=== PATIENT | female | born 1970 | race Caucasian/White ===

== ENCOUNTER → 2017-10-28 16:14 | Outpatient (CLI) | payer OTHER, SELFPAY ==
--- NOTE | 2017-10-28 16:20 | MRI_ITS ---
STUDY: MRI LUMBAR SPINE WITHOUT CONTRAST REASON FOR EXAM: Female, 47 years old. Back and bilateral leg pain. TECHNIQUE: Standardized fat and water weighted pulse sequences were obtained in the sagittal and axial planes. COMPARISON: Radiographs of the lumbar spine dated August 20, 2007. FINDINGS: There is a focus of abnormal signal within the inferior aspect of the T11 vertebral body. This is bright on the T1-weighted images and dark on the T2-weighted images. T12-L1: Normal endplates. Normal disc height, signal and morphology. Normal bilateral facet joints. Normal central canal and bilateral lateral recesses. Normal bilateral intervertebral neural foramina. Normal lumbar lordosis. There is no substantial scoliosis. Normal conus medullaris that terminates at the T12-L1. There appears to be a lipoma of the filum extending from L1-L2 to L3. L1-2: Normal endplates. Normal disc height, signal and morphology. Normal bilateral facet joints. Normal central canal and bilateral lateral recesses. Normal bilateral intervertebral neural foramina. L2-3: Normal endplates. Normal disc height, signal and morphology. Normal bilateral facet joints. Normal central canal and bilateral lateral recesses. Normal bilateral intervertebral neural foramina. L3-4: Normal endplates. Normal disc height, signal and morphology. Normal bilateral facet joints. Normal central canal and bilateral lateral recesses. Normal bilateral intervertebral neural foramina. L4-5: There is mild annular disk bulge and osteophyte complex. There is mild degenerative arthropathy of the facet joints. Bilateral neuroforamina are narrowed without MR evidence for nerve impingement. There is no significant central canal stenosis. L5-S1: There is a broad left central foraminal disc protrusion with possible small annular tear. There is questionable impingement of the left S1 nerve root at the lateral recess. Neural foramina are mildly narrowed without evidence for nerve impingement at the neural foramina. No significant central acquired canal stenosis. Normal visualized sacral ala. Normal visualized paraspinous soft tissue structures. MRI/Spine Lumbar (Routine) IMPRESSION: 1. 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 2. Lipoma of the filum. Electronically Signed: Dayana Nicole MD at 0:00 EST , Service support ,
== END ==
PROVIDERS: Family Provider Internal Medicine; PCP Internal Medicine; Visit Provider Internal Medicine Rheumatology
DX: M54.16 Radiculopathy, lumbar region (principal)
CPT/HCPCS: 72148

== ENCOUNTER 2018-08-15 00:35 | Emergency (ER) | payer OTHER, SELFPAY ==
[2018-08-15] VITALS (7 sets, daily range): BP systolic 121–159; BP diastolic 64–99; PULSE 65–79; RESP 10–20; TEMP 36.4–36.7; O2SAT 98–100; BMI 21.2
--- NOTE | 2018-08-15 01:07 | EKG12_ITS ---
Test Reason : SOB Blood Pressure : / mmHG Vent. Rate : 066 BPM Atrial Rate : 066 BPM P-R Int : 118 ms QRS Dur : 080 ms QT Int : 396 ms P-R-T Axes : 060 033 041 degrees QTc Int : 415 ms Normal sinus rhythm Normal ECG Confirmed by SHANTEL CALLAHAN, SAM ([id number]), assignment desk editor ATTILA RAMIREZ ([id number] on 08/17/2018 3:13:16 PM Referred By: ALONSO Confirmed By:SAM FUNES MD
--- NOTE | 2018-08-15 01:08 | CT_ITS ---
STUDY: CTA CHEST REASON FOR EXAM: Female, 48 years old. Shortness of breath. Pain right shoulder blade with inspiration. Elevated blood pressure. RADIATION DOSAGE (If Supplied By Facility): CTDIvol = ( 5.66 ) mGy, DLP = ( 260.44 ) mGycm TECHNIQUE: The examination was performed with the intravenous administration of 75ML ml of Isovue 370 contrast material. Post-processing of the angiographic images was performed, with multiplanar reformation and 3D reconstruction. Individualized dose optimization techniques were used for this CT. COMPARISON: March 26, 2014. FINDINGS: Normal enhancement of the main pulmonary artery and right and left pulmonary arteries. Normal enhancement of the bilateral peripheral pulmonary arteries. There is no demonstrated pulmonary embolism. Normal thoracic aorta and visualized great vessels. There is no demonstrated aortic dissection. Normal heart and pericardium. Normal mediastinum. Normal hilar regions. Normal visualized trachea and bronchi. The lungs are well expanded. Normal pulmonary parenchyma. Normal pleura. Normal chest wall structures. Normal osseous structures. Normal visualized upper abdomen. CT/CTA Chest W/WO Contrast IMPRESSION: Normal CTA chest examination, without a demonstrated pulmonary embolism or arterial dissection. Electronically Signed: Onel Mahajan MD at 2:45 EST , Service support ,
[2018-08-15 01:25] LABS: Absolute Lymphocyte Count 1.97 X10^3/ul (0.83-4.51); Absolute Neutrophil Count 3.1 X10^3/uL (2.0-7.7); Basophil# 0.03 X10^3/uL; Basophil% 0.5 % (0-1); Eosinophils% 1.8 % (0-5); Hematocrit 33.7 % (37-47); Hemoglobin 11.4 g/dl (12.0-15.0); Lymphocyte # 1.97 X10^3/ul (4.0); Lymphocyte % 34.9 % (19-41); Mean Corp Hgb Conc 33.8 g/gl (32-36); Mean Corpuscular Hgb 31.6 pg (27.0-32.0); Mean Corpuscular Volume 93.4 fL (81-99); Monocyte# 0.48 X10^3/uL; Monocyte% 8.5 % (0-10); Neutrophil # 3.06 X10^3/uL (2.7-7.7); Neutrophil % 54.1 % (47-70); Platelet Count 264 K/mm3 (150-450); RBC Distribution Width CV 12.2 % (11.6-14.6); RBC Distribution Width SD 39.9 fl (35.1-43.9); Red Blood Count 3.61 M/mm3 (4.2-5.4); White Blood Count 5.7 K/mm3 (4.4-11.0)
[2018-08-15 01:26] LABS: POSITIVE COUNT NO; POSITIVE DIFFERENTIAL NO; POSITIVE MORPHOLOGY NO
[2018-08-15 01:31] LABS: Prothrombin Time (Protime)PT. 12.9 SECONDS (11.7-14.9)
[2018-08-15 01:46] LABS: ALB/GLOB Ratio 1.1 RATIO (0.9-2.4); AST(SGOT) 110 U/L (15-37); Alanine Aminotransfer ALT/SGPT 79 U/L (13-56); Albumin, Serum 3.6 g/dL (3.2-5.0); Alkaline Phosphatase 81 U/L (45-117); Anion Gap 8 (5-15); BUN 17 mg/dL (7-18); BUN/Creat Ratio 25.4 RATIO (10-20); Chloride 107 mmol/L (98-107); Creatinine, Serum 0.67 mg/dL (0.55-1.02); EST Glomerular Filtration Rate 100 mL/min (>60); Est Glom Filt Rate - Afr Amer 121 mL/min (>60); Estimated Creatinine Clearance 102.94 ml/min; Globulin 3.4 g/dL (2.2-4.2); Glucose 110 mg/dL (74-106); Lipase 215 U/L (73-393); Potassium 3.7 mmol/L (3.5-5.1); Sodium Level 141 mmol/L (136-145)
--- NOTE | 2018-08-15 03:13 | US_ITS ---
STUDY: ABDOMINAL ULTRASOUND - RIGHT UPPER QUADRANT REASON FOR VISIT: Female, 48 years old. Right upper quadrant pain radiating to back for 2 days. TECHNIQUE: Ultrasound evaluation of the right upper quadrant was performed with real-time and static damon-scale imaging. TECHNICAL QUALITY: Adequate. COMPARISON: CTA chest August 15, 2018. FINDINGS: Liver: The liver measures 13.6 cm. There is normal echogenicity of the liver. The bile ducts are within normal limits. There is hepatic color flow. The direction of portal flow is hepatopetal. There is no demonstrated mass lesion. Gallbladder: Normal distended gallbladder. The gallbladder wall measures 2 mm. There is a negative sonographic Arreola's sign. There is no pericholecystic fluid. There are no gallstones. Common Bile Duct (C.B.D.): The common bile duct measures 3 mm. Pancreas: Normal size of the head, body and tail of the pancreas. There is normal echogenicity of the pancreas. There is no demonstrated pancreatic mass or cyst. Right Kidney: Normal size of the right kidney. The right kidney measures 10.8 cm. Normal renal cortex. The right cortex measures 1.3 cm. There is no demonstrated renal mass or cyst. There is no right hydronephrosis. US/Gallbladder IMPRESSION: Normal right upper quadrant ultrasound examination. Electronically Signed: Onel Mahajan MD at 5:42 EST , Service support ,
--- NOTE | 2018-08-15 05:53 | ED.VISSUMM ---
- ER Visit Summary Date of Service: 08/15/18 Chief Complaint: Epigastric abdominal pain and bloating, chest pain, shortness of breath History of Present Illness: The patient is a 48 F who presents with chest pain shortness of breath and abdominal bloating. She has been taking a lot of Advil for recent dry socket after a dental extraction last week. She was also recently started on penicillin. She complains of epigastric abdominal bloating and tightness and states that this radiates into her chest and through into her back. Her pain is worse with deep breathing. She feels short of breath and feels as if she cannot take a full breath. She also had palpitations. She reports chills but no fever. No nausea vomiting or diarrhea. No congestion rhinorrhea or cough. No history of prior similar symptoms. She has a history of mitral valve prolapse but really no other medical history. No diabetes hypertension hyperlipidemia. No recent travel or immobilization. No history of prior DVT pulmonary embolism or cancer. Physical Examination: Afebrile vitals are normal Moist mucous membranes Heart regular rate and rhythm Lungs are clear Abdomen soft nontender nondistended 1+ symmetric lower extremity edema nontender Test Results: EKG shows sinus rhythm at a rate of 66. Laboratory studies notable for ALT of 79 AST of 170 lipase of 45. INR 1.0. Troponin is negative. CTA of the chest is normal. Right upper quadrant ultrasound is normal. Emergency Department Course and Treatment: Initially given patient's complaints of chest pain shortness of breath pleuritic pain radiation to the back and surgery last week I was concerned about pulmonary embolism. CTA of the chest was obtained which is unremarkable. She does have mild elevation of her transaminases. Given her reports of abdominal bloating and epigastric discomfort I also obtained a right upper quadrant ultrasound which is normal. I am uncertain of the etiology of the patient's symptoms although the bloating could be related to her recent NSAID use and a component of gastritis. I do not believe the patient has any serious life-threatening pathology I do not believe hospitalization is warranted at this time however she was given clear return precautions of specific signs and symptoms to monitor for and conditions which should prompt return here to the emergency department for reevaluation. She was advised to follow-up with her primary care physician. All questions answered bedside. Patient agreeable to the plan was discharged home. Treatment Plan: [] Disposition: Discharge Impression: Chest pain Abdominal pain This note was generated with Maintenance Assistant dictation software. It may contain incorrect words, spelling, and punctuation that were not noted in review of the chart prior to signing ED Disposition - Plan for ED Patient: Chief Complaint: Shortness of Breath Referrals: Mary Díaz MD [Primary Care Provider] -
--- NOTE | 2018-08-15 05:56 | ED.DEP ---
ED Disposition - Plan for ED Patient: Chief Complaint: Shortness of Breath Instructions: ED Chest Pain NonCardiac, ED Abdominal Pain Unkn Cause Referrals: Mary Díaz MD [Primary Care Provider] -
--- OUTSIDE RECORDS SUMMARY | 2018-11-16 14:16 | XMS RPT_ITS ---
:1970 Author Organization [facility] Care Team Providers Name Role Phone DOMONIQUE DÍAZ Attending Unavailable MARYAM EMMANUEL (COVERED BUCKLE ASSEMBLER) Attending Unavailable DOMONIQUE DÍAZ Referring Unavailable TALAMPDOMONIQUE ALFONSO Attending Unavailable DOMONIQUE DÍAZ Referring Unavailable GANSHIRA RUBI Attending Unavailable CHAPO POON Referring Unavailable GANTA, SHIRA Referring Unavailable Talampas, Domonique Primary Care Unavailable Chapo Poon Attending Unavailable SEN MCQUEEN Attending Unavailable SEN MCQUEEN Referring Unavailable Talampas, Domonique Primary Care Unavailable PROBLEMS PROBLEMS DATE TYPE CONDITION / CODE ATTENDING STATUS SOURCE 08/24/2018 Active Abnormal levels NA Active [facility] of other serum [facility] [place] enzymes / Repository R74.8(ICD-10) 09/09/2018 Unknown R10.13 - Chapo Poon Active [facility] Epigastric pain / Community R10.13(ICD-10) Hospital Repository 06/02/2018 Active Other terminal 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 NA Active [facility] (current) drug [facility] [place] therapy / Repository Z79.899(ICD-10) 06/02/2018 Active Vitamin D NA Active [facility] deficiency, [facility] [place] unspecified / Repository E55.9(ICD-10) PROCEDURES PROCEDURES No Procedure Records FoundRESULTS RESULTS HEPATIC FUNCTN PANEL Collected: 08/24/2018 Status: F Source: [place] 12:06 PM [facility] REPOSITORY TYPE CODE TESTS RESULT OUT OF REFERENCE UNITS RANGE LAB ALB 3.9-4.9 g/dL Albumin 4.3 LAB TBIL 0.2-1.3 mg/dL Bilirubin, Total 0.5 LAB CBIL <0.2 mg/dL Bilirubin,Conjuga <0.2 marti LAB ALKP 34-123 U/L Alkaline Phosphatase 39 LAB AST 13-35 U/L AST 14 LAB ALT 7-38 U/L ALT 10 LAB TP 6.3-8.0 g/dL Protein, Total 6.6 GGT Collected: 08/24/2018 Status: F Source: [place] 12:06 PM [facility] TYPE CODE TESTS RESULT OUT OF RANGE REFERENCE UNITS LAB GGT 6-46 U/L GGT 36 Performed By: #### GGT #### [place] [address] [place] [address] HEPATITIS REMOTE PANEL Collected: 08/24/2018 Status: F Source: [place] 12:06 PM [facility] REPOS[facility]ORY TYPE CODE TESTS RESULT OUT OF REFERENCE UNITS RANGE LAB AHBCOT Negative Hep B Core Ab,Total Negative LAB AHCV Negative Hepatitis C Ab Negative IA LAB HBSAGR Negative HBsAg Negative LAB AHBSAG Negative HepB Surface Ab,Qual Negative Result Comment: NEGATIVE Performed By: #### HREMOP #### [place] [address] 12 LEAD ELECTROCARDIOGRAM Observed: 08/17/2018 Status: F Source: [place] 3:13 PM [facility] REPOSITORY [facility] Cardiovascular Services [address] [place] [address] 12 Lead EKG 08/15/18 0117 MR#: [id number] Acct: [id number] Name: PARIS BERGERON Rep #: [id number] : 1970 48 From: Jose Francois MD Attending Dr: Status: DEP ER Ordering Dr: Chapo Poon MD Date: 08/15/18 Location: ED Sex: F C Admitted: Test Reason : SOB Blood Pressure : / mmHG Vent. Rate : 066 BPM Atrial Rate : 066 BPM P-R Int : 118 ms QRS Dur : 080 ms QT Int : 396 ms P-R-T Axes : 060 033 041 degrees QTc Int : 415 ms Normal sinus rhythm Normal ECG Confirmed by SHANTEL CALLAHAN, JOSE ([id number]), offline editor ATTILA RAMIREZ ([id number]) on 08/17/2018 3:13:16 PM Referred By: ALONSO Confirmed By:JOSE FRANCOIS MD 08/17/18 1513 Date Jose Francois MD CC: Chapo Poon MD; Domonique Díaz MD Signed PROGRESS Observed: 08/16/2018 Status: COMPLETED Source: [place] 2:42 PM [facility] REPOSITORY O ID: [id number] Author: Shira Valdez Service: (none) Author Type: Physician Type: Progress Notes Filed: 08/16/2018 5:20 PM Note Text: Reason for Visit Patient presents with: new limited: hospital follow up-swelling in legs and feet and short of breath- Paris Bergeron is a 48 year old female who presents here today for Above Complaints.. Health Maintenance DTAP,TDAP,TD(1 - Tdap) MAMMOGRAM INFLUENZA(1) HPI The went to ER with chest pain, SOB and abdominal Pain, she had CTA to rule out PE, which was negative ..She then had US liver due to elevated LFTs AST was 110 and ALT was 79. Her abdominal pain was thought to be from NSAID use. She has heart palpitations and metoprolol usually takes care of it. She drinks a lot of caffeine recently. The last time she took the NSAID'S was in April. She was asked if she was on any type of steroids on the vitamin D. Her creat was normal, BUN was high. She is drinking around 1 to 2 cups a day, notes if she drinks more she feels very anxious. She has chronic headache, her nausea was better than in the past. From chronic gerd she is on H arnulfo to continue the same. Due to her comlaint of back pain, she had her lipase and pancrease checked with ct and it has been normal in imaging with a negative lipase level. No problem-specific Assessment AND Plan notes found for this encounter. 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 - Mammographic microcalcification - Mitral valve disorders(424.0) MVP - Other and unspecified hyperlipidemia PAST SURGICAL HISTORY Procedure Laterality Date - DELIVERY ONLY , low cervical - EGD W/O OR W/BRUSH/WASH 06/15/2013 EGD - PAST SURGICAL HISTORY OF urethra stretching age 2 - PAST SURGICAL HISTORY OF DANDC - PAST SURGICAL HISTORY OF wisdom teeth - REPAIR UMBILICAL JAMMIE,<5Y/O,REDUC 2001 Hernia repair, umbilical <5yr FAMILY HISTORY Problem Relation Age of Onset - Hypertension Mother - Diabetes Mother - Stroke Mother carotid disease - Heart Father GA - Hypertension Maternal Grandmother - Heart Maternal Grandfather - Diabetes Maternal Grandfather - Breast Cancer Paternal Grandmother - Heart Brother GA - Hypertension Brother Social History Substance Use Topics - Smoking status: Never Smoker - Smokeless tobacco: Never Used - Alcohol use Yes Comment: 1-2 wine or beer a week Past medical history, appointments, medications, allergies reviewed. Pertinent Lab/Diagnostic Studies are reviewed and discussed today Current Outpatient Prescriptions: - Cholecalciferol, Vitamin D3, 2,000 unit cap - metoprolol succinate ER (TOPROL XL) 50 mg 24 hr tablet - rosuvastatin (CRESTOR) 10 mg tablet - sucralfate (CARAFATE) 1 gram tablet Review of Systems CONSTITUTIONAL: No fevers, chills night sweats, unintended weight loss CARDIOVASCULAR: No chest pain, dyspnea, palpitations, orthopnea, PND, ankle edema. PULM: No dyspnea, unexplained cough. GI: No dysphagia/odynophagia, problematic reflux, constipation, diarrhea, changes in stool habits, hematochezia, melena. : No new urinary complaints, including dysuria, gross hematuria or pyuria. NEURO: No new balance problems, peripheral weakness/paresthesias or numbness of concern. Physical Exam Pulse 83 Resp 12 Ht 151.1 cm (4' 11.5) Wt 67.1 kg (148 lb) SpO2 100% BMI 29.39 kg/m? General appearance: Well appearing, alert, in no acute distress, well nourished. Skin: Skin color, texture, turgor normal, no suspicious rashes or lesions Head: Normocephalic, no masses, lesions, tenderness or abnormalities Eyes: Anicteric sclera. Pupils are equally round and reactive to light. Extraocular movements are intact. Lungs: Lungs clear to auscultation. No wheezing, rhonchi, rales Heart: RRR without murmur, gallop, or rubs. Extremities: No deformities, edema- trace , No skin discoloration, clubbing or cyanosis. Good capillary refill. ASSESSMENT/PLAN: 1. Elevated liver enzymes - ICD9: 790.5, ICD10: R74.8 (primary diagnosis) I think her issues are from taking round the clock, tylenol and brufen. Can explain her swelling in the legs, and her liver enzymes, Discussed this with her, asked her to report back to me in 1 week if her swelling has not subsided - HEPATIC FUNCTION PNL - GGT BLD - HEP REMOTE PANEL BL 2. MVP (mitral valve prolapse) - ICD9: 424.0, ICD10: I34.1 To limit coffee to one cup a day. 3. Gastroesophageal reflux disease without esophagitis - ICD9: 530.81, ICD10: K21.9 - Discussed lifestyle modifications including losing weight, limiting caffeine, no meals three hours before sleep and head of bed elevation. SHIRA VALDEZ MD CNOV Observed: 08/16/2018 Status: COMPLETED Source: [place] 2:40 PM [facility] RE[facility]ITORY Office Visit (INTMWS) PARIS BERGERON ([id number]) 1970 F Date Time Provider Department 08/16/18 2:40 PM SHIRA VALDEZ INTMWS During your visit today, we recorded the following information about you: Temperature Pulse Respiration Blood pressure 98.7 degrees 83/minute 12/minute 122/66 Weight Height 67.1 kg 1.511 m SHIRA VALDEZ MD 08/16/2018 5:20 PM Addendum Reason for Visit Patient presents with: new limited: hospital follow up-swelling in legs and feet and short of breath- Dr.Talamapas Paris Nassar Rubio is a 48 year old female who presents here today for Above Complaints.. Health Maintenance DTAP,TDAP,TD(1 - Tdap) MAMMOGRAM INFLUENZA(1) HPI The went to ER with chest pain, SOB and abdominal Pain, she had CTA to rule out PE, which was negative ..She then had US liver due to elevated LFTs AST was 110 and ALT was 79. Her abdominal pain was thought to be from NSAID use. She has heart palpitations and metoprolol usually takes care of it. She drinks a lot of caffeine recently. The last time she took the NSAID'S was in April. She was asked if she was on any type of steroids on the vitamin D. Her creat was normal, BUN was high. She is drinking around 1 to 2 cups a day, notes if she drinks more she feels very anxious. She has chronic headache, her nausea was better than in the past. From chronic gerd she is on H arnulfo to continue the same. Due to her comlaint of back pain, she had her lipase and pancrease checked with ct and it has been normal in imaging with a negative lipase level. No problem-specific Assessment AND Plan notes found for this encounter. 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 - Mammographic microcalcification - Mitral valve disorders(424.0) MVP - Other and unspecified hyperlipidemia PAST SURGICAL HISTORY Procedure Laterality Date - DELIVERY ONLY , low cervical - EGD W/O OR W/BRUSH/WASH 06/15/2013 EGD - PAST SURGICAL HISTORY OF urethra stretching age 2 - PAST SURGICAL HISTORY OF DANDC - PAST SURGICAL HISTORY OF wisdom teeth - REPAIR UMBILICAL JAMMIE,<5Y/O,REDUC 2001 Hernia repair, umbilical <5yr FAMILY HISTORY Problem Relation Age of Onset - Hypertension Mother - Diabetes Mother - Stroke Mother carotid disease - Heart Father [place] - Hypertension Maternal Grandmother - Heart Maternal Grandfather - Diabetes Maternal Grandfather - Breast Cancer Paternal Grandmother - Heart Brother [place] - Hypertension Brother Social History Substance Use Topics - Smoking status: Never Smoker - Smokeless tobacco: Never Used - Alcohol use Yes Comment: 1-2 wine or beer a week Past medical history, appointments, medications, allergies reviewed. Pertinent Lab/Diagnostic Studies are reviewed and discussed today Current Outpatient Prescriptions: - Cholecalciferol, Vitamin D3, 2,000 unit cap - metoprolol succinate ER (TOPROL XL) 50 mg 24 hr tablet - rosuvastatin (CRESTOR) 10 mg tablet - sucralfate (CARAFATE) 1 gram tablet Review of Systems CONSTITUTIONAL: No fevers, chills night sweats, unintended weight loss CARDIOVASCULAR: No chest pain, dyspnea, palpitations, orthopnea, PND, ankle edema. PULM: No dyspnea, unexplained cough. GI: No dysphagia/odynophagia, problematic reflux, constipation, diarrhea, changes in stool habits, hematochezia, melena. : No new urinary complaints, including dysuria, gross hematuria or pyuria. NEURO: No new balance problems, peripheral weakness/paresthesias or numbness of concern. Physical Exam Pulse 83 Resp 12 Ht 151.1 cm (4' 11.5) Wt 67.1 kg (148 lb) SpO2 100% BMI 29.39 kg/m? General appearance: Well appearing, alert, in no acute distress, well nourished. Skin: Skin color, texture, turgor normal, no suspicious rashes or lesions Head: Normocephalic, no masses, lesions, tenderness or abnormalities Eyes: Anicteric sclera. Pupils are equally round and reactive to light. Extraocular movements are intact. Lungs: Lungs clear to auscultation. No wheezing, rhonchi, rales Heart: RRR without murmur, gallop, or rubs. Extremities: No deformities, edema- trace , No skin discoloration, clubbing or cyanosis. Good capillary refill. ASSESSMENT/PLAN: 1. Elevated liver enzymes - ICD9: 790.5, ICD10: R74.8 (primary diagnosis) I think her issues are from taking round the clock, tylenol and brufen. Can explain her swelling in the legs, and her liver enzymes, Discussed this with her, asked her to report back to me in 1 week if her swelling has not subsided - HEPATIC FUNCTION PNL - GGT BLD - HEP REMOTE PANEL BL 2. MVP (mitral valve prolapse) - ICD9: 424.0, ICD10: I34.1 To limit coffee to one cup a day. 3. Gastroesophageal reflux disease without esophagitis - ICD9: 530.81, ICD10: K21.9 - Discussed lifestyle modifications including losing weight, limiting caffeine, no meals three hours before sleep and head of bed elevation. SHIRA VALDEZ MD Referring Provider: CHAPO POON [[id number]] Allergies As of Date: 08/16/2018 Noted Allergy Reaction LEVAQUIN (LEVOFLOXACIN) 06/24/2011 14 - Other: See Comments Comments: Numbness, palpitations ALEVE (NAPROXEN SODIUM) 05/18/2013 14 - Other: See Comments Comments: BP elevation CODEINE 10/20/2007 8 - GI Upset Comments: Heart pounding Date Reviewed: 08/16/2018 Reviewed by: Mellisa Ralph LPN - Fully Assessed Reason for Visit: new limited [Other] Cmt: hospital follow up-swelling in legs and feet and short of breath- Primary Visit Diagnosis:Elevated liver enzymes [R74.8] Other Visit Diagnoses:MVP (mitral valve prolapse) [I34.1] Gastroesophageal reflux disease without esophagitis [K21.9] Order(s):HEPATIC FUNCTION PNL [SQHFP] Order #: [id number] FUTURE GGT BLD [SQGGT] Order #: [id number] FUTURE HEP REMOTE PANEL BL [SQHREMOP] Order #: [id number] FUTURE ranitidine (ZANTAC) 150 mg tabletTake 1 tablet by mouth twice daily.Disp: 60 tabletRfl: 1 Prescriptions as of 08/16/2018 Sig: CHOLECALCIFEROL (VITAMIN D3) * Take 2 capsules by mouth once* METOPROLOL SUCCINATE ER 50 MG* Take 1 tablet by mouth once d* RANITIDINE 150 MG TABLET Take 1 tablet by mouth twice * ROSUVASTATIN 10 MG TABLET Take 1 tablet by mouth daily * SUCRALFATE 1 GRAM TABLET Take 1 tablet by mouth before* More... Problem List As Of Date 08/16/2018 Noted Resolved Palpitations [R00.2] INVALID FOR*10/14/2015 More... Lumbago [M54.5] INVALID FOR*03/16/2014 More... Dermatophytosis of nail [B35.1] INVALID FOR*06/16/2013 More... Overweight(278.02) [E66.3] INVALID FOR*10/14/2015 Other and unspecified hyperlipidemia [E78.5] INVALID FOR*10/14/2015 More... MVP (mitral valve prolapse) [I34.1] INVALID FOR* Cervicalgia [M54.2] INVALID FOR* Epigastric pain [R10.13] INVALID FOR*10/14/2015 Family history of ischemic heart disease [Z82.4*INVALID FOR* Dysuria [R30.0] INVALID FOR*10/14/2015 Bilateral flank pain [R10.9] INVALID FOR*10/14/2015 Vaginal discharge [N89.8] INVALID FOR*10/14/2015 History of myositis [Z87.39] INVALID FOR* Lumbago [M54.5] INVALID FOR* Hyperlipidemia [E78.5] INVALID FOR* Atypical chest pain [R07.89] INVALID FOR* Raynaud's phenomenon without gangrene [I73.00] INVALID FOR* Prescriptions ordered this encounter Disp Refills Start End RANITIDINE 150 MG TABLET 60 t* 1 08/16/2018 Route: ORAL Sig: Take 1 tablet by mouth twice daily. Encounter Status:Closed by SHIRA VALDEZ MD on 08/16/18 DISCHARGE INSTRUCTION Observed: 08/15/2018 Status: F Source: [place] 5:57 AM [facility] Medical Records Department [address] [place] [address] Discharge Instruction 08/15/18 0556 MR#: [id number] Acct: [id number] Name: PARIS BERGERON Rep #: [id number] : 1970 48 From: Chapo Poon MD PCP: Domonique Díaz MD Status: REG ER ED Disposition - Plan for ED Patient: Chief Complaint: Shortness of Breath Instructions: ED Chest Pain NonCardiac, ED Abdominal Pain Unkn Cause Referrals: Domonique Díaz MD [Primary Care Provider] - What to do if you have Problems For any increased pain, shortness of breath, bleeding, nausea or vomiting, chest pain, or any unexpected problems, contact your Primary Care Provider. Call [facility] ([phone]) or report to the closest Emergency Room. Call 911 if necessary. 08/15/18 0557 <Electronically signed by Chapo Poon MD> Date Chapo Poon MD Cosigner Signature (If Indicated): Date CC: Domonique íDaz MD EMERGENCY DEPARTMENT Observed: 08/15/2018 Status: F Source: [place] SUMMARY 5:56 AM [facility] REPOSITORY [facility] Medical Records Department [address] [place] [address] Emergency Department Summary 08/15/18 0553 MR#: [id number] Acct: [id number] Name: PARIS BERGERON Rep #: [id number] : 1970 48 From: Chapo Poon MD PCP: Domonique Díaz MD Status: REG ER - ER Visit Summary Date of Service: 08/15/18 Chief Complaint: Epigastric abdominal pain and bloating, chest pain, shortness of breath History of Present Illness: The patient is a 48 F who presents with chest pain shortness of breath and abdominal bloating. She has been taking a lot of Advil for recent dry socket after a dental extraction last week. She was also recently started on penicillin. She complains of epigastric abdominal bloating and tightness and states that this radiates into her chest and through into her back. Her pain is worse with deep breathing. She feels short of breath and feels as if she cannot take a full breath. She also had palpitations. She reports chills but no fever. No nausea vomiting or diarrhea. No congestion rhinorrhea or cough. No history of prior similar symptoms. She has a history of mitral valve prolapse but really no other medical history. No diabetes hypertension hyperlipidemia. No recent travel or immobilization. No history of prior DVT pulmonary embolism or cancer. Physical Examination: Afebrile vitals are normal Moist mucous membranes Heart regular rate and rhythm Lungs are clear Abdomen soft nontender nondistended 1+ symmetric lower extremity edema nontender Test Results: EKG shows sinus rhythm at a rate of 66. Laboratory studies notable for ALT of 79 AST of 170 lipase of 45. INR 1.0. Troponin is negative. CTA of the chest is normal. Right upper quadrant ultrasound is normal. Emergency Department Course and Treatment: Initially given patient's complaints of chest pain shortness of breath pleuritic pain radiation to the back and surgery last week I was concerned about pulmonary embolism. CTA of the chest was obtained which is unremarkable. She does have mild elevation of her transaminases. Given her reports of abdominal bloating and epigastric discomfort I also obtained a right upper quadrant ultrasound which is normal. I am uncertain of the etiology of the patient's symptoms although the bloating could be related to her recent NSAID use and a component of gastritis. I do not believe the patient has any serious life-threatening pathology I do not believe hospitalization is warranted at this time however she was given clear return precautions of specific signs and symptoms to monitor for and conditions which should prompt return here to the emergency department for reevaluation. She was advised to follow-up with her primary care physician. All questions answered bedside. Patient agreeable to the plan was discharged home. Treatment Plan: [] Disposition: Discharge Impression: Chest pain Abdominal pain This note was generated with Guidefitter dictation software. It may contain incorrect words, spelling, and punctuation that were not noted in review of the chart prior to signing ED Disposition - Plan for ED Patient: Chief Complaint: Shortness of Breath Referrals: Domonique Díaz MD [Primary Care Provider] - What to do if you have Problems For any increased pain, shortness of breath, bleeding, nausea or vomiting, chest pain, or any unexpected problems, contact your Primary Care Provider. Call [facility] ([phone]) or report to the closest Emergency Room. Call 911 if necessary. 08/15/18 0556 <Electronically signed by Chapo Poon MD> Date Chapo Poon MD Cosigner Signature (If Indicated): Date CC: Domonique Díaz MD GALLBLADDER Observed: 08/15/2018 Status: F Source: [place] 3:13 AM [facility] REPOSITORY [facility] Imaging Services [address] [place] [address] [place] [address] Gallbladder MR#: [id number] Acct: [id number] Name: PARIS BERGERON Rep #: [id number] : 1970 F 48 From: Onel Mahajan PCP: Domonique Díaz MD Status: REG ER Study: Gallbladder Date of Exam: 08/15/18 Exam# [id number] Ordering Dr: Chapo Poon MD STUDY: ABDOMINAL ULTRASOUND - RIGHT UPPER QUADRANT REASON FOR VISIT: Female, 48 years old. Right upper quadrant pain radiating to back for 2 days. TECHNIQUE: Ultrasound evaluation of the right upper quadrant was performed with real-time and static damon-scale imaging. TECHNICAL QUALITY: Adequate. COMPARISON: CTA chest August 15, 2018. FINDINGS: Liver: The liver measures 13.6 cm. There is normal echogenicity of the liver. The bile ducts are within normal limits. There is hepatic color flow. The direction of portal flow is hepatopetal. There is no demonstrated mass lesion. Gallbladder: Normal distended gallbladder. The gallbladder wall measures 2 mm. There is a negative sonographic Arreola's sign. There is no pericholecystic fluid. There are no gallstones. Common Bile Duct (C.B.D.): The common bile duct measures 3 mm. Pancreas: Normal size of the head, body and tail of the pancreas. There is normal echogenicity of the pancreas. There is no demonstrated pancreatic mass or cyst. Right Kidney: Normal size of the right kidney. The right kidney measures 10.8 cm. Normal renal cortex. The right cortex measures 1.3 cm. There is no demonstrated renal mass or cyst. There is no right hydronephrosis. US/Gallbladder IMPRESSION: Normal right upper quadrant ultrasound examination. Electronically Signed: Onel Mahajan MD at 5:42 EST , Service support , CC: Chapo Poon MD; Domonique Díaz MD Machine Fastener: Signed CBC W/DIFF, AUTOMATED Collected: 08/15/2018 Status: F Source: [place] 1:15 AM [facility] REPOSITORY TYPE CODE TESTS RESULT OUT OF RANGE REFERENCE UNITS LAB L100.1000 4.4-11.0 K/mm3 Normal WBC 5.7 LAB L100.1200 4.2-5.4 M/mm3 Low RBC 3.61 LAB L100.1300 12.0-15.0 g/dl Low HGB 11.4 LAB L100.1400 37-47 % Low HCT 33.7 LAB L100.1500 81-99 fL Normal MCV 93.4 LAB L100.1600 27.0-32.0 pg Normal MCH 31.6 LAB L100.1700 32-36 g/gl Normal MCHC 33.8 LAB L100.1810 11.6-14.6 % Normal RDW CV 12.2 LAB L100.1820 35.1-43.9 fl Normal RDW SD 39.9 LAB L100.1900 150-450 K/mm3 Normal PLT 264 LAB L100.2000 6.2-12.0 fl Normal MPV 10.0 LAB L100.2100 47-70 % Normal NEUT% 54.1 LAB L100.2200 19-41 % Normal LY% 34.9 LAB L100.2300 0-10 % Normal MONO% 8.5 LAB L100.2400 0-5 % Normal EO% 1.8 LAB L100.2500 0-1 % Normal BASO% 0.5 LAB L100.2550 0.0-0.9 % Normal IM GRAN % 0.200 Result Comment: IG% - Immature Granulocytes (promyelocytes, myelocytes and metamyelocytes) > 1% indicates that a LEFT SHIFT is Present. LAB L100.2620 2.0-7.7 X10 3/uL Normal Absolute Neut 3.1 LAB L100.2720 0.83-4.51 X10 3/ul Normal Absolute Lymph 1.97 Performed By: #### L100.0100 #### [facility] [place], [address] PROTHROMBIN TIME W/INR Collected: 08/15/2018 Status: F Source: [place] 1:15 AM [facility] REPOSITORY TYPE CODE TESTS RESULT OUT OF RANGE REFERENCE UNITS LAB L300.4150 11.7-14.9 SECONDS Normal PROTIME 12.9 LAB L300.4200 Normal INR 1.0 Performed By: #### L300.3900 #### [facility] [address] [place], [address] COMPREHENSIVE METABOLIC Collected: 08/15/2018 Status: F Source: [place] [facility] 1:15 AM [facility] REPOSITORY TYPE CODE TESTS RESULT OUT OF RANGE REFERENCE UNITS LAB L501.0100 74-106 mg/dL High GLU 110 Result Comment: Fasting Glucose result from 100 to 125 mg/dL suggests IMPAIRED HOMEOSTASIS per A.D.A. criteria. Please note revised GLUCOSE reference range effective 2017. LAB L501.1000 7-18 mg/dL Normal BUN 17 LAB L501.1100 0.55-1.02 mg/dL Normal CREAT,SERUM 0.67 Result Comment: The validity of the calculated GFR AND GFRAA in patients over 70 years has not been determined. Clinical correlation is essential. LAB L501.1110 >60 mL/min Normal EST GFR 100 Result Comment: Non- GFR Calc LAB L501.1115 >60 mL/min Normal EST GFR - AA 121 Result Comment: GFR Calc LAB L501.1255 ml/min Normal Estimated CRCL 102.94 LAB L501.1300 10-20 RATIO High BUN/CRE 25.4 LAB L501.1500 6.4-8. g/dL 2 T PROT Normal 7.0 LAB L501.1800 3.2-5. g/dL 0 ALB Normal 3.6 LAB L501.1950 2.2-4. g/dL 2 GLOB Normal 3.4 LAB L501.2000 0.9-2. RATIO 4 A/G Normal 1.1 LAB L501.2200 8.5-10 mg/dL .1 CA Normal 9.0 LAB L501.4100 15-37 U/L High AST 110 LAB L501.4305 45-117 U/L ALK P Normal 81 LAB L501.4405 13-56 U/L High ALT 79 LAB L501.4600 0.20-1 mg/dL .00 T BILI Normal 0.40 LAB L501.5300 136-14 mmol/L 5 NA Normal 141 LAB L501.5600 3.5-5. mmol/L 1 K Normal 3.7 LAB L501.5900 98-107 mmol/L CL Normal 107 LAB L501.6100 21.0-3 mmol/L 2.0 CO2 Normal 26.0 LAB L501.6200 5-15 GAP Normal 8 Performed By: #### L500.4050, L501.2450, L501.4010 #### [facility] [address] [place], [address] LIPASE Collected: 08/15/2018 Status: F Source: [place] 1:15 AM [facility] REPOSITORY TYPE CODE TESTS RESULT OUT OF RANGE REFERENCE UNITS LAB L501.2450 73-393 U/L Normal LIPASE 215 Performed By: #### L500.4050, L501.2450, L501.4010 #### [facility] [address] [place], [place], [id number] TROPONIN-I Collected: 08/15/2018 Status: F Source: [place] 1:15 AM [facility] REPOSITORY TYPE CODE TESTS RESULT OUT OF RANGE REFERENCE UNITS LAB L501.4010 <0.045 ng/mL Normal < 0.015 TROPONIN-I Result Comment: TROPONIN-I EXPECTED VALUES <0.045 Negative 0.045 - 0.590 Consistent with Cardiac Damage > OR = 0.600 Critical Value Not every elevated troponin is indicative of GA. These values should be used with clinical judgement in examining the patient's clinical picture for diagnosis. To establish a diagnosis of GA versus myocardial injury, there must be a demonstrated rise and/or fall in the troponin values, in addition to ischemic symptoms, EKG changes, new regional wall motion abnormality, and/or angiographical evidence. PLEASE NOTE: REFERENCE RANGES EDITED 18 Performed By: #### L500.4050, L501.2450, L501.4010 #### [facility] [address] [place], [place], [address] CTA CHEST W/WO Observed: 08/15/2018 Status: F Source: [place] CONTRAST 1:09 AM [facility] REPOSITORY [facility] Imaging Services [address] [place] [address] CTA Chest W/WO Contrast MR#: [id number] Acct: [id number] Name: PARIS BERGERON Rep #: [id number] : 1970 F 48 From: Onel Mahajan PCP: Domonique Díaz MD Status: REG ER Study: CTA Chest W/WO Contrast Date of Exam: 08/15/18 Exam# [id number] Ordering Dr: Chapo Poon MD STUDY: CTA CHEST REASON FOR EXAM: Female, 48 years old. Shortness of breath. Pain right shoulder blade with inspiration. Elevated blood pressure. RADIATION DOSAGE (If Supplied By Facility): CTDIvol = ( 5.66 ) mGy, DLP = ( 260.44 ) mGycm TECHNIQUE: The examination was performed with the intravenous administration of 75ML ml of Isovue 370 contrast material. Post-processing of the angiographic images was performed, with multiplanar reformation and 3D reconstruction. Individualized dose optimization techniques were used for this CT. COMPARISON: March 26, 2014. FINDINGS: Normal enhancement of the main pulmonary artery and right and left pulmonary arteries. Normal enhancement of the bilateral peripheral pulmonary arteries. There is no demonstrated pulmonary embolism. Normal thoracic aorta and visualized great vessels. There is no demonstrated aortic dissection. Normal heart and pericardium. Normal mediastinum. Normal hilar regions. Normal visualized trachea and bronchi. The lungs are well expanded. Normal pulmonary parenchyma. Normal pleura. Normal chest wall structures. Normal osseous structures. Normal visualized upper abdomen. CT/CTA Chest W/WO Contrast IMPRESSION: Normal CTA chest examination, without a demonstrated pulmonary embolism or arterial dissection. Electronically Signed: Onel Mahajan MD at 2:45 EST , Service support , CC: Chapo Poon MD; Domonique Díaz MD Machine Fastener: Signed PROGRESS Observed: 06/07/2018 Status: COMPLETED Source: [place] 11:05 AM [facility] REPOSITORY HNO ID: [id number] Author: Domonique Díaz Service: (none) Author Type: Physician Type: Progress Notes Filed: 06/24/2018 1:11 AM Note Text: Patient presents with: Recheck: Follow up SUBJECTIVE: Paris Bergeron is a 47 year old year old lady here today for 6 month follow up appointment for review of medical conditions. Continuous sore throat. Feels like pugh in throat Pain in left ear Occasional drainage. Benadryl as needed. Ranitidine working better than prilosec for GERD symptoms--burning pain in chest and to back with burning in throat plus bloating. Cannot drink Coke or eat chocolate. Still working on losing more weight. Doing well overall. 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 - Mammographic microcalcification - Mitral valve disorders(424.0) MVP - Other and unspecified hyperlipidemia Current Outpatient Prescriptions: metoprolol succinate ER (TOPROL XL) 50 mg 24 hr tablet Take 1 tablet by mouth once daily. Cholecalciferol, Vitamin D3, 2,000 unit cap Take 2 capsules by mouth once daily. No current facility-administered medications for this visit. OBJECTIVE: BP 104/68 Pulse 76 Resp 20 Wt 66.8 kg (147 lb 3.2 oz) BMI 29.23 kg/m? Patient is alert, oriented times 3, no apparent distress, affect is bright, reactive. Last 5 Encounter BP Readings: Date: BP: 06/07/2018 104/68 03/08/2018 120/72 12/06/2017 124/72 05/31/2017 110/62 05/13/2017 142/86 Last 5 Encounter Wt Readings: Date: Wt: 06/07/2018 66.8 kg (147 lb 3.2 oz) 03/08/2018 66.2 kg (146 lb) 12/06/2017 66.7 kg (147 lb) 05/31/2017 65.3 kg (144 lb) 05/13/2017 66.2 kg (146 lb) HEENT: noted posterior pharynx with what looks like grown back of throat; also has tonsils too. Heart: Regular rate, rhythm, no murmurs, gallops, rubs. Lungs: Clear to auscultation, bilaterally, breathing non labored. Ext: No cyanosis, clubbing, or edema. Component Latest Ref Rng AND Units 10/18/2015 11/25/2016 06/02/2018 Protein, Total 6.3 - 8.0 g/dL 7.0 Albumin 3.9 - 4.9 g/dL 4.1 Calcium 8.5 - 10.2 mg/dL 9.4 Bilirubin, Total 0.2 - 1.3 mg/dL 0.7 Alkaline Phosphatase 32 - 117 U/L 30 (L) AST 13 - 35 U/L 15 Glucose 74 - 99 mg/dL 84 BUN 7 - 21 mg/dL 17 Creatinine 0.58 - 0.96 mg/dL 0.72 Sodium 136 - 144 mmol/L 139 Potassium 3.7 - 5.1 mmol/L 4.0 Chloride 97 - 105 mmol/L 102 CO2 22 - 30 mmol/L 25 Anion Gap 9 - 18 mmol/L 12 ALT 7 - 38 U/L 8 eGFR- >60 eGFR-All Other Races . >60 Triglyceride <150 mg/dL 37 62 55 Cholesterol, Total <200 mg/dL 207 (H) 235 (H) 218 (H) HDL Cholesterol >39 mg/dL 60 59 61 VLDL Cholesterol <30 mg/dL 7 12 11 LDL Cholesterol <100 mg/dL 140 (H) 164 (H) 146 (H) Fasting Time hrs FASTING 14 10 TC:HDL Ratio <5.10 3.45 3.98 3.57 LDL:HDL Ratio <2.54 2.33 2.78 2.39 Non HDL Cholesterol <130 mg/dL 147 176 (H) 157 (H) TSH 0.400 - 5.500 uU/mL 1.460 Magnesium 1.7 - 2.3 mg/dL 2.0 Vitamin D 25 Hydroxy 31.0 - 80.0 ng/mL 36.6 ASSESSMENT AND PLAN: Encounter Diagnosis ICD-10-CM 1. Gastroesophageal reflux disease without esophagitis K21.9 2. Pure hypercholesterolemia E78.00 LIPID PANEL BASIC 3. Left ear pain H92.02 worse with swallowing; suspect eustachian tube dysfunction 4. Sore throat J02.9 5. Vitamin D deficiency E55.9 VITAMIN D 25 HYDROXY 6. Family history of ischemic heart disease Z82.49 Above issues addressed with patient. Patient involved in shared decision making for management of medical issues. History and medications reviewed. Epic updated as needed Refills taken care of and meds adjusted as indicated after reviewed history, exam and labs. Health Maintenance reviewed. Updated record and/or ordered tests as recorded. Encouraged on efforts at healthy diet and regular exercise and adequate sleep. Needs to keep working on diet and exercise with lifestyle changes for effective weight loss as well as prevention of DM, and control of BP and lipids. Discussed statin guidelines. With her high HDL and improved LDL to 140's, plus no problems with smoking, HTN, or DM, her risk for CAD is still considered low with ASCVD risk calculating at <7.5% (threshhold for recommending statins). Continue efforts at healthy diet and regular exercise. Vitamin D level adequately replaced. Continue present management. Discussed sore throat is probably from GERD. No signs of infection noted. May increase H2 arnulfo. Consider other PPIs if that is not adequate. Further evaluation and treatment as indicated. Refer to GI as needed, The majority of the visit was spent counseling and/or coordinating care for the patient. Eoji-rg-xyim time was at least 20 minutes. Domonique Díaz MD CNOV Observed: 06/07/2018 Status: COMPLETED Source: [place] 10:40 AM [facility] Office Visit (INTMWS) PARIS BERGERON ([id number]) 1970 F Date Time Provider Department 06/07/18 10:40 AM DOMONIQUE DÍAZ INTMWS During your visit today, we recorded the following information about you: Pulse Respiration Blood pressure Weight 76/minute 20/minute 104/68 66.8 kg Domonique Díaz MD 06/24/2018 1:11 AM Signed Patient presents with: Recheck: Follow up SUBJECTIVE: Paris Bergeron is a 47 year old year old lady here today for 6 month follow up appointment for review of medical conditions. Continuous sore throat. Feels like pugh in throat Pain in left ear Occasional drainage. Benadryl as needed. Ranitidine working better than prilosec for GERD symptoms--burning pain in chest and to back with burning in throat plus bloating. Cannot drink Coke or eat chocolate. Still working on losing more weight. Doing well overall. 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 - Mammographic microcalcification - Mitral valve disorders(424.0) MVP - Other and unspecified hyperlipidemia Current Outpatient Prescriptions: metoprolol succinate ER (TOPROL XL) 50 mg 24 hr tablet Take 1 tablet by mouth once daily. Cholecalciferol, Vitamin D3, 2,000 unit cap Take 2 capsules by mouth once daily. No current facility-administered medications for this visit. OBJECTIVE: BP 104/68 Pulse 76 Resp 20 Wt 66.8 kg (147 lb 3.2 oz) BMI 29.23 kg/m? Patient is alert, oriented times 3, no apparent distress, affect is bright, reactive. Last 5 Encounter BP Readings: Date: BP: 06/07/2018 104/68 03/08/2018 120/72 12/06/2017 124/72 05/31/2017 110/62 05/13/2017 142/86 Last 5 Encounter Wt Readings: Date: Wt: 06/07/2018 66.8 kg (147 lb 3.2 oz) 03/08/2018 66.2 kg (146 lb) 12/06/2017 66.7 kg (147 lb) 05/31/2017 65.3 kg (144 lb) 05/13/2017 66.2 kg (146 lb) HEENT: noted posterior pharynx with what looks like grown back of throat; also has tonsils too. Heart: Regular rate, rhythm, no murmurs, gallops, rubs. Lungs: Clear to auscultation, bilaterally, breathing non labored. Ext: No cyanosis, clubbing, or edema. Component Latest Ref Rng AND Units 10/18/2015 11/25/2016 06/02/2018 Protein, Total 6.3 - 8.0 g/dL 7.0 Albumin 3.9 - 4.9 g/dL 4.1 Calcium 8.5 - 10.2 mg/dL 9.4 Bilirubin, Total 0.2 - 1.3 mg/dL 0.7 Alkaline Phosphatase 32 - 117 U/L 30 (L) AST 13 - 35 U/L 15 Glucose 74 - 99 mg/dL 84 BUN 7 - 21 mg/dL 17 Creatinine 0.58 - 0.96 mg/dL 0.72 Sodium 136 - 144 mmol/L 139 Potassium 3.7 - 5.1 mmol/L 4.0 Chloride 97 - 105 mmol/L 102 CO2 22 - 30 mmol/L 25 Anion Gap 9 - 18 mmol/L 12 ALT 7 - 38 U/L 8 eGFR- >60 eGFR-All Other Races . >60 Triglyceride <150 mg/dL 37 62 55 Cholesterol, Total <200 mg/dL 207 (H) 235 (H) 218 (H) HDL Cholesterol >39 mg/dL 60 59 61 VLDL Cholesterol <30 mg/dL 7 12 11 LDL Cholesterol <100 mg/dL 140 (H) 164 (H) 146 (H) Fasting Time hrs FASTING 14 10 TC:HDL Ratio <5.10 3.45 3.98 3.57 LDL:HDL Ratio <2.54 2.33 2.78 2.39 Non HDL Cholesterol <130 mg/dL 147 176 (H) 157 (H) TSH 0.400 - 5.500 uU/mL 1.460 Magnesium 1.7 - 2.3 mg/dL 2.0 Vitamin D 25 Hydroxy 31.0 - 80.0 ng/mL 36.6 ASSESSMENT AND PLAN: Encounter Diagnosis ICD-10-CM 1. Gastroesophageal reflux disease without esophagitis K21.9 2. Pure hypercholesterolemia E78.00 LIPID PANEL BASIC 3. Left ear pain H92.02 worse with swallowing; suspect eustachian tube dysfunction 4. Sore throat J02.9 5. Vitamin D deficiency E55.9 VITAMIN D 25 HYDROXY 6. Family history of ischemic heart disease Z82.49 Above issues addressed with patient. Patient involved in shared decision making for management of medical issues. History and medications reviewed. Epic updated as needed Refills taken care of and meds adjusted as indicated after reviewed history, exam and labs. Health Maintenance reviewed. Updated record and/or ordered tests as recorded. Encouraged on efforts at healthy diet and regular exercise and adequate sleep. Needs to keep working on diet and exercise with lifestyle changes for effective weight loss as well as prevention of DM, and control of BP and lipids. Discussed statin guidelines. With her high HDL and improved LDL to 140's, plus no problems with smoking, HTN, or DM, her risk for CAD is still considered low with ASCVD risk calculating at <7.5% (threshhold for recommending statins). Continue efforts at healthy diet and regular exercise. Vitamin D level adequately replaced. Continue present management. Discussed sore throat is probably from GERD. No signs of infection noted. May increase H2 arnulfo. Consider other PPIs if that is not adequate. Further evaluation and treatment as indicated. Refer to GI as needed, The majority of the visit was spent counseling and/or coordinating care for the patient. Sbux-ue-jisn time was at least 20 minutes. MD Domonique Ashford MD 06/07/2018 11:24 AM Signed May try Rain (plain) to see if helps with drainage. Okay to add nasal steroid (Flonase, Nasonex,Rhinocort,etc) if needed. Increase ranitidine 150 mg to twice daily to see if that resolves the reflux symptoms. Consider other PPI (like Prevacid, Aciphex,Protonix) if above not adequate for reflux symptoms. Referring Provider: DOMONIQUE DÍAZ [[id number]] Allergies As of Date: 06/07/2018 Noted Allergy Reaction LEVAQUIN (LEVOFLOXACIN) 06/24/2011 14 - Other: See Comments Comments: Numbness, palpitations ALEVE (NAPROXEN SODIUM) 05/18/2013 14 - Other: See Comments Comments: BP elevation CODEINE 10/20/2007 8 - GI Upset Comments: Heart pounding Date Reviewed: 06/07/2018 Reviewed by: Petrona Garcia LPN - Fully Assessed Reason for Visit: Recheck [92] Cmt: Follow up Primary Visit Diagnosis:Gastroesophageal reflux disease without esophagitis [K21.9] Other Visit Diagnoses:Pure hypercholesterolemia [E78.00] Left ear pain [H92.02] Comment:worse with swallowing; suspect eustachian tube dysfunction Sore throat [J02.9] Vitamin D deficiency [E55.9] Family history of ischemic heart disease [Z82.49] Order(s):sucralfate (CARAFATE) 1 gram tabletTake 1 tablet by mouth before meals and at bedtime.Disp: 56 tabletRfl: 1 rosuvastatin (CRESTOR) 10 mg tabletTake 1 tablet by mouth daily at bedtime. As directedDisp: 90 tabletRfl: 3 LIPID PANEL BASIC [SQLIPB] Order #: [id number] FUTURE VITAMIN D 25 HYDROXY [SQVITD] Order #: [id number] FUTURE Prescriptions as of 06/07/2018 Sig: METOPROLOL SUCCINATE ER 50 MG* Take 1 tablet by mouth once d* CHOLECALCIFEROL (VITAMIN D3) * Take 2 capsules by mouth once* SUCRALFATE 1 GRAM TABLET Take 1 tablet by mouth before* ROSUVASTATIN 10 MG TABLET Take 1 tablet by mouth daily * More... Problem List As Of Date 06/07/2018 Noted Resolved Palpitations [R00.2] INVALID FOR*10/14/2015 More... Lumbago [M54.5] INVALID FOR*03/16/2014 More... Dermatophytosis of nail [B35.1] INVALID FOR*06/16/2013 More... Overweight(278.02) [E66.3] INVALID FOR*10/14/2015 Other and unspecified hyperlipidemia [E78.5] INVALID FOR*10/14/2015 More... MVP (mitral valve prolapse) [I34.1] INVALID FOR* Cervicalgia [M54.2] INVALID FOR* Epigastric pain [R10.13] INVALID FOR*10/14/2015 Family history of ischemic heart disease [Z82.4*INVALID FOR* Dysuria [R30.0] INVALID FOR*10/14/2015 Bilateral flank pain [R10.9] INVALID FOR*10/14/2015 Vaginal discharge [N89.8] INVALID FOR*10/14/2015 History of myositis [Z87.39] INVALID FOR* Lumbago [M54.5] INVALID FOR* Hyperlipidemia [E78.5] INVALID FOR* Atypical chest pain [R07.89] INVALID FOR* Raynaud's phenomenon without gangrene [I73.00] INVALID FOR* Other instructions from your clinician: May try Rain (plain) to see if helps with drainage. Okay to add nasal steroid (Flonase, Nasonex,Rhinocort,etc) if needed. Increase ranitidine 150 mg to twice daily to see if that resolves the reflux symptoms. Consider other PPI (like Prevacid, Aciphex,Protonix) if above not adequate for reflux symptoms. Prescriptions ordered this encounter Disp Refills Start End SUCRALFATE 1 GRAM TABLET 56 t* 1 06/07/2018 Route: ORAL Sig: Take 1 tablet by mouth before meals and at bedtime. ROSUVASTATIN 10 MG TABLET 90 t* 3 06/07/2018 Route: ORAL Sig: Take 1 tablet by mouth daily at bedtime. As directed Disposition: Return in about 6 months (around 12/06/2018) for 6 months follow up, With labs prior. Follow-up and Disposition History Recorded Encounter Status:Closed by DOMONIQUE DÍAZ MD on 06/24/18 VITAMIN D 25 HYDROXY Collected: 06/02/2018 Status: F Source: [place] 8:51 AM [facility] REPOSITORY TYPE CODE TESTS RESULT OUT OF REFERENCE UNITS RANGE LAB VITD 31.0-80.0 ng/mL Vitamin D 25 36.6 Hydroxy Result Comment: Classification of 25 [place] Vitamin D status: Insufficiency/Moderate Deficiency: < or = 30 ng/mL Sufficiency/Optimal Levels: 31 to 80 ng/mL Toxicity: > 100 ng/mL Test performed by chemiluminescent immunoassay. Performed By: #### VITD #### [facility] [address] [place] [id number] LIPID PANEL, BASIC Collected: 06/02/2018 Status: F Source: [place] 8:51 AM [facility] REPOSITORY TYPE CODE TESTS RESULT OUT OF REFERENCE UNITS RANGE LAB CHOL <200 mg/dL Cholesterol High 218 Result Comment: <200 mg/dL, Desirable 200-239 mg/dL, Borderline high >239 mg/dL, High LAB TRIGLY <150 mg/dL Triglyceride 55 Result Comment: <150 mg/dL, Normal 150-199 mg/dL, Borderline high 200-499 mg/dL, High >499 mg/dL, Very high LAB HDL >39 mg/dL HDL-Cholesterol 61 Result Comment: 40-59 mg/dL, Acceptable >59 mg/dL, High: Negative risk factor for coronary heart disease <40 mg/dL, Low: Positive risk factor for coronary heart disease LAB LDL <100 mg/dL LDL-Cholesterol High 146 Result Comment: <100 mg/dL, Optimal 100-129 mg/dL, Near optimal/above optimal 130-159 mg/dL, Borderline high 160-189 mg/dL, High >189 mg/dL, Very high Secondary prevention optimal LDL Cholesterol levels are recommended to be < 70 mg/dL LAB NONHDL <130 mg/dL Non HDL High Cholesterol 157 Result Comment: <130 mg/dL, Optimal 130-159 mg/dL, Near optimal/above optimal 160-189 mg/dL, Borderline high 190-219 mg/dL, High >219 mg/dL, Very high Secondary prevention optimal non HDL Cholesterol levels are recommended to be < 100 mg/dL LAB FT hrs Fasting Time 10 LAB VLDL <30 mg/dL VLDL Cholesterol 11 LAB TCHDL <5.10 TC:HDL Ratio 3.57 LAB LDLHDL <2.54 LDL:HDL Ratio 2.39 Result Comment: Reference: 1. National Cholesterol Education Program ATP III Guideline At-A-Glance Quick Desk Reference: National Heart, Lung, and Blood [place]. National Institutes of Health. 2001: NIH Publication No. 01-3305. 2. An International Atherosclerosis Society position paper: global recommendations for the management of dyslipidemia: executive summary, Atherosclerosis. 2014: 232(2):410-413. Performed By: #### LIPB #### [facility] [address] [place] [id number] CNOV Observed: 03/08/2018 Status: COMPLETED Source: [place] 1:40 PM [facility] Office Visit (INTMWS) PARIS BERGERON ([id number]) 1970 F Date Time Provider Department 03/08/18 1:40 PM MARYAM EMMANUEL (JABARI) INTMWS During your visit today, we recorded the following information about you: Temperature Pulse Respiration Blood pressure 98.5 degrees 80/minute 16/minute 120/72 Weight 66.2 kg Maryam Emmanuel APRN.CNS 03/08/2018 2:07 PM Signed OUTPATIENT VISIT DATE March 08, 2018 OUTPATIENT VISIT TYPE ESTABLISHED PRIMARY CARE PHYSICIAN: Domonique Díaz MD CHIEF COMPLAINT: Patient presents with: Sore Throat: growth on back of throat History of Present Illness: Paris Bergeron is a 47 year old female who was last seen 11/2017by Domonique Díaz MD. She has been seen in the past for ACTIVE PROBLEM LIST Mvp (Mitral Valve Prolapse) Cervicalgia Family History of Ischemic Heart Disease History of Myositis Lumbago Hyperlipidemia Atypical Chest Pain Raynaud's Phenomenon Without Gangrene HPI Paris Bergeron is a 47 year old female who presents with complaint of re-current sore throat since December. She reports 3 episodes of upper respiratory infection since December. Back in December she noted a small bump at the back of her throat that has persisted to now. No difficulty swallowing. No change in appearance since this appeared. She reports drinking from a [employer] feature at a [employer] in December. Currently without fever, no current sore throat, no current sick contacts. She has noted nasal drainage and some pain in her ears at times. She reports no productive cough currently. No current heartburn or reflux type symptoms. No globus sensation. She does take Benadryl at night to help with sleep. She notes an itchy type sensation in the palate at times this summer. No report of sneezing or watery eyes. The ROS is otherwise negative. The patient's pmh, medications, allergies, and past visits are reviewed. PHYSICAL EXAM: BP 120/72 (BP Site: Right Arm, BP Position: Sitting, BP Cuff Size: Regular Adult) Pulse 80 Temp 36.9 ?C (98.5 ?F) Resp 16 Wt 66.2 kg (146 lb) BMI 28.99 kg/m? General appearance: alert, cooperative, pleasant Head: Normocephalic Eyes: conjunctiva/corneas normal Ears: R TM - clear with good landmarks, L TM - clear with good landmarks Nose: mucosa erythematous and swollen Oropharynx: moist without lesions Neck: supple and small, benign anterior cervical nodes bilaterally Heart: regular rate and rhythm, without murmur Lungs: clear to auscultation, without rales or wheeze, good air exchange No recent hospital or ED visits. No new medical problems or medications. Able to obtain medications. No problems with taking medications or note side effects. 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 - Mammographic microcalcification - Mitral valve disorders(424.0) MVP - Other and unspecified hyperlipidemia PAST SURGICAL HISTORY Procedure Laterality Date - DELIVERY ONLY , low cervical - EGD W/O OR W/BRUSH/WASH 06/15/2013 EGD - PAST SURGICAL HISTORY OF urethra stretching age 2 - PAST SURGICAL HISTORY OF DANDC - PAST SURGICAL HISTORY OF wisdom teeth - REPAIR UMBILICAL JAMMIE,<5Y/O,REDUC 2001 Hernia repair, umbilical <5yr FAMILY HISTORY Problem Relation Age of Onset - Hypertension Mother - Diabetes Mother - Stroke Mother carotid disease - Heart Father [place] - Hypertension Maternal Grandmother - Heart Maternal Grandfather - Diabetes Maternal Grandfather - Breast Cancer Paternal Grandmother - Heart Brother [place] - Hypertension Brother Social History Substance Use Topics - Smoking status: Never Smoker - Smokeless tobacco: Never Used - Alcohol use Yes Comment: 1-2 wine or beer a week ALLERGIES: ALLERGIES Allergen Reactions - Levaquin [Levofloxa* Other: See Comments Numbness, palpitations - Aleve [Naproxen Sod* Other: See Comments BP elevation - Codeine GI Upset Heart pounding MEDICATIONS Cholecalciferol, Vitamin D3, 2,000 unit cap Take 2 capsules by mouth once daily. metoprolol succinate ER (TOPROL XL) 50 mg 24 hr tablet Take 1 tablet by mouth once daily. REVIEW OF SYSTEMS: GENERAL: Negative for: Weight loss or gain, Fever or Chills, Weakness and Sleep difficulties. Reviewed chart, outside records, tests I personally interviewed, confirmed and edited the above information if obtained by others. TESTING: Glucose (mg/dL) Date Value 11/25/2016 84 Potassium (mmol/L) Date Value 11/25/2016 4.0 Sodium (mmol/L) Date Value 11/25/2016 139 Chloride (mmol/L) Date Value 11/25/2016 102 CO2 (mmol/L) Date Value 11/25/2016 25 Creatinine (mg/dL) Date Value 11/25/2016 0.72 BUN (mg/dL) Date Value 11/25/2016 17 Anion Gap (mmol/L) Date Value 11/25/2016 12 Calcium (mg/dL) Date Value 11/25/2016 9.4 Glucose (mg/dL) Date Value 11/25/2016 84 Potassium (mmol/L) Date Value 11/25/2016 4.0 Sodium (mmol/L) Date Value 11/25/2016 139 Chloride (mmol/L) Date Value 11/25/2016 102 CO2 (mmol/L) Date Value 11/25/2016 25 Creatinine (mg/dL) Date Value 11/25/2016 0.72 BUN (mg/dL) Date Value 11/25/2016 17 Anion Gap (mmol/L) Date Value 11/25/2016 12 Calcium (mg/dL) Date Value 11/25/2016 9.4 Protein, Total (g/dL) Date Value 11/25/2016 7.0 Albumin (g/dL) Date Value 11/25/2016 4.1 Bilirubin, Total (mg/dL) Date Value 11/25/2016 0.7 Alkaline Phosphatase (U/L) Date Value 11/25/2016 30 AST (U/L) Date Value 11/25/2016 15 ALT (U/L) Date Value 11/25/2016 8 Hemoglobin (g/dL) Date Value 11/25/2016 12.9 Hematocrit (%) Date Value 11/25/2016 39.6 WBC (k/uL) Date Value 11/25/2016 5.17 Cholesterol, Total (mg/dL) Date Value 11/25/2016 235 HDL Cholesterol (mg/dL) Date Value 11/25/2016 59 LDL Cholesterol (mg/dL) Date Value 11/25/2016 164 Triglyceride (mg/dL) Date Value 11/25/2016 62 No results found for: HBA1C Ejection Fraction: No results found IMPRESSION: Ms. Bergeron is a 47 year old woman presents for raised spot in back of throat, recurrent URI since December. After my examination and review of data, I make the following recommendations. PLAN AND RECOMMENDATIONS: 1. Allergic rhinitis, unspecified seasonality, unspecified trigger - ICD9: 477.9, ICD10: J30.9 (primary diagnosis) 2. Lesion of throat - ICD9: 478.20, ICD10: J39.2 Reported symptoms most consistent with allergic rhinitis. Recommend taking an antihistamine such as cetirizine or loratadine daily for a while to see if this helps Asked her to continue to keep an eye on lesion in her throat and let us know if increasing in size, change in color, difficulty swallowing or other concerns, can recheck and send to gastro or ENT as needed Advised to go to ER if develops chest pain, shortness of breath, or severe worsening of symptoms. Discussed risks, benefits, alternatives, and potential side effects of medications. Ms. Bergeron expressed understanding and agreed with the plan. Maryam Emmanuel APRN.JABARI Emmanuel APRN.CNS 03/08/2018 1:57 PM Signed Try loratadine or cetrizine once daily Referring Provider: SELF [200] Allergies As of Date: 03/08/2018 Noted Allergy Reaction LEVAQUIN (LEVOFLOXACIN) 06/24/2011 14 - Other: See Comments Comments: Numbness, palpitations ALEVE (NAPROXEN SODIUM) 05/18/2013 14 - Other: See Comments Comments: BP elevation CODEINE 10/20/2007 8 - GI Upset Comments: Heart pounding Date Reviewed: 03/08/2018 Reviewed by: Darby Luis LPN - Fully Assessed Reason for Visit: Sore Throat [200] Cmt: growth on back of throat Primary Visit Diagnosis:Allergic rhinitis, unspecified seasonality, unspecified trigger [J30.9] Other Visit Diagnosis:Lesion of throat [J39.2] Prescriptions as of 03/08/2018 Sig: CHOLECALCIFEROL (VITAMIN D3) * Take 2 capsules by mouth once* METOPROLOL SUCCINATE ER 50 MG* Take 1 tablet by mouth once d* More... Problem List As Of Date 03/08/2018 Noted Resolved Palpitations [R00.2] INVALID FOR*10/14/2015 More... Lumbago [M54.5] INVALID FOR*03/16/2014 More... Dermatophytosis of nail [B35.1] INVALID FOR*06/16/2013 More... Overweight(278.02) [E66.3] INVALID FOR*10/14/2015 Other and unspecified hyperlipidemia [E78.5] INVALID FOR*10/14/2015 More... MVP (mitral valve prolapse) [I34.1] INVALID FOR* Cervicalgia [M54.2] INVALID FOR* Epigastric pain [R10.13] INVALID FOR*10/14/2015 Family history of ischemic heart disease [Z82.4*INVALID FOR* Dysuria [R30.0] INVALID FOR*10/14/2015 Bilateral flank pain [R10.9] INVALID FOR*10/14/2015 Vaginal discharge [N89.8] INVALID FOR*10/14/2015 History of myositis [Z87.39] INVALID FOR* Lumbago [M54.5] INVALID FOR* Hyperlipidemia [E78.5] INVALID FOR* Atypical chest pain [R07.89] INVALID FOR* Raynaud's phenomenon without gangrene [I73.00] INVALID FOR* Other instructions from your clinician: Try loratadine or cetrizine once daily Encounter Status:Closed by MARYAM VILLA on 03/08/18 PROGRESS Observed: 03/08/2018 Status: COMPLETED Source: [place] 1:37 PM [facility] REPOSITORY [facility] ID: [id number] Author: Maryam Emmanuel (Cns) Service: (none) Author Type: Nurse Specialist Type: Progress Notes Filed: 03/08/2018 2:07 PM Note Text: OUTPATIENT VISIT DATE March 08, 2018 OUTPATIENT VISIT TYPE ESTABLISHED PRIMARY CARE PHYSICIAN: Domonique Díaz MD CHIEF COMPLAINT: Patient presents with: Sore Throat: growth on back of throat History of Present Illness: Paris Bergeron is a 47 year old female who was last seen 11/2017by Domonique Díaz MD. She has been seen in the past for ACTIVE PROBLEM LIST Mvp (Mitral Valve Prolapse) Cervicalgia Family History of Ischemic Heart Disease History of Myositis Lumbago Hyperlipidemia Atypical Chest Pain Raynaud's Phenomenon Without Gangrene HPI Paris Bergeron is a 47 year old female who presents with complaint of re-current sore throat since December. She reports 3 episodes of upper respiratory infection since December. Back in December she noted a small bump at the back of her throat that has persisted to now. No difficulty swallowing. No change in appearance since this appeared. She reports drinking from a [employer] at a [employer] in December. Currently without fever, no current sore throat, no current sick contacts. She has noted nasal drainage and some pain in her ears at times. She reports no productive cough currently. No current heartburn or reflux type symptoms. No globus sensation. She does take Benadryl at night to help with sleep. She notes an itchy type sensation in the palate at times this summer. No report of sneezing or watery eyes. The ROS is otherwise negative. The patient's pmh, medications, allergies, and past visits are reviewed. PHYSICAL EXAM: BP 120/72 (BP Site: Right Arm, BP Position: Sitting, BP Cuff Size: Regular Adult) Pulse 80 Temp 36.9 ?C (98.5 ?F) Resp 16 Wt 66.2 kg (146 lb) BMI 28.99 kg/m? General appearance: alert, cooperative, pleasant Head: Normocephalic Eyes: conjunctiva/corneas normal Ears: R TM - clear with good landmarks, L TM - clear with good landmarks Nose: mucosa erythematous and swollen Oropharynx: moist without lesions Neck: supple and small, benign anterior cervical nodes bilaterally Heart: regular rate and rhythm, without murmur Lungs: clear to auscultation, without rales or wheeze, good air exchange No recent hospital or ED visits. No new medical problems or medications. Able to obtain medications. No problems with taking medications or note side effects. 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 - Mammographic microcalcification - Mitral valve disorders(424.0) MVP - Other and unspecified hyperlipidemia PAST SURGICAL HISTORY Procedure Laterality Date - DELIVERY ONLY , low cervical - EGD W/O OR W/BRUSH/WASH 06/15/2013 EGD - PAST SURGICAL HISTORY OF urethra stretching age 2 - PAST SURGICAL HISTORY OF DANDC - PAST SURGICAL HISTORY OF wisdom teeth - REPAIR UMBILICAL JAMMIE,<5Y/O,REDUC 2001 Hernia repair, umbilical <5yr FAMILY HISTORY Problem Relation Age of Onset - Hypertension Mother - Diabetes Mother - Stroke Mother carotid disease - Heart Father [place] - Hypertension Maternal Grandmother - Heart Maternal Grandfather - Diabetes Maternal Grandfather - Breast Cancer Paternal Grandmother - Heart Brother [place] - Hypertension Brother Social History Substance Use Topics - Smoking status: Never Smoker - Smokeless tobacco: Never Used - Alcohol use Yes Comment: 1-2 wine or beer a week ALLERGIES: ALLERGIES Allergen Reactions - Levaquin [Levofloxa* Other: See Comments Numbness, palpitations - Aleve [Naproxen Sod* Other: See Comments BP elevation - Codeine GI Upset Heart pounding MEDICATIONS Cholecalciferol, Vitamin D3, 2,000 unit cap Take 2 capsules by mouth once daily. metoprolol succinate ER (TOPROL XL) 50 mg 24 hr tablet Take 1 tablet by mouth once daily. REVIEW OF SYSTEMS: GENERAL: Negative for: Weight loss or gain, Fever or Chills, Weakness and Sleep difficulties. Reviewed chart, outside records, tests I personally interviewed, confirmed and edited the above information if obtained by others. TESTING: Glucose (mg/dL) Date Value 11/25/2016 84 Potassium (mmol/L) Date Value 11/25/2016 4.0 Sodium (mmol/L) Date Value 11/25/2016 139 Chloride (mmol/L) Date Value 11/25/2016 102 CO2 (mmol/L) Date Value 11/25/2016 25 Creatinine (mg/dL) Date Value 11/25/2016 0.72 BUN (mg/dL) Date Value 11/25/2016 17 Anion Gap (mmol/L) Date Value 11/25/2016 12 Calcium (mg/dL) Date Value 11/25/2016 9.4 Glucose (mg/dL) Date Value 11/25/2016 84 Potassium (mmol/L) Date Value 11/25/2016 4.0 Sodium (mmol/L) Date Value 11/25/2016 139 Chloride (mmol/L) Date Value 11/25/2016 102 CO2 (mmol/L) Date Value 11/25/2016 25 Creatinine (mg/dL) Date Value 11/25/2016 0.72 BUN (mg/dL) Date Value 11/25/2016 17 Anion Gap (mmol/L) Date Value 11/25/2016 12 Calcium (mg/dL) Date Value 11/25/2016 9.4 Protein, Total (g/dL) Date Value 11/25/2016 7.0 Albumin (g/dL) Date Value 11/25/2016 4.1 Bilirubin, Total (mg/dL) Date Value 11/25/2016 0.7 Alkaline Phosphatase (U/L) Date Value 11/25/2016 30 AST (U/L) Date Value 11/25/2016 15 ALT (U/L) Date Value 11/25/2016 8 Hemoglobin (g/dL) Date Value 11/25/2016 12.9 Hematocrit (%) Date Value 11/25/2016 39.6 WBC (k/uL) Date Value 11/25/2016 5.17 Cholesterol, Total (mg/dL) Date Value 11/25/2016 235 HDL Cholesterol (mg/dL) Date Value 11/25/2016 59 LDL Cholesterol (mg/dL) Date Value 11/25/2016 164 Triglyceride (mg/dL) Date Value 11/25/2016 62 No results found for: HBA1C Ejection Fraction: No results found IMPRESSION: Ms. Bergeron is a 47 year old woman presents for raised spot in back of throat, recurrent URI since December. After my examination and review of data, I make the following recommendations. PLAN AND RECOMMENDATIONS: 1. Allergic rhinitis, unspecified seasonality, unspecified trigger - ICD9: 477.9, ICD10: J30.9 (primary diagnosis) 2. Lesion of throat - ICD9: 478.20, ICD10: J39.2 Reported symptoms most consistent with allergic rhinitis. Recommend taking an antihistamine such as cetirizine or loratadine daily for a while to see if this helps Asked her to continue to keep an eye on lesion in her throat and let us know if increasing in size, change in color, difficulty swallowing or other concerns, can recheck and send to gastro or ENT as needed Advised to go to ER if develops chest pain, shortness of breath, or severe worsening of symptoms. Discussed risks, benefits, alternatives, and potential side effects of medications. Ms. Bergeron expressed understanding and agreed with the plan. Maryam Emmanuel APRN.[employer]ER PROGRESS Observed: 12/06/2017 Status: COMPLETED Source: [place] 8:42 AM [facility] [place] REPOSITORY O ID: [id number] Author: Domonique Díaz Service: (none) Author Type: Physician Type: Progress Notes Filed: 12/13/2017 12:29 AM Note Text: Patient presents with: 6 Month Exam SUBJECTIVE: Paris Bergeron is a 47 year old year old lady here today for 6 month follow up appointment for review of medical conditions. Dr. Mcqueen in [place] this month to follow up on Operations Tech ([facility]) evaluation--not a surgical issue. Noted Vitamin D was improving. Pain going down legs and joint pain. 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 - Mammographic microcalcification - Mitral valve disorders(424.0) MVP - Other and unspecified hyperlipidemia Current Outpatient Prescriptions: Cholecalciferol, Vitamin D3, 2,000 unit cap Take 2 capsules by mouth once daily. metoprolol succinate ER (TOPROL XL) 50 mg 24 hr tablet Take 1 tablet by mouth once daily. No current facility-administered medications for this visit. OBJECTIVE: BP 124/72 (BP Site: Left Arm, BP Position: Sitting, BP Cuff Size: Regular Adult) Pulse 76 Resp 12 Wt 66.7 kg (147 lb) BMI 29.19 kg/m2 Patient is alert, oriented times 3, no apparent distress, affect is bright, reactive. Last 5 Encounter BP Readings: Date: BP: 12/06/2017 124/72 05/31/2017 110/62 05/13/2017 142/86 03/26/2017 110/84 01/14/2017 102/62 Last 5 Encounter Wt Readings: Date: Wt: 12/06/2017 66.7 kg (147 lb) 05/31/2017 65.3 kg (144 lb) 05/13/2017 66.2 kg (146 lb) 03/26/2017 66.2 kg (146 lb) 01/14/2017 64 kg (141 lb) Heart: Regular rate, rhythm, no murmurs, gallops, rubs. Lungs: Clear to auscultation, bilaterally, breathing non labored. Ext: No cyanosis, clubbing, or edema. ASSESSMENT AND PLAN: Encounter Diagnosis ICD-10-CM 1. Elevated LDL cholesterol level E78.00 LIPID PANEL BASIC 2. Pain in both lower extremities M79.604 M79.605 3. Vitamin D deficiency E55.9 Cholecalciferol, Vitamin D3, 2,000 unit cap 4. Cervicalgia M54.2 5. Chronic low back pain, unspecified back pain laterality, with sciatica presence unspecified M54.5 G89.29 Above issues addressed with patient. Patient involved in shared decision making for management of her medical issues. History and medications reviewed. Epic updated as needed Refills taken care of and meds adjusted as indicated after reviewed history, exam and labs. Health Maintenance reviewed. Updated record and/or ordered tests as recorded. Encouraged on efforts at healthy diet and regular exercise and adequate sleep. At this point, not surgical candidate for back or neck issues. Conservative management for now. Further evaluation and treatment as indicated. Further evaluation and treatment as indicated. The majority of the visit was spent counseling and/or coordinating care for the patient. [id number] time was at least 25 minutes. Domonique Díaz MD CNOV Observed: 12/06/2017 Status: COMPLETED Source: [place] 8:40 AM [facility] Office Visit (INTM[facility]) PARIS BERGERON ([id number]) 1970 F [facility] Date Time Provider Department 12/06/17 8:40 AM DOMONIQUE DÍAZ INTMWS During your visit today, we recorded the following information about you: Pulse Respiration Blood pressure Weight 76/minute 12/minute 124/72 66.7 kg Domonique Díaz MD 12/13/2017 12:29 AM Signed Patient presents with: 6 Month Exam SUBJECTIVE: Paris Bergeron is a 47 year old year old lady here today for 6 month follow up appointment for review of medical conditions. Dr. Mcqueen in [place] this month to follow up on Operations Tech ([facility]) evaluation--not a surgical issue. Noted Vitamin D was improving. Pain going down legs and joint pain. 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 - Mammographic microcalcification - Mitral valve disorders(424.0) MVP - Other and unspecified hyperlipidemia Current Outpatient Prescriptions: Cholecalciferol, Vitamin D3, 2,000 unit cap Take 2 capsules by mouth once daily. metoprolol succinate ER (TOPROL XL) 50 mg 24 hr tablet Take 1 tablet by mouth once daily. No current facility-administered medications for this visit. OBJECTIVE: BP 124/72 (BP Site: Left Arm, BP Position: Sitting, BP Cuff Size: Regular Adult) Pulse 76 Resp 12 Wt 66.7 kg (147 lb) BMI 29.19 kg/m2 Patient is alert, oriented times 3, no apparent distress, affect is bright, reactive. Last 5 Encounter BP Readings: Date: BP: 12/06/2017 124/72 05/31/2017 110/62 05/13/2017 142/86 03/26/2017 110/84 01/14/2017 102/62 Last 5 Encounter Wt Readings: Date: Wt: 12/06/2017 66.7 kg (147 lb) 05/31/2017 65.3 kg (144 lb) 05/13/2017 66.2 kg (146 lb) 03/26/2017 66.2 kg (146 lb) 01/14/2017 64 kg (141 lb) Heart: Regular rate, rhythm, no murmurs, gallops, rubs. Lungs: Clear to auscultation, bilaterally, breathing non labored. Ext: No cyanosis, clubbing, or edema. ASSESSMENT AND PLAN: Encounter Diagnosis ICD-10-CM 1. Elevated LDL cholesterol level E78.00 LIPID PANEL BASIC 2. Pain in both lower extremities M79.604 M79.605 3. Vitamin D deficiency E55.9 Cholecalciferol, Vitamin D3, 2,000 unit cap 4. Cervicalgia M54.2 5. Chronic low back pain, unspecified back pain laterality, with sciatica presence unspecified M54.5 G89.29 Above issues addressed with patient. Patient involved in shared decision making for management of her medical issues. History and medications reviewed. Epic updated as needed Refills taken care of and meds adjusted as indicated after reviewed history, exam and labs. Health Maintenance reviewed. Updated record and/or ordered tests as recorded. Encouraged on efforts at healthy diet and regular exercise and adequate sleep. At this point, not surgical candidate for back or neck issues. Conservative management for now. Further evaluation and treatment as indicated. Further evaluation and treatment as indicated. The majority of the visit was spent counseling and/or coordinating care for the patient. [id number] time was at least 25 minutes. Domonique Díaz MD Referring Provider: SELF [200] Allergies As of Date: 12/06/2017 Noted Allergy Reaction LEVAQUIN (LEVOFLOXACIN) 06/24/2011 14 - Other: See Comments Comments: Numbness, palpitations ALEVE (NAPROXEN SODIUM) 05/18/2013 14 - Other: See Comments Comments: BP elevation CODEINE 10/20/2007 8 - GI Upset Comments: Heart pounding Date Reviewed: 12/06/2017 Reviewed by: Howard Dawkins LPN - Fully Assessed Reason for Visit: 6 Month Exam [189] Primary Visit Diagnosis:Elevated LDL cholesterol level [E78.00] Other Visit Diagnoses:Pain in both lower extremities [M79.604, M79.605] Vitamin D deficiency [E55.9] Cervicalgia [M54.2] Chronic low back pain, unspecified back pain laterality, with sciatica presence unspecified [M54.5, G89.29] Visit for screening mammogram [Z12.31] Order(s):LIPID PANEL BASIC [SQLIPB] Order #: [id number] FUTURE Cholecalciferol, Vitamin D3, 2,000 unit capTake 2 capsules by mouth once daily.Disp: Rfl: DESTINEE SCREENING [[id number]] Order #: [id number] FUTURE Prescriptions as of 12/06/2017 Sig: CHOLECALCIFEROL (VITAMIN D3) * Take 2 capsules by mouth once* METOPROLOL SUCCINATE ER 50 MG* Take 1 tablet by mouth once d* More... Problem List As Of Date 12/06/2017 Noted Resolved Palpitations [R00.2] INVALID FOR*10/14/2015 More... Lumbago [M54.5] INVALID FOR*03/16/2014 More... Dermatophytosis of nail [B35.1] INVALID FOR*06/16/2013 More... Overweight(278.02) [E66.3] INVALID FOR*10/14/2015 Other and unspecified hyperlipidemia [E78.5] INVALID FOR*10/14/2015 More... MVP (mitral valve prolapse) [I34.1] INVALID FOR* Cervicalgia [M54.2] INVALID FOR* Epigastric pain [R10.13] INVALID FOR*10/14/2015 Family history of ischemic heart disease [Z82.4*INVALID FOR* Dysuria [R30.0] INVALID FOR*10/14/2015 Bilateral flank pain [R10.9] INVALID FOR*10/14/2015 Vaginal discharge [N89.8] INVALID FOR*10/14/2015 History of myositis [Z87.39] INVALID FOR* Lumbago [M54.5] INVALID FOR* Hyperlipidemia [E78.5] INVALID FOR* Atypical chest pain [R07.89] INVALID FOR* Raynaud's phenomenon without gangrene [I73.00] INVALID FOR* Prescriptions ordered this encounter Disp Refills Start End CHOLECALCIFEROL (VITAMIN D3) 2,000 U* 12/06/2017 Class: OTC Route: ORAL Sig: Take 2 capsules by mouth once daily. Medications Discontinued During This Encounter Cholecalciferol, Vitamin D3, 2,000 u* 05/31/2017 12/06/2017 Class: OTC Route: ORAL Sig: Take 1 tablet by mouth once daily. Disc: Reason for discontinue is not on file. Disposition: Return in about 6 months (around 06/07/2018) for 6 months follow up. Follow-up and Disposition History Recorded Encounter Status:Closed by DOMONIQUE DÍAZ MD on 12/13/17 ANALITOUTREA Observed: 11/23/2017 Status: COMPLETED Source: [place] 12:00 AM [facility] Patient Outreach (INTMWH) PARIS BERGERON ([id number]) 1970 F Date Time Provider Department 11/23/17 DOMONIQUE DÍAZ ON LICENSE OF [facility] During your visit today, we recorded the following information about you: Allergies As of Date: 11/23/2017 Noted Allergy Reaction LEVAQUIN (LEVOFLOXACIN) 06/24/2011 14 - Other: See Comments Comments: Numbness, palpitations ALEVE (NAPROXEN SODIUM) 05/18/2013 14 - Other: See Comments Comments: BP elevation CODEINE 10/20/2007 8 - GI Upset Comments: Heart pounding Date Reviewed: 05/31/2017 Reviewed by: Scot Mares - Fully Assessed Visit Diagnosis:Medication management [Z79.899] Order(s):LIPID PANEL BASIC [SQLIPB] Order #: [id number] FUTURE Prescriptions as of 11/23/2017 Sig: X CHOLECALCIFEROL (VITAMIN D3) * Take 1 tablet by mouth once d* X METOPROLOL SUCCINATE ER 50 MG* Take 1 tablet by mouth once d* More... Problem List As Of Date 11/23/2017 Noted Resolved Palpitations [R00.2] INVALID FOR*10/14/2015 More... Lumbago [M54.5] INVALID FOR*03/16/2014 More... Dermatophytosis of nail [B35.1] INVALID FOR*06/16/2013 More... Overweight(278.02) [E66.3] INVALID FOR*10/14/2015 Other and unspecified hyperlipidemia [E78.5] INVALID FOR*10/14/2015 More... MVP (mitral valve prolapse) [I34.1] INVALID FOR* Cervicalgia [M54.2] INVALID FOR* Epigastric pain [R10.13] INVALID FOR*10/14/2015 Family history of ischemic heart disease [Z82.4*INVALID FOR* Dysuria [R30.0] INVALID FOR*10/14/2015 Bilateral flank pain [R10.9] INVALID FOR*10/14/2015 Vaginal discharge [N89.8] INVALID FOR*10/14/2015 History of myositis [Z87.39] INVALID FOR* Lumbago [M54.5] INVALID FOR* Hyperlipidemia [E78.5] INVALID FOR* Atypical chest pain [R07.89] INVALID FOR* Raynaud's phenomenon without gangrene [I73.00] INVALID FOR* Encounter Status:Closed by EPIC, PRODUSER on 06/10/18 SPINE LUMBAR Observed: 10/28/2017 Status: F Source: [place]ETHANY (ROUTINE) 4:20 PM [facility] REPOSITORY [facility] Imaging Services [address] [place] [address] Spine Lumbar (Routine) MR#: [id number] Acct: [id number] Name: PARIS BERGERON Rep #: [id number] : 1970 F 47 From: Dayana Ramirez MD PCP: Domonique Díaz MD Status: REG CLI Study: Spine Lumbar (Routine) Date of Exam: 10/28/17 Exam# [id number] Ordering Dr: Sen Mcqueen STUDY: MRI LUMBAR SPINE WITHOUT CONTRAST REASON FOR EXAM: Female, 47 years old. Back and bilateral leg pain. TECHNIQUE: Standardized fat and water weighted pulse sequences were obtained in the sagittal and axial planes. COMPARISON: Radiographs of the lumbar spine dated August 20, 2007. FINDINGS: There is a focus of abnormal signal within the inferior aspect of the T11 vertebral body. This is bright on the T1-weighted images and dark on the T2-weighted images. T12-L1: Normal endplates. Normal disc height, signal and morphology. Normal bilateral facet joints. Normal central canal and bilateral lateral recesses. Normal bilateral intervertebral neural foramina. Normal lumbar lordosis. There is no substantial scoliosis. Normal conus medullaris that terminates at the T12-L1. There appears to be a lipoma of the filum extending from L1-L2 to L3. L1-2: Normal endplates. Normal disc height, signal and morphology. Normal bilateral facet joints. Normal central canal and bilateral lateral recesses. Normal bilateral intervertebral neural foramina. L2-3: Normal endplates. Normal disc height, signal and morphology. Normal bilateral facet joints. Normal central canal and bilateral lateral recesses. Normal bilateral intervertebral neural foramina. L3-4: Normal endplates. Normal disc height, signal and morphology. Normal bilateral facet joints. Normal central canal and bilateral lateral recesses. Normal bilateral intervertebral neural foramina. L4-5: There is mild annular disk bulge and osteophyte complex. There is mild degenerative arthropathy of the facet joints. Bilateral neuroforamina are narrowed without MR evidence for nerve impingement. There is no significant central canal stenosis. L5-S1: There is a broad left central foraminal disc protrusion with possible small annular tear. There is questionable impingement of the left S1 nerve root at the lateral recess. Neural foramina are mildly narrowed without evidence for nerve impingement at the neural foramina. No significant central acquired canal stenosis. Normal visualized sacral ala. Normal visualized paraspinous soft tissue structures. MRI/Spine Lumbar (Routine) IMPRESSION: 1. 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 2. Lipoma of the filum. Electronically Signed: Dayana Ramirez MD at 0:00 EST , Service support , CC: SEN MCQUEEN; Domonique Díaz MD Machine Fastener: Signed ALLERGIES ALLERGIES DATE TYPE / CODE NAME / CODE REACTION SEVERITY SOURCE 08/15/2018 Drug codeine/[id number]( Vomiting Unknown [place] Allergy/416 RXNORM) [facility] [id number]([facility] ED CT) Repository 08/15/2018 Drug levofloxacin/[id number] Other Unknown [place] Allergy/416 6299(RXNORM) [facility] [id number]([facility] ED CT) Repository 05/18/2013 DRUG NAPROXEN SODIUM OTHER: SEE C [address] [id number](SNOM Repository ED CT) 06/24/2011 DRUG LEVOFLOXACIN OTHER: SEE C High [address] 450706(SNOM Repository ED CT) 10/20/2007 DRUG CODEINE GI UPSET [address] [id number](SNOM Repository ED CT) ENCOUNTERS ENCOUNTERS ADMIT/DISCHARGE ACCOUNT ADMITTING ENCOUNTER LOCATION SOURCE NUMBER CLASS 08/24/2018/08/25/20 [id number] Ambulatory [address] [place] Repository 08/16/2018/08/17/20 [id number] Ambulatory [address] [place] Repository 08/15/2018/08/15/20 [id number] Emergency [address] ing:ED Repository 06/07/2018/06/27/20 [id number] Ambulatory [address] [place] Repository 06/02/2018/07/06/20 [id number] Ambulatory [address] [place] Repository 03/08/2018/03/09/20 [id number] Ambulatory [address] [place] Repository 12/06/2017/12/15/19 [id number] Ambulatory [address] [place] Repository 10/28/2017 [id number] Ambulatory General acute hospital ing:MRI Repository PAYERS PAYERS ENCOUNTER GUARANTOR PAYER SUBSCRIBER SOURCE 08/15/2018 Ollie Kate Primary Ollie Sims [id number] Insurance:MEDICAL [place]manDOB: [facility] [id number] Number: Repository [id number]: [phone] [id number] [phone] (HP) Date:4911-44-67[address] [address]FY: 08/15/2018 Secondary NOT GIVENUNK [place] Insurance:SELF PAY [facility] Number: Effective Repository Date:2018-08-15 10/28/2017 Ollie Love Primary Ollie Sims [id number] Insurance:CARESOURCE He[place]manDOB: [facility] 3472[place] Number: Repository [id number]: [phone] [id number] [phone] () Date:2058-15-16[address] [address]YV: 10/28/2017 Secondary NOT GIVENUNK [place] Insurance:SELF PAY [facility] Number: Effective Repository Date:2017-10-26
== END 2018-08-15 06:08 | disposition home or self-care (01) ==
PROVIDERS: Emergency Provider Emergency Medicine; Family Provider Internal Medicine; PCP Internal Medicine
DX: R07.9 Chest pain, unspecified (principal); R10.13 Epigastric pain; Z98.818 Other dental procedure status; I34.1 Nonrheumatic mitral (valve) prolapse; Z79.899 Other long term (current) drug therapy
CPT/HCPCS: 71275; 76705; 80053; 83690; 84484; 85025; 85610; 93005; 99284; Q9967; A4216

== ENCOUNTER 2021-09-03 12:49 | Outpatient (CLI) | payer OTHER, SELFPAY ==
[2021-09-08 09:30] LABS: HPV APTIMA, High Risk Negative (Negative)
== END 2021-09-03 23:59 | disposition short-term general hospital (02) ==
LOC: LABSPEC 12:50
PROVIDERS: PCP Internal Medicine; Visit Provider Nurse Practitioner Women's Health
DX: Z12.4 Encounter for screening for malignant neoplasm of cervix (principal)
CPT/HCPCS: 87624; 88175; G0145

== ENCOUNTER 2021-11-30 11:09 | Emergency (ER) | payer OTHER, SELFPAY ==
[2021-11-30 11:09] VITALS: BP 162/99; PULSE 83; RESP 16; TEMP 36.4; O2SAT 100; BMI 19.9
--- NOTE | 2021-11-30 11:16 | EKG12_ITS ---
Test Reason : CP Blood Pressure : / mmHG Vent. Rate : 091 BPM Atrial Rate : 091 BPM P-R Int : 100 ms QRS Dur : 078 ms QT Int : 358 ms P-R-T Axes : 046 022 043 degrees QTc Int : 440 ms Sinus rhythm with short KS Nonspecific ST and T wave abnormality Abnormal ECG Confirmed by CAROLINE CALLAHAN, ZAK ([id number]), editor at large BRAYAN RODRIGUEZ ([id number]) on 12/03/2021 10:39:51 AM Referred By: Confirmed By:ZAK VELAZQUEZ MD
--- NOTE | 2021-11-30 11:24 | EDS_ITS ---
HPI History of Present Illness Chief Complaint: Chest Pain Onset/Context/Timing Onset: Yesterday Activity at onset: gradual Timing: Continuous Quality: Positive for Aching and Dull Location: Right Chest and Left Chest Current Severity: Mild Maximum Severity: Mild Worsened By: Nothing Relieved By: Nothing Associated Symptoms: Negative for Nausea, Vomiting, Diaphoresis, Dyspnea, Cough, Fever, Lightheadedness, Acid Reflux and Palpitations Narrative Narrative: 51-year-old female history of mitral valve prolapse elevated cholesterol. She is never had any cardiac disease history. She is never had a DVT or PE. No recent travel surgery or immobilization. Since yesterday morning she had some left-sided chest discomfort that is now kind of diffuse to both sides of her chest. Increases with movement. Not associated with exertion. No leg pain or swelling. No cough. No hemoptysis. Its not pleuritic in nature. She is a non-smoker. Prior Similar Symptoms: No Recent Illness/Hospitalization: No CVD Risk Factors: Positive for Family History 1' </=55; Negative for Hypertension, Diabetes, Hypercholesterolemia and Smoking PE Risk Factors: Negative for Recent Travel/Surgery, Recent Immobilization, Prior DVT or PE, Cancer and OCP + Smoking + >/=35 TAD Risk Factors: Negative for Marfan's Syndrome and Hypertension [facility] Medical History Encounter for screening for COVID-19 Home Medications metoprolol succinate 50 mg PO DAILY 03/26/14 [History Last Taken Unknown] Cholecalciferol (Vitamin D3) [Vitamin D3] 2,000 unit PO DAILY 08/15/18 [History Last Taken Unknown] multivitamin 1 tab PO DAILY 09/03/21 [History Last Taken Unknown] rosuvastatin 5 mg tablet 5 mg PO DAILY 09/03/21 [History Last Taken Unknown] Allergy/AdvReac Type Severity Reaction Status Date / Time naproxen [From Aleve] AdvReac Severe Tachycardia Verified 11/30/21 11:12 codeine AdvReac Vomiting Verified 11/30/21 11:12 levofloxacin [From Levaquin] AdvReac Other Verified 11/30/21 11:12 Family History Other Diabetes Heart disease Hypertension Surgical History H/O dilation and curettage History of delivery History of hernia repair Social History household members: family number of children: 1 current occupational status: employed current occupation: [employer] [place] pets and animals: Yes Smoking Status: Never smoker second hand exposure: No alcohol intake: current alcohol intake frequency: a few times a month Alcohol type: beer and wine substance use type: does not use seatbelt use: always do you feel safe at home: Yes additional social history: - [employer] ROS ED ROS Narrative Chest discomfort. Review of Systems ROS Unobtainable: Denies due to encephalopathy Constitutional Constitutional ED: Denies fever(s) Eyes Eyes: Denies none ENT ENT ED: Denies ear pain Cardiovascular Cardiovascular: Reports as per HPI and chest pain; Denies palpitations or racing heartbeat Respiratory/Chest Respiratory/Chest: Denies cough, dyspnea or sputum Gastrointestinal Gastrointestinal: Denies abdominal pain, diarrhea, nausea or vomiting Genitourinary Genitourinary ED: Denies dysuria Musculoskeletal Musculoskeletal: Reports arthralgias and myalgias Integumentary Denies rash Neurologic Neurologic: Denies headache(s) Psychiatric Psychiatric: Denies depression Endocrine Endocrinology: Denies polyuria Hematologic/Lymphatic Hematologic/Lymphatic: Denies easy bruising Allergic/Immunologic Allergic/Immunologic ED: Denies urticaria EXAM Physical Exam Narrative Exam Narrative: 51-year-old female no acute distress. Vital signs stable afebrile. Pulse ox 100% on room air no signs hypoxia. H EENT exam unremarkable. Neck nontender. Lungs clear to auscultation bilaterally. Heart regular rate and rhythm rate about 90 no murmur. Chest wall nontender. Abdomen soft nontender. Moving all 4 extremities. Calves are nontender without edema or cords. Equal symmetrical radial pulses. Back nontender. Neurologically she is awake and alert with no focal motor deficits. Const Vital Signs: 11/30/21 11:09 11/30/21 11:16 11/30/21 11:18 Temperature 97.6 F L Temperature Source Temporal Pulse Rate 83 Respiratory Rate 16 Respiratory Effort Normal Non-Labored Blood Pressure 162/99 H Blood Pressure Mean 120 Pulse Ox 100 Oxygen Delivery Method Room Air Room Air 11/30/21 12:12 Temperature Temperature Source Pulse Rate 70 Respiratory Rate 13 Respiratory Effort Blood Pressure 140/91 H Blood Pressure Mean 107 Pulse Ox 100 Oxygen Delivery Method Room Air Positive well nourished and well developed; Negative for obese, cachectic, contractures or unkempt General Appearance ED: well developed and NAD; Negative for unkempt, cachectic, contractures or pallor Nutritional Appearance: Negative for cachectic or obese HEENT Reports moist mucous membranes normocephalic and atraumatic; Negative for trauma or tenderness Eyes PERRL and EOMs intact bilaterally General Eye ED: Negative for pale conjunctiva or scleral icterus Neck no lymphadenopathy, supple and no JVD General: Negative for tenderness Chest Wall inspection of chest normal and palpation of chest normal Chest: Negative for tenderness Resp normal respiratory effort and clear to auscultation bilaterally Effort and Inspection: respiratory distress Auscultation: Negative for rales, rhonchi or wheezes Cardio regular rate, regular rhythm, S1 normal heart sound, S2 normal heart sound and no murmurs Rate: Negative for bradycardia or tachycardic GI normal to inspection, nondistended, normoactive bowel sounds, soft to palpation, non-tender, non-distended and no masses; Negative for hepatosplenomegaly Auscultation: Negative for hyperactive bowel sounds Back/Spine no CVA tenderness and no thoracic nor lumbar tenderness General Back: Negative for CVA tenderness Cervical Spine: Negative for cervical spine tenderness Extremity normal to inspection General Extremety ED: Negative for edema, pulses abnormal or tenderness General Extremity: Negative for edema or pulses abnormal Neuro oriented x3 and CN's II-XII intact bilaterally Sensorium / Orientation: awake, alert, oriented to person, oriented to place and oriented to time Motor Exam: strength 5/5 throughout Psych mental status grossly normal Appearance: Negative for unkempt Attitude: No agitated Mood & Affect: Negative for depressed or tearful Skin no rashes or lesions noted and no wounds General Skin Exam: Negative for jaundice or pallor Heart Score History: Slightly/Non-Suspicious ECG: Normal Age: >45 - <65 years Risk Factors: No Risk Factors Troponin: </= Normal Limit Score: 1 MDM MDM MDM Narrative Medical decision making narrative: 51-year-old female with atypical chest pain has been ongoing since yesterday. Is nonexertional. She has no cardiac history. She is a non-smoker. She is not diabetic. She does have high cholesterol. She has had no exertional symptoms. Exam is negative. She undergo cardiac work-up. She has no risk factors for DVT or PE. Repeat exam patient doing well at 12:43 PM. She is symptom-free. We went over all of her test results. She is having no exertional symptoms. She is comfortable being discharged home to follow-up with her primary care physician. Lab Data Attestation: I reviewed the patient's lab results. Lab results narrative: CBC normal. White count of 5. H&H 13 and 38. Platelets 283. Electrolytes normal gap 7 normal BUN and creatinine. Troponin 3. Chest x-ray normal. Labs: Laboratory Results - last 24 hr 11/30/21 11/30/21 11:20 11:20 WBC 5.7 RBC 4.18 L Hgb 13.0 Hct 38.4 MCV 91.9 MCH 31.1 MCHC 33.9 RDW Std Deviation 40.1 RDW Coeff of Goyo 11.8 Plt Count 283 MPV 9.9 Immature Gran % (Auto) 0.200 Neut % (Auto) 41.3 L Lymph % (Auto) 46.6 H [place] % (Auto) 9.4 Eos % (Auto) 1.6 Baso % (Auto) 0.9 Absolute Neuts (auto) 2.3 Absolute Lymphs (auto) 2.64 Nucleated RBC % 0 Sodium 140 Potassium 3.5 Chloride 105 Carbon Dioxide 28.0 Anion Gap 7 BUN 16 Creatinine 0.76 Estim Creat Clear Calc 82.15 Est GFR (MDRD) Af Amer 103 Est GFR (MDRD) Non-Af 85 BUN/Creatinine Ratio 21.1 H Glucose 110 H Calcium 9.7 Troponin I High Sens 3 Radiography Chest X-Ray - ED: 1 View, Read by ED Physician, Heart, Lungs, Mediastinum, Bony Structures and No Acute Disease Diagnostic Testing: Clinical Impression(s) from Imaging Studies Chest X-Ray 11/30/21 11:25 IMPRESSION: Normal x-ray examination of the chest. Electronically Signed: Pop Carter MD at 11:44 EDT , Chest x-ray, portable, single view interpreted by myself and the radiologist shows no acute abnormality. Normal cardiac silhouette mediastinum. Rhythm Strip Rhythm Strip: Sinus Rhythm Rate: 91 Ectopy: None EKG Initial EKG: Attestation: I personally reviewed and interpreted this EKG as follows: Interpretation: Sinus Rhythm and No Acute Injury Pattern Comments: Normal sinus rhythm rate of 89-year-old no acute signs of AL nor ischemia. Prior EKG tracings: not available for review Discharge Plan Triage Chief Complaint: Chest Pain ED Provider: Hubert Morillo Dx/Rx/DC Orders Clinical Impression: Chest pain, Mitral valve prolapse Instructions: ED Chest Pain, Uncertain Cause Prescriptions: No Action rosuvastatin [Crestor] 5 mg tablet 5 mg PO DAILY RF: 0 multivitamin Tablet 1 tab PO DAILY RF: 0 metoprolol succinate 50 MG tablet 50 mg PO DAILY RF: 0 Cholecalciferol (Vitamin D3) [Vitamin D3] 5,000 UNIT capsule 2,000 unit PO DAILY RF: 0 Primary Care Provider: Mary Díaz Referrals: Mary Díaz MD [Primary Care Provider] - As soon as possible Activity Restrictions/Additional Instructions: Follow-up your primary care physician. All your test today including EKG, chest x-ray and labs were all normal. Return if feeling a lot worse or worsening chest pain. Disposition Disposition: Home, Self Care
--- NOTE | 2021-11-30 11:25 | RAD_ITS ---
STUDY: X-RAY CHEST REASON FOR EXAM: Female, 51 years old. Chest pain TECHNIQUE: Single AP portable view of the chest. COMPARISON: None. FINDINGS: The lungs are clear and expanded. There is no demonstrated pleural abnormality. Normal size heart. Normal mediastinum and horace. Normal visualized pulmonary arteries. Normal visualized aortic arch and descending thoracic aorta. Normal visualized thoracic spine. Normal visualized ribs, clavicles, and shoulders. There is no demonstrated abnormality of the visualized soft tissue structures of the upper abdomen. RAD/Chest 1 View (Portable) IMPRESSION: Normal x-ray examination of the chest. Electronically Signed: Pop Carter MD at 11:44 EDT ,
[2021-11-30 11:28] LABS: Absolute Lymphocyte Count 2.64 X10^3/uL (0.83-4.51); Absolute Neutrophil Count 2.3 X10^3/uL (2.0-7.7); Basophil# 0.05 X10^3/uL; Basophil% 0.9 % (0-1); Eosinophil# 0.09 X10^3/uL; Eosinophils% 1.6 % (0-5); Hematocrit 38.4 % (37-47); Lymphocyte # 2.64 X10^3/ul (0.83-4.51); Lymphocyte % 46.6 % (19-41); Mean Corp Hgb Conc 33.9 g/dL (32-36); Mean Corpuscular Hgb 31.1 pg (27.0-32.0); Mean Corpuscular Volume 91.9 fL (81-99); Mean Platelet Vol. 9.9 fl (6.2-12.0); Monocyte# 0.53 X10^3/uL; Monocyte% 9.4 % (0-10); NRBC Flagged by Analyzer 0 % (0-5); Neutrophil # 2.34 X10^3/uL (2.7-7.7); Neutrophil % 41.3 % (47-70); Platelet Count 283 K/mm3 (150-450); RBC Distribution Width CV 11.8 % (11.6-14.6); RBC Distribution Width SD 40.1 fl (35.1-43.9); Red Blood Count 4.18 M/mm3 (4.2-5.4); White Blood Count 5.7 K/mm3 (4.4-11.0)
[2021-11-30] MEDS: Aspirin 81 MG TAB.CHEW 324 MG PO (11:35)
[2021-11-30 12:08] LABS: Anion Gap 7 (5-15); BUN 16 mg/dL (7-18); BUN/Creat Ratio 21.1 RATIO (10-20); Calcium,Total 9.7 mg/dL (8.5-10.1); Chloride 105 mmol/L (98-107); Creatinine, Serum 0.76 mg/dL (0.55-1.02); EST Glomerular Filtration Rate 85 mL/min (>60); Est Glom Filt Rate - Afr Amer 103 mL/min (>60); Estimated Creatinine Clearance 82.15 ml/min; Glucose 110 mg/dL (74-106); Potassium 3.5 mmol/L (3.5-5.1); Sodium Level 140 mmol/L (136-145); Troponin-I HS (w/2H Reflex) 3 pg/mL (3.0-54.0)
[2021-11-30 12:12] VITALS: BP 140/91; PULSE 70; RESP 13; O2SAT 100
[2021-11-30 13:26] LABS: Reflex Troponin-HS? (from REC) Y
== END 2021-11-30 12:51 | disposition home or self-care (01) ==
PROVIDERS: Emergency Provider Emergency Medicine; PCP Internal Medicine; Visit Provider Emergency Medicine
DX: I34.1 Nonrheumatic mitral (valve) prolapse (principal); E78.00 Pure hypercholesterolemia, unspecified; Z79.899 Other long term (current) drug therapy
CPT/HCPCS: 71045; 80048; 84484; 85025; 93005; 99285; A4216

== ENCOUNTER 2021-12-19 11:41 | Emergency (ER) | payer OTHER, SELFPAY ==
[2021-12-19 11:42] VITALS: BP 162/89; PULSE 91; RESP 16; TEMP 36.8; O2SAT 100; BMI 27.7
--- NOTE | 2021-12-19 11:57 | EKG12_ITS ---
Test Reason : CP Blood Pressure : / mmHG Vent. Rate : 088 BPM Atrial Rate : 088 BPM P-R Int : 098 ms QRS Dur : 078 ms QT Int : 378 ms P-R-T Axes : 039 017 033 degrees QTc Int : 457 ms Sinus rhythm with short MD Otherwise normal ECG Confirmed by CAROLINE CALLAHAN, ZAK ([id number]), editor index RODGER JAMES ([id number]) on 12/23/2021 8:53:22 AM Referred By: ER Confirmed By:ZAK VELAZQUEZ MD
--- NOTE | 2021-12-19 11:58 | EDS_ITS ---
HPI History of Present Illness Chief Complaint: Palpitations Informant: patient and EMS Onset/Context/Timing Onset: Today (Just prior to arrival) Activity at onset: sudden and rest (While sitting at work) Timing: Intermittent (1 episode today) and Lasts (About 30 seconds total) Quality: Positive for - (Irregular, palpitations) Current Severity: Gone Maximum Severity: Severe Worsened By: Nothing Relieved By: Nothing (Nothing in particular. 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 EMS was called. Now she is asymptomatic and her pulse is in the 80s and regular. She has not taken her metoprolol 50 mg yet today, she usually takes it late in the morning on workdays and just has not gotten to it yet today. She has mitral valve prolapse, and has had mild palpitations off-and-on for 25 years, for which she is on the metoprolol. She has no history of any other heart problems but there is a strong family history of coronary disease. She has never had a stress test. She has recently been referred to cardiology because she has had mild intermittent random chest pains for the past 3 weeks or so, but she has not seen a batch records clerk yet nor has she made an appointment yet. The pains are nonpleuritic, they occur sternal, and bilateral upper chest, sometimes on one side and sometimes on the other. No other associated symptoms when she gets those including the palpitations she had today. CVD Risk Factors: Positive for Hypercholesterolemia and Family History 1' </=55; Negative for Hypertension, Diabetes and Smoking PE Risk Factors: Negative for Recent Travel/Surgery, Recent Immobilization, Prior DVT or PE, Cancer and OCP + Smoking + >/=35 [facility] Medical History (Updated 12/19/21 @ 14:[address] Samson Cohn MD) Fibromyalgia GERD (gastroesophageal reflux disease) Herniated lumbar intervertebral disc Hyperlipemia Mitral valve prolapse Home Medications metoprolol succinate 50 mg PO DAILY 03/26/14 [History Last Taken Unknown] Cholecalciferol (Vitamin D3) [Vitamin D3] 2,000 unit PO DAILY 08/15/18 [History Last Taken Unknown] multivitamin 1 tab PO DAILY 09/03/21 [History Last Taken Unknown] rosuvastatin 5 mg tablet 10 mg PO QHS 09/03/21 [History Last Taken Unknown] omeprazole 20 mg PO DAILY 12/19/21 [History Last Taken Unknown] Allergy/AdvReac Type Severity Reaction Status Date / Time naproxen [From Aleve] AdvReac Severe Tachycardia Verified 11/30/21 11:12 codeine AdvReac Vomiting Verified 11/30/21 11:12 levofloxacin [From Levaquin] AdvReac Other Verified 11/30/21 11:12 Family History Other Diabetes Heart disease Hypertension Surgical History H/O dilation and curettage History of delivery History of hernia repair Social History household members: family number of children: 1 current occupational status: employed current occupation: [employer] pets and animals: Yes Smoking Status: Never smoker second hand exposure: No alcohol intake: current alcohol intake frequency: a few times a month Alcohol type: beer and wine substance use type: does not use seatbelt use: always do you feel safe at home: Yes additional social history: - [employer] ED Constitutional Constitutional ED: Denies chills or fever(s) Eyes Eyes: Denies change in vision or diplopia ENT ENT ED: Denies rhinorrhea or sore throat Cardiovascular Cardiovascular: Reports as per HPI, chest pain, lightheadedness and palpitations; Denies leg edema Respiratory/Chest Respiratory/Chest: Denies cough or dyspnea Gastrointestinal Gastrointestinal: Reports abdominal pain and other Details: States she has chronic mild intermittent abdominal discomfort and GERD ; Denies diarrhea, nausea or vomiting Genitourinary Genitourinary ED: Denies dysuria or hematuria Musculoskeletal Musculoskeletal: Denies back pain or neck pain Integumentary Denies abscess or rash Neurologic Neurologic: Denies headache(s), paresthesias or weakness Psychiatric Psychiatric: Denies anxiety or suicidal thoughts EXAM Physical Exam Const Vital Signs: 12/19/21 11:42 12/19/21 11:46 12/19/21 12:17 Temperature 98.3 F Temperature Source Oral Pulse Rate 91 Respiratory Rate 16 Respiratory Effort Normal Non-Labored Blood Pressure 162/89 H Blood Pressure Mean 113 Pulse Ox 100 100 Oxygen Delivery Method Room Air Room Air 12/19/21 13:08 Temperature Temperature Source Pulse Rate 83 Respiratory Rate 18 Respiratory Effort Blood Pressure 125/78 H Blood Pressure Mean 93 Pulse Ox 100 Oxygen Delivery Method Positive well nourished and well developed General Appearance ED: well developed and NAD HEENT Reports moist mucous membranes normocephalic and atraumatic Eyes PERRL and EOMs intact bilaterally Neck full ROM and supple Resp normal respiratory effort and clear to auscultation bilaterally Cardio regular rate, regular rhythm and no murmurs Jugular Venous Distention: Negative for JVD GI non-tender and non-distended Auscultation: normoactive bowel sounds Palpation: soft Back/Spine no CVA tenderness General Back: other FROM Extremity normal to inspection General Extremety ED: Negative for edema, pulses abnormal or tenderness General Extremity: Negative for edema or pulses abnormal Neuro oriented x3, CN's II-XII intact bilaterally and no sensory deficits noted Sensorium / Orientation: awake and alert Motor Exam: strength 5/5 throughout Skin no rashes or lesions noted and no wounds Heart Score History: Slightly/Non-Suspicious ECG: Normal Age: >45 - <65 years Risk Factors: 1 or 2 Risk Factors Troponin: </= Normal Limit Score: 2 MDM MDM MDM Narrative Medical decision making narrative: Patient was monitored for several hours here in the emergency department and had no recurrent telemetry events or symptoms. I discussed with cardiology, they agree that her chest pain does not sound cardiac or dangerous, and with regards to that in the palpitations she may safely follow-up as an outpatient, the patient does wish to follow-up here in [place] rather than [facility], so we were able to find an available Holter monitor that we placed on her and she was given follow-up instructions. She was given her metoprolol succinate 50 mg prior to discharge, and advised to continue this as prescribed. Lab Data Attestation: I reviewed the patient's lab results. Labs: Laboratory Results - last 24 hr 12/19/21 12/19/21 12/19/21 11:32 11:32 11:32 WBC 6.1 RBC 4.28 Hgb 13.6 Hct 39.8 MCV 93.0 MCH 31.8 MCHC 34.2 RDW Std Deviation 40.3 RDW Coeff of Goyo 13.9 Plt Count 272 MPV 10.8 Immature Gran % (Auto) 0.200 Neut % (Auto) 44.8 L Lymph % (Auto) 44.3 H [place] % (Auto) 8.8 Eos % (Auto) 1.1 Baso % (Auto) 0.8 Absolute Neuts (auto) 2.7 Absolute Lymphs (auto) 2.71 Nucleated RBC % 0 Sodium Cancelled Potassium Cancelled Chloride Cancelled Carbon Dioxide Cancelled Anion Gap Cancelled BUN Cancelled Creatinine Cancelled Estim Creat Clear Calc Cancelled Est GFR (MDRD) Af Amer Cancelled Est GFR (MDRD) Non-Af Cancelled BUN/Creatinine Ratio Cancelled Glucose Cancelled Calcium Cancelled Troponin I High Sens Cancelled 12/19/21 13:05 WBC RBC Hgb Hct MCV MCH MCHC RDW Std Deviation RDW Coeff of [place]oyo Plt Count MPV Immature Gran % (Auto) Neut % (Auto) Lymph % (Auto) [place] % (Auto) Eos % (Auto) Baso % (Auto) Absolute Neuts (auto) Absolute Lymphs (auto) Nucleated RBC % Sodium 140 Potassium 4.0 Chloride 104 Carbon Dioxide 30.0 Anion Gap 6 BUN 15 Creatinine 0.71 Estim Creat Clear Calc 67.33 Est GFR (MDRD) Af Amer 111 Est GFR (MDRD) Non-Af 92 BUN/Creatinine Ratio 21.0 H Glucose 97 Calcium 9.2 Troponin I High Sens 11 Radiography Chest X-Ray - ED: 1 View, Read by ED Physician, Normal and No Acute Disease Diagnostic Testing: Clinical Impression(s) from Imaging Studies Chest X-Ray 12/19/21 12:00 IMPRESSION: No radiographic evidence of acute cardiopulmonary disease. Electronically Signed: Burt Mcgee MD at 12:20 EDT Reading Location ID and State: [facility] / [place] Tel , Service support , EKG Initial EKG: Attestation: I personally reviewed and interpreted this EKG as follows: Interpretation: Sinus Rhythm (88) and No Acute Injury Pattern Comments: Somewhat short ID otherwise normal EKG. No delta waves. No ST segment deviations, no abnormally inverted T waves. Discharge Plan Triage Chief Complaint: Palpitations ED Provider: Samson Cohn Dx/Rx/DC Orders Clinical Impression: Heart palpitations, Near syncope, Atypical chest pain, History of mitral valve prolapse Instructions: ED About Arrhythmias, ED Palpitations Prescriptions: No Action rosuvastatin [Crestor] 5 mg tablet 10 mg PO QHS RF: 0 multivitamin Tablet 1 tab PO DAILY RF: 0 metoprolol succinate 50 MG tablet 50 mg PO DAILY RF: 0 Cholecalciferol (Vitamin D3) [Vitamin D3] 5,000 UNIT capsule 2,000 unit PO DAILY RF: 0 omeprazole 20 mg capsule,delayed release(DR/EC) 20 mg PO DAILY RF: 0 Primary Care Provider: Mary Díaz Referrals: Juaquin Shipley MD [STAFF PHYSICIAN] - (or other available batch records clerk, call for appt) Mary Díaz MD [Primary Care Provider] - Disposition Disposition: Home, Self Care
--- NOTE | 2021-12-19 12:00 | RAD_ITS ---
INDICATION: chest pain EXAMINATION/TECHNIQUE: X-RAY - XR Chest 1 View COMPARISON: 11/30/2021. FINDINGS: LINES/DEVICES: None. LUNGS: No consolidation, edema or effusion. No pneumothorax. MEDIASTINUM AND CARDIOVASCULAR STRUCTURES: Cardiac silhouette not enlarged. Central airways and mediastinal contour are unremarkable. BONES AND SOFT TISSUES: Unremarkable. RAD/Chest 1 View (Portable) IMPRESSION: No radiographic evidence of acute cardiopulmonary disease. Electronically Signed: Burt Mcgee MD at 12:20 EDT ,
[2021-12-19 12:17] VITALS: O2SAT 100
[2021-12-19 12:38] LABS: Absolute Lymphocyte Count 2.71 X10^3/uL (0.83-4.51); Absolute Neutrophil Count 2.7 X10^3/uL (2.0-7.7); Basophil# 0.05 X10^3/uL; Basophil% 0.8 % (0-1); Eosinophil# 0.07 X10^3/uL; Eosinophils% 1.1 % (0-5); Hematocrit 39.8 % (37-47); Hemoglobin 13.6 g/dL (12.0-15.0); Lymphocyte # 2.71 X10^3/ul (0.83-4.51); Lymphocyte % 44.3 % (19-41); Mean Corp Hgb Conc 34.2 g/dL (32-36); Mean Corpuscular Hgb 31.8 pg (27.0-32.0); Mean Platelet Vol. 10.8 fl (6.2-12.0); Monocyte# 0.54 X10^3/uL; Monocyte% 8.8 % (0-10); NRBC Flagged by Analyzer 0 % (0-5); Neutrophil # 2.74 X10^3/uL (2.7-7.7); Neutrophil % 44.8 % (47-70); Platelet Count 272 K/mm3 (150-450); RBC Distribution Width CV 13.9 % (11.6-14.6); RBC Distribution Width SD 40.3 fl (35.1-43.9); Red Blood Count 4.28 M/mm3 (4.2-5.4); White Blood Count 6.1 K/mm3 (4.4-11.0)
[2021-12-19 13:08] VITALS: BP 125/78; PULSE 83; RESP 18; O2SAT 100
[2021-12-19 13:35] LABS: Anion Gap 6 (5-15); BUN 15 mg/dL (7-18); Calcium,Total 9.2 mg/dL (8.5-10.1); Chloride 104 mmol/L (98-107); Creatinine, Serum 0.71 mg/dL (0.55-1.02); EST Glomerular Filtration Rate 92 mL/min (>60); Est Glom Filt Rate - Afr Amer 111 mL/min (>60); Estimated Creatinine Clearance 67.33 ml/min; Glucose 97 mg/dL (74-106); Sodium Level 140 mmol/L (136-145); Troponin-I HS (w/2H Reflex) 11 pg/mL (3.0-54.0)
[2021-12-19 14:21] VITALS: BP 125/86; PULSE 88; RESP 18; O2SAT 98
[2021-12-19] MEDS: Metoprolol(XL)Succ 50 MG Tablet PO (14:23)
== END 2021-12-19 14:51 | disposition home or self-care (01) ==
PROVIDERS: Emergency Provider Emergency Medicine; PCP Internal Medicine; Visit Provider Emergency Medicine
DX: R00.2 Palpitations (principal); R55 Syncope and collapse; R07.89 Other chest pain; Z79.899 Other long term (current) drug therapy; K21.9 Gastro-esophageal reflux disease without esophagitis
CPT/HCPCS: 71045; 80048; 84484; 85025; 93005; 99285; A4216

== ENCOUNTER → 2021-12-19 | Outpatient (CLI) | payer OTHER, SELFPAY | END | disposition home or self-care (01) | LOC: CVS 14:17 | PROVIDERS: PCP Internal Medicine; Visit Provider Emergency Medicine | DX: Z00.00 Encounter for general adult medical examination without abnormal findings (principal) ==

== ENCOUNTER 2022-01-05 12:25 | Emergency (ER) | payer OTHER, SELFPAY ==
[2022-01-05 12:26] VITALS: BP 158/95; PULSE 82; RESP 16; TEMP 36.6; O2SAT 98; BMI 25.0
--- NOTE | 2022-01-05 12:42 | EKG12_ITS ---
Test Reason : DIZZY Blood Pressure : / mmHG Vent. Rate : 077 BPM Atrial Rate : 077 BPM P-R Int : 114 ms QRS Dur : 076 ms QT Int : 370 ms P-R-T Axes : 041 015 033 degrees QTc Int : 418 ms Normal sinus rhythm Nonspecific ST abnormality Abnormal ECG Confirmed by SHANTEL CALLAHAN, SAM ([id number]), editorial manager RODGER JAMES ([id number]) on 01/06/2022 1:17:43 PM Referred By: MICHAEL Confirmed By:SAM FUNES MD
--- NOTE | 2022-01-05 12:42 | EX.ED.DYSGE1 ---
HPI History of Present Illness Chief Complaint: Dizziness Detail of Chief Complaint: Dizziness, which the patient defines as something weird between her eyes an Informant: patient Onset/Context/Timing Onset: Weeks Context: Sudden Onset Timing: Intermittent Quality: Pounding in her chest, lightheadedness and unusual sensation between her ey Location: Previously documented Current Severity: Mild Maximum Severity: Moderate Worsened by: Rising from a sitting position Relieved by: Nothing Associated Symptoms Associated Symptoms: Nothing Narrative Narrative: Patient is a 51-year-old woman who presents with dizziness defined as lightheadedness and unusual sensation between her eyes. She also feels pounding in her chest. She was seen approxi-1 week ago for similar presentation. She was discharged with a Holter monitor. The Holter monitor was 48 hours. Cardiology ordered an event monitor. Patient denies headache, double vision, blurred vision or loss of vision. She does report ringing or ears. She denies decreased hearing. She denies vertiginous symptoms. She denies trouble with speech or swallowing. She denies chest pressure or heaviness. She denies shortness of breath or difficulty breathing. She denies nausea, vomiting or diarrhea. She denies urologic symptoms. She denies leg pain, swelling discoloration. She has no history of VTE. She denies black or maroon-colored stool. Prior similar symptoms: Yes Recent Illness/Hospitalization: Yes [facility] Medical History Fibromyalgia GERD (gastroesophageal reflux disease) Herniated lumbar intervertebral disc Hyperlipemia Mitral valve prolapse Home Medications metoprolol succinate 50 mg PO DAILY 03/26/14 [History Last Taken Unknown] Cholecalciferol (Vitamin D3) [Vitamin D3] 2,000 unit PO DAILY 08/15/18 [History Last Taken Unknown] multivitamin 1 tab PO DAILY 09/03/21 [History Last Taken Unknown] rosuvastatin 5 mg tablet 10 mg PO QHS 09/03/21 [History Last Taken Unknown] omeprazole 20 mg PO DAILY 12/19/21 [History Last Taken Unknown] aspirin 81 mg PO/SL DAILY 01/05/22 [History Last Taken Unknown] Allergy/AdvReac Type Severity Reaction Status Date / Time naproxen [From Aleve] AdvReac Severe Tachycardia Verified 01/05/22 12:27 codeine AdvReac Vomiting Verified 01/05/22 12:27 levofloxacin [From Levaquin] AdvReac Other Verified 01/05/22 12:27 Family History Other Diabetes Heart disease Hypertension Surgical History H/O dilation and curettage History of delivery History of hernia repair Social History household members: family number of children: 1 current occupational status: employed current occupation: [employer] pets and animals: Yes Smoking Status: Never smoker second hand exposure: No alcohol intake: current alcohol intake frequency: a few times a month Alcohol type: beer and wine substance use type: does not use seatbelt use: always do you feel safe at home: Yes additional social history: - [employer] ED Constitutional Constitutional ED: Denies chills, fever(s), subjective, sweats or weight loss Eyes Eyes: Denies blurry vision, change in vision or diplopia ENT ENT ED: Denies ear pain, rhinorrhea or sore throat Cardiovascular Cardiovascular: Reports palpitations; Denies chest pain, orthopnea or racing heartbeat Respiratory/Chest Respiratory/Chest: Denies cough, dyspnea, dyspnea on exertion, orthopnea or sputum Gastrointestinal Gastrointestinal: Denies abdominal pain, diarrhea, melena, nausea or vomiting Genitourinary Genitourinary ED: Denies dysuria, hematuria or urinary frequency Musculoskeletal Musculoskeletal: Denies arthralgias, back pain, myalgias or neck pain Integumentary Denies abscess, Abrasions or rash Neurologic Neurologic: Denies headache(s), paresthesias or weakness Endocrine Endocrinology: Denies polydipsia, polyphagia or polyuria Allergic/Immunologic Allergic/Immunologic ED: Denies mouth swelling, tongue swelling or urticaria EXAM Physical Exam Const Vital Signs: 01/05/22 12:26 01/05/22 12:33 01/05/22 13:14 Temperature 98 F Temperature Source Temporal Pulse Rate 82 Pulse Rate [Lying] 69 Pulse Rate [Sitting (for 1 minute prior to obtaining)] 70 Pulse Rate [Standing (for 1 minute prior to obtaining)] 83 Respiratory Rate 16 Respiratory Effort Normal Blood Pressure 158/95 H Blood Pressure [Lying] 146/80 H Blood Pressure [Sitting (for 1 minute prior to obtaining)] 137/77 H Blood Pressure [Standing (for 1 minute prior to obtaining)] 136/89 H Blood Pressure Mean 116 Blood Pressure Mean [Lying] 102 Blood Pressure Mean [Sitting (for 1 minute prior to obtaining)] 97 Blood Pressure Mean [Standing (for 1 minute prior to obtaining)] 104 Pulse Ox 98 Oxygen Delivery Method Room Air 01/05/22 13:27 Temperature Temperature Source Pulse Rate 73 Pulse Rate [Lying] Pulse Rate [Sitting (for 1 minute prior to obtaining)] Pulse Rate [Standing (for 1 minute prior to obtaining)] Respiratory Rate 14 Respiratory Effort Blood Pressure 136/89 H Blood Pressure [Lying] Blood Pressure [Sitting (for 1 minute prior to obtaining)] Blood Pressure [Standing (for 1 minute prior to obtaining)] Blood Pressure Mean 104 Blood Pressure Mean [Lying] Blood Pressure Mean [Sitting (for 1 minute prior to obtaining)] Blood Pressure Mean [Standing (for 1 minute prior to obtaining)] Pulse Ox 98 Oxygen Delivery Method Room Air Positive well nourished and well developed General Appearance ED: well developed and NAD; Negative for cyanotic, diaphoretic or pallor HEENT Reports TM's clear and moist mucous membranes HEENT Narrative: Uvula midline. There is no erythema or exudate. Negative for trauma or tenderness Tympanic Membrane ED: Yes TM's clear Eyes PERRL and EOMs intact bilaterally Eyes Narrative: There is no nystagmus. There is no APD. General Eye ED: Negative for pale conjunctiva or scleral icterus Neck no lymphadenopathy, supple and no JVD Chest Wall palpation of chest normal Resp normal respiratory effort and clear to auscultation bilaterally Cardio regular rate, regular rhythm, S1 normal heart sound, S2 normal heart sound and no murmurs GI normal to inspection, nondistended, normoactive bowel sounds and non-tender Palpation: soft Back/Spine no CVA tenderness Cervical Spine: Negative for cervical spine tenderness Thoracic Spine / Upper Back: Negative for thoracic spinal tenderness or paraspinal muscle tenderness Neuro oriented x3, CN's II-XII intact bilaterally and no sensory deficits noted Sensorium / Orientation: alert Motor Exam: strength 5/5 throughout Psych mental status grossly normal Skin no rashes or lesions noted, no wounds and skin turgor normal General Skin Exam: Negative for jaundice or pallor MDM MDM MDM Narrative Medical decision making narrative: Will assess orthostatic vitals. Will obtain CBC and compare to H&H from 1 week ago. Will obtain basic metabolic panel to assess BUN to creatinine ratio and electrolytes. EKG was obtained per nurse protocol. The EKG is normal. There is artifact which computer is interpreting as an ossific changes. Lab Data Attestation: I reviewed the patient's lab results. Lab results narrative: H&H essentially unchanged from a week ago. BUN to creatinine ratio normal. Labs: Laboratory Results - last 24 hr 01/05/22 01/05/22 13:05 13:05 WBC 8.2 RBC 4.33 Hgb 13.6 Hct 39.7 MCV 91.7 MCH 31.4 MCHC 34.3 RDW Std Deviation 38.2 RDW Coeff of Goyo 11.2 L Plt Count 320 MPV 9.8 Sodium 137 Potassium 4.3 Chloride 101 Carbon Dioxide 29.0 Anion Gap 7 BUN 16 Creatinine 0.75 Estim Creat Clear Calc 63.74 Est GFR (MDRD) Af Amer 104 Est GFR (MDRD) Non-Af 86 BUN/Creatinine Ratio 21.3 H Glucose 109 H Calcium 9.9 EKG Initial EKG: Attestation: I personally reviewed and interpreted this EKG as follows: Interpretation: Sinus Rhythm (Normal sinus rhythm rate of 77. EKG is normal. SD interval is 114 ms. QRS duration 76 ms. QT duration 370 ms. [place] is normal.) Discharge Plan Triage Chief Complaint: Dizziness ED Provider: Hayden Madrigal Dx/Rx/DC Orders Clinical Impression: Heart palpitations, Orthostatic lightheadedness Instructions: ED Dizziness, Uncertain Cause, ED Palpitations Prescriptions: No Action rosuvastatin [Crestor] 5 mg tablet 10 mg PO QHS RF: 0 multivitamin Tablet 1 tab PO DAILY RF: 0 metoprolol succinate 50 MG tablet 50 mg PO DAILY RF: 0 Cholecalciferol (Vitamin D3) [Vitamin D3] 5,000 UNIT capsule 2,000 unit PO DAILY RF: 0 omeprazole 20 mg capsule,delayed release(DR/EC) 20 mg PO DAILY RF: 0 aspirin 81 mg PO/SL DAILY RF: 0 Primary Care Provider: Mary Díaz Referrals: Mary Díaz MD [Primary Care Provider] - Disposition Disposition: Home, Self Care
[2022-01-05 13:14] VITALS: BP 136/89; BP 137/77; BP 146/80; PULSE 69; PULSE 70; PULSE 83
[2022-01-05 13:16] LABS: Hematocrit 39.7 % (37-47); Hemoglobin 13.6 g/dL (12.0-15.0); Mean Corp Hgb Conc 34.3 g/dL (32-36); Mean Corpuscular Hgb 31.4 pg (27.0-32.0); Mean Corpuscular Volume 91.7 fL (81-99); Mean Platelet Vol. 9.8 fl (6.2-12.0); Platelet Count 320 K/mm3 (150-450); RBC Distribution Width CV 11.2 % (11.6-14.6); RBC Distribution Width SD 38.2 fl (35.1-43.9); Red Blood Count 4.33 M/mm3 (4.2-5.4); White Blood Count 8.2 K/mm3 (4.4-11.0)
[2022-01-05 13:27] VITALS: BP 136/89; PULSE 73; RESP 14; O2SAT 98
[2022-01-05 13:55] LABS: Anion Gap 7 (5-15); BUN 16 mg/dL (7-18); BUN/Creat Ratio 21.3 RATIO (10-20); Calcium,Total 9.9 mg/dL (8.5-10.1); Chloride 101 mmol/L (98-107); Creatinine, Serum 0.75 mg/dL (0.55-1.02); EST Glomerular Filtration Rate 86 mL/min (>60); Est Glom Filt Rate - Afr Amer 104 mL/min (>60); Estimated Creatinine Clearance 63.74 ml/min; Glucose 109 mg/dL (74-106); Potassium 4.3 mmol/L (3.5-5.1); Sodium Level 137 mmol/L (136-145)
[2022-01-05 14:12] VITALS: BP 144/83; PULSE 71; RESP 18
== END 2022-01-05 14:16 | disposition home or self-care (01) ==
PROVIDERS: Emergency Provider Emergency Medicine; PCP Internal Medicine; Visit Provider Emergency Medicine
DX: R00.2 Palpitations (principal); R42 Dizziness and giddiness; E78.5 Hyperlipidemia, unspecified; Z79.82 Long term (current) use of aspirin; Z79.899 Other long term (current) drug therapy
CPT/HCPCS: 80048; 85027; 93005; 99284; A4216

== ENCOUNTER → 2022-09-08 | Outpatient (CLI) | payer OTHER, SELFPAY | END | disposition home or self-care (01) | PROVIDERS: PCP Internal Medicine; Visit Provider Nurse Practitioner Women's Health | DX: R31.9 Hematuria, unspecified (principal); R30.0 Dysuria | CPT/HCPCS: 87070; 87077; 87086; 87186; 87205 ==

== ENCOUNTER → 2024-10-30 | Outpatient (CLI) | payer OTHER, SELFPAY | END | disposition home or self-care (01) | LOC: LABSPEC 09:56 | PROVIDERS: PCP Internal Medicine; Referring Provider Nurse Practitioner Women's Health; Visit Provider Nurse Practitioner Women's Health | DX: N89.8 Other specified noninflammatory disorders of vagina (principal) | CPT/HCPCS: 87070; 87205 ==

== ENCOUNTER 2025-04-02 15:39 | Emergency (ER) | payer OTHER, SELFPAY ==
[2025-04-02 15:39] VITALS: BP 161/86; PULSE 105; RESP 18; TEMP 36.6; O2SAT 99; BMI 28.1
--- NOTE | 2025-04-02 16:29 | EDS_ITS ---
HPI HPI - Fall History of Present Illness Chief Complaint: Fall Informant: patient Narrative Narrative: 54-year-old healthy female states she was cleaning out a large garbage tote, she had it turned over on the ground and lost her footing and fell over toward the ground, hitting her head against the tote as she fell, and torquing her neck toward the left creating some right sided neck pain. No loss of consciousness, nausea, vomiting, vision changes. She takes baby aspirin daily for preventative reasons, there is a strong family history of heart problems in her side of the family. No anticoagulants or other antiplatelets. No other pain or injury. No numbness tingling weakness in her arm or leg. [facility] Medical History GERD (gastroesophageal reflux disease) Fibromyalgia Mitral valve prolapse Hyperlipemia Herniated lumbar intervertebral disc Home Medications ?Medication ?Instructions ?Recorded ?Last Taken ?Type Cholecalciferol (Vitamin D3) 2,000 unit PO DAILY 08/15 Unknown History [Vitamin D3] multivitamin 1 tab PO DAILY 09/03/21 Unkn own History rosuvastatin 5 mg tablet (Crestor) 10 mg PO QHS Unknown History omeprazole 20 mg capsule,delayed 20 mg PO DAILY Unknown History release aspirin 81 mg PO/SL DAILY 01/05/22 U nknown History metoprolol succinate 50 mg 50 mg PO DAILY 09/08/22 Unk nown History tablet,extended release 24 hr verapamil 120 mg tablet,extended 120 mg PO DAILY 04/02 Unknown History release Allergy/AdvReac Type Severity Reaction Status Date / Time naproxen (From Aleve) AdvReac Severe Tachycardia Verified 04/02/25 15:40 codeine AdvReac Vomiting Verified 04/02/25 15:40 levofloxacin (From Levaquin) AdvReac Other Verified 04/02/25 15:40 Family History Other Diabetes Heart disease Hypertension Surgical History H/O dilation and curettage History of delivery History of hernia repair Social History household members: family number of children: 1 current occupational status: employed current occupation: [employer] pets and animals: Yes Smoking Status: Never smoker second hand exposure: No alcohol intake: current alcohol intake frequency: a few times a month Alcohol type: beer and wine substance use type: does not use seatbelt use: always do you feel safe at home: Yes additional social history: - [employer] [facility] ED Constitutional Constitutional ED: Denies chills or fever(s) Eyes Eyes: Denies blurry vision, change in vision or diplopia ENT ENT ED: Denies rhinorrhea or sore throat Cardiovascular Cardiovascular: Denies chest pain or palpitations Respiratory/Chest Respiratory/Chest: Denies cough or dyspnea Gastrointestinal Gastrointestinal: Denies abdominal pain, diarrhea, nausea or vomiting Genitourinary Genitourinary ED: Denies dysuria or hematuria Musculoskeletal Musculoskeletal: Reports neck pain; Denies back pain Integumentary Denies abscess or rash Neurologic Neurologic: Reports headache(s); Denies paresthesias or weakness Psychiatric Psychiatric: Denies suicidal thoughts EXAM Physical Exam Const Vital Signs: 04/02/25 15:39 04/02/25 15:39 Temperature 98 F Temperature Source Temporal Pulse Rate 105 H Respiratory Rate 18 Respiratory Effort Normal Non-Labored Respiratory Depth Normal Respiratory Pattern Normal Blood Pressure 161/86 H Blood Pressure Mean 111 Pulse Ox 99 Oxygen Delivery Method Room Air Room Air Positive well nourished and well developed General Appearance ED: well developed and NAD HEENT Reports moist mucous membranes HEENT Narrative: No Murray sign, no raccoon eyes, no CSF otorhinorrhea, no hemotympanum. There is a small tender hematoma right temporal scalp, and an abrasion is higher up at the top of the head a little to the right high parietal without hematoma. Throughout the scalp there is no crepitance or depression. No evidence of facial trauma no intraoral or dental trauma. trauma and hematoma Eyes PERRL and EOMs intact bilaterally Eyes Narrative: No extraocular entrapment or pain with movements. No diplopia with movements. Neck full ROM and supple Neck Narrative: Patient moving neck/head in all directions without limitation. She does have some mild tenderness in the C2-3 midline without step-off or any other areas of midline tenderness throughout the back or neck. Resp normal respiratory effort GI non-tender and non-distended Auscultation: normoactive bowel sounds Palpation: soft Back/Spine no CVA tenderness General Back: other FROM Thoracic Spine / Upper Back: Negative for thoracic spinal tenderness Lumbar Spine / Lower Back: Negative for lumbar spinal tenderness Extremity normal to inspection General Extremety ED: Negative for edema, pulses abnormal or tenderness General Extremity: Negative for edema or pulses abnormal Neuro oriented x3, CN's II-XII intact bilaterally and no sensory deficits noted Tania Coma Scale: document GCS findings Spontaneous Obeys Commands Oriented 15 Sensorium / Orientation: awake and alert Motor Exam: strength 5/5 throughout Psych mental status grossly normal and thought process normal Skin no rashes or lesions noted and no wounds Skin Narrative: Scalp abrasion see above no lacerations MDM MDM MDM Narrative Medical decision making narrative: CT of the head and cervical spine were obtained, my interpretation they are unremarkable radiology in agreement I agree with the reports. Patient doing well. I offered her some ibuprofen or other analgesics and ice pack, she declined, she is comfortable going home just wanted to make sure she was okay. We discussed signs symptoms of concussion, reasons to return to the ER but at this time there is no evidence of intracranial hemorrhage, skull fracture, cervical spine fracture, supportive care is advised and close outpatient follow- up as needed. Radiography Diagnostic Testing: Clinical Impression(s) from Imaging Studies Brain CT 04/02/25 16:40 IMPRESSION: No acute intracranial abnormalities. Reading Location: [facility] Cervical Spine CT 04/02/25 16:40 IMPRESSION: No acute injuries to the cervical spine. Reading Location: [facility] Discharge Plan Triage Chief Complaint: Fall ED Provider: Samson Cohn Dx/Rx/DC Orders Clinical Impression: Fall from slip, trip, or stumble, Closed head injury without loss of consciousness, Acute cervical myofascial strain Instructions: ED Head Injury (Adult) Prescriptions: No Action rosuvastatin [Crestor] 5 mg tablet 10 mg PO QHS multivitamin Tablet 1 tab PO DAILY metoprolol succinate 50 mg tablet extended release 24 hr 50 mg PO DAILY Cholecalciferol (Vitamin D3) [Vitamin D3] 5,000 UNIT capsule 2,000 unit PO DAILY omeprazole 20 mg capsule,delayed release(DR/EC) 20 mg PO DAILY Patient Comments: TAKE 1 CAPSULE BY MOUTH ONCE DAILY BEFORE BREAKFAST aspirin 81 mg PO/SL DAILY verapamil 120 mg tablet extended release 120 mg PO DAILY Primary Care Provider: Mary Díaz Referrals: Mary Díaz MD [Primary Care Provider] - 1 Week if not improving Print Language: Sudanese Disposition Disposition: Home, Self Care
--- NOTE | 2025-04-02 16:40 | CT_ITS ---
PROCEDURE: BRAIN/HEAD WITHOUT CONTRAST 04/02/2025 REASON FOR EXAM: TRAUMA R TEMPORAL, HEADACHE TECHNIQUE: BRAIN/HEAD WITHOUT CONTRAST Coronal and Sagittal reconstruction series were provided. One or more dose reduction techniques were used (e.g., Automated exposure control, adjustment of the mA and/or kV according to patient size, use of iterative reconstruction technique. RADIATION DOSE SUMMARY: CTDlvol: 15.84 mGy DLP: 269.92 mGycm COMPARISON: None. FINDINGS: Brain: Unremarkable. No acute territorial vascular infarction. No intracranial hemorrhage. No mass effect or midline shift. CSF Spaces: Unremarkable. Sinuses/Mastoids: Clear. Bones: No acute fractures. CT/Brain/Head without Contrast IMPRESSION: No acute intracranial abnormalities. Reading Location: [id number]
--- NOTE | 2025-04-02 16:40 | CT_ITS ---
PROCEDURE: SPINE CERVICAL WITHOUT CONTRAS 04/02/2025 REASON FOR EXAM: PAIN/NECK TRAUMA TECHNIQUE: SPINE CERVICAL WITHOUT CONTRAS Coronal and Sagittal reconstruction series were provided. One or more dose reduction techniques were used (e.g., Automated exposure control, adjustment of the mA and/or kV according to patient size, use of iterative reconstruction technique. RADIATION DOSE SUMMARY: CTDlvol: 15.84 mGy DLP: 1049.16 mGycm COMPARISON: None. FINDINGS: Alignment: Normal. Vertebrae: No acute fractures. Soft Tissues: No soft tissue abnormalities. Disc levels: Multilevel degenerative changes predominantly at C5-C6 and C6-C7 where there is disc space narrowing without significant foraminal or canal stenosis. CT/Spine Cervical without Contras IMPRESSION: No acute injuries to the cervical spine. Reading Location: [id number]
--- NOTE | 2025-04-02 16:40 | CT_ITS ---
PROCEDURE: SPINE CERVICAL WITHOUT CONTRAS 04/02/2025 REASON FOR EXAM: PAIN/NECK TRAUMA TECHNIQUE: SPINE CERVICAL WITHOUT CONTRAS Coronal and Sagittal reconstruction series were provided. One or more dose reduction techniques were used (e.g., Automated exposure control, adjustment of the mA and/or kV according to patient size, use of iterative reconstruction technique. RADIATION DOSE SUMMARY: CTDlvol: 15.84 mGy DLP: 1049.16 mGycm COMPARISON: None. FINDINGS: Alignment: Normal. Vertebrae: No acute fractures. Soft Tissues: No soft tissue abnormalities. Disc levels: Multilevel degenerative changes predominantly at C5-C6 and C6-C7 where there is disc space narrowing without significant foraminal or canal stenosis. CT/Spine Cervical without Contras IMPRESSION: No acute injuries to the cervical spine. Reading Location: [id number]
--- NOTE | 2025-04-02 16:40 | CT_ITS ---
PROCEDURE: BRAIN/HEAD WITHOUT CONTRAST 04/02/2025 REASON FOR EXAM: TRAUMA R TEMPORAL, HEADACHE TECHNIQUE: BRAIN/HEAD WITHOUT CONTRAST Coronal and Sagittal reconstruction series were provided. One or more dose reduction techniques were used (e.g., Automated exposure control, adjustment of the mA and/or kV according to patient size, use of iterative reconstruction technique. RADIATION DOSE SUMMARY: CTDlvol: 15.84 mGy DLP: 269.92 mGycm COMPARISON: None. FINDINGS: Brain: Unremarkable. No acute territorial vascular infarction. No intracranial hemorrhage. No mass effect or midline shift. CSF Spaces: Unremarkable. Sinuses/Mastoids: Clear. Bones: No acute fractures. CT/Brain/Head without Contrast IMPRESSION: No acute intracranial abnormalities. Reading Location: [id number]
[2025-04-02 18:11] VITALS: BP 136/74; PULSE 78; RESP 18; TEMP 36.6; O2SAT 99
--- OUTSIDE RECORDS SUMMARY | 2025-04-02 22:57 | XMS RPT_ITS | CCD ---
Author Organization [facility] CliniSymi Care Team Providers Care Wired Sweatband Cutter Name Role Phone Dr. Domonique Guzman Primary Care Provider Dr. Domonique Guzman Referring Provider Ronak BATES, JANA Thrasher Attending Provider Amado BUILDING TRADES INSTRUCTOR, BUILDING TRADES INSTRUCTOR-Isac Bragg Attending Provider Domonique Guzman MD Primary Care Provider Dr. Domonique Guzman Primary Care Provider Dr. Domonique Guzman Referring Provider Jimmy Quintana MD Unavailable [phone] Domonique Guzman MD Primary Care Provider Jimmy Quintana MD Unavailable [phone] Dr. Domonique Guzman Primary Care Provider Dr. Domonique Guzman Referring Provider Amado BUILDING TRADES INSTRUCTOR, ROSELIA-Isac Bragg Attending Provider Domonique Guzman MD Primary Care Provider Jimmy Quintana MD Unavailable [phone] Jimmy Quintana MD Unavailable Domonique Guzman MD Primary Care Provider Cholo ASSOCIATE DIRECTOR FINANCIAL AID.GENERAL MAINTENANCE HELPER, Maryam Unavailable Taisha ASSOCIATE DIRECTOR FINANCIAL AID.KOSHER DIETARY SERVICE MANAGER, Sydnee Unavailable PROVIDER, UNKNOWN Referring Unavailable DOMONIQUE GUZMAN Primary Care Unavailable DOMONIQUE GUZMAN Primary Care Unavailable PROVIDER, UNKNOWN Referring Unavailable CHALO, TEJAL W Attending Unavailable TALAMPAS, DOMONIQUE D Primary Care Unavailable Taisha ASSOCIATE DIRECTOR FINANCIAL AID.KOSHER DIETARY SERVICE MANAGER, Sydnee Unavailable [place] BUILDING TRADES INSTRUCTOR, Mahsa Attending Unavailable Talampas, Domonique D Primary Care Unavailable Talampas, Domonique D Referring Unavailable [place] BUILDING TRADES INSTRUCTOR, Mahsa Attending Unavailable [place] BUILDING TRADES INSTRUCTOR, Mahsa Referring Unavailable Talampas, Domonique D Primary Care Unavailable Arjun CALLAHAN, Dr. Domonique Pritchard Primary Care Provider Dr. Domonique Guzman MD Referring Provider Amado BUILDING TRADES INSTRUCTOR-C, Mahsa Attending Provider [place] BUILDING TRADES INSTRUCTOR-C, Mahsa Referring Provider Taisha ASSOCIATE DIRECTOR FINANCIAL AID.KOSHER DIETARY SERVICE MANAGER, Sydnee Unavailable Emmanuel ASSOCIATE DIRECTOR FINANCIAL AID.GENERAL MAINTENANCE HELPER, Maryam Unavailable Emmanuel ASSOCIATE DIRECTOR FINANCIAL AID.GENERAL MAINTENANCE HELPER, Maryam Unavailable TALAMPAS, DOMONIQUE D Primary Care Unavailable TAISHA, SYDNEE Referring Unavailable TALAMPAS, DOMONIQUE D Primary Care Unavailable CARLTON PABON Attending Unavailabl e NOHEMY HILL Attending Unavailable TALAMPAS, DOMONIQUE D Primary Care Unavailable JIMMY QUINTAAN Referring Unavailable TALAMPAS, DOMONIQUE D Primary Care Unavailable QUINTANAJIMMY CROWE Attending Unavailable QUINTANA, JIMMY G Referring Unavailable TALAMPAS, DOMONIQUE D Primary Care Unavailable QUINTANAJUAN CROWEHEN G Referring Unavailable TALAMPAS, DOMONIQUE D Primary Care Unavailable TAISHA, SYDNEE Referring Unavailable TALAMPAS, DOMONIQUE D Primary Care Unavailable TALAMPAS, DOMONIQUE D Primary Care Unavailable QUINTANA JIMMY G Referring Unavailable TALAMPAS, DOMONIQUE D Primary Care Unavailable QUINTANA JIMMY G Attending Unavailable QUINTANA, JIMMY G Referring Unavailable TALAMPAS, DOMONIQUE D Primary Care Unavailable CARLTON PABON Attending Unavailabl e TALAMPAS, DOMONIQUE D Primary Care Unavailable TAISHASYDNEE Attending Unavailable SELF Referring Unavailable Arjun CALLAHAN, Dr. Domonique Pritchard Primary Care Provider [phone] Lalit CALLAHAN, Dr. Davies Emergency Provider Allergies Allergy Classification Reported Allergen(s) Allergy Type Date of Onset Reaction(s) Facility (20 sources) Codeine; Translations: [CODEINE] Drug Allergy 8 GI Upset [facility] Work Phone: (20 sources) levoFLOXacin; Translations: [LEVOFLOXACIN] Drug Allergy 1 Other: See Comments [facility] Work Phone: (7 sources) Naproxen Drug Allergy [address] [facility] (20 sources) EPINEPHrine; Translations: [EPINEPHRINE] Drug Allergy 0 Other: See Comments [facility] (20 sources) Naproxen; Translations: [NAPROXEN SODIUM] Drug Allergy 3 Other: See Comments [facility] Work Phone: (1 source) Codeine Drug Allergy [address] [facility] Repository (1 source) levoFLOXacin Drug Allergy [address] [facility] Repository (1 source) Naproxen Drug Allergy [address] [facility] Repository Medications Current Medications Medication Drug Class(es) Dates Sig (Normalized) Sig (Original) aspirin 81 mg oral tablet (20 sources) Platelet Aggregation Inhibitor, Nonsteroidal Anti-inflammatory Drug Start: 01-05-2022 take 81 mg by mouth once daily aspirin Active 81 mg SL/PO DAILY January 05, 2022 12:00am Comment on above: Take 81 mg by mouth once daily. cholecalciferol 0.125 mg oral capsule (20 sources) Vitamin D Start: 08-15-2018 Cholecalciferol (Vitamin D3) (Vitamin D3) 5,000 UNIT capsule Active 2000 U PO DAILY August 15, 2018 1:00am Start: 12-06-2017 End: 05-31-2024 take 2 capsules by mouth once daily Cholecalciferol, Vitamin D3, 2,000 unit cap Indications: Vitamin D deficiency Take 2 capsules by mouth once daily. 12/06/2017 05/31/2024 Discontinued take 1 capsule by mo ut once daily Cholecalciferol, Vitamin D3, (VITAMIN D-3) 50 mcg (2,000 unit) cap Take 2,000 Units by mouth once daily. Active Comment on above: Take 2 capsules by m out once daily. cyclobenzaprine hydrochloride 5 mg oral tablet (20 sources) Muscle Relaxant Start: 04-22-20 End: 05-31-20 take 1 tablet by mouth once daily at bedtime cyclobenzaprine (FLEXERIL) 5 mg tablet Take 1 tablet by mouth daily at bedtime. Take 5 mg at bedtime. Gradually increase to three times a day as tolerated 90 tablet 3 05/31/2024 Active Start: 08-13-2021 End: 04-22-2022 cyclobenzaprine (FLEXERIL) 5 mg tablet Take 5 mg at bedtime. Gradually increase to three times a day as tolerated 30 tablet 08/13/2021 04/22/2022 Discontinued Comment on above: Take 5 mg at bedtime . Gradually increase to three times a day as tolerated Take 1 tablet by ruben th daily at bedtime. Take 5 mg at bedtime. Gradually increase to three times a day as tolerated famotidine 20 mg oral tablet (20 sources) Histamine-2 Receptor Antagonist Start: End: take 1 tablet by mouth twice daily famotidine (PEPCID) 20 mg tablet Indications: History of gastritis Take 1 tablet by mouth two times a day. 180 tablet 3 12/20/2024 12/20/2025 Active Comment on above: Take 1 tablet by ruben th twice daily. iv contrast (will be provided with radiology test) (3 sources) Start: End: inject 1 dose intravenously once iv contrast (will be provided with radiology test) CTA Coronary. No IV access, insert saline lock prior to the sedation, infusion, injection for imaging exam. Discontinue saline lock post exam. If Pt. has a central line or IVAD, may access for administration according to line specific nursing protocol. Once exam is complete flush line and de-access according to line specific nursing protocol in the CT contrast administration guidelines link. 1 Each 0 12/24/2021 12/25/2021 Active Comment on above: CTA Coronary. No IV access, insert saline lock prior to the sedation, infusion, injection for imaging exam. Discontinue saline lock post exam. If Pt. has a central line or IVAD, may access for administration according to line specific nursing protocol. Once exam is complete flush line and de-access according to line specific nursing protocol in the CT contrast administration guidelines link. 24 hr metoprolol succinate 50 mg extended release oral tablet (20 sources) beta-Adrenergic Arnulfo Start: 023 End: 026 take 1 tablet by mouth once daily metoprolol succinate ER (TOPROL XL) 50 mg 24 hr tablet Take 1 tablet by mouth once daily. 90 tablet 3 10/04/2024 10/04/2025 Active Start: 08-03-2022 End: 10-14-2022 take 1 tablet by mouth once daily metoprolol succinate ER (TOPROL XL) 100 mg Take 1 tablet by mouth once daily. 90 tablet 3 08/03/2022 10/14/2022 Discontinued Start: 02-04-2022 take 1 tablet by ruben th once daily metoprolol succinate ER (TOPROL XL) 100 mg Take 1 tablet by mouth once daily. 30 tablet 5 02/04/2022 Active Start: 12-24-2021 End: 01-28-2022 metoprolol tartrate, short a cting, (LOPRESSOR) 50 mg tablet Take one 50 mg tablet the evening prior to the CTA examination, take another 50 mg tablet the morning of the CTA examination. 2 tablet 0 12/24/2021 01/28/2022 Discontinued Start: 10-28-2021 End: 10-14-2022 take 1 tablet by mouth once daily metoprolol succinate ER (TOPROL XL) 50 mg 24 hr tablet Take 1 tablet by mouth once daily. 90 tablet 3 10/14/2022 Active Start: 11-28-2020 End: 10-26-2021 take 1 tablet by mouth once daily metoprolol succinate ER (TOPROL XL) 50 mg 24 hr tablet Take 1 tablet by mouth once daily. 90 tablet 3 11/28/2020 10/26/2021 Discontinued Start: 03-26-2014 End: 09-08-2022 take 1 tablet by mouth once daily Metoprolol Succinate 50 mg tablet extended release 24 hr Active 50 mg PO DAILY September 08, 2022 9:32am Comment on above: Take 1 tablet by ruben th once daily. Take one 50 mg table t the evening prior to the CTA examination, take another 50 mg tablet the morning of the CTA examination. Multivitamin preparation (20 sources) Start: 09-03-2021 take 1 tablet by mouth once daily Multivitamin Active 1 TABLET PO DAILY September 03, 2021 11:06am Start: 09-03-2021 take 1 tablet by ruben th once daily Multivitamin Active 1 TABLET PO DAILY September 03, 2021 12:00am multivitamin (MU LTIPLE VITAMINS ORAL) Take by mouth. Active multivitamin (MU LTIPLE VITAMINS ORAL) Take by mouth. 0 Active Comment on above: Take by mouth. Multivitamin tablet (2 sources) Start: 09-03-19 Multivitamin tablet Active 1 {tbl} PO DAILY September 03, 2021 1:00am omeprazole 20 mg delayed release oral capsule (8 sources) Proton Pump Inhibitor Start: 12-13-19 End: 12-25-19 take 1 capsule by mouth once daily Omeprazole 20 mg capsule,delayed release(DR/EC) Active 20 mg PO DAILY December 19, 2021 12:00am Comment on above: Take 1 capsule by mo [facility] daily before breakfast. triamcinolone acetonide 1 mg/ml topical cream (2 sources) Corticosteroid Start: 01-04-20 triamcinolone acetonide (KENALOG) 0.1 % cream Indications: Allergic contact dermatitis due to metals Apply to affected area twice daily as needed. Do not use more than 5 days per week. Not for face, groin, or armpits. 30 g 1 01/03/2025 Active verapamil hydrochloride 120 mg extended release oral tablet (20 sources) Calcium Channel Arnulfo Start: 09-08-19 End: 12-21-19 take 1 tablet by mouth once daily Verapamil 120 mg tablet extended release Active 120 mg PO DAILY April 02, 2025 12:00am Start: 10-27-2023 End: 04-02-2025 take 1 capsule by mouth once daily Verapamil 180 mg capsule,ext rel. pellets 24 hr Discontinued 150 mg PO DAILY October 27, 2023 1:00am April 02, 2025 4:21pm Start: 09-02-2023 End: 09-01-2024 take 1 tablet by mouth once daily verapamil SR (CALAN SR) 120 mg CR tablet Take 1 tablet by mouth once daily. 90 tablet 3 09/02/2023 Active Start: 10-14-2022 End: 04-04-2023 take 1 tablet by mouth once daily verapamil SR (CALAN SR) 120 mg CR tablet Take 1 tablet by mouth once daily. 90 tablet 2 04/05/2023 Active Comment on above: [facility] Completed/Discontinued Medications Medication Drug Class(es) Dates Sig (Normalized) Sig (Original) Acetaminophen / diphenhydrAMINE (20 sources) Histamine-1 Receptor Antagonist End: 10-14-2022 acetaminophen/diph enhydramine (TYLENOL PM ORAL) Take by mouth. 10/14/2022 Discontinued End: 10-14-2022 acetaminophen/diphenhydramin e (TYLENOL PM ORAL) Take by mouth. 0 10/14/2022 Discontinued acetaminophen/di phenhydramine (TYLENOL PM ORAL) Take by mouth. 0 Active Comment on above: Take by mouth. estradiol 0.1 mg/ml vaginal cream (3 sources) Estrogen Start: 09-08-2022 End: 10-27-2023 Estradiol 0.01 % (0.1 mg/gram) cream Discontinued 0 VAGINAL .COMPLEX 42.5 2 September 08, 2022 1:00am October 27, 2023 2:33pm small amount as directed vaginal every other day X 4 weeks then twice a week; Start: 09-08-2022 Estradiol Acti ve 0 VAGINAL .COMPLEX 42.5 September 08, 2022 12:00am small amount as directed vaginal every other day X 4 weeks then twice a week; ibuprofen 800 mg oral tablet (3 sources) Nonsteroidal Anti-inflammatory Drug Start: 08-13-2021 End: 12-12-2021 take 1 tablet by mouth every eight hours as needed ibuprofen (MOTRIN) 800 mg tablet Take 1 tablet by mouth every 8 hours as needed for pain. Take with food. 30 tablet 08/13/2021 12/12/2021 Discontinued Comment on above: Take 1 tablet by ruben th every 8 hours as needed for pain. Take with food. MULTIVITAMIN ORAL (2 sources) Start: 09-03-2021 End: 01-11-2023 take 1 tablet by mouth once daily MULTIVITAMIN ORAL Take 1 tablet by mouth once daily. 0 09/03/2021 01/11/2023 Discontinued Start: 09-03-2021 take 1 tablet by ruben th once daily MULTIVITAMIN ORAL Take 1 tablet by mouth once daily. 0 09/03/2021 Active Comment on above: Take 1 tablet by ruben th once daily. nitroglycerin 0.3 mg sublingual tablet (12 sources) Nitrate Vasodilator Start: End: 08-24-2 022 take 1 tablet under the tongue once nitroglycerin sublingual (NITROQUICK) 0.3 mg SL tablet Dissolve 1 tablet under the tongue one time only for 1 dose. To be administered in Radiology for CTA exam 1 tablet 0 12/24/2021 04/22/2022 Discontinued Comment on above: Dissolve 1 tablet un jenna the tongue one time only for 1 dose. To be administered in Radiology for CTA exam ondansetron 4 mg oral tablet (9 sources) Serotonin-3 Receptor Antagonist Start: End: ondansetron (ZOFRAN) 4 mg tablet Take 1 tablet day prior to CT scan, [address] scan, 1 tablet day after the procedure 3 tablet 0 12/30/2021 04/22/2022 Discontinued Comment on above: Take 1 tablet day pr ior to CT scan, [address] scan, 1 tablet day after the procedure perflutren lipid microspheres 1.3 mL in NaCl (PF) 0.9% 10 mL injection (DEFINITY) (16 sources) Start: End: perflutren lipid microspheres 1.3 mL in NaCl (PF) 0.9% 10 mL injection (DEFINITY) rosuvastatin calcium 20 mg oral tablet (20 sources) HMG-CoA Reductase Inhibitor Start: End: take 1 tablet by mouth once daily at bedtime rosuvastatin (CRESTOR) 20 mg tablet Indications: Family history of coronary artery disease , Pure hypercholesterolemia Take 1 tablet by mouth daily at bedtime. 90 tablet 3 12/20/2024 02/21/2025 Discontinued Start: 09-20-2024 End: 09-21-2024 take 2 tablets by mouth once daily at bedtime rosuvastatin (CRESTOR) 10 mg tablet Indications: Family history of coronary artery disease , Pure hypercholesterolemia Take 2 tablets by mouth daily at bedtime. 30 tablet 09/20/2024 09/21/2024 Discontinued Start: 09-08-2024 End: 09-20-2024 take 1 tablet by mouth once daily at bedtime rosuvastatin (CRESTOR) 10 mg tablet Indications: Family history of coronary artery disease , Pure hypercholesterolemia TAKE 1 TABLET BY MOUTH ONCE DAILY AT BEDTIME 30 tablet 09/08/2024 09/20/2024 Discontinued (Adjust Sig - Block E-Cancel) Start: 09-02-2023 End: 09-01-2024 take 1 tablet by mouth once daily at bedtime rosuvastatin (CRESTOR) 10 mg tablet Indications: Family history of coronary artery disease , Pure hypercholesterolemia Take 1 tablet by mouth daily at bedtime. 90 tablet 3 09/02/2023 Active Start: 11-24-2022 End: 05-24-2023 take 1 tablet by mouth once daily at bedtime rosuvastatin (CRESTOR) 10 mg tablet Indications: Family history of coronary artery disease , Pure hypercholesterolemia Take 1 tablet by mouth daily at bedtime. 30 tablet 5 05/24/2023 Active Start: 12-31-2021 take 1 tablet by ruben th once daily at bedtime rosuvastatin (CRESTOR) 10 mg tablet Indications: Family history of coronary artery disease , Pure hypercholesterolemia Take 1 tablet by mouth daily at bedtime. 90 tablet 3 12/31/2021 Active Start: 12-31-2021 take 1 tablet by ruben th once daily at bedtime rosuvastatin (CRESTOR) 10 mg tablet Indications: Family history of coronary artery disease , Pure hypercholesterolemia Take 1 tablet by mouth daily at bedtime. 90 tablet 3 12/31/2021 Active Start: 12-31-2021 take 1 tablet by ruben th once daily at bedtime rosuvastatin (CRESTOR) 10 mg tablet Indications: Family history of coronary artery disease , Pure hypercholesterolemia Take 1 tablet by mouth daily at bedtime. 90 tablet 3 12/31/2021 Active Start: 12-31-2021 take 1 tablet by ruben th once daily at bedtime rosuvastatin (CRESTOR) 10 mg tablet Indications: Family history of coronary artery disease , Pure hypercholesterolemia Take 1 tablet by mouth daily at bedtime. 90 tablet 3 12/31/2021 Active Start: 12-31-2021 take 1 tablet by ruben th once daily at bedtime rosuvastatin (CRESTOR) 10 mg tablet Indications: Family history of coronary artery disease , Pure hypercholesterolemia Take 1 tablet by mouth daily at bedtime. 90 tablet 3 12/31/2021 Active Start: 12-31-2021 take 1 tablet by ruben th once daily at bedtime rosuvastatin (CRESTOR) 10 mg tablet Indications: Family history of coronary artery disease , Pure hypercholesterolemia Take 1 tablet by mouth daily at bedtime. 90 tablet 3 12/31/2021 Active Start: 12-31-2021 take 1 tablet by ruben th once daily at bedtime rosuvastatin (CRESTOR) 10 mg tablet Indications: Family history of coronary artery disease , Pure hypercholesterolemia Take 1 tablet by mouth daily at bedtime. 90 tablet 3 12/31/2021 Active Start: 09-03-2021 take 1 tablet by ruben th once daily Rosuvastatin (Crestor) 5 mg tablet Active 5 MG PO DAILY September 03, 2021 11:06am Start: 09-03-2021 take 2 tablets by mo uth at bedtime Rosuvastatin (Crestor) 5 mg tablet Active 10 mg PO AT BEDTIME September 03, 2021 1:00am Start: 12-31-2020 End: 12-12-2021 take 1 tablet by mouth once daily at bedtime rosuvastatin (CRESTOR) 10 mg tablet Take 1 tablet by mouth daily at bedtime. 90 tablet 3 12/31/2020 12/12/2021 Discontinued Comment on above: Take 1 tablet by ruben th daily at bedtime. 125 ml sodium chloride 9 mg/ml prefilled syringe (16 sources) Start: 11-28-2020 End: 02-27-2022 sodium chloride 0.9 % (flush) 10 mL (BD POSIFLUSH) sucralfate 1000 mg oral tablet (1 source) Aluminum Complex Start: 04-08-2021 End: 08-13-2021 take 1 tablet by mouth four times daily sucralfate (CARAFATE) 1 gram tablet Take 1 tablet by mouth four times daily. 60 tablet 04/08/2021 08/13/2021 Discontinued (Discontinued by Patient) Problems Active Problems Problem Classification Problem Date Documented Da te Episodic/Chronic Allergic reactions (5 sources) Contact dermatitis; Translations: [Unspecified contact dermatitis, unspecified cause] Onset: 5 06-06-2024 Episodic Cardiac dysrhythmias (20 sources) Palpitations; Translations: [Palpitations] Onset: 8 Resolved: 6 Episodic Conditions associated with dizziness or vertigo (4 sources) Orthostatic hypotension; Translations: [Dizziness and giddiness] 01-13-2022 Episodic Coronary atherosclerosis and other heart disease (3 sources) Acute coronary syndrome; Translations: [Acute ischemic heart disease, unspecified] Chronic Disorders of lipid metabolism (20 sources) Hyperlipidemia; Translations: [Hyperlipidemia, unspecified] Onset: 9 Resolved: 6 10-14-2015 Chronic E Codes: Fall (1 source) Fall on same level from slipping, tripping or stumbling ; Translations: [Fall on same level from slipping, tripping and stumbling without subsequent striking against object, initial encounter] 04-02-2025 Episodic Esophageal disorders (2 sources) Gastroesophageal reflux disease without esophagitis; Translations: [Gastro-esophageal reflux disease without esophagitis] 04-21-2023 Chronic Genitourinary symptoms and ill-defined conditions (20 sources) Blood in urine; Translations: [Hematuria, unspecified] Onset: 5 Resolved: 6 09-08-2022 Episodic Comment on above: Rx bactrim. Culture pending Heart valve disorders (20 sources) Mitral valve prolapse; Translations: [Nonrheumatic mitral (valve) prolapse] Onset: 1 Resolved: 2 11-06-2010 Chronic Immunizations and screening for infectious disease (20 sources) Patient encounter status; Translations: [Encounter for screening for COVID-19] Episodic Menopausal disorders (5 sources) Atrophic vaginitis; Translations: [Postmenopausal atrophic vaginitis] 09-08-2022 Chronic Comment on above: declines estrogen Neoplasms of unspecified nature or uncertain behavior (1 source) Neoplastic disease; Translations: [Neoplasm of unspecified behavior of bone, soft tissue, and skin] 04-16-2023 Episodic Nonspecific chest pain (20 sources) Chest pain; Translations: [Chest pain, unspecified] Onset: 6 Episodic Nutritional deficiencies (4 sources) Vitamin D deficiency; Translations: [Vitamin D deficiency, unspecified] Onset: 4 Chronic Osteoarthritis (2 sources) Osteoarthritis of joint of right hand; Translations: [Primary osteoarthritis, right hand] Chronic Other and unspecified benign neoplasm (1 source) Gastric polyp; Translations: [Polyp of stomach and duodenum] Episodic Other and unspecified benign neoplasm (3 sources) Dermatofibroma; Translations: [Other benign neoplasm of skin, unspecified] 04-16-2023 Episodic Other and unspecified benign neoplasm (1 source) Benign neoplasm of soft tissue; Translations: [Melanocytic nevi, unspecified] 11-22-2023 Episodic Other and unspecified benign neoplasm (3 sources) Senile angioma; Translations: [Hemangioma of skin and subcutaneous tissue] 11-22-2023 Episodic Other and unspecified benign neoplasm (2 sources) Multiple benign melanocytic nevi ; Translations: [Melanocytic nevi, unspecified] 06-06-2024 Episodic Other and unspecified benign neoplasm (1 source) Melanocytic nevi, unspecified; Translations: [Multiple benign nevi] Onset: 5 Episodic Other and unspecified benign neoplasm (1 source) Hemangioma of skin and subcutaneous tissue; Translations: [Siegel angioma] Onset: 5 Episodic Other and unspecified benign neoplasm (1 source) Other benign neoplasm of skin, unspecified; Translations: [Dermatofibroma] Onset: 5 Episodic Other bone disease and musculoskeletal deformities (1 source) Costal chondritis; Translations: [Chondrocostal junction syndrome [Tietze]] Episodic Other circulatory disease (20 sources) Raynaud's phenomenon; Translations: [Raynaud's syndrome without gangrene] Onset: 7 05-31-2017 Chronic Other circulatory disease (1 source) Raynaud's syndrome without gangrene; Translations: [Raynaud's phenomenon without gangrene] Onset: 7 Chronic Other circulatory disease (6 sources) H/O: heart disorder; Translations: [Personal history of other diseases of the circulatory system] 12-27-2021 Episodic Other circulatory disease (2 sources) Bruit; Translations: [Other specified symptoms and signs involving the circulatory and respiratory systems] Episodic Other connective tissue disease (2 sources) Fibromyalgia; Translations: [Fibromyalgia] Episodic Other connective tissue disease (1 source) Pain of bilateral hands; Translations: [Pain in right hand] Episodic Other connective tissue disease (2 sources) Trigger thumb of right hand; Translations: [Trigger thumb, right thumb] Episodic Other connective tissue disease (1 source) Pain in right heel; Translations: [Pain in right foot] 05-12-2023 Episodic Other connective tissue disease (1 source) Pain in right thumb; Translations: [Pain in right finger(s)] 08-13-2021 Episodic Other female genital disorders (1 source) Unspecified condition associated with female genital organs and menstrual cycle; Translations: [Other specified symptoms associated with female genital organs] 09-08-2022 Episodic Other female genital disorders (1 source) Other specified noninflammatory disorders of vagina; Translations: [Other specified noninflammatory disorders of vagina] Onset: 5 Episodic Other female genital disorders (1 source) Vaginal odor; Translations: [Other specified noninflammatory disorders of vagina] 10-30-2024 Episodic Other gastrointestinal disorders (4 sources) History of gastritis; Translations: [Personal history of other diseases of the digestive system] Episodic Other gastrointestinal disorders (1 source) Personal history of other diseases of the digestive system; Translations: [History of gastritis] Onset: 5 Episodic Other injuries and conditions due to external causes (1 source) Closed injury of head; Translations: [Unspecified injury of head, initial encounter] 04-02-2025 Episodic Other non-epithelial cancer of skin (6 sources) Basal cell carcinoma of face; Translations: [Basal cell carcinoma of skin of unspecified parts of face] Onset: 5 07-12-2023 Episodic Other non-traumatic joint disorders (1 source) Pain of left hip joint; Translations: [Pain in left hip] Episodic Other non-traumatic joint disorders (1 source) Pain in right knee; Translations: [Pain in joint, lower leg] Episodic Other non-traumatic joint disorders (2 sources) Multiple joint pain; Translations: [Pain in unspecified joint] Episodic Other non-traumatic joint disorders (2 sources) Hip pain; Translations: [Pain in left hip] Episodic Other non-traumatic joint disorders (3 sources) Hypermobility of joint; Translations: [Joint derangement, unspecified] Episodic Other non-traumatic joint disorders (1 source) Shoulder pain; Translations: [Pain in right shoulder] Episodic Other screening for suspected conditions (not mental disorders or infectious disease) (4 sources) Cancer cervix screening status; Translations: [Encounter for screening for malignant neoplasm of cervix] Onset: 4 Episodic Other skin disorders (4 sources) Seborrheic keratosis; Translations: [Other seborrheic keratosis] 04-16-2023 Episodic Other skin disorders (3 sources) Lentiginosis; Translations: [Other melanin hyperpigmentation] 11-22-2023 Episodic Other skin disorders (1 source) Skin tag; Translations: [Other hypertrophic disorders of the skin] 06-06-2024 Episodic Other skin disorders (1 source) Other melanin hyperpigmentation; Translations: [Lentigines] Onset: 5 Episodic Other skin disorders (1 source) Other seborrheic keratosis; Translations: [Seborrheic keratosis] Onset: 5 Episodic Residual codes; unclassified (9 sources) Family history of coronary arteriosclerosis; Translations: [Family history of ischemic heart disease and other diseases of the circulatory system] Episodic Residual codes; unclassified (1 source) Family history of malignant melanoma; Translations: [Family history of malignant neoplasm of other organs or systems] 11-22-2023 Episodic Residual codes; unclassified (1 source) Memory impairment; Translations: [Other amnesia] 05-31-2024 Episodic Residual codes; unclassified (2 sources) Family history of ischemic heart disease and other diseases of the circulatory system; Translations: [Family history of coronary artery disease] Onset: 4 Episodic Spondylosis; intervertebral disc disorders; other back problems (20 sources) Prolapsed lumbar intervertebral disc; Translations: [Other intervertebral disc displacement, lumbar region] Onset: 0 03-20-2020 Chronic Sprains and strains (1 source) Strain of neck muscle; Translations: [Strain of muscle, fascia and tendon at neck level, initial encounter] 04-02-2025 Episodic Syncope (6 sources) Near syncope; Translations: [Syncope and collapse] 12-27-2021 Episodic Unclassified (1 source) Patient encounter status 11-10-2024 Past or Other Problems Problem Classification Problem Date Documented Date Episodic/Chronic Abdominal pain (20 sources) Right upper quadrant pain; Translations: [Right upper quadrant pain] Onset: 06-12-2013 Resolved: 10-14-2015 04-21-2023 Episodic Mycoses (20 sources) Onychomycosis due to dermatophyte ; Translations: [Tinea unguium] Onset: 10-20-2007 Resolved: 06-16-2013 06-16-2013 Episodic Other aftercare (1 source) Encounter for therapeutic drug level monitoring; Translations: [Encounter for therapeutic drug monitoring] Onset: 06-01-2024 Episodic Other circulatory disease (1 source) Other specified symptoms and signs involving the circulatory and respiratory systems; Translations: [Bruit] Onset: 10-09-2024 Episodic Other connective tissue disease (20 sources) H/O: musculoskeletal disease; Translations: [Personal history of other diseases of the musculoskeletal system and connective tissue] Onset: 01-08-2015 01-08-2015 Episodic Other female genital disorders (20 sources) Vaginal discharge; Translations: [Other specified noninflammatory disorders of vagina] Onset: 01-08-2015 Resolved: 10-14-2015 10-14-2015 Episodic Other nutritional; endocrine; and metabolic disorders (20 sources) Overweight; Translations: [Overweight] Onset: 10-20-2007 Resolved: 10-14-2015 10-14-2015 Episodic Residual codes; unclassified (20 sources) Family history of ischemic heart disease; Translations: [Family history of ischemic heart disease and other diseases of the circulatory system] Onset: 04-27-2014 04-27-2014 Episodic Residual codes; unclassified (1 source) Other amnesia; Translations: [Memory impairment] Onset: 06-01-2024 Episodic Screening and history of mental health and substance abuse codes (2 sources) Encounter for screening for depression; Translations: [Encounter for screening examination for other mental health and behavioral disorders] Onset: 05-31-2024 Episodic Spondylosis; intervertebral disc disorders; other back problems (20 sources) Neck pain; Translations: [Cervicalgia] Onset: 10-20-2007 Resolved: 03-16-2014 12-09-2011 Episodic Results Test Name Value Interpretation Reference Range Facility [facility] 01-29-2025 CNCO Letter Text Normal [facility] CNOVon 01-03-2025 CNOV Office Visit (DERMMN ) JUSTINE BERGERON ([id number]) 1970 F Date Time Provider Department 01/03/25 3:40 PM RICOTTI, CARLTON NEO DERMMN During your visit today, we recorded the following information about you: Carlton Pabon MD 01/03/2025 4:53 PM Signed Est Patient Chief Complaint: Full body skin exam History of Present Ilness: Justine Bergeron is a 54 year old female Patient is here for: 1) Full body skin exam Lesions of concern on the right shoulder bilateral cheeks Duration: multiple months Denies itching, bleeding or pain Pertinent Past Medical History: History of skin cancer or atypical nevi: Yes BCC right mandible Mohs 07/12/2023 Specialty Problems None Pertinent Family medical history: History of melanoma Yes maternal great uncle Review of Systems: Constitutional: Denies fever, chills, night sweats, unintentional weight loss. Skin per HPI. No other new/concerning skin growth. Physical Exam: General: well appearing, of stated age, in no acute distress Neurology: alert and oriented times three Psychiatry: in a happy mood Skin: Guardado skin type: II Skin exam performed of face, scalp, ears, eyelids, lips, neck, chest, abdomen, back, bilateral upper extremities, hands, fingers, fingernails, bilateral lower extremities, feet, toes, toenails. Skin exam normal with the exception of: - Few scattered bright red dome-shaped papules on the trunk and extremities - Scattered light brown stellate macules on the face, shoulders, chest, and upper extremities - Scattered, evenly colored, round brown macules and papules with regular borders on the trunk and extremities - Numerous scattered skin-colored and brown, waxy, stuck-on papules and plaques on the trunk and extremities -Well healed scar(s) with no signs of recurrence or nodularity at sites of previous procedures. -Face with few yellow 2-4 mm lobulated papules with central dell Assessment and Plan: #Lentigines #Seborrheic keratoses #Siegel angiomas - Reassurance provided regarding the benign nature of these lesions. - Discussed that treatment considered cosmetic and not covered by insurance. #Multiple benign nevi - Complete skin exam performed today with no outlier lesions identified - Reassured patient of benign nature of these lesions. - Recommend monthly self skin exams. Return for lesions that are growing, changing or symptomatic. - Recommend daily photoprotection with broad-spectrum sunscreen, avoidance of sun during peak hours, and sun protective clothing. - Dermoscopy was used for physical examination of pigmented lesions during today?s office visit. #Personal history of non melanoma skin cancer No evidence of recurrence on exam. Continued monitoring. Regular skin exams discussed given increased risk of subsequent cutaneous malignancies. - Counseled patient on sun protection with SPF 30 or higher, sun protective clothing such as wide brimmed hats and long sleeves. Recommend avoiding midday sun (10 am- 3 pm). #Allergic contact dermatitis - Most likely allergen: Nickel -Reaction to ring (white gold). Has also previously reacted to costume jewelry/earings - Discussed etiology and avoidance of possible culprits - If no improvement with avoidance and gentle skin care, may consider patch testing - Recommended starting gentle skin care - instructions provided to patient - If want to wear ring occasionally, can use triamcinolone 0.1% ointment twice daily when needed. Do not use more than 5 days per week. Avoid use on face, groin, and axilla. Risks, benefits, and alternatives discussed with patient. #Photoaging - Discussed option for tretinoin 0.0.025% cream cream to be applied in the evening. Risks, benefits, and alternatives discussed with patient. Patient declines at this time. - Recommend daily sun protection using broad-spectrum sunscreen (at least SPF 30), photoprotective clothing, and other photoprotective measures, such as seeking shade when possible. Return to clinic 6 months or sooner if something concerning arises. The documentation for this note was completed by ROXANN Conner acting as scribe for Carlton Pabon MD. January 03, 2025 3:32 PM. Chapo Torres MD, MS PGY2 Dermatology Resident I agree with the Chief Complaint, ROS, and Past Histories independently gathered by the clinical retail support associate and the remaining scribed note accurately describes my personal service to the patient. Carlton Pabon MD January 03, 2025 Allergies As of Date: 01/03/2025 Noted Allergy Reaction LEVAQUIN (LEVOFLOXACIN) 06/24/2011 14 - Other: See Comments Comments: Numbness, palpitations ALEVE (NAPROXEN SODIUM) 05/18/2013 14 - Other: See Comments Comments: BP elevation CODEINE 10/20/2007 8 - GI Upset Comments: Heart pounding EPINEPHRINE 05/14/2020 14 - Other: See Comments Comme (more content not included)... Normal [facility] CNOVon 12-20-2024 CNOV Office Visit (CATHMN ) JUSTINE BERGERON ([id number]) 1970 F Date Time Provider Department 12/20/24 11:00 AM JIMMY QUINTANA CATHMN During your visit today, we recorded the following information about you: Pulse Respiration Blood pressure Weight 69/minute 14/minute 118/78 62.9 kg Height 1.524 m Jimmy Quintana MD 12/20/2024 11:03 AM Signed [facility] [place] [facility] Department of Cardiovascular Medicine SECTION OF INTERVENTIONAL CARDIOLOGY OUTPATIENT VISIT DATE December 20, 2024 OUTPATIENT VISIT TYPE ESTABLISHED PRIMARY CARE PHYSICIAN: Domonique Guzman [address] [place] [address] REFERRING PHYSICIAN: Jimmy Quintana [address] [facility] [address] CHIEF COMPLAINT: No chief complaint on file. HISTORY OF PRESENT ILLNESS: Ms. Bergeron is a 54 year old female who presents today for follow-up visit . She denies . PAST CARDIAC HISTORY: See HPI PAST MEDICAL HISTORY Diagnosis Date Anemia treated with iron in past Arthritis Displacement of intervertebral disc, site unspecified, without myelopathy cervical and lower back Family history of early CAD Fibromyalgia Heart murmur Mammographic microcalcification Mitral valve disorders(424.0) MVP MVP (mitral valve prolapse) 11/06/2010 Near syncope Other and unspecified hyperlipidemia 2019 told high age 22 on RX on and off in past Seizure (HCC) pt told absent seizure' during dental appointment no workup PAST SURGICAL HISTORY Procedure Laterality Date DELIVERY ONLY , low cervical COLONOSCOPY FLX DX W/COLLJ SPEC WHEN PFRMD 03/18/2021 ESOPHAGOGASTRODUODENOS COPY TRANSORAL DIAGNOSTIC 06/15/2013 EGD ESOPHAGOGASTRODUODENOS COPY TRANSORAL DIAGNOSTIC 03/18/2021 EYE SURGERY HX PAST SURGICAL HISTORY OF urethra stretching age 2 PAST SURGICAL HISTORY OF DANDC PAST SURGICAL HISTORY OF wisdom teeth RPR UMBILICAL HERNIA < 5 YRS REDUCIBLE 2000 Hernia repair, umbilical <5yr SOCIAL HISTORY Social History Tobacco Use Smoking status: Never Smokeless tobacco: Never Vaping Use Vaping status: Never Used Substance Use Topics Alcohol use: Yes Comment: 1-2 wine or beer a week Drug use: No FAMILY HISTORY Problem Relation Age of Onset Hypertension Mother Diabetes Mother Stroke Mother 62 carotid disease other (CABG) Mother 67 Cancer Father Heart Father 64 PA coronary stent Heart Brother 37 PA 3 stents Hypertension Brother other (Hemophelia) Brother Uterine Fibroids Brother Hypertension Maternal Grandmother other (Myocardial infarction) Maternal Grandfather 54 Diabetes Maternal Grandfather Breast Cancer Paternal Grandmother other (Myocardidal infarction) Paternal Grandmother 80 3 stents other (brain bleeding) Paternal Grandmother other (cousins) Other Mi' age 41-42 Maternal ALLERGIES: ALLERGIES Allergen Reactions Levaquin [Levofloxa* Other: See Comments Numbness, palpitations Aleve [Naproxen Sod* Other: See Comments BP elevation Codeine GI Upset Heart pounding Epinephrine Other: See Comments Heart races. Heart palpitations. MEDICATIONS: Current Outpatient Medications Medication Sig metoprolol succinate ER (TOPROL XL) 50 mg 24 hr tablet Take 1 tablet by mouth once daily. rosuvastatin (CRESTOR) 20 mg tablet Take 1 tablet by mouth daily at bedtime. verapamil SR (CALAN SR) 120 mg CR tablet Take 1 tablet by mouth once daily. Cholecalciferol, Vitamin D3, (VITAMIN D-3) 50 mcg (2,000 unit) cap Take 2,000 Units by mouth once daily. famotidine (PEPCID) 20 mg tablet Take 1 tablet by mouth two times a day. cyclobenzaprine (FLEXERIL) 5 mg tablet Take 1 tablet by mouth daily at bedtime. Take 5 mg at bedtime. Gradually increase to three times a day as tolerated aspirin 81 mg cap Take 81 mg by mouth once daily. multivitamin (MULTIPLE VITAMINS ORAL) Take by mouth. No current facility-administered medications for this visit. REVIEW OF SYSTEMS: PHYSICAL EXAMINATION: LMP 02/07/2024 CARDIOVASCULAR MEDICINE TESTING: Last EKG Result Conclusion EKG Collected: 09/22/2024 7:20 PM (Final result) Impression: NORMAL SINUS RHYTHM NORMAL ECG No STEMI Confirmed by TEJAL ISABEL MD ([id number]) on 09/22/2024 7:29:15 PM IMPRESSION: Ms. Bergeron is a 54 year old female last seen 09/23 with SVT and atyp c/p, feeling better but w wt gain -> CUS, MIBI and early f/u for wt loss Palp x 20 yrs, often break w cough, neg Holter; normal TTE + fm h/o early CAD occ noctural or pleurtic c/p Raynaud's seroneg arthritis ? Fibromyalgia Hb 13.0 Cr 0.7 CRP <0.3 LDL 74 zio 01/18 4 short bursts of SVT CTA 50% mid LAD only TODAY Better diet, lost wt Planning to get TM Brings in picture of well demarcated hand redness which was transient and not related to (more content not included)... Normal [facility] Comprehensive metabolic 2000 panelon 12-19-2024 Albumin [Mass/Vol] 4.3 g/dL Normal 3.9-4.9 [facility] Comment on above: Order Comment: Christian sears Type: BLOOD SPECIMENOrdering Facility: [facility] Address: [address] [place] [address] Performed By: #### 2 4323-8, 24595-4 ####[facility] LABCLIA [id number] [address] [place] ALP [Catalytic activity/Vol] 48 U/L Normal 34-123 [facility] Comment on above: Order Comment: Treei renu Type: BLOOD SPECIMENOrdering Facility: [facility] Address: [address] [place] [address] Performed By: #### 2 4323-8, 98451-5 ####[facility] LABCLIA [id number] [place] [address] [place] ALT [Catalytic activity/Vol] 20 U/L Normal 7-38 [facility] Comment on above: Order Comment: Speci men Type: BLOOD SPECIMENOrdering Facility: [facility] Address: [address] [place] [id number] Performed By: #### 2 4323-8, 73861-2 ####[facility] LABCLIA [id number] [address] [address] [place] Anion gap [Moles/Vol] 10 mmol/L Normal 8-15 [facility] Comment on above: Order Comment: Speci men Type: BLOOD SPECIMENOrdering Facility: [facility] Address: [address] [place] [address] Performed By: #### 2 4323-8, 32247-2 ####[facility] LABCLIA [id number] [place] [id number] [place] AST [Catalytic activity/Vol] 34 U/L Normal 13-35 [facility] Comment on above: Order Comment: Speci men Type: BLOOD SPECIMENOrdering Facility: [facility] Address: [address] [place], [place] [id number] Performed By: #### 2 4323-8, 02727-9 ####[facility] LABCLIA [id number] [place] [id number] [place] Bilirubin [Mass/Vol] 0.6 mg/dL Normal 0.2-1.3 [facility] Comment on above: Order Comment: Speci men Type: BLOOD SPECIMENOrdering Facility: [facility] Address: [address] [place], [place] [address] Performed By: #### 2 4323-8, 02775-6 ####[facility] LABCLIA [id number] [address] [address] [place] Calcium [Mass/Vol] 9.6 mg/dL Normal 8.5-10.2 [facility] Comment on above: Order Comment: Speci men Type: BLOOD SPECIMENOrdering Facility: [facility] Address: [address] [place], [place] [id number] Performed By: #### 2 4323-8, 23184-7 ####[facility] LABCLIA [id number] [place] [id number] [place] Chloride [Moles/Vol] 104 mmol/L Normal 98-107 [facility] Comment on above: Order Comment: Speci men Type: BLOOD SPECIMENOrdering Facility: [facility] Address: [address] [place] [address] Performed By: #### 2 4323-8, 89805-7 ####[facility] LABIA [id number] [place] [address] [place] CO2 [Moles/Vol] 28 mmol/L Normal 22-30 [facility] Comment on above: Order Comment: Speci men Type: BLOOD SPECIMENOrdering Facility: [facility] Address: [address] [place] [address] Performed By: #### 2 4323-8, 66120-0 ####[facility] LABIA [id number] [address] [place] Creatinine [Mass/Vol] 0.67 mg/dL Normal 0.58-0.96 [facility] Comment on above: Order Comment: Speci men Type: BLOOD SPECIMENOrdering Facility: [facility] Address: [address] [place] [address] Performed By: #### 2 4323-8, 98176-1 ####[facility] [id number] [place] [address] [place] Creatinine and Glomerular filtration rate.predicted panel (S/P/Bld) 104 mL/min/1.73m??? Normal >=60 [facility] Comment on above: Order Comment: Speci men Type: BLOOD SPECIMENOrdering Facility: [facility] Address: [address] [place] [address] Result Comment: Radha mated Glomerular Filtration Rate (eGFR) is calculated using the 2020 CKD-EPI creatinine equation. This equation utilizes serum creatinine, sex, and age as parameters. The creatinine assay has traceable calibration to isotope dilution-mass spectrometry. Refer to KDIGO guidelines for clinical interpretation. In patients with unstable renal function, e.g. those with acute kidney injury, the eGFR may not accurately reflect actual GFR. Performed By: #### 2 4323-8, 16726-6 ####[facility] LABCLIA [id number] [facility] [id number] [place] [address] [place] Glucose [Mass/Vol] 85 mg/dL Normal 74-99 [facility] Comment on above: Order Comment: Christian sears Type: BLOOD SPECIMENOrdering Facility: [facility] Address: [address] [place] [address] Result Comment: The [place] Diabetes Association (ADA) provides guidance for cutoff values for fasting glucose and random glucose. The ADA defines fasting as no caloric intake for at least 8 hours. Fasting plasma glucose results between 100 to 125 mg/dL indicate increased risk for diabetes (prediabetes). Fasting plasma glucose results greater than or equal to 126 mg/dL meet the criteria for diagnosis of diabetes. In the absence of unequivocal hyperglycemia, results should be confirmed by repeat testing. In a patient with classic symptoms of hyperglycemia or hyperglycemic crisis, random plasma glucose results greater than or equal to 200 mg/dL meet the criteria for diagnosis of diabetes. Reference: Standards of Medical Care in Diabetes 2016, [place] Diabetes Association. Diabetes Care. 2016.39(Suppl 1). Performed By: #### 2 4323-8, 21201-5 ####[facility] LABCLIA [id number] [facility] VizurySUTTER SOLANO MEDICAL CENTERK [id number] [place] [address] [place] Potassium [Moles/Vol] 3.8 mmol/L Normal 3.7-5.1 [facility] Comment on above: Order Comment: Christian sears Type: BLOOD SPECIMENOrdering Facility: [facility] Address: [address] [place] [address] Performed By: #### 2 4323-8, 12744-5 ####[facility] LABCLIA [id number] [facility] [id number], [place] [address] [place] Protein [Mass/Vol] 6.8 g/dL Normal 6.3-8.0 [facility] Comment on above: Order Comment: Speci men Type: BLOOD SPECIMENOrdering Facility: [facility] Address: [address] [place], [place] [address] Performed By: #### 2 4323-8, 17730-1 ####[facility] LABCLIA [id number] [address] [place] [address] [place] Sodium [Moles/Vol] 142 mmol/L Normal 136-144 [facility] Comment on above: Order Comment: Speci men Type: BLOOD SPECIMENOrdering Facility: [facility] Address: [address] [place] [address] Performed By: #### 2 4323-8, 95596-5 ####[facility] LABIA [id number] [place] [id number] [place] Urea nitrogen [Mass/Vol] 16 mg/dL Normal 7-21 [facility] Comment on above: Order Comment: Speci men Type: BLOOD SPECIMENOrdering Facility: [facility] Address: [address] [place] [address] Performed By: #### 2 4323-8, 47485-7 ####[facility] LABIA [id number] [address] [place] [address] [place] Lipid 1996 panelon 5 Cholesterol [Mass/Vol] 150 mg/dL Normal <[address] [facility] Comment on above: Order Comment: Speci men Type: BLOOD SPECIMENOrdering Facility: [facility] Address: [address] [place], [place] [address] Result Comment: <200 mg/dL, Desirable 200-239 mg/dL, Borderline high >239 mg/dL, High Performed By: #### 2 4323-8, 26363-5 ####[facility] LABIA [id number] [address] [address] [place] Cholesterol in HDL [Mass/Vol] 63 mg/dL Normal >39 [facility] Comment on above: Order Comment: Speci men Type: BLOOD SPECIMENOrdering Facility: [facility] Address: [address] [place] [address] Result Comment: 40-5 9 mg/dL, Acceptable >59 mg/dL, High: Negative risk factor for coronary heart disease <40 mg/dL, Low: Positive risk factor for coronary heart disease Performed By: #### 2 4323-8, 10719-1 ####[facility] LABCLIA [id number] [place] [id number] [place] Cholesterol in LDL [Mass/Vol] 76 mg/dL Normal <100 [facility] Comment on above: Order Comment: Speci men Type: BLOOD SPECIMENOrdering Facility: [facility] Address: [address] [place] [address] Result Comment: <100 mg/dL, Optimal 100-129 mg/dL, Near optimal/above optimal 130-159 mg/dL, Borderline high 160-189 mg/dL, High >189 mg/dL, Very high Secondary prevention optimal LDL Cholesterol levels are recommended to be <70 mg/dL LDL cholesterol is calculated using the Rosado-NIH equation. Performed By: #### 2 4323-8, ####[facility] LABCLIA [id number] [address] [place] [facility] Cholesterol in LDL/Cholesterol in HDL [Mass ratio] 1.21 {ratio} Normal <2.54 [facility] Comment on above: Order Comment: Speci men Type: BLOOD SPECIMENOrdering Facility: [facility] Address: [address] [place] [address] Result Comment: [place] johnce: 1. National Cholesterol Education Program ATP III Guideline At-A-Glance Quick Desk Reference: National Heart, Lung, and Blood [place]. National Institutes of Health. 2001: NIH Publication No. 01-3305. 2. An International Atherosclerosis Society position paper: global recommendations for the management of dyslipidemia: executive summary, Atherosclerosis. 2014: 232(2):410-413. Performed By: #### 2 4323-8, 23441-5 ####[facility] LABCLIA [id number] [address] [address] [place] Cholesterol in VLDL [Mass/Vol] 7 mg/dL Normal <30 [facility] Comment on above: Order Comment: Speci men Type: BLOOD SPECIMENOrdering Facility: [facility] Address: [address] [place] [address] Performed By: #### 2 4323-8, 79044-3 ####[facility] LABCLIA [id number] [facility] [address] [place] [address] [place] Cholesterol non HDL [Mass/Vol] 87 mg/dL Normal <130 [facility] Comment on above: Order Comment: Speci men Type: BLOOD SPECIMENOrdering Facility: [facility] Address: [address] [place] [address] Result Comment: <130 mg/dL, Optimal 130-159 mg/dL, Near optimal/above optimal 160-189 mg/dL, Borderline high 190-219 mg/dL, High >219 mg/dL, Very high Secondary prevention optimal non HDL Cholesterol levels are recommended to be <100 mg/dL Performed By: #### 2 4323-8, ####[facility] LABCLIA [id number] [facility] [place] [address] [place] Cholesterol.total/Chol esterol in HDL [Mass ratio] 2.38 {ratio} Normal <5.10 [facility] Comment on above: Order Comment: Speci men Type: BLOOD SPECIMENOrdering Facility: [facility] Address: [address] [place] [address] Performed By: #### 2 4323-8, ####[facility] LABCLIA [id number] [facility] [address] [place] [address] [place] FASTING TIME 12 hrs Normal [facility] Comment on above: Order Comment: Speci men Type: BLOOD SPECIMENOrdering Facility: [facility] Address: [address] [place] [address] Performed By: #### 2 4323-8, 82410-0 ####[facility] LABCLIA [id number] [place] [id number] [place] Triglyceride [Mass/Vol] 49 mg/dL Normal <150 [facility] Comment on above: Order Comment: Speci men Type: BLOOD SPECIMENOrdering Facility: [facility] Address: [address] [place] [address] Result Comment: <150 mg/dL, Normal 150-199 mg/dL, Borderline high 200-499 mg/dL, High >499 mg/dL, Very high Performed By: #### 2 4323-8, 27615-0 ####[facility] LABCLIA [id number] [place] [address] [place] SCREENING W TOMOon 11-20 [place] SCREENING W PAULINO * * *Final Report* * * DATE OF EXAM: Nov 20 2024 2:34PM [id number] [id number] - [place] SCREENING W PAULINO / PROCEDURE REASON: Encounter for screening mammogram for breast cancer * * * * Physician Interpretation * * * * RESULT: [place] [address] [place] [address] #[id number] - [place] SCREENING W PAULINO HISTORY: 54 year-old patient seen for screening. Patient is asymptomatic in both breasts. Patient states no personal history of breast cancer. The patient has a family history of breast cancer. COMPARISON STUDIES: The present examination has been compared to prior imaging studies dated 01/23/2020 (ultrasound), 01/23/2020 (mammogram), 06/12/2021 (mammogram), 06/30/2022 (mammogram) and 11/11/2023 (mammogram). MAMMOGRAM TECHNIQUE: The study was acquired using full field digital technology and interpreted from soft copy. Digital Breast Tomosynthesis (DBT) images were obtained and used to assist in the interpretation of this examination. MAMMOGRAM FINDINGS: The breasts are heterogeneously dense, which may obscure small masses. No suspicious masses, calcifications or other abnormalities are seen in either breast. There are no significant interval changes. IMPRESSION: There is no mammographic evidence of malignancy in either breast. Routine screening mammogram is recommended. Annual mammogram will be due in 1 year. BI-RADS Category 1: Negative RISK: Based on the Tyrer-Cuzick (TC) risk assessment model, this patient has a 16.5% lifetime risk of developing breast cancer, meaning they are at average risk for developing breast cancer. However, this is only an estimate based on available history provided on the patient's questionnaire. We encourage all patients to talk with their providers about these results, further recommendations for managing breast health, and appropriate supplemental screening options if the patient has dense breast tissue. Interpreting Radiologist: Eddie Mackay M.D. Electronically signed on: 11/22/2024 Wire Brusher: COY Transcribe Date/Time: Nov 20 2024 2:25P Dictated by: EDDIE MAKCAY MD This examination was interpreted and the report reviewed and electronically signed by: EDDIE MACKAY MD on Nov 22 2024 9:17PM EST [id number] Normal [facility] Genital Culture Comprehensiv joey 11-02-2024 VAC Reason for Exam: vaginal irritation Normal vaginal kuldeep isolated. No yeast, Gardnerella, Neisseria or beta-hemolytic Streptococcus isolated. Normal [facility] Comment on above: Performed By: #### Price 100.3200, M100.1999 #### [facility] [address] [place], [place], [address] Genital cultureOrdered By: Price Fischer on 10-30-2024 Genital Culture Neisseria or beta-hemolytic Streptococcus isolated. [facility] Gram Stainon 10-30-2024 GS Reason for Exam: vaginal irritation Gram Stain No organisms seen No cells seen Normal [facility] Comment on above: Performed By: #### Price 100.3200, M100.1999 #### [facility] [address] [place], [place], [address] Gram stainOrdered By: Mahsa Fischer on 10-30-2024 Microscopic observation Gram stain Nom (Unsp spec) 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 Complaint: Annual Call Center Agent Required: No Is patient in pain?: No Allergies naproxen (From Aleve) Adverse Reaction (Severe, Verified 10/30/24 08:20) Tachycardia codeine Adverse Reaction (Verified 10/30/24 08:20) Vomiting levofloxacin (From Levaquin) Adverse Reaction (Verified 10/30/24 08:20) Other Medications ???Medication ???Instructions ???Recorded ???Confirmed ???Type Cholecalciferol (Vitamin D3) 2,000 unit PO DAILY 08/15/1810/30 History [Vitamin D3] multivitamin 1 tab PO DAILY 09/03/21 10/30/24 H istory rosuvastatin 5 mg tablet (Crestor) 10 mg PO QHS 09/03/21 10/30/24 H istory omeprazole 20 mg capsule,delayed 20 mg PO DAILY 12/19/21 10/30/24 H istory release aspirin 81 mg PO/SL DAILY 01/05/22 5 History metoprolol succinate 50 mg 100 mg PO DAILY 09/08/22 10/30/24 History tablet,extended release 24 hr verapamil 180 mg 24 hr 150 mg PO DAILY 10/27/23 10/30/24 History capsule,extended release Is last menstrual period known: No Post menopausal: Yes Patient : No : No PFSH Medical History GERD (gastroesophageal reflux disease) Fibromyalgia Mitral valve prolapse Hyperlipemia Herniated lumbar intervertebral disc Surgical History H/O dilation and curettage History of delivery History of hernia repair Family History Other Diabetes Heart disease Hypertension Social History household members: family number of children: 1 current occupational status: employed current occupation: [employer] pets and animals: Yes Smoking Status: Never smoker second hand exposure: No alcohol intake: current alcohol intake frequency: a few times a month Alcohol type: beer and wine substance use type: does not use seatbelt use: always do you feel safe at home: Yes additional social history: - Tello History 2 Elective abortions Hx Para 1 Spontaneous abortions Hx # Term Pregnancies Ectopic pregnancies Hx # Pregnancies Multiple births # of living children 1 Past Pregnancies Del. Date Name GA/Weeks Outcome Route Bth Weight Gen Labor Lgth Anesthesia Del Locatn Provider FOB Unknown 01/1997- Ollie Sr live - full term HPI Encounter for routine gynecological examination Details: JUSTINE BERGERON is a 54 year old who presents for annual exam. Noting off and on vaginal odor. Does wear a liner daily. Thinks last menses was May, and maybe March prior to that. Some mild hot flashes. Last PAP: 2021 History of abnormal PAP: Last mammogram: yearly at PCP History of abnormal mammogram: no Colon cancer screenin Other preventative health care screenings: Arjun Female Reproductive History Questions: metorrhagia: No, sexually active: Yes, dyspareunia: No and PCB: No Menopausal Treatment: No HRT, No Vaginal Estrogen, No Osphena, No OTC treatments and No prescription non-hormonal treatment ROS Const Constitutional: Denies fatigue, weight gain or weight loss Cardio Card: Denies chest pain Resp Resp: Denies cough or dyspnea on exertion GI GI: Denies abdominal pain, bloating, change in stool character, constipation or vomiting : Reports as per HPI; Denies difficulty voiding, pelvic pain, urinary frequency, urinary incontinence, urinary urgency, vaginal discharge or vaginal pruritus Exam Const General: cooperative, healthy appearing, no acute distress and well developed Orientation: alert, oriented to person and oriented to place HENDE Head: normal to inspection Neck Neck: normal visual inspection Thyroid: thyroid normal Lymphatic: no lymphadenopathy noted Chest Breast inspection: normal inspection of the breasts and normal inspection of the axillae Breast palpation: normal palpation of the breasts, normal palpation of the axillae and no axillary lymphadenopathy Resp Effort Inspection: normal respiratory effort GI Palpation: soft, no masses and nontender Rectal Exam: deferred External Female Exam: normal external appearance and normal ap (more content not included)... Normal [facility] US CAROTID ARTERIES TELMA [facility]AS LABon 10-09-2024 US CAROTID ARTERIES [facility] Non-Invasive Vascular Laboratory [facility] Carotid Duplex Bilateral/Complete Date of service/time: 10/09/2024 12:20:47 PM Name: MRS. JUSTINE BERGERON Date of : 1970 Age: 54 years Gender: F Clinical Indication Follow-up study on a patient with known carotid disease. TECHNIQUE -------- A carotid duplex ultrasound examination was performed, including grayscale imaging and color Doppler and spectral Doppler examination of the below mentioned arteries. FINDINGS -------- RIGHT SIDE Common carotid artery: Origin: PSV: 84 cm/s. EDV: 27 cm/s. Proximal: PSV: 100 cm/s. EDV: 25 cm/s. Mid: PSV: 87 cm/s. EDV: 30 cm/s. Distal: PSV: 84 cm/s. EDV: 29 cm/s. Internal carotid artery: Origin: PSV: 74 cm/s. EDV: 28 cm/s. Proximal: PSV: 96 cm/s. EDV: 36 cm/s. Mid: PSV: 84 cm/s. EDV: 32 cm/s. Distal: PSV: 60 cm/s. EDV: 24 cm/s. ICA/CCA Ratio: 1.1 External carotid artery: Origin: PSV: 84 cm/s. EDV: 18 cm/s. Subclavian artery: Origin: PSV: 137 cm/s. EDV: 0 cm/s. Mild homogeneous plaque at origin. Innominate artery: PSV: 109 cm/s. EDV: 14 cm/s. Vertebral artery: PSV: 35 cm/s. EDV: 14 cm/s. LEFT SIDE Common carotid artery: Proximal: PSV: 100 cm/s. EDV: 30 cm/s. Mid: PSV: 97 cm/s. EDV: 29 cm/s. Distal: PSV: 70 cm/s. EDV: 26 cm/s. Internal carotid artery: Origin: PSV: 75 cm/s. EDV: 22 cm/s. Proximal: PSV: 76 cm/s. EDV: 36 cm/s. Mid: PSV: 95 cm/s. EDV: 40 cm/s. Distal: PSV: 69 cm/s. EDV: 26 cm/s. Mild heterogeneous plaque at origin. ICA/CCA Ratio: 1.1 External carotid artery: Origin: PSV: 65 cm/s. EDV: 18 cm/s. Subclavian artery: Proximal: PSV: 116 cm/s. EDV: 0 cm/s. Vertebral artery: PSV: 55 cm/s. EDV: 22 cm/s. IMPRESSION Please note: the new carotid interpretation criteria are used as recommended by Intersocietal Accreditation Commission. RIGHT SIDE Internal carotid artery: Normal study. Vertebral artery: Patent and antegrade flow noted. Innominate artery: Patent. Subclavian artery: Plaque visualized without evidence of hemodynamically significant stenosis. LEFT SIDE Internal carotid artery: <50% stenosis consistent with mild carotid artery disease. Vertebral artery: Patent and antegrade flow noted. Subclavian artery: Patent. Technologist: Deja Xavier RVT, [facility] Ordering physician: JIMMY QUINTANA Interpreting physician: Aguila Crowley MD, TOMAS Final CC [employer] [facility] Image : [id number] See Link below for Image Normal [facility] CARDIAC PERF STRESS/EXERC ISEon 10-02-2024 [place] CARDIAC PERF STRESS/EXERCISE * * *Final Report* * * DATE OF EXAM: Oct 02 2024 9:58AM SIOBHAN 0004 - [place] CARDIAC PERF STRESS/EXERCISE / PROCEDURE REASON: * * * * Physician Interpretation * * * * Stress Candy Supervisor Report: [facility] Date of service: 10/02/2024 8:05:06 AM Supervising physician: Krysta Willis MD PATIENT: Name: MRS. JUSTINE BERGERON Age: 54 years Gender: F The supervising physician was in the department and immediately available. * * * Final * * * ------ PATIENT: Name: MRS. JUSTINE BERGERON Age: 54 years Gender: F CONCLUSIONS: 1. SPECT Perfusion Study: Normal. 2. There is no scintigraphic evidence for inducible ischemia. 3. No evidence of scarred myocardium. 4. Left ventricle is normal in size. The left ventricle systolic function is hyperdynamic. 5. This is a low risk scan. LVEF % 84 Prior Study Comparison No prior nuclear cardiology exam available for comparison. Nuclear Med Report:1-Day Gated SPECT Myocardial Perfusion with Exercise Stress: Myocardial perfusion imaging was performed at rest 30 to 60 minutes following the IV injection of the radiotracer. One minute prior to peak exercise, the patient was injected IV with the radiotracer. Gated post stress tomographic imaging was performed 10 to 20 minutes later. See administered radiotracer and doses below. [facility] Date of service: 10/02/2024 8:05:06 AM Ordering Physician: JIMMY QUINTANA. Requesting Physician: Indication: Assessment for suspected CAD Interpreting physician: Meghna Barry MD Height: 152.40 cm BSA: 1.68 m? Weight: 66.68 kg BMI: 28.7 kg/m? Exam Type: Rest Stress Radiopharm: Tc-99m Tetrofosmin Tc-99m Tetrofosmin Dosage(mCi): 14.1 34.5 Atten Correction: not performed not performed Stress Agent: Treadmill Resting Blood Press: 142/80 mmHg Image Quality The overall study imaging quality was deemed to be good. FINDINGS: LVEF: 84 % LEFT VENTRICLE The left ventricle is normal in size. Left ventricular systolic function is hyperdynamic. Stress Test Findings: There is no scintigraphic evidence for inducible ischemia. There is no evidence of scarring. * * * Final * * * ------ Stress ECG Report: [facility] Date of service: 10/02/2024 8:05:06 AM Ordering physician: JIMMY QUINTANA ehs specialist: [employer] Associate: Myranda Reyes Interpreting physician: Krysta Willis MD Patient name: MRS. JUSTINE BERGERON Age: 54 years Gender: F Height: 152.40 cm BSA: 1.68 m? Weight: 66.68 kg BMI: 28.7 kg/m? Indication: Encounter for screening for cardiovascular disorders Stress ECG Conclusion: Conclusion: Abnormal due to abnormal ST depression (>= 2.0 mm) during stress and abnormal ST Depression (<2.0 mm) after stress, and abnormal Fatima treadmill score Stress ECG Summary: The patient's resting heart rate was 67 bpm and blood pressure was 142/80 mmHg. The patient exercised according to the Cullen protocol. The estimated end-exercise MET level achieved using the FRIEND equation * * * was 6.8, which is within the 50th to 75th percentile for age and sex. The estimated end-exercise MET level achieved using the previous ACSM equation was 8.1. The test was terminated due to end of protocol and the total exercise time was 7 minutes and 0 seconds. Other symptoms during the test included SOB. The maximum heart rate was 162 bpm, which is 98% of the predicted heart rate for age. This is an adequate heart rate response. Peak blood pressure was 176/94 mmHg. The double product achieved was [address]. Medications: Last Used ASPIRIN PEPCID METOPROLOL CRESTOR CALAN Resting ECG: Normal Sinus Rhythm Symptoms at rest: No symptoms Exercise Protocol: Cullen Stress Exercise Table: +-----+ +--- -----+ +---+- --+---+----+----+ Stage Speed (MPH) Grade(%) Time (min) HR SYS AVERY RPE METS +-----+ +--- -----+ +---+- --+---+----+----+ 1 1.7 10.0 3.0 141 164 84 13.0 4.2 +-----+ +--- -----+ +---+- --+---+----+----+ 2 2.5 12.0 6.0 155 172 80 15.0 6.1 +-----+ +--- -----+ +---+- --+---+----+----+ +-----+ +--- ------+ +---+ ---+---+----+----+ Speed (MPH) Grade (%) Time (min) HR SYS AVERY RPE METS +-----+ +--- ------+ +---+ ---+---+----+----+ Final 3.4 14.0 7.00 162 176 94 16.5 6.8 +-----+ +--- ------+ +---+ ---+---+----+----+ Recovery Table: +------+ +--- +---+---+ Stage Time (min) HR SYS AVERY +------+ +--- +---+---+ 1 1.0 146 1 (more content not included)... Normal [facility] Heart Perfusion W multipl e states of exerciseon 10-02-2024 * * *Final Report* * * DATE OF EXAM: Oct 02 2024 9:58AM SIOBHAN 0004 - [place] CARDIAC PERF STRESS/EXERCISE / PROCEDURE REASON: * * * * Physician Interpretation * * * * Stress Candy Supervisor Report: [facility] Date of service: 10/02/2024 8:05:06 AM Supervising physician: Krysta Willis MD PATIENT: Name: MRS. JUSTINE BERGERON Age: 54 years Gender: F The supervising physician was in the department and immediately available. * * * Final * * * ------ PATIENT: Name: MRS. JUSTINE BERGERON Age: 54 years Gender: F CONCLUSIONS: 1. SPECT Perfusion Study: Normal. 2. There is no scintigraphic evidence for inducible ischemia. 3. No evidence of scarred myocardium. 4. Left ventricle is normal in size. The left ventricle systolic function is hyperdynamic. 5. This is a low risk scan. LVEF % 84 Prior Study Comparison No prior nuclear cardiology exam available for comparison. Nuclear Med Report:1-Day Gated SPECT Myocardial Perfusion with Exercise Stress: Myocardial perfusion imaging was performed at rest 30 to 60 minutes following the IV injection of the radiotracer. One minute prior to peak exercise, the patient was injected IV with the radiotracer. Gated post stress tomographic imaging was performed 10 to 20 minutes later. See administered radiotracer and doses below. [facility] Date of service: 10/02/2024 8:05:06 AM Ordering Physician: JIMMY QUINTANA. Requesting Physician: Indication: Assessment for suspected CAD Interpreting physician: Meghna Barry MD Height: 152.40 cm BSA: 1.68 m Weight: 66.68 kg BMI: 28.7 kg/m Exam Type: Rest Stress Radiopharm: Tc-99m Tetrofosmin Tc-99m Tetrofosmin Dosage(mCi): 14.1 34.5 Atten Correction: not performed not performed Stress Agent: Treadmill Resting Blood Press: 142/80 mmHg Image Quality The overall study imaging quality was deemed to be good. FINDINGS: LVEF: 84 % LEFT VENTRICLE The left ventricle is normal in size. Left ventricular systolic function is hyperdynamic. Stress Test Findings: There is no scintigraphic evidence for inducible ischemia. There is no evidence of scarring. * * * Final * * * ------ Stress ECG Report: [facility] Date of service: 10/02/2024 8:05:06 AM Ordering physician: JIMMY QUINTANA ehs specialist: [employer] Associate: Myranda Reyes Interpreting physician: Krysta Willis MD Patient name: MRS. JUSTINE BERGERON Age: 54 years Gender: F Height: 152.40 cm BSA: 1.68 m Weight: 66.68 kg BMI: 28.7 kg/m Indication: Encounter for screening for cardiovascular disorders Stress ECG Conclusion: Conclusion: Abnormal due to abnormal ST depression (>= 2.0 mm) during stress and abnormal ST Depression (<2.0 mm) after stress, and abnormal Fatima treadmill score Stress ECG Summary: The patient's resting heart rate was 67 bpm and blood pressure was 142/80 mmHg. The patient exercised according to the Cullen protocol. The estimated end-exercise MET level achieved using the FRIEND equation * * * was 6.8, which is within the 50th to 75th percentile for age and sex. The estimated end-exercise MET level achieved using the previous ACSM equation was 8.1. The test was terminated due to end of protocol and the total exercise time was 7 minutes and 0 seconds. Other symptoms during the test included SOB. The maximum heart rate was 162 bpm, which is 98% of the predicted heart rate for age. This is an adequate heart rate response. Peak blood pressure was 176/94 mmHg. The double product achieved was [address]. Medications: Last Used ASPIRIN PEPCID METOPROLOL CRESTOR CALAN Resting ECG: Normal Sinus Rhythm Symptoms at rest: No symptoms Exercise Protocol: Cullen Stress Exercise Table: +-----+ +--- -----+ +---+- --+---+----+----+ Stage Speed (MPH) Grade(%) Time (min) HR SYS AVERY RPE METS +-----+ +--- -----+ +---+- --+---+----+----+ 1 1.7 10.0 3.0 141 164 84 13.0 4.2 +-----+ +--- -----+ +---+- --+---+----+----+ 2 2.5 12.0 6.0 155 172 80 15.0 6.1 +-----+ +--- -----+ +---+- --+---+----+----+ +-----+ +--- ------+ +---+ ---+---+----+----+ Speed (MPH) Grade (%) Time (min) HR SYS AVERY RPE METS +-----+ +--- ------+ + (more content not included)... [facility] Provider, Rocco Monsalve - 10/02/2024 * * *Final Report* * * DATE OF EXAM: Oct 02 2024 9:58AM SIOBHAN 0004 - [place] CARDIAC PERF STRESS/EXERCISE / PROCEDURE REASON: * * * * Physician Interpretation * * * * Stress Candy Supervisor Report: [facility] Date of service: 10/02/2024 8:05:06 AM Supervising physician: Krysta Willis MD PATIENT: Name: MRS. JUSTINE BERGERON Age: 54 years Gender: F The supervising physician was in the department and immediately available. * * * Final * * * ------ PATIENT: Name: MRS. JUSTINE BERGERON Age: 54 years Gender: F CONCLUSIONS: 1. SPECT Perfusion Study: Normal. 2. There is no scintigraphic evidence for inducible ischemia. 3. No evidence of scarred myocardium. 4. Left ventricle is normal in size. The left ventricle systolic function is hyperdynamic. 5. This is a low risk scan. LVEF % 84 Prior Study Comparison No prior nuclear cardiology exam available for comparison. Nuclear Med Report:1-Day Gated SPECT Myocardial Perfusion with Exercise Stress: Myocardial perfusion imaging was performed at rest 30 to 60 minutes following the IV injection of the radiotracer. One minute prior to peak exercise, the patient was injected IV with the radiotracer. Gated post stress tomographic imaging was performed 10 to 20 minutes later. See administered radiotracer and doses below. [facility] Date of service: 10/02/2024 8:05:06 AM Ordering Physician: JIMMY QUINTANA. Requesting Physician: Indication: Assessment for suspected CAD Interpreting physician: Meghna Barry MD Height: 152.40 cm BSA: 1.68 m Weight: 66.68 kg BMI: 28.7 kg/m Exam Type: Rest Stress Radiopharm: Tc-99m Tetrofosmin Tc-99m Tetrofosmin Dosage(mCi): 14.1 34.5 Atten Correction: not performed not performed Stress Agent: Treadmill Resting Blood Press: 142/80 mmHg Image Quality The overall study imaging quality was deemed to be good. FINDINGS: LVEF: 84 % LEFT VENTRICLE The left ventricle is normal in size. Left ventricular systolic function is hyperdynamic. Stress Test Findings: There is no scintigraphic evidence for inducible ischemia. There is no evidence of scarring. * * * Final * * * ------ Stress ECG Report: [facility] [facility] Date of service: 10/02/2024 8:05:06 AM Ordering physician: JIMMY QUINTANA ehs specialist: Liberty Hubbard [employer] Associate: Myranda Reyes Interpreting physician: Krysta Willis MD Patient name: MRS. JUSTINE BERGERON Age: 54 years Gender: F Height: 152.40 cm BSA: 1.68 m Weight: 66.68 kg BMI: 28.7 kg/m Indication: Encounter for screening for cardiovascular disorders Stress ECG Conclusion: Conclusion: Abnormal due to abnormal ST depression (>= 2.0 mm) during stress and abnormal ST Depression (<2.0 mm) after stress, and abnormal Fatima treadmill score Stress ECG Summary: The patient's resting heart rate was 67 bpm and blood pressure was 142/80 mmHg. The patient exercised according to the Cullen protocol. The estimated end-exercise MET level achieved using the FRIEND equation * * * was 6.8, which is within the 50th to 75th percentile for age and sex. The estimated end-exercise MET level achieved using the previous ACSM equation was 8.1. The test was terminated due to end of protocol and the total exercise time was 7 minutes and 0 seconds. Other symptoms during the test included SOB. The maximum heart rate was 162 bpm, which is 98% of the predicted heart rate for age. This is an adequate heart rate response. Peak blood pressure was 176/94 mmHg. The double product achieved was [address]. Medications: Last Used ASPIRIN PEPCID METOPROLOL FUADABI ABARCA Resting ECG: Normal Sinus Rhythm Symptoms at rest: No symptoms Exercise Protocol: Cullen Stress Exercise Table: +-----+ +--- -----+ +---+- --+---+----+----+ Stage Speed (MPH) Grade(%) Time (min) HR SYS AVERY RPE METS +-----+ +--- -----+ +---+- --+---+----+----+ 1 1.7 10.0 3.0 141 164 84 13.0 4.2 +-----+ +--- -----+ +---+- --+---+----+----+ 2 2.5 12.0 6.0 155 172 80 15.0 6.1 +-----+ +--- -----+ +---+- --+---+----+----+ +-----+ +--- ------+ +---+ ---+---+----+----+ Speed (MPH) Grade (%) Time (min) HR SYS AVERY RPE METS +-----+ +--- ------+ +---+ ---+---+----+----+ Final 3.4 14.0 7.00 162 176 94 16.5 6.8 +-----+ +--- ------+ + (more content not included)... [facility] Radiology Study observation (narrative) [facility] NM Heart Perfusion W multipl e states of exerciseOrdered By: [facility]cf Provider on 10-02-2024 [facility] CNPNon 09-29-2024 CNPN Telephone (CDLBME) JUSTINE BERGERON ([id number]) 1970 F Date Time Provider Department 09/29/24 [facility] During your visit today, we recorded the following information about you: Liberty Hubbard RN 09/29/2024 12:23 PM Signed Spoke to pt regarding reminder and instructions for stress test on Wednesday. This included where to check in, length of test and no caffeine for 24 hours prior to test. Allergies As of Date: 09/29/2024 Noted Allergy Reaction LEVAQUIN (LEVOFLOXACIN) 06/24/2011 14 - Other: See Comments Comments: Numbness, palpitations ALEVE (NAPROXEN SODIUM) 05/18/2013 14 - Other: See Comments Comments: BP elevation CODEINE 10/20/2007 8 - GI Upset Comments: Heart pounding EPINEPHRINE 05/14/2020 14 - Other: See Comments Comments: Heart races. Heart palpitations. Date Reviewed: 09/22/2024 Reviewed by: Jose Angel Denise, ROXANN - Fully Assessed Reason for Visit: Reminder Call [[id number]] Prescriptions as of 09/29/2024 - rosuvastatin (CRESTOR) 20 mg tablet Take 1 tablet by mouth daily at bedtime. - Cholecalciferol, Vitamin D3, (VITAMIN D-3) 50 mcg (2,000 unit) cap Take 2,000 Units by mouth once daily. - famotidine (PEPCID) 20 mg tablet Take 1 tablet by mouth two times a day. - verapamil SR (CALAN SR) 120 mg CR tablet Take 1 tablet by mouth once daily - metoprolol succinate ER (TOPROL XL) 50 mg 24 hr tablet Take 1 tablet by mouth once daily - cyclobenzaprine (FLEXERIL) 5 mg tablet Take 1 tablet by mouth daily at bedtime. Take 5 mg at bedtime. Gradually increase to three times a day as tolerated - aspirin 81 mg cap Take 81 mg by mouth once daily. - multivitamin (MULTIPLE VITAMINS ORAL) Take by mouth. Problem List As Of Date 09/29/2024 Noted Resolved Palpitations [R00.2] 10/20/2007 10/14/2015 Lumbago [M54.50] 10/20/2007 03/16/2014 Dermatophytosis of nail [B35.1] 10/20/2007 06/16/2013 Overweight(278.02) [E66.3] 10/20/2007 10/14/2015 Other and unspecified hyperlipidemia [E78.5] 01/01/2009 10/14/2015 MVP (mitral valve prolapse) [I34.1] 11/06/2010 12/12/2021 Cervicalgia [M54.2] 12/09/2011 Epigastric pain [R10.13] 06/12/2013 10/14/2015 Family history of ischemic heart disease [Z82.4*04/27/2014 Dysuria [R30.0] 01/08/2015 10/14/2015 Bilateral flank pain [R10.9] 01/08/2015 10/14/2015 Vaginal discharge [N89.8] 01/08/2015 10/14/2015 History of myositis [Z87.39] 01/08/2015 Lumbago [M54.50] 01/08/2015 Hyperlipidemia [E78.5] 10/14/2015 Atypical chest pain [R07.89] 10/14/2015 Raynaud's phenomenon without gangrene [I73.00] 05/31/2017 Lumbar disc herniation [M51.26] 03/20/2020 Annular tear of lumbar disc [M51.369] 03/20/2020 Encounter Status:Closed by LIBERTY HUBBARD on 09/29/24 Normal [facility] CBC W Auto Differential pane l (Bld)on 09-22-2024 Basophils (Bld) [#/Vol] 0.05 10*3/uL Normal <0.11 [facility] Comment on above: Order Comment: Speci men Type: BLOOD SPECIMEN Ordering Facility: [facility] Address: [address] [place] [address] Performed By: #### 5 7021-8 #### [facility] CLIA [id number] [address] Basophils/100 WBC (Bld) 0.8 % Normal [facility] Comment on above: Order Comment: Speci men Type: BLOOD SPECIMEN Ordering Facility: [facility] Address: [address] [place] [address] Performed By: #### 5 7021-8 #### [facility] CLIA [id number] [address] [place] Differential cell count method Nom (Bld) Auto Normal [facility] Comment on above: Order Comment: Speci men Type: BLOOD SPECIMEN Ordering Facility: [facility] Address: [address] [place] [address] Performed By: #### 5 7021-8 #### [facility] CLIA [id number] [address] [place] [address] [place] Eosinophils (Bld) [#/Vol] 0.14 10*3/uL Normal <0.46 [facility] Comment on above: Order Comment: Speci men Type: BLOOD SPECIMEN Ordering Facility: [facility] Address: [address] [place] [address] Performed By: #### 5 7021-8 #### [facility] CLIA [id number] [address] STATES [facility] Eosinophils/100 WBC (Bld) 2.2 % Normal [facility] Comment on above: Order Comment: Speci men Type: BLOOD SPECIMEN Ordering Facility: [facility] Address: [address] [place] [address] Performed By: #### 5 7021-8 #### [facility] CLIA [id number] [address] [place] Erythrocyte distribution width (RBC) [Ratio] 11.6 % Normal 11.5-15.0 [facility] Comment on above: Order Comment: Speci men Type: BLOOD SPECIMEN Ordering Facility: [facility] Address: [address] [place] [address] Performed By: #### 5 7021-8 #### [facility] CLIA [id number] [address] [place] Hematocrit (Bld) [Volume fraction] 38.7 % Normal 36.0-46.0 [facility] Comment on above: Order Comment: Speci men Type: BLOOD SPECIMEN Ordering Facility: [facility] Address: [address] [place] [address] Performed By: #### 5 7021-8 #### [facility] CLIA [id number] [address] [place] Hemoglobin (Bld) [Mass/Vol] 13.4 g/dL Normal 11.5-15.5 [facility] Comment on above: Order Comment: Speci men Type: BLOOD SPECIMEN Ordering Facility: [facility] Address: [address] [place] [address] Performed By: #### 5 7021-8 #### [facility] CLIA [id number] [address] [place] Immature granulocytes (Bld) [#/Vol] 10*3/uL Normal <0.10 [facility] Comment on above: Order Comment: Speci men Type: BLOOD SPECIMEN Ordering Facility: [facility] Address: [address] [place] [address] Performed By: #### 5 7021-8 #### [facility] CLIA [id number] [address] Immature granulocytes/100 WBC (Bld) 0.0 % Normal [facility] Comment on above: Order Comment: Speci men Type: BLOOD SPECIMEN Ordering Facility: [facility] Address: [address] [place] [address] Performed By: #### 5 7021-8 #### [facility] CLIA [id number] [address] Lymphocytes (Bld) [#/Vol] 3.05 10*3/uL Normal 1.00-4.00 [facility] Comment on above: Order Comment: Speci men Type: BLOOD SPECIMEN Ordering Facility: [facility] Address: [address] [place] [address] Performed By: #### 5 7021-8 #### [facility] CLIA [id number] [address] Lymphocytes/100 WBC (Bld) 47.4 % Normal [facility] Comment on above: Order Comment: Speci men Type: BLOOD SPECIMEN Ordering Facility: [facility] Address: [address] [place] [address] Performed By: #### 5 7021-8 #### [facility] CLIA [id number] [address] MCH (RBC) [Entitic mass] 31.5 pg Normal 26.0-34.0 [facility] Comment on above: Order Comment: Speci men Type: BLOOD SPECIMEN Ordering Facility: [facility] Address: [address] [place] [address] Performed By: #### 5 7021-8 #### [facility] CLIA [id number] [address] MCHC (RBC) [Mass/Vol] 34.6 g/dL Normal 30.5-36.0 [facility] Comment on above: Order Comment: Speci men Type: BLOOD SPECIMEN Ordering Facility: [facility] Address: [address] [place] [address] Performed By: #### 5 7021-8 #### [facility] CLIA [id number] [address] MCV (RBC) [Entitic vol] 91.1 fL Normal 80.0-100.0 [facility] Comment on above: Order Comment: Speci men Type: BLOOD SPECIMEN Ordering Facility: [facility] Address: [address] [place] [address] Performed By: #### 5 7021-8 #### [facility] CLIA [id number] [address] [place] [address] [place] Monocytes (Bld) [#/Vol] 0.56 10*3/uL Normal <0.87 [facility] Comment on above: Order Comment: Speci men Type: BLOOD SPECIMEN Ordering Facility: [facility] Address: [address] [place] [address] Performed By: #### 5 7021-8 #### [facility] CLIA [id number] [address] [place] Monocytes/100 WBC (Bld) 8.7 % Normal [facility] Comment on above: Order Comment: Speci men Type: BLOOD SPECIMEN Ordering Facility: [facility] Address: [address] [place] [address] Performed By: #### 5 7021-8 #### [facility] CLIA [id number] [address] [place] Neutrophils (Bld) [#/Vol] 2.63 10*3/uL Normal 1.45-7.50 [facility] Comment on above: Order Comment: Speci men Type: BLOOD SPECIMEN Ordering Facility: [facility] Address: [address] [place] [address] Performed By: #### 5 7021-8 #### [facility] CLIA [id number] [address] [place] Neutrophils/100 WBC (Bld) 40.9 % Normal [facility] Comment on above: Order Comment: Speci men Type: BLOOD SPECIMEN Ordering Facility: [facility] Address: [address] [place] [address] Performed By: #### 5 7021-8 #### [facility] CLIA [id number] [address] [place] [address] [place] Nucleated RBC (Bld) [#/Vol] 10*3/uL Normal <0.01 [facility] Comment on above: Order Comment: Speci men Type: BLOOD SPECIMEN Ordering Facility: [facility] Address: [address] [place] [address] Performed By: #### 5 7021-8 #### [facility] CLIA [id number] [address] [place] [address] [place] Nucleated RBC/100 WBC (Bld) [Ratio] 0.0 /100 WBC Normal [facility] Comment on above: Order Comment: Speci men Type: BLOOD SPECIMEN Ordering Facility: [facility] Address: [address] [place] [address] Performed By: #### 5 7021-8 #### [facility] CLIA [id number] [address] [place] [address] [place] Platelet mean volume (Bld) [Entitic vol] 10.1 fL Normal 9.0-12.7 [facility] Comment on above: Order Comment: Speci men Type: BLOOD SPECIMEN Ordering Facility: [facility] Address: [address] [place] [address] Performed By: #### 5 7021-8 #### [facility] CLIA [id number] [address] [place] Platelets (Bld) [#/Vol] 238 10*3/uL Normal 150-400 [facility] Comment on above: Order Comment: Speci men Type: BLOOD SPECIMEN Ordering Facility: [facility] Address: [address] [place] [address] Performed By: #### 5 7021-8 #### [facility] CLIA [id number] [address] [place] RBC (Bld) [#/Vol] 4.25 10*6/uL Normal 3.90-5.20 [facility] Comment on above: Order Comment: Speci men Type: BLOOD SPECIMEN Ordering Facility: [facility] Address: [address] [place] [address] Performed By: #### 5 7021-8 #### [facility] CLIA [id number] [address] [place] WBC (Bld) [#/Vol] 6.43 10*3/uL Normal 3.70-11.00 [facility] Comment on above: Order Comment: Speci men Type: BLOOD SPECIMEN Ordering Facility: [facility] Address: [address], [place] [address] Performed By: #### 5 7021-8 #### [facility] [id number] [address] [place] [address] [facility] Giovanna 09-22-2024 CNPN Telephone (CATHMN) JUSTINE BERGERON ([id number]) 1970 F Date Time Provider Department 09/22/24 JIMMY QUINTANA [facility] During your visit today, we recorded the following information about you: Jing Sagastume 09/22/2024 12:36 PM Signed Call from patient with concern about the EKG results in [facility]. Patient can be reached at [phone] Allergies As of Date: 09/22/2024 Noted Allergy Reaction LEVAQUIN (LEVOFLOXACIN) 06/24/2011 14 - Other: See Comments Comments: Numbness, palpitations ALEVE (NAPROXEN SODIUM) 05/18/2013 14 - Other: See Comments Comments: BP elevation CODEINE 10/20/2007 8 - GI Upset Comments: Heart pounding EPINEPHRINE 05/14/2020 14 - Other: See Comments Comments: Heart races. Heart palpitations. Date Reviewed: 09/22/2024 Reviewed by: Jose Angel Denise, ROXANN - Fully Assessed Prescriptions as of 09/26/2024 - rosuvastatin (CRESTOR) 20 mg tablet Take 1 tablet by mouth daily at bedtime. - Cholecalciferol, Vitamin D3, (VITAMIN D-3) 50 mcg (2,000 unit) cap Take 2,000 Units by mouth once daily. - famotidine (PEPCID) 20 mg tablet Take 1 tablet by mouth two times a day. - verapamil SR (CALAN SR) 120 mg CR tablet Take 1 tablet by mouth once daily - metoprolol succinate ER (TOPROL XL) 50 mg 24 hr tablet Take 1 tablet by mouth once daily - cyclobenzaprine (FLEXERIL) 5 mg tablet Take 1 tablet by mouth daily at bedtime. Take 5 mg at bedtime. Gradually increase to three times a day as tolerated - aspirin 81 mg cap Take 81 mg by mouth once daily. - multivitamin (MULTIPLE VITAMINS ORAL) Take by mouth. Problem List As Of Date 09/22/2024 Noted Resolved Palpitations [R00.2] 10/20/2007 10/14/2015 Lumbago [M54.50] 10/20/2007 03/16/2014 Dermatophytosis of nail [B35.1] 10/20/2007 06/16/2013 Overweight(278.02) [E66.3] 10/20/2007 10/14/2015 Other and unspecified hyperlipidemia [E78.5] 01/01/2009 10/14/2015 MVP (mitral valve prolapse) [I34.1] 11/06/2010 12/12/2021 Cervicalgia [M54.2] 12/09/2011 Epigastric pain [R10.13] 06/12/2013 10/14/2015 Family history of ischemic heart disease [Z82.4*04/27/2014 Dysuria [R30.0] 01/08/2015 10/14/2015 Bilateral flank pain [R10.9] 01/08/2015 10/14/2015 Vaginal discharge [N89.8] 01/08/2015 10/14/2015 History of myositis [Z87.39] 01/08/2015 Lumbago [M54.50] 01/08/2015 Hyperlipidemia [E78.5] 10/14/2015 Atypical chest pain [R07.89] 10/14/2015 Raynaud's phenomenon without gangrene [I73.00] 05/31/2017 Lumbar disc herniation [M51.26] 03/20/2020 Annular tear of lumbar disc [M51.369] 03/20/2020 Encounter Status:Closed by LUIS RICKS on 09/26/24 Normal [facility] metabolic 2000 panelon 09-22-2024 Albumin [Mass/Vol] 4.3 g/dL Normal 3.9-4.9 [facility] Comment on above: Order Comment: Speci men Type: BLOOD SPECIMEN Ordering Facility: [facility] Address: [address] [place] [id number] Performed By: #### 2 4323-8, [id number], 63351-4, 3040-3 #### [facility] CLIA [id number] [address] [place] [address] [place] ALP [Catalytic activity/Vol] 46 U/L Normal 34-123 [facility] Comment on above: Order Comment: Speci men Type: BLOOD SPECIMEN Ordering Facility: [facility] Address: [address] [place] [address] Performed By: #### 2 4323-8, [id number], 28945-8, 3040-3 #### [facility] CLIA [id number] [address] [place] ALT [Catalytic activity/Vol] 16 U/L Normal 7-38 [facility] Comment on above: Order Comment: Speci men Type: BLOOD SPECIMEN Ordering Facility: [facility] Address: [address] [address] Performed By: #### 2 4323-8, [id number], 08900-6, 0-3 #### [facility] CLIA [id number] [address] [place] [address] [place] [facility] Anion gap [Moles/Vol] 10 mmol/L Normal 8-15 [facility] Comment on above: Order Comment: Speci men Type: BLOOD SPECIMEN Ordering Facility: [facility] Address: [address] [place] [address] Performed By: #### 2 4323-8, [id number], 23671-0, 3040-3 #### [facility] CLIA [id number] [address] [place] [address] [place] AST [Catalytic activity/Vol] 26 U/L Normal 13-35 [facility] Comment on above: Order Comment: Speci men Type: BLOOD SPECIMEN Ordering Facility: [facility] Address: [address] [place] [address] Performed By: #### 2 4323-8, [id number], 13144-8, 3040-3 #### [facility] CLIA [id number] [address] [place] [address] [place] Bilirubin [Mass/Vol] 0.9 mg/dL Normal 0.2-1.3 [facility] Comment on above: Order Comment: Speci men Type: BLOOD SPECIMEN Ordering Facility: [facility] Address: [address] [place] [address] Performed By: #### 2 4323-8, [id number], 37132-1, 3040-3 #### [facility] CLIA [id number] [address] [place] [address] [place] Calcium [Mass/Vol] 10.1 mg/dL Normal 8.5-10.2 [facility] Comment on above: Order Comment: Speci men Type: BLOOD SPECIMEN Ordering Facility: [facility] Address: [address] [place] [address] Performed By: #### 2 4323-8, [id number], , 0-3 #### [facility] CLIA [id number] [address] [place] [address] [place] Chloride [Moles/Vol] 100 mmol/L Normal 98-107 [facility] Comment on above: Order Comment: Speci men Type: BLOOD SPECIMEN Ordering Facility: [facility] Address: [address] [place] [address] Performed By: #### 2 4323-8, [id number], , 0-3 #### [facility] CLIA [id number] [address] [place] CO2 [Moles/Vol] 28 mmol/L Normal 22-30 [facility] Comment on above: Order Comment: Speci men Type: BLOOD SPECIMEN Ordering Facility: [facility] Address: [address] [place] [address] Performed By: #### 2 4323-8, [id number], , 3040-3 #### [facility] CLIA [id number] [address] [place] [address] [place] Creatinine [Mass/Vol] 0.70 mg/dL Normal 0.58-0.96 [facility] Comment on above: Order Comment: Speci men Type: BLOOD SPECIMEN Ordering Facility: [facility] Address: [address] [place] [address] Performed By: #### 2 4323-8, [id number], 94299-3, 0-3 #### [facility] CLIA [id number] [address] [place] [address] [place] Creatinine and Glomerular filtration rate.predicted panel (S/P/Bld) 103 mL/min/1.73m??? Normal >=60 [facility] Comment on above: Order Comment: Christian sears Type: BLOOD SPECIMEN Ordering Facility: [facility] Address: [address] [place] [address] Result Comment: Radha mated Glomerular Filtration Rate (eGFR) is calculated using the 2020 CKD-EPI creatinine equation. This equation utilizes serum creatinine, sex, and age as parameters. The creatinine assay has traceable calibration to isotope dilution-mass spectrometry. Refer to KDIGO guidelines for clinical interpretation. In patients with unstable renal function, e.g. those with acute kidney injury, the eGFR may not accurately reflect actual GFR. Performed By: #### 2 4323-8, [id number], 53684-2, 0-3 #### [facility] CLIA [id number] [address] [place] [address] [place] Glucose [Mass/Vol] 107 mg/dL High 74-99 [facility] Comment on above: Order Comment: Christian sears Type: BLOOD SPECIMEN Ordering Facility: [facility] Address: [address] [place] [address] Result Comment: The [place] Diabetes Association (ADA) provides guidance for cutoff values for fasting glucose and random glucose. The ADA defines fasting as no caloric intake for at least 8 hours. Fasting plasma glucose results between 100 to 125 mg/dL indicate increased risk for diabetes (prediabetes). Fasting plasma glucose results greater than or equal to 126 mg/dL meet the criteria for diagnosis of diabetes. In the absence of unequivocal hyperglycemia, results should be confirmed by repeat testing. In a patient with classic symptoms of hyperglycemia or hyperglycemic crisis, random plasma glucose results greater than or equal to 200 mg/dL meet the criteria for diagnosis of diabetes. Reference: Standards of Medical Care in Diabetes 2016, [place] [employer] Association. Diabetes Care. 2016.39(Suppl 1). Performed By: #### 2 4323-8, [id number], 90687-3, 0-3 #### [facility] CLIA [id number] [address] [place] [address] [place] Potassium [Moles/Vol] 3.6 mmol/L Low 3.7-5.1 [facility] Comment on above: Order Comment: Speci men Type: BLOOD SPECIMEN Ordering Facility: [facility] Address: [address] [place] [address] Performed By: #### 2 4323-8, [id number], , 0-3 #### [facility] CLIA [id number] [address] [place] [address] [place] Protein [Mass/Vol] 7.2 g/dL Normal 6.3-8.0 [facility] Comment on above: Order Comment: Speci men Type: BLOOD SPECIMEN Ordering Facility: [facility] Address: [address] [place] [address] Performed By: #### 2 4323-8, [id number], , 0-3 #### [facility] CLIA [id number] [address] [place] Sodium [Moles/Vol] 138 mmol/L Normal 136-144 [facility] Comment on above: Order Comment: Speci men Type: BLOOD SPECIMEN Ordering Facility: [facility] Address: [address] [place] [address] Performed By: #### 2 4323-8, [id number], , 0-3 #### [facility] CLIA [id number] [address] [place] [address] [place] Urea nitrogen [Mass/Vol] 16 mg/dL Normal 7-21 [facility] Comment on above: Order Comment: Speci men Type: BLOOD SPECIMEN Ordering Facility: [facility] Address: [address] [place] [address] Performed By: #### 2 4323-8, [id number], , 0-3 #### [facility] CLIA [id number] [address] [place] [address] [place] ED NOTEon 09-22-2024 ED NOTE HNO ID: [id number] Author: NEO FERMIN RN Service: Nursing Author Type: Registered Nurse Type: ED Notes Filed: 09/22/2024 21:11 Note Text: Pt states there was no change from taking the nitro Dr Isabel was updated of the pain assessment Pt refused the iv toradol due to it making her heart rate increase pt said this happens per her bead stringer Normal [facility] ED NOTE HNO ID: [id number] Author: NEO FERMIN RN Service: Nursing Author Type: Registered Nurse Type: ED Notes Filed: 09/22/2024 21:09 Note Text: Pt is to follow up with her medical dr as per instructed po fluids were encouraged return to the er for any changes Normal [facility] ED NOTE HNO ID: [id number] Author: NEO FERMIN RN Service: Nursing Author Type: Registered Nurse Type: ED Notes Filed: 09/22/2024 20:47 Note Text: Dr Isabel has rounded Normal [facility] ED NOTE HNO ID: [id number] Author: NEO FERMIN RN Service: Nursing Author Type: Registered Nurse Type: ED Notes Filed: 09/22/2024 19:56 Note Text: Pt to radiology per the er cart for a chest xray her remains at the bedside Normal [facility] ED NOTE HNO ID: [id number] Author: NOE FERMIN RN Service: Nursing Author Type: Registered Nurse Type: ED Notes Filed: 09/22/2024 19:56 Note Text: Pt is in a position of comfort denies needs states she has an occasional chest pain right side which started last evening denies sweating denies nausea or vomiting Normal [facility] ED PROV NOTEon 09-22-2024 ED PROV NOTE HNO ID: [id number] Author: TEJAL ISABEL MD Service: ? Author Type: Physician Type: ED Provider Notes Filed: 09/22/2024 20:57 Note Text: ED Provider Note Patient Name: Justine Bergeron : 1970 SERVICE DATE: 09/22/24 History Patient presents with: Chest Pain: Epigastric pain that radiates through to back, since yesterday. Patient presents for substernal chest discomfort that has been waxing and waning today. She had a little bit of discomfort yesterday but today it became more persistent. She did feel somewhat short of breath at 1 point but stated that she thought she was getting herself worked up. It does radiate into her back at times and spreads out. She just saw her bead stringer 2 days ago and had a positive visit. She has a stress test in the future. PAST MEDICAL HISTORY Diagnosis Date Anemia treated with iron in past Arthritis Displacement of intervertebral disc, site unspecified, without myelopathy cervical and lower back Family history of early CAD Fibromyalgia Heart murmur Mammographic microcalcification Mitral valve disorders(424.0) MVP MVP (mitral valve prolapse) 11/06/2010 Near syncope Other and unspecified hyperlipidemia 2019 told high age 22 on RX on and off in past Seizure (HCC) pt told absent seizure' during dental appointment no workup PAST SURGICAL HISTORY Procedure Laterality Date DELIVERY ONLY , low cervical COLONOSCOPY FLX DX W/COLLJ SPEC WHEN PFRMD 03/18/2021 ESOPHAGOGASTRODUODENOS COPY TRANSORAL DIAGNOSTIC 06/15/2013 EGD ESOPHAGOGASTRODUODENOS COPY TRANSORAL DIAGNOSTIC 03/18/2021 EYE SURGERY HX PAST SURGICAL HISTORY OF urethra stretching age 2 PAST SURGICAL HISTORY OF DANDC PAST SURGICAL HISTORY OF wisdom teeth RPR UMBILICAL HERNIA < 5 YRS REDUCIBLE 2000 Hernia repair, umbilical <5yr FAMILY HISTORY Problem Relation Age of Onset Hypertension Mother Diabetes Mother Stroke Mother 62 carotid disease other (CABG) Mother 67 Cancer Father Heart Father 64 PA coronary stent Heart Brother 37 PA 3 stents Hypertension Brother other (Hemophelia) Brother Uterine Fibroids Brother Hypertension Maternal Grandmother other (Myocardial infarction) Maternal Grandfather 54 Diabetes Maternal Grandfather Breast Cancer Paternal Grandmother other (Myocardidal infarction) Paternal Grandmother 80 3 stents other (brain bleeding) Paternal Grandmother other (cousins) Other Mi' age 41-42 Maternal Social History Tobacco Use Smoking status: Never Smokeless tobacco: Never Vaping Use Vaping status: Never Used Substance and Sexual Activity Alcohol use: Yes Comment: 1-2 wine or beer a week Drug use: No Sexual activity: Yes Partners: Male control/protection: Condom ALLERGIES Allergen Reactions Levaquin [Levofloxa* Other: See Comments Numbness, palpitations Aleve [Naproxen Sod* Other: See Comments BP elevation Codeine GI Upset Heart pounding Epinephrine Other: See Comments Heart races. Heart palpitations. Review of Systems Constitutional: Pertinent positives and negatives as per HPI. Physical Exam Vitals [09/22/24 192] BP Pulse Temp Temp src Resp SpO2 Weight Height 140/88 76 36.8 ?C (98.2 ?F) Temporal 16 95 % 66.7 kg (147 lb) -- Physical Exam Vitals and nursing note reviewed. Constitutional: General: She is not in acute distress. Appearance: She is well-developed. She is not ill-appearing. Cardiovascular: Rate and Rhythm: Normal rate and regular rhythm. Pulses: Posterior tibial pulses are 2+ on the right side and 2+ on the left side. Heart sounds: Normal heart sounds. No murmur heard. Pulmonary: Effort: Pulmonary effort is normal. No respiratory distress. Breath sounds: No decreased breath sounds, wheezing, rhonchi or rales. Abdominal: Palpations: Abdomen is soft. Tenderness: There is abdominal tenderness (Mild epigastric tenderness). Musculoskeletal: Right lower leg: No tenderness. No edema. Left lower leg: No tenderness. No edema. Skin: General: Skin is warm and dry. Neurological: General: No focal deficit present. Mental Status: She is alert. Diagnostic Testing ED Labs Ordered and Reviewed - No data to display Results for orders placed or performed during the hospital encounter of 09/22/24 EKG Impression NORMAL SINUS RHYTHM NORMAL ECG No STEMI Confirmed by TEJAL ISABEL MD ([id number]) on 09/22/2024 7:29:15 PM Procedures ED Course / Clinical Impression ED Course as of 09/22/242054 Tejal Isabel W's Documentation WedSep 22, 20242008 Lipase: 44 Lipase normal 2009 ARTHUR High Sensitivity: <6 Troponin negative 2009 Glucose(!): 107 Glucose appropriate, no significant electrolyte, renal or hepatic abnormalities other than mild hypokalemia 3.6 2010 WBC: 6.43 No leukocytosis 2010 Hemoglobin: 13.4 No anemia Clinical Impressions as of 09/22/242054 Chest pain of uncer (more content not included)... Normal [facility] EKGon 09-22-2024 Electrocardiogram Ventricular Rate : 7 0 BPM Atrial Rate : 70 BPM P-R Interval : 126 ms QRS Duration : 88 ms Q-T Interval : 390 ms QTC Calculation(Bazett) : 421 ms Calculated P Peoria : 57 degrees Calculated R Pe[place] : 33 degrees Calculated T Pe[place] : 40 degrees NORMAL SINUS RHYTHM NORMAL ECG No STEMI Confirmed by TEJAL ISABEL MD ([id number]) on 09/22/2024 7:29:15 PM NAME : JUSTINE BERGERON PID : [id number] : 1970 Gender : Female Race : ORD : Procedure Date : Sep 22 2024 19:20:01 Edit Date : Sep 22 2024 19:29:16 Diagnosis: NORMAL SINUS RHYTHM NORMAL ECG No STEMI Confirmed by TEJAL ISABEL MD ([id number]) on 09/22/2024 7:29:15 PM Test Reason : Location : 1 : ER ED Overread By : TEJAL ISABEL MD Edited By : TEJAL ISABEL MD Referred By : , Acquired by : [id number], [facility] HIGH SENSITIVITY TROPONIN T (INITIAL)on 09-22-2024 Troponin T.cardiac High sensitivity method [Mass/Vol] <6 Normal <12 [facility] Comment on above: Order Comment: Christian sears Type: BLOOD SPECIMEN Ordering Facility: [facility] Address: [address] [place] [address] Performed By: #### 2 4323-8, [id number], 53304-0, 0-3 #### [facility] CLIA [id number] [address] [place] [address] [place] HIGH SENSITIVITY TROPONIN T (SECOND)on 09-22-2024 Troponin T.cardiac High sensitivity method [Mass/Vol] <6 Normal <12 [facility] Comment on above: Order Comment: Christian sears Type: BLOOD SPECIMEN Ordering Facility: [facility] Address: [address] [place] [address] Performed By: #### L [id number] #### [facility] CLIA [id number] [address] [place] [address] [place] Lipase SerPl-cCncon 09-22-19 25 Lipase [Catalytic activity/Vol] 44 U/L Normal 16-61 [facility] Comment on above: Order Comment: Christian sears Type: BLOOD SPECIMEN Ordering Facility: [facility] Address: [address] [place] [address] Performed By: #### 2 4323-8, [id number], 87516-0, 3040-3 #### [facility] CLIA [id number] [address] [place] [address] [place] Magnesium SerPl-mCncon 09-22 Magnesium [Mass/Vol] 2.0 mg/dL Normal 1.7-2.3 [facility] Comment on above: Order Comment: Speci men Type: BLOOD SPECIMEN Ordering Facility: [facility] Address: [address] [place] [address] Performed By: #### 2 4323-8, [id number], 89693-3, 3039-3 #### [facility] CLIA [id number] [address] [place] [address] [place] XR CHEST 2V FRONTAL/LATon XR CHEST 2V FRONTAL/LAT * * *Final Report* * * DATE OF EXAM: Sep 22 2024 8:05PM MDX [id number] - XR CHEST 2V FRONTAL/LAT / PROCEDURE REASON: Chest Pain * * * * Physician Interpretation * * * * EXAMINATION: CHEST RADIOGRAPH (2 VIEW FRONTAL and LATERAL) CLINICAL HISTORY: Chest Pain MQ: [id number]_6 EXAM DATE/TIME: 09/22/2024 8:05 PM COMPARISON: No relevant prior studies available. RESULT: Lines, tubes, and devices: None. Lungs and pleura: No consolidation. No lung mass. No pleural effusion. No pneumothorax. Cardiomediastinal silhouette: Normal cardiomediastinal silhouette. Bones and soft tissues: Unremarkable. IMPRESSION: No acute radiographic abnormality. Wire Brusher: PSCB Transcribe Date/Time: Sep 22 2024 8:21P Dictated by : MABLE POLANCO MD This examination was interpreted and the report reviewed and electronically signed by: MABLE POLANCO MD on Sep 22 2024 8:22PM EST [id number] Normal [facility] CNOVon 09-20-2024 CNOV Office Visit (CATHMN ) JUSTINE BERGERON ([id number]) 1970 F Date Time Provider Department 09/20/24 11:00 AM JIMMY QUINTANA CATHMATT During your visit today, we recorded the following information about you: Pulse Respiration Blood pressure Weight 64/minute 14/minute 118/71 66.7 kg Height 1.524 m Jimmy Quintana MD 09/20/2024 11:15 AM Signed [facility] [place] [facility] I[facility] Department of Cardiovascular Medicine SECTION OF INTERVENTIONAL CARDIOLOGY OUTPATIENT VISIT DATE September 20, 2024 OUTPATIENT VISIT TYPE ESTABLISHED PRIMARY CARE PHYSICIAN: Domonique Guzman [address] [place] [address] REFERRING PHYSICIAN: Jimmy Quintana [address] [facility] [address] CHIEF COMPLAINT: No chief complaint on file. HISTORY OF PRESENT ILLNESS: Ms. Bergeron is a 54 year old female who presents today for follow-up visit . She denies . PAST CARDIAC HISTORY: See HPI PAST MEDICAL HISTORY Diagnosis Date Anemia treated with iron in past Arthritis Displacement of intervertebral disc, site unspecified, without myelopathy cervical and lower back Family history of early CAD Fibromyalgia Heart murmur Mammographic microcalcification Mitral valve disorders(424.0) MVP MVP (mitral valve prolapse) 11/06/2010 Near syncope Other and unspecified hyperlipidemia 2020 told high age 22 on RX on and off in past Seizure (HCC) pt told absent seizure' during dental appointment no workup PAST SURGICAL HISTORY Procedure Laterality Date DELIVERY ONLY , low cervical COLONOSCOPY FLX DX W/COLLJ SPEC WHEN PFRMD 03/18/2021 ESOPHAGOGASTRODUODENOS COPY TRANSORAL DIAGNOSTIC 06/15/2013 EGD ESOPHAGOGASTRODUODENOS COPY TRANSORAL DIAGNOSTIC 03/18/2021 EYE SURGERY HX PAST SURGICAL HISTORY OF urethra stretching age 2 PAST SURGICAL HISTORY OF DANDC PAST SURGICAL HISTORY OF wisdom teeth RPR UMBILICAL HERNIA < 5 YRS REDUCIBLE 2001 Hernia repair, umbilical <5yr SOCIAL HISTORY Social History Tobacco Use Smoking status: Never Smokeless tobacco: Never Vaping Use Vaping status: Never Used Substance Use Topics Alcohol use: Yes Comment: 1-2 wine or beer a week Drug use: No FAMILY HISTORY Problem Relation Age of Onset Hypertension Mother Diabetes Mother Stroke Mother 62 carotid disease other (CABG) Mother 67 Cancer Father Heart Father 64 PA coronary stent Heart Brother 37 PA 3 stents Hypertension Brother other (Hemophelia) Brother Uterine Fibroids Brother Hypertension Maternal Grandmother other (Myocardial infarction) Maternal Grandfather 54 Diabetes Maternal Grandfather Breast Cancer Paternal Grandmother other (Myocardidal infarction) Paternal Grandmother 80 3 stents other (brain bleeding) Paternal Grandmother other (cousins) Other Mi' age 41-42 Maternal ALLERGIES: ALLERGIES Allergen Reactions Levaquin [Levofloxa* Other: See Comments Numbness, palpitations Aleve [Naproxen Sod* Other: See Comments BP elevation Codeine GI Upset Heart pounding Epinephrine Other: See Comments Heart races. Heart palpitations. MEDICATIONS: Current Outpatient Medications Medication Sig famotidine (PEPCID) 20 mg tablet Take 1 tablet by mouth two times a day. rosuvastatin (CRESTOR) 10 mg tablet TAKE 1 TABLET BY MOUTH ONCE DAILY AT BEDTIME verapamil SR (CALAN SR) 120 mg CR tablet Take 1 tablet by mouth once daily metoprolol succinate ER (TOPROL XL) 50 mg 24 hr tablet Take 1 tablet by mouth once daily cyclobenzaprine (FLEXERIL) 5 mg tablet Take 1 tablet by mouth daily at bedtime. Take 5 mg at bedtime. Gradually increase to three times a day as tolerated aspirin 81 mg cap Take 81 mg by mouth once daily. multivitamin (MULTIPLE VITAMINS ORAL) Take by mouth. No current facility-administered medications for this visit. REVIEW OF SYSTEMS: PHYSICAL EXAMINATION: LMP 02/07/2024 CARDIOVASCULAR MEDICINE TESTING: Last EKG Result Conclusion ECG COMPLETE Collected: 09/20/2024 10:05 AM (Preliminary result) Impression: NORMAL SINUS RHYTHM CANNOT EXCLUDE ANTERIOR MYOCARDIAL INFARCTION , AGE UNDETERMINED ABNORMAL ECG IMPRESSION: Ms. Bergeron is a 54 year old female last seen 10/22 with SVT and atyp c/p Palp x 20 yrs, often break w cough, neg Holter; normal TTE + fm h/o early CAD occ noctural or pleurtic c/p Raynaud's seroneg arthritis ? Fibromyalgia Hb 13.0 Cr 0.7 CRP <0.3 LDL 74 zio 01/18 4 short bursts of SVT CTA 50% mid LAD only TODAY Fewer palp, short but daily, Raynaud's better too Lax on diet, EtOH; has gained ~20 lbs < 1 min c/p -> neck and left shoulder, unrelated to exertion Doesn't exercise d/t fear of palp and PA Whooshing in left neck ECG normal x mild PRWP 06/22 labs Hb 12.3 Cr 0.8 LDL 85 asa top (more content not included)... Normal [facility] ECG COMPLETEon 09-20-2024 ECG COMPLETE Ventricular Rate : 6 4 BPM Atrial Rate : 64 BPM P-R Interval : 134 ms QRS Duration : 82 ms Q-T Interval : 388 ms QTC Calculation(Bazett) : 400 ms Calculated P Peoria : 58 degrees Calculated R Pe[place] : 32 degrees Calculated T Pe[place] : 44 degrees NORMAL SINUS RHYTHM NORMAL ECG Confirmed by MD LLAMAS TAMANNA ([id number]) on 10/02/2024 12:30:37 PM NAME : JUSTINE BERGERON PID : [id number] : 1970 Gender : Female Race : ORD : [id number] Procedure Date : Sep 20 2024 10:05:43 Edit Date : Oct 02 2024 12:30:40 Diagnosis: NORMAL SINUS RHYTHM NORMAL ECG Confirmed by MD LLAMAS TAMANNA ([id number]) on 10/02/2024 12:30:37 PM Test Reason : Location : 314 : [facility] J1-4 Overread By : MD LLAMAS TAMANNA Edited By : MD LLAMAS TAMANNA Referred By : JIMMY QUINTANA Acquired by : MATY JOINER [facility] CNOVon 09-15-2024 CNOV Office Visit (STFLD) JUSTINE BERGERON ([id number]) 1970 F Date Time Provider Department 09/15/24 11:20 AM NOHEMY HILL STFLD During your visit today, we recorded the following information about you: Nohemy Hill DO 09/15/2024 12:05 PM Signed Established Patient Visit Last Visit Date: 06/06/24 CC: Lesion of concern HPI: 54 year old female. Today's concerns are: 1) Lesion of concern Location: R lower leg Duration: Noticed on wednesday Symptoms: states it has come and gone before Current treatment: none Past treatment: none Past Derm History: Personal history of melanoma: No Family history of melanoma (1st degree relative): No, great uncle with melanoma History of atypical nevi: No Personal history of NMSC: Yes: BCC right mandible Mohs 07/12/2023 ROS: Denies fevers, weight loss, night sweats, joint pain, abdominal pain, headaches, cough. Skin as above. Physical Exam: Gen: AANDOx3, well appearing Skin exam performed including legs. Exam with noted findings of: -Firm hyperpigmented nodule with positive dimple sign of left anterior lower leg Assessment/Plan: ASSESSMENT/PLAN: 1. Dermatofibroma - ICD9: 216.9, ICD10: D23.9 - Explanation of these lesions were dicussed. Benign reassurance was given. RTC November for FBSE. The patient is seen and examined by Dr. Hill and the following reflects his/her service. Scribed by Arlene Preston RN. I agree with the Chief Complaint, ROS, and Past Histories independently gathered by the clinical retail support associate and the remaining scribed note accurately describes my personal service to the patient. Nohemy Hill DO Allergies As of Date: 09/15/2024 Noted Allergy Reaction LEVAQUIN (LEVOFLOXACIN) 06/24/2011 14 - Other: See Comments Comments: Numbness, palpitations ALEVE (NAPROXEN SODIUM) 05/18/2013 14 - Other: See Comments Comments: BP elevation CODEINE 10/20/2007 8 - GI Upset Comments: Heart pounding EPINEPHRINE 05/14/2020 14 - Other: See Comments Comments: Heart races. Heart palpitations. Date Reviewed: 09/15/2024 Reviewed by: Arlene Preston RN - Fully Assessed Reason for Visit: LESION, SKIN [936] Primary Visit Diagnosis:Dermatofibro ma [D23.9] Prescriptions as of 09/15/2024 - rosuvastatin (CRESTOR) 10 mg tablet TAKE 1 TABLET BY MOUTH ONCE DAILY AT BEDTIME - verapamil SR (CALAN SR) 120 mg CR tablet Take 1 tablet by mouth once daily - metoprolol succinate ER (TOPROL XL) 50 mg 24 hr tablet Take 1 tablet by mouth once daily - cyclobenzaprine (FLEXERIL) 5 mg tablet Take 1 tablet by mouth daily at bedtime. Take 5 mg at bedtime. Gradually increase to three times a day as tolerated - famotidine (PEPCID) 20 mg tablet Take 1 tablet by mouth twice daily. - aspirin 81 mg cap Take 81 mg by mouth once daily. - multivitamin (MULTIPLE VITAMINS ORAL) Take by mouth. Problem List As Of Date 09/15/2024 Noted Resolved Palpitations [R00.2] 10/20/2007 10/14/2015 Lumbago [M54.50] 10/20/2007 03/16/2014 Dermatophytosis of nail [B35.1] 10/20/2007 06/16/2013 Overweight(278.02) [E66.3] 10/20/2007 10/14/2015 Other and unspecified hyperlipidemia [E78.5] 01/01/2009 10/14/2015 MVP (mitral valve prolapse) [I34.1] 11/06/2010 12/12/2021 Cervicalgia [M54.2] 12/09/2011 Epigastric pain [R10.13] 06/12/2013 10/14/2015 Family history of ischemic heart disease [Z82.4*04/27/2014 Dysuria [R30.0] 01/08/2015 10/14/2015 Bilateral flank pain [R10.9] 01/08/2015 10/14/2015 Vaginal discharge [N89.8] 01/08/2015 10/14/2015 History of myositis [Z87.39] 01/08/2015 Lumbago [M54.50] 01/08/2015 Hyperlipidemia [E78.5] 10/14/2015 Atypical chest pain [R07.89] 10/14/2015 Raynaud's phenomenon without gangrene [I73.00] 05/31/2017 Lumbar disc herniation [M51.26] 03/20/2020 Annular tear of lumbar disc [M51.369] 03/20/2020 Encounter Status:[facility] NEOJUSTINE ([id number]) 1970 F Date Time Provider Department 09/05/24 JIMMY QUINTANA During your visit today, we recorded the following information about you: Luis Ricksoine 09/05/2024 3:13 PM Signed Pt called to have lab orders submitted for her upcoming appt on 09/19/24 Pt will have labs completed at [facility] once she sees the orders. Allergies As of Date: 09/05/2024 Noted Allergy Reaction LEVAQUIN (LEVOFLOXACIN) 06/24/2011 14 - Other: See Comments Comments: Numbness, palpitations ALEVE (NAPROXEN SODIUM) 05/18/2013 14 - Other: See Comments Comments: BP elevation CODEINE 10/20/2007 8 - GI Upset Comments: Heart pounding EPINEPHRINE 05/14/2020 14 - Other: See Comments Comments: Heart races. Heart palpitations. Date Reviewed: 06/06/2024 Reviewed by: Christianne Olsen OCCA - Fully Assessed Reason for Visit: Orders [681] Prescriptions as of 09/05/2024 - cyclobenzaprine (FLEXERIL) 5 mg tablet Take 1 tablet by mouth daily at bedtime. Take 5 mg at bedtime. Gradually increase to three times a day as tolerated - metoprolol succinate ER (TOPROL XL) 50 mg 24 hr tablet Take 1 tablet by mouth once daily. - rosuvastatin (CRESTOR) 10 mg tablet Take 1 tablet by mouth daily at bedtime. - verapamil SR (CALAN SR) 120 mg CR tablet Take 1 tablet by mouth once daily. - famotidine (PEPCID) 20 mg tablet Take 1 tablet by mouth twice daily. - aspirin 81 mg cap Take 81 mg by mouth once daily. - multivitamin (MULTIPLE VITAMINS ORAL) Take by mouth. Problem List As Of Date 09/05/2024 Noted Resolved Palpitations [R00.2] 10/20/2007 10/14/2015 Lumbago [M54.50] 10/20/2007 03/16/2014 Dermatophytosis of nail [B35.1] 10/20/2007 06/16/2013 Overweight(278.02) [E66.3] 10/20/2007 10/14/2015 Other and unspecified hyperlipidemia [E78.5] 01/01/2009 10/14/2015 MVP (mitral valve prolapse) [I34.1] 11/06/2010 12/12/2021 Cervicalgia [M54.2] 12/09/2011 Epigastric pain [R10.13] 06/12/2013 10/14/2015 Family history of ischemic heart disease [Z82.4*04/27/2014 Dysuria [R30.0] 01/08/2015 10/14/2015 Bilateral flank pain [R10.9] 01/08/2015 10/14/2015 Vaginal discharge [N89.8] 01/08/2015 10/14/2015 History of myositis [Z87.39] 01/08/2015 Lumbago [M54.50] 01/08/2015 Hyperlipidemia [E78.5] 10/14/2015 Atypical chest pain [R07.89] 10/14/2015 Raynaud's phenomenon without gangrene [I73.00] 05/31/2017 Lumbar disc herniation [M51.26] 03/20/2020 Annular tear of lumbar disc [M51.369] 03/20/2020 Encounter Status:Closed by REYNALDO WHATLEY on 09/05/24 [facility] 08-24-2024 CNPN Telephone (CATHMN) JUSTINE BERGERON ([id number]) 1970 F Date Time Provider Department 08/24/24 QUINTANA, JIMMY G CATHMN During your visit today, we recorded the following information about you: Luis Ricks 08/24/2024 11:34 AM Signed Office called to inform pt the doctor will not be in the office on 09/04. Rescheduling appt to 09/20 at 11:00; left message. Office sent MyChart message too. Emailed desk F14 Allergies As of Date: 08/24/2024 Noted Allergy Reaction LEVAQUIN (LEVOFLOXACIN) 06/24/2011 14 - Other: See Comments Comments: Numbness, palpitations ALEVE (NAPROXEN SODIUM) 05/18/2013 14 - Other: See Comments Comments: BP elevation CODEINE 10/20/2007 8 - GI Upset Comments: Heart pounding EPINEPHRINE 05/14/2020 14 - Other: See Comments Comments: Heart races. Heart palpitations. Date Reviewed: 06/06/2024 Reviewed by: Christianne Olsen OCCA - Fully Assessed Reason for Visit: Appointment Rescheduled [1024] Prescriptions as of 08/24/2024 - cyclobenzaprine (FLEXERIL) 5 mg tablet Take 1 tablet by mouth daily at bedtime. Take 5 mg at bedtime. Gradually increase to three times a day as tolerated - metoprolol succinate ER (TOPROL XL) 50 mg 24 hr tablet Take 1 tablet by mouth once daily. - rosuvastatin (CRESTOR) 10 mg tablet Take 1 tablet by mouth daily at bedtime. - verapamil SR (CALAN SR) 120 mg CR tablet Take 1 tablet by mouth once daily. - famotidine (PEPCID) 20 mg tablet Take 1 tablet by mouth twice daily. - aspirin 81 mg cap Take 81 mg by mouth once daily. - multivitamin (MULTIPLE VITAMINS ORAL) Take by mouth. Problem List As Of Date 08/24/2024 Noted Resolved Palpitations [R00.2] 10/20/2007 10/14/2015 Lumbago [M54.50] 10/20/2007 03/16/2014 Dermatophytosis of nail [B35.1] 10/20/2007 06/16/2013 Overweight(278.02) [E66.3] 10/20/2007 10/14/2015 Other and unspecified hyperlipidemia [E78.5] 01/01/2009 10/14/2015 MVP (mitral valve prolapse) [I34.1] 11/06/2010 12/12/2021 Cervicalgia [M54.2] 12/09/2011 Epigastric pain [R10.13] 06/12/2013 10/14/2015 Family history of ischemic heart disease [Z82.4*04/27/2014 Dysuria [R30.0] 01/08/2015 10/14/2015 Bilateral flank pain [R10.9] 01/08/2015 10/14/2015 Vaginal discharge [N89.8] 01/08/2015 10/14/2015 History of myositis [Z87.39] 01/08/2015 Lumbago [M54.50] 01/08/2015 Hyperlipidemia [E78.5] 10/14/2015 Atypical chest pain [R07.89] 10/14/2015 Raynaud's phenomenon without gangrene [I73.00] 05/31/2017 Lumbar disc herniation [M51.26] 03/20/2020 Annular tear of lumbar disc [M51.369] 03/20/2020 Encounter Status:Closed by LUIS RICKS on 08/24/24 [facility] CNOVon 06-06-2024 CNOV Office Visit (DERMMN ) JUSTINE BERGERON ([id number]) 1970 F Date Time Provider Department 06/06/24 2:40 PM CARLTON PABON DERMMN During your visit today, we recorded the following information about you: Christianne Olsen OCCA 06/06/2024 2:17 PM Signed [employer] [employer] Thank you for allowing me to examine you for signs of skin cancer today. We had an opportunity to discuss my findings and any treatments I recommended. I believe that there are several steps that a person can do to help prevent skin cancers and to detect them at an early, treatable stage: 1. I highly recommend that once a month you perform your own complete skin check looking for changing or unusual spots. Use a wall-mounted mirror and a hand mirror to assist in seeing body areas that are difficult to see otherwise. If you have a family member that can assist, this is often helpful. Additional information can be obtained at: www.skincancer.org/ski a-ninkba-smjjbpzeffl/e katty-detection 2. In many cases, skin cancer can be prevented. The best way to protect yourself is to avoid too much sun and sunburns. Health care providers believe that ultraviolet rays (UV rays) from the sun damage the skin and over time lead to skin cancer. Here are ways to protect yourself: -Don't spend long periods of time in direct sunlight. -Wear hats with brims to protect your face and ears. -Wear long-sleeved shirts and pants to protect your arms and legs. -Use broad spectrum sunscreens with a SPF (skin protection factor) of 30 or higher that protect against burning and tanning rays. Apply the lotion 30 minutes before you go outside. (Broad-spectrum sunscreens protect against UV-B and UV-A rays.) -Wear sunglasses to protect your eyes. -Use a lip balm with sunscreen. -Avoid the sun between 10am and 4pm. -Show any changing mole to your health care provider. Carlton Pabon MD 06/06/2024 4:01 PM Signed Established patient Chief Complaint: skin check History of Present Ilness: Justine Bergeron is a 53 year old female Patient is here for: 1) rash- itchy Current treatment none -thought she had a few bug bites Located on the neck Using retinol on the neck and face 2) lesion on left mid back - gets irritated with bra strap Pertinent Past Medical History: History of skin cancer or atypical nevi Yes BCC right anterior mandible s/p Mohs 07/12/2023 Specialty Problems None Pertinent Family medical history: History of melanoma Yes maternal great uncle with melanoma Review of Systems: Constitutional: Denies fever, chills, night sweats, unintentional weight loss. Skin per HPI. No other new/concerning skin growth. Physical Exam: General: well appearing, of stated age, in no acute distress Neurology: alert and oriented times three Psychiatry: in a happy mood Skin: Guardado skin type: II Skin exam performed of face, scalp, ears, eyelids, lips, neck, chest, abdomen, back, bilateral upper extremities, hands, fingers, fingernails, bilateral lower extremities, feet, toes, toenails: Skin exam normal with the exception of: -Yañez macules in sun exposed areas - Involving trunk and extremities are numerous yañez, stuck-on appearing keratotic papules - Scattered on the trunk and extremities are numerous pigmented macules and papules with reassuring clinical and dermatoscopic features - Scattered on torso are numerous red, round discrete vascular papules -light brown waxy papule on the scalp -left upper back: skin colored pedunculated papule -well healed scar on right cheek with no signs of recurrence Assessment and Plan: #Contact dermatitis - Suspect 2/2 OTC retinol - Recommend to pause retinol for a few days, ok to continue when itching stopped #Hx of NMSC - Scar well healed without evidence of recurrence - Recommend FBSE every 6 months #Clinically benign-appearing skin lesions including: lentigines, siegel angiomas, multiple benign nevi, seborrheic keratoses, acrochordon -Reassurance provided regarding the benign nature of these lesions -Recommend monthly self skin exam. Return for new, changing or otherwise concerning skin lesions. -Recommend daily sun protection with broad-spectrum sunscreen SPF 30+, avoidance of sun during peak hours, and sun protective clothing. Return to clinic 6 months for FBSE or sooner if something concerning arises. The documentation for this note was completed by DAYNE Mccarthy acting as scribe for Carlton Pabon MD. June 06, 2024 2:16 PM. I agree with the Chief Complaint, ROS, and Past Histories independently gathered by the clinical retail support associate and the remaining scribed note accurately describes my personal service to the patient. Carlton Pabon MD June 06, 2024 Medical Decision Making: Problems: Low: 2+ self-limited or minor problems and Stable chronic ill (more content not included)... Normal [facility] 25-hydroxyvitamin D3 [Mass/Vol] 42.2 ng/mL Normal 31.0-80.0 [facility] Comment on above: Order Comment: Speci men Type: BLOOD SPECIMENOrdering Facility: [facility] Address: [address] [place] [address] Result Comment: Clas sification of 25 OH Vitamin D status: Deficiency/Insufficiency: < or = 30 ng/ml. Sufficiency/Optimal Levels: 31-80 ng/mL Toxicity: > 100 ng/mL. Test performed by chemiluminescent immunoassay. Performed By: #### 1 989-3 ####[facility] LABCLIA [id number] [place] [address] [place] CBC W Auto Differential pane l (Bld)on 06-01-2024 Basophils (Bld) [#/Vol] 0.04 10*3/uL Normal <0.11 [facility] Comment on above: Order Comment: Speci men Type: BLOOD SPECIMENOrdering Facility: [facility] Address: [address] [place] [address] Performed By: #### 5 7021-8 ####[facility] LABCLIA [id number] [place] [address] [place] Basophils/100 WBC (Bld) 1.0 % Normal [facility] Comment on above: Order Comment: Speci men Type: BLOOD SPECIMENOrdering Facility: [facility] Address: [address] [place] [address] Performed By: #### 5 7021-8 ####[facility] LABCLIA [id number] [place] [address] [place] Differential cell count method Nom (Bld) Auto Normal [facility] Comment on above: Order Comment: Speci men Type: BLOOD SPECIMENOrdering Facility: [facility] Address: [address] [place] [address] Performed By: #### 5 7021-8 ####[facility] LABCLIA [id number] [place] [address] [place] Eosinophils (Bld) [#/Vol] 0.13 10*3/uL Normal <0.46 [facility] Comment on above: Order Comment: Speci men Type: BLOOD SPECIMENOrdering Facility: [facility] Address: [address] [place] [address] Performed By: #### 5 7021-8 ####[facility] LABCLIA [id number] [place] [address] [place] Eosinophils/100 WBC (Bld) 3.1 % Normal [facility] Comment on above: Order Comment: Speci men Type: BLOOD SPECIMENOrdering Facility: [facility] Address: [address] [place] [address] Performed By: #### 5 7021-8 ####[facility] LABCLIA [id number] [place] [address] [place] Erythrocyte distribution width (RBC) [Ratio] 11.8 % Normal 11.5-15.0 [facility] Comment on above: Order Comment: Speci men Type: BLOOD SPECIMENOrdering Facility: [facility] Address: [address] [place] [address] Performed By: #### 5 7021-8 ####[facility] LABCLIA [id number] [place] [address] [place] Hematocrit (Bld) [Volume fraction] 37.2 % Normal 36.0-46.0 [facility] Comment on above: Order Comment: Speci men Type: BLOOD SPECIMENOrdering Facility: [facility] Address: [address] [place] [address] Performed By: #### 5 7021-8 ####[facility] LABCLIA [id number] [place] [address] [place] Hemoglobin (Bld) [Mass/Vol] 12.3 g/dL Normal 11.5-15.5 [facility] Comment on above: Order Comment: Speci men Type: BLOOD SPECIMENOrdering Facility: [facility] Address: [address] [place] [address] Performed By: #### 5 7021-8 ####[facility] LABCLIA [id number] [place] [address] [place] Immature granulocytes (Bld) [#/Vol] 10*3/uL Normal <0.10 [facility] Comment on above: Order Comment: Speci men Type: BLOOD SPECIMENOrdering Facility: [facility] Address: [address] [place] [address] Performed By: #### 5 7021-8 ####[facility] LABCLIA [id number] [place] [address] [place] Immature granulocytes/100 WBC (Bld) 0.2 % Normal [facility] Comment on above: Order Comment: Speci men Type: BLOOD SPECIMENOrdering Facility: [facility] Address: [address] [place] [address] Performed By: #### 5 7021-8 ####[facility] LABCLIA [id number] [place] [address] [place] Lymphocytes (Bld) [#/Vol] 1.90 10*3/uL Normal 1.00-4.00 [facility] Comment on above: Order Comment: Speci men Type: BLOOD SPECIMENOrdering Facility: [facility] Address: [address] [place] [address] Performed By: #### 5 7021-8 ####[facility] LABCLIA [id number] [place] [address] [place] Lymphocytes/100 WBC (Bld) 45.5 % Normal [facility] Comment on above: Order Comment: Speci men Type: BLOOD SPECIMENOrdering Facility: [facility] Address: [address] [place] [address] Performed By: #### 5 7021-8 ####[facility] LABCLIA [id number] [place] [address] [place] MCH (RBC) [Entitic mass] 31.1 pg Normal 26.0-34.0 [facility] Comment on above: Order Comment: Speci men Type: BLOOD SPECIMENOrdering Facility: [facility] Address: [address] [place] [address] Performed By: #### 5 7021-8 ####[facility] LABCLIA [id number] [place] [address] [place] MCHC (RBC) [Mass/Vol] 33.1 g/dL Normal 30.5-36.0 [facility] Comment on above: Order Comment: Speci men Type: BLOOD SPECIMENOrdering Facility: [facility] Address: [address] [place] [address] Performed By: #### 5 7021-8 ####[facility] LABCLIA [id number] [place] [address] [place] MCV (RBC) [Entitic vol] 94.2 fL Normal 80.0-100.0 [facility] Comment on above: Order Comment: Speci men Type: BLOOD SPECIMENOrdering Facility: [facility] Address: [address] [place] [address] Performed By: #### 5 7021-8 ####[facility] LABCLIA [id number] [place] [address] [place] Monocytes (Bld) [#/Vol] 0.47 10*3/uL Normal <0.87 [facility] Comment on above: Order Comment: Speci men Type: BLOOD SPECIMENOrdering Facility: [facility] Address: [address] [place] [address] Performed By: #### 5 7021-8 ####[facility] LABCLIA [id number] [place] [address] [place] Monocytes/100 WBC (Bld) 11.2 % Normal [facility] Comment on above: Order Comment: Speci men Type: BLOOD SPECIMENOrdering Facility: [facility] Address: [address] [place] [address] Performed By: #### 5 7021-8 ####[facility] LABCLIA [id number] [place] [address] [place] Neutrophils (Bld) [#/Vol] 1.63 10*3/uL Normal 1.45-7.50 [facility] Comment on above: Order Comment: Speci men Type: BLOOD SPECIMENOrdering Facility: [facility] Address: [address] [place] [address] Performed By: #### 5 7021-8 ####[facility] LABCLIA [id number] [place] [address] [place] Neutrophils/100 WBC (Bld) 39.0 % Normal [facility] Comment on above: Order Comment: Speci men Type: BLOOD SPECIMENOrdering Facility: [facility] Address: [address] [place] [address] Performed By: #### 5 7021-8 ####[facility] LABCLIA [id number] [place] [address] [place] Nucleated RBC (Bld) [#/Vol] 10*3/uL Normal <0.01 [facility] Comment on above: Order Comment: Speci men Type: BLOOD SPECIMENOrdering Facility: [facility] Address: [address] [place] [address] Performed By: #### 5 7021-8 ####[facility] LABCLIA [id number] [place] [address] [place] Nucleated RBC/100 WBC (Bld) [Ratio] 0.0 /100 WBC Normal [facility] Comment on above: Order Comment: Speci men Type: BLOOD SPECIMENOrdering Facility: [facility] Address: [address] [place] [address] Performed By: #### 5 7021-8 ####[facility] LABCLIA [id number] [place] [address] [place] Platelet mean volume (Bld) [Entitic vol] 10.6 fL Normal 9.0-12.7 [facility] Comment on above: Order Comment: Speci men Type: BLOOD SPECIMENOrdering Facility: [facility] Address: [address] [place] [address] Performed By: #### 5 7021-8 ####[facility] LABCLIA [id number] [address] [address] [place] Platelets (Bld) [#/Vol] 245 10*3/uL Normal 150-400 [facility] Comment on above: Order Comment: Speci men Type: BLOOD SPECIMENOrdering Facility: [facility] Address: [address] [place] [address] Performed By: #### 5 7021-8 ####[facility] LABCLIA [id number] [place] [address] [place] RBC (Bld) [#/Vol] 3.95 10*6/uL Normal 3.90-5.20 [facility] Comment on above: Order Comment: Speci men Type: BLOOD SPECIMENOrdering Facility: [facility] Address: [address] [place] [address] Performed By: #### 5 7021-8 ####[facility] LABCLIA [id number] [place] [address] [place] WBC (Bld) [#/Vol] 4.18 10*3/uL Normal 3.70-11.00 [facility] Comment on above: Order Comment: Speci men Type: BLOOD SPECIMENOrdering Facility: [facility] Address: [address] [place] [address] Performed By: #### 5 7021-8 ####[facility] LABCLIA [id number] [place] [id number] [place] Comprehensive metabolic 2000 panelon 06-01-2024 Albumin [Mass/Vol] 4.0 g/dL Normal 3.9-4.9 [facility] Comment on above: Order Comment: Speci men Type: BLOOD SPECIMENOrdering Facility: [facility] Address: [address] [place] [address] Performed By: #### 3 016-3, 85782-1, 31130-9, ####[facility] LABCLIA [id number] [place] [address] [place] ALP [Catalytic activity/Vol] 42 U/L Normal 34-123 [facility] Comment on above: Order Comment: Speci men Type: BLOOD SPECIMENOrdering Facility: [facility] Address: [address] [place] [address] Performed By: #### 3 016-3, 47650-3, 82198-2, ####[facility] LABCLIA [id number] [place] [address] [place] ALT [Catalytic activity/Vol] 18 U/L Normal 7-38 [facility] Comment on above: Order Comment: Speci men Type: BLOOD SPECIMENOrdering Facility: [facility] Address: [address] [place] [address] Performed By: #### 3 016-3, 87607-1, 32140-9, ####[facility] LABCLIA [id number] [place] [address] [place] Anion gap [Moles/Vol] 11 mmol/L Normal 8-15 [facility] Comment on above: Order Comment: Speci men Type: BLOOD SPECIMENOrdering Facility: [facility] Address: [address] [place] [address] Performed By: #### 3 016-3, 26305-0, 92829-8, 47639-9 ####[facility] LABCLIA [id number] [place] [address] [place] AST [Catalytic activity/Vol] 36 U/L High 13-35 [facility] Comment on above: Order Comment: Speci men Type: BLOOD SPECIMENOrdering Facility: [facility] Address: [address] [place], [place] [address] Performed By: #### 3 016-3, 68147-6, 17243-7, 02746-8 ####[facility] LABCLIA [id number] [address] [address] [place] Bilirubin [Mass/Vol] 0.6 mg/dL Normal 0.2-1.3 [facility] Comment on above: Order Comment: Speci men Type: BLOOD SPECIMENOrdering Facility: [facility] Address: [address] [place] [address] Performed By: #### 3 016-3, 00950-1, 02669-1, 85719-9 ####[facility] LABCLIA [id number] [place] [address] [place] Calcium [Mass/Vol] 9.5 mg/dL Normal 8.5-10.2 [facility] Comment on above: Order Comment: Speci men Type: BLOOD SPECIMENOrdering Facility: [facility] Address: [address] [place] [address] Performed By: #### 3 016-3, 20661-8, 23003-2, 92221-6 ####[facility] LABCLIA [id number] [place] [address] [place] Chloride [Moles/Vol] 104 mmol/L Normal 98-107 [facility] Comment on above: Order Comment: Speci men Type: BLOOD SPECIMENOrdering Facility: [facility] Address: [address] [place], [place] [address] Performed By: #### 3 016-3, 64696-6, 60700-3, 09689-9 ####[facility] LABCLIA [id number] [place] [address] [place] CO2 [Moles/Vol] 27 mmol/L Normal 22-30 [facility] Comment on above: Order Comment: Speci men Type: BLOOD SPECIMENOrdering Facility: [facility] Address: [address] [place] [address] Performed By: #### 3 016-3, 26278-2, 90246-9, 63468-2 ####[facility] LABIA [id number] [place] [address] [place] Creatinine [Mass/Vol] 0.75 mg/dL Normal 0.58-0.96 [facility] Comment on above: Order Comment: Specannie men Type: BLOOD SPECIMENOrdering Facility: [facility] Address: [address] [place] [address] Performed By: #### 3 016-3, 40809-7, 63843-6, ####[facility] [id number] [address] [place] Creatinine and Glomerular filtration rate.predicted panel (S/P/Bld) 95 mL/min/1.73m??? Normal >=60 [facility] Comment on above: Order Comment: Christian men Type: BLOOD SPECIMENOrdering Facility: [facility] Address: [address] [place] [address] Result Comment: Radha mated Glomerular Filtration Rate (eGFR) is calculated using the 2020 CKD-EPI creatinine equation. This equation utilizes serum creatinine, sex, and age as parameters. The creatinine assay has traceable calibration to isotope dilution-mass spectrometry. Refer to KDIGO guidelines for clinical interpretation. In patients with unstable renal function, e.g. those with acute kidney injury, the eGFR may not accurately reflect actual GFR. Performed By: #### 3 016-3, 55073-6, 51525-9, ####[facility] [id number] [place] [id number] [place] Glucose [Mass/Vol] 92 mg/dL Normal 74-99 [facility] Comment on above: Order Comment: Christian men Type: BLOOD SPECIMENOrdering Facility: [facility] Address: [address] [place] [address] Result Comment: The [place] Diabetes Association (ADA) provides guidance for cutoff values for fasting glucose and random glucose. The ADA defines fasting as no caloric intake for at least 8 hours. Fasting plasma glucose results between 100 to 125 mg/dL indicate increased risk for diabetes (prediabetes). Fasting plasma glucose results greater than or equal to 126 mg/dL meet the criteria for diagnosis of diabetes. In the absence of unequivocal hyperglycemia, results should be confirmed by repeat testing. In a patient with classic symptoms of hyperglycemia or hyperglycemic crisis, random plasma glucose results greater than or equal to 200 mg/dL meet the criteria for diagnosis of diabetes. Reference: Standards of Medical Care in Diabetes 2016, [place] [employer] Association. Diabetes Care. 2016.39(Suppl 1). Performed By: #### 3 016-3, 19499-9, 60963-6, ####[facility] LABIA [id number] [place] [address] [place] Potassium [Moles/Vol] 4.4 mmol/L Normal 3.7-5.1 [facility] Comment on above: Order Comment: Speci men Type: BLOOD SPECIMENOrdering Facility: [facility] Address: [address] [place] [address] Performed By: #### 3 016-3, 46125-3, 41132-0, ####[facility] LABIA [id number] [place] [address] [place] Protein [Mass/Vol] 6.5 g/dL Normal 6.3-8.0 [facility] Comment on above: Order Comment: Speci men Type: BLOOD SPECIMENOrdering Facility: [facility] Address: [address] [place] [address] Performed By: #### 3 016-3, 49119-8, 58390-4, ####[facility] LABIA [id number] [place] [address] [place] Sodium [Moles/Vol] 142 mmol/L Normal 136-144 [facility] Comment on above: Order Comment: Speci men Type: BLOOD SPECIMENOrdering Facility: [facility] Address: [address] [place] [id number] Performed By: #### 3 016-3, 51538-9, 86510-4, ####[facility] LABCLIA [id number] [place] [address] [place] Urea nitrogen [Mass/Vol] 17 mg/dL Normal 7-21 [facility] Comment on above: Order Comment: Speci men Type: BLOOD SPECIMENOrdering Facility: [facility] Address: [address] [place] [address] Performed By: #### 3 016-3, 11856-3, 07105-1, ####[facility] LABCLIA [id number] [place] [address] [place] Lipid 1996 panelon 4 Cholesterol [Mass/Vol] 154 mg/dL Normal <[address] [facility] Comment on above: Order Comment: Speci men Type: BLOOD SPECIMENOrdering Facility: [facility] Address: [address] [place] [address] Result Comment: <200 mg/dL, Desirable 200-239 mg/dL, Borderline high >239 mg/dL, High Performed By: #### 3 016-3, 60550-8, 52670-4, ####[facility] LABCLIA [id number] [place] [address] [place] Cholesterol in HDL [Mass/Vol] 60 mg/dL Normal >39 [facility] Comment on above: Order Comment: Speci men Type: BLOOD SPECIMENOrdering Facility: [facility] Address: [address] [place] [address] Result Comment: 40-5 9 mg/dL, Acceptable >59 mg/dL, High: Negative risk factor for coronary heart disease <40 mg/dL, Low: Positive risk factor for coronary heart disease Performed By: #### 3 016-3, 59459-6, 01550-6, ####[facility] LABCLIA [id number] [place] [id number] [place] Cholesterol in LDL [Mass/Vol] 85 mg/dL Normal <100 [facility] Comment on above: Order Comment: Christian men Type: BLOOD SPECIMENOrdering Facility: [facility] Address: [address] [place] [address] Result Comment: <100 mg/dL, Optimal 100-129 mg/dL, Near optimal/above optimal 130-159 mg/dL, Borderline high 160-189 mg/dL, High >189 mg/dL, Very high Secondary prevention optimal LDL Cholesterol levels are recommended to be < 70 mg/dL Performed By: #### 3 016-3, 56747-6, 58193-5, 92109-0 ####[facility] LABCLIA [id number] [address] [place] Cholesterol in LDL/Cholesterol in HDL [Mass ratio] 1.42 {ratio} Normal <2.54 [facility] Comment on above: Order Comment: Christian sears Type: BLOOD SPECIMENOrdering Facility: [facility] Address: [address] [place] [address] Result Comment: Refe rence: 1. National Cholesterol Education Program ATP III Guideline At-A-Glance Quick Desk Reference: National Heart, Lung, and Blood [place]. National Institutes of Health. 2001: NIH Publication No. 01-3305. 2. An International Atherosclerosis Society position paper: global recommendations for the management of dyslipidemia: executive summary, Atherosclerosis. 2014: 232(2):410-413. Performed By: #### 3 016-3, 47362-2, 11280-5, 72749-9 ####[facility] LABCLIA [id number] [place] [address] [place] Cholesterol in VLDL [Mass/Vol] 9 mg/dL Normal <30 [facility] Comment on above: Order Comment: Christian men Type: BLOOD SPECIMENOrdering Facility: [facility] Address: [address] [place] [address] Performed By: #### 3 016-3, 42208-0, 93899-6, 41015-8 ####[facility] LABCLIA [id number] [place] [address] [place] Cholesterol non HDL [Mass/Vol] 94 mg/dL Normal <130 [facility] Comment on above: Order Comment: Speci men Type: BLOOD SPECIMENOrdering Facility: [facility] Address: [address] [place] [address] Result Comment: <130 mg/dL, Optimal 130-159 mg/dL, Near optimal/above optimal 160-189 mg/dL, Borderline high 190-219 mg/dL, High >219 mg/dL, Very high Secondary prevention optimal non HDL Cholesterol levels are recommended to be <100 mg/dL Performed By: #### 3 016-3, 97057-0, 18555-7, ####[facility] LABCLIA [id number] [place] [address] [place] Cholesterol.total/Chol esterol in HDL [Mass ratio] 2.57 {ratio} Normal <5.10 [facility] Comment on above: Order Comment: Speci men Type: BLOOD SPECIMENOrdering Facility: [facility] Address: [address] [place] [address] Performed By: #### 3 016-3, 04166-8, 71737-5, ####[facility] LABCLIA [id number] [place] [address] [place] FASTING TIME 12 hrs Normal [facility] Comment on above: Order Comment: Speci men Type: BLOOD SPECIMENOrdering Facility: [facility] Address: [address] [place] [address] Performed By: #### 3 016-3, 73645-4, 52107-1, ####[facility] LABCLIA [id number] [place] [address] [place] Triglyceride [Mass/Vol] 47 mg/dL Normal <150 [facility] Comment on above: Order Comment: Speci men Type: BLOOD SPECIMENOrdering Facility: [facility] Address: [facility] [place] [address] Result Comment: <150 mg/dL, Normal 150-199 mg/dL, Borderline high 200-499 mg/dL, High >499 mg/dL, Very high Performed By: #### 3 016-3, 78561-6, 82724-5, ####[facility] LABCLIA [id number] [place] [address] [place] Magnesium SerPl-mCncon 06-01 Magnesium [Mass/Vol] 2.0 mg/dL Normal 1.7-2.3 [facility] Comment on above: Order Comment: Speci men Type: BLOOD SPECIMENOrdering Facility: [facility] Address: [address] [place] [address] Performed By: #### 3 016-3, 04526-7, 39737-2, ####[facility] LABCLIA [id number] [place] [address] [place] TSH SerPl-aCncon 06-01-2024 TSH Qn 1.310 m[IU]/L Normal 0.270-4.200 [facility] Comment on above: Order Comment: Speci men Type: BLOOD SPECIMENOrdering Facility: [facility] Address: [address] [place] [address] Performed By: #### 3 016-3, 04585-1, 63413-8, ####[facility] LABCLIA [id number] [place] [address] [place] Vit B12 SerPl-mCncon 024 Cobalamin (Vitamin B12) [Mass/Vol] 352 pg/mL Normal 232-1245 [facility] Comment on above: Order Comment: Speci men Type: BLOOD SPECIMENOrdering Facility: [facility] Address: [address] [place] [address] Performed By: #### 2 132-9 ####[facility] LABCLIA [id number] [address] [address] [place] CNOVon 05-31-2024 CNOV Office Visit (INTMWS ) JUSTINE BERGERON ([id number]) 1970 F Date Time Provider Department 05/31/24 2:40 PM SYDNEE SUMNER INTMWS During your visit today, we recorded the following information about you: Pulse Blood pressure Weight Height 70/minute 115/78 66.8 kg 1.499 m Last Period 02/07/24 Sydnee Sumner APRN.[employer] SERVICE MANAGER 05/31/2024 3:17 PM Signed CHIEF COMPLAINT: Patient presents with: Physical HISTORY: Justine Bergeron is a 53 year old female who presents 05/31/2024 for her Yearly Physical Exam. They are here today for a wellness exam. Generally feels well and does not have complaints. Is able to complete ADL's with independence. Occasional swelling in legs at the end of the day. Not big into salt. Kiki-menopausal right now. Noticing being more forgetful. Having some weight gain. Still some pain in her back on occasion. 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 Past Medical History: PAST MEDICAL HISTORY Diagnosis Date Anemia treated with iron in past Arthritis Displacement of intervertebral disc, site unspecified, without myelopathy cervical and lower back Family history of early CAD Fibromyalgia Heart murmur Mammographic microcalcification Mitral valve disorders(424.0) MVP MVP (mitral valve prolapse) 11/06/2010 Near syncope Other and unspecified hyperlipidemia 2020 told high age 22 on RX on and off in past Seizure (HCC) pt told absent seizure' during dental appointment no workup Family Medical History: FAMILY HISTORY Problem Relation Age of Onset Hypertension Mother Diabetes Mother Stroke Mother 62 carotid disease other (CABG) Mother 67 Cancer Father Heart Father 64 PA coronary stent Heart Brother 37 PA 3 stents Hypertension Brother other (Hemophelia) Brother Uterine Fibroids Brother Hypertension Maternal Grandmother other (Myocardial infarction) Maternal Grandfather 54 Diabetes Maternal Grandfather Breast Cancer Paternal Grandmother other (Myocardidal infarction) Paternal Grandmother 80 3 stents other (brain bleeding) Paternal Grandmother other (cousins) Other Mi' age 41-42 Maternal Social History: Social History Tobacco Use Smoking status: Never Smokeless tobacco: Never Vaping Use Vaping status: Never Used Substance Use Topics Alcohol use: Yes Comment: 1-2 wine or beer a week Drug use: No Allergies: ALLERGIES Allergen Reactions Levaquin [Levofloxa* Other: See Comments Numbness, palpitations Aleve [Naproxen Sod* Other: See Comments BP elevation Codeine GI Upset Heart pounding Epinephrine Other: See Comments Heart races. Heart palpitations. Medications: Current Outpatient Medications Medication Sig metoprolol succinate ER (TOPROL XL) 50 mg 24 hr tablet Take 1 tablet by mouth once daily. rosuvastatin (CRESTOR) 10 mg tablet Take 1 tablet by mouth daily at bedtime. verapamil SR (CALAN SR) 120 mg CR tablet Take 1 tablet by mouth once daily. famotidine (PEPCID) 20 mg tablet Take 1 tablet by mouth twice daily. aspirin 81 mg cap Take 81 mg by mouth once daily. multivitamin (MULTIPLE VITAMINS ORAL) Take by mouth. cyclobenzaprine (FLEXERIL) 5 mg tablet Take 1 tablet by mouth daily at bedtime. Take 5 mg at bedtime. Gradually increase to three times a day as tolerated No current facility-administered medications for this visit. Chronic Problem List: ACTIVE PROBLEM LIST Lumbar Disc Herniation - 03/20/2020 Annular Tear of Lumbar Disc - 03/20/2020 Raynaud's Phenomenon Without Gangrene - 05/31/2017 Hyperlipidemia - 10/14/2015 Atypical Chest Pain - 10/14/2015 History of Myositis - 01/08/2015 Lumbago - 01/08/2015 Family History of Ischemic Heart Disease - 04/27/2014 Cervicalgia - 12/09/2011 Review of Systems Review of Systems Constitutional: Negative. Respiratory: Negative. Cardiovascular: Negative. OBJECTIVE BP 115/78 Pulse 70 Ht 4' 11 (1.50m) Wt 147 lb 4.3 oz (66.8kg) LMP 02/07/2024 BMI 29.73 kg/(m2). Physical Exam Vitals and nursing note reviewed. Constitutional: General: She is awake. She is not in acute distress. Appearance: Normal appearance. She is well-developed and well-groomed. She is not ill-appearing, toxic-appearing or diaphoretic. HENT: Head: Normocephalic. Right Ear: External ear normal. Left Ear: External ear normal. Nose: Nose normal. Eyes: General: Vision grossly intact. Conjunctiva/sclera: Conjunctivae normal. Pupils: Pupils are equal, round, and reactive to light. Neck: (more content not included)... Normal [facility] XR Thoracic spine AP and Lat [facility] 10-11-2023 IMPRESSION: Thoracic spine degenerative changes as described above. Wire Brusher: LESLIE Transcribe Date/Time: Oct 11 2023 5:28P Dictated by : MABLE POLANCO MD This examination was interpreted and the report reviewed and electronically signed by: MABLE POLANCO MD on Oct 11 2023 5:29PM [facility] DIVISION OF RADIOLOGY * * *Final Report* * * DATE OF EXAM: Oct 11 2023 3:26PM WOX [id number] - XR THORACIC 2V AP/LAT / PROCEDURE REASON: Acute left-sided thoracic back pain * * * * Physician Interpretation * * * * EXAM TITLE: XR THORACIC 2V AP/LAT EXAM DATE/TIME: 10/11/2023 3:26 PM COMPARISON: None. CLINICAL INDICATION/HISTORY: Back pain. TECHNIQUE: AP, swimmer's and lateral views of the thoracic spine are presented FINDINGS: No fractures or subluxations are noted. Disc space narrowing seen in the mid thoracic spine. There is moderate osteophyte formation. There is no paraspinal mass or bony destructive process. DIVISION OF RADIOLOGY Provider, Rocco Monsalve - 10/11/2023 * * *Final Report* * * DATE OF EXAM: Oct 11 2023 3:26PM WOX [id number] - XR THORACIC 2V AP/LAT / PROCEDURE REASON: Acute left-sided thoracic back pain * * * * Physician Interpretation * * * * EXAM TITLE: XR THORACIC 2V AP/LAT EXAM DATE/TIME: 10/11/2023 3:26 PM COMPARISON: None. CLINICAL INDICATION/HISTORY: Back pain. TECHNIQUE: AP, swimmer's and lateral views of the thoracic spine are presented FINDINGS: No fractures or subluxations are noted. Disc space narrowing seen in the mid thoracic spine. There is moderate osteophyte formation. There is no paraspinal mass or bony destructive process. IMPRESSION IMPRESSION: Thoracic spine degenerative changes as described above. Wire Brusher: PSCB Transcribe Date/Time: Oct 11 2023 5:28P Dictated by : MABLE POLANCO MD This examination was interpreted and the report reviewed and electronically signed by: MABLE POLANCO MD on Oct 11 2023 5:29PM EST [facility] Radiology Study observation (narrative) [facility] XR Thoracic spine AP and Lat eralOrdered By: Ccf Provider on 10-11-2023 [facility] Thin prep Papanicolaou smear with manual screeningOrdered By: Mahsa Fischer on 09-11-2022 Genital Culture Streptococcus agalactiae (B) [facility] Culture, urineOrdered By: Richard Fischer on 09-10-2022 Bacteria identified Cx Nom (U) Culture exhibits no growth. [facility] Gram stain for investigation of transfusion reactionOrdered By: Mahsa Fischer on 09-09-2022 Microscopic observation Gram stain Nom (Unsp spec) [facility] Laboratory - Chemistry and C hemistry - challengeon 09-08-2022 Bilirubin Ql (U) Negative [facility] Glucose Ql (U) Negative [facility] Ketones Ql (U) Negative [facility] pH (U) 5.0 [pH] [facility] Specific gravity (U) [Rel density] 1.[address] [facility] Urobilinogen (U) [Mass/Vol] Negative [facility] Laboratory - Hematology and Cell countson 09-08-2022 Hemoglobin Ql (U) Moderate [facility] Laboratory - Specimen inform ationon 09-08-2022 Clarity (U) Clear [facility] Color (U) Yellow [facility] Laboratory - Urinalysison Nitrite Ql (U) Negative [facility] Protein Ql (U) Negative [facility] No Panel Informationon 09-08 Urine Leukocytes Negatve [facility] Urine Non-Hemolyzed Blood [facility] C3 COMPLEMENT [facility] 01-30-20 Complement C3 [Mass/Vol] 121 mg/dL 86 - 166 mg/dL [facility] C4 COMPLEMENT [facility] 01-30-20 Complement C4 [Mass/Vol] 29 mg/dL 13 - 46 mg/dL [facility] CBC W Auto Differential pane l (Bld)on 01-29-2022 Abs Immature Gran <0.03 <0.10 k/uL [facility] Basophils (Bld) [#/Vol] 0.06 10*3/uL <0.11 k/uL [facility] Basophils/100 WBC (Bld) 0.9 % [facility] Differential cell count method Nom (Bld) Auto [facility] Eosinophils (Bld) [#/Vol] 0.11 10*3/uL <0.46 k/uL [facility] Eosinophils/100 WBC (Bld) 1.6 % [facility] Erythrocyte distribution width (RBC) [Ratio] 11.9 % 11.5 - 15.0 % [facility] Hematocrit (Bld) [Volume fraction] 37.7 % 36.0 - 46.0 % [facility] Hemoglobin (Bld) [Mass/Vol] 12.3 g/dL 11.5 - 15.5 g/dL [facility] Immature Gran % 0.3 % [facility] Lymphocytes (Bld) [#/Vol] 1.80 10*3/uL 1.00 - 4.00 k/uL [facility] Lymphocytes/100 WBC (Bld) 26.7 % [facility] MCH (RBC) [Entitic mass] 30.7 pg 26.0 - 34.0 pg [facility] MCHC (RBC) [Mass/Vol] 32.6 g/dL 30.5 - 36.0 g/dL [facility] MCV (RBC) [Entitic vol] 94.0 fL 80.0 - 100.0 fL [facility] Monocytes (Bld) [#/Vol] 0.67 10*3/uL <0.87 k/uL [facility] Monocytes/100 WBC (Bld) 9.9 % [facility] Neutrophils (Bld) [#/Vol] 4.09 10*3/uL 1.45 - 7.50 k/uL [facility] Neutrophils/100 WBC (Bld) 60.6 % [facility] Nucleated RBC (Bld) [#/Vol] 10*3/uL <0.01 k/uL [facility] Nucleated RBC/100 WBC (Bld) [Ratio] 0.0 /100 WBC [facility] Platelet mean volume (Bld) [Entitic vol] 10.3 fL 9.0 - 12.7 fL [facility] Platelets (Bld) [#/Vol] 251 10*3/uL 150 - 400 k/uL [facility] RBC (Bld) [#/Vol] 4.01 10*6/uL 3.90 - 5.2 0 m/uL [facility] WBC (Bld) [#/Vol] 6.75 10*3/uL 3.70 - 11. 00 k/uL [facility] MAGNESIUM BLDon 01-29-2022 Magnesium [Mass/Vol] 1.9 mg/dL 1.7 - 2 .3 mg/dL [facility] No Panel Informationon 01-29 [facility] VITAMIN D 25 HYDROXYon 01-29 25-hydroxyvitamin D3 [Mass/Vol] 47.9 ng/mL 31.0 - 80.0 ng/mL [facility] CTA CORONARY W IVCONon 01-14 [facility] Basophil percentageon 2021 Chloride [Moles/Vol] 101 mmol/L 98-107 [facility] Work Phone: Glucose [Mass/Vol] 109 mg/dL 74-106 [facility] Work Phone: Comment on above: Fasting Glucose resu lt from 100 to 125 mg/dL suggests IMPAIRED HOMEOSTASIS per A.D.A. criteria. Potassium [Moles/Vol] 4.3 mmol/L 3.5-5.1 [facility] Work Phone: Sodium [Moles/Vol] 137 mmol/L 136-145 [facility] Work Phone: WBC (Bld) [#/Vol] 8.2 10*3/uL 4.4-11.0 [facility] Work Phone: Blood erythrocytes count (nu mber/volume)on 01-05-2022 RBC (Bld) [#/Vol] 4.33 10*6/uL 4.2-5.4 [facility] Work Phone: Blood hemoglobin measurement (mass/volume)on 01-05-2022 Hemoglobin (Bld) [Mass/Vol] 13.6 g/dL 12.0-15.[address] [facility] Work Phone: Blood platelet mean volumeon 01-05-2022 Platelet mean volume (Bld) [Entitic vol] 9.8 fL 6.2-12.[address] [facility] Work Phone: Determination of erythrocyte mean corpuscular volume (MCV)on 01-05-2022 MCV (RBC) [Entitic vol] 91.7 fL 81-[address] [facility] Work Phone: Hematocrit Auto (Bld) [Volum e fraction]on 01-05-2022 Hematocrit (Bld) [Volume fraction] 39.7 % 37-[address] [facility] Work Phone: Laboratory - Chemistry and C hemistry - challengeon 01-05-2022 CO2 [Moles/Vol] 29.0 mmol/L 21.0-32.[address] [facility] Work Phone: Urea nitrogen/Creatinine [Mass ratio] 21.3 mg/mg 10-[address] [facility] Work Phone: Laboratory - Hematology and Cell countson 01-05-2022 Erythrocyte distribution width (RBC) [Entitic vol] 38.2 fL 35.1-43.[address] [facility] Work Phone: Erythrocyte distribution width (RBC) [Ratio] 11.2 % 11.6-14.[address] [facility] Work Phone: MCH (RBC) [Entitic mass] 31.4 pg 27.0-32.[address] [facility] Work Phone: MCHC Auto (RBC) [Mass/Vol]on 05-09-2022 MCHC (RBC) [Mass/Vol] 34.3 g/dL 32-36 [facility] Work Phone: No Panel Informationon 01-05 Estimated Creatinine Clearance Calc 63.74 ml/min [facility] Work Phone: Estimated GFR (MDRD) Amer 104 mL/min >[address] [facility] Work Phone: Comment on above: GFR Calc Estimated GFR (MDRD) Non-Af Amer 86 mL/min >[address] [facility] Work Phone: Comment on above: Non- GFR Calc Platelets bldon 01-05-2022 Platelets (Bld) [#/Vol] 320 10*3/uL 150-[address] [facility] Work Phone: Serum or plasma calcium ronni urement (mass/volume)on 01-05-2022 Calcium [Mass/Vol] 9.9 mg/dL 8.5-10.1 [facility] Work Phone: Serum or plasma creatinine m easurement (mass/volume)on 01-05-2022 Creatinine [Mass/Vol] 0.75 mg/dL 0.55-1.02 [facility] Work Phone: Comment on above: The validity of the calculated GFR & GFRAA in patients over 70 years has not been determined. Clinical correlation is essential. Serum or plasma urea nitroge n measurement (mass/volume)on 01-05-2022 Urea nitrogen [Mass/Vol] 16 mg/dL 7-[address] [facility] Work Phone: Thin prep Papanicolaou smear with manual screeningon 01-05-2022 Thin prep Papanicolaou smear with manual screening 7 5-[address] [facility] Work Phone: Absolute lymphocyte counton 12-19-2021 Lymphocytes Auto (Unsp spec) [#/Vol] 2.71 10*3/uL 0.83-4.[address] [facility] Work Phone: Basophil percentageon 2021 Chloride [Moles/Vol] 104 mmol/L 98-[address] [facility] Work Phone: Glucose [Mass/Vol] 97 mg/dL 74-106 [facility] Work Phone: [phone] Potassium [Moles/Vol] 4.0 mmol/L 3.5-5.1 [address] [facility] Work Phone: [phone] Sodium [Moles/Vol] 140 mmol/L 136-145 [facility] Work Phone: [phone] Basophils/100 WBC (Bld) 0.8 % 0-[address] [facility] Work Phone: [phone] Eosinophils/100 WBC (Bld) 1.1 % 0-[address] [facility] Work Phone: [phone] Neutrophils (Bld) [#/Vol] 2.7 10*3/uL 2.0-7.[address] [facility] Work Phone: Neutrophils/100 WBC (Bld) 44.8 % 47-[address] [facility] Work Phone: [phone] WBC (Bld) [#/Vol] 6.1 10*3/uL 4.4-11.0 [facility] Work Phone: Blood erythrocytes count (nu mber/volume)on 12-19-2021 RBC (Bld) [#/Vol] 4.28 10*6/uL 4.2-5.4 [facility] Work Phone: Blood hemoglobin measurement (mass/volume)on 12-19-2021 Hemoglobin (Bld) [Mass/Vol] 13.6 g/dL 12.0-15.[address] [facility] Work Phone: [phone] Blood lymphocytes/100 leukoc yteson 12-19-2021 Lymphocytes/100 WBC (Bld) 44.3 % 19-[address] [facility] Work Phone: [phone] Blood monocytes/100 leukocyt eson 12-19-2021 Monocytes/100 WBC (Bld) 8.8 % 0-[address] [facility] Work Phone: Blood platelet mean volumeon 12-19-2021 Platelet mean volume (Bld) [Entitic vol] 10.8 fL 6.2-12.[address] [facility] Work Phone: Determination of erythrocyte mean corpuscular volume (MCV)on 12-19-2021 MCV (RBC) [Entitic vol] 93.0 fL 81-[address] [facility] Work Phone: Hematocrit Auto (Bld) [Volum e fraction]on 12-19-2021 Hematocrit (Bld) [Volume fraction] 39.8 % 37-[address] [facility] Work Phone: Laboratory - Chemistry and C hemistry - challengeon 12-19-2021 CO2 [Moles/Vol] 30.0 mmol/L 21.0-32.[address] [facility] Work Phone: Urea nitrogen/Creatinine [Mass ratio] 21.0 mg/mg 10-[address] [facility] Work Phone: Laboratory - Hematology and Cell countson 12-19-2021 Erythrocyte distribution width (RBC) [Entitic vol] 40.3 fL 35.1-43.[address] [facility] Work Phone: Erythrocyte distribution width (RBC) [Ratio] 13.9 % 11.6-14.[address] [facility] Work Phone: Immature granulocytes/100 WBC (Bld) 0.200 % 0.0-0.[address] [facility] Work Phone: Comment on above: IG% - Immature Granu locytes (promyelocytes, myelocytes and metamyelocytes) > 1% indicates that a LEFT SHIFT is Present. MCH (RBC) [Entitic mass] 31.8 pg 27.0-32.[address] [facility] Work Phone: Nucleated RBC/100 WBC (Bld) [Ratio] 0 % 0-[address] [facility] Work Phone: MCHC Auto (RBC) [Mass/Vol]on 12-19-2021 MCHC (RBC) [Mass/Vol] 34.2 g/dL 32-36 [facility] Work Phone: No Panel Informationon 12-19 Estimated Creatinine Clearance Calc 67.33 ml/min [facility] Work Phone: Estimated GFR (MDRD) Amer 111 mL/min >[address] [facility] Work Phone: Comment on above: GFR Calc Estimated GFR (MDRD) Non-Af Amer 92 mL/min >[address] [facility] Work Phone: Comment on above: Non- GFR Calc Troponin I High Sensitivity 11 pg/mL 3.0-54.[address] [facility] Work Phone: Comment on above: Please Note: New Juanita t Units and Gender Specific Reference Ranges. For more information see Policy Stat Procedure [place] High Sensitivity Troponin (TNIH) and attachments. Platelets bldon 12-19-2021 Platelets (Bld) [#/Vol] 272 10*3/uL 150-[address] [facility] Work Phone: Serum or plasma calcium ronni urement (mass/volume)on 12-19-2021 Calcium [Mass/Vol] 9.2 mg/dL 8.5-10.1 [facility] Work Phone: Serum or plasma creatinine m easurement (mass/volume)on 12-19-2021 Creatinine [Mass/Vol] 0.71 mg/dL 0.55-1.02 [facility] Work Phone: Comment on above: The validity of the calculated GFR & GFRAA in patients over 70 years has not been determined. Clinical correlation is essential. Serum or plasma urea nitroge n measurement (mass/volume)on 12-19-2021 Urea nitrogen [Mass/Vol] 15 mg/dL 7-[address] [facility] Work Phone: Thin prep Papanicolaou smear with manual screeningon 12-19-2021 Thin prep Papanicolaou smear with manual screening 6 5-[address] [facility] Work Phone: Absolute lymphocyte counton 11-30-2021 Lymphocytes Auto (Unsp spec) [#/Vol] 2.64 10*3/uL 0.83-4.[address] [facility] Work Phone: Basophil percentageon 2021 Basophils/100 WBC (Bld) 0.9 % 0-[address] [facility] Work Phone: Chloride [Moles/Vol] 105 mmol/L 98-107 [facility] Work Phone: Eosinophils/100 WBC (Bld) 1.6 % 0-[address] [facility] Work Phone: Glucose [Mass/Vol] 110 mg/dL 74-106 [facility] Work Phone: Comment on above: Fasting Glucose resu lt from 100 to 125 mg/dL suggests IMPAIRED HOMEOSTASIS per A.D.A. criteria. Neutrophils (Bld) [#/Vol] 2.3 10*3/uL 2.0-7.[address] [facility] Work Phone: Neutrophils/100 WBC (Bld) 41.3 % 47-[address] [facility] Work Phone: Potassium [Moles/Vol] 3.5 mmol/L 3.5-5.1 [facility] Work Phone: Sodium [Moles/Vol] 140 mmol/L 136-145 [facility] Work Phone: [phone] WBC (Bld) [#/Vol] 5.7 10*3/uL 4.4-11.0 [facility] Work Phone: Blood erythrocytes count (nu mber/volume)on 11-30-2021 RBC (Bld) [#/Vol] 4.18 10*6/uL 4.2-5.4 [facility] Work Phone: Blood hemoglobin measurement (mass/volume)on 11-30-2021 Hemoglobin (Bld) [Mass/Vol] 13.0 g/dL 12.0-15.[address] [facility] Work Phone: Blood lymphocytes/100 leukoc yteson 11-30-2021 Lymphocytes/100 WBC (Bld) 46.6 % 19-[address] [facility] Work Phone: Blood monocytes/100 leukocyt eson 11-30-2021 Monocytes/100 WBC (Bld) 9.4 % 0-[address] [facility] Work Phone: Blood platelet mean volumeon 11-30-2021 Platelet mean volume (Bld) [Entitic vol] 9.9 fL 6.2-12.[address] [facility] Work Phone: Determination of erythrocyte mean corpuscular volume (MCV)on 11-30-2021 MCV (RBC) [Entitic vol] 91.9 fL 81-[address] [facility] Work Phone: Hematocrit Auto (Bld) [Volum e fraction]on 11-30-2021 Hematocrit (Bld) [Volume fraction] 38.4 % 37-[address] [facility] Work Phone: Laboratory - Chemistry and C hemistry - challengeon 11-30-2021 CO2 [Moles/Vol] 28.0 mmol/L 21.0-32.[address] [facility] Work Phone: Urea nitrogen/Creatinine [Mass ratio] 21.1 mg/mg 10-[address] [facility] Work Phone: Laboratory - Hematology and Cell countson 11-30-2021 Erythrocyte distribution width (RBC) [Entitic vol] 40.1 fL 35.1-43.[address] [facility] Work Phone: Erythrocyte distribution width (RBC) [Ratio] 11.8 % 11.6-14.[address] [facility] Work Phone: Immature granulocytes/100 WBC (Bld) 0.200 % 0.0-0.[address] [facility] Work Phone: Comment on above: IG% - Immature Granu locytes (promyelocytes, myelocytes and metamyelocytes) > 1% indicates that a LEFT SHIFT is Present. MCH (RBC) [Entitic mass] 31.1 pg 27.0-32.[address] [facility] Work Phone: Nucleated RBC/100 WBC (Bld) [Ratio] 0 % 0-[address] [facility] Work Phone: MCHC Auto (RBC) [Mass/Vol]on 11-30-2021 MCHC (RBC) [Mass/Vol] 33.9 g/dL 32-36 [facility] Work Phone: No Panel Informationon 11-30 Estimated Creatinine Clearance Calc 82.15 ml/min [facility] Work Phone: Estimated GFR (MDRD) Amer 103 mL/min >[address] [facility] Work Phone: Comment on above: GFR Calc Estimated GFR (MDRD) Non-Af Amer 85 mL/min >[address] [facility] Work Phone: Comment on above: Non- GFR Calc Troponin I High Sensitivity 3 pg/mL 3.0-54.[address] [facility] Work Phone: Comment on above: Please Note: New Juanita t Units and Gender Specific Reference Ranges. For more information see Policy Stat Procedure [place] High Sensitivity Troponin (TNIH) and attachments. Platelets bldon 11-30-2021 Platelets (Bld) [#/Vol] 283 10*3/uL 150-[address] [facility] Work Phone: Serum or plasma calcium ronni urement (mass/volume)on 11-30-2021 Calcium [Mass/Vol] 9.7 mg/dL 8.5-10.1 [facility] Work Phone: Serum or plasma creatinine m easurement (mass/volume)on 11-30-2021 Creatinine [Mass/Vol] 0.76 mg/dL 0.55-1.02 [facility] Work Phone: Comment on above: The validity of the calculated GFR & GFRAA in patients over 70 years has not been determined. Clinical correlation is essential. Serum or plasma urea nitroge n measurement (mass/volume)on 11-30-2021 Urea nitrogen [Mass/Vol] 16 mg/dL 7-[address] [facility] Work Phone: Thin prep Papanicolaou smear with manual screeningon 11-30-2021 Thin prep Papanicolaou smear with manual screening 7 -[address] [facility] Work Phone: Cervical or vagninal specime n microscopic examination by cytology stain (reported ason 09-03-2021 Cytology report Cyto stain Doc (Cvx/Vag) Comment [facility] Work Phone: Comment on above: The Pap smear is a s creening test designed to aid in thedetection of premalignant and malignant conditions of theuterine cervix. It is not a diagnostic procedure andshould not be used as the sole means of detecting cervicalcancer. Both false-positive and false-negative reports dooccur. Detection in cervical specim en of any of human papilloma virus (HPV) 16, 18, 31, 33,on 09-03-2021 HPV 16+18+31+33+35+39+45+5 1+52+56+58+59+66+68 DNA Probe+sig amp Ql (Cvx) Negative Negative [facility] Work Phone: Comment on above: This nucleic acid am plification test detects fourteen high- risk HPV types (16,18,31,33,35,39,45,51,52,56,58,59,66,68)without differentiation.Performed at: - [facility] [id number] Director: Lisandra Adams MD, Phone: [phone] at: =G - [facility] [address] [id number] Director: Lisandra Adams MD, Phone: [phone] Laboratory - Cytologyon Rubber Covering Machine Operator Cyto stain Nom (Cvx/Vag) [ID] Comment [facility] Work Phone: Comment on above: Alyse Mark [employer] hnologist (ASCP) Laboratory - Miscellaneous t estson 09-03-2021 Service comment (Unsp spec) [Interp] Comment [facility] Work Phone: Comment on above: This liquid based Th inPrep(R) pap test was screened withthe use of an image guided system. Service comment (Unsp spec) [Interp] . [facility] Work Phone: No Panel Informationon 09-03 Pathology report final diagnosis Narrative Comment [facility] Work Phone: Comment on above: NEGATIVE FOR INTRAEP ITHELIAL LESION OR MALIGNANCY. No Panel Informationon 08-27 POC SARS CoV-2 Antigen Negative [facility] Work Phone: XR Finger - right AP and Lat eral and obliqueon 2021 IMPRESSION: Tiny accessory bone versus tiny foreign body along the interphalangeal joint. Wire Brusher: LESLIE Transcribe Date/Time: 2021 8:10A Dictated by : MABLE POLANCO MD This examination was interpreted and the report reviewed and electronically signed by: MABLE POLANCO MD on 2021 8:13AM [facility] [place] DIVISION OF RADIOLOGY * * *Final Report* * * DATE OF EXAM: Aug 13 2021 6:08PM [id number] - XR DIGIT 3V FRONTAL/LAT/OBL RT / PROCEDURE REASON: Pain of right thumb * * * * Physician Interpretation * * * * EXAM TITLE: XR DIGIT 3V FRONTAL/LAT/OBL RT EXAM DATE/TIME: 08/13/2021 6:08 PM COMPARISON: None. CLINICAL INDICATION/HISTORY: Thumb pain. No injury. TECHNIQUE: PA, lateral and oblique views of the first digit of the right hand are presented. FINDINGS: Tiny accessory bone versus tiny foreign body along the interphalangeal joint. No other suspicious fracture. The joint spaces are well preserved. The mineralization of the bones is normal. There is no significant soft tissue swelling. DIVISION OF RADIOLOGY Provider, Gia Maureen [facility] - 2021 * * *Final Report* * * DATE OF EXAM: Aug 13 2021 6:08PM [id number] [id number] - XR DIGIT 3V FRONTAL/LAT/OBL RT / PROCEDURE REASON: Pain of right thumb * * * * Physician Interpretation * * * * EXAM TITLE: XR DIGIT 3V FRONTAL/LAT/OBL RT EXAM DATE/TIME: 08/13/2021 6:08 PM COMPARISON: None. CLINICAL INDICATION/HISTORY: Thumb pain. No injury. TECHNIQUE: PA, lateral and oblique views of the first digit of the right hand are presented. FINDINGS: Tiny accessory bone versus tiny foreign body along the interphalangeal joint. No other suspicious fracture. The joint spaces are well preserved. The mineralization of the bones is normal. There is no significant soft tissue swelling. IMPRESSION IMPRESSION: Tiny accessory bone versus tiny foreign body along the interphalangeal joint. Wire Brusher: PSCB Transcribe Date/Time: 2021 8:10A Dictated by : MABLE POLANCO MD This examination was interpreted and the report reviewed and electronically signed by: MABLE POLANCO MD on 2021 8:13AM EST [facility] XR Finger - right AP and Lat eral and obliqueOrdered By: [facility] Provider on 2021 [facility] XR Finger - right AP and Lat eral and obliqueon 08-13-2021 Radiology Study observation (narrative) [facility] SKIN / NAIL BIOPSY [facility] Vital Signs Date Time Vital Sign Value Performing Clinician Facility 04-02-2025 18:11-0400 Body temperature 98 [degF] Dr. Domonique Guzman MD Work Phone: [facility] 04-02-2025 18:11-0400 Diastolic blood pressure 74 mm[Hg] Dr. Domonique Guzman MD Work Phone: [facility] 04-02-2025 18:11-0400 Heart rate 78 /min Dr. Domonique Guzman MD Work Phone: [facility] 04-02-2025 18:11-0400 Respiratory rate 18 /min Dr. Domonique Guzman MD Work Phone: [facility] 04-02-2025 18:11-0400 SaO2% (BldA) [Mass fraction] 99 % Dr. Domonique Guzman MD Work Phone: [facility] 04-02-2025 18:11-0400 Systolic blood pressure 136 mm[Hg] Dr. Domonique Guzman MD Work Phone: [address]04-2025 15:39-0400 Body height 152.[address] Domonique Guzman MD Work Phone: [facility] 04-02-2025 15:39-0400 Body mass index (BMI) [Ratio] 28.1 kg/m2 Dr. Domonique Guzman MD Work Phone: [facility] 04-02-2025 15:39-0400 Body weight 65.[address] Domonique Guzman MD Work Phone: [facility] 12-20-2024 10:46-0400 Body height 152.4 cm Jimmy Quintana MD Work Phone: [facility] 12-20-2024 10:46-0400 Body mass index (BMI) [Ratio] 27.07 kg/m2 Jimmy Quintana MD Work Phone: [facility] 12-20-2024 10:46-0400 Body weight 62.87 kg Jimmy Quintana MD Work Phone: [facility] 12-20-2024 10:46-0400 Diastolic blood pressure 78 mm[Hg] Jimmy Quintana MD Work Phone: [facility] 12-20-2024 10:46-0400 Heart rate 69 /min Jimmy Quintana MD Work Phone: [facility] 12-20-2024 10:46-0400 Respiratory rate 14 /min Jimmy Quintana MD Work Phone: [facility] 12-20-2024 10:46-0400 SaO2% (BldA) [Mass fraction] 98 % Jimmy Quintana MD Work Phone: [facility] 12-20-2024 10:46-0400 Systolic blood pressure 118 mm[Hg] Jimmy Quintana MD Work Phone: [facility] 10-30-2024 08:17-0500 Body height 152.[address] Domonique Guzman MD Work Phone: [facility] 10-30-2024 08:12-0500 Body mass index (BMI) [Ratio] 28.3 kg/m2 Dr. Domonique Guzman MD Work Phone: [facility] 10-30-2024 08:12-0500 Body weight 65.[address] Domonique Guzman MD Work Phone: [facility] 10-30-2024 08:12-0500 Diastolic blood pressure 70 mm[Hg] Dr. Domonique Guzman MD Work Phone: [facility] 10-30-2024 08:12-0500 Systolic blood pressure 122 mm[Hg] Dr. Domonique Guzman MD Work Phone: [facility] 09-20-2024 10:39-0500 Body height 152.4 cm Jimmy Quintana MD Work Phone: [facility] 09-20-2024 10:39-0500 Body mass index (BMI) [Ratio] 28.71 kg/m2 Jimmy Quintana MD Work Phone: [facility] 09-20-2024 10:39-0500 Body weight 66.68 kg Jimmy Quintana MD Work Phone: [facility] 09-20-2024 10:39-0500 Diastolic blood pressure 71 mm[Hg] Jimmy Quintana MD Work Phone: [facility] 09-20-2024 10:39-0500 Heart rate 64 /min Jimmy Quintana MD Work Phone: [facility] 09-20-2024 10:39-0500 Respiratory rate 14 /min Jimmy Quintana MD Work Phone: [facility] 09-20-2024 10:39-0500 SaO2% (BldA) [Mass fraction] 100 % Jimmy Quintana MD Work Phone: [facility] 09-20-2024 10:39-0500 Systolic blood pressure 118 mm[Hg] Jimmy Quintana MD Work Phone: [facility] 05-31-2024 14:32-0400 Body height 149.9 cm Sydnee Taisha ASSOCIATE DIRECTOR FINANCIAL AID.KOSHER DIETARY SERVICE MANAGER Work Phone: [facility] 05-31-2024 14:32-0400 Body mass index (BMI) [Ratio] 29.74 kg/m2 Sydnee Taisha ASSOCIATE DIRECTOR FINANCIAL AID.KOSHER DIETARY SERVICE MANAGER Work Phone: [facility] 05-31-2024 14:32-0400 Body weight 66.8 kg Sydnee Taisha ASSOCIATE DIRECTOR FINANCIAL AID.KOSHER DIETARY SERVICE MANAGER Work Phone: [facility] 05-31-2024 14:32-0400 Diastolic blood pressure 78 mm[Hg] Sydnee Taisha ASSOCIATE DIRECTOR FINANCIAL AID.KOSHER DIETARY SERVICE MANAGER Work Phone: [facility] 05-31-2024 14:32-0400 Heart rate 70 /min Sydnee Taisha ASSOCIATE DIRECTOR FINANCIAL AID.KOSHER DIETARY SERVICE MANAGER Work Phone: [facility] 05-31-2024 14:32-0400 Systolic blood pressure 115 mm[Hg] Sydnee Taisha ASSOCIATE DIRECTOR FINANCIAL AID.KOSHER DIETARY SERVICE MANAGER Work Phone: [facility] 10-11-2023 14:47-0500 Body height 152.4 cm Sydnee Taisha ASSOCIATE DIRECTOR FINANCIAL AID.KOSHER DIETARY SERVICE MANAGER Work Phone: [facility] 10-11-2023 14:47-0500 Body weight 66.54 kg Sydnee Taisha ASSOCIATE DIRECTOR FINANCIAL AID.KOSHER DIETARY SERVICE MANAGER Work Phone: [facility] 10-11-2023 14:47-0500 Diastolic blood pressure 80 mm[Hg] Sydnee Taisha ASSOCIATE DIRECTOR FINANCIAL AID.KOSHER DIETARY SERVICE MANAGER Work Phone: [facility] 10-11-2023 14:47-0500 Heart rate 77 /min Sydnee Taisha ASSOCIATE DIRECTOR FINANCIAL AID.KOSHER DIETARY SERVICE MANAGER Work Phone: [facility] 10-11-2023 14:47-0500 Respiratory rate 16 /min Sydnee Taisha ASSOCIATE DIRECTOR FINANCIAL AID.KOSHER DIETARY SERVICE MANAGER Work Phone: [facility] 10-11-2023 14:47-0500 Systolic blood pressure 124 mm[Hg] Sydnee Taisha ASSOCIATE DIRECTOR FINANCIAL AID.KOSHER DIETARY SERVICE MANAGER Work Phone: [facility] 07-12-2023 10:41-0500 Diastolic blood pressure 76 mm[Hg] Rufina Tomlinson MD Work Phone: [facility] 07-12-2023 10:41-0500 Heart rate 77 /min Rufina Tomlinson MD Work Phone: [facility] 07-12-2023 10:41-0500 Systolic blood pressure 124 mm[Hg] Rufina Tomlinson MD Work Phone: [facility] 05-12-2023 13:25-0400 Body height 148.6 cm Sydnee Taisha ASSOCIATE DIRECTOR FINANCIAL AID.KOSHER DIETARY SERVICE MANAGER Work Phone: [facility] 05-12-2023 13:25-0400 Body weight 63.5 kg Sydnee Taisha ASSOCIATE DIRECTOR FINANCIAL AID.KOSHER DIETARY SERVICE MANAGER Work Phone: [facility] 05-12-2023 13:25-0400 Diastolic blood pressure 64 mm[Hg] Sydnee Taisha ASSOCIATE DIRECTOR FINANCIAL AID.KOSHER DIETARY SERVICE MANAGER Work Phone: [facility] 05-12-2023 13:25-0400 Heart rate 85 /min Sydnee Taisha ASSOCIATE DIRECTOR FINANCIAL AID.KOSHER DIETARY SERVICE MANAGER Work Phone: [facility] 05-12-2023 13:25-0400 SaO2% (BldA) [Mass fraction] 98 % Sydnee Taisha ASSOCIATE DIRECTOR FINANCIAL AID.KOSHER DIETARY SERVICE MANAGER Work Phone: [facility] 05-12-2023 13:25-0400 Systolic blood pressure 114 mm[Hg] Sydnee Taisha ASSOCIATE DIRECTOR FINANCIAL AID.KOSHER DIETARY SERVICE MANAGER Work Phone: [facility] 04-21-2023 14:34-0400 Body weight 64.41 kg Sydnee Taisha ASSOCIATE DIRECTOR FINANCIAL AID.KOSHER DIETARY SERVICE MANAGER Work Phone: [facility] 04-21-2023 14:34-0400 Diastolic blood pressure 60 mm[Hg] Sydnee Taisha ASSOCIATE DIRECTOR FINANCIAL AID.KOSHER DIETARY SERVICE MANAGER Work Phone: [facility] 04-21-2023 14:34-0400 Heart rate 78 /min Sydnee Taisha ASSOCIATE DIRECTOR FINANCIAL AID.KOSHER DIETARY SERVICE MANAGER Work Phone: [facility] 04-21-2023 14:34-0400 SaO2% (BldA) [Mass fraction] 99 % Sydnee Taisha ASSOCIATE DIRECTOR FINANCIAL AID.KOSHER DIETARY SERVICE MANAGER Work Phone: [facility] 04-21-2023 14:34-0400 Systolic blood pressure 100 mm[Hg] Sydnee Taisha ASSOCIATE DIRECTOR FINANCIAL AID.KOSHER DIETARY SERVICE MANAGER Work Phone: [facility] 02-23-2023 08:19-0400 Body height 149.9 cm Samantha Butler MD Work Phone: [facility] 02-23-2023 08:19-0400 Body temperature 98.91 [degF] Samantha Butler MD Work Phone: [facility] 02-23-2023 08:19-0400 Body weight 64.41 kg Samantha Butler MD Work Phone: [facility] 02-23-2023 08:19-0400 Diastolic blood pressure 67 mm[Hg] Samantha Butler MD Work Phone: [facility] 02-23-2023 08:19-0400 Heart rate 70 /min Samantha Butler MD Work Phone: [facility] 02-23-2023 08:19-0400 SaO2% (BldA) [Mass fraction] 100 % Samantha Butler MD Work Phone: [facility] 02-23-2023 08:19-0400 Systolic blood pressure 132 mm[Hg] Samantha Butler MD Work Phone: [facility] 01-11-2023 12:54-0400 Body weight 63.96 kg Maryam Emmanuel ASSOCIATE DIRECTOR FINANCIAL AID.GENERAL MAINTENANCE HELPER Work Phone: [facility] 01-11-2023 12:54-0400 Diastolic blood pressure 70 mm[Hg] Maryam Emmanuel ASSOCIATE DIRECTOR FINANCIAL AID.GENERAL MAINTENANCE HELPER Work Phone: [facility] 01-11-2023 12:54-0400 Heart rate 68 /min Maryam Emmanuel ASSOCIATE DIRECTOR FINANCIAL AID.GENERAL MAINTENANCE HELPER Work Phone: [facility] 01-11-2023 12:54-0400 Respiratory rate 16 /min Maryam Emmanuel ASSOCIATE DIRECTOR FINANCIAL AID.GENERAL MAINTENANCE HELPER Work Phone: [facility] 01-11-2023 12:54-0400 Systolic blood pressure 122 mm[Hg] Maryam Emmanuel ASSOCIATE DIRECTOR FINANCIAL AID.GENERAL MAINTENANCE HELPER Work Phone: [facility] 10-14-2022 12:47-0500 Body height 149.9 cm Jimmy Quintana MD Work Phone: [facility] 10-14-2022 12:47-0500 Body weight 60.78 kg Jimmy Quintana MD Work Phone: [facility] 10-14-2022 12:47-0500 Diastolic blood pressure 82 mm[Hg] Jimmy Quintana MD Work Phone: [facility] 10-14-2022 12:47-0500 Heart rate 59 /min Jimmy Quintana MD Work Phone: [facility] 10-14-2022 12:47-0500 SaO2% (BldA) [Mass fraction] 100 % Jimmy Quintana MD Work Phone: [facility] 10-14-2022 12:47-0500 Systolic blood pressure 133 mm[Hg] Jmimy Quintana MD Work Phone: [facility] 09-08-2022 08:34-0500 Body height 152.[address] Domonique Guzman Work Phone: [facility] 09-08-2022 08:27-0500 Body mass index (BMI) [Ratio] 26.2 kg/m2 Dr. Domonique Guzman Work Phone: [facility] 09-08-2022 08:27-0500 Body weight [address] Domonique Guzman Work Phone: [facility] 09-08-2022 08:27-0500 Diastolic blood pressure 72 mm[Hg] Dr. Domonique Guzman Work Phone: [facility] 09-08-2022 08:27-0500 Systolic blood pressure 114 mm[Hg] Dr. Domonique Guzman Work Phone: [facility] 07-02-2022 10:59-0400 Body temperature 98.91 [degF] Samantha Butler MD Work Phone: [facility] 07-02-2022 10:59-0400 Body weight 60.33 kg Samantha Butler MD Work Phone: [facility] 07-02-2022 10:59-0400 Diastolic blood pressure 70 mm[Hg] Samantha Butler MD Work Phone: [facility] 07-02-2022 10:59-0400 Heart rate 69 /min Samantha Butler MD Work Phone: [facility] 07-02-2022 10:59-0400 Systolic blood pressure 124 mm[Hg] Samantha Butler MD Work Phone: [facility] 04-22-2022 13:02-0400 Body height 149.9 cm Domonique Guzman MD Work Phone: [facility] 04-22-2022 13:02-0400 Body weight 60.33 kg Domonique Guzman MD Work Phone: [facility] 04-22-2022 13:02-0400 Diastolic blood pressure 78 mm[Hg] Domonique Guzman MD Work Phone: [facility] 04-22-2022 13:02-0400 Heart rate 67 /min Domonique Guzman MD Work Phone: [facility] 04-22-2022 13:02-0400 SaO2% (BldA) [Mass fraction] 97 % Domonique Guzman MD Work Phone: [facility] 04-22-2022 13:02-0400 Systolic blood pressure 118 mm[Hg] Domonique Guzman MD Work Phone: [facility] 01-29-2022 10:24-0400 Body height 152.4 cm Samantha Butler MD Work Phone: [facility] 01-29-2022 10:24-0400 Body temperature 99.19 [degF] Samantha Butler MD Work Phone: [facility] 01-29-2022 10:24-0400 Body weight 59.83 kg Samantha Butler MD Work Phone: [facility] 01-29-2022 10:24-0400 Diastolic blood pressure 69 mm[Hg] Samantha Butler MD Work Phone: [facility] 01-29-2022 10:24-0400 Heart rate 67 /min Samantha Butler MD Work Phone: [facility] 01-29-2022 10:24-0400 Systolic blood pressure 120 mm[Hg] Samantha Butler MD Work Phone: [facility] 01-28-2022 10:40-0400 Body height 152.4 cm Jimmy Quintana MD Work Phone: [facility] 01-28-2022 10:40-0400 Body weight 58.15 kg Jimmy Quintana MD Work Phone: [facility] 01-28-2022 10:40-0400 Diastolic blood pressure 75 mm[Hg] Jimmy Quintana MD Work Phone: [facility] 01-28-2022 10:40-0400 Heart rate 75 /min Jimmy Quintana MD Work Phone: [facility] 01-28-2022 10:40-0400 Respiratory rate 16 /min Jimmy Quintana MD Work Phone: [facility] 01-28-2022 10:40-0400 SaO2% (BldA) [Mass fraction] 100 % Jimmy Quintana MD Work Phone: [facility] 01-28-2022 10:40-0400 Systolic blood pressure 112 mm[Hg] Jimmy Quintana MD Work Phone: [facility] 01-14-2022 15:30-0400 Diastolic blood pressure 76 mm[Hg] Ct (I-Stat) Work Phone: [facility] 01-14-2022 15:30-0400 Heart rate 72 /min Ct (I-Stat) Work Phone: [facility] 01-14-2022 15:30-0400 Systolic blood pressure 117 mm[Hg] Ct (I-Stat) Work Phone: [facility] 01-05-2022 14:12-0400 Diastolic blood pressure 83 mm[Hg] [facility] Work Phone: 01-05-2022 14:12-0400 Heart rate 71 /min [facility] Work Phone: 01-05-2022 14:12-0400 Respiratory rate 18 /min [facility] Work Phone: 01-05-2022 14:12-0400 Systolic blood pressure 144 mm[Hg] [facility] Work Phone: 01-05-2022 13:27-0400 SaO2% (BldA) [Mass fraction] 98 % [facility] Work Phone: 01-05-2022 12:26-0400 Body height 152.4 cm [facility] Work Phone: 01-05-2022 12:26-0400 Body mass index (BMI) [Ratio] 25 kg/m2 [facility] Work Phone: 01-05-2022 12:26-0400 Body temperature 98 [degF] [facility] Work Phone: 01-05-2022 12:26-0400 Body weight 58.05 kg [facility] Work Phone: 12-24-2021 13:27-0400 Diastolic blood pressure 94 mm[Hg] Jimmy Quintana MD Work Phone: [facility] 12-24-2021 13:27-0400 Systolic blood pressure 157 mm[Hg] Jimmy Quintana MD Work Phone: [facility] 12-24-2021 13:26-0400 SaO2% (BldA) [Mass fraction] 100 % Jimmy Quintana MD Work Phone: [facility] 12-24-2021 13:24-0400 Body height 152.4 cm Jimmy Quintana MD Work Phone: [facility] 12-24-2021 13:24-0400 Body weight 56.52 kg Jimmy Quintana MD Work Phone: [facility] 12-19-2021 14:21-0400 Diastolic blood pressure 86 mm[Hg] Dr. Domonique Guzman Work Phone: [facility] Work Phone: 12-19-2021 14:21-0400 Heart rate 88 /min Dr. Domonique Guzman Work Phone: [facility] Work Phone: 12-19-2021 14:21-0400 Respiratory rate 18 /min Dr. Domonique Guzman Work Phone: [facility] Work Phone: 12-19-2021 14:21-0400 SaO2% (BldA) [Mass fraction] 98 % Dr. Domonique Guzman Work Phone: [facility] Work Phone: 12-19-2021 14:21-0400 Systolic blood pressure 125 mm[Hg] Dr. Domonique Guzman Work Phone: [facility] Work Phone: 12-19-2021 11:42-0400 Body height 152.[address] Domonique Guzman Work Phone: [facility] Work Phone: 12-19-2021 11:42-0400 Body mass index (BMI) [Ratio] 27.7 kg/m2 Dr. Domonique Guzman Work Phone: [facility] Work Phone: 12-19-2021 11:42-0400 Body temperature 98.3 [degF] Dr. Domonique Guzman Work Phone: [facility] Work Phone: 12-19-2021 11:42-0400 Body weight 64.[address] Domonique Guzman Work Phone: [facility] [facility] Work Phone: 12-12-2021 09:33-0400 Body weight 58.97 kg Maryam Emmanuel ASSOCIATE DIRECTOR FINANCIAL AID.GENERAL MAINTENANCE HELPER Work Phone: [facility] 12-12-2021 09:33-0400 Diastolic blood pressure 76 mm[Hg] Maryam Emmanuel ASSOCIATE DIRECTOR FINANCIAL AID.GENERAL MAINTENANCE HELPER Work Phone: [facility] 12-12-2021 09:33-0400 Heart rate 80 /min Maryam Emmanuel ASSOCIATE DIRECTOR FINANCIAL AID.GENERAL MAINTENANCE HELPER Work Phone: [facility] 12-12-2021 09:33-0400 Respiratory rate 16 /min Maryam Emmanuel ASSOCIATE DIRECTOR FINANCIAL AID.GENERAL MAINTENANCE HELPER Work Phone: [facility] 12-12-2021 09:33-0400 Systolic blood pressure 122 mm[Hg] Maryam Emmanuel ASSOCIATE DIRECTOR FINANCIAL AID.GENERAL MAINTENANCE HELPER Work Phone: [facility] 11-30-2021 12:12-0400 Diastolic blood pressure 91 mm[Hg] Dr. Domonique Guzman Work Phone: [facility] Work Phone: 11-30-2021 12:12-0400 Heart rate 70 /min Dr. Domonique Guzman Work Phone: [facility] Work Phone: 11-30-2021 12:12-0400 Respiratory rate 13 /min Dr. Domonique Guzman Work Phone: [facility] Work Phone: 11-30-2021 12:12-0400 SaO2% (BldA) [Mass fraction] 100 % Dr. Domonique Guzman Work Phone: [facility] Work Phone: 11-30-2021 12:12-0400 Systolic blood pressure 140 mm[Hg] Dr. Domonique Guzman Work Phone: [facility] Work Phone: 11-30-2021 11:09-0400 Body height 172.[address] Domonique Guzman Work Phone: [facility] Work Phone: 11-30-2021 11:09-0400 Body mass index (BMI) [Ratio] 19.9 kg/m2 Dr. Domonique Guzman Work Phone: [facility] Work Phone: 11-30-2021 11:09-0400 Body temperature 97.6 [degF] Dr. Domonique Guzman Work Phone: [facility] Work Phone: 11-30-2021 11:09-0400 Body weight 59.[address] Domonique Guzman Work Phone: [facility] Work Phone: 09-03-2021 09:12-0500 Body mass index (BMI) [Ratio] 25.2 kg/m2 Dr. Domonique Guzman Work Phone: [facility] Work Phone: 09-03-2021 09:12-0500 Body weight 58.[address] Domonique Guzman Work Phone: [facility] Work Phone: 09-03-2021 09:12-0500 Diastolic blood pressure 70 mm[Hg] Dr. Domonique Guzman Work Phone: [facility] Work Phone: 09-03-2021 09:12-0500 Systolic blood pressure 120 mm[Hg] Dr. Domonique Guzman Work Phone: [facility] Work Phone: 08-27-2021 09:55-0500 Body mass index (BMI) [Ratio] 25.6 kg/m2 Dr. Domonique Guzman Work Phone: [facility] Work Phone: 08-27-2021 09:55-0500 Body temperature 98 [degF] Dr. Domonique Guzman Work Phone: [facility] Work Phone: 08-27-2021 09:55-0500 Body weight 59.[address] Domonique Guzman Work Phone: [facility] Work Phone: 08-27-2021 09:55-0500 Diastolic blood pressure 72 mm[Hg] Dr. Domonique Guzman Work Phone: [facility] Work Phone: 08-27-2021 09:55-0500 Heart rate 66 /min Dr. Domonique Guzman Work Phone: [facility] Work Phone: 08-27-2021 09:55-0500 Respiratory rate 16 /min Dr. Domonique Guzman Work Phone: [facility] Work Phone: 08-27-2021 09:55-0500 SaO2% (BldA) [Mass fraction] 98 % Dr. Domonique Guzman Work Phone: [facility] Work Phone: 08-27-2021 09:55-0500 Systolic blood pressure 122 mm[Hg] Dr. Domonique Guzman Work Phone: [facility] Work Phone: Encounters Encounter Date Encounter Type Care Provider Facility Start: 04-02-2025 End: 04-02-2025 Emergency department patient visit Dr. Domonique Guzman MD Work Phone: -Emergency Department Work Phone: Start: 02-21-2025 End: 02-21-2025 Refill Jimmy Quintana MD Work Phone: Cardiology Comment on above: Refill Request Start: 01-03-2025 End: 01-03-2025 Patient encounter procedure Carlton Pabon MD Work Phone: Dermatology Comment on above: Allergic contact jenna matitis due to metals (Primary Dx); Hx of nonmelanoma skin cancer; Skin exam, screening for cancer; Multiple benign nevi; Siegel angioma; Lentigines; Seborrheic keratosis; Dermatofibroma; Photoaging of skin Start: 01-03-2025 End: 01-03-2025 ambulatory DOMONIQUE STAPLETONKENDELL Facility:[facility] Start: 12-20-2024 End: 12-20-2024 Patient encounter procedure Jimmy Quintana MD Work Phone: Cardiology Comment on above: History of gastritis ; Family history of coronary artery disease; Pure hypercholesterolemia Start: 12-20-2024 End: 12-20-2024 [facility] Start: 12-19-2024 End: 12-19-2024 ambulatory [facility] Start: 11-30-2024 End: 12-07-2024 ambulatory Jimmy Quintana MD Work Phone: Cardiology Comment on above: Blood work Start: 11-24-2024 End: 01-24-2025 Follow-up encounter Sydnee Sumner APRN.CNP Work Phone: [facility] Start: 11-20-2024 End: 11-20-2024 ambulatory SYDNEE SUMNER Facility:[facility] Start: 11-20-2024 End: 11-20-2024 Subsequent hospital visit by physician Screen Mammo [facility] Mammogram Comment on above: Encounter for screen ing mammogram for breast cancer [Z12.31] Start: 11-02-2024 End: 11-10-2024 Get Medical Advice Domonique Guzman MD Work Phone: [facility] [place] Comment on above: Mammogram order Start: 10-30-2024 End: 10-30-[address] Domonique Guzman MD Work Phone: [facility] Work Phone: Start: 10-30-2024 End: 10-30-2024 Patient encounter procedure Mahsa Fischer BUILDING TRADES INSTRUCTOR-C -Laboratory, Specimen Work Phone: Start: 10-30-2024 End: 10-30-2024 Patient encounter procedure Mahsa Fischer BUILDING TRADES INSTRUCTOR-C -[facility] Work Phone: Start: 10-30-2024 End: 10-30-2024 Patient encounter status Mahsa Fischer BUILDING TRADES INSTRUCTOR-C [facility] Start: 10-30-2024 End: 10-30-2024 ambulatory Mahsa Fischer BUILDING TRADES INSTRUCTOR Facility:[facility] Start: 10-30-2024 End: 10-30-2024 ambulatory Mahsa Fischer ROSELIA Facility:[facility] Start: 10-09-2024 End: 10-09-2024 ambulatory JIMMY QUINTANA Facility:[facility] Start: 10-03-2024 End: 10-04-2024 Refill Reynaldo Whatley APRN.CNP Work Phone: Cardiology Comment on above: Refill Request Start: 10-02-2024 ambulatory DOMONIQUE GUZMAN Facilit y:[facility] Start: 10-02-2024 End: 10-02-2024 Subsequent hospital visit by physician Stress Lab 1 [facility] Work Phone: Cardiology Lab Start: 10-02-2024 ambulatory UNKNOWN PROVIDER Facili ty:[facility] Start: 10-02-2024 End: 10-02-2024 Subsequent hospital visit by physician [facility] 2 Work Phone: Molecular Imaging Start: 09-29-2024 End: 09-29-2024 Telephone encounter Liberty Hubbard RN Cardiology Lab Comment on above: Reminder Call Start: 09-22-2024 End: 09-22-2024 Emergency department patient visit TEJAL ISABEL Facility:[facility] Start: 09-22-2024 End: 09-26-2024 Telephone encounter Jimmy Quintana MD Work Phone: Cardiology Start: 09-21-2024 End: 09-25-2024 Refill Jimmy Quintana MD Work Phone: Cardiology Comment on above: Refill Request Start: 09-20-2024 End: 09-20-2024 Patient encounter procedure Jimmy Quintana MD Work Phone: Cardiology Comment on above: Bruit (Primary Dx); Family history of coronary artery disease; Pure hypercholesterolemia; Precordial pain; Palpitations Start: 09-20-2024 End: 09-20-2024 ambulatory JIMMY QUINTANA Facility:[facility] Start: 09-15-2024 End: 09-15-2024 ambulatory NOHEMY HILL Facility:[facility] Start: 09-15-2024 End: 09-15-2024 Patient encounter procedure Nohemy Hill DO Work Phone: Dermatology [facility] Comment on above: Dermatofibroma (Prim skyler Dx) Start: 09-14-2024 End: 09-15-2024 Refill Sydnee Sumner ASSOCIATE DIRECTOR FINANCIAL AID.KOSHER DIETARY SERVICE MANAGER Work Phone: [facility] [place] Comment on above: Refill Request Start: 09-07-2024 End: 09-08-2024 Refill Jimmy Quintana MD Work Phone: Cardiology Comment on above: Refill Request Start: 09-05-2024 End: 09-05-2024 Telephone encounter Jimmy Quintana MD Work Phone: Cardiology Comment on above: Orders Start: 08-24-2024 End: 08-24-2024 Telephone encounter Jimmy Quintana MD Work Phone: Cardiology Comment on above: Appointment Reschedu led Start: 06-06-2024 End: 06-06-2024 Patient encounter procedure Carlton Pabon MD Work Phone: Dermatology Comment on above: Multiple benign nevi (Primary Dx); Siegel angioma; Skin exam, screening for cancer; Hx of nonmelanoma skin cancer; Lentigines; Seborrheic keratosis; Contact dermatitis, unspecified contact dermatitis type, unspecified trigger; Acrochordon Start: 06-06-2024 End: 06-06-2024 ambulatory [facility] Facility:[facility] Start: 06-01-2024 End: 06-01-2024 ambulatory [facility] Facility:[facility] Start: 05-31-2024 End: 05-31-2024 Patient encounter procedure Sydnee Sumner ASSOCIATE DIRECTOR FINANCIAL AID.KOSHER DIETARY SERVICE MANAGER Work Phone: [facility] Medicine [place] Comment on above: Wellness examination (Primary Dx); Screening for depression; Encounter for screening examination for other mental health and behavioral disorders; Encounter for therapeutic drug monitoring; Vitamin D deficiency; Memory impairment; Screening for lipid disorders Start: 05-31-2024 End: 05-31-2024 Patient encounter status Sydnee Sumner APRN.KOSHER DIETARY SERVICE MANAGER Work Phone: [facility] Work Phone: Start: 05-31-2024 End: 05-31-2024 ambulatory DOMONIQUE D TALAMPAS Facility:[facility] Start: 05-31-2024 Encounter for genera l adult medical examination without abnormal findings SYDNEE SUMNER [facility] Start: 03-01-2024 Orders Only Jimmy sorensen MD Work Phone: Cardiology Comment on above: Palpitations (Primar y Dx); Family history of ischemic heart disease; Pure hypercholesterolemia; Raynaud's phenomenon without gangrene Start: 11-22-2023 End: 11-22-2023 Patient encounter procedure Suyapa Peraza PA-C Work Phone: Dermatology Comment on above: Seborrheic keratoses (Primary Dx); Multiple nevi; Lentigines; Siegel angioma; Skin cancer screening; Family history of melanoma; Hx of nonmelanoma skin cancer Start: 11-11-2023 Documentation procedure Mammog esha Coordinator [facility] Start: 11-11-2023 Letter encounter Mammography Coordinator [facility] Department Start: 11-10-2023 End: 11-10-2023 Subsequent hospital visit by physician Screen Mammo [facility] Mammogram Comment on above: Encounter for screen ing mammogram for breast cancer [Z12.31] Start: 10-11-2023 End: 10-11-2023 Subsequent hospital visit by physician Xr [facility] [place] Work Phone: Radiology Comment on above: Acute left-sided tho racic back pain [M54.6] Start: 10-11-2023 End: 10-11-2023 Patient encounter procedure Sydnee Sumner APRN.KOSHER DIETARY SERVICE MANAGER Work Phone: Internal Medicine [place] Comment on above: Acute left-sided tho racic back pain (Primary Dx) Start: 08-04-2023 ambulatory Domonique sorensen MD Work Phone: [facility] [place] Start: 07-12-2023 End: 07-12-2023 Patient encounter procedure Rufina Tomlinson MD Work Phone: Dermatology Comment on above: Basal cell carcinoma of face Start: 05-24-2023 Refill Sydnee Taisha ASSOCIATE DIRECTOR FINANCIAL AID.KOSHER DIETARY SERVICE MANAGER Work Phone: [facility] [place] Comment on above: Refill Request Start: 05-14-2023 Telephone encounter Suyapa BATES-C Work Phone: Dermatology Comment on above: Question Start: 05-12-2023 End: 05-12-2023 Patient encounter procedure Sydnee Taisha ASSOCIATE DIRECTOR FINANCIAL AID.KOSHER DIETARY SERVICE MANAGER Work Phone: [facility] [place] Comment on above: Wellness examination (Primary Dx); Gastroesophageal reflux disease without esophagitis; Raynaud's phenomenon without gangrene; Pain of right heel; Encounter for immunization Start: 05-12-2023 End: 05-12-2023 Patient encounter status Sydnee Taisha ASSOCIATE DIRECTOR FINANCIAL AID.KOSHER DIETARY SERVICE MANAGER Work Phone: [facility] Work Phone: Start: 04-21-2023 End: 04-21-2023 Patient encounter procedure Sydnee Taisha ASSOCIATE DIRECTOR FINANCIAL AID.KOSHER DIETARY SERVICE MANAGER Work Phone: [facility] [place] Comment on above: Abdominal pain, RUQ (right upper quadrant) (Primary Dx); Gastroesophageal reflux disease without esophagitis; History of gastritis Start: 04-19-2023 Telephone encounter Mamie krishna PA-C Work Phone: Dermatology Comment on above: Results Start: 04-18-2023 ambulatory Domonique sorensen MD Work Phone: Internal Medicine [place] Comment on above: Blood work Start: 04-16-2023 End: 04-16-2023 Patient encounter procedure Suyapa Peraza PA-C Work Phone: Dermatology Comment on above: Neoplasm of unspecif ied behavior of bone, soft tissue, and skin (Primary Dx); Dermatofibroma; Seborrheic keratoses Start: 04-04-2023 Refill Jimmy sorensen MD Work Phone: Cardiology Comment on above: Refill Request Start: 02-23-2023 End: 02-23-2023 Patient encounter procedure Samantha Butler MD Work Phone: Rheumatology Comment on above: Positive (antinu clear antibody) (Primary Dx); Trigger thumb of right hand; Raynaud's phenomenon without gangrene; Hypermobile joints Start: 01-11-2023 End: 01-11-2023 Office outpatient visit 15 minutes Maryam Emmanuel APRNDaiGENERAL MAINTENANCE HELPER Work Phone: [facility] [place] Comment on above: Acute pain of right shoulder (Primary Dx) Start: 10-14-2022 End: 10-14-2022 Patient encounter procedure Jimmy Quintana MD Work Phone: Cardiology Comment on above: Palpitations (Primar y Dx); Coronary artery disease involving [place] coronary artery of [place] heart without angina pectoris Start: 09-08-2022 End: 09-08-[address] Domonique Guzman Work Phone: [facility] Work Phone: Start: 09-08-2022 End: 09-08-[address] Domonique Guzman Work Phone: [facility]-Laboratory, Specimen Start: 09-08-2022 End: 09-08-[address] Domonique Guzman Work Phone: [facility] Start: 07-02-2022 End: 07-02-2022 Patient encounter procedure Samantha Butler MD Work Phone: Rheumatology Comment on above: Positive (antinu clear antibody) (Primary Dx); Trigger thumb of right hand; Raynaud's phenomenon without gangrene; Hypermobile joints Start: 07-01-2022 Documentation procedure Mammog esha Coordinator [facility] Start: 07-01-2022 Letter encounter Mammography Coordinator [facility] Department Start: 06-14-2022 Get Medical Advice Domonique griffiths MD Work Phone: [facility] [place] Comment on above: Requesting order for a mammogram Start: 04-22-2022 End: 04-22-2022 Patient encounter procedure Domonique Guzman MD Work Phone: [facility] [place] Comment on above: Routine medical exam (Primary Dx); Pure hypercholesterolemia; Costochondritis; Localized primary osteoarthritis of carpometacarpal (CMC) joint of right wrist; Encounter for long-term current use of medication; Need for vaccination Start: 04-22-2022 End: 04-22-2022 Patient encounter status Domonique Guzman MD Work Phone: Internal Medicine [place] Start: 04-15-2022 MC Get Medical Advice Domonique griffiths MD Work Phone: [facility] [place] Comment on above: Request for choleste rol/liver function order Start: 02-04-2022 Telephone encounter Alexandra Petersen PA-C Work Phone: Cardiology Comment on above: Medication Problem Start: 01-29-2022 End: 01-29-2022 Subsequent hospital visit by physician [facility] Radiology Comment on above: Pain in joint, multi ple sites [M25.50] Start: 01-29-2022 End: 01-29-2022 Patient encounter procedure Samantha Butler MD Work Phone: Rheumatology Comment on above: Raynaud's phenomenon without gangrene (Primary Dx); Fibromyalgia; Positive (antinuclear antibody); Vitamin D deficiency; Pain in joint, multiple sites; Pain in left hip; Hypermobile joints; Primary osteoarthritis of right hand Start: 01-28-2022 End: 01-28-2022 Patient encounter procedure Jimmy Quintana MD Work Phone: Cardiology Comment on above: Bruit (Primary Dx); Mixed hyperlipidemia Start: 01-14-2022 End: 01-14-2022 Subsequent hospital visit by physician Dolores Jenkins (I-Stat) Work Phone: Radiology Comment on above: ACS (acute coronary syndrome) (HCC) [I24.9] Start: 01-06-2022 ambulatory Jimmy sorensen MD Work Phone: Cardiology Start: 01-05-2022 End: 01-05-2022 Emergency department patient visit [facility]-Emergency Department Start: 01-02-2022 Telephone encounter Jimmy Quintana MD Work Phone: [facility] CARDIOLOG[facility] Comment on above: Orders Start: 12-31-2021 Telephone encounter Domonique carmona MD Work Phone: Internal Medicine [place] Comment on above: COVID positive (Home test) Start: 12-26-2021 Telephone encounter Jimmy Quintana MD Work Phone: Cardiology Comment on above: Patient Question (ad red) Start: 12-25-2021 End: 12-25-2021 Nursing evaluation of patient and report Nurse Card Admin [facility] Work Phone: Cardiology Comment on above: Palpitations (Primar y Dx) Start: 12-24-2021 Telephone encounter Domonique carmona MD Work Phone: [facility] [place] Comment on above: Results Holter Monitor Appli cation Start: 12-24-2021 End: 12-24-2021 Patient encounter procedure Jimmy Quintana MD Work Phone: Cardiology Comment on above: Palpitations (Primar y Dx); Atypical chest pain; Family history of coronary artery disease; ACS (acute coronary syndrome) (HCC) Start: 12-19-2021 End: 12-19-[address] Domonique Guzman Work Phone: [facility]-Cardiovascu lar Services Start: 12-19-2021 End: 12-19-2021 Emergency department patient visit Dr. Domonique Guzman Work Phone: [facility]-Emergency Department Start: 12-12-2021 End: 12-12-2021 Patient encounter procedure Maryam Emmanuel APRN.CNS Work Phone: Internal Medicine [place] Comment on above: Atypical chest pain (Primary Dx); Family history of coronary artery disease; History of gastritis; Gastric polyp; Fibromyalgia; Pain of left hip joint; Chronic pain of both knees; Bilateral hand pain; Pure hypercholesterolemia Start: 11-30-2021 End: 11-30-2021 Emergency department patient visit Dr. Domonique Guzman Work Phone: [facility]-Emergency Department Start: 11-30-2021 End: 11-30-2021 Patient encounter procedure Nessa BolañosJordanLong KOSHER DIETARY SERVICE MANAGER Work Phone: [place] [facility] Comment on above: Chest pain, unspecif ied type (Primary Dx) Start: 09-03-2021 End: 09-03-[address] Domonique Guzman Work Phone: [facility]-Laboratory, Specimen Start: 09-03-2021 End: 09-03-[address] Domonique Guzman Work Phone: [facility] Start: 08-27-2021 End: 08-27-[address] Domonique Guzman Work Phone: [facility] Start: 08-13-2021 End: 08-13-2021 Subsequent hospital visit by physician Xr [facility] Work Phone: Radiology Comment on above: Pain of right thumb [M79.644] Procedures Date Procedure Procedure Detail Performing Clinician Start: 04-02-2025 CT cervical spine wi thout contrast Dr. Domonique Guzman MD Work Phone: Start: 04-02-2025 CT of head without contrast Dr. Domonique Guzman MD Work Phone: Start: 12-19-2024 Lipid 1996 panel - S fredis or Plasma Jimmy Quintana MD Work Phone: Start: 10-30-2024 Gram stain microscopy D janina Guzman MD Work Phone: Start: 10-30-[address] Domonique Guzman MD Work Phone: Start: 10-02-2024 Myocardial spect mul tiple studies Jimmy Quintana MD Work Phone: Start: 06-01-2024 Lipid 1996 panel - S fredis or Plasma Carlton Pabon MD Work Phone: Start: 05-31-2024 Adult depression scr eening assessment Sydnee Taisha ASSOCIATE DIRECTOR FINANCIAL AID.KOSHER DIETARY SERVICE MANAGER Work Phone: Start: 10-11-2023 Radex spine thoracic 2 views Sydnee Taisha ASSOCIATE DIRECTOR FINANCIAL AID.KOSHER DIETARY SERVICE MANAGER Work Phone: Start: 04-22-2023 Lipid 1995 panel - S fredis or Plasma Sydnee Taisha ASSOCIATE DIRECTOR FINANCIAL AID.KOSHER DIETARY SERVICE MANAGER Work Phone: Start: 04-16-2023 SKIN / NAIL BIOPSY Clar kris Peraza PA-C Work Phone: Start: 06-30-2022 Mammography Samantha portillo MD Work Phone: Start: 01-29-2022 Radex elbow 2 views Jose Butler MD Work Phone: Start: 01-27-2022 Adult depression scr eening assessment Jimmy Quintana MD Work Phone: Start: 01-14-2022 Cta hrt cornry art/b ypass grfts contrst 3d post Jimmy Quintana MD Work Phone: Start: 12-19-2021 Plain chest X-ray Dr. Maday Guzman Work Phone: Start: 12-12-2021 Adult depression scr eening assessment Maryam Emmanuel ASSOCIATE DIRECTOR FINANCIAL AID.GENERAL MAINTENANCE HELPER Work Phone: Start: 11-30-2021 Plain chest X-ray Dr. Maday Guzman Work Phone: Start: 08-13-2021 Radex fingr minimum 2 views Chelsy M Celestina ASSOCIATE DIRECTOR FINANCIAL AID.KOSHER DIETARY SERVICE MANAGER Work Phone: Start: 06-12-2021 Mammography Nessa Eldridge ASSOCIATE DIRECTOR FINANCIAL AID.KOSHER DIETARY SERVICE MANAGER Work Phone: Start: 03-18-2021 Colonoscopy Nessa Eldridge ASSOCIATE DIRECTOR FINANCIAL AID.KOSHER DIETARY SERVICE MANAGER Work Phone: Start: 02-22-2021 Adult depression scr eening assessment Nessa Nivia ASSOCIATE DIRECTOR FINANCIAL AID.KOSHER DIETARY SERVICE MANAGER Work Phone: Cytopathology proced ure, preparation of smear, genital source Dr. Domonique Guzman Work Phone: Investigation of transfusion reaction Dr. Domonique Guzman Work Phone: Urine culture Dr. Domonique fowler Work Phone: Plan of Treatment Date Care Activity Detail Author Start: 03-18-2031 Colonoscopy COLONOSCOPY [facility] Start: 03-18-2031 COLORECTAL CANCER SCREENING COLORECTAL CANCER SCREENING [facility] Start: 03-18-2031 Screening for malignant neoplasm of colon [facility] Start: 12-19-2029 Lipid panel Lipid Screening [facility] Start: 06-01-2029 Lipid panel Lipid Screening [facility] Start: 04-22-2028 Lipid 1996 panel - Serum or Plasma Lipid Screening [facility] Start: 04-22-2028 Lipid panel Lipid Screening [facility] Start: 12-20-2027 Diabetes Screening Diabetes Screening [facility] Start: 10-12-2027 LIPID SCREEN LIPID SCREEN [facility] Start: 09-22-2027 Diabetes Screening Diabetes Screening [facility] Start: 06-01-2027 Diabetes Screening Diabetes Screening [facility] Start: 05-13-2027 LIPID SCREEN LIPID SCREEN [facility] Start: 08-21-2026 LIPID SCREEN LIPID SCREEN [facility] Start: 02-19-2026 DIABETES SCREEN DIABETES SCREEN [facility] Start: 02-19-2026 Diabetes Screening Diabetes Screening [facility] [facility] Start: 11-20-2025 Screening for malignant neoplasm of breast Mammogram Screening [facility] Start: 10-12-2025 DIABETES SCREEN DIABETES SCREEN [facility] Start: 06-27-2025 End: 06-27-2025 Patient encounter procedure 06/27/2025 10:30 AM EDT Office Visit Cardiology [address] [place] [address] Jimmy Quintana MD [address] [place] [address] Family history of coronary artery disease Cardiology Comment on above: Family history of coronary artery disekendell krishna Start: 06-26-2025 End: 06-26-2025 Patient encounter procedure 06/26/2025 9:00 AM EDT Office Visit Cardiology [address] [id number] Reynaldo Whatley, ASSOCIATE DIRECTOR FINANCIAL AID.[employer]ICE MA[employer]GER [address] [facility] [address] [place] [address] DX: Family history of coronary artery disease Cardiology Comment on above: DX: Family history of coronary artery di sease Start: 06-15-2025 End: 06-15-2025 Patient encounter procedure 06/15/2025 8:00 AM EDT Office Visit Internal Medicine [place] [address] [place], [place] [id number] Domonique Guzman MD [address] [place], [place] [address] physical Internal Medicine [place] Comment on above: physical Start: 05-31-2025 Anxiety Screening Anxiety Screening [facility] Start: 05-31-2025 Depression Screening Depression Screening [facility] Start: 05-13-2025 DIABETES SCREEN DIABETES SCREEN [facility] Start: 04-30-2025 Influenza vaccination Influenza Vaccine (Season Ended) [facility] Start: 04-02-[address] [facility] Start: 01-03-2025 End: 01-03-2025 Patient encounter procedure 01/03/2025 3:40 PM EDT Office Visit Dermatology [address] [phone] Carlton Pabon MD [address] [place] [id number] [facility] D[facility]atology Comment on above: [facility] Start: 12-20-2024 End: 12-20-2024 Patient encounter procedure 12/20/2024 11:00 AM EDT Office Visit Cardiology [address] [id number] Jimmy Quintana MD [address] [place] [address] Encounter for screening for cardiovascular disorders Cardiology Comment on above: Encounter for screening for cardiovascul ar disorders Start: 12-08-2024 End: 03-09-2025 Comprehensive metabolic 2000 panel - Serum or Plasma COMPREHENSIVE METABOLIC PANEL Lab Routine Mixed hyperlipidemia Expected: 12/08/2024, Expires: 03/09/2025 [facility] Work Phone: Comment on above: Expected: 12/08/2024, Expires: Start: 12-07-2024 End: 03-08-2025 Lipid 1996 panel - Serum or Plasma LIPID PANEL, FASTING Lab Routine Mixed hyperlipidemia Expected: 12/07/2024, Expires: 03/08/2025 [facility] Comment on above: Expected: 12/07/2024, Expires: Start: 11-20-2024 End: 11-20-2024 Patient encounter procedure 11/20/2024 2:30 PM EDT Appointment Mammogram [address] [place] [address] Mammogram Start: 11-09-2024 Screening for malignant neoplasm of breast Mammogram Screening [facility] Start: 10-09-2024 End: 10-09-2024 Patient encounter procedure 10/09/2024 12:30 PM EST Office Visit Vascular Surgery [address] [address] Bruit [R09.89] Vascular Surgery Comment on above: Bruit [R09.89] Start: 10-02-2024 Subsequent hospital visit by physician 10/02/2024 9:00 AM EST Hospital Encounter Cardiology Lab [address] [place] [address] Cardiology Lab Start: 10-02-2024 End: 10-02-2024 Patient encounter procedure Molecular Imaging Comment on above: stress test Start: 09-27-2024 End: 10-21-2025 NM Heart Perfusion W multiple states of exercise NM CARDIAC PERF STRESS/EXERCISE Radiology Routine Expected: 09/27/2024, Expires: 10/21/2025 [facility] Comment on above: Expected: 09/27/2024, Expires: Start: 09-27-2024 End: 09-20-2025 US Carotid arteries - bilateral US CAROTID ARTERIES [facility] Vascular Lab Routine Bruit Expected: 09/27/2024, Expires: 09/20/2025 [facility] Work Phone: Comment on above: Expected: 09/27/2024, Expires: Start: 09-20-2024 End: 09-20-2024 Patient encounter procedure 09/20/2024 11:00 AM EST Office Visit Cardiology [address] [place], [place] [phone] Jimmy Quintana MD [address] [place], [place] [phone] DX: Palpitations; Family history of ischemic heart disease; Pure hypercholesterolemia; Raynaud's phenomenon without gangrene Cardiology Comment on above: DX: Palpitations; Family history of isch emic heart disease; Pure hypercholesterolemia; Raynaud's phenomenon without gangrene Start: 09-20-2024 End: 09-20-2024 ambulatory 09/20/2024 10:00 AM EST Results Only Cardiology [address] [place], [place] [phone] DX: Palpitations; Family history of ischemic heart disease; Pure hypercholesterolemia; Raynaud's phenomenon without gangrene Cardiology Comment on above: DX: Palpitations; Family history of isch emic heart disease; Pure hypercholesterolemia; Raynaud's phenomenon without gangrene Start: 09-04-2024 End: 09-04-2024 Patient encounter procedure 09/04/2024 12:00 PM EST Office Visit Cardiology [address] [place], [place] [phone] [place] [address] [place] [address] Clinician, Interventional [address] [place] [id number] dx: Palpitations; Family history of ischemic heart disease; Pure hypercholesterolemia; Raynaud's phenomenon without gangrene Cardiology Comment on above: dx: Palpitations; Family history of isch emic heart disease; Pure hypercholesterolemia; Raynaud's phenomenon without gangrene Start: 09-04-2024 End: 09-04-2024 ambulatory 09/04/2024 11:15 AM EST Results Only Cardiology [address] [place] [address] dx: Palpitations; Family history of ischemic heart disease; Pure hypercholesterolemia; Raynaud's phenomenon without gangrene Cardiology Comment on above: dx: Palpitations; Family history of isch emic heart disease; Pure hypercholesterolemia; Raynaud's phenomenon without gangrene Start: 08-21-2024 DIABETES SCREEN DIABETES SCREEN [facility] Start: 06-06-2024 End: 06-06-2024 Patient encounter procedure 06/06/2024 2:40 PM EDT Office Visit Dermatology [address] [address] Carlton Pabon MD [address] [place] [address] skin check Dermatology Comment on above: skin check Start: 06-01-2024 End: 08-31-2024 25-hydroxyvitamin D3 [Mass/volume] in Serum or Plasma VITAMIN D 25 HYDROXY Lab Routine Vitamin D deficiency Expected: 06/01/2024, Expires: 08/31/2024 [facility] Comment on above: Expected: 06/01/2024, Expires: Start: 06-01-2024 End: 08-31-2024 CBC W Auto Differential panel - Blood COMPLETE BLOOD COUNT AND DIFFERENTIAL Lab Routine Encounter for therapeutic drug monitoring Expected: 06/01/2024, Expires: 08/31/2024 [facility] Work Phone: Comment on above: Expected: 06/01/2024, Expires: Start: 06-01-2024 End: 08-31-2024 Cobalamin (Vitamin B12) [Mass/volume] in Serum or Plasma VITAMIN B12 Lab Routine Memory impairment Expected: 06/01/2024, Expires: 08/31/2024 [facility] Comment on above: Expected: 06/01/2024, Expires: Start: 06-01-2024 End: 08-31-2024 Comprehensive metabolic 2000 panel - Serum or Plasma COMPREHENSIVE METABOLIC PANEL Lab Routine Encounter for therapeutic drug monitoring Expected: 06/01/2024, Expires: 08/31/2024 [facility] Comment on above: Expected: 06/01/2024, Expires: Start: 06-01-2024 End: 08-31-2024 Lipid 1996 panel - Serum or Plasma LIPID PANEL BASIC Lab Routine Screening for lipid disorders Expected: 06/01/2024, Expires: 08/31/2024 [facility] Comment on above: Expected: 06/01/2024, Expires: Start: 06-01-2024 End: 08-31-2024 Magnesium [Mass/volume] in Serum or Plasma MAGNESIUM Lab Routine Encounter for therapeutic drug monitoring Expected: 06/01/2024, Expires: 08/31/2024 [facility] Comment on above: Expected: 06/01/2024, Expires: Start: 06-01-2024 End: 08-31-2024 Thyrotropin [Units/volume] in Serum or Plasma THYROID STIMULATING HORMONE Lab Routine Memory impairment Expected: 06/01/2024, Expires: 08/31/2024 [facility] Comment on above: Expected: 06/01/2024, Expires: Start: 05-31-2024 End: 05-31-2024 Patient encounter procedure 05/31/2024 2:40 PM EDT Office Visit Internal Medicine [address] [phone] Sydnee Sumner APRN.[employer] SERVICE MANAGER [address] [place] [phone] Physical Internal Medicine [place] Comment on above: Physical Start: 05-16-2024 End: 05-16-2024 Patient encounter procedure 05/16/2024 11:40 AM EDT Office Visit Dermatology [facility] [address] [place], [place] [phone] Mamie Zaldivar PA-C [address] [place] [address] skin check Dermatology [facility] Comment on above: skin check Start: 04-30-2024 Covid-19 Vaccine () Covid-19 Vaccine () [facility] Start: 04-30-2024 Covid-19 Vaccine () Covid-19 Vaccine () [facility] Start: 04-30-2024 Influenza vaccination Influenza Vaccine (#1) [facility] Start: 02-27-2024 Influenza vaccination Influenza Vaccine (#1) [facility] Comment on above: Postponed from 04/30/2023 (Declined at t his time) Start: 08-30-2023 Behavioral Health Screening Behavioral Health Screening [facility] Start: 08-30-2023 Depression Assessment Depression Assessment [facility] Start: 07-12-2023 Hzv zoster vacc recombinant adjuvanted im njx ZOSTER VACCINE, RECOMBINANT (SHINGRIX) Immunization/Injection Routine Encounter for immunization Expected: 07/12/2023 [facility] Work Phone: Comment on above: Expected: 07/12/2023 Start: 06-30-2023 Mammography [facility] Start: 06-30-2023 Screening for malignant neoplasm of breast Mammogram Screening [facility] Start: 04-30-2023 Covid-19 Vaccine () Covid-19 Vaccine () [facility] Start: 04-30-2023 Influenza vaccination [facility] Start: 04-22-2023 End: 06-22-2023 25-hydroxyvitamin D3 [Mass/volume] in Serum or Plasma VITAMIN D 25 HYDROXY Lab Routine Vitamin D deficiency Expected: 04/22/2023, Expires: 06/22/2023 [facility] Work Phone: Comment on above: Expected: 04/22/2023, Expires: Start: 04-22-2023 HEPATITIS B (1 of 3 - 3-dose series) HEPATITIS B (1 of 3 - 3-dose series) [facility] Comment on above: Postponed from 1970 (Declined at t his time) Start: 04-22-2023 End: 06-22-2023 Lipid 1996 panel - Serum or Plasma LIPID PANEL BASIC Lab Routine Pure hypercholesterolemia Expected: 04/22/2023, Expires: 06/22/2023 [facility] Work Phone: Comment on above: Expected: 04/22/2023, Expires: 3 Start: 04-22-2023 SHINGRIX VACCINE (1 of 2) SHINGRIX VACCINE (1 of 2) [facility] Comment on above: Postponed from 2020 (Declined at t his time) Start: 01-27-2023 Adult depression screening assessment DEPRESSION SCREENING [facility] Start: 12-12-2022 Adult depression screening assessment DEPRESSION SCREENING [facility] Start: 10-02-2022 End: 12-02-2022 POLYMYOSITIS AND DERMATOMYOSITIS PANEL POLYMYOSITIS AND DERMATOMYOSITIS PANEL Lab Routine Positive (antinuclear antibody) Expected: 10/02/2022 (Approximate), Expires: 12/02/2022 [facility] Work Phone: Comment on above: Expected: 10/02/2022 (Approximate), Expi res: 12/02/2022 Start: 08-30-2022 DEPRESSION ASSESSMENT DEPRESSION ASSESSMENT [facility] Start: 07-02-2022 End: 09-01-2022 POLYMYOSITIS AND DERMATOMYOSITIS PANEL [facility] Work Phone: Comment on above: Expected: 07/02/2022, Expires: 3 Start: 06-12-2022 Mammography MAMMOGRAM [facility] Start: 04-30-2022 Influenza vaccination [facility] Start: 04-23-2022 Urine microalbumin profile [facility] Start: 04-22-2022 End: 06-22-2022 CBC W Auto Differential panel - Blood CBC + DIFF Lab Routine Encounter for long-term current use of medication Expected: 04/22/2022, Expires: 06/22/2022 [facility] Work Phone: Comment on above: Expected: 04/22/2022, Expires: 2 Start: 04-22-2022 End: 06-22-2022 Comprehensive metabolic 2000 panel - Serum or Plasma COMP METABOLIC PANEL Lab Routine Encounter for long-term current use of medication Expected: 04/22/2022, Expires: 06/22/2022 [facility] Work Phone: Comment on above: Expected: 04/22/2022, Expires: 2 Start: 04-22-2022 End: 06-22-2022 Lipid 1996 panel - Serum or Plasma LIPID PANEL BASIC Lab Routine Pure hypercholesterolemia Expected: 04/22/2022, Expires: 06/22/2022 [facility] Work Phone: Comment on above: Expected: 04/22/2022, Expires: 2 Start: 02-27-2022 End: 01-28-2023 US CAROTID ARTERIES [facility] US CAROTID ARTERIES [facility] Vascular Lab Routine Bruit Expected: 02/27/2022, Expires: 01/28/2023 [facility] Work Phone: Comment on above: Expected: 02/27/2022, Expires: 3 Start: 01-29-2022 End: 03-31-2022 DNA double strand Ab [Units/volume] in Serum by Immunoassay [facility] Work Phone: Comment on above: Expected: 01/29/2022, Expires: 2 Start: 01-29-2022 End: 03-31-2022 Urinalysis complete panel - Urine [facility] Work Phone: Comment on above: Expected: 01/29/2022, Expires: 2 Start: 01-28-2022 End: 03-30-2022 Comprehensive metabolic 2000 panel - Serum or Plasma COMP METABOLIC PANEL Lab Routine Mixed hyperlipidemia Expected: 01/28/2022, Expires: 03/30/2022 [facility] Work Phone: Comment on above: Expected: 01/28/2022, Expires: 2 Start: 01-28-2022 End: 03-30-2022 LIPID PANEL BASIC LIPID PANEL BASIC Lab Routine Mixed hyperlipidemia Expected: 01/28/2022, Expires: 03/30/2022 [facility] Work Phone: Comment on above: Expected: 01/28/2022, Expires: 2 Start: 01-14-2022 HPV TESTING HPV TESTING [facility] Start: 01-14-2022 PAP TESTING PAP TESTING [facility] Start: 01-14-2022 Screening for malignant neoplasm of cervix [facility] Start: 12-31-2021 End: 01-23-2023 Cta hrt cornry art/bypass grfts contrst 3d post CTA CORONARY W IVCON Radiology Routine ACS (acute coronary syndrome) (HCC) Expected: 12/31/2021, Expires: 01/23/2023 [facility] Work Phone: Comment on above: Expected: 12/31/2021, Expires: 3 Start: 12-12-2021 End: 02-11-2022 C reactive protein [Mass/volume] in Serum or Plasma [facility] Work Phone: Comment on above: Expected: 12/12/2021, Expires: 2 Start: 12-12-2021 End: 02-11-2022 Erythrocyte sedimentation rate [facility] Work Phone: Comment on above: Expected: 12/12/2021, Expires: 2 Start: 10-21-2021 Adult depression screening assessment DEPRESSION SCREENING [facility] Start: 08-30-2021 DEPRESSION ASSESSMENT DEPRESSION ASSESSMENT [facility] Start: 04-18-2021 COVID-19 VACCINE (3 - Booster for Pfizer series) COVID-19 VACCINE (3 - Booster for Pfizer series) [facility] Start: 01-11-2021 COVID-19 VACCINE (3 - Booster for Pfizer series) COVID-19 VACCINE (3 - Booster for Pfizer series) [facility] Start: 01-11-2021 COVID-19 VACCINE (3 - Pfizer series) COVID-19 VACCINE (3 - Pfizer series) [facility] Start: 2020 Pneumococcal Vaccine: 50+ (1 of 1 - PCV) Pneumococcal Vaccine: 50+ (1 of 1 - PCV) [facility] Start: 2020 SHINGRIX VACCINE (1 of 2) SHINGRIX VACCINE (1 of 2) [facility] Start: 2015 COLOGUARD (FIT-DNA) COLOGUARD (FIT-DNA) [facility] Start: [address] COLONOGRAPHY [facility] Start: 2015 FECAL OCCULT BLOOD FECAL OCCULT BLOOD [facility] Start: 2015 Screening for malignant neoplasm of colon [facility] Start: 2015 SIGMOIDOSCOPY SIGMOIDOSCOPY [facility] Start: 10-21-2007 Urine microalbumin profile DTAP,TDAP,TD (1 - Tdap) [facility] Start: 1989 Hepatitis B Vaccine (1 of 3 - 19+ 3-dose series) Hepatitis B Vaccine (1 of 3 - 19+ 3-dose series) [facility] Start: 1988 Anxiety Screening Anxiety Screening [facility] Start: 1988 Depression Screening Depression Screening [facility] Start: 1970 Hepatitis B Vaccine (1 of 3 - 3-dose series) Hepatitis B Vaccine (1 of 3 - 3-dose series) [facility] End: 07-02-2023 CBC W Auto Differential panel - Blood CBC + DIFF Lab Routine Positive (antinuclear antibody) Every 6 months for 2 Occurrences starting 07/02/2022 until 07/02/2023 [facility] Work Phone: Comment on above: Every 6 months for 2 Occurrences startin g 07/02/2022 until 07/02/2023 End: 07-02-2023 Complement C3 [Mass/volume] in Serum or Plasma C3 COMPLEMENT BLD Lab Routine Positive (antinuclear antibody) Every 6 months for 2 Occurrences starting 07/02/2022 until 07/02/2023 [facility] Work Phone: Comment on above: Every 6 months for 2 Occurrences startin g 07/02/2022 until 07/02/2023 End: 07-02-2023 Complement C4 [Mass/volume] in Serum or Plasma C4 COMPLEMENT BLD Lab Routine Positive (antinuclear antibody) Every 6 months for 2 Occurrences starting 07/02/2022 until 07/02/2023 [facility] Work Phone: Comment on above: Every 6 months for 2 Occurrences startin g 07/02/2022 until 07/02/2023 End: 07-02-2023 Comprehensive metabolic 2000 panel - Serum or Plasma COMP METABOLIC PANEL Lab Routine Positive (antinuclear antibody) Every 6 months for 2 Occurrences starting 07/02/2022 until 07/02/2023 [facility] Work Phone: Comment on above: Every 6 months for 2 Occurrences startin g 07/02/2022 until 07/02/2023 End: 12-10-2025 DBT Breast - bilateral screening DESTINEE SCREENING W [facility] Radiology Routine Encounter for screening mammogram for breast cancer 1 Occurrences starting 11/10/2024 until 12/10/2025 [facility] Work Phone: Comment on above: 1 Occurrences starting 11/10/2024 until 12/10/2025 DBT Breast - bilater al screening DESTINEE SCREENING W [facility] Radiology Routine Encounter for screening mammogram for breast cancer 11/20/2024 2:34 PM EDT [facility] Work Phone: End: 03-01-2025 ECG COMPLETE ECG COMPLETE ECG Routine Palpitations Family history of ischemic heart disease Pure hypercholesterolemia Raynaud's phenomenon without gangrene 1 Occurrences starting 03/01/2024 until 03/01/2025 [facility] Work Phone: Comment on above: 1 Occurrences starting 03/01/2024 until 03/01/2025 End: 09-02-2024 DESTINEE SCREENING DESTINEE SCREENING Radiology Routine Encounter for screening mammogram for breast cancer 1 Occurrences starting 08/04/2023 until 09/02/2024 [facility] Work Phone: Comment on above: 1 Occurrences starting 08/04/2023 until 09/02/2024 MG Breast Screening DESTINEE SCREENIN G Radiology Routine Encounter for screening mammogram for breast cancer 11/10/2023 3:38 PM EDT [facility] Work Phone: OUTSIDE VENDOR CARDI AC OUTPATIENT EXTENDED RHYTHM RECORDING (WITHOUT TELEMETRY) OUTSIDE VENDOR CARDIAC OUTPATIENT EXTENDED RHYTHM RECORDING (WITHOUT TELEMETRY) Holter Routine Palpitations Ordered: 12/24/2021 [facility] Work Phone: Comment on above: Ordered: 12/24/2021 OUTSIDE VENDOR CARDI AC OUTPATIENT EXTENDED RHYTHM RECORDING (WITHOUT TELEMETRY) OUTSIDE VENDOR CARDIAC OUTPATIENT EXTENDED RHYTHM RECORDING (WITHOUT TELEMETRY) Holter Routine Atypical chest pain Palpitations Ordered: 01/06/2022 [facility] Work Phone: Comment on above: Ordered: 01/06/2022 Patient Education [facility] Work Phone: Patient referral [facility] Work Phone: End: 07-30-2023 Screening mammography bi 2-view breast inc cad DESTINEE SCREENING Radiology Routine Encounter for screening mammogram for breast cancer 1 Occurrences starting 06/30/2022 until 07/30/2023 [facility] Work Phone: Comment on above: 1 Occurrences starting 06/30/2022 until 07/30/2023 SURGICAL PATHOLOGY S KIN ONLY [facility] Work Phone: Comment on above: Release Upon Ordering for 1 Occurrences starting 04/16/2023, 1 completed End: 07-02-2023 Urinalysis complete panel - Urine URINALYSIS, WITH MICROSCOPIC Lab Routine Positive (antinuclear antibody) Every 6 months for 2 Occurrences starting 07/02/2022 until 07/02/2023 [facility] Work Phone: Comment on above: Every 6 months for 2 Occurrences startin g 07/02/2022 until 07/02/2023 End: 05-20-2024 US ABD RIGHT UPPER QUADRANT US ABD RIGHT UPPER QUADRANT Radiology Routine Abdominal pain, RUQ (right upper quadrant) 1 Occurrences starting 04/21/2023 until 05/20/2024 [facility] Work Phone: Comment on above: 1 Occurrences starting 04/21/2023 until 05/20/2024 End: 02-10-2024 XR SHOULDER GENERAL 3V OR MORE AP/TRUE AP/OTHER RIGHT XR SHOULDER GENERAL 3V OR MORE AP/TRUE AP/OTHER RIGHT Radiology Routine Acute pain of right shoulder 1 Occurrences starting 01/11/2023 until 02/10/2024 [facility] Work Phone: Comment on above: 1 Occurrences starting 01/11/2023 until 02/10/2024 [facility] [place] Immunizations Immunization Date Immunization Notes Care Provider Jone acevedo 04-22-2022 tetanus and diphther ia toxoids, adsorbed, preservative free, for adult use (2 Lf of tetanus toxoid and 2 Lf of diphtheria toxoid) Domonique Guzman MD Work Phone: [facility] 11-16-2020 COVID-19 vaccine, ag e 12+ yr (PFIZER-BIONTECH - PURPLE TOP) Nessa Gonzáles APRN.[facility] Work Phone: [facility] Work Phone: 10-26-2020 COVID-19 vaccine, ag e 12+ yr (PFIZER-BIONTECH - PURPLE TOP) Nessa Gonzáles APRN.[facility] Work Phone: [facility] Work Phone: 05-13-2017 influenza virus vaccine, unspecified formulation Sydnee Sumnre ASSOCIATE DIRECTOR FINANCIAL AID.[facility] Work Phone: [facility] 10-20-2007 tetanus and diphther ia toxoids, adsorbed, preservative free, for adult use (2 Lf of tetanus toxoid and 2 Lf of diphtheria toxoid) Nessa Gonzáles APRN.[facility] Work Phone: [facility] Work Phone: Payers Date Payer Category Payer Self-pay [id number] 2018 Private Health Insurance MMO [employer] PPO [id number] 2018 Unknown MMO MMO [employer] [id number] 2018-Present [phone] [address] [place] [address] PPO [id number] 2018 Unknown [id number] 2018 Unknown [id number] Unknown [id number] Unknown [id number] Social History Date Type Detail Facility Start: 11-30-2021 End: 09-08-2022 Tobacco smoking status NHIS Unknown if ever smoked [facility] Start: 1970 Sex Assigned At Female W [facility] Start: 01-24-2015 End: 04-02-2025 Tobacco smoking status NHIS Never smoked tobacco [facility] Start: 06-02-2021 End: 12-20-2024 Alcohol intake Current drinker of alcohol (finding) [facility] Start: 12-26-2019 History SDOH Alcohol Frequency 3 [facility] Start: 12-26-2019 End: 08-12-2021 History SDOH Alcohol Std Drinks 1 [facility] Start: 12-26-2019 History SDOH Social Connections Phone 5 [facility] Start: 12-26-2019 History SDKS Social Connections Get Together 4 [facility] Start: 12-26-2019 End: 08-12-2021 History SDOH Social Connections Membership 2 [facility] Start: 12-25-2019 Education 21 [facility] Start: 1970 Sex Assigned At Not on file [facility] Start: 07-14-2021 End: 07-02-2022 Exposure to SARS-CoV-2 (event) Not sure [facility] Work Phone: Start: 01-24-2015 Tobacco use and exposure Smoke less tobacco non-user [facility] Start: 12-25-2019 End: 02-23-2023 History of Social function [facility] Start: 12-25-2019 End: 02-23-2023 Social connection and isolation panel [facility] Do you belong to any clubs or organizations such as orthodoxy groups, unions, fraternal or athletic groups, or school groups? No [facility] Attends Club or Organization Meetings Not on file [facility] Are you now , , , , never or living with a partner? [facility] How often to you hav e a drink containing alcohol? 2-4 times a month [facility] How many standard dr inks containing alcohol do you have on a typical day? 1 or 2 [facility] How often do you hav e 6 or more drinks on 1 occasion? Never [facility] Do you feel stress - tense, restless, nervous, or anxious, or unable to sleep at night because your mind is troubled all the time - these days [OSQ] Not at all [facility] (I/We) worried jam er (my/our) food would run out before (I/we) got money to buy more. Never true [facility] Do you feel stress - tense, restless, nervous, or anxious, or unable to sleep at night because your mind is troubled all the time - these days [OSQ] Only a little [facility] Start: 11-10-2024 Sex Female (finding) [place] [facility] Goals Date Patient Goal Desired Activity /State Personal health goal Functional Status Date Assessment Result Facility 11-09-2017 Are you deaf, or do you have serious difficulty hearing No 11/09/2017 5:19 PM EDT Domonique Guzman MD No [facility] 11-09-2017 Are you blind, or do you have serious difficulty seeing, even when wearing glasses No 11/09/2017 5:19 PM EDT Domonique Guzman MD No [facility] 11-09-2017 Do you have serious difficulty walking or climbing stairs No 11/09/2017 5:19 PM EDT Domonique Guzman MD No [facility] 11-09-2017 Do you have difficul ty dressing or bathing No 11/09/2017 5:19 PM EDT Domonique Guzman MD No [facility] 11-09-2017 Because of a physica l, mental, or emotional condition, do you have difficulty doing errands alone such as visiting a physician's office or shopping No 11/09/2017 5:19 PM EDT Domonique Guzman MD No [facility] Mental Status Date Assessment Result Facility 01-05-2022 Cognitive function Level Of Cons ciousness Awake;Alert;Appropriate;Fol lows Commands [facility] Work Phone: 12-19-2021 Cognitive function Voice/Name [facility] Work Phone: 11-30-2021 Cognitive function Voice/Name [facility] Work Phone: 11-09-2017 Because of a physica l, mental, or emotional condition, do you have serious difficulty concentrating, remembering, or making decisions No 11/09/2017 5:19 PM EDT Domonique Guzman MD [facility] Clinical Notes 01-08-2015 to 04-02-2025 Note Date & Type Note Facility 04-02-2025 Discharge [address] [facility] 04-02-2025 Radiology Diagnostic study note [facility] Imaging Services [address] [place], [place] [id number] Spine Cervical without Contras MR#: [id number] Acct: [id number] Name: JUSTINE BERGERON Rep #: [id number] : 1970 F 54 From: Jefferson Wahl MD PCP: Dr. Domonique Guzman MD Status: RE G ER Study:Spine Cervical without Contras Date of Exam: 04/02/25 Exam# [id number] Ordering Dr: Silvia Cohn MD PROCEDURE: SPINE CERVICAL WITHOUT CONTRAS 04/02/2025 REASON FOR EXAM: PAIN/NECK TRAUMA TECHNIQUE: SPINE CERVICAL WITHOUT CONTRAS Coronal and Sagittal reconstruction series were provided. One or more dose reduction techniques were used (e.g., Automated exposure control, adjustment of the mA and/or kV according to patient size, use of iterative reconstruction technique. RADIATION DOSE SUMMARY: CTDlvol: 15.84 mGy DLP: 1049.16 mGycm COMPARISON: None. FINDINGS: Alignment: Normal. Vertebrae: No acute fractures. Soft Tissues: No soft tissue abnormalities. Disc levels: Multilevel degenerative changes predominantly at C5-C6 and C6-C7 where there is disc space narrowing without significant foraminal or canal stenosis. CT/Spine Cervical without Contras IMPRESSION: No acute injuries to the cervical spine. Reading Location: [facility] CC: Dr. Samson Cohn MD; Dr. Domonique Guzman MD ~ Wire Brusher: Signed [facility] 04-02-2025 Radiology Diagnostic study note [facility] Imaging Services [address] [place] [id number] Brain/Head without Contrast MR#: [id number] Acct: [id number] Name: JUSTINE BERGERON Rep #: [id number] : 1970 F 54 From: Jefferson Wahl MD PCP: Dr. Domonique uGzman MD Status: RE G ER Study:Brain/Head without Contrast Date of Exa m: 04/02/25 Exam# [id number] Ordering Dr: Silvia Cohn MD PROCEDURE: BRAIN/HEAD WITHOUT CONTRAST 04/02/2025 REASON FOR EXAM: TRAUMA R TEMPORAL, HEADACHE TECHNIQUE: BRAIN/HEAD WITHOUT CONTRAST Coronal and Sagittal reconstruction series were provided. One or more dose reduction techniques were used (e.g., Automated exposure control, adjustment of the mA and/or kV according to patient size, use of iterative reconstruction technique. RADIATION DOSE SUMMARY: CTDlvol: 15.84 mGy DLP: 269.92 mGycm COMPARISON: None. FINDINGS: Brain: Unremarkable. No acute territorial vascular infarction. No intracranialhemorrhage. No mass effect or midline shift. CSF Spaces: Unremarkable. Sinuses/Mastoids: Clear. Bones: No acute fractures. CT/Brain/Head without Contrast IMPRESSION: No acute intracranial abnormalities. Reading Location: [facility] CC: Dr. Samson Cohn MD; Dr. Domonique Guzman MD ~ Wire Brusher: Signed [facility] 04-02-2025 Discharge summary Note Date/Time April 02, 2025 5:51pm [facility] Medical Records Department [address] [place] [address] Emergency Department Summary 04/02/25 MR#: [id number] Acct: [id number] Name: JUSTINE BERGERON Rep #:[id number] : 1970 54 From: Samson Cohn MD PCP: Dr. Domonique Guzman MD Status:RE G ER Location: ED HPI HPI - Fall History of Present Illness Chief Complaint: Fall Informant: patient Narrative Narrative: 54-year-old healthy female states she was cleaning out a large garbage tote, shehad it turned over on the ground and lost her footing and fell over toward the ground, hitting her head against the tote as she fell, and torquing her neck toward the left creating some right sided neck pain. No loss of consciousness, nausea, vomiting, vision changes. She takes baby aspirin daily for preventativereasons, there is a strong family history of heart problems in her side of the family. No anticoagulants or other antiplatelets. No other pain or injury. Nonumbness tingling weakness in her arm or leg. [facility] Medical History GERD (gastroesophageal reflux disease) Fibromyalgia Mitral valve prolapse Hyperlipemia Herniated lumbar intervertebral disc Home Medications ?Medication ?Instructions ?Recorded ?Last Taken ?Type Cholecalciferol (Vitamin D3) 2,000 unit PO DAILY 08/15 Unknown History [Vitamin D3] multivitamin 1 tab PO DAILY 09/03/21 Unkn own History rosuvastatin 5 mg tablet (Crestor) 10 mg PO QHS Unknown History omeprazole 20 mg capsule,delayed 20 mg PO DAILY Unknown History release aspirin 81 mg PO/SL DAILY 01/05/22 U nknown History metoprolol succinate 50 mg 50 mg PO DAILY 09/08/22 Unk nown History tablet,extended release 24 hr verapamil 120 mg tablet,extended 120 mg PO DAILY 04/02 Unknown History release Allergy/AdvReac Type Severity Reaction Status Date / Time naproxen (From Aleve) AdvReac Severe Tachycardia Verified 04/02/25 15:40 codeine AdvReac Vomiting Verified 04/02/25 15:40 levofloxacin (From Levaquin) AdvReac Other Verified 04/02/25 15:40 Family History Other Diabetes Heart disease Hypertension Surgical History H/O dilation and curettage History of delivery History of hernia repair Social History household members: family number of children: 1 current occupational status: employed current occupation: [employer] pets and animals: Yes Smoking Status: Never smoker second hand exposure: No alcohol intake: current alcohol intake frequency: a few times a month Alcohol type: beer and wine substance use type: does not use seatbelt use: always do you feel safe at home: Yes additional social history: - [employer] [facility] ED Constitutional Constitutional ED: Denies chills or fever(s) Eyes Eyes: Denies blurry vision, change in vision or diplopia ENT ENT ED: Denies rhinorrhea or sore throat Cardiovascular Cardiovascular: Denies chest pain or palpitations Respiratory/Chest Respiratory/Chest: Denies cough or dyspnea Gastrointestinal Gastrointestinal: Denies abdominal pain, diarrhea, nausea or vomiting Genitourinary Genitourinary ED: Denies dysuria or hematuria Musculoskeletal Musculoskeletal: Reports neck pain; Denies back pain Integumentary Denies abscess or rash Neurologic Neurologic: Reports headache(s); Denies paresthesias or weakness Psychiatric Psychiatric: Denies suicidal thoughts EXAM Physical Exam Const Vital Signs: 04/02/25 15:39 04/02/25 15:39 Temperature 98 F Temperature Source Temporal Pulse Rate 105 H Respiratory Rate 18 Respiratory Effort Normal Non-Labored Respiratory Depth Normal Respiratory Pattern Normal Blood Pressure 161/86 H Blood Pressure Mean 111 Pulse Ox 99 Oxygen Delivery Method Room Air Room Air Positive well nourished and well developed General Appearance ED: well developed and NAD HEENT Reports moist mucous membranes HEENT Narrative: No Murray sign, no raccoon eyes, no CSF otorhinorrhea, no hemotympanum. There is a small tender hematoma right temporal scalp, and an abrasion is higher up atthe top of the head a little to the right high parietal without hematoma. Throughout the scalp there is no crepitance or depression. No evidence of facial trauma no intraoral or dental trauma. trauma and hematoma Eyes PERRL and EOMs intact bilaterally Eyes Narrative: No extraocular entrapment or pain with movements. No diplopia with movements. Neck full ROM and supple Neck Narrative: Patient moving neck/head in all directions without limitation. She does have some mild tenderness in the C2-3 midline without step-off or any other areas of midline tenderness throughout the back or neck. Resp normal respiratory effort GI non-tender and non-distended Auscultation: normoactive bowel sounds Palpation: soft Back/Spine no CVA tenderness General Back: other FROM Thoracic Spine / Upper Back: Negative for thoracic spinal tenderness Lumbar Spine / Lower Back: Negative for lumbar spinal tenderness Extremity normal to inspection General Extremety ED: Negative for edema, pulses abnormal or tenderness General Extremity: Negative for edema or pulses abnormal Neuro oriented x3, CN's II-XII intact bilaterally and no sensory deficits noted Tania Coma Scale: document GCS findings Spontaneous Obeys Commands Oriented 15 Sensorium / Orientation: awake and alert Motor Exam: strength 5/5 throughout Psych mental status grossly normal and thought process normal Skin no rashes or lesions noted and no wounds Skin Narrative: Scalp abrasion see above no lacerations MDM MDM MDM Narrative Medical decision making narrative: CT of the head and cervical spine were obtained, my interpretation they are unremarkable radiology in agreement I agree with the reports. Patient doing well. I offered her some ibuprofen or other analgesics and ice pack, she declined, she is comfortable going home just wanted to make sure she was okay. We discussed signs symptoms of concussion, reasons to return to the ER but at this time there is no evidence of intracranial hemorrhage, skull fracture, cervical spine fracture, supportive care is advised and close outpatient follow-up as needed. Radiography Diagnostic Testing: Clinical Impression(s) from Imaging Studies Brain CT 04/02/25 16:40 IMPRESSION: No acute intracranial abnormalities. Reading Location: [facility] Cervical Spine CT 04/02/25 16:40 IMPRESSION: No acute injuries to the cervical spine. Reading Location: [facility] Discharge Plan Triage Chief Complaint: Fall ED Provider: Samson Cohn Dx/Rx/DC Orders Clinical Impression: Fall from slip, trip, or stumble, Closed head injury without loss of consciousness, Acute cervical myofascial strain Instructions: ED Head Injury (Adult) Prescriptions: No Action rosuvastatin [Crestor] 5 mg tablet 10 mg PO QHS multivitamin Tablet 1 tab PO DAILY metoprolol succinate 50 mg tablet extended release 24 hr 50 mg PO DAILY Cholecalciferol (Vitamin D3) [Vitamin D3] 5,000 UNIT capsule 2,000 unit PO DAILY omeprazole 20 mg capsule,delayed release(DR/EC) 20 mg PO DAILY Patient Comments: TAKE 1 CAPSULE BY MOUTH ONCE DAILY BEFORE BREAKFAST aspirin 81 mg PO/SL DAILY verapamil 120 mg tablet extended release 120 mg PO DAILY Primary Care Provider: Domonique Guzman Referrals: Domonique Guzman MD [Primary Care Provider] - 1 Week if not improving Print Language: Indonesian Disposition Disposition: Home, Self Care What to do if you have Problems For any increased pain, shortness of breath, bleeding, nausea or vomiting, chestpain, or any unexpected problems, contact your Primary Care Provider. Call [facility] ([phone]) or report to the closest Emergency Room. Call 911 if necessary. 04/02/25 1751 <Electronically signed by Samson Cohn MD> Cosigner Signature (if applicable): CC: Dr. Domonique Guzman MD ~ Signed [facility] Work Phone: [phone] Telephone encounter Note* Telephone Encounter - Luis Ricks - 02/21/2025 3:07 PM EDT Call from pharmacy requesting refill. Requested Prescriptions Pending Prescriptions Disp Refills rosuvastatin (CRESTOR) 20 mg tablet 90 tablet 3 Sig: Take 1 tablet by mouth daily at bedtime. Patient last seen 12/20/24 Luis Ricks [facility]06-25-2025 Miscellaneous Notes* Telephone Encounter - Luis Ricks - 02/21/2025 3:07 PM EDT Call from pharmacy requesting refill. Requested Prescriptions Pending Prescriptions Disp Refills rosuvastatin (CRESTOR) 20 mg tablet 90 tablet 3 Sig: Take 1 tablet by mouth daily at bedtime. Patient last seen 12/20/24 Luis Ricks documented in [facility] History of Present illness Narrative* Carlton Pabon MD - 01/03/2025 3:40 PM EDT Est Patient Chief Complaint: Full body skin exam History of Present Ilness: Justine Bergeron is a 54 year old female Patient is here for: 1) Full body skin exam Lesions of concern on the right shoulder bilateral cheeks Duration: multiple months Denies itching, bleeding or pain Pertinent Past Medical History: History of skin cancer or atypical nevi: Yes BCC right mandible Mohs 07/12/2023 Specialty Problems None Pertinent Family medical history: History of melanoma Yes maternal great uncle Review of Systems: Constitutional: Denies fever, chills, night sweats, unintentional weight loss. Skin per HPI. No other new/concerning skin growth. Physical Exam: General: well appearing, of stated age, in no acute distress Neurology: alert and oriented times three Psychiatry: in a happy mood Skin: Guardado skin type: II Skin exam performed of face, scalp, ears, eyelids, lips, neck, chest, abdomen, back, bilateral upper extremities, hands, fingers, fingernails, bilateral lower extremities, feet, toes, toenails. Skin exam normal with the exception of: - Few scattered bright red dome-shaped papules on the trunk and extremities - Scattered light brown stellate macules on the face, shoulders, chest, and upper extremities - Scattered, evenly colored, round brown macules and papules with regular borders on the trunk and extremities - Numerous scattered skin-colored and brown, waxy, stuck-on papules and plaques on the trunk and extremities -Well healed scar(s) with no signs of recurrence or nodularity at sites of previous procedures. -Face with few yellow 2-4 mm lobulated papules with central dell Assessment and Plan: #Lentigines #Seborrheic keratoses #Siegel angiomas - Reassurance provided regarding the benign nature of these lesions. - Discussed that treatment considered cosmetic and not covered by insurance. #Multiple benign nevi - Complete skin exam performed today with no outlier lesions identified - Reassured patient of benign nature of these lesions. - Recommend monthly self skin exams. Return for lesions that are growing, changing or symptomatic. - Recommend daily photoprotection with broad-spectrum sunscreen, avoidance of sun during peak hours, and sun protective clothing. - Dermoscopy was used for physical examination of pigmented lesions during today s office visit. #Personal history of non melanoma skin cancer No evidence of recurrence on exam. Continued monitoring. Regular skin exams discussed given increased risk of subsequent cutaneous malignancies. - Counseled patient on sun protection with SPF 30 or higher, sun protective clothing such as wide brimmed hats and long sleeves. Recommend avoiding midday sun (10 am- 3 pm). #Allergic contact dermatitis - Most likely allergen: Nickel -Reaction to ring (white gold). Has also previously reacted to costume jewelry/earings - Discussed etiology and avoidance of possible culprits - If no improvement with avoidance and gentle skin care, may consider patch testing - Recommended starting gentle skin care - instructions provided to patient - If want to wear ring occasionally, can use triamcinolone 0.1% ointment twice daily when needed. Do not use more than 5 days per week. Avoid use on face, groin, and axilla. Risks, benefits, and alternatives discussed with patient. #Photoaging - Discussed option for tretinoin 0.0.025% cream cream to be applied in the evening. Risks, benefits, and alternatives discussed with patient. Patient declines at this time. - Recommend daily sun protection using broad-spectrum sunscreen (at least SPF 30), photoprotective clothing, and other photoprotective measures, such as seeking shade when possible. Return to clinic 6 months or sooner if something concerning arises. The documentation for this note was completed by ROXANN Conner acting as scribe for Carlton Pabon MD. January 03, 2025 3:32 PM. Chapo Torres MD, MS PGY2 Dermatology Resident I agree with the Chief Complaint, ROS, and Past Histories independently gathered by the clinical retail support associate and the remaining scribed note accurately describes my personal service to the patient. Carlton Pabon MD January 03, 2025 documented in this encounterBl[facility] NoteHNO ID: [id number] Author: CARLTON PABON MD Service: ? Author Type: Physician Type: Progress Notes Filed: 01/03/2025 16:53 Note Text: Est Patient Chief Complaint: Full body skin exam History of Present Ilness: Justine Bergeron is a 54 year old female Patient is here for: 1) Full body skin exam Lesions of concern on the right shoulder bilateral cheeks Duration: multiple months Denies itching, bleeding or pain Pertinent Past Medical History: History of skin cancer or atypical nevi: Yes BCC right mandible Mohs 07/12/2023 Specialty Problems None Pertinent Family medical history: History of melanoma Yes maternal great uncle Review of Systems: Constitutional: Denies fever, chills, night sweats, unintentional weight loss. Skin per HPI. No other new/concerning skin growth. Physical Exam: General: well appearing, of stated age, in no acute distress Neurology: alert and oriented times three Psychiatry: in a happy mood Skin: Guardado skin type: II Skin exam performed of face, scalp, ears, eyelids, lips, neck, chest, abdomen, back, bilateral upper extremities, hands, fingers, fingernails, bilateral lower extremities, feet, toes, toenails. Skin exam normal with the exception of: - Few scattered bright red dome-shaped papules on the trunk and extremities - Scattered light brown stellate macules on the face, shoulders, chest, and upper extremities - Scattered, evenly colored, round brown macules and papules with regular borders on the trunk and extremities - Numerous scattered skin-colored and brown, waxy, stuck-on papules and plaques on the trunk and extremities -Well healed scar(s) with no signs of recurrence or nodularity at sites of previous procedures. -Face with few yellow 2-4 mm lobulated papules with central dell Assessment and Plan: #Lentigines #Seborrheic keratoses #Siegel angiomas - Reassurance provided regarding the benign nature of these lesions. - Discussed that treatment considered cosmetic and not covered by insurance. #Multiple benign nevi - Complete skin exam performed today with no outlier lesions identified - Reassured patient of benign nature of these lesions. - Recommend monthly self skin exams. Return for lesions that are growing, changing or symptomatic. - Recommend daily photoprotection with broad-spectrum sunscreen, avoidance of sun during peak hours, and sun protective clothing. - Dermoscopy was used for physical examination of pigmented lesions during today?s office visit. #Personal history of non melanoma skin cancer No evidence of recurrence on exam. Continued monitoring. Regular skin exams discussed given increased risk of subsequent cutaneous malignancies. - Counseled patient on sun protection with SPF 30 or higher, sun protective clothing such as wide brimmed hats and long sleeves. Recommend avoiding midday sun (10 am- 3 pm). #Allergic contact dermatitis - Most likely allergen: Nickel -Reaction to ring (white gold). Has also previously reacted to costume jewelry/earings - Discussed etiology and avoidance of possible culprits - If no improvement with avoidance and gentle skin care, may consider patch testing - Recommended starting gentle skin care - instructions provided to patient - If want to wear ring occasionally, can use triamcinolone 0.1% ointment twice daily when needed. Do not use more than 5 days per week. Avoid use on face, groin, and axilla. Risks, benefits, and alternatives discussed with patient. #Photoaging - Discussed option for tretinoin 0.0.025% cream cream to be applied in the evening. Risks, benefits, and alternatives discussed with patient. Patient declines at this time. - Recommend daily sun protection using broad-spectrum sunscreen (at least SPF 30), photoprotective clothing, and other photoprotective measures, such as seeking shade when possible. Return to clinic 6 months or sooner if something concerning arises. The documentation for this note was completed by ROXANN Conner acting as scribe for Carlton Pabon MD. January 03, 2025 3:32 PM. Chapo Torres MD, MS PGY2 Dermatology Resident I agree with the Chief Complaint, ROS, and Past Histories independently gathered by the clinical retail support associate and the remaining scribed note accurately describes my personal service to the patient. Carlton Pabon MD January 03[facility]04[facility] NoteHNO ID: [id number] Author: JIMMY QUINTANA MD Service: ? Author Type: Physician Type: Progress Notes Filed: 12/20/2024 11:03 Note Text: Heart, Vascular and Thoracic [place] [facility] Department of Cardiovascular Medicine SECTION OF INTERVENTIONAL CARDIOLOGY OUTPATIENT VISIT DATE December 20, 2024 OUTPATIENT VISIT TYPE ESTABLISHED PRIMARY CARE PHYSICIAN: Domonique Guzman [address] [place] [address] REFERRING PHYSICIAN: Jimmy Quintana [address] [facility] [id number] CHIEF COMPLAINT: No chief complaint on file. HISTORY OF PRESENT ILLNESS: Ms. Bergeron is a 54 year old female who presents today for follow-up visit . She denies . PAST CARDIAC HISTORY: See HPI PAST MEDICAL HISTORY Diagnosis Date Anemia treated with iron in past Arthritis Displacement of intervertebral disc, site unspecified, without myelopathy cervical and lower back Family history of early CAD Fibromyalgia Heart murmur Mammographic microcalcification Mitral valve disorders(424.0) MVP MVP (mitral valve prolapse) 11/06/2010 Near syncope Other and unspecified hyperlipidemia 2019 told high age 22 on RX on and off in past Seizure (HCC) pt told absent seizure' during dental appointment no workup PAST SURGICAL HISTORY Procedure Laterality Date DELIVERY ONLY , low cervical COLONOSCOPY FLX DX W/COLLJ SPEC WHEN PFRMD 03/18/2021 ESOPHAGOGASTRODUODENOSCOPY TRANSORAL DIAGNOSTIC 06/15/2013 EGD ESOPHAGOGASTRODUODENOSCOPY TRANSORAL DIAGNOSTIC 03/18/2021 EYE SURGERY HX PAST SURGICAL HISTORY OF urethra stretching age 2 PAST SURGICAL HISTORY OF DANDC PAST SURGICAL HISTORY OF wisdom teeth RPR UMBILICAL HERNIA < 5 YRS REDUCIBLE 2000 Hernia repair, umbilical <5yr SOCIAL HISTORY Social History Tobacco Use Smoking status: Never Smokeless tobacco: Never Vaping Use Vaping status: Never Used Substance Use Topics Alcohol use: Yes Comment: 1-2 wine or beer a week Drug use: No FAMILY HISTORY Problem Relation Age of Onset Hypertension Mother Diabetes Mother Stroke Mother 62 carotid disease other (CABG) Mother 67 Cancer Father Heart Father 64 PA coronary stent Heart Brother 37 PA 3 stents Hypertension Brother other (Hemophelia) Brother Uterine Fibroids Brother Hypertension Maternal Grandmother other (Myocardial infarction) Maternal Grandfather 54 Diabetes Maternal Grandfather Breast Cancer Paternal Grandmother other (Myocardidal infarction) Paternal Grandmother 80 3 stents other (brain bleeding) Paternal Grandmother other (cousins) Other Mi' age 41-42 Maternal ALLERGIES: ALLERGIES Allergen Reactions Levaquin [Levofloxa* Other: See Comments Numbness, palpitations Aleve [Naproxen Sod* Other: See Comments BP elevation Codeine GI Upset Heart pounding Epinephrine Other: See Comments Heart races. Heart palpitations. MEDICATIONS: Current Outpatient Medications Medication Sig metoprolol succinate ER (TOPROL XL) 50 mg 24 hr tablet Take 1 tablet by mouth once daily. rosuvastatin (CRESTOR) 20 mg tablet Take 1 tablet by mouth daily at bedtime. verapamil SR (CALAN SR) 120 mg CR tablet Take 1 tablet by mouth once daily. Cholecalciferol, Vitamin D3, (VITAMIN D-3) 50 mcg (2,000 unit) cap Take 2,000 Units by mouth once daily. famotidine (PEPCID) 20 mg tablet Take 1 tablet by mouth two times a day. cyclobenzaprine (FLEXERIL) 5 mg tablet Take 1 tablet by mouth daily at bedtime. Take 5 mg at bedtime. Gradually increase to three times a day as tolerated aspirin 81 mg cap Take 81 mg by mouth once daily. multivitamin (MULTIPLE VITAMINS ORAL) Take by mouth. No current facility-administered medications for this visit. REVIEW OF SYSTEMS: PHYSICAL EXAMINATION: LMP 02/07/2024 CARDIOVASCULAR MEDICINE TESTING: Last EKG Result Conclusion EKG Collected: 09/22/2024 7:20 PM (Final result) Impression: NORMAL SINUS RHYTHM NORMAL ECG No STEMI Confirmed by TEJAL ISABEL MD ([id number]) on 09/22/2024 7:29:15 PM IMPRESSION: Ms. Bergeron is a 54 year old female last seen 09/23 with SVT and atyp c/p, feeling better but w wt gain -> CUS, MIBI and early f/u for wt loss Palp x 20 yrs, often break w cough, neg Holter; normal TTE + fm h/o early CAD occ noctural or pleurtic c/p Raynaud's seroneg arthritis ? Fibromyalgia Hb 13.0 Cr 0.7 CRP <0.3 LDL 74 zio 01/18 4 short bursts of SVT CTA 50% mid LAD only TODAY Better diet, lost wt Planning to get TM Brings in picture of well demarcated hand redness which was transient and not related to the cold CUS mild MIBI normal LDL 76 Cr 0.7 BP 118/78 Pulse 69 Resp 14 Ht 152.4 cm (5') Wt 62.9 kg (138 lb 9.6 oz) LMP 02/07/2024 (Approximate) SpO2 98% BMI 27.07 kg/m? pr wt 147 PLAN AND RECOMMENDATIONS: cont current plan CONTACT INFORMATION:[facility]04-23-2025 History of Present illness Narrative* Jimmy Quintana MD - 12/20/2024 10:35 AM EDT Images from the original note were not included. Heart, Vascular and Thoracic [place] [facility] Department of Cardiovascular Medicine SECTION OF INTERVENTIONAL CARDIOLOGY OUTPATIENT VISIT DATE December 20, 2024 OUTPATIENT VISIT TYPE ESTABLISHED PRIMARY CARE PHYSICIAN: Domonique Guzman [address] [place] [address] REFERRING PHYSICIAN: Jimmy Quintana [address] [facility] [address] CHIEF COMPLAINT: No chief complaint on file. HISTORY OF PRESENT ILLNESS: Ms. Bergeron is a 54 year old female who presents today for follow-up visit . She denies . PAST CARDIAC HISTORY: See HPI PAST MEDICAL HISTORY Diagnosis Date Anemia treated with iron in past Arthritis Displacement of intervertebral disc, site unspecified, without myelopathy cervical and lower back Family history of early CAD Fibromyalgia Heart murmur Mammographic microcalcification Mitral valve disorders(424.0) MVP MVP (mitral valve prolapse) 11/06/2010 Near syncope Other and unspecified hyperlipidemia 2019 told high age 22 on RX on and off in past Seizure (HCC) pt told absent seizure' during dental appointment no workup PAST SURGICAL HISTORY Procedure Laterality Date DELIVERY ONLY , low cervical COLONOSCOPY FLX DX W/COLLJ SPEC WHEN PFRMD 03/18/2021 ESOPHAGOGASTRODUODENOSCOPY TRANSORAL DIAGNOSTIC 06/15/2013 EGD ESOPHAGOGASTRODUODENOSCOPY TRANSORAL DIAGNOSTIC 03/18/2021 EYE SURGERY HX PAST SURGICAL HISTORY OF urethra stretching age 2 PAST SURGICAL HISTORY OF D&C PAST SURGICAL HISTORY OF wisdom teeth RPR UMBILICAL HERNIA < 5 YRS REDUCIBLE 2000 Hernia repair, umbilical <5yr SOCIAL HISTORY Social History Tobacco Use Smoking status: Never Smokeless tobacco: Never Vaping Use Vaping status: Never Used Substance Use Topics Alcohol use: Yes Comment: 1-2 wine or beer a week Drug use: No FAMILY HISTORY Problem Relation Age of Onset Hypertension Mother Diabetes Mother Stroke Mother 62 carotid disease other (CABG) Mother 67 Cancer Father Heart Father 64 PA coronary stent Heart Brother 37 PA 3 stents Hypertension Brother other (Hemophelia) Brother Uterine Fibroids Brother Hypertension Maternal Grandmother other (Myocardial infarction) Maternal Grandfather 54 Diabetes Maternal Grandfather Breast Cancer Paternal Grandmother other (Myocardidal infarction) Paternal Grandmother 80 3 stents other (brain bleeding) Paternal Grandmother other (cousins) Other Mi' age 41-42 Maternal ALLERGIES: ALLERGIES Allergen Reactions Levaquin [Levofloxa* Other: See Comments Numbness, palpitations Aleve [Naproxen Sod* Other: See Comments BP elevation Codeine GI Upset Heart pounding Epinephrine Other: See Comments Heart races. Heart palpitations. MEDICATIONS: Current Outpatient Medications Medication Sig metoprolol succinate ER (TOPROL XL) 50 mg 24 hr tablet Take 1 tablet by mouth once daily. rosuvastatin (CRESTOR) 20 mg tablet Take 1 tablet by mouth daily at bedtime. verapamil SR (CALAN SR) 120 mg CR tablet Take 1 tablet by mouth once daily. Cholecalciferol, Vitamin D3, (VITAMIN D-3) 50 mcg (2,000 unit) cap Take 2,000 Units by mouth once daily. famotidine (PEPCID) 20 mg tablet Take 1 tablet by mouth two times a day. cyclobenzaprine (FLEXERIL) 5 mg tablet Take 1 tablet by mouth daily at bedtime. Take 5 mg at bedtime. Gradually increase to three times a day as tolerated aspirin 81 mg cap Take 81 mg by mouth once daily. multivitamin (MULTIPLE VITAMINS ORAL) Take by mouth. No current facility-administered medications for this visit. REVIEW OF SYSTEMS: PHYSICAL EXAMINATION: LMP 02/07/2024 CARDIOVASCULAR MEDICINE TESTING: Last EKG Result Conclusion EKG Collected: 09/22/2024 7:20 PM (Final result) Impression: NORMAL SINUS RHYTHM NORMAL ECG No STEMI Confirmed by TEJAL ISABEL MD ([id number]) on 09/22/2024 7:29:15 PM IMPRESSION: Ms. Bergeron is a 54 year old female last seen 09/23 with SVT and atyp c/p, feeling better but w wtgain -> CUS, MIBI and early f/u for wt loss Palp x 20 yrs, often break w cough, neg Holter; normal TTE + fm h/o early CAD occ noctural or pleurtic c/p Raynaud's seroneg arthritis ? Fibromyalgia Hb 13.0 Cr 0.7 CRP <0.3 LDL 74 zio 01/18 4 short bursts of SVT CTA 50% mid LAD only TODAY Better diet, lost wt Planning to get TM Brings in picture of well demarcated hand redness which was transient and not related to the cold CUS mild MIBI normal LDL 76 Cr 0.7 BP 118/78 Pulse 69 Resp 14 Ht 152.4 cm (5') Wt 62.9 kg (138 lb 9.6 oz) LMP 02/07/2024 (Approximate) SpO2 98% BMI 27.07 kg/m pr wt 147 PLAN AND RECOMMENDATIONS: cont current plan CONTACT INFORMATION: [facility] in [facility]Bl[facility] Progress note* Result Encounter Note - Maryam Emmanuel APRN.CNS - 12/08/2024 4:28 PM EDT Benign finding, 1 year follow-up screening [facility]04-11-2025 Miscellaneous Notes* Result Encounter Note - Maryam Emmanuel APRN.CNS - 12/08/2024 4:28 PM EDT Benign finding, 1 year follow-up screening documented in this encounterBlanchard Valley [facility] System03-24-2025 History of Present illness Narrative* Victorino Bowie Mammo Tech - 11/20/2024 2:30 PM EDT Radiology Service Progress Note PATIENT NAME: Justine Bergeron DATE OF SERVICE: November 20, 2024 TIME: 3:16 PM PATIENT IDENTITY VERIFICATION COMPLETED USING TWO (2) IDENTIFIERS: Name and Date of confirmedby patient verbally. FALL SCREENING: Has the patient had 2 falls in the last year or 1 fall with injury or currently using an Ambulatory Assistive Device (Walker, Cane, Wheelchair, Crutches, etc.)? No PATIENT GENDER DATA: Assigned female at . status: : No status:NO. PATIENT RELEVANT IMPLANT DATA REVIEWED: Not Applicable PATIENT PRESENTS WITH AN IMPLANTABLE OR ATTACHED LICENSING WORKER: No RADIOLOGY DEPARTMENT: Mammography PERIPHERAL IV DATA: Not applicable SIGNED BY: Sweetie ePnny November 20, 2024 3:16 PM documented in this encounterBlanchard Valley [facility]03-24-2025 NoteHNO ID: [id number] Author: VICTORINO BOWIE Mammo Tech Service: ? Author Type: Convex Grinder Operator Type: Progress Notes Filed: 11/20/2024 15:17 Note Text: Radiology Service Progress Note PATIENT NAME: Justine Bergeron DATE OF SERVICE: November 20, 2024 TIME: 3:16 PM PATIENT IDENTITY VERIFICATION COMPLETED USING TWO (2) IDENTIFIERS: Name and Date of confirmed by patient verbally. FALL SCREENING: Has the patient had 2 falls in the last year or 1 fall with injury or currently using an Ambulatory Assistive Device (Walker, Cane, Wheelchair, Crutches, etc.)? No PATIENT GENDER DATA: Assigned female at . status: : No status: NO. PATIENT RELEVANT IMPLANT DATA REVIEWED: Not Applicable PATIENT PRESENTS WITH AN IMPLANTABLE OR ATTACHED LICENSING WORKER: No RADIOLOGY DEPARTMENT: Mammography PERIPHERAL IV DATA: Not applicable SIGNED BY: Abbi Pennyo Tech November 20, 2024 3:16 [facility]03-03-2025 Evaluation note* Diagnosis Onset Date Resolution Status Admit Date Atrophic vaginitis acute October 30, 2024 8:11am Encounter for routine gynecological examination noneactive October 30, 2024 8:11am Vaginal odor noneactive October 30 8:11am [facility] Work Phone: [phone]) 575-522302-05-2025 Telephone encounter Note* Telephone Encounter - Jing Sagastume - 10/04/2024 7:52 AM EST Call from pharmacy requesting refill. Requested Prescriptions Pending Prescriptions Disp Refills metoprolol succinate ER (TOPROL XL) 50 mg 24 hr tablet [Pharmacy Med Name: Metoprolol Succinate ER 50 MG Oral Tablet Extended Release 24 Hour] 30 tablet 0 Sig: Take 1 tablet by mouth once daily rosuvastatin (CRESTOR) 10 mg tablet [Pharmacy Med Name: Rosuvastatin Calcium 10 MG Oral Tablet] 30 tablet 0 Sig: TAKE 1 TABLET BY MOUTH ONCE DAILY AT BEDTIME verapamil SR (CALAN SR) 120 mg CR tablet [Pharmacy Med Name: Verapamil HCl ER 120 MG Oral Tablet Extended Release] 30 tablet 0 Sig: Take 1 tablet by mouth once daily Patient last seen 09/20/2024 Jing Sagastume [facility]02-05-2025 Miscellaneous Notes* Telephone Encounter - Jing Sagastume - 10/04/2024 7:52 AM EST Call from pharmacy requesting refill. Requested Prescriptions Pending Prescriptions Disp Refills metoprolol succinate ER (TOPROL XL) 50 mg 24 hr tablet [Pharmacy Med Name: Metoprolol Succinate ER 50 MG Oral Tablet Extended Release 24 Hour] 30 tablet 0 Sig: Take 1 tablet by mouth once daily rosuvastatin (CRESTOR) 10 mg tablet [Pharmacy Med Name: Rosuvastatin Calcium 10 MG Oral Tablet] 30 tablet 0 Sig: TAKE 1 TABLET BY MOUTH ONCE DAILY AT BEDTIME verapamil SR (CALAN SR) 120 mg CR tablet [Pharmacy Med Name: Verapamil HCl ER 120 MG Oral Tablet Extended Release] 30 tablet 0 Sig: Take 1 tablet by mouth once daily Patient last seen 09/20/2024 Jing Sagastume documented in this encounterBlanchard [facility]02-03-2025 History of Present illness Narrative* Ollie Wilcox, CT - 10/02/2024 8:00 AM EST RADIOLOGY SERVICE PROGRESS NOTE SERVICE DATE: 10/02/2024 SERVICE TIME: 8:29 AM PATIENT IDENTITY VERIFICATION COMPLETED USING TWO (2) STANDARD IDENTIFIERS: Name and Date of confirmed by patient verbally and Name and Date of confirmed by identification band FALL SCREENING: Has the patient had 2 falls in the last year or 1 fall with injury or currently using an Ambulatory Assistive Device (Walker, Cane, Wheelchair, Crutches, etc.)? No PATIENT GENDER DATA: .female : No ALLERGIES: Reviewed and unchanged MEDICATIONS REVIEWED: Not applicable PATIENT RELEVANT IMPLANT DATA REVIEWED: Not Applicable PATIENT PRESENTS WITH AN IMPLANTABLE OR ATTACHED LICENSING WORKER: No CREATININE: Creatinine Date Value Ref Range Status 09/22/2024 0.70 0.58 - 0.96 mg/dL Final 06/01/2024 0.75 0.58 - 0.96 mg/dL Final 02/19/2023 0.66 0.58 - 0.96 mg/dL Final Estimated Glomerular Filtration Rate Date Value Ref Range Status 09/22/2024 103 >=60 mL/min/1.73m Final Comment: Estimated Glomerular Filtration Rate (eGFR) is calculated using the 2020 CKD-EPI creatinine equation. This equation utilizes serum creatinine, sex, and age as parameters. The creatinine assay has traceable calibration to isotope dilution- mass spectrometry. Refer to KDIGO guidelines for clinical interpretation. In patients with unstable renal function, e.g. those with acute kidney injury, the eGFRmay not accurately reflect actual GFR. eGFR- Date Value Ref Range Status 08/21/2021 >60 Final P.O.C.T. RESULTS: N/A October 02, [address] PERFORMED: No IV SITE: Ambulatory: A peripheral IV was started in the Right antecubital site with a Angio cath: 22 gauge. POST EXAM PIV STATUS: Discontinued PROCEDURE TYPE: NM Stress: 14.1 mCi [id number]-[id number] was administered IV for Rest Imaging at 08:01 by MM. 34.5 mCi Gu24v-Uoeacxi was administered IV for Stress Imaging at 08:56 by . PATIENT DISCHARGED TO: Ambulatory patient, left [place] department area. Is this a therapy: No A Diagnostic radioactive procedure has taken place, with no further precautions necessary other than routine body substance precautions. More information regarding radiation safety can be found usingSpringpads link: [email or web address] 20Diagnostic%20Nuclear%20Medicine%[email or web address] SIGNATURE: DOLORES Etienne PATIENT NAME: Justine Bergeron DATE: October 02, 2024 TIME: 8:29 AM PAGER/CONTACT #: documented in this encounterBlanchard Valley [facility] System02-03-2025 NoteHNO ID: [id number] Author: OLLIE WILCOX CT Service: Nuclear Medicine Author Type: Technologist Type: Progress Notes Filed: 10/02/2024 08:57 Note Text: RADIOLOGY SERVICE PROGRESS NOTE SERVICE DATE: 10/02/2024 SERVICE TIME: 8:29 AM PATIENT IDENTITY VERIFICATION COMPLETED USING TWO (2) STANDARD IDENTIFIERS: Name and Date of confirmed by patient verbally and Name and Date of confirmed by identification band FALL SCREENING: Has the patient had 2 falls in the last year or 1 fall with injury or currently using an Ambulatory Assistive Device (Walker, Cane, Wheelchair, Crutches, etc.)? No PATIENT GENDER DATA: .female : No ALLERGIES: Reviewed and unchanged MEDICATIONS REVIEWED: Not applicable PATIENT RELEVANT IMPLANT DATA REVIEWED: Not Applicable PATIENT PRESENTS WITH AN IMPLANTABLE OR ATTACHED LICENSING WORKER: No CREATININE: Creatinine Date Value Ref Range Status 09/22/2024 0.70 0.58 - 0.96 mg/dL Final 06/01/2024 0.75 0.58 - 0.96 mg/dL Final 02/19/2023 0.66 0.58 - 0.96 mg/dL Final Estimated Glomerular Filtration Rate Date Value Ref Range Status 09/22/2024 103 >=60 mL/min/1.73m? Final Comment: Estimated Glomerular Filtration Rate (eGFR) is calculated using the 2020 CKD-EPI creatinine equation. This equation utilizes serum creatinine, sex, and age as parameters. The creatinine assay has traceable calibration to isotope dilution-mass spectrometry. Refer to KDIGO guidelines for clinical interpretation. In patients with unstable renal function, e.g. those with acute kidney injury, the eGFR may not accurately reflect actual GFR. eGFR- Date Value Ref Range Status 08/21/2021 >60 Final P.O.C.T. RESULTS: N/A October 02, [address] PERFORMED: No IV SITE: Ambulatory: A peripheral IV was started in the Right antecubital site with a Angio cath: 22 gauge. POST EXAM PIV STATUS: Discontinued PROCEDURE TYPE: NM Stress: 14.1 mCi [id number]-Mvnshje was administered IV for Rest Imaging at 08:01 by MM. 34.5 mCi Uf70k-Ydxrexv was administered IV for Stress Imaging at 08:56 by . PATIENT DISCHARGED TO: Ambulatory patient, left [place] department area. Is this a therapy: No A Diagnostic radioactive procedure has taken place, with no further precautions necessary other than routine body substance precautions. More information regarding radiation safety can be found using this link: [email or web address]%20Nuclear%20Medicine%[email or web address] SIGNATURE: DOLORES Etienne PATIENT NAME: Justine Bergeron DATE: October 02, 2024 TIME: 8:29 AM PAGER/CONTACT #:[facility] [id number] Telephone encounter Note * Telephone Encounter - Liberty Hubbard RN - 09/29/2024 12:18 PM EST Spoke to pt regarding reminder and instructions for stress test on Wednesday. This included where to check in, length of test and no caffeine for 24 hours prior to test. [facility]01-[facility] Miscellaneous Notes* Telephone Encounter - Liberty Hubbard RN - 09/29/2024 12:18 PM EST Spoke to pt regarding reminder and instructions for stress test on Wednesday. This included where to check in, length of test and no caffeine for 24 hours prior to test. documented in this encounterBlanchard Valley [facility] System01-24-2025 NoteHNO ID: [id number] Author: ODALIS FIGUEROA RT(R) Service: ? Author Type: Technologist Type: Progress Notes Filed: 09/22/2024 20:06 Note Text: Radiology Service Progress Note PATIENT NAME: Justine Bergeron DATE OF SERVICE: September 22, 2024 TIME: 8:06 PM PATIENT IDENTITY VERIFICATION COMPLETED USING TWO (2) IDENTIFIERS: Name and Date of confirmed by patient verbally and Name and Date of confirmed by identification band. FALL SCREENING: Has the patient had 2 falls in the last year or 1 fall with injury or currently using an Ambulatory Assistive Device (Walker, Cane, Wheelchair, Crutches, etc.)? Emergency Room Patient: Screened in ED PATIENT GENDER DATA: Assigned female at . status: : No status: NO. PATIENT RELEVANT IMPLANT DATA REVIEWED: Not Applicable PATIENT PRESENTS WITH AN IMPLANTABLE OR ATTACHED LICENSING WORKER: No RADIOLOGY DEPARTMENT: General X-ray: Exam(s) Completed: Chest X-Ray PERIPHERAL IV DATA: Not applicable SIGNED BY: RT Zeb(R) September 22, 2024 8:06 PMGreen Cross [id number] Telephone encounter Note* Telephone Encounter - Jing Sagastume - 09/22/2024 12:34 PM EST Call from patient with concern about the EKG results in MyChart. Patient can be reached at [phone] [facility]01-[facility] Miscellaneous Notes* Telephone Encounter - Jing Sagastume - 09/22/2024 12:34 PM EST Call from patient with concern about the EKG results in MyChart. Patient can be reached at [phone] documented in this encounterBlanchard Valley Health System01-24-2025 Telephone encounter Note * Telephone Encounter - Luis Ricks - 09/22/2024 9:35 AM EST Call from patient requesting refill. Requested Prescriptions Pending Prescriptions Disp Refills rosuvastatin (CRESTOR) 20 mg tablet 90 tablet 3 Sig: Take 1 tablet by mouth daily at bedtime. Patient last seen 09/20/24 Luis Velazquezoinerendira Ricks [facility]01-24-2025 Miscellaneous Notes* Telephone Encounter - Luis Ricks - 09/22/2024 9:35 AM EST Call from patient requesting refill. Requested Prescriptions Pending Prescriptions Disp Refills rosuvastatin (CRESTOR) 20 mg tablet 90 tablet 3 Sig: Take 1 tablet by mouth daily at bedtime. Patient last seen 09/20/24 Luis Ricks documented in this encounterBlanchard Valley Health System01-22-2025 NoteHNO ID: [id number] Author: JIMMY QUINTANA MD Service: ? Author Type: Physician Type: Progress Notes Filed: 09/20/2024 11:15 Note Text: Heart, Vascular and Thoracic [place] [facility] Department of Cardiovascular Medicine SECTION OF INTERVENTIONAL CARDIOLOGY OUTPATIENT VISIT DATE September 20, 2024 OUTPATIENT VISIT TYPE ESTABLISHED PRIMARY CARE PHYSICIAN: Domonique Guzman [address] [place] [address] REFERRING PHYSICIAN: Jimmy Quintana [address] [facility] [address] CHIEF COMPLAINT: No chief complaint on file. HISTORY OF PRESENT ILLNESS: Ms. Bergeron is a 54 year old female who presents today for follow-up visit . She denies . PAST CARDIAC HISTORY: See HPI PAST MEDICAL HISTORY Diagnosis Date Anemia treated with iron in past Arthritis Displacement of intervertebral disc, site unspecified, without myelopathy cervical and lower back Family history of early CAD Fibromyalgia Heart murmur Mammographic microcalcification Mitral valve disorders(424.0) MVP MVP (mitral valve prolapse) 11/06/2010 Near syncope Other and unspecified hyperlipidemia 2019 told high age 22 on RX on and off in past Seizure (HCC) pt told absent seizure' during dental appointment no workup PAST SURGICAL HISTORY Procedure Laterality Date DELIVERY ONLY , low cervical COLONOSCOPY FLX DX W/COLLJ SPEC WHEN PFRMD 03/18/2021 ESOPHAGOGASTRODUODENOSCOPY TRANSORAL DIAGNOSTIC 06/15/2013 EGD ESOPHAGOGASTRODUODENOSCOPY TRANSORAL DIAGNOSTIC 03/18/2021 EYE SURGERY HX PAST SURGICAL HISTORY OF urethra stretching age 2 PAST SURGICAL HISTORY OF DANDC PAST SURGICAL HISTORY OF wisdom teeth RPR UMBILICAL HERNIA < 5 YRS REDUCIBLE 2001 Hernia repair, umbilical <5yr SOCIAL HISTORY Social History Tobacco Use Smoking status: Never Smokeless tobacco: Never Vaping Use Vaping status: Never Used Substance Use Topics Alcohol use: Yes Comment: 1-2 wine or beer a week Drug use: No FAMILY HISTORY Problem Relation Age of Onset Hypertension Mother Diabetes Mother Stroke Mother 62 carotid disease other (CABG) Mother 67 Cancer Father Heart Father 64 PA coronary stent Heart Brother 37 PA 3 stents Hypertension Brother other (Hemophelia) Brother Uterine Fibroids Brother Hypertension Maternal Grandmother other (Myocardial infarction) Maternal Grandfather 54 Diabetes Maternal Grandfather Breast Cancer Paternal Grandmother other (Myocardidal infarction) Paternal Grandmother 80 3 stents other (brain bleeding) Paternal Grandmother other (cousins) Other Mi' age 41-42 Maternal ALLERGIES: ALLERGIES Allergen Reactions Levaquin [Levofloxa* Other: See Comments Numbness, palpitations Aleve [Naproxen Sod* Other: See Comments BP elevation Codeine GI Upset Heart pounding Epinephrine Other: See Comments Heart races. Heart palpitations. MEDICATIONS: Current Outpatient Medications Medication Sig famotidine (PEPCID) 20 mg tablet Take 1 tablet by mouth two times a day. rosuvastatin (CRESTOR) 10 mg tablet TAKE 1 TABLET BY MOUTH ONCE DAILY AT BEDTIME verapamil SR (CALAN SR) 120 mg CR tablet Take 1 tablet by mouth once daily metoprolol succinate ER (TOPROL XL) 50 mg 24 hr tablet Take 1 tablet by mouth once daily cyclobenzaprine (FLEXERIL) 5 mg tablet Take 1 tablet by mouth daily at bedtime. Take 5 mg at bedtime. Gradually increase to three times a day as tolerated aspirin 81 mg cap Take 81 mg by mouth once daily. multivitamin (MULTIPLE VITAMINS ORAL) Take by mouth. No current facility-administered medications for this visit. REVIEW OF SYSTEMS: PHYSICAL EXAMINATION: LMP 02/07/2024 CARDIOVASCULAR MEDICINE TESTING: Last EKG Result Conclusion ECG COMPLETE Collected: 09/20/2024 10:05 AM (Preliminary result) Impression: NORMAL SINUS RHYTHM CANNOT EXCLUDE ANTERIOR MYOCARDIAL INFARCTION , AGE UNDETERMINED ABNORMAL ECG IMPRESSION: Ms. Bergeron is a 54 year old female last seen 10/22 with SVT and atyp c/p Palp x 20 yrs, often break w cough, neg Holter; normal TTE + fm h/o early CAD occ noctural or pleurtic c/p Raynaud's seroneg arthritis ? Fibromyalgia Hb 13.0 Cr 0.7 CRP <0.3 LDL 74 zio 01/18 4 short bursts of SVT CTA 50% mid LAD only TODAY Fewer palp, short but daily, Raynaud's better too Lax on diet, EtOH; has gained ~20 lbs < 1 min c/p -> neck and left shoulder, unrelated to exertion Doesn't exercise d/t fear of palp and PA Whooshing in left neck ECG normal x mild PRWP 06/22 labs Hb 12.3 Cr 0.8 LDL 85 asa toprol crestor 10 verap pr wt 141 BP 118/71 Pulse 64 Resp 14 Ht 152.4 cm (5') Wt 66.7 kg (147 lb) LMP 02/07/2024 (Approximate) SpO2 100% BMI 28.71 kg/m? HEENT: No bruits or evident JVD Lungs: Clear to auscultation Cor: RR 1/6 LAMONT Extremities: good pulses, tr edema Neuro: (more content not included)...[facility]01-22-2025 History of Present illness Narrative* Jimmy Quintana MD - 09/20/2024 10:29 AM EST Images from the original note were not included. [facility] V[facility] [place] [facility] Department of Cardiovascular Medicine SECTION OF INTERVENTIONAL CARDIOLOGY OUTPATIENT VISIT DATE September 20, 2024 OUTPATIENT VISIT TYPE ESTABLISHED PRIMARY CARE PHYSICIAN: Domonique Gumzan [address] [place] [address] REFERRING PHYSICIAN: Jimmy Quintana [address] [facility] [id number] CHIEF COMPLAINT: No chief complaint on file. HISTORY OF PRESENT ILLNESS: Ms. Bergeron is a 54 year old female who presents today for follow-up visit . She denies . PAST CARDIAC HISTORY: See HPI PAST MEDICAL HISTORY Diagnosis Date Anemia treated with iron in past Arthritis Displacement of intervertebral disc, site unspecified, without myelopathy cervical and lower back Family history of early CAD Fibromyalgia Heart murmur Mammographic microcalcification Mitral valve disorders(424.0) MVP MVP (mitral valve prolapse) 11/06/2010 Near syncope Other and unspecified hyperlipidemia 2019 told high age 22 on RX on and off in past Seizure (HCC) pt told absent seizure' during dental appointment no workup PAST SURGICAL HISTORY Procedure Laterality Date DELIVERY ONLY , low cervical COLONOSCOPY FLX DX W/COLLJ SPEC WHEN PFRMD 03/18/2021 ESOPHAGOGASTRODUODENOSCOPY TRANSORAL DIAGNOSTIC 06/15/2013 EGD ESOPHAGOGASTRODUODENOSCOPY TRANSORAL DIAGNOSTIC 03/18/2021 EYE SURGERY HX PAST SURGICAL HISTORY OF urethra stretching age 2 PAST SURGICAL HISTORY OF D&C PAST SURGICAL HISTORY OF wisdom teeth RPR UMBILICAL HERNIA < 5 YRS REDUCIBLE 2001 Hernia repair, umbilical <5yr SOCIAL HISTORY Social History Tobacco Use Smoking status: Never Smokeless tobacco: Never Vaping Use Vaping status: Never Used Substance Use Topics Alcohol use: Yes Comment: 1-2 wine or beer a week Drug use: No FAMILY HISTORY Problem Relation Age of Onset Hypertension Mother Diabetes Mother Stroke Mother 62 carotid disease other (CABG) Mother 67 Cancer Father Heart Father 64 PA coronary stent Heart Brother 37 PA 3 stents Hypertension Brother other (Hemophelia) Brother Uterine Fibroids Brother Hypertension Maternal Grandmother other (Myocardial infarction) Maternal Grandfather 54 Diabetes Maternal Grandfather Breast Cancer Paternal Grandmother other (Myocardidal infarction) Paternal Grandmother 80 3 stents other (brain bleeding) Paternal Grandmother other (cousins) Other Mi' age 41-42 Maternal ALLERGIES: ALLERGIES Allergen Reactions Levaquin [Levofloxa* Other: See Comments Numbness, palpitations Aleve [Naproxen Sod* Other: See Comments BP elevation Codeine GI Upset Heart pounding Epinephrine Other: See Comments Heart races. Heart palpitations. MEDICATIONS: Current Outpatient Medications Medication Sig famotidine (PEPCID) 20 mg tablet Take 1 tablet by mouth two times a day. rosuvastatin (CRESTOR) 10 mg tablet TAKE 1 TABLET BY MOUTH ONCE DAILY AT BEDTIME verapamil SR (CALAN SR) 120 mg CR tablet Take 1 tablet by mouth once daily metoprolol succinate ER (TOPROL XL) 50 mg 24 hr tablet Take 1 tablet by mouth once daily cyclobenzaprine (FLEXERIL) 5 mg tablet Take 1 tablet by mouth daily at bedtime. Take 5 mg at bedtime. Gradually increase to three times a day as tolerated aspirin 81 mg cap Take 81 mg by mouth once daily. multivitamin (MULTIPLE VITAMINS ORAL) Take by mouth. No current facility-administered medications for this visit. REVIEW OF SYSTEMS: PHYSICAL EXAMINATION: LMP 02/07/2024 CARDIOVASCULAR MEDICINE TESTING: Last EKG Result Conclusion ECG COMPLETE Collected: 09/20/2024 10:05 AM (Preliminary result) Impression: NORMAL SINUS RHYTHM CANNOT EXCLUDE ANTERIOR MYOCARDIAL INFARCTION , AGE UNDETERMINED ABNORMAL ECG IMPRESSION: Ms. Bergeron is a 54 year old female last seen 10/22 with SVT and atyp c/p Palp x 20 yrs, often break w cough, neg Holter; normal TTE + fm h/o early CAD occ noctural or pleurtic c/p Raynaud's seroneg arthritis ? Fibromyalgia Hb 13.0 Cr 0.7 CRP <0.3 LDL 74 zio 01/18 4 short bursts of SVT CTA 50% mid LAD only TODAY Fewer palp, short but daily, Raynaud's better too Lax on diet, EtOH; has gained ~20 lbs < 1 min c/p -> neck and left shoulder, unrelated to exertion Doesn't exercise d/t fear of palp and PA Whooshing in left neck ECG normal x mild PRWP 06/22 labs Hb 12.3 Cr 0.8 LDL 85 asa toprol crestor 10 verap pr wt 141 BP 118/71 Pulse 64 Resp 14 Ht 152.4 cm (5') Wt 66.7 kg (147 lb) LMP 02/07/2024 (Approximate) SpO2 100% BMI 28.71 kg/m HEENT: No bruits or evident JVD Lungs: Clear to auscultation Cor: RR 1/6 LAMONT Extremities: good pulses, tr edema Neuro: grossly intact PLAN AND RECOMMENDATIONS: CUS, MIBI incr statin at least until losses wt exercise at least 15 min day (offered to incr calan to decr risk of palp but she declines) target =>5 lbs in 3 mos CONTACT INFORMATION: [facility] Telephone encounter Note * Telephone Encounter - Domonique Guzman MD - 09/15/2024 1:13 PM EST The following approved medication requests have been transmitted electronically. Requested Prescriptions Signed Prescriptions Disp Refills famotidine (PEPCID) 20 mg tablet 180 tablet 3 Sig: Take 1 tablet by mouth two times a day. Authorizing Provider: DOMONIQUE GUZMAN MD [facility]01-17-2025 Miscellaneous Notes* Telephone Encounter - Domonique Guzman MD - 09/15/2024 1:13 PM EST The following approved medication requests have been transmitted electronically. Requested Prescriptions Signed Prescriptions Disp Refills famotidine (PEPCID) 20 mg tablet 180 tablet 3 Sig: Take 1 tablet by mouth two times a day. Authorizing Provider: DOMONIQUE GUZMAN MD * Telephone Encounter - Constance Mederos LPN - 09/15/2024 7:58 AM EST The patient has been identified by name and date of : Yes Caregiver verified no other encounters exist for this prescription request: Yes Caregiver confirmed with patient/requestor that no other refills are due, in the near future, with this provider at this time: Yes The last office visit in the department: 05/31/2024 Does the patient have a future office visit with this provider/department: Yes 06/15/2025 Requested Prescriptions Pending Prescriptions Disp Refills famotidine (PEPCID) 20 mg tablet 180 tablet 3 Sig: Take 1 tablet by mouth two times a day. Constance Mederos LPN September 15, 2024 7:58 AM documented in this encounterBlanch[facility]01-17-2025 NoteHNO ID: [id number] Author: NOHEMY HILL DO Service: ? Author Type: Physician Type: Progress Notes Filed: 09/15/2024 12:05 Note Text: Established Patient Visit Last Visit Date: 06/06/24 CC: Lesion of concern HPI: 54 year old female. Today's concerns are: 1) Lesion of concern Location: R lower leg Duration: Noticed on wednesday Symptoms: states it has come and gone before Current treatment: none Past treatment: none Past Derm History: Personal history of melanoma: No Family history of melanoma (1st degree relative): No, great uncle with melanoma History of atypical nevi: No Personal history of NMSC: Yes: BCC right mandible Mohs 07/12/2023 ROS: Denies fevers, weight loss, night sweats, joint pain, abdominal pain, headaches, cough. Skin as above. Physical Exam: Gen: AANDOx3, well appearing Skin exam performed including legs. Exam with noted findings of: -Firm hyperpigmented nodule with positive dimple sign of left anterior lower leg Assessment/Plan: ASSESSMENT/PLAN: 1. Dermatofibroma - ICD9: 216.9, ICD10: D23.9 - Explanation of these lesions were dicussed. Benign reassurance was given. RTC November for FBSE. The patient is seen and examined by Dr. Hill and the following reflects his/her service. Scribed by Arlene Preston RN. I agree with the Chief Complaint, ROS, and Past Histories independently gathered by the clinical retail support associate and the remaining scribed note accurately describes my personal service to the patient. Nohemy Hill, [facility]01-17-2025 History of Present illness Narrative* Nohemy Hill DO - 09/15/2024 11:08 AM EST Established Patient Visit Last Visit Date: 06/06/24 CC: Lesion of concern HPI: 54 year old female. Today's concerns are: 1) Lesion of concern Location: R lower leg Duration: Noticed on wednesday Symptoms: states it has come and gone before Current treatment: none Past treatment: none Past Derm History: Personal history of melanoma: No Family history of melanoma (1st degree relative): No, great uncle with melanoma History of atypical nevi: No Personal history of NMSC: Yes: BCC right mandible Mohs 07/12/2023 ROS: Denies fevers, weight loss, night sweats, joint pain, abdominal pain, headaches, cough. Skin as above. Physical Exam: Gen: A&Ox3, well appearing Skin exam performed including legs. Exam with noted findings of: -Firm hyperpigmented nodule with positive dimple sign of left anterior lower leg Assessment/Plan: ASSESSMENT/PLAN: 1. Dermatofibroma - ICD9: 216.9, ICD10: D23.9 - Explanation of these lesions were dicussed. Benign reassurance was given. RTC November for FBSE. The patient is seen and examined by Dr. Hill and the following reflects his/her service. Scribed by Arlene Preston RN. I agree with the Chief Complaint, ROS, and Past Histories independently gathered by the clinical retail support associate and the remaining scribed note accurately describes my personal service to the patient. Nohemy Hill DO documented in this encounterBl[facility]01-17-2025 Telephone encounter Note * Telephone Encounter - Constance Mederos LPN - 09/15/2024 7:58 AM EST The patient has been identified by name and date of : Yes Caregiver verified no other encounters exist for this prescription request: Yes Caregiver confirmed with patient/requestor that no other refills are due, in the near future, with this provider at this time: Yes The last office visit in the department: 05/31/2024 Does the patient have a future office visit with this provider/department: Yes 06/15/2025 Requested Prescriptions Pending Prescriptions Disp Refills famotidine (PEPCID) 20 mg tablet 180 tablet 3 Sig: Take 1 tablet by mouth two times a day. Constance Mederos LPN September 15, 2024 7:58 AM [facility]01-10-2025 Telephone encounter Note* Telephone Encounter - Jing Sagastume - 09/08/2024 7:53 AM EST Call from pharmacy requesting refill. Requested Prescriptions Pending Prescriptions Disp Refills rosuvastatin (CRESTOR) 10 mg tablet [Pharmacy Med Name: Rosuvastatin Calcium 10 MG Oral Tablet] 30 tablet 0 Sig: TAKE 1 TABLET BY MOUTH ONCE DAILY AT BEDTIME verapamil SR (CALAN SR) 120 mg CR tablet [Pharmacy Med Name: Verapamil HCl ER 120 MG Oral Tablet Extended Release] 30 tablet 0 Sig: Take 1 tablet by mouth once daily Patient last seen 09/02/2023 Reynaldo Nevarez, 10/14/[address] Quintana Changed authorizing to Dr. Quintana Patient scheduled for follow up with Dr. Quintana 09/20/2024 Jing Sagastume [facility]01-10-2025 Miscellaneous Notes* Telephone Encounter - Jing Sagastume - 09/08/2024 7:53 AM EST Call from pharmacy requesting refill. Requested Prescriptions Pending Prescriptions Disp Refills rosuvastatin (CRESTOR) 10 mg tablet [Pharmacy Med Name: Rosuvastatin Calcium 10 MG Oral Tablet] 30 tablet 0 Sig: TAKE 1 TABLET BY MOUTH ONCE DAILY AT BEDTIME verapamil SR (CALAN SR) 120 mg CR tablet [Pharmacy Med Name: Verapamil HCl ER 120 MG Oral Tablet Extended Release] 30 tablet 0 Sig: Take 1 tablet by mouth once daily Patient last seen 09/02/2023 Reynaldo Nevarez, 10/14/[address] Quintana Changed authorizing to Dr. Quintana Patient scheduled for follow up with Dr. Quintana 09/20/2024 Jing Sagastume documented in this encounterBlanchard Valley [facility]01-09-2025 Telephone encounter Note * Telephone Encounter - Luis Rickse - 09/07/2024 8:37 AM EST Call from pharmacy requesting refill. Requested Prescriptions Pending Prescriptions Disp Refills metoprolol succinate ER (TOPROL XL) 50 mg 24 hr tablet [Pharmacy Med Name: Metoprolol Succinate ER 50 MG Oral Tablet Extended Release 24 Hour] 30 tablet 0 Sig: Take 1 tablet by mouth once daily Patient last seen 09/02/23; next appt 09/20/24 Luis Ricks [facility]01-09-2025 Miscellaneous Notes* Telephone Encounter - Luis Ricks - 09/07/2024 8:37 AM EST Call from pharmacy requesting refill. Requested Prescriptions Pending Prescriptions Disp Refills metoprolol succinate ER (TOPROL XL) 50 mg 24 hr tablet [Pharmacy Med Name: Metoprolol Succinate ER 50 MG Oral Tablet Extended Release 24 Hour] 30 tablet 0 Sig: Take 1 tablet by mouth once daily Patient last seen 09/02/23; next appt 09/20/24 Luis Ricks documented in this encounterBlanchard [facility]01-07-2025 Telephone encounter Note * Telephone Encounter - Luis Ricks - 09/05/2024 3:12 PM EST Pt called to have lab orders submitted for her upcoming appt on 09/19/24 Pt will have labs completed at [facility] once she sees the orders. [facility]01-07-[facility] Miscellaneous Notes* Telephone Encounter - Luis Ricks - 09/05/2024 3:12 PM EST Pt called to have lab orders submitted for her upcoming appt on 09/19/24 Pt will have labs completed at [facility] once she sees the orders. documented in this encounterBlanchard Valley Health System12-26-2024 Telephone encounter Note * Telephone Encounter - Luis Ricks - 08/24/2024 11:12 AM EST Office called to inform pt the doctor will not be in the office on 09/04. Rescheduling appt to 09/20 at 11:00; left message. Office sent MyChart message too. Emailed desk F14 [facility]12-[facility] Miscellaneous Notes* Telephone Encounter - Luis Ricks - 08/24/2024 11:12 AM EST Office called to inform pt the doctor will not be in the office on 09/04. Rescheduling appt to 09/20 at 11:00; left message. Office sent MyChart message too. Emailed desk F14 documented in this encounterBlanchard Valley Health System10-08-2024 History of Present illness Narrative* Carlton Pabon MD - 06/06/2024 2:40 PM EDT Established patient Chief Complaint: skin check History of Present Ilness: Justine Bergeron is a 53 year old female Patient is here for: 1) rash- itchy Current treatment none -thought she had a few bug bites Located on the neck Using retinol on the neck and face 2) lesion on left mid back - gets irritated with bra strap Pertinent Past Medical History: History of skin cancer or atypical nevi Yes BCC right anterior mandible s/p Mohs 07/12/2023 Specialty Problems None Pertinent Family medical history: History of melanoma Yes maternal great uncle with melanoma Review of Systems: Constitutional: Denies fever, chills, night sweats, unintentional weight loss. Skin per HPI. No other new/concerning skin growth. Physical Exam: General: well appearing, of stated age, in no acute distress Neurology: alert and oriented times three Psychiatry: in a happy mood Skin: Guardado skin type: II Skin exam performed of face, scalp, ears, eyelids, lips, neck, chest, abdomen, back, bilateral upper extremities, hands, fingers, fingernails, bilateral lower extremities, feet, toes, toenails: Skin exam normal with the exception of: -Yañez macules in sun exposed areas - Involving trunk and extremities are numerous yañez, stuck-on appearing keratotic papules - Scattered on the trunk and extremities are numerous pigmented macules and papules with reassuringclinical and dermatoscopic features - Scattered on torso are numerous red, round discrete vascular papules -light brown waxy papule on the scalp -left upper back: skin colored pedunculated papule -well healed scar on right cheek with no signs of recurrence Assessment and Plan: #Contact dermatitis - Suspect 2/2 OTC retinol - Recommend to pause retinol for a few days, ok to continue when itching stopped #Hx of NMSC - Scar well healed without evidence of recurrence - Recommend FBSE every 6 months #Clinically benign-appearing skin lesions including: lentigines, siegel angiomas, multiple benign nevi, seborrheic keratoses, acrochordon -Reassurance provided regarding the benign nature of these lesions -Recommend monthly self skin exam. Return for new, changing or otherwise concerning skin lesions. -Recommend daily sun protection with broad-spectrum sunscreen SPF 30+, avoidance of sun during peakhours, and sun protective clothing. Return to clinic 6 months for FBSE or sooner if something concerning arises. The documentation for this note was completed by DAYNE Mccarthy acting as scribe for Carlton Pabon MD. June 06, 2024 2:16 PM. I agree with the Chief Complaint, ROS, and Past Histories independently gathered by the clinical retail support associate and the remaining scribed note accurately describes my personal service to the patient. Carlton Pabon MD June 06, 2024 Medical Decision Making: Problems: Low: 2+ self-limited or minor problems and Stable chronic illness Medical Decision Making Level: 2 - Straightforward documented in this encounterBlanchard Valley Health System10-08-2024 NoteHNO ID: [id number] Author: CARLTON PABON MD Service: ? Author Type: Physician Type: Progress Notes Filed: 06/06/2024 16:01 Note Text: Established patient Chief Complaint: skin check History of Present Ilness: Justine Bergeron is a 53 year old female Patient is here for: 1) rash- itchy Current treatment none -thought she had a few bug bites Located on the neck Using retinol on the neck and face 2) lesion on left mid back - gets irritated with bra strap Pertinent Past Medical History: History of skin cancer or atypical nevi Yes BCC right anterior mandible s/p Mohs 07/12/2023 Specialty Problems None Pertinent Family medical history: History of melanoma Yes maternal great uncle with melanoma Review of Systems: Constitutional: Denies fever, chills, night sweats, unintentional weight loss. Skin per HPI. No other new/concerning skin growth. Physical Exam: General: well appearing, of stated age, in no acute distress Neurology: alert and oriented times three Psychiatry: in a happy mood Skin: Guardado skin type: II Skin exam performed of face, scalp, ears, eyelids, lips, neck, chest, abdomen, back, bilateral upper extremities, hands, fingers, fingernails, bilateral lower extremities, feet, toes, toenails: Skin exam normal with the exception of: -Yañez macules in sun exposed areas - Involving trunk and extremities are numerous yañez, stuck-on appearing keratotic papules - Scattered on the trunk and extremities are numerous pigmented macules and papules with reassuring clinical and dermatoscopic features - Scattered on torso are numerous red, round discrete vascular papules -light brown waxy papule on the scalp -left upper back: skin colored pedunculated papule -well healed scar on right cheek with no signs of recurrence Assessment and Plan: #Contact dermatitis - Suspect 2/2 OTC retinol - Recommend to pause retinol for a few days, ok to continue when itching stopped #Hx of NMSC - Scar well healed without evidence of recurrence - Recommend FBSE every 6 months #Clinically benign-appearing skin lesions including: lentigines, siegel angiomas, multiple benign nevi, seborrheic keratoses, acrochordon -Reassurance provided regarding the benign nature of these lesions -Recommend monthly self skin exam. Return for new, changing or otherwise concerning skin lesions. -Recommend daily sun protection with broad-spectrum sunscreen SPF 30+, avoidance of sun during peak hours, and sun protective clothing. Return to clinic 6 months for FBSE or sooner if something concerning arises. The documentation for this note was completed by DAYNE Mccarthy acting as scribe for Carlton Pabon MD. June 06, 2024 2:16 PM. I agree with the Chief Complaint, ROS, and Past Histories independently gathered by the clinical retail support associate and the remaining scribed note accurately describes my personal service to the patient. Carlton Pabon MD June 06, 2024 Medical Decision Making: Problems: Low: 2+ self-limited or minor problems and Stable chronic illness Medical Decision Making Level: 2 - Stra[facility]forwardJoint [facility] Instructions* Patient Instructions* Christianne Olsen OCCA - 06/06/2024 2:17 PM EDT GENERAL SUN SAFETY Thank you for allowing me to examine you for signs of skin cancer today. We had an opportunity to discuss my findings and any treatments I recommended. I believe that there are several steps that a person can do to help prevent skin cancers and to detect them at an early, treatable stage: 1. I highly recommend that once a month you perform your own complete skin check looking for changing or unusual spots. Use a wall-mounted mirror and a hand mirror to assist in seeing body areas thatare difficult to see otherwise. If you have a family member that can assist, this is often helpful.Additional information can be obtained at: www.skincancer.org/aalo-ccloxj-zroptltwipy/early-detection 2. In many cases, skin cancer can be prevented. The best way to protect yourself is to avoid too much sun and sunburns. Health care providers believe that ultraviolet rays (UV rays) from the sun damage the skin and over time lead to skin cancer. Here are ways to protect yourself: -Don't spend long periods of time in direct sunlight. -Wear hats with brims to protect your face and ears. -Wear long-sleeved shirts and pants to protect your arms and legs. -Use broad spectrum sunscreens with a SPF (skin protection factor) of 30 or higher that protect against burning and tanning rays. Apply the lotion 30 minutes before you go outside. (Broad-spectrum sunscreens protect against UV-B and UV-A rays.) -Wear sunglasses to protect your eyes. -Use a lip balm with sunscreen. -Avoid the sun between 10am and 4pm. -Show any changing mole to your health care provider. documented in this encounterBlanchard Valley Health System10-02-2024 NoteHNO ID: [id number] Author: SYDNEE SUMNER APRN.KOSHER DIETARY SERVICE MANAGER Service: ? Author Type: Nurse Practitioner Type: Progress Notes Filed: 05/31/2024 15:17 Note Text: CHIEF COMPLAINT: Patient presents with: Physical HISTORY: Justine Bergeron is a 53 year old female who presents 05/31/2024 for her Yearly Physical Exam. They are here today for a wellness exam. Generally feels well and does not have complaints. Is able to complete ADL's with independence. Occasional swelling in legs at the end of the day. Not big into salt. Kiki-menopausal right now. Noticing being more forgetful. Having some weight gain. Still some pain in her back on occasion. 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 Past Medical History: PAST MEDICAL HISTORY Diagnosis Date Anemia treated with iron in past Arthritis Displacement of intervertebral disc, site unspecified, without myelopathy cervical and lower back Family history of early CAD Fibromyalgia Heart murmur Mammographic microcalcification Mitral valve disorders(424.0) MVP MVP (mitral valve prolapse) 11/06/2010 Near syncope Other and unspecified hyperlipidemia 2019 told high age 22 on RX on and off in past Seizure (HCC) pt told absent seizure' during dental appointment no workup Family Medical History: FAMILY HISTORY Problem Relation Age of Onset Hypertension Mother Diabetes Mother Stroke Mother 62 carotid disease other (CABG) Mother 67 Cancer Father Heart Father 64 PA coronary stent Heart Brother 37 PA 3 stents Hypertension Brother other (Hemophelia) Brother Uterine Fibroids Brother Hypertension Maternal Grandmother other (Myocardial infarction) Maternal Grandfather 54 Diabetes Maternal Grandfather Breast Cancer Paternal Grandmother other (Myocardidal infarction) Paternal Grandmother 80 3 stents other (brain bleeding) Paternal Grandmother other (cousins) Other Mi' age 41-42 Maternal Social History: Social History Tobacco Use Smoking status: Never Smokeless tobacco: Never Vaping Use Vaping status: Never Used Substance Use Topics Alcohol use: Yes Comment: 1-2 wine or beer a week Drug use: No Allergies: ALLERGIES Allergen Reactions Levaquin [Levofloxa* Other: See Comments Numbness, palpitations Aleve [Naproxen Sod* Other: See Comments BP elevation Codeine GI Upset Heart pounding Epinephrine Other: See Comments Heart races. Heart palpitations. Medications: Current Outpatient Medications Medication Sig metoprolol succinate ER (TOPROL XL) 50 mg 24 hr tablet Take 1 tablet by mouth once daily. rosuvastatin (CRESTOR) 10 mg tablet Take 1 tablet by mouth daily at bedtime. verapamil SR (CALAN SR) 120 mg CR tablet Take 1 tablet by mouth once daily. famotidine (PEPCID) 20 mg tablet Take 1 tablet by mouth twice daily. aspirin 81 mg cap Take 81 mg by mouth once daily. multivitamin (MULTIPLE VITAMINS ORAL) Take by mouth. cyclobenzaprine (FLEXERIL) 5 mg tablet Take 1 tablet by mouth daily at bedtime. Take 5 mg at bedtime. Gradually increase to three times a day as tolerated No current facility-administered medications for this visit. Chronic Problem List: ACTIVE PROBLEM LIST Lumbar Disc Herniation - 03/20/2020 Annular Tear of Lumbar Disc - 03/20/2020 Raynaud's Phenomenon Without Gangrene - 05/31/2017 Hyperlipidemia - 10/14/2015 Atypical Chest Pain - 10/14/2015 History of Myositis - 01/08/2015 Lumbago - 01/08/2015 Family History of Ischemic Heart Disease - 04/27/2014 Cervicalgia - 12/09/2011 Review of Systems Review of Systems Constitutional: Negative. Respiratory: Negative. Cardiovascular: Negative. OBJECTIVE BP 115/78 Pulse 70 Ht 4' 11 (1.50m) Wt 147 lb 4.3 oz (66.8kg) LMP 02/07/2024 BMI 29.73 kg/(m2). Physical Exam Vitals and nursing note reviewed. Constitutional: General: She is awake. She is not in acute distress. Appearance: Normal appearance. She is well-developed and well-groomed. She is not ill-appearing, toxic-appearing or diaphoretic. HENT: Head: Normocephalic. Right Ear: External ear normal. Left Ear: External ear normal. Nose: Nose normal. Eyes: General: Vision grossly intact. Conjunctiva/sclera: Conjunctivae normal. Pupils: Pupils are equal, round, and reactive to light. Neck: Vascular: No JVD. Trachea: Trachea normal. Cardiovascular: Rate and Rhythm: Normal rate and regular rhythm. Pulses: Normal pulses. Heart sounds: Normal heart sounds. No murmur heard. Pulmonary: Effort: Pulmonary effort is normal. No accessory muscle usage, prolonged (more content not included)...[facility]10-02-[facility]24 History of Present illness Narrative* Sydnee Sumner APRN.KOSHER DIETARY SERVICE MANAGER - 05/31/2024 2:42 PM EDT CHIEF COMPLAINT: Patient presents with: Physical HISTORY: Justine Bergeron is a 53 year old female who presents 05/31/2024 for her Yearly Physical Exam. They are here today for a wellness exam. Generally feels well and does not have complaints. Is able tocomplete ADL's with independence. Occasional swelling in legs at the end of the day. Not big into salt. Kiki-menopausal right now. Noticing being more forgetful. Having some weight gain. Still some pain in her back on occasion. 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 Past Medical History: PAST MEDICAL HISTORY Diagnosis Date Anemia treated with iron in past Arthritis Displacement of intervertebral disc, site unspecified, without myelopathy cervical and lower back Family history of early CAD Fibromyalgia Heart murmur Mammographic microcalcification Mitral valve disorders(424.0) MVP MVP (mitral valve prolapse) 11/06/2010 Near syncope Other and unspecified hyperlipidemia 2020 told high age 22 on RX on and off in past Seizure (HCC) pt told absent seizure' during dental appointment no workup Family Medical History: FAMILY HISTORY Problem Relation Age of Onset Hypertension Mother Diabetes Mother Stroke Mother 62 carotid disease other (CABG) Mother 67 Cancer Father Heart Father 64 PA coronary stent Heart Brother 37 PA 3 stents Hypertension Brother other (Hemophelia) Brother Uterine Fibroids Brother Hypertension Maternal Grandmother other (Myocardial infarction) Maternal Grandfather 54 Diabetes Maternal Grandfather Breast Cancer Paternal Grandmother other (Myocardidal infarction) Paternal Grandmother 80 3 stents other (brain bleeding) Paternal Grandmother other (cousins) Other Mi' age 41-42 Maternal Social History: Social History Tobacco Use Smoking status: Never Smokeless tobacco: Never Vaping Use Vaping status: Never Used Substance Use Topics Alcohol use: Yes Comment: 1-2 wine or beer a week Drug use: No Allergies: ALLERGIES Allergen Reactions Levaquin [Levofloxa* Other: See Comments Numbness, palpitations Aleve [Naproxen Sod* Other: See Comments BP elevation Codeine GI Upset Heart pounding Epinephrine Other: See Comments Heart races. Heart palpitations. Medications: Current Outpatient Medications Medication Sig metoprolol succinate ER (TOPROL XL) 50 mg 24 hr tablet Take 1 tablet by mouth once daily. rosuvastatin (CRESTOR) 10 mg tablet Take 1 tablet by mouth daily at bedtime. verapamil SR (CALAN SR) 120 mg CR tablet Take 1 tablet by mouth once daily. famotidine (PEPCID) 20 mg tablet Take 1 tablet by mouth twice daily. aspirin 81 mg cap Take 81 mg by mouth once daily. multivitamin (MULTIPLE VITAMINS ORAL) Take by mouth. cyclobenzaprine (FLEXERIL) 5 mg tablet Take 1 tablet by mouth daily at bedtime. Take 5 mg at bedtime. Gradually increase to three times a day as tolerated No current facility-administered medications for this visit. Chronic Problem List: ACTIVE PROBLEM LIST Lumbar Disc Herniation - 03/20/2020 Annular Tear of Lumbar Disc - 03/20/2020 Raynaud's Phenomenon Without Gangrene - 05/31/2017 Hyperlipidemia - 10/14/2015 Atypical Chest Pain - 10/14/2015 History of Myositis - 01/08/2015 Lumbago - 01/08/2015 Family History of Ischemic Heart Disease - 04/27/2014 Cervicalgia - 12/09/2011 Review of Systems Review of Systems Constitutional: Negative. Respiratory: Negative. Cardiovascular: Negative. OBJECTIVE BP 115/78 Pulse 70 Ht 4' 11 (1.50m) Wt 147 lb 4.3 oz (66.8kg) LMP 02/07/2024 BMI 29.73 kg/(m^2). Physical Exam Vitals and nursing note reviewed. Constitutional: General: She is awake. She is not in acute distress. Appearance: Normal appearance. She is well-developed and well-groomed. She is not ill-appearing, toxic-appearing or diaphoretic. HENT: Head: Normocephalic. Right Ear: External ear normal. Left Ear: External ear normal. Nose: Nose normal. Eyes: General: Vision grossly intact. Conjunctiva/sclera: Conjunctivae normal. Pupils: Pupils are equal, round, and reactive to light. Neck: Vascular: No JVD. Trachea: Trachea normal. Cardiovascular: Rate and Rhythm: Normal rate and regular rhythm. Pulses: Normal pulses. Heart sounds: Normal heart sounds. No murmur heard. Pulmonary: Effort: Pulmonary effort is normal. No accessory muscle usage, prolonged expiration or respiratory distress. Breath sounds: Normal breath sounds. Musculoskeletal: Cervical back: Neck supple. Skin: General: Skin is warm and dry. Capillary Refill: Capillary refill takes less than 2 seconds. Neurological: General: No focal deficit present. Mental Status: She is alert and oriented to person, place, and time. Mental status is at baseline. Psychiatric: Attention and Perception: Attention and perception normal. Mood and Affect: Mood and affect normal. Speech: Speech normal. Behavior: Behavior normal. Behavior is cooperative. Thought Content: Thought content normal. Cognition and Memory: Cognition and memory normal. Judgment: Judgment normal. ASSESSMENT/PLAN: 1. Wellness examination - ICD9: V70.0, ICD10: Z00.00 (primary diagnosis) - Counseled on healthy diet and regular exercise - Follow up for annual exam in one year 2. Screening for depression - ICD9: V79.0, ICD10: Z13.31 - DEPRESSION SCREENING 3. Encounter for screening examination for other mental health and behavioral disorders - ICD9: V79.8, ICD10: Z13.39 - ANXIETY SCREENING 4. Encounter for therapeutic drug monitoring - ICD9: V58.83, ICD10: Z51.81 - COMPLETE BLOOD COUNT AND DIFFERENTIAL - COMPREHENSIVE METABOLIC PANEL - MAGNESIUM 5. Vitamin D deficiency - ICD9: 268.9, ICD10: E55.9 - VITAMIN D 25 HYDROXY 6. Memory impairment - ICD9: 780.93, ICD10: R41.3 Check labs, suspect fibromyalgia fog and/or kiki-menopause - THYROID STIMULATING HORMONE - VITAMIN B12 7. Screening for lipid disorders - ICD9: V77.91, ICD10: Z13.220 - LIPID PANEL BASIC Wellness exam completed. Health maintenance reviewed and updated. Chronic conditions and medications reviewed and updated as needed. Encouraged regular physical activity as tolerated, Healthy diet, and health promoting lifestyle. Encouraged regular eye doctor and dental visits. Portions of this note have been entered by ancillary staff. I have reviewed and when necessary edited, so that they are an adequate record of my encounter with this patient Please note that parts of this document were created using voice recognition software and therefore may contain grammatical errors. Patient verbalizes understanding of instructions from today's visit and in agreement with treatmentplan. Questions answered. Agrees to call the office if questions, concerns or issues with acute symptoms not improving or if they worsen. See diagnoses and orders for additional plan(s). Allergies and medications were reviewed, list was updated, and refills given if needed. Past medical, surgical, social, and family history reviewed and updated as appropriate. Encouraged proper diet & exercise as well as compliance with taking medications. Age- appropriate health preventative measures were discussed. Return in about 1 year (around 05/31/2025), or if symptoms worsen or fail to improve, for Wellness physical.. Sydnee Sumner APRN-ANALI documented in this encounterBl[facility] History of Present illness Narrative* Suyapa Peraza PA-C - 11/22/2023 11:45 AM EDT EST PATIENT Chief Complaint: Patient presents with: Full Body Skin Check HPI: Justine Bergeron is a 53 year old female who presents today for:Patient presents with: Full Body Skin Check No lesions of concern today. Pertinent History: History of skin cancer or atypical nevi: Yes - BCC right anterior mandible s/p mohs 07/12/2023 Family history of skin cancer: Yes - maternal great uncle with melanoma Organ transplant or immunosuppression: No or : No Past Medical History is reviewed. Medication List is reviewed. ROS: Skin as above. Physical Exam: Guardado skin type: II The patient is a pleasant female in no apparent distress. Alert and oriented x 3. A skin exam performed of the Scalp, face, ears, neck, chest, back, abdomen, bilateral upper extremities, bilateral lower extremities, buttocks, hands, feet, nails and hair is significant for: Variably hyperpigmented macules and papules, with generally good symmetry and internal consistency,widely distributed throughout the trunk and extremities. Overall benign-appearing Smooth siegel red papules scattered throughout trunk Densely scattered light yañez macules and small patches on all sun exposed areas Stuck-on verrucous, variably pigmented papules and plaques throughout trunk and extremities Assessment and Plan: Family history of melanoma, Hx of nonmelanoma skin cancer No evidence of recurrence at previous surgical site Continue routine full body skin exams as discussed Advised monthly self exams Skin exam, screening for skin cancer The nature of sun-induced photo-aging and skin cancers is discussed including the ABCDE's of melanoma. Sun avoidance, protective clothing, and the use of SPF 30+ sunscreens is advised. Patient is instructed to perform regular self skin exams. Observe for changing, symptomatic, or new skin lesions and return to dermatology if any lesions of concern are noted. Multiple nevi, Siegel angiomas, Solar lentigines,Seborrheic Keratoses Reassured of benign nature Monitor for change in size, shape or color, bleeding easily or scabs that don't heal Follow up as noted in plan or as needed. Intake: Devorah Darby RN Scribe: The documentation for this note was completed by Devorah Darby RN acting as scribe for Suyapa Peraza PA-C. November 22, 2023 11:24 AM. I have reviewed and agree with the Chief Complaint, patient-reported HPI, ROS, and Past Histories independently gathered by the clinical retail support associate and the remaining scribed note accurately describes my personal service to the patient. Suyapa Peraza MS, PA-C documented in this encounterBlanchard [facility]03-25-2024 Instructions* Patient Instructions* Suyapa Peraza PA-C - 11/22/2023 11:23 AM EDT GENERAL SUN SAFETY Thank you for allowing me to examine you for signs of skin cancer today. We had an opportunity to discuss my findings and any treatments I recommended. I believe that there are several steps that a person can do to help prevent skin cancers and to detect them at an early, treatable stage: 1. I highly recommend that once a month you perform your own complete skin check looking for changing or unusual spots. Use a wall-mounted mirror and a hand mirror to assist in seeing body areas thatare difficult to see otherwise. If you have a family member that can assist, this is often helpful.Additional information can be obtained at: www.skincancer.org/bqos-fhqkti-oqjwjkxzcql/early-detection 2. In many cases, skin cancer can be prevented. The best way to protect yourself is to avoid too much sun and sunburns. Health care providers believe that ultraviolet rays (UV rays) from the sun damage the skin and over time lead to skin cancer. Here are ways to protect yourself: -Don't spend long periods of time in direct sunlight. -Wear hats with brims to protect your face and ears. -Wear long-sleeved shirts and pants to protect your arms and legs. -Use broad spectrum sunscreens with a SPF (skin protection factor) of 30 or higher that protect against burning and tanning rays. Apply the lotion 30 minutes before you go outside. (Broad-spectrum sunscreens protect against UV-B and UV-A rays.) -Wear sunglasses to protect your eyes. -Use a lip balm with sunscreen. -Avoid the sun between 10am and 4pm. -Show any changing mole to your health care provider. documented in this encounterBlanchard [facility]03-14-2024 Miscellaneous Notes* Letter - Coordinator, Mammography - 11/11/2023 11:52 AM EDT November 11, 2023 PID: [id number] Justine Bergeron [address] [place] [address] Dear Ms. Bergeron, We are pleased to inform you that the results of your recent breast imaging exam on 11/11/2023 are normal. Your mammogram demonstrates that you have dense breast tissue, which could hide abnormalities. Dense breast tissue, in and of itself, is a relatively common condition. Therefore, this information is not provided to cause undue concern; rather, it is to raise your awareness and promote discussion with your health care provider regarding the presence of dense breast tissue in addition to other riskfactors. Early detection of cancer is very important. We also understand recommendations regarding breast cancer screening are controversial. Please discuss with your primary care provider which strategy is best for you and whether a mammogram is right for you. Your imaging studies and report will be kept on file at [facility] as part of your permanent medical record and are available for your continuing care. Thank you for allowing us to help in meeting your health care needs. Sincerely, Dr. Lawrence Interpreting Radiologist [facility] (Normal over 40) documented in this encounterBlanchard Valley [facility] System03-13-2024 History of Present illness Narrative* Michelle Dodson RT(R) - 11/10/2023 3:40 PM EDT Radiology Service Progress Note PATIENT NAME: Justine Bergeron DATE OF SERVICE: November 10, 2023 TIME: 3:23 PM PATIENT IDENTITY VERIFICATION COMPLETED USING TWO (2) IDENTIFIERS: Name and Date of confirmedby patient verbally. FALL SCREENING: Has the patient had 2 falls in the last year or 1 fall with injury or currently using an Ambulatory Assistive Device (Walker, Cane, Wheelchair, Crutches, etc.)? No PATIENT GENDER DATA: Female. status: : No status: NO. PATIENT RELEVANT IMPLANT DATA REVIEWED: Not Applicable PATIENT PRESENTS WITH AN IMPLANTABLE OR ATTACHED LICENSING WORKER: No RADIOLOGY DEPARTMENT: Mammography PERIPHERAL IV DATA: Not applicable SIGNED BY: RT Valdo(R) November 10, 2023 3:23 PM documented in this encounterBlanchard Valley [facility] System02-12-2024 History of Present illness Narrative* Benita Priest RT(R) - 10/11/2023 3:10 PM EST Radiology Service Progress Note PATIENT NAME: Justine Bergeron DATE OF SERVICE: October 11, 2023 TIME: 3:19 PM PATIENT IDENTITY VERIFICATION COMPLETED USING TWO (2) IDENTIFIERS: Name and Date of confirmedby patient verbally. FALL SCREENING: Has the patient had 2 falls in the last year or 1 fall with injury or currently using an Ambulatory Assistive Device (Walker, Cane, Wheelchair, Crutches, etc.)? No PATIENT GENDER DATA: Female. status: : No status: NO. PATIENT RELEVANT IMPLANT DATA REVIEWED: Not Applicable PATIENT PRESENTS WITH AN IMPLANTABLE OR ATTACHED LICENSING WORKER: No RADIOLOGY DEPARTMENT: General X-ray: Exam(s) Completed: Spine X-Ray(s): Thoracic PERIPHERAL IV DATA: Not applicable SIGNED BY: RT Julien(R) October 11, 2023 3:19 PM documented in this encounterBlanchard Valley [facility]02-12-2024 History of Present illness Narrative* Sydnee Sumner APRN.KOSHER DIETARY SERVICE MANAGER - 10/11/2023 2:50 PM EST Images from the original note were not included. SUBJECTIVE Justine Bergeron is a 53 year old female here today for a check up on her medical problems. Chief Complaint Patient presents with: Back Pain HPI Justine Bergeron is an 53 year old female presents today for back pain. Onset was gradual over the last few months, now since Wednesday it is pretty consistent with movement and deep breathing. It islocalized to left side of middle back. It is constant. It is described as aching. It has been alleviated by nothing specific and aggravated by certain movements. No significant trauma that patient isaware of. Denies numbness, tingling, weakness, saddle paresthesia and bowel or bladder difficulties/leaking/loss of control. Her medications were reviewed today and her list is now up to date. Medications Current Outpatient Medications Medication Sig metoprolol succinate ER (TOPROL XL) 50 mg 24 hr tablet Take 1 tablet by mouth once daily. rosuvastatin (CRESTOR) 10 mg tablet Take 1 tablet by mouth daily at bedtime. verapamil SR (CALAN SR) 120 mg CR tablet Take 1 tablet by mouth once daily. cyclobenzaprine (FLEXERIL) 5 mg tablet Take 1 tablet by mouth daily at bedtime. Take 5 mg at bedtime. Gradually increase to three times a day as tolerated famotidine (PEPCID) 20 mg tablet Take 1 tablet by mouth twice daily. aspirin 81 mg cap Take 81 mg by mouth once daily. multivitamin (MULTIPLE VITAMINS ORAL) Take by mouth. Cholecalciferol, Vitamin D3, 2,000 unit cap Take 2 capsules by mouth once daily. (Patient taking differently: Take 2,000 Units by mouth once daily.) No current facility-administered medications for this visit. ALLERGIES Allergen Reactions Levaquin [Levofloxa* Other: See Comments Numbness, palpitations Aleve [Naproxen Sod* Other: See Comments BP elevation Codeine GI Upset Heart pounding Epinephrine Other: See Comments Heart races. Heart palpitations. ACTIVE PROBLEM LIST Lumbar Disc Herniation - 03/20/2020 Annular Tear of Lumbar Disc - 03/20/2020 Raynaud's Phenomenon Without Gangrene - 05/31/2017 Hyperlipidemia - 10/14/2015 Atypical Chest Pain - 10/14/2015 History of Myositis - 01/08/2015 Lumbago - 01/08/2015 Family History of Ischemic Heart Disease - 04/27/2014 Cervicalgia - 12/09/2011 Social History Tobacco Use Smoking status: Never Smokeless tobacco: Never Vaping Use Vaping Use: Never used Substance Use Topics Alcohol use: Yes Comment: 1-2 wine or beer a week Drug use: No Review of Systems Respiratory: Negative. Cardiovascular: Negative. Musculoskeletal: Positive for back pain. OBJECTIVE BP 124/80 Pulse 77 Resp 16 Ht 5' 0 (1.52m) Wt 146 lb 11.2 oz (66.5kg) LMP 08/02/2023 BMI 28.65 kg/(m^2). Physical Exam Vitals and nursing note reviewed. Constitutional: General: She is awake. She is not in acute distress. Appearance: Normal appearance. She is well-developed and well-groomed. She is not ill-appearing, toxic-appearing or diaphoretic. HENT: Head: Normocephalic. Right Ear: External ear normal. Left Ear: External ear normal. Nose: Nose normal. Eyes: General: Vision grossly intact. Conjunctiva/sclera: Conjunctivae normal. Pupils: Pupils are equal, round, and reactive to light. Neck: Vascular: No JVD. Trachea: Trachea normal. Cardiovascular: Rate and Rhythm: Normal rate and regular rhythm. Pulses: Normal pulses. Heart sounds: Normal heart sounds. No murmur heard. Pulmonary: Effort: Pulmonary effort is normal. No accessory muscle usage, prolonged expiration or respiratory distress. Breath sounds: Normal breath sounds. Musculoskeletal: Cervical back: Neck supple. Back: Comments: Pain located to lower rib line on the left to the middle back. Skin: General: Skin is warm and dry. Capillary Refill: Capillary refill takes less than 2 seconds. Neurological: General: No focal deficit present. Mental Status: She is alert and oriented to person, place, and time. Mental status is at baseline. Psychiatric: Attention and Perception: Attention and perception normal. Mood and Affect: Mood and affect normal. Speech: Speech normal. Behavior: Behavior normal. Behavior is cooperative. Thought Content: Thought content normal. Cognition and Memory: Cognition and memory normal. Judgment: Judgment normal. ASSESSMENT/PLAN: 1. Acute left-sided thoracic back pain - ICD9: 724.1, ICD10: M54.6 Pain is aggravated with movement, not consistent with a cardiac type of pain, suspect musculoskeletal. Check xray, increase muscle relaxer use. Gentle stretches, consider steroids if persistent. - XR THORACIC LIMITED 2V AP/LAT Sydnee Sumner APRN.CNP Portions of this note have been entered by ancillary staff. I have reviewed and when necessary edited, so that they are an adequate record of my encounter with this patient Please note that parts of this document were created using voice recognition software and therefore may contain grammatical errors. Patient verbalizes understanding of instructions from today's visit and in agreement with treatmentplan. Questions answered. Agrees to call the office if questions, concerns of issues with acute symptoms not improving or if they worsen. See diagnoses and orders for additional plan(s). Allergies and medications were reviewed, list was updated, and refills given if needed. Past medical, surgical, social, and family history reviewed and updated as appropriate. Encouraged proper diet & exercise as well as compliance with taking medications. Age- appropriate health preventative measures were discussed. Return if symptoms worsen or fail to improve, for Keep next scheduled appointment.. Sydnee Sumner APRN-ANALI documented in this encounterBlanchard Valley Health System11-13-2023 Instructions* Patient Instructions* Sulma Ivy RN - 07/12/2023 12:40 PM EST WOUND CARE INSTRUCTIONS WITH DISSOLVABLE SUTURES WOUND CARE: The dressing you have been sent home with is called a pressure dressing. It should remain in place for 48 hours. To care for the wound: Remove pressure dressing after 48 hours. Tip: wet dressing in the shower to assist with adhesive removal. You can remove adhesive with soap,water, or alcohol pad. Clean with gentle soap and water twice daily. Example of gentle soap: Dove, Dial, CeraVe, Cetaphil, Aveeno, or any non-scented bar of soap After wound is thoroughly cleansed and dried, apply a thick layer of Vaseline or Aquaphor to the suture line. Do NOT use polysporin or neosporin on your wound After 72 hours, may leave uncovered as long as it is kept greasy and won t interfere with clothing. You may notice redness along the suture line as the wound heals This is normal- it is your body trying to break down the sutures If redness persists and continues to grow, please call us If top sutures are present in 10 days- you may cleanse them with hydrogen peroxide 2x/day to help break them down Signs and symptoms of infection: Redness streaking away from the wound, swelling, new onset of pain, foul smelling drainage, pus, and generalized fevers/chills BLEEDING: Careful attention has been given to your wound to prevent bleeding. The initial dressing you have on is a pressure dressing to also help prevent bleeding. You may notice a small amount of blood on the edges of the dressing the first day; this is normal. In case of persistent bleeding: Apply firm, steady pressure over the dressing with gauze for 20 minutes. If bleeding persists, please apply firm pressure for another 30 minutes. Tip #1: use a timer to record the time of pressure held Tip #2: do not peek at wound until time is completed- this will disrupt clotting time of vessel Tip #3: you may also use ice, as this may aid in slowing any bleeding. 2. If bleeding persists, please call the office using the numbers below. We will instruct you on how to proceed. PAIN: What pain can I expect after surgery? You can expect to have some pain after surgery. This is normal. The pain is typically worse for a day or two after surgery, and quickly begins to get better. Most patients are able to manage their pain after surgery with Knxf-swl-Kqahkxy (OTC) medications such as Tylenol (acetaminophen) and Motrin/A dvil (ibuprofen). If you have a condition that does not allow you to take either of these medications, please notify us immediately. How will I manage my pain? The best strategy for controlling your pain after surgery is around the clock pain control with Tylenol (acetaminophen) and Motrin/Advil (ibuprofen). Alternating these medications with each other allows you to maximize your pain control. In addition to Tylenol and Motrin, you can use ice packs on your incisions for 20 minutes each hour for the first two days after surgery to help reduce your painand swelling. After the first two days, you may use a heating pad or warm compress on your incisions and surrounding area. If you have received a graft, please *DO NOT* apply ice directly onto the graft site. How will I alternate my regular strength ftpp-fib-ctmilwz pain medication? You will take a dose of pain medication every four hours while you're awake. Start by taking 200-400 mg of Motrin/Advil (ibuprofen) (1-2 pills of 200 mg) 4 hours later, take 500-1000 mg of Tylenol (acetaminophen) (1-2 pills of 500 mg) 4 hours later, take 200-400 mg of Motrin/Advil (ibuprofen) (1-2 pills of 200 mg) 4 hours later, take 500-1000 mg of Tylenol (acetaminophen) (1-2 pills of 500 mg) 4 hours later, take 200-400 mg of Motrin/Advil (ibuprofen) (1-2 pills of 200 mg) We recommend that you follow this schedule aezdcy-lzk-dtzvn for at least 3 days after surgery, or until you feel that it is no longer needed. As an alternative, you can purchase OTC Advil Dual Action, which is a combined pill containing Acetaminophen 250mg and Ibuprofen 125mg. IMPORTANT: Do not take more than 3000mg of Tylenol (acetaminophen) or 3200mg of Motrin/Advil (ibuprofen) in a 24-hour period. Be aware that some chronic pain medications as well as over the counter cold and flu remedies may also contain acetaminophen. Take this into consideration to avoid exceeding the maximum daily dose. Easy on the alcohol. It is recommended to avoid heavy alcohol intake (more than two standard drinksper day for men and one standard drink for women) after surgery and while taking acetaminophen. Drinking alcohol causes the liver to convert more of the acetaminophen you take into toxic byproducts. Alcohol also acts as a blood thinner and can increase your risk for post-operative bleeding. Continue to take all of your prescribed medication. SWELLING: Swelling after surgery is normal and can peak at 48hr after surgery Suggestion: sleep on 1-2 pillows post procedure for 2-3 days to minimize swelling You can do this if you had a procedure on your face, top of head, ears, jaw, eyes, nose, cheeks, etc. Elevate arms and legs at rest to decrease swelling You can wrap your affected extremity by using KAREN wrap, coban wrap, or compression stockings to also minimize swelling Please also use ice to decrease swelling. Can use approximately 20 minutes each hour. NOTES: You may shower regularly after your initial surgery dressing is removed Avoid increasing heart rate or blood pressure for the first 72 hours following surgery (increases bleeding risk) Avoid heavy lifting and strenuous activity for 72 hours following surgery Return to referring college recruiter for skin checks every 6 months Wear sunscreen PHONE NUMBERS: [place]: [phone], [phone], [phone], or [phone] (Wednesday-Wednesday, 8am-5pm) For emergencies only: On-call number: [phone] and ask for the color control supervisor dermatology surgery fellow documented in this encounterBlanchard Valley Health System11-13-2023 History of Present illness Narrative* Rufina Tomlinson MD - 07/12/2023 10:15 AM EST MOHS MICROGRAPHIC OPERATIVE REPORT SERVICE DATE: 07/12/2023 SERVICE TIME: 10:30 AM LOCATION: { [place]:[facility] REFERRING PROVIDER: Suyapa Peraza [id number] [facility] [id number] PROCEDURE START TIME: 10:55AM PROCEDURE END TIME: 12:45 PM SURGEON: Dr. Rufina Tomlinson RESIDENT: Dr. Darden REGISTERED NURSE: Sulma Ivy RN ANTICOAGULANTS: ASA IMPLANTED DEVICES: None ANTIBIOTIC PROPHYLAXIS: Not required TRANSPLANT PATIENT: No PHOTOS: Photos taken VERIFICATION OF PROCEDURE: Procedure to be Performed: Mohs Surgery Patient Verified By: Name and Date of Site(s) Confirmed: Patient confirmed site from image in the EMR. Patient used mirror(s) to identifysite(s). Patient verbalized agreement of surgical site(s). Site(s) Marked: Provider marking the site with patient involvement. Relevant documentation, images, implants or special equipment present: Yes SIGN IN COMMUNICATION: Completed Time Out: Team Confirms the Correct Patient, Correct Procedure, Correct Site(s) and Site Marked, Correct Position (if applicable). Time: 11:02 AM Affirmation of Time Out: Yes Sign out Discussion: Completed UNIVERSAL PROTOCOL / SAFETY CHECKLIST Procedure to be Performed: mohs Sign In: A Moment of CARE was completed. Personnel directly involved with the procedure wore the appropriate PPE (Personal Protective Equipment). Patient/Surrogate Stated/Verified: PATIENT VERIFIED(optional for EMERGENT procedures): Patient name, Date of , Relevant allergies, and The intended procedure Time Out Communication: Intended patient and procedure match the source documents. Consent documented and matches the intended procedure. Sign Out: SIGN OUT (optional for EMERGENT procedures): All specimen containers correctly labeled. Post-procedure follow-up management communicated and Plan of Care Visit completed when applicable. Renay Willis RN LESION #1 Preoperative Diagnosis: BCC Nodular of the right anterior mandible Tumor Type: Primary Path Report Available at Bedside: Inside pathology report # [id number], Date of Biopsy: 04/16/23, and Biopsy Performed By: JANA Evans Pre-op Size: 0.6 cm - 1 cm, (0.6cm X 0.9cm) Indication for Mohs: Anatomic Location where lesion is prone to recur, Type of tumor, and Ill-defined borders Location: Area M: (Includes Cheeks, Forehead, Scalp, Neck, Jawline and Pretibial Surface) Preparation: Chlorhexidine LAYER A The patient was positioned, prepped with alcohol and draped in the usual manner. Anesthesia was obtained with local infiltration. The clinically apparent tumor was then debulked with a curette. A 1-2mm rim of tissue was marked circumferentially around the defect. The area thus outlined was exciseddeep to the subcutis. Hemostasis was achieved with electrocautery. The specimen was oriented, subdivided into 2 sections, chromacoded and submitted for horizontal frozen sections. The patient tolerated the procedure well and no complications were noted. Upon review of the horizontal frozen sections for Layer A, no residual tumor was identified . CLOSURE Rationale for Primary Closure: Given the location and size of the defect and in order to minimize the pain, bleeding, and infection associated with second intention healing, the wound was closed witha primary linear closure. Diagnosis: Surgical defect secondary to Mohs micrographic surgery on a Primary tumor type from right anterior mandible (location of tumor). Post-op Defect Size: 0.9 x 1.3cm INTERMEDIATE CLOSURE: Requiring skin and subcutaneous fat. The beveled edge of the Mohs defect was surgically removed. The wound edges were undermined in all directions to decrease the tension of thewound and facilitate skin edge apposition. Meticulous hemostasis was achieved with electrocautery. Redundant standing cones were removed to allow the wound to be closed without distortion. The deep tissue were opposed with 5-0 Absorbable Absorbant sutures. The epidermal edges were opposed with 5-0 Absorbable sutures. The surgical site was cleansed with saline and covered with a bandage as below. The patient tolerated the procedure well and no complications were noted. Final Size: Linear closure - 2.0 cm SCC Staging N/A N/A LOCAL ANESTHETIC: 3cc 1% Lidocaine HCl plain ESTIMATED BLOOD LOSS: Less Than Minimal Unless Noted Here. COMPLICATIONS: None, patient tolerated procedure well. TOTAL OPERATIVE TIME: 110 Minutes POST OP MEDS: Tylenol 1000 mg every 8 hours as needed for pain relief POST OP CARE: Pressure Dressing applied consisting of Contact Layer: Petrolatum ointment and Non stick Telfa pad Absorbent Layer: Gauze pad Liquid Adhesive to surrounding skin to adhere dressing. Outer Layer: Hypafix MOHS POST OP INSTRUCTIONS GIVEN WITH VERBAL UNDERSTANDING: Yes PATIENT DISCHARGED TO GEAR FINISHER/NAME: self FOLLOW UP: Follow up eVisit offered. Patient accepted. The documentation for this note was completed by Sulma Ivy RN acting as scribe for Rufina Gage MD. July 12, 2023 12:56 PM. I/primary surgeon/proceduralist performed the procedure with assistance. I/primary surgeon/proceduralist reviewed the specimen(s) and worked as the pathologist. I have seen and examined Justine Bergeron. I have discussed the case and the management of this patient's care with the Resident. I also have reviewed and agree with the assessment and plan as stated above and agree with all of its relevant components. I was present for and supervised the procedures as documented above by the Resident. I was physically present during the critical portion(s) of this procedure. I agree with the operative note independently gathered by the clinical retail support associate and the remaining scribed note accurately describes my personal service to the patient. I/primary surgeon/proceduralist reviewed the specimen(s) and worked as the pathologist. Rufina Tomlinson MD July 13, 2023 Rufina Tomlinson MD documented in this encounterBlanchard Valley Health System09-25-2023 Miscellaneous Notes* Telephone Encounter - Sulma Dow LPN - 05/24/2023 2:07 PM EDT Last office visit: 05/12/23 Next appointment scheduled: No future appointments scheduled at this time. Last labs: 04/22/23 Patient phones requesting refills as follows: Requested Prescriptions Pending Prescriptions Disp Refills rosuvastatin (CRESTOR) 10 mg tablet 30 tablet 5 Sig: Take 1 tablet by mouth daily at bedtime. Please review and advise. Sulma Dow LPN documented in this encounterBlanchard Valley Health System09-18-2023 Miscellaneous Notes* Telephone Encounter - Dayana Helm - 05/17/2023 10:26 AM EDT Called patient to update her on changes made to progress note. No further questions or concerns at this time. * Telephone Encounter - Suyapa Peraza PA-C - 05/17/2023 9:24 AM EDT The note has been addended to reflect the changes. Suyapa Rodriguez * Telephone Encounter - DaphnePoonam - 05/14/2023 3:22 PM EDT PT calling in asking to have her notes changed to clarify that she did in fact did not have the Anesthetic: 1% lidocaine w/ epinephrine 1-100,000 local infiltration it was only lidocaine she is allergic to epinephrine please advise. documented in this encounterBlanchard Valley Health System09-13-2023 History of Present illness Narrative* Sydnee Sumner APRN.ANALI - 05/12/2023 1:47 PM EDT CHIEF COMPLAINT: Patient presents with: Yearly Exam HISTORY: Justine Bergeron is a 52 year old female who presents 05/12/2023 for her Yearly Physical Exam. They are here today for a wellness exam. Is able to complete ADL's with independence. Seen for abdominal pain 04/21, pain got more persistent, more intense but now resolved. Right heel with some pain. Other Providers: [facility] for checker. Rheumatology Dermatology Depression Screen Q1: Over the past two weeks, have you felt down, depressed or hopeless? No Q2: Over the past two weeks, have you felt little interest or pleasure in doing things? 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 Are periods regular? No Any concerns about her periods? No Last Pap: No results found for: CYTO Past Medical History: PAST MEDICAL HISTORY Diagnosis Date Anemia treated with iron in past Arthritis Displacement of intervertebral disc, site unspecified, without myelopathy cervical and lower back Family history of early CAD Fibromyalgia Heart murmur Mammographic microcalcification Mitral valve disorders(424.0) MVP MVP (mitral valve prolapse) 11/06/2010 Near syncope Other and unspecified hyperlipidemia 2019 told high age 22 on RX on and off in past Seizure (HCC) pt told absent seizure' during dental appointment no workup Family Medical History: FAMILY HISTORY Problem Relation Age of Onset Hypertension Mother Diabetes Mother Stroke Mother 62 carotid disease other (CABG) Mother 67 Heart Father 64 PA coronary stent Heart Brother 37 PA 3 stents Hypertension Brother other (Hemophelia) Brother Uterine Fibroids Brother Hypertension Maternal Grandmother other (Myocardial infarction) Maternal Grandfather 54 Diabetes Maternal Grandfather Breast Cancer Paternal Grandmother other (Myocardidal infarction) Paternal Grandmother 80 3 stents other (brain bleeding) Paternal Grandmother other (cousins) Other Mi' age 41-42 Maternal Social History: Social History Tobacco Use Smoking status: Never Smokeless tobacco: Never Vaping Use Vaping Use: Never used Substance Use Topics Alcohol use: Yes Comment: 1-2 wine or beer a week Drug use: No Allergies: ALLERGIES Allergen Reactions Levaquin [Levofloxa* Other: See Comments Numbness, palpitations Aleve [Naproxen Sod* Other: See Comments BP elevation Codeine GI Upset Heart pounding Epinephrine Other: See Comments Heart races. Heart palpitations. Medications: Current Outpatient Medications Medication Sig famotidine (PEPCID) 20 mg tablet Take 1 tablet by mouth twice daily. verapamil SR (CALAN SR) 120 mg CR tablet Take 1 tablet by mouth once daily. rosuvastatin (CRESTOR) 10 mg tablet Take 1 tablet by mouth daily at bedtime. metoprolol succinate ER (TOPROL XL) 50 mg 24 hr tablet Take 1 tablet by mouth once daily. aspirin 81 mg cap Take 81 mg by mouth once daily. multivitamin (MULTIPLE VITAMINS ORAL) Take by mouth. Cholecalciferol, Vitamin D3, 2,000 unit cap Take 2 capsules by mouth once daily. (Patient taking differently: Take 2,000 Units by mouth once daily.) cyclobenzaprine (FLEXERIL) 5 mg tablet Take 1 tablet by mouth daily at bedtime. Take 5 mg at bedtime. Gradually increase to three times a day as tolerated No current facility-administered medications for this visit. Chronic Problem List: ACTIVE PROBLEM LIST Lumbar Disc Herniation - 03/20/2020 Annular Tear of Lumbar Disc - 03/20/2020 Raynaud's Phenomenon Without Gangrene - 05/31/2017 Hyperlipidemia - 10/14/2015 Atypical Chest Pain - 10/14/2015 History of Myositis - 01/08/2015 Lumbago - 01/08/2015 Family History of Ischemic Heart Disease - 04/27/2014 Cervicalgia - 12/09/2011 Review of Systems Review of Systems Constitutional: Negative. Respiratory: Negative. OBJECTIVE BP 114/64 Pulse 85 Ht 4' 10.5 (1.49m) Wt 140 lb (63.5kg) SpO2 98% LMP 04/07/2023 BMI 28.76 kg/(m^2). Physical Exam Vitals and nursing note reviewed. Constitutional: General: She is awake. She is not in acute distress. Appearance: Normal appearance. She is well-developed and well-groomed. She is not ill-appearing, toxic-appearing or diaphoretic. HENT: Head: Normocephalic. Right Ear: External ear normal. Left Ear: External ear normal. Nose: Nose normal. Eyes: General: Vision grossly intact. Conjunctiva/sclera: Conjunctivae normal. Pupils: Pupils are equal, round, and reactive to light. Neck: Vascular: No JVD. Trachea: Trachea normal. Cardiovascular: Rate and Rhythm: Normal rate and regular rhythm. Pulses: Normal pulses. Heart sounds: Normal heart sounds. No murmur heard. Pulmonary: Effort: Pulmonary effort is normal. No accessory muscle usage, prolonged expiration or respiratory distress. Breath sounds: Normal breath sounds. Musculoskeletal: Cervical back: Neck supple. Skin: General: Skin is warm and dry. Capillary Refill: Capillary refill takes less than 2 seconds. Neurological: General: No focal deficit present. Mental Status: She is alert and oriented to person, place, and time. Mental status is at baseline. Psychiatric: Attention and Perception: Attention and perception normal. Mood and Affect: Mood and affect normal. Speech: Speech normal. Behavior: Behavior normal. Behavior is cooperative. Thought Content: Thought content normal. Cognition and Memory: Cognition and memory normal. Judgment: Judgment normal. ASSESSMENT/PLAN: 1. Wellness examination - ICD9: V70.0, ICD10: Z00.00 (primary diagnosis) - Counseled on healthy diet and regular exercise - Calcium intake with supplements or by diet of 1000 mg/day for under 50, 1200- 1500 mg/day for 50+ - Depression screening tool completed and reviewed with patient. Based on score and interview, patient is not at risk for depression and recommended no further intervention at this time. - Patient was counseled [id number]-ccva by myself (the billing provider) for the following immunizations and vaccine components, including side effects: Shingrix. Patient consents for immunization and understands risks and benefits. Will schedule as future nurse visit per patient preference. 2. Gastroesophageal reflux disease without esophagitis - ICD9: 530.81, ICD10: K21.9 3. Raynaud's phenomenon without gangrene - ICD9: 443.0, ICD10: I73.00 4. Pain of right heel - ICD9: 729.5, ICD10: M79.671 Suspect plantar fascitis. Discussed stretches and management strategies. 5. Encounter for immunization - ICD9: V03.89, ICD10: Z23 - ZOSTER VACCINE, RECOMBINANT (SHINGRIX) Wellness exam completed. Health maintenance reviewed and updated. Chronic conditions and medications reviewed and updated as needed. Encouraged regular physical activity as tolerated, Healthy diet, and health promoting lifestyle. Encouraged regular eye doctor and dental visits. Portions of this note have been entered by ancillary staff. I have reviewed and when necessary edited, so that they are an adequate record of my encounter with this patient Please note that parts of this document were created using voice recognition software and therefore may contain grammatical errors. Patient verbalizes understanding of instructions from today's visit and in agreement with treatmentplan. Questions answered. Agrees to call the office if questions, concerns or issues with acute symptoms not improving or if they worsen. See diagnoses and orders for additional plan(s). Allergies and medications were reviewed, list was updated, and refills given if needed. Past medical, surgical, social, and family history reviewed and updated as appropriate. Encouraged proper diet & exercise as well as compliance with taking medications. Age- appropriate health preventative measures were discussed. Return in about 1 year (around 05/12/2024) for Wellness physical.. BREEZY Viveros documented in this encounterBlanchard Valley Health System08-23-2023 History of Present illness Narrative* Sydnee Sumner APRN.CNP - 04/21/2023 2:47 PM EDT SUBJECTIVE Justine Bergeron is a 52 year old female here today for acute concern. Chief Complaint Patient presents with: Abdominal Pain HPI Justine Bergeron is an 52 year old female presents today for abdominal pain to mid-abdomen. Onset for this was Wednesday, about 4 days ago. Pain is located to middle of abdomen and radiates up. Duration not constant, brought on with movement or pressure. Denies fever, chills, night sweats, rashes, myalgias or arthralgias. No back pain, issues with urination or concerns for UTI. No vomiting, nausea, constipation or diarrhea. Gallbladder is still present and appendix is. Her medications were reviewed today and her list is now up to date. Medications Current Outpatient Medications Medication Sig verapamil SR (CALAN SR) 120 mg CR tablet Take 1 tablet by mouth once daily. rosuvastatin (CRESTOR) 10 mg tablet Take 1 tablet by mouth daily at bedtime. metoprolol succinate ER (TOPROL XL) 50 mg 24 hr tablet Take 1 tablet by mouth once daily. cyclobenzaprine (FLEXERIL) 5 mg tablet Take 1 tablet by mouth daily at bedtime. Take 5 mg at bedtime. Gradually increase to three times a day as tolerated aspirin 81 mg cap Take 81 mg by mouth once daily. multivitamin (MULTIPLE VITAMINS ORAL) Take by mouth. Cholecalciferol, Vitamin D3, 2,000 unit cap Take 2 capsules by mouth once daily. (Patient taking differently: Take 2,000 Units by mouth once daily.) famotidine (PEPCID) 20 mg tablet Take 1 tablet by mouth twice daily. No current facility-administered medications for this visit. ALLERGIES Allergen Reactions Levaquin [Levofloxa* Other: See Comments Numbness, palpitations Aleve [Naproxen Sod* Other: See Comments BP elevation Codeine GI Upset Heart pounding Epinephrine Other: See Comments Heart races. Heart palpitations. ACTIVE PROBLEM LIST Lumbar Disc Herniation - 03/20/2020 Annular Tear of Lumbar Disc - 03/20/2020 Raynaud's Phenomenon Without Gangrene - 05/31/2017 Hyperlipidemia - 10/14/2015 Atypical Chest Pain - 10/14/2015 History of Myositis - 01/08/2015 Lumbago - 01/08/2015 Family History of Ischemic Heart Disease - 04/27/2014 Cervicalgia - 12/09/2011 Social History Tobacco Use Smoking status: Never Smokeless tobacco: Never Vaping Use Vaping Use: Never used Substance Use Topics Alcohol use: Yes Comment: 1-2 wine or beer a week Drug use: No Review of Systems Respiratory: Negative. Cardiovascular: Negative. Gastrointestinal: Positive for abdominal pain. Negative for anal bleeding, blood in stool, constipation, diarrhea, nausea, rectal pain and vomiting. OBJECTIVE BP 100/60 Pulse 78 Wt 142 lb (64.4kg) SpO2 99% LMP 04/07/2023 Physical Exam Vitals and nursing note reviewed. Constitutional: General: She is awake. She is not in acute distress. Appearance: Normal appearance. She is well-developed and well-groomed. She is not ill-appearing, toxic-appearing or diaphoretic. HENT: Head: Normocephalic. Right Ear: External ear normal. Left Ear: External ear normal. Nose: Nose normal. Eyes: General: Vision grossly intact. Conjunctiva/sclera: Conjunctivae normal. Pupils: Pupils are equal, round, and reactive to light. Neck: Vascular: No JVD. Trachea: Trachea normal. Cardiovascular: Rate and Rhythm: Normal rate and regular rhythm. Pulses: Normal pulses. Heart sounds: Normal heart sounds. No murmur heard. Pulmonary: Effort: Pulmonary effort is normal. No accessory muscle usage, prolonged expiration or respiratory distress. Breath sounds: Normal breath sounds. Abdominal: General: Abdomen is flat. Bowel sounds are normal. Palpations: Abdomen is soft. There is no shifting dullness, fluid wave, hepatomegaly, splenomegaly,mass or pulsatile mass. Tenderness: There is abdominal tenderness in the right upper quadrant and epigastric area. There isno guarding or rebound. Positive signs include Arreola's sign. Negative signs include Rovsing's signand McBurney's sign. Comments: She does have some tenderness on firm palpation over the abdomen to the epigastric area and over the RUQ Musculoskeletal: Cervical back: Neck supple. Skin: General: Skin is warm and dry. Capillary Refill: Capillary refill takes less than 2 seconds. Neurological: General: No focal deficit present. Mental Status: She is alert and oriented to person, place, and time. Mental status is at baseline. Psychiatric: Attention and Perception: Attention and perception normal. Mood and Affect: Mood and affect normal. Speech: Speech normal. Behavior: Behavior normal. Behavior is cooperative. Thought Content: Thought content normal. Cognition and Memory: Cognition and memory normal. Judgment: Judgment normal. ASSESSMENT/PLAN: 1. Abdominal pain, RUQ (right upper quadrant) - ICD9: 789.01, ICD10: R10.11 (primary diagnosis) Differential Diagnosis includes GERD, Gastritis, and Gall bladder colic/cholelithiasis - Increase treatment with Pepcid 20 mg BID to pepcid 40 BID x1 week - Work up with RUQ ultrasound - US ABD RIGHT UPPER QUADRANT 2. Gastroesophageal reflux disease without esophagitis - ICD9: 530.81, ICD10: K21.9 See #1 3. History of gastritis - ICD9: V12.79, ICD10: Z87.19 See #1 - FAMOTIDINE 20 MG TABLET Portions of this note have been entered by ancillary staff. I have reviewed and when necessary edited, so that they are an adequate record of my encounter with this patient Please note that parts of this document were created using voice recognition software and therefore may contain grammatical errors. Patient verbalizes understanding of instructions from today's visit and in agreement with treatmentplan. Questions answered. Agrees to call the office if questions, concerns of issues with acute symptoms not improving or if they worsen. See diagnoses and orders for additional plan(s). Allergies and medications were reviewed, list was updated, and refills given if needed. Past medical, surgical, social, and family history reviewed and updated as appropriate. Encouraged proper diet & exercise as well as compliance with taking medications. Age- appropriate health preventative measures were discussed. Return if symptoms worsen or fail to improve, for Keep next scheduled appointment.. Sydnee Sumner APRN-ANALI documented in this encounterBlanchard Valley [facility] System08-23-2023 Miscellaneous Notes* Telephone Encounter - Roselyn Arias RN - 04/21/2023 2:44 PM EDT Called patient regarding biopsy results and to discuss Mohs surgery expectations/instructions. Patient voiced understanding and would like to proceed. Routed to Mohs schedulers to set up appointment time. Soft hold [place] 05/24 Dr. Tomlinson @ 8:15 am. Roselyn Arias RN * Telephone Encounter - Roselyn Arias RN - 04/20/2023 9:05 AM EDT Attempted to call patient regarding biopsy results and to discuss Mohs surgery. No answer, LVM and provided call back number to clinical triage. PROCEDURE & TIME REQUIRED Mohs Micrographic surgery: AUC: 7 Mohs surgery preoperative scoring for BCC and SCC (for scheduling): Lesion 1 1. Where is the lesion located? Other location (1 points) A. Skin, right anterior mandible, shave biopsy: - Basal cell carcinoma, nodular type. 2. Is the lesion a recurrent tumor?Unknown (0 points) 3. Does the tumor have an aggressive histologic subtype? (micronodular or infiltrative BCC, moderate or poorly differentiated SCC) No (0 points) 4. Lesion size 0.5 x 0.5 cm <1 cm (0 points) Total Points for Lesion: 1 If 2 lesions are close together and done on the same day add 1 point. Total points: 1 If score is 3 or higher, schedule in AM Mohs slots only If score is 5 or higher, please hold 2 Mohs surgery slots For every 4 additional points hold an additional slot If the lesion has 6 or greater number of pieces please schedule at location where 2 histotechs are located. Please include total points in the appointment visit notes. Derm time required: one slot , AM, and PM Approved by: Roselyn Arias RN Schedule with: First Available Location: Pt preference Photos in Get Images * Telephone Encounter - Mamie Zaldivar PA-C - 04/19/2023 3:42 PM EDT Please inform patient of the following biopsy result(s): FINAL DIAGNOSIS A. Skin, right anterior mandible, shave biopsy: - Basal cell carcinoma, nodular type. Recommended treatment: Mohs Size: 0.5 x 0.5 cm AUC: 7 Follow up full body skin check in 6 months. Thank you, Mamie Zaldivar PA-C documented in this encounterBlanchard Valley Health System08-18-2023 Instructions* Patient Instructions* Suyapa Peraza PA-C - 04/16/2023 10:51 AM EDT GENERAL SUN SAFETY Thank you for allowing me to examine you for signs of skin cancer today. We had an opportunity to discuss my findings and any treatments I recommended. I believe that there are several steps that a person can do to help prevent skin cancers and to detect them at an early, treatable stage: 1. I highly recommend that once a month you perform your own complete skin check looking for changing or unusual spots. Use a wall-mounted mirror and a hand mirror to assist in seeing body areas thatare difficult to see otherwise. If you have a family member that can assist, this is often helpful.Additional information can be obtained at: www.skincancer.org/alyz-nvotzy-cjadkfqzuwq/early-detection 2. In many cases, skin cancer can be prevented. The best way to protect yourself is to avoid too much sun and sunburns. Health care providers believe that ultraviolet rays (UV rays) from the sun damage the skin and over time lead to skin cancer. Here are ways to protect yourself: -Don't spend long periods of time in direct sunlight. -Wear hats with brims to protect your face and ears. -Wear long-sleeved shirts and pants to protect your arms and legs. -Use broad spectrum sunscreens with a SPF (skin protection factor) of 30 or higher that protect against burning and tanning rays. Apply the lotion 30 minutes before you go outside. (Broad-spectrum sunscreens protect against UV-B and UV-A rays.) -Wear sunglasses to protect your eyes. -Use a lip balm with sunscreen. -Avoid the sun between 10am and 4pm. -Show any changing mole to your health care provider. CARE FOR YOUR SHAVE BIOPSY SITE Please follow these instructions for daily wound care: 1. Wash the area every day with gentle soap and water. 2. Apply a thin layer of Vaseline or Aquaphor to the wound site to keep the area slightly greasy atall time (this helps to prevent scabbing). Please do not use an old tub of ointment as this can introduce germs into your wound and cause infection. 3. Cover with a bandage and continue this daily process until the wound is healed. Do not leave a soiled or wet bandage on the wound. -Keep the area clean and dry with the bandage in place the day of surgery. -If you experience any bleeding, please apply pressure to the area for approximately 10 minutes. -You may shower, but do not soak in a bathtub, hot tub, pool, haji, etc until after the wound has healed. -DO NOT USE NEOSPORIN OR BACITRACIN as there is a fairly high incidence of allergic response to these products. -You may experience some mild discomfort, redness, swelling, and/or a clear discharge from the wound after your procedure. Severe pain, worsening swelling, and foul-smelling discharge from the site are NOT to be expected. If you have concerns about how your wounds are healing, please send your provider a [email or web address] message or call . documented in this encounterBlanchard Valley [facility]08-18-2023 History of Present illness Narrative* Suyapa Peraza PA-C - 04/16/2023 10:45 AM EDT NEW PATIENT Chief Complaint: Patient presents with: LESION, SKIN HPI: Justine Bergeron is a 52 year old female who presents today for:Patient presents with: LESION, SKIN #1 Lesion Location: scalp Duration: 1 year Symptoms: mild bump has grown bigger and softer Current Treatment: none Past Treatment: none #2 Lesion Location: left lower leg Duration: 3-4 years Symptoms: none Current Treatment: none Past Treatment: none #3 Lesion Right jaw x years Tried to remove it herself, it grew back [place], occasionally bleeds Pertinent History: History of skin cancer or atypical nevi: No Family history of skin cancer: Yes - maternal great uncle, melanoma Organ transplant or immunosuppression: No or : No Past Medical History is reviewed. Medication List is reviewed. ROS: Skin as above. Physical Exam: Guardado skin type: II The patient is a pleasant female in no apparent distress. Alert and oriented x 3. A skin exam performed of the scalp and left lower leg is significant for: Right Anterior Mandible 0.5 x 0.5 cm pink papule with TLGs Left Lower Leg - Anterior Firm brown papule that dimples with lateral pressure. Scalp Stuck-on verrucous, variably pigmented papules and plaques throughout trunk and extremities. Assessment and Plan: Neoplasm of unspecified behavior of bone, soft tissue, and skin Right Anterior Mandible SKIN / NAIL BIOPSY Type of biopsy: tangential Informed consent: discussed and consent obtained Informed consent comment: Verbal Timeout: patient name, date of , surgical site, and procedure verified Procedure prep: Patient was prepped and draped in usual sterile fashion Prep type: Isopropyl alcohol Anesthesia: the lesion was anesthetized in a standard fashion Anesthetic: 1% lidocaine w/ epinephrine 1-100,000 local infiltration Instrument used: DermaBlade Hemostasis achieved with: aluminum chloride Outcome: patient tolerated procedure well Post-procedure details: sterile dressing applied and wound care instructions given Dressing type: petrolatum and bandage Specimen A - SURGICAL PATHOLOGY SKIN ONLY Rule out BCC Dermatofibroma Left Lower Leg - Anterior Discussed etiology, educated and reassured of benign nature. Seborrheic keratoses Scalp Discussed etiology, educated and reassured of benign nature. The nature of sun-induced photo-aging and skin cancers is discussed including the ABCDE's of melanoma. Sun avoidance, protective clothing, and the use of SPF 30+ sunscreens is advised. Patient is instructed to perform regular self skin exams. Observe for changing, symptomatic, or new skin lesions and return to dermatology if any lesions of concern are noted. Follow up as noted in plan or as needed. Intake: Nikki Moreno LPN I have reviewed and agree with the Chief Complaint, patient-reported HPI, ROS, and Past Histories independently gathered by the clinical retail support associate and the remaining scribed note accurately describes my personal service to the patient. Suyapa Peraza MS, PAMir documented in this encounterBlanchard Valley [facility]08-07-2023 Miscellaneous Notes* Telephone Encounter - Almaz Worley - 04/05/2023 9:13 AM EDT Call from patient requesting refill. Requested Prescriptions Pending Prescriptions Disp Refills verapamil SR (CALAN SR) 120 mg CR tablet 90 tablet 1 Sig: Take 1 tablet by mouth once daily. Patient last seen: 10/14/2022 Almaz Worley documented in this encounterBlanchard Valley [facility] System06-27-2023 History of Present illness Narrative* Samantha Butler MD - 02/23/2023 8:27 AM EDT Images from the original note were not included. Rheumatology Outpatient Clinic Date of Service: 02/23/2023 Patient: Justine Bergeron Medical Record: [id number] Primary Care Physician: Domonique Guzman MD Last Rheumatology visit: 07/02/2022 (with Samantha Butler) Referring Provider: Maryam Emmanuel [address] [place] [id number] Consultation requested by Maryam Emmanuel for an opinion regarding hand pain. My final recommendationswill be communicated back to the requesting physician by way of shared Medical record or letter to requesting physician via US mail. History of Present Illness Justine Bergeron is a 51 year old White female who presents on 02/23/2023 for an in-person visit for evaluation of hand pain. Justine is both RF - 9 (12/30/2020) and CCP - 13.5 (12/30/2020) negative. Her most recent was positive (12/30/2020). 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 Also has pain in the base of her thumbs and some DIP pain occasionally Hard to open things Stiff in the AM for about 15-20 minutes Has noticed swelling in R DIP but in no other joints Pain is worse with activity Initially used to take advil which did not seem to help her pain. Takes tylenol 1000 mg BID which is helping her. Has tried voltaren gel for her elbows but did not helped Had tried to cut out sugar and meat which has helped her joint pain after doing it for a while. She feels he has pain all over for years and has been diagnosed with fibromyalgia. HAs tried flexeril for her back which helped her, but she has not taken it in several weeks. Has been seen in the past by rheumatology in 12/2020-SSA Ab + Has lost weight intentionally Does yoga and toning exercises which has helped her back. She feels she has suddenly felt some increasing pain all over Sleep is Terrible Has been having some left sided hip pain-lateral aspect, some pain No major stressors otherwise Getting injections for her low back pain-has improved She is also having hot flashes She endorses having chest pain, worse with movement, reproducible Was having epigastric pain which has improved. Has been taking pepcid which has helped her somewhat. She passed out at work and her HR was noted to be elevated which then prompted cardiac workup Has long standing Raynaud's for 7-8 years, worse since last few weeks, Has noticed bright red and warm sensation in her palms and feet, also noticed erythema in nose No digital ulcers. 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 training Grandmother had debilitating/deforming arthritis Interval Hx: -She reports that she is doing well from hand pain standpoint -She is sleeping better and feels her hand pain has improved She is taking flexeril 5/7 night and it helps her -Raynaud's is doing much better once her metoprolol was switched to verapamil -Has gained 10 lbs since last visit, has some bouts of fatigue lasting for days -had it last week, she is also perimenopausal Patient-Entered Data PAIN EVALUATION 02/22/2023 2319 02/23/2023 0815 Pain Level: 3 3 Pain Location: Back-Lower -- Back pain Description: Aching;Cramping;Shooting Aching;Throbbing Duration Units: Days -- Frequency: Intermittent Intermittent Intervention/Comfort measure: Medication;Reposition;Relaxation;Exercise;Heat;Pillow support -- PROMIS Assessments PROMIS Assessments 04/15/2022 07/01/2022 02/22/2023 Physical Health Percentile 2 % 4 % 15 % Mental Health Percentile 13 % 3 % 19 % Pain Score 3 3 4 Pain Interference Percentile - 8 % 21 % Fatigue Percentile - 4 % 5 % Physical Function Percentile - 7 % 12 % RAPID 3 [place] Activities of Daily Living 02/22/2023 11:27 PM 07/01/2022 6:04 PM 01/27/2022 7:56 PM Firstanswer obtained - 12/28/2020 11:12 PM Dress self? Without ANY difficulty With SOME difficulty With SOME difficulty With SOME difficulty Get in and out of bed? With SOME difficulty With SOME difficulty With SOME difficulty Walk outdoors? Without ANY difficulty With SOME difficulty With MUCH difficulty With SOME difficulty Wash and dry body? Without ANY difficulty With SOME difficulty With SOME difficulty With SOME difficulty Get in and out of car? With SOME difficulty With SOME difficulty With MUCH difficulty With MUCH difficulty RAPID 3 Disease Activity Weighed Score Levels: 0 - 1: Near Remission 1.3 - 2.0: Low Severity 2.3 - 4.0: Moderate Severity 4.3 - 10.0: High Severity RAPID-3 Weighed Score 01/27/2022 07/01/2022 02/22/2023 RAPID 3 Weighed Score 6.39 (High Severity (HS)) 4.78 (High Severity (HS)) 2.83 (Moderate Severity (MS)) Review of Systems Review of Systems CONSTITUTION: Negative for: Fever and Recent weight change HEENT: Negative for: Nosebleeds, Mouth sores, Trouble swallowing and Dry mouth RESPIRATORY: Negative for: Cough, Shortness of breath and Pain with breathing GASTROINTESTINAL: Positive for: Heartburn Negative for: Melena, Diarrhea and Abdominal pain MUSCULOSKELETAL: Positive for: Arthralgias, Myalgias, Muscle weakness, Joint swelling and Morning Joint Stiffness NEUROLOGICAL: Positive for: Headaches, Numbness (random episodes in left hand and left leg-occasional, not persistent) and Memory loss SKIN: Positive for: Nail changes (brittle) Negative for: Rash, Sun Sensitive Rash, Skin changes andHair loss EYES: Positive for: Eye dryness (3 times a week) Negative for: Eye pain, Eye redness and visual disturbance CARDIOVASCULAR: Positive for: Leg swelling Negative for: Chest pain GENITOURINARY: Negative for: Dysuria and Hematuria HEMATOLOGIC/LYMPHATIC: Negative for: Swollen glands All other reviewed and negative other than HPI. Past Medical History PAST MEDICAL HISTORY Diagnosis Date Anemia treated with iron in past Arthritis Displacement of intervertebral disc, site unspecified, without myelopathy cervical and lower back Family history of early CAD Fibromyalgia Heart murmur Mammographic microcalcification Mitral valve disorders(424.0) MVP MVP (mitral valve prolapse) 11/06/2010 Near syncope Other and unspecified hyperlipidemia 2019 told high age 22 on RX on and off in past Seizure (HCC) pt told absent seizure' during dental appointment no workup Past Surgical History PAST SURGICAL HISTORY Procedure Laterality Date DELIVERY ONLY , low cervical COLONOSCOPY FLX DX W/COLLJ SPEC WHEN PFRMD 03/18/2021 ESOPHAGOGASTRODUODENOSCOPY TRANSORAL DIAGNOSTIC 06/15/2013 EGD ESOPHAGOGASTRODUODENOSCOPY TRANSORAL DIAGNOSTIC 03/18/2021 EYE SURGERY HX PAST SURGICAL HISTORY OF urethra stretching age 2 PAST SURGICAL HISTORY OF D&C PAST SURGICAL HISTORY OF wisdom teeth RPR UMBILICAL HERNIA < 5 YRS REDUCIBLE 2000 Hernia repair, umbilical <5yr Family History FAMILY HISTORY Problem Relation Age of Onset Hypertension Mother Diabetes Mother Stroke Mother 62 carotid disease other (CABG) Mother 67 Heart Father 64 PA coronary stent Heart Brother 37 PA 3 stents Hypertension Brother other (Hemophelia) Brother Uterine Fibroids Brother Hypertension Maternal Grandmother other (Myocardial infarction) Maternal Grandfather 54 Diabetes Maternal Grandfather Breast Cancer Paternal Grandmother other (Myocardidal infarction) Paternal Grandmother 80 3 stents other (brain bleeding) Paternal Grandmother other (cousins) Other Mi' age 41-42 Maternal Social History Social History Tobacco Use Smoking status: Never Smokeless tobacco: Never Vaping Use Vaping Use: Never used Substance Use Topics Alcohol use: Yes Comment: 1-2 wine or beer a week Drug use: No Current Medications Current Outpatient Medications Medication Sig rosuvastatin (CRESTOR) 10 mg tablet Take 1 tablet by mouth daily at bedtime. metoprolol succinate ER (TOPROL XL) 50 mg 24 hr tablet Take 1 tablet by mouth once daily. verapamil SR (CALAN SR) 120 mg CR tablet Take 1 tablet by mouth once daily. cyclobenzaprine (FLEXERIL) 5 mg tablet Take 1 tablet by mouth daily at bedtime. Take 5 mg at bedtime. Gradually increase to three times a day as tolerated aspirin 81 mg cap Take 81 mg by mouth once daily. multivitamin (MULTIPLE VITAMINS ORAL) Take by mouth. famotidine (PEPCID) 20 mg tablet Take 1 tablet by mouth twice daily. Cholecalciferol, Vitamin D3, 2,000 unit cap Take 2 capsules by mouth once daily. (Patient taking differently: Take 2,000 Units by mouth once daily.) No current facility-administered medications for this visit. Labs CBC Latest Ref Rng & Units 12/20/2019 01/29/2022 05/13/2022 02/19/2023 WBC 3.70 - 11.00 k/uL 5.00 6.75 4.78 5.61 HEMOGLOBIN 11.5 - 15.5 g/dL 12.4 12.3 12.0 12.2 HEMOGLOBIN, BETHANY 11.5 - 15.5 g/dL - - - - HEMATOCRIT 36.0 - 46.0 % 37.8 37.7 36.1 36.8 PLATELETS 150 - 400 k/uL 264 251 261 237 ABS NEUT (ANC) 1.45 - 7.50 k/uL - 4.09 2.09 2.77 ABS NEUT, BETHANY 1.45 - 7.50 k/uL - - - - ABS LYMP, BETHANY 1.00 - 4.00 k/uL - - - - ABS LYMPH 1.00 - 4.00 k/uL - 1.80 1.97 2.09 CMP Latest Ref Rng & Units 08/21/2021 05/13/2022 10/12/2022 02/19/2023 SODIUM 136 - 144 mmol/L 142 138 139 141 SODIUM, BETHANY 132 - 148 mmol/L - - - - SODIUM, BETHANY 132 - 148 mmol/L - - - - POTASSIUM 3.7 - 5.1 mmol/L 4.2 4.1 4.1 4.3 POTASSIUM, BETHANY 3.5 - 5.0 mmol/L - - - - CHLORIDE 97 - 105 mmol/L 104 106(H) 102 104 CHLORIDE, BETHANY 98 - 110 mmol/L - - - - CO2 22 - 30 mmol/L 27 23 27 27 CO2, BETHANY 23.0 - 32.0 mmol/L - - - - GLUCOSE 74 - 99 mg/dL 94 92 92 84 GLUCOSE (U), BETHANY NEGAT mg/dL - - - - GLUCOSE, BETHANY 65 - 100 mg/dL - - - - BUN 7 - 21 mg/dL 14 13 15 15 BUN, BETHANY 10 - 25 mg/dL - - - - CREATININE 0.58 - 0.96 mg/dL 0.66 0.62 0.65 0.66 CREATININE, BETHANY 0.7 - 1.4 mg/dL - - - - CALCIUM, BETHANY 8.5 - 10.5 mg/dL - - - - CALCIUM, TOTAL 8.5 - 10.2 mg/dL 9.3 9.6 9.3 9.1 AST 13 - 35 U/L 24 16 31 24 AST, BETHANY 7 - 40 U/L - - - - ALT 7 - 38 U/L 11 7 19 12 ALT, BETHANY 0 - 45 U/L - - - - ALKALINE PHOSPHATASE 34 - 123 U/L 38 35 42 38 Uric Acid Latest Ref Rng & Units 05/18/2013 URIC ACID 2.0 - 7.0 mg/dL 2.6 ESR, WSR Latest Ref Rng & Units 03/17/2013 05/16/2019 12/20/2019 12/12/2021 WSR 0 - 20 mm/hr 13 26(H) 5 5 SED RATE, BETHANY 0 - 20 mm/hr - - - - CRP Latest Ref Rng & Units 03/17/2013 05/16/2019 12/20/2019 12/12/2021 CRP <0.9 mg/dL 0.1 1.1(H) 0.1 <0.3 C3, C4 Latest Ref Rng & Units 12/30/2020 01/29/2022 02/19/2023 C3 86 - 166 mg/dL 121 121 119 C4 13 - 46 mg/dL 27 29 27 CK Latest Ref Rng & Units 03/17/2013 06/16/2013 CK 30 - 220 U/L 39 58 RF and CCP Latest Ref Rng & Units 05/18/2013 12/20/2019 12/30/2020 RHEUMATOID FACTOR <16 IU/mL <7 <10 <10 CCP ANTIBODY, IGG <20 Units - - <15 Hepatitis Screen Latest Ref Rng & Units 08/24/2018 HEPBCOTOL Negative Negative HEPSABQ Negative Negative HEPCABEIA Negative Negative HBSAGR Negative Negative Antibodies Latest Ref Rng & Units 12/05/2020 12/30/2020 01/29/2022 07/02/2022 Negative - Negative - - BY EIA OD Ratio 3.5 - - - BY EIA, QUAL Negative Positive(A) - - - TITER Negative - Negative - - PATTERN - - Not applicable for negative result. - - DNA ANTIBODY W/CONFIRMATION <30 IU/mL - <12 <12 - SM ANTIBODY <1.0 AI - <0.2 - - RIBOSOMAL EDGE GRINDER MACHINE <1.0 AI - <0.2 - - CHROMATIN ANTIBODY <1.0 AI - <0.2 - - SSA ANTIBODY <1.0 AI - 0.2 - - SSB ANTIBODY <1.0 AI - 1.3(H) - - EDGE GRINDER MACHINE ANTIBODY <1.0 AI - <0.2 - - SCLERODERMA AB, IGG <1.0 AI - <0.2 - - CENTROMERE AB <1.0 AI - <0.2 - - CORINNE-1 ANTIBODY, IGG <1.0 AI - <0.2 - - PA-2 ANTIBODY Negative - - - Negative PL-7 ANTIBODY Negative - - - Negative PL-12 ANTIBODY Negative - - - Negative P155/140 ANTIBODY Negative - - - Negative EJ ANTIBODY Negative - - - Negative SRP ANTIBODY Negative - - - Negative OJ ANTIBODY Negative - - - Negative SAE1 ANTIBODY Negative - - - Negative NXP-2 ANTIBODY Negative - - - Negative MDA5 ANTIBODY Negative - - - Negative TIF-1 GAMMA ANTIBODY Negative - - - Negative ANCA Latest Ref Rng & Units 12/30/2020 MYELOPEROXIDASE ANTIBODY (MPO) <1.0 AI Test not performed on samples negative by immunofluorescence. PROTEINASE-3 ANTIBODY <1.0 AI Test not performed on samples negative by immunofluorescence. P-ANCA FLUORESCENCE Negative Negative C-ANCA FLUORESCENCE Negative Negative PANCA <1.0 AI Test not performed on samples negative by immunofluorescence. CANCA <1.0 AI Test not performed on samples negative by immunofluorescence. Urinalysis Latest Ref Rng & Units 10/21/2020 12/30/2020 01/29/2022 02/19/2023 PROTEIN, URINE Trace, Negative Negative Negative Negative Negative PROTEIN (U), BETHANY NEGAT mg/dL - - - - PROTEIN UA (POCT) Neg mg/dL - - - - RBC, URINE 0-3 /HPF 0-3 0-3 3-5 /HPF(A) 0-3 /HPF RBC, URINE, BETHANY /hpf - - - - PROTEIN/CREATININE RATIO <0.2 - 0.1 - - Imaging Last XR Hand/Finger - Impression Only XR HAND GENERAL 3V PA/LAT/OBL BILATERAL Exam End: 01/29/2022 11:36 AM (Final result) Impression: IMPRESSION: MILD DEGENERATIVE CHANGE Wire Brusher: LESLIE Transcribe Date/Time: Jan 29 2022 12:07P Dictated by : ELISA PHAN MD... Last XR Chest - Impression Only XR CHEST 2V FRONTAL/LAT Exam End: 05/16/2019 3:37 PM (Final result) Impression: IMPRESSION: No acute radiographic abnormality. Wire Brusher: LESLIE Trammell. Last XR Cervical Spine - Impression Only XR CERVICAL AP/LAT/OBL Collected: 11/20/2011 5:13 PM (Final result) Health Maintenance Current Immunizations Reviewed on 02/23/2023 Name Date COVID-19 vaccine, monovalent ([employer]) 11/16/2020 , 10/26/2020 TETANUS DIPHTHERIA (TD) 10/20/2007 tetanus diphtheria (Td) vaccine 04/22/2022 Physical Exam BP 132/67 Pulse 70 Temp 37.2 C (98.9 F) (Temporal) Ht 149.9 cm (4' 11) Wt 64.4 kg (142 lb) LMP 07/06/2021 SpO2 100% BMI 28.68 kg/m GENERAL: Well appearing, sitting in chair, in NAD. HEENT: EOMI, no scleral icterus, oropharynx clear NECK: No cervical LAD, or thyromegaly. CV: Normal rate, regular rhythm PULM: Normal WOB and RR on RA. EXT: No edema. SKIN: Warm, dry, no significant rashes, no significant bruising.dry skin with fissures in right hand NEURO: AOx3. Mental status and speech normal. Nonfocal Gait: Normal PSYCH: Pleasant mood, appropriate affect. MSK: Hypermobile joints Shoulders: Intact ROM without reported pain. Elbows: No flexion contractures. No appreciable swelling, deformities Wrists: No limitation of flexion or extension. No appreciable swelling or tenderness with palpation. No ulnar deviation or joint laxity. Hands: No evidence of synovitis or tenderness with palpation. Able to make full fist bilaterally. Heberden's nodes present, +right thumb with inability to extend thumb Knees: No gross deformity. No appreciable effusion. No tenderness with palpation of joint lines. Nojoint laxity and intact ROM. L knee hyperextensible Ankles: No limitation of plantarflexion or dorsiflexion. No appreciable effusion. No tenderness with palpation. Feet: No evidence of synovitis or tenderness with palpation. Impression and Plan (R76.8) Positive (antinuclear antibody) (primary encounter diagnosis) (M65.311) Trigger thumb of right hand (I73.00) Raynaud's phenomenon without gangrene (M24.9) Hypermobile joints (M25.50) Pain in joint, multiple sites + , SSB Sicca symptoms, polyarthralgia Symptoms of joint pain are likely combination of mechanical changes, hypermobility, low suspicion for inflammatory arthritis at present although will continue monitoring Noted to have ?mechanics hands -denies any SOB Some improvement with flexeril Improvement in Raynaud's as well since stopping metoprolol Reviewed labs Plan: Continue monitoring at present Annual visit #Trigger finger: R thumb involvement Not bothering her at present Continue to monitor Samantha Butler MD Rheumatology documented [facility] History of Present illness Narrative* Maryam Emmanuel, JOHN.GENERAL MAINTENANCE HELPER - 01/11/2023 12:55 PM EDT SUBJECTIVE: COVID-19 VACCINE(3 - Booster for Pfizer series) due on 01/11/2021 PAP TESTING due on 01/14/2022 HPV TESTING due on 01/14/2022 DTAP,TDAP,TD(1 - Tdap) due on 04/23/2022 DEPRESSION ASSESSMENT Never done HPI Justine Bergeron is a 52 year old female. ACTIVE PROBLEM LIST Cervicalgia Family History of Ischemic Heart Disease History of Myositis Lumbago Hyperlipidemia Atypical Chest Pain Raynaud's Phenomenon Without Gangrene Lumbar Disc Herniation Annular Tear of Lumbar Disc Review of Systems Constitutional: Negative. Musculoskeletal: Positive for arthralgias. HPI excerpted from previous visit: Presents today for emergency department follow-up [facility]. She reported history of mitral valve prolapse and elevated cholesterol. No prior history of cardiac disease, DVT PE. No recent travel surgery or immobilization. She reported chest pain on the left side described as discomfort on the day prior to admissionwhich became more diffuse and present on both side of her chest when seen in the emergency department. Increased with movement. Not associated with exertion. Vital signs in ER were stable. Pulse ox 100% on room air. Exam was unremarkable. Chest wall was nontender on palpation as was abdomen. Neurolo gically intact, no motor deficits. Troponin was negative. Heart score in ER was 1. Chest x-ray negative for acute process. EKG showed normal sinus rhythm with no ectopy or ST or T wave changes.Impression was atypical chest pain and mitral valve prolapse. Today she notes discomfort continues. Notes improved since she was seen in the emergency department. Notes bilateral anterior chest wall discomfort. Achey and sharp across her left and right chest wall to bilateral axilla. Notes taking advil, does not seem to help. 400mg QD. Was taking BID. Notes worse with deep breathing. Notes heat seems to help. No known history of asthma. No associated symptoms. No recent illness or fever. No cough. She states concern regarding possible inflammation throughout her body, she notes left heel, bilateral knee and both hands with joint pain, chronic but seem worse currently. Pain everywhere. Was seen by rheumatology about 1 year ago and noted fibromyalgia. She notes chest pain associated with deep breathing or movement; not associated with walking or taking stairs. No change in functional capacity. No limits in taking stairs or walking a flat surface. History of MVP on chart review however had echocardiogram completed 2020 at which showed no significant valvular disease. Notes had maintained hydration on date seen in ER. No smoking. Not hypertensive. No hyperlipidemia. Notes her brother had premature heart disease, PA / CAD age 37 years. Previously seen by Dr. Pascal and Dr. Hansen for atypical chest pain. Continues with metoprolol succinate 50 mg once daily, rosuvastatin 10 mg once daily. Notes chronic /HB reflux for which she is taking famotidine twice daily. Not controlling as well asit used to currently. No report of nausea vomiting diarrhea constipation BRBPR black or tarry stools. Today notes shoulder ROM is reduced. She reports this started on Wednesday. Reports she has been doing yoga about 2 weeks ago. Noted discomfort in her shoulder at that time that resolved same day. Continues to do yoga. Duration: 2 days Character: Constant achy at rest, sharp at times with movement such as raising her arm or reaching behind her back. Injury: none report Alleviate: less movement Aggravate: movement [id number]: tylenol helps somewhat. Has applied ice and heat both which have helped. Avoids NSAIDs due to cardiology recommendation. Notes flexeril seems to help, taking at bedtime. Objective BP 122/70 Pulse 68 Resp 16 Wt 64 kg (141 lb) LMP 07/06/2021 BMI 28.48 kg/m Physical Exam Vitals and nursing note reviewed. Constitutional: Appearance: Normal appearance. HENT: Head: Normocephalic and atraumatic. Eyes: Conjunctiva/sclera: Conjunctivae normal. Neck: Thyroid: No thyroid mass or thyromegaly. Vascular: Normal carotid pulses. No carotid bruit or JVD. Cardiovascular: Rate and Rhythm: Normal rate and regular rhythm. Pulses: Carotid pulses are 2+ on the right side and 2+ on the left side. Radial pulses are 2+ on the right side and 2+ on the left side. Heart sounds: Normal heart sounds. Pulmonary: Effort: Pulmonary effort is normal. Breath sounds: Normal breath sounds. Abdominal: General: Bowel sounds are normal. Palpations: Abdomen is soft. Musculoskeletal: Right shoulder: Tenderness present. No swelling, deformity, effusion or crepitus. Decreased range of motion. Normal pulse. Skin: General: Skin is warm and dry. Neurological: General: No focal deficit present. Mental Status: She is alert and oriented to person, place, and time. ALLERGIES Allergen Reactions Levaquin [Levofloxa* Other: See Comments Numbness, palpitations Aleve [Naproxen Sod* Other: See Comments BP elevation Codeine GI Upset Heart pounding Epinephrine Other: See Comments Heart races. Heart palpitations. MEDICATIONS rosuvastatin (CRESTOR) 10 mg tablet Take 1 tablet by mouth daily at bedtime. metoprolol succinate ER (TOPROL XL) 50 mg 24 hr tablet Take 1 tablet by mouth once daily. verapamil SR (CALAN SR) 120 mg CR tablet Take 1 tablet by mouth once daily. cyclobenzaprine (FLEXERIL) 5 mg tablet Take 1 tablet by mouth daily at bedtime. Take 5 mg at bedtime. Gradually increase to three times a day as tolerated aspirin 81 mg cap Take 81 mg by mouth once daily. multivitamin (MULTIPLE VITAMINS ORAL) Take by mouth. famotidine (PEPCID) 20 mg tablet Take 1 tablet by mouth twice daily. Cholecalciferol, Vitamin D3, 2,000 unit cap Take 2 capsules by mouth once daily. (Patient taking differently: Take 2,000 Units by mouth once daily.) MULTIVITAMIN ORAL Take 1 tablet by mouth once daily. (Patient not taking: Reported on 01/11/2023) PAST MEDICAL HISTORY Diagnosis Date Anemia treated with iron in past Arthritis Displacement of intervertebral disc, site unspecified, without myelopathy cervical and lower back Family history of early CAD Fibromyalgia Heart murmur Mammographic microcalcification Mitral valve disorders(424.0) MVP MVP (mitral valve prolapse) 11/06/2010 Near syncope Other and unspecified hyperlipidemia 2019 told high age 22 on RX on and off in past Seizure (HCC) pt told absent seizure' during dental appointment no workup Social History Tobacco Use Smoking status: Never Smokeless tobacco: Never Vaping Use Vaping Use: Never used Substance Use Topics Alcohol use: Yes Comment: 1-2 wine or beer a week Drug use: No ASSESSMENT/PLAN: 1. Acute pain of right shoulder - ICD9: 719.41, ICD10: M25.511 She notes right shoulder pain, worse with certain movements, has been completing yoga. Notes on exam tenderness in the lateral aspect of her bicep. Decreased range of motion right shoulder. Possible tendinitis. Defers NSAIDs due to report of cardiology recommendation to avoid. Continue with Tylenolfor now. Continue with Flexeril at bedtime. Consider prednisone if not improving. Avoid painful activities, gentle range of motion. Apply 3-4 times per day for 15 to 20 minutes. If not feeling betterin the next few days would recommend x-ray and orthopedic visit. - XR SHOULDER GENERAL 3V OR MORE AP/TRUE AP/OTHER RIGHT - CONSULT TO ORTHOPAEDICS Maryam Emmanuel APRN.CNS Medical Decision Making: Problems: Low: Acute, uncomplicated illness or injury Data: Unique test(s) ordered: 1 Risk: Low: Low risk from testing/treatment Moderate: Drug management Medical Decision Making Level: 3 - Low documented in this encounterBl[facility]02-15-2023 History of Present illness Narrative* Jimmy Quintana MD - 10/14/2022 1:25 PM EST Images from the original note were not included. Heart, V[facility] Thor[facility] [place] [facility] Department of Cardiovascular Medicine SECTION OF INTERVENTIONAL CARDIOLOGY OUTPATIENT VISIT DATE October 14, 2022 OUTPATIENT VISIT TYPE ESTABLISHED PRIMARY CARE PHYSICIAN: Domonique Guzman [address] [place] [address] REFERRING PHYSICIAN: Jimmy Quintana [address] [facility] [id number] CHIEF COMPLAINT: No chief complaint on file. HISTORY OF PRESENT ILLNESS: Ms. Bergeron is a 52 year old female who presents today for follow-up visit . She denies PAST CARDIAC HISTORY: See HPI PAST MEDICAL HISTORY Diagnosis Date Anemia treated with iron in past Arthritis Displacement of intervertebral disc, site unspecified, without myelopathy cervical and lower back Family history of early CAD Fibromyalgia Heart murmur Mammographic microcalcification Mitral valve disorders(424.0) MVP MVP (mitral valve prolapse) 11/06/2010 Near syncope Other and unspecified hyperlipidemia 2019 told high age 22 on RX on and off in past Seizure (HCC) pt told absent seizure' during dental appointment no workup PAST SURGICAL HISTORY Procedure Laterality Date DELIVERY ONLY , low cervical COLONOSCOPY FLX DX W/COLLJ SPEC WHEN PFRMD 03/18/2021 ESOPHAGOGASTRODUODENOSCOPY TRANSORAL DIAGNOSTIC 06/15/2013 EGD ESOPHAGOGASTRODUODENOSCOPY TRANSORAL DIAGNOSTIC 03/18/2021 EYE SURGERY HX PAST SURGICAL HISTORY OF urethra stretching age 2 PAST SURGICAL HISTORY OF D&C PAST SURGICAL HISTORY OF wisdom teeth RPR UMBILICAL HERNIA < 5 YRS REDUCIBLE 2001 Hernia repair, umbilical <5yr SOCIAL HISTORY Social History Tobacco Use Smoking status: Never Smokeless tobacco: Never Vaping Use Vaping Use: Never used Substance Use Topics Alcohol use: Yes Comment: 1-2 wine or beer a week Drug use: No FAMILY HISTORY Problem Relation Age of Onset Hypertension Mother Diabetes Mother Stroke Mother 62 carotid disease other (CABG) Mother 67 Heart Father 64 PA coronary stent Heart Brother 37 PA 3 stents Hypertension Brother other (Hemophelia) Brother Uterine Fibroids Brother Hypertension Maternal Grandmother other (Myocardial infarction) Maternal Grandfather 54 Diabetes Maternal Grandfather Breast Cancer Paternal Grandmother other (Myocardidal infarction) Paternal Grandmother 80 3 stents other (brain bleeding) Paternal Grandmother other (cousins) Other Mi' age 41-42 Maternal ALLERGIES: ALLERGIES Allergen Reactions Levaquin [Levofloxa* Other: See Comments Numbness, palpitations Aleve [Naproxen Sod* Other: See Comments BP elevation Codeine GI Upset Heart pounding Epinephrine Other: See Comments Heart races. Heart palpitations. MEDICATIONS: Current Outpatient Medications Medication Sig MULTIVITAMIN ORAL Take 1 tablet by mouth once daily. metoprolol succinate ER (TOPROL XL) 100 mg Take 1 tablet by mouth once daily. cyclobenzaprine (FLEXERIL) 5 mg tablet Take 1 tablet by mouth daily at bedtime. Take 5 mg at bedtime. Gradually increase to three times a day as tolerated aspirin 81 mg cap Take 81 mg by mouth once daily. multivitamin (MULTIPLE VITAMINS ORAL) Take by mouth. rosuvastatin (CRESTOR) 10 mg tablet Take 1 tablet by mouth daily at bedtime. famotidine (PEPCID) 20 mg tablet Take 1 tablet by mouth twice daily. Cholecalciferol, Vitamin D3, 2,000 unit cap Take 2 capsules by mouth once daily. (Patient taking differently: Take 2,000 Units by mouth once daily.) metoprolol succinate ER (TOPROL XL) 50 mg 24 hr tablet Take 1 tablet by mouth once daily. acetaminophen/diphenhydramine (TYLENOL PM ORAL) Take by mouth. No current facility-administered medications for this visit. REVIEW OF SYSTEMS: PHYSICAL EXAMINATION: BP 133/82 Pulse 59 Ht 4' 11 (1.50m) Wt 134 lb (60.8kg) SpO2 100% LMP 07/06/2021 BMI 27.05 kg/(m^2). CARDIOVASCULAR MEDICINE TESTING: Last CT Result Conclusion CTA CORONARY W IVCON Exam End: 01/14/2022 3:25 PM (Final result) Impression: IMPRESSION: Normal coronary artery anatomy with scattered calcified atherosclerotic plaques in the LAD and RCA. Possibly up to 50% luminal narrowing in mid LAD at the site of a calcified plaque although this is associated calcium blooming artifact. Otherwise no significant luminal narrowing. Calcium blooming artifact limits luminal stenosis assessment and may overestimate severity of stenosis. However, significant stenosis in these segments cannot be excluded. Correlation with functional stress test results is recommended. Wire Brusher: LESLIE Transcribe Date/Time: Jan 14 2022 3:32P Dictated by : MICHAEL CRUZ, This examination was interpreted and the report reviewed and electronically signed by: RENETTA LI MD on Jan 14 2022 6:40PM EST IMPRESSION: Ms. Bergeron is a 52 year old female last seen 02/18 Palp x 20 yrs, often break w cough, neg Holter; normal TTE + fm h/o early CAD occ noctural or pleurtic c/p Thinks she may be [place]- red and hot hands and feet x 30 min -> drenching sweat recently Raynaud's seroneg arthritis ? Fibromyalgia Hb 13.0 Cr 0.7 CRP <0.3 LDL 74 zio 01/18 4 short bursts of SVT CTA 50% mid LAD only 01/18, in general has felt better. Still gets fleeting left and right ant c/p PLAN AND RECOMMENDATIONS: incr crestor from 5->10 and check labs in 2 mos try toprol 100 to see if she feels better (mentioned ablation as back up if meds fail) see rheum -> fibromyalgia and OA call in 2 mos today toprol 100 asa crestor 133/82 59 134 Tired x 3 mos, several episodes of presyncope preceded by palp SSCP sore to touch Also sharp random lightning bolt c/p Worried about risk of PA d/t fm hx PE lungs-CTA Cor- RR Extr- no edema PLAN AND RECOMMENDATIONS: try toprol 50+ verapamil call in a month fall back- refer to EP CONTACT INFORMATION: documented in this [facility]Bl[facility] History of Present illness Narrative* Samantha Butler MD - 07/02/2022 11:02 AM EDT Images from the original note were not included. Rheumatology Outpatient Clinic Date of Service: 07/02/2022 Patient: Justine Bergeron Medical Record: [id number] Primary Care Physician: Domonique Guzman MD Last Rheumatology visit: 01/29/2022 (with Samantha Butler) Referring Provider: Maryam Emmanuel [address] [facility] [address] Consultation requested by Maryam Emmanuel for an opinion regarding hand pain. My final recommendationswill be communicated back to the requesting physician by way of shared Medical record or letter to requesting physician via US mail. History of Present Illness Justine Bergeron is a 51 year old White female who presents on 07/02/2022 for an in-person visit for evaluation of hand pain. Justine is both RF - 9 (12/30/2020) and CCP - 13.5 (12/30/2020) negative. Her most recent was positive (12/30/2020). 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 Also has pain in the base of her thumbs and some DIP pain occasionally Hard to open things Stiff in the AM for about 15-20 minutes Has noticed swelling in R DIP but in no other joints Pain is worse with activity Initially used to take advil which did not seem to help her pain. Takes tylenol 1000 mg BID which is helping her. Has tried voltaren gel for her elbows but did not helped Had tried to cut out sugar and meat which has helped her joint pain after doing it for a while. She feels he has pain all over for years and has been diagnosed with fibromyalgia. HAs tried flexeril for her back which helped her, but she has not taken it in several weeks. Has been seen in the past by rheumatology in 12/2020-SSA Ab + Has lost weight intentionally Does yoga and toning exercises which has helped her back. She feels she has suddenly felt some increasing pain all over Sleep is Terrible Has been having some left sided hip pain-lateral aspect, some pain No major stressors otherwise Getting injections for her low back pain-has improved She is also having hot flashes She endorses having chest pain, worse with movement, reproducible Was having epigastric pain which has improved. Has been taking pepcid which has helped her somewhat. She passed out at work and her HR was noted to be elevated which then prompted cardiac workup Has long standing Raynaud's for 7-8 years, worse since last few weeks, Has noticed bright red and warm sensation in her palms and feet, also noticed erythema in nose No digital ulcers. 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 training Grandmother had debilitating/deforming arthritis Interval Hx: -During spring and summer months, she was doing well -She has been noticing some hormonal changes and feels more achy since it is colder and her diet has included more carbs-nisha and alcohol does make some of her symptoms ar worse -Raynaud's is an issue with colder weather-involves her hands, worse in R>L, couple times a day,did get electronic hand warmers but not using as frequently; no digital ulcers Some worsening after she has been put on metoprolol -Taking flexeril at bedtime which she thinks is helping her with her back especially -Has occasional hand pain in her thumb IP joint and DIP joints Patient-Entered Data PAIN EVALUATION 07/02/2022 1058 Pain Level: 2 Duration Units: Unknown Frequency: Continuous PROMIS Assessments PROMIS Assessments 01/27/2022 04/15/2022 07/01/2022 Physical Health Percentile - 2 % 4 % Mental Health Percentile - 13 % 3 % Pain Score - 3 3 Pain Interference Percentile 4 % - 8 % Fatigue Percentile 1 % - 4 % Physical Function Percentile 3 % - 7 % RAPID 3 [place] Activities of Daily Living 07/01/2022 6:04 PM 01/27/2022 7:56 PM 12/28/2020 11:12 PM Dress self? With SOME difficulty With SOME difficulty With SOME difficulty Get in and out of bed? With SOME difficulty With SOME difficulty Walk outdoors? With SOME difficulty With MUCH difficulty With SOME difficulty Wash and dry body? With SOME difficulty With SOME difficulty With SOME difficulty Get in and out of car? With SOME difficulty With MUCH difficulty With MUCH difficulty RAPID 3 Disease Activity Weighed Score Levels: 0 - 1: Near Remission 1.3 - 2.0: Low Severity 2.3 - 4.0: Moderate Severity 4.3 - 10.0: High Severity RAPID-3 Weighed Score 12/28/2020 01/27/2022 07/01/2022 RAPID 3 Weighed Score Incomplete 6.39 (High Severity (HS)) 4.78 (High Severity (HS)) Review of Systems Review of Systems CONSTITUTION: Negative for: Fever and Recent weight change HEENT: Positive for: Mouth sores Negative for: Nosebleeds, Trouble swallowing and Dry mouth RESPIRATORY: Positive for: Pain with breathing Negative for: Cough and Shortness of breath GASTROINTESTINAL: Positive for: Heartburn and Abdominal pain Negative for: Melena and Diarrhea MUSCULOSKELETAL: Positive for: Arthralgias, Myalgias, Muscle weakness, Joint swelling and Morning Joint Stiffness NEUROLOGICAL: Positive for: Headaches, Numbness (random episodes in left hand and left leg-occasional, not persistent) and Memory loss SKIN: Positive for: Nail changes (brittle) Negative for: Rash, Sun Sensitive Rash and Skin changes EYES: Positive for: Eye dryness Negative for: Eye pain, Eye redness and visual disturbance CARDIOVASCULAR: Positive for: Chest pain (was reproducible) and Leg swelling GENITOURINARY: Negative for: Dysuria and Hematuria HEMATOLOGIC/LYMPHATIC: Negative for: Swollen glands All other reviewed and negative other than HPI. Past Medical History PAST MEDICAL HISTORY Diagnosis Date Anemia treated with iron in past Arthritis Displacement of intervertebral disc, site unspecified, without myelopathy cervical and lower back Family history of early CAD Fibromyalgia Heart murmur Mammographic microcalcification Mitral valve disorders(424.0) MVP MVP (mitral valve prolapse) 11/06/2010 Near syncope Other and unspecified hyperlipidemia 2019 told high age 22 on RX on and off in past Seizure (HCC) pt told absent seizure' during dental appointment no workup Past Surgical History PAST SURGICAL HISTORY Procedure Laterality Date DELIVERY ONLY , low cervical COLONOSCOPY FLX DX W/COLLJ SPEC WHEN PFRMD 03/18/2021 ESOPHAGOGASTRODUODENOSCOPY TRANSORAL DIAGNOSTIC 06/15/2013 EGD ESOPHAGOGASTRODUODENOSCOPY TRANSORAL DIAGNOSTIC 03/18/2021 EYE SURGERY HX PAST SURGICAL HISTORY OF urethra stretching age 2 PAST SURGICAL HISTORY OF D&C PAST SURGICAL HISTORY OF wisdom teeth RPR UMBILICAL HERNIA < 5 YRS REDUCIBLE 2000 Hernia repair, umbilical <5yr Family History FAMILY HISTORY Problem Relation Age of Onset Hypertension Mother Diabetes Mother Stroke Mother 62 carotid disease other (CABG) Mother 67 Heart Father 64 PA coronary stent Heart Brother 37 PA 3 stents Hypertension Brother other (Hemophelia) Brother Uterine Fibroids Brother Hypertension Maternal Grandmother other (Myocardial infarction) Maternal Grandfather 54 Diabetes Maternal Grandfather Breast Cancer Paternal Grandmother other (Myocardidal infarction) Paternal Grandmother 80 3 stents other (brain bleeding) Paternal Grandmother other (cousins) Other Mi' age 41-42 Maternal Social History Social History Tobacco Use Smoking status: Never Smokeless tobacco: Never Vaping Use Vaping Use: Never used Substance Use Topics Alcohol use: Yes Comment: 1-2 wine or beer a week Drug use: No Current Medications Current Outpatient Medications on File Prior to Visit Medication Sig aspirin 81 mg cap Take 81 mg by mouth once daily. ondansetron (ZOFRAN) 4 mg tablet Take 1 tablet day prior to CT scan, [address] scan, 1 tablet day after the procedure multivitamin (MULTIPLE VITAMINS ORAL) Take by mouth. nitroglycerin sublingual (NITROQUICK) 0.3 mg SL tablet Dissolve 1 tablet under the tongue one time only for 1 dose. To be administered in Radiology for CTA exam rosuvastatin (CRESTOR) 10 mg tablet Take 1 tablet by mouth daily at bedtime. (Patient taking differently: Take 5 mg by mouth daily at bedtime. ) famotidine (PEPCID) 20 mg tablet Take 1 tablet by mouth twice daily. metoprolol succinate ER (TOPROL XL) 50 mg 24 hr tablet Take 1 tablet by mouth once daily. cyclobenzaprine (FLEXERIL) 5 mg tablet Take 5 mg at bedtime. Gradually increase to three times a day as tolerated (Patient not taking: Reported on 01/28/2022 ) acetaminophen/diphenhydramine (TYLENOL PM ORAL) Take by mouth. Cholecalciferol, Vitamin D3, 2,000 unit cap Take 2 capsules by mouth once daily. Current Facility-Administered Medications on File Prior to Visit Medication perflutren lipid microspheres 1.3 mL in NaCl (PF) 0.9% 10 mL injection (DEFINITY) sodium chloride 0.9 % (flush) 10 mL (BD POSIFLUSH) Labs CBC Latest Ref Rng & Units 11/25/2016 12/20/2019 01/29/2022 05/13/2022 WBC 3.70 - 11.00 k/uL 5.17 5.00 6.75 4.78 HEMOGLOBIN 11.5 - 15.5 g/dL 12.9 12.4 12.3 12.0 HEMOGLOBIN, BETHANY 11.5 - 15.5 g/dL - - - - HEMATOCRIT 36.0 - 46.0 % 39.6 37.8 37.7 36.1 PLATELETS 150 - 400 k/uL 266 264 251 261 ABS NEUT (ANC) 1.45 - 7.50 k/uL - - 4.09 2.09 ABS NEUT, BETHANY 1.45 - 7.50 k/uL - - - - ABS LYMP, BETHANY 1.00 - 4.00 k/uL - - - - ABS LYMPH 1.00 - 4.00 k/uL - - 1.80 1.97 CMP Latest Ref Rng & Units 12/20/2019 12/05/2020 08/21/2021 05/13/2022 SODIUM 136 - 144 mmol/L 140 141 142 138 SODIUM, BETHANY 132 - 148 mmol/L - - - - SODIUM, BETHANY 132 - 148 mmol/L - - - - POTASSIUM 3.7 - 5.1 mmol/L 3.9 4.1 4.2 4.1 POTASSIUM, BETHANY 3.5 - 5.0 mmol/L - - - - CHLORIDE 97 - 105 mmol/L 103 104 104 106(H) CHLORIDE, BETHANY 98 - 110 mmol/L - - - - CO2 22 - 30 mmol/L 26 28 27 23 CO2, BETHANY 23.0 - 32.0 mmol/L - - - - GLUCOSE 74 - 99 mg/dL 88 85 94 92 GLUCOSE (U), BETHANY NEGAT mg/dL - - - - GLUCOSE, BETHANY 65 - 100 mg/dL - - - - BUN 7 - 21 mg/dL 15 15 14 13 BUN, BETHANY 10 - 25 mg/dL - - - - CREATININE 0.58 - 0.96 mg/dL 0.74 0.61 0.66 0.62 CREATININE, BETHANY 0.7 - 1.4 mg/dL - - - - CALCIUM, BETHANY 8.5 - 10.5 mg/dL - - - - CALCIUM, TOTAL 8.5 - 10.2 mg/dL 9.5 9.4 9.3 9.6 AST 13 - 35 U/L 20 21 24 16 AST, BETHANY 7 - 40 U/L - - - - ALT 7 - 38 U/L 7 9 11 7 ALT, BETHANY 0 - 45 U/L - - - - ALKALINE PHOSPHATASE 34 - 123 U/L 31(L) 36 38 35 Uric Acid Latest Ref Rng & Units 05/18/2013 URIC ACID 2.0 - 7.0 mg/dL 2.6 ESR, WSR Latest Ref Rng & Units 03/17/2013 05/16/2019 12/20/2019 12/12/2021 WSR 0 - 20 mm/hr 13 26(H) 5 5 SED RATE, BETHANY 0 - 20 mm/hr - - - - CRP Latest Ref Rng & Units 03/17/2013 05/16/2019 12/20/2019 12/12/2021 CRP <0.9 mg/dL 0.1 1.1(H) 0.1 <0.3 C3, C4 Latest Ref Rng & Units 12/30/2020 01/29/2022 C3 86 - 166 mg/dL 121 121 C4 13 - 46 mg/dL 27 29 CK Latest Ref Rng & Units 03/17/2013 06/16/2013 CK 30 - 220 U/L 39 58 RF and CCP Latest Ref Rng & Units 05/18/2013 12/20/2019 12/30/2020 RHEUMATOID FACTOR <16 IU/mL <7 <10 <10 CCP ANTIBODY, IGG <20 Units - - <15 Hepatitis Screen Latest Ref Rng & Units 08/24/2018 HEPBCOTOL Negative Negative HEPSABQ Negative Negative HEPCABEIA Negative Negative HBSAGR Negative Negative Antibodies Latest Ref Rng & Units 12/20/2019 12/05/2020 12/30/2020 01/29/2022 Negative Negative - Negative - BY EIA OD Ratio - 3.5 - - BY EIA, QUAL Negative - Positive(A) - - TITER Negative Negative - Negative - PATTERN - Not applicable for negative result. - Not applicable for negative result. - DNA ANTIBODY W/CONFIRMATION <30 IU/mL - - <12 <12 EDGE GRINDER MACHINE ANTIBODY <1.0 AI - - <0.2 - SSA ANTIBODY <1.0 AI - - 0.2 - SSB ANTIBODY <1.0 AI - - 1.3(H) - CORINNE-1 ANTIBODY, IGG <1.0 AI - - <0.2 - RIBOSOMAL EDGE GRINDER MACHINE <1.0 AI - - <0.2 - SM ANTIBODY <1.0 AI - - <0.2 - SCLERODERMA AB, IGG <1.0 AI - - <0.2 - CENTROMERE AB <1.0 AI - - <0.2 - CHROMATIN ANTIBODY <1.0 AI - - <0.2 - ANCA Latest Ref Rng & Units 12/30/2020 MYELOPEROXIDASE ANTIBODY (MPO) <1.0 AI Test not performed on samples negative by immunofluorescence. PROTEINASE-3 ANTIBODY <1.0 AI Test not performed on samples negative by immunofluorescence. P-ANCA FLUORESCENCE Negative Negative C-ANCA FLUORESCENCE Negative Negative PANCA <1.0 AI Test not performed on samples negative by immunofluorescence. CANCA <1.0 AI Test not performed on samples negative by immunofluorescence. Urinalysis Latest Ref Rng & Units 01/25/2015 10/21/2020 12/30/2020 01/29/2022 PROTEIN, URINE Negative Negative Negative Negative Negative PROTEIN (U), BETHANY NEGAT mg/dL - - - - PROTEIN UA (POCT) Neg mg/dL - - - - RBC, URINE 0-3 /HPF >25(A) 0-3 0-3 3-5 /HPF(A) RBC, URINE, BETHANY /hpf - - - - PROTEIN/CREATININE RATIO <0.2 - - 0.1 - Imaging Last XR Hand/Finger - Impression Only XR HAND GENERAL 3V PA/LAT/OBL BILATERAL Exam End: 01/29/2022 11:36 AM (Final result) Impression: IMPRESSION: MILD DEGENERATIVE CHANGE Wire Brusher: LESLIE Transcribe Date/Time: Jan 29 2022 12:07P Dictated by : ELISA PHAN MD... Last XR Chest - Impression Only XR CHEST 2V FRONTAL/LAT Exam End: 05/16/2019 3:37 PM (Final result) Impression: IMPRESSION: No acute radiographic abnormality. Wire Brusher: LESLIE ... Last XR Cervical Spine - Impression Only XR CERVICAL AP/LAT/OBL Collected: 11/20/2011 5:13 PM (Final result) Health Maintenance Current Immunizations Reviewed on 11/06/2010 Name Date COVID-19 vaccine, monovalent ([employer]) 11/16/2020 , 10/26/2020 TETANUS DIPHTHERIA (TD) 04/22/2022 , 10/20/2007 Physical Exam BP 124/70 Pulse 69 Temp 37.2 C (98.9 F) (Temporal) Wt 60.3 kg (133 lb) LMP 07/06/2021 BMI26.86 kg/m GENERAL: Well appearing, sitting in chair, in NAD. HEENT: EOMI, no scleral icterus, oropharynx clear NECK: No cervical LAD, or thyromegaly. CV: Normal rate, regular rhythm PULM: Normal WOB and RR on RA. EXT: No edema. SKIN: Warm, dry, no significant rashes, no significant bruising.dry skin with fissures in right hand NEURO: AOx3. Mental status and speech normal. Nonfocal Gait: Normal PSYCH: Pleasant mood, appropriate affect. MSK: Hypermobile joints Neck: Flexion, extension, and lateral rotation WNL. Spine: No TTP Shoulders: Intact ROM without reported pain. Elbows: No flexion contractures. No appreciable swelling, deformities Wrists: No limitation of flexion or extension. No appreciable swelling or tenderness with palpation. No ulnar deviation or joint laxity. Hands: No evidence of synovitis or tenderness with palpation. Able to make full fist bilaterally. Heberden's nodes present, +right thumb with inability to extend thumb Hips: No pain with leg roll Knees: No gross deformity. No appreciable effusion. No tenderness with palpation of joint lines. Nojoint laxity and intact ROM. L knee hyperextensible Ankles: No limitation of plantarflexion or dorsiflexion. No appreciable effusion. No tenderness with palpation. Feet: No evidence of synovitis or tenderness with palpation. Impression and Plan (R76.8) Positive (antinuclear antibody) (primary encounter diagnosis) (M65.311) Trigger thumb of right hand (I73.00) Raynaud's phenomenon without gangrene (M24.9) Hypermobile joints (M25.50) Pain in joint, multiple sites + , SSB Sicca symptoms, polyarthralgia Symptoms of joint pain are likely combination of mechanical changes, hypermobility, low suspicion for inflammatory arthritis at present although will continue monitoring Noted to have ?mechanics hands -denies any SOB Some improvement with flexeril so far Plan: Check labs every 6 months-orders placed Check PM/DM panel today #Trigger finger: R thumb involvement Referral to hand ortho ? Release 6 month follow up Samantha Butler MD Rheumatology 07/02/2022 11:35 AM documented in this encounterCleveland [id number] Miscellaneous Notes* Letter - Mammography Coordinator - 07/01/2022 12:53 PM EDT July 01, 2022 PID: [id number] Justine Bergeron [address] [place] [address] Dear Ms. Bergeron, We are pleased to inform you that the results of your recent breast imaging exam on 06/30/2022 are normal. Your mammogram demonstrates that you have dense breast tissue, which could hide abnormalities. Dense breast tissue, in and of itself, is a relatively common condition. Therefore, this information is not provided to cause undue concern; rather, it is to raise your awareness and promote discussion with your health care provider regarding the presence of dense breast tissue in addition to other riskfactors. Early detection of cancer is very important. We also understand recommendations regarding breast cancer screening are controversial. Please discuss with your primary care provider which strategy is best for you and whether a mammogram is right for you. Your imaging studies and report will be kept on file at [facility] as part of your permanent medical record and are available for your continuing care. Thank you for allowing us to help in meeting your health care needs. Sincerely, Dr. Lawrence Interpreting Radiologist [facility] (Normal over 40) documented in this encounterBlanchard Valley Health System11-01-2022 Miscellaneous Notes* Telephone Encounter - Maryam Emmanuel APRN.CNS - 06/30/2022 7:24 AM EDT Please schedule mammogram documented in this encounterBlanchard Valley Health System08-24-2022 History of Present illness Narrative* Domonique Guzman MD - 04/22/2022 1:12 PM EDT This note was created using NoteWriter. Subjective Justine Bergeron is a 51 year old female. HISTORY Justine Bergeron is a 51 year old lady here for yearly exam and follow up appointment. 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 Told issue with hypermobility of joints. Right thumb MCP joint issue--cannot extend thumb at MCP joint well on right. Stable on metoprolol for heart rate issues. Lost peripheral vision, heart palpitations, dizziness. Tachycardia. Is tired on this dose. At this time prefers to stay on same med since effective. Does okay on flexeril at night for back issues. Helps for sleep. Reel Man said okay and Rheumatology said to take. No adverse effects. On 10 mg Crestor now. Hot flashes stopped after 6 weeks. Having periods again. Noted issues with chest pain--MCL bilaterally. Noted holding off on NSAIDs. August 2021 had PAP and ?HPV at [facility] Mahsa Fischer Did get COVID November--doing well. PAST MEDICAL HISTORY Diagnosis Date Anemia treated with iron in past Arthritis Displacement of intervertebral disc, site unspecified, without myelopathy cervical and lower back Family history of early CAD Fibromyalgia Heart murmur Mammographic microcalcification Mitral valve disorders(424.0) MVP MVP (mitral valve prolapse) 11/06/2010 Near syncope Other and unspecified hyperlipidemia 2019 told high age 22 on RX on and off in past Seizure (HCC) pt told absent seizure' during dental appointment no workup Current Outpatient Medications Medication Sig metoprolol succinate ER (TOPROL XL) 100 mg Take 1 tablet by mouth once daily. aspirin 81 mg cap Take 81 mg by mouth once daily. multivitamin (MULTIPLE VITAMINS ORAL) Take by mouth. rosuvastatin (CRESTOR) 10 mg tablet Take 1 tablet by mouth daily at bedtime. famotidine (PEPCID) 20 mg tablet Take 1 tablet by mouth twice daily. cyclobenzaprine (FLEXERIL) 5 mg tablet Take 5 mg at bedtime. Gradually increase to three times a day as tolerated Cholecalciferol, Vitamin D3, 2,000 unit cap Take 2 capsules by mouth once daily. (Patient taking differently: Take 2,000 Units by mouth once daily.) ondansetron (ZOFRAN) 4 mg tablet Take 1 tablet day prior to CT scan, [address] scan, 1 tablet day after the procedure nitroglycerin sublingual (NITROQUICK) 0.3 mg SL tablet Dissolve 1 tablet under the tongue one time only for 1 dose. To be administered in Radiology for CTA exam metoprolol succinate ER (TOPROL XL) 50 mg 24 hr tablet Take 1 tablet by mouth once daily. acetaminophen/diphenhydramine (TYLENOL PM ORAL) Take by mouth. No current facility-administered medications for this visit. ALLERGIES Allergen Reactions Levaquin [Levofloxa* Other: See Comments Numbness, palpitations Aleve [Naproxen Sod* Other: See Comments BP elevation Codeine GI Upset Heart pounding Epinephrine Other: See Comments Heart races. Heart palpitations. FAMILY HISTORY Problem Relation Age of Onset Hypertension Mother Diabetes Mother Stroke Mother 62 carotid disease other (CABG) Mother 67 Heart Father 64 PA coronary stent Heart Brother 37 PA 3 stents Hypertension Brother other (Hemophelia) Brother Uterine Fibroids Brother Hypertension Maternal Grandmother other (Myocardial infarction) Maternal Grandfather 54 Diabetes Maternal Grandfather Breast Cancer Paternal Grandmother other (Myocardidal infarction) Paternal Grandmother 80 3 stents other (brain bleeding) Paternal Grandmother other (cousins) Other Mi' age 41-42 Maternal Social History Tobacco Use Smoking status: Never Smokeless tobacco: Never Vaping Use Vaping Use: Never used Substance Use Topics Alcohol use: Yes Comment: 1-2 wine or beer a week Drug use: No REVIEW OF SYSTEMS Review of Systems Objective BP 118/78 Pulse 67 Ht 149.9 cm (4' 11) Wt 60.3 kg (133 lb) LMP 07/06/2021 SpO2 97% BMI26.86 kg/m Last 5 Encounter Wt Readings: Date: Wt: 04/22/2022 60.3 kg (133 lb) 01/29/2022 59.8 kg (131 lb 14.4 oz) 01/28/2022 58.2 kg (128 lb 3.2 oz) 12/24/2021 56.5 kg (124 lb 9.6 oz) 12/12/2021 59 kg (130 lb) No waist measurement recorded Estimated body mass index is 26.86 kg/m as calculated from the following: Height as of this encounter: 149.9 cm (4' 11). Weight as of this encounter: 60.3 kg (133 lb). Last 5 Encounter BP Readings: Date: BP: 04/22/2022 118/78 01/29/2022 120/69 01/28/2022 112/75 01/14/2022 117/76 12/24/2021 157/94 Last 5 Encounter Pulse Readings: Date: Pulse: 04/22/2022 67 01/29/2022 67 01/28/2022 75 01/14/2022 72 12/12/2021 80 Physical Exam Vitals reviewed. Constitutional: Appearance: She is well-developed. HENT: Head: Normocephalic and atraumatic. Right Ear: External ear normal. Left Ear: External ear normal. Nose: Nose normal. Eyes: Conjunctiva/sclera: Conjunctivae normal. Neck: Thyroid: No thyromegaly. Cardiovascular: Rate and Rhythm: Normal rate and regular rhythm. Pulses: Normal pulses. Heart sounds: Normal heart sounds. No murmur heard. No friction rub. No gallop. Pulmonary: Effort: Pulmonary effort is normal. Breath sounds: Normal breath sounds. Abdominal: General: Bowel sounds are normal. There is no distension. Palpations: Abdomen is soft. There is no mass. Tenderness: There is no abdominal tenderness. Musculoskeletal: General: No deformity. Right hand: No swelling. Decreased range of motion (MCP thumb--cannot extend thumb normally). Left hand: No swelling. Comments: No active synovitis noted Lymphadenopathy: Cervical: No cervical adenopathy. Skin: General: Skin is warm and dry. Coloration: Skin is not jaundiced or pale. Findings: No rash. Neurological: General: No focal deficit present. Mental Status: She is alert and oriented to person, place, and time. Cranial Nerves: No cranial nerve deficit. Sensory: No sensory deficit. Motor: No abnormal muscle tone. Coordination: Coordination normal. Deep Tendon Reflexes: Reflexes normal. Psychiatric: Mood and Affect: Mood normal. Behavior: Behavior normal. Thought Content: Thought content normal. Judgment: Judgment normal. Assessment and Plan Encounter Diagnosis ICD-10-CM 1. Routine medical exam Z00.00 2. Pure hypercholesterolemia E78.00 LIPID PANEL BASIC 3. Costochondritis M94.0 Suspected cause for the midclavicular line chest pain that can be on either side. Consider topical diclofenac gel if bead stringer prefers no oral NSAIDs. 4. Localized primary osteoarthritis of carpometacarpal (CMC) joint of right wrist M19.031 Mild on Xray hands; not sure if affecting mobility at CMC joint of thumb. 5. Encounter for long-term current use of medication Z79.899 COMP METABOLIC PANEL CBC + DIFF 6. Need for vaccination Z23 TETANUS/DIPTHERIA BOOSTER (OVER 7), ADSORBED IM Patient here for yearly exam and follow up. Above issues addressed with patient. Patient involved in shared decision making for management of medical issues. History and medications reviewed. Epic updated as needed Refills taken care of and meds adjusted as indicated after reviewed history, exam and labs. Health Maintenance reviewed. Updated record and/or ordered tests as recorded. Encouraged on efforts at healthy diet and regular exercise and adequate sleep. Recommend trying OT to see if they can help with hand function. See whether short course of NSAID might be okay with bead stringer. No recent presyncopal or tachycardia episodes. She can decide if/when needs to try a different beta arnulfo given fatigue issue. Hesitatnt to change since doing well on it otherwise. Domonique Guzman MD documented in this encounterBlanchard Valley [facility] System08-17-2022 Miscellaneous Notes* Telephone Encounter - Kellee Pederson LPN - 04/15/2022 2:44 PM EDT Orders pending. Not sure about liver function test. Kellee Pederson LPN documented in this encounterBlanchard Valley Health System06-08-2022 Miscellaneous Notes* Telephone Encounter - Alexandra Petersen PA-C - 02/04/2022 3:06 PM EDT Sent cript for 100mg toprol to her pharmacy documented in this encounterBlanchard Valley Health System06-02-2022 History of Present illness Narrative* RT Jose G(R) - 01/29/2022 11:05 AM EDT Radiology Service Progress Note PATIENT NAME: Justine Bergeron DATE OF SERVICE: January 29, 2022 TIME: 11:35 AM PATIENT IDENTITY VERIFICATION COMPLETED USING TWO (2) IDENTIFIERS: Name and Date of confirmedby patient verbally. FALL SCREENING: Has the patient had 2 falls in the last year or 1 fall with injury or currently using an Ambulatory Assistive Device (Walker, Cane, Wheelchair, Crutches, etc.)? No PATIENT GENDER DATA: Female. status: : No status: NO. PATIENT RELEVANT IMPLANT DATA REVIEWED: Not Applicable RADIOLOGY DEPARTMENT: General X-ray: Exam(s) Completed: Pelvis X-Ray: Pelvis with Hip Left Upper Extremity X-Ray(s): Elbow, bilateral and Hand, bilateral PERIPHERAL IV DATA: Not applicable SIGNED BY: RT Jose G(R) January 29, 2022 11:35 AM documented in this encounterBlanchard Valley Health System06-02-2022 History of Present illness Narrative* Samantha Butler MD - 01/29/2022 10:07 AM EDT Images from the original note were not included. Rheumatology Outpatient Clinic Date of Service: 01/29/2022 Patient: Justine Bergeron Medical Record: [id number] Primary Care Physician: Domonique Guzman MD Last Rheumatology visit: 12/30/2020 (with Jaymie Byrnes) Referring Provider: Maryam Emmanuel [address] [place] [id number] Consultation requested by Maryam Emmanuel for an opinion regarding hand pain. My final recommendationswill be communicated back to the requesting physician by way of shared Medical record or letter to requesting physician via US mail. History of Present Illness Justine Bergeron is a 51 year old White female who presents on 01/29/2022 for an in-person visit for evaluation of hand pain. Justine is both RF - 9 (12/30/2020) and CCP - 13.5 (12/30/2020) negative. Her most recent was positive (12/30/2020). 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 Also has pain in the base of her thumbs and some DIP pain occasionally Hard to open things Stiff in the AM for about 15-20 minutes Has noticed swelling in R DIP but in no other joints Pain is worse with activity Initially used to take advil which did not seem to help her pain. Takes tylenol 1000 mg BID which is helping her. Has tried voltaren gel for her elbows but did not helped Had tried to cut out sugar and meat which has helped her joint pain after doing it for a while. She feels he has pain all over for years and has been diagnosed with fibromyalgia. HAs tried flexeril for her back which helped her, but she has not taken it in several weeks. Has been seen in the past by rheumatology in 12/2020-SSA Ab + Has lost weight intentionally Does yoga and toning exercises which has helped her back. She feels she has suddenly felt some increasing pain all over Sleep is Terrible Has been having some left sided hip pain-lateral aspect, some pain No major stressors otherwise Getting injections for her low back pain-has improved She is also having hot flashes She endorses having chest pain, worse with movement, reproducible Was having epigastric pain which has improved. Has been taking pepcid which has helped her somewhat. She passed out at work and her HR was noted to be elevated which then prompted cardiac workup Has long standing Raynaud's for 7-8 years, worse since last few weeks, Has noticed bright red and warm sensation in her palms and feet, also noticed erythema in nose No digital ulcers. 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 training Patient-Entered Data PAIN EVALUATION 01/29/2022 1021 Pain Level: 4 Pain Location: Neck , Head , Chest Description: Aching Duration Units: Unknown Frequency: Continuous Intervention/Comfort measure: Medication PROMIS Assessments PROMIS Assessments 05/31/2021 12/11/2021 01/27/2022 Physical Health Percentile 7 % 10 % - Mental Health Percentile 13 % 63 % - Pain Score 3 3 - Pain Interference Percentile 5 % - 4 % Fatigue Percentile - - 1 % Physical Function Percentile 10 % - 3 % RAPID 3 Owen Activities of Daily Living 01/27/2022 7:56 PM 12/28/2020 11:12 PM Dress self? With SOME difficulty With SOME difficulty Get in and out of bed? With SOME difficulty Walk outdoors? With MUCH difficulty With SOME difficulty Wash and dry body? With SOME difficulty With SOME difficulty Get in and out of car? With MUCH difficulty With MUCH difficulty RAPID 3 Disease Activity Weighed Score Levels: 0 - 1: Near Remission 1.3 - 2.0: Low Severity 2.3 - 4.0: Moderate Severity 4.3 - 10.0: High Severity RAPID-3 Weighed Score 12/28/2020 01/27/2022 RAPID 3 Weighed Score Incomplete 6.39 (High Severity (HS)) Review of Systems Review of Systems CONSTITUTION: Negative for: Fever and Recent weight change HEENT: Positive for: Mouth sores Negative for: Nosebleeds, Trouble swallowing and Dry mouth RESPIRATORY: Positive for: Pain with breathing Negative for: Cough and Shortness of breath GASTROINTESTINAL: Positive for: Heartburn and Abdominal pain Negative for: Melena and Diarrhea MUSCULOSKELETAL: Positive for: Arthralgias, Myalgias, Muscle weakness, Joint swelling and Morning Joint Stiffness NEUROLOGICAL: Positive for: Headaches, Numbness and Memory loss SKIN: Positive for: Rash, Sun Sensitive Rash, Skin changes and Nail changes EYES: Positive for: Eye redness and Eye dryness Negative for: Eye pain and visual disturbance CARDIOVASCULAR: Positive for: Chest pain and Leg swelling GENITOURINARY: Negative for: Dysuria and Hematuria HEMATOLOGIC/LYMPHATIC: Negative for: Swollen glands All other reviewed and negative other than HPI. Past Medical History PAST MEDICAL HISTORY Diagnosis Date Anemia treated with iron in past Arthritis Displacement of intervertebral disc, site unspecified, without myelopathy cervical and lower back Family history of early CAD Fibromyalgia Heart murmur Mammographic microcalcification Mitral valve disorders(424.0) MVP MVP (mitral valve prolapse) 11/06/2010 Near syncope Other and unspecified hyperlipidemia 2019 told high age 22 on RX on and off in past Seizure (HCC) pt told absent seizure' during dental appointment no workup Past Surgical History PAST SURGICAL HISTORY Procedure Laterality Date DELIVERY ONLY , low cervical COLONOSCOPY FLX DX W/COLLJ SPEC WHEN PFRMD 03/18/2021 ESOPHAGOGASTRODUODENOSCOPY TRANSORAL DIAGNOSTIC 06/15/2013 EGD ESOPHAGOGASTRODUODENOSCOPY TRANSORAL DIAGNOSTIC 03/18/2021 EYE SURGERY HX PAST SURGICAL HISTORY OF urethra stretching age 2 PAST SURGICAL HISTORY OF D&C PAST SURGICAL HISTORY OF wisdom teeth RPR UMBILICAL HERNIA < 5 YRS REDUCIBLE 2000 Hernia repair, umbilical <5yr Family History FAMILY HISTORY Problem Relation Age of Onset Hypertension Mother Diabetes Mother Stroke Mother 62 carotid disease other (CABG) Mother 67 Heart Father 64 PA coronary stent Heart Brother 37 PA 3 stents Hypertension Brother other (Hemophelia) Brother Uterine Fibroids Brother Hypertension Maternal Grandmother other (Myocardial infarction) Maternal Grandfather 54 Diabetes Maternal Grandfather Breast Cancer Paternal Grandmother other (Myocardidal infarction) Paternal Grandmother 80 3 stents other (brain bleeding) Paternal Grandmother other (cousins) Other Mi' age 41-42 Maternal Social History Social History Tobacco Use Smoking status: Never Smoker Smokeless tobacco: Never Used Vaping Use Vaping Use: Never used Substance Use Topics Alcohol use: Yes Comment: 1-2 wine or beer a week Drug use: No Current Medications Current Outpatient Medications on File Prior to Visit Medication Sig aspirin 81 mg cap Take 81 mg by mouth once daily. ondansetron (ZOFRAN) 4 mg tablet Take 1 tablet day prior to CT scan, [address] scan, 1 tablet day after the procedure multivitamin (MULTIPLE VITAMINS ORAL) Take by mouth. nitroglycerin sublingual (NITROQUICK) 0.3 mg SL tablet Dissolve 1 tablet under the tongue one time only for 1 dose. To be administered in Radiology for CTA exam rosuvastatin (CRESTOR) 10 mg tablet Take 1 tablet by mouth daily at bedtime. (Patient taking differently: Take 5 mg by mouth daily at bedtime. ) famotidine (PEPCID) 20 mg tablet Take 1 tablet by mouth twice daily. metoprolol succinate ER (TOPROL XL) 50 mg 24 hr tablet Take 1 tablet by mouth once daily. cyclobenzaprine (FLEXERIL) 5 mg tablet Take 5 mg at bedtime. Gradually increase to three times a day as tolerated (Patient not taking: Reported on 01/28/2022 ) acetaminophen/diphenhydramine (TYLENOL PM ORAL) Take by mouth. Cholecalciferol, Vitamin D3, 2,000 unit cap Take 2 capsules by mouth once daily. Current Facility-Administered Medications on File Prior to Visit Medication perflutren lipid microspheres 1.3 mL in NaCl (PF) 0.9% 10 mL injection (DEFINITY) sodium chloride 0.9 % (flush) 10 mL (BD POSIFLUSH) Labs CBC Latest Ref Rng & Units 01/04/2015 11/25/2016 12/20/2019 01/29/2022 WBC 3.70 - 11.00 k/uL 4.58 5.17 5.00 6.75 HEMOGLOBIN 11.5 - 15.5 g/dL 12.4 12.9 12.4 12.3 HEMOGLOBIN, BETHANY 11.5 - 15.5 g/dL - - - - HEMATOCRIT 36.0 - 46.0 % 37.3 39.6 37.8 37.7 PLATELETS 150 - 400 k/uL 303 266 264 251 ABS NEUT (ANC) 1.45 - 7.50 k/uL 2.42 - - 4.09 ABS NEUT, BETHANY 1.45 - 7.50 k/uL - - - - ABS LYMP, BETHANY 1.00 - 4.00 k/uL - - - - ABS LYMPH 1.00 - 4.00 k/uL 1.72 - - 1.80 CMP Latest Ref Rng & Units 05/16/2019 12/20/2019 12/05/2020 08/21/2021 SODIUM 136 - 144 mmol/L 139 140 141 142 SODIUM, BETHANY 132 - 148 mmol/L - - - - SODIUM, BETHANY 132 - 148 mmol/L - - - - POTASSIUM 3.7 - 5.1 mmol/L 4.0 3.9 4.1 4.2 POTASSIUM, BETHANY 3.5 - 5.0 mmol/L - - - - CHLORIDE 97 - 105 mmol/L 101 103 104 104 CHLORIDE, BETHANY 98 - 110 mmol/L - - - - CO2 22 - 30 mmol/L 27 26 28 27 CO2, BETHANY 23.0 - 32.0 mmol/L - - - - GLUCOSE 74 - 99 mg/dL 89 88 85 94 GLUCOSE (U), BETHANY NEGAT mg/dL - - - - GLUCOSE, BETHANY 65 - 100 mg/dL - - - - BUN 7 - 21 mg/dL 18 15 15 14 BUN, BETHANY 10 - 25 mg/dL - - - - CREATININE 0.58 - 0.96 mg/dL 0.78 0.74 0.61 0.66 CREATININE, BETHANY 0.7 - 1.4 mg/dL - - - - CALCIUM, BETHANY 8.5 - 10.5 mg/dL - - - - CALCIUM, TOTAL 8.5 - 10.2 mg/dL 9.6 9.5 9.4 9.3 AST 13 - 35 U/L 16 20 21 24 AST, BETHANY 7 - 40 U/L - - - - ALT 7 - 38 U/L 10 7 9 11 ALT, BETHANY 0 - 45 U/L - - - - ALKALINE PHOSPHATASE 34 - 123 U/L 40 31(L) 36 38 Uric Acid Latest Ref Rng & Units 05/18/2013 URIC ACID 2.0 - 7.0 mg/dL 2.6 ESR, WSR Latest Ref Rng & Units 03/17/2013 05/16/2019 12/20/2019 12/12/2021 WSR 0 - 20 mm/hr 13 26(H) 5 5 SED RATE, BETHANY 0 - 20 mm/hr - - - - CRP Latest Ref Rng & Units 03/17/2013 05/16/2019 12/20/2019 12/12/2021 CRP <0.9 mg/dL 0.1 1.1(H) 0.1 <0.3 C3, C4 Latest Ref Rng & Units 12/30/2020 C3 86 - 166 mg/dL 121 C4 13 - 46 mg/dL 27 CK Latest Ref Rng & Units 03/17/2013 06/16/2013 CK 30 - 220 U/L 39 58 RF and CCP Latest Ref Rng & Units 05/18/2013 12/20/2019 12/30/2020 RHEUMATOID FACTOR <16 IU/mL <7 <10 <10 CCP ANTIBODY, IGG <20 Units - - <15 Hepatitis Screen Latest Ref Rng & Units 08/24/2018 HEPBCOTOL Negative Negative HEPSABQ Negative Negative HEPCABEIA Negative Negative HBSAGR Negative Negative Antibodies Latest Ref Rng & Units 03/17/2013 12/20/2019 12/05/2020 12/30/2020 Negative Negative Negative - Negative BY EIA OD Ratio - - 3.5 - BY EIA, QUAL Negative - - Positive(A) - TITER Negative Negative Negative - Negative PATTERN - Not applicable for negative result. Not applicable for negative result. - Not applicable for negative result. DNA ANTIBODY W/CONFIRMATION <30 IU/mL - - - <12 EDGE GRINDER MACHINE ANTIBODY <1.0 AI - - - <0.2 SSA ANTIBODY <1.0 AI - - - 0.2 SSB ANTIBODY <1.0 AI - - - 1.3(H) CORINNE 1 ANTIBODY <1.0 AI - - - <0.2 RIBOSOMAL EDGE GRINDER MACHINE <1.0 AI - - - <0.2 SM ANTIBODY <1.0 AI - - - <0.2 SCLERODERMA AB, IGG <1.0 AI - - - <0.2 CENTROMERE AB <1.0 AI - - - <0.2 CHROMATIN ANTIBODY <1.0 AI - - - <0.2 ANCA Latest Ref Rng & Units 12/30/2020 MYELOPEROXIDASE ANTIBODY (MPO) <1.0 AI Test not performed on samples negative by immunofluorescence. PROTEINASE-3 ANTIBODY <1.0 AI Test not performed on samples negative by immunofluorescence. P-ANCA FLUORESCENCE Negative Negative C-ANCA FLUORESCENCE Negative Negative PANCA <1.0 AI Test not performed on samples negative by immunofluorescence. CANCA <1.0 AI Test not performed on samples negative by immunofluorescence. Urinalysis Latest Ref Rng & Units 01/08/2015 01/25/2015 10/21/2020 12/30/2020 PROTEIN, URINE Negative - Negative Negative Negative PROTEIN (U), BETHANY NEGAT mg/dL - - - - PROTEIN UA (POCT) Neg mg/dL Negative - - - RBC, URINE 0 - 3 /HPF - >25(A) 0-3 0-3 RBC, URINE, BETHANY /hpf - - - - PROTEIN/CREATININE RATIO <0.2 - - - 0.1 Imaging Last XR Hand/Finger - Impression Only XR HAND GENERAL 3V PA/LAT/OBL BILATERAL Exam End: 01/29/2022 11:36 AM (Final result) Impression: IMPRESSION: MILD DEGENERATIVE CHANGE Wire Brusher: LESLIE Transcribe Date/Time: Jan 29 2022 12:07P Dictated by : ELISA PHAN MD... Complete Results Last XR Chest - Impression Only XR CHEST 2V FRONTAL/LAT Exam End: 05/16/2019 3:37 PM (Final result) Impression: IMPRESSION: No acute radiographic abnormality. Wire Brusher: LESLIE ... Complete Results Last XR Cervical Spine - Impression Only XR CERVICAL AP/LAT/OBL Collected: 11/20/2011 5:13 PM (Final result) Complete Results Health Maintenance Current Immunizations Reviewed on 11/06/2010 Name Date COVID-19 vaccine ([employer] - PURPLE TOP) 11/16/2020 , 10/26/2020 TETANUS DIPHTHERIA (TD) 10/20/2007 Physical Exam BP 120/69 Pulse 67 Temp 37.3 C (99.2 F) (Temporal) Ht 152.4 cm (5') Wt 59.8 kg (131 lb 14.4oz) LMP 07/06/2021 BMI 25.76 kg/m GENERAL: Well appearing, sitting in chair, in NAD. HEENT: EOMI, no scleral icterus, oropharynx clear NECK: No cervical LAD, or thyromegaly. CV: Normal rate, regular rhythm tenderness over costochondral area PULM: Normal WOB and RR on RA. GI: soft, tenderness over epigastric area EXT: No edema. SKIN: Warm, dry, no significant rashes, no significant bruising. NEURO: AOx3. Mental status and speech normal. Nonfocal Gait: Normal PSYCH: Pleasant mood, appropriate affect. MSK: Hypermobile joints Neck: Flexion, extension, and lateral rotation WNL. Spine: + TTP Shoulders: Intact ROM without reported pain. Elbows: No flexion contractures. No appreciable swelling, deformities Wrists: No limitation of flexion or extension. No appreciable swelling or tenderness with palpation. No ulnar deviation or joint laxity. Hands: No evidence of synovitis or tenderness with palpation. Able to make full fist bilaterally. Pain with CMC grind test bilaterally, mild squaring of right CMC joint, heberden's nodes noted Hips: Intact ROM in all planes, left lateral tenderness above the waist band Knees: No gross deformity. No appreciable effusion. No tenderness with palpation of joint lines. Nojoint laxity and intact ROM. L knee hyperextensible Ankles: No limitation of plantarflexion or dorsiflexion. No appreciable effusion. No tenderness with palpation. Feet: No evidence of synovitis or tenderness with palpation. Impression and Plan (I73.00) Raynaud's phenomenon without gangrene (primary encounter diagnosis) (M79.7) Fibromyalgia (R76.8) Positive (antinuclear antibody) (M25.50) Pain in joint, multiple sites + , SSB Sicca symptoms, polyarthralgia Symptoms of joint pain are likely combination of mechanical changes, hypermobility, low suspicion for inflammaotry arthritis Has tennis elbow intermittently-not at present Will monitor for now (M25.552) Pain in left hip (M24.9) Hypermobile joints Referral placed for physical therapy for plan of exercise regimen aimed at improving joint stability and strength, avoiding future injury, and helping overcome physical concerns with focus on joint protection, muscular rebalancing, strengthening, and joint stabilization. (M19.041) Primary osteoarthritis of right hand Discussed OT Tylenol PRN Voltaren gel Ice/heat application Paraffin bath (E55.9) Vitamin D deficiency Check vitamin D levels I spent a total of 60 minutes on the date of the service which included preparing to see the patient, [id number] patient care, completing clinical documentation, obtaining and/or reviewing separately obtained history, performing a medically appropriate examination, counseling and educating the pat ient/family/caregiver, ordering medications, tests, or procedures and communicating with other HCPs(not separately reported). Samantha Butler MD Rheumatology Date: January 29, 2022 Time: 10:07 AM documented in this encounterBlanchard Valley [facility] System06-01-2022 History of Present illness Narrative* Jimmy Quintana MD - 01/28/2022 11:12 AM EDT Images from the original note were not included. [facility] [place] [facility] Department of Cardiovascular Medicine SECTION OF INTERVENTIONAL CARDIOLOGY OUTPATIENT VISIT DATE January 28, 2022 OUTPATIENT VISIT TYPE ESTABLISHED PRIMARY CARE PHYSICIAN: Domonique Guzman [address] [place] [address] REFERRING PHYSICIAN: Jimmy Quintana [address] [facility] [id number] CHIEF COMPLAINT: Patient presents with: Follow Up: 1 month HISTORY OF PRESENT ILLNESS: Ms. Bergeron is a 51 year old female who presents today for follow-up visit . She denies . PAST CARDIAC HISTORY: See HPI PAST MEDICAL HISTORY Diagnosis Date Anemia treated with iron in past Arthritis Displacement of intervertebral disc, site unspecified, without myelopathy cervical and lower back Family history of early CAD Fibromyalgia Heart murmur Mammographic microcalcification Mitral valve disorders(424.0) MVP MVP (mitral valve prolapse) 11/06/2010 Near syncope Other and unspecified hyperlipidemia 2019 told high age 22 on RX on and off in past Seizure (HCC) pt told absent seizure' during dental appointment no workup PAST SURGICAL HISTORY Procedure Laterality Date DELIVERY ONLY , low cervical COLONOSCOPY FLX DX W/COLLJ SPEC WHEN PFRMD 03/18/2021 ESOPHAGOGASTRODUODENOSCOPY TRANSORAL DIAGNOSTIC 06/15/2013 EGD ESOPHAGOGASTRODUODENOSCOPY TRANSORAL DIAGNOSTIC 03/18/2021 EYE SURGERY HX PAST SURGICAL HISTORY OF urethra stretching age 2 PAST SURGICAL HISTORY OF D&C PAST SURGICAL HISTORY OF wisdom teeth RPR UMBILICAL HERNIA < 5 YRS REDUCIBLE 2000 Hernia repair, umbilical <5yr SOCIAL HISTORY Social History Tobacco Use Smoking status: Never Smoker Smokeless tobacco: Never Used Vaping Use Vaping Use: Never used Substance Use Topics Alcohol use: Yes Comment: 1-2 wine or beer a week Drug use: No FAMILY HISTORY Problem Relation Age of Onset Hypertension Mother Diabetes Mother Stroke Mother 62 carotid disease other (CABG) Mother 67 Heart Father 64 PA coronary stent Heart Brother 37 PA 3 stents Hypertension Brother other (Hemophelia) Brother Uterine Fibroids Brother Hypertension Maternal Grandmother other (Myocardial infarction) Maternal Grandfather 54 Diabetes Maternal Grandfather Breast Cancer Paternal Grandmother other (Myocardidal infarction) Paternal Grandmother 80 3 stents other (brain bleeding) Paternal Grandmother other (cousins) Other Mi' age 41-42 Maternal ALLERGIES: ALLERGIES Allergen Reactions Levaquin [Levofloxa* Other: See Comments Numbness, palpitations Aleve [Naproxen Sod* Other: See Comments BP elevation Codeine GI Upset Heart pounding Epinephrine Other: See Comments Heart races. Heart palpitations. MEDICATIONS: aspirin 81 mg cap Take 81 mg by mouth once daily. multivitamin (MULTIPLE VITAMINS ORAL) Take by mouth. rosuvastatin (CRESTOR) 10 mg tablet Take 1 tablet by mouth daily at bedtime. famotidine (PEPCID) 20 mg tablet Take 1 tablet by mouth twice daily. metoprolol succinate ER (TOPROL XL) 50 mg 24 hr tablet Take 1 tablet by mouth once daily. acetaminophen/diphenhydramine (TYLENOL PM ORAL) Take by mouth. Cholecalciferol, Vitamin D3, 2,000 unit cap Take 2 capsules by mouth once daily. ondansetron (ZOFRAN) 4 mg tablet Take 1 tablet day prior to CT scan, [address] scan, 1 tablet day after the procedure metoprolol tartrate, short acting, (LOPRESSOR) 50 mg tablet Take one 50 mg tablet the evening priorto the CTA examination, take another 50 mg tablet the morning of the CTA examination. nitroglycerin sublingual (NITROQUICK) 0.3 mg SL tablet Dissolve 1 tablet under the tongue one time only for 1 dose. To be administered in Radiology for CTA exam cyclobenzaprine (FLEXERIL) 5 mg tablet Take 5 mg at bedtime. Gradually increase to three times a day as tolerated REVIEW OF SYSTEMS: PHYSICAL EXAMINATION: BP 112/75 Pulse 75 Resp 16 Ht 5' 0 (1.52m) Wt 128 lb 3.2 oz (58.2kg) SpO2 100% LMP 07/06/2021 BMI 25.04 kg/(m^2). CARDIOVASCULAR MEDICINE TESTING: IMPRESSION: Ms. Bergeron is a 51 year old female last seen 2 months ago Palp x 20 yrs, often break w cough, neg Holter; normal TTE + fm h/o early CAD occ noctural or pleurtic c/p Thinks she may be [place]- red and hot hands and feet x 30 min -> drenching sweat recently Raynaud's seroneg arthritis ? Fibromyalgia Hb 13.0 Cr 0.8 CRP <0.3 LDL 93 Today, in general has felt better. Still gets fleeting left and right ant c/p and occ short bursts of palp Hasn't rec'd my letter Reviewed results PLAN AND RECOMMENDATIONS: incr fuador from 5->10 and check labs in 2 mos try toprol 100 to see if she feels better (mentioned ablation as back up if meds fail) see rheum call in 2 mos CONTACT INFORMATION: documented in this encounterBlanchard Valley [facility] System05-18-2022 History of Present illness Narrative* Samira Harper, RT(R) - 01/14/2022 2:45 PM EDT Radiology Service Progress Note PATIENT NAME: Justine Bergeron DATE OF SERVICE: January 14, 2022 TIME: 3:25 PM PATIENT IDENTITY VERIFICATION COMPLETED USING TWO (2) IDENTIFIERS: Name and Date of confirmedby patient verbally. FALL SCREENING: Has the patient had 2 falls in the last year or 1 fall with injury or currently using an Ambulatory Assistive Device (Walker, Cane, Wheelchair, Crutches, etc.)? No PATIENT GENDER DATA: Female. status: : No status: NO. PATIENT RELEVANT IMPLANT DATA REVIEWED: Yes RADIOLOGY DEPARTMENT: CT; Exam(s) Completed: CTA Cardiac PERIPHERAL IV DATA: Site assessment: Clean,Dry and Intact, Site disposition Discontinued SIGNED BY: RT Lili(R) January 14, 2022 3:25 PM * Tanya Murphy RN - 01/14/2022 2:45 PM EDT Radiology Service Progress Note DATE OF SERVICE: January 14, 2022 TIME: 2:36 PM PATIENT WEIGHT: 124LBS PATIENT IDENTITY VERIFICATION COMPLETED USING TWO (2) STANDARD IDENTIFIERS: Name and Date of confirmed by patient verbally. FALL SCREENING: Has the patient had 2 falls in the last year or 1 fall with injury or currently using an Ambulatory Assistive Device (Walker, Cane, Wheelchair, Crutches, etc.)? No PATIENT GENDER DATA: Female. status: : No status: NO. ALLERGIES: Reviewed and unchanged CONTRAST ALLERGY: No EXAM: CT -CONTRAST INDUCED NEPHROPATHY RISK FACTORS: Not applicable CREATININE: Creatinine Date Value Ref Range Status 08/21/2021 0.66 0.58 - 0.96 mg/dL Final 12/05/2020 0.61 0.58 - 0.96 mg/dL Final 12/20/2019 0.74 0.58 - 0.96 mg/dL Final eGFR-All Other Races Date Value Ref Range Status 08/21/2021 >60 . Final Comment: eGFR (Estimated GFR) Units of measure: mL/min/1.73 meters squared eGFR is derived from the reexpressed MDRD Study equation using the following parameters: serum creatinine, age, gender and race. The creatinine assay has been calibrated to be traceable to IDMS. An eGFR <60 mL/min/1.73m2 for >3 months is consistent with chronic kidney disease. Refer to KDOQI guidelines for clinical interpretation. In patients with unstable renal function, e.g. those with acute kidney injury, the eGFR may not accurately reflect actual GFR. Note: On 10/25/2021, the eGFR calculation will be updated to the NKF-ASN Task Force recommended 2020 CKD-EPI creatinine equation which does not include a race variable. For more information or to access a 2020 CKD-EPI calculator, visit the National Kidney Foundation website at kidney.org/professionals/kdoqi/gfr_calculator. eGFR- Date Value Ref Range Status 08/21/2021 >60 Final P.O.C.T. RESULTS: N/A January 14, 2022 TREATMENT: N/A IV SITE: Ambulatory: A peripheral IV was started in the Right antecubital site with a Angio cath: 20 gauge. and A Saline lock was inserted per protocol IV SITE APPEARANCE: Clean,Dry and Intact SIGNATURE: Tanya Murphy RN PATIENT NAME: Justine Bergeron DATE: January 14, 2022 TIME: 2:36 PM Radiology Service Progress Note PATIENT NAME: Justine Bergeron DATE OF SERVICE: January 14, 2022 TIME: 2:46 PM PATIENT IDENTITY VERIFICATION COMPLETED USING TWO (2) STANDARD IDENTIFIERS: Name and Date of confirmed by patient verbally. PATIENT GENDER DATA: Female. status: : No status: NO. PATIENT RELEVANT IMPLANT DATA REVIEWED: Yes ALLERGIES: Reviewed and unchanged MEDICATIONS REVIEWED: YES PROCEDURE TYPE: CT: Beta Blocking and CT: NTG SL PATIENT SCREENING: CHF: No, Heart Block: No, Aortic Stenosis: No, Aortic Insufficiency: No, Asthmatic/Bronchospastic Disease: No, IV Beta Blocking (Lopressor/Metoprolol Tartrate): No and Medications that may enhance heart rate, slowing the effect of betablockers or calcium channel blockers: No Aortic Stenosis: No, Aortic Insufficiency: No, Constrictive Pericarditis: No, Hypertrophic/Restrictive Cardiomyopathy: No, Use of Phosphodiesterase - 5 Inhibitors: No and Stress test planned for later today: No IV SITE: Ambulatory: A peripheral IV was started in the Right antecubital site with a Angio cath: 20 gauge. and A Saline lock was inserted per protocol PERIPHERAL IV ACCESS: Discontinued CARDIAC MEDICATIONS: Nitroglycerin 0.3 mg SL given PATIENT DISCHARGED TO: Home/Self Care SIGNED BY: Tanya Murphy RN January 14, 2022 2:46 PM PATIENT EDUCATION RADIOLOGY TOPIC: Pre- Procedure Teaching:Logistics / Protocols / Complication Prevention Post- Procedure Teaching: Symptom Management / Wound Care READINESS TO LEARN COGNITIVE ABILITY: Alert and oriented MOTIVATION TO LEARN: Interested FAMILY SUPPORT: None - Unavailable/disinterested INSTRUCTION PROVIDED TO: Patient PATIENT LEARNS BEST BY: Verbal Instruction FACTORS AFFECTING LEARNING: None PHYSICAL LIMITATIONS AFFECTING LEARNING: None LEARNING RESPONSE Procedure: Angio Procedures: Radiology Procedures: CTA Coronary METHOD OF INSTRUCTION: Verbal instruction PATIENT / FAMILY RESPONSE: Verbalizes understanding of: Pre Procedure Instructions Post Procedure Instructions FOLLOW-UP PLAN: Complete - No need for follow-up REFERRAL (RECOMMENDATION): None documented in this encounterBlanchard Valley [facility]05-06-2022 Miscellaneous Notes* Telephone Encounter - Angela Simeon RN - 01/02/2022 9:38 AM EDT [employer] calling regarding the [employer] order. PH. [phone] Ref. [id number] Stated order in [facility] needs replaced to be a In Clinic order since the Zio monitor was placed in office. Currently order is listed as external so a [employer]io monitor was mailed to pt. Once new order is in [facility] they will be able to see it. No further contact necessary unless there are questions, call the number above. Please list the serial # of the monitor placed on the new order. [employer] mailed a monitor based on the current external order. They are in process of returning monitor. documented in this encounterBlanchard Valley [facility] System05-05-2022 Miscellaneous Notes* Telephone Encounter - Radha Espitia RN - 01/01/2022 4:43 PM EDT Pt called and is notified of providers message and instructions. Pt voices understanding, reports she just feels like she has a lingering cold. Radha Espitia RN * Telephone Encounter - Maryam Emmanuel APRN.CNS - 01/01/2022 4:09 PM EDT If symptoms started 12/27 then she is at day 5 today. If she wanted to complete an UC visit or mychart on demand visit today she could be screened and treated if indicated. * Telephone Encounter - Theresa Ty LPN - 01/01/2022 3:30 PM EDT Pt was also asking regarding home COVID test positive. [place] she need any other medicines? Is this too late? Per this note symptoms started 12/27/21 home test positive 12/30/21. * Telephone Encounter - Maryam Emmanuel APRN.CNS - 01/01/2022 2:17 PM EDT appears this was already rescheduled to 01/14. * Telephone Encounter - Adri Hwang MA - 12/31/2021 1:26 PM EDT Patient is wanting to know if she can still have CT scan done Wednesday due to the positive covid. Sx started Wednesday and no fever since Wednesday. Adri Hwang MA * Telephone Encounter - Constance Mederos LPN - 12/31/2021 10:45 AM EDT Pt called and states she started with Fever, body aches and not feeling well on Wednesday12-27-21. Wednesday12-30-21 diarrhea and did a home COVID test and it was positive. Today she is starting to feel better just some cold symptoms only. Question: Pt asking does she need to take any Medication for the COVID besides over the counter medication for symptoms. She has been instructed to treat her symptoms with over the counter medications, rest, get plenty of fluids in, quarantining x 5 days from when symptoms started and wearing a mask 5 more days after that. Please advise pt. Constance Mederos LPN documented in this encounterBlanchard Valley [facility] System04-29-2022 Miscellaneous Notes* Telephone Encounter - Domi Ko APRN.CNP - 12/26/2021 12:53 PM EDT Call to patient- unable to leave a message Okay to take as needed ibuprofen with Holter. Will not affect the results Please give her the message when she calls back * Telephone Encounter - Kailee French - 12/26/2021 12:06 PM EDT Pt called office with question. Pt has heart monitor on, wanted to verify if she can take advil because she has testing coming up and is concerned that she may mess up the heart monitor. Is currentlyhaving some palpitations. Would like some advice. documented in this encounterBlanchard Valley [facility]04-28-2022 History of Present illness Narrative* Reynaldo Stallings RN - 12/25/2021 10:07 AM EDT EVENT MONITOR DISPOSABLE PATCH INSTRUCTIONS Patient Name: Justine Bergeron [facility] Number: [id number] Skin prepped and cleansed with alcohol Patch secured to prepped area Monitor Activated Serial #: [id number] Patient Instructed: 1.) Prescribed order timeframe 2.) Bathing guidelines 3.) Usage of event button and diary documentation 4.) Return of monitor at the end of prescribed order 5.) Call with problems [phone] or [phone] ext. [phone] Patient expresses a good understanding of instructions Reynaldo Stallings RN documented in this encounterBlanchard Valley Health System04-27-2022 Miscellaneous Notes* Telephone Encounter - Constance Raffy - 12/24/2021 4:10 PM EDT Lulú Castañeda NP is in on Wednesday. Will add her that day. Constance Raffy * Telephone Encounter - Dalila Mauricio LPN - 12/24/2021 3:41 PM EDT Spoke with Bhavya Simeon RN. Please schedule a nurse visit Wednesday and she will apply the Zio. Will not interfere with CT. Dalila Mauricio LPN * Telephone Encounter - Dalila Mauricio LPN - 12/24/2021 3:32 PM EDT Patient's spouse calling, they left their cardiology appointment at [facility] and a Zio 14 day monitor was ordered and they forgot to wait to have it applied before they started home. [facility] is willing to mail the monitor to the patient, but they were wondering if they could have it applied in [place]? Of note, patient has a radiology appt next Wednesday- please double check orders to be sure the monitor will not interfere with results. Please advise and contact spouse. Dalila Mauricio LPN documented in this encounterBlanchard Valley Health System04-27-2022 History of Present illness Narrative* Jimmy Quintana MD - 12/24/2021 12:00 PM EDT Images from the original note were not included. [facility] [place] [facility] Department of Cardiovascular Medicine SECTION OF INTERVENTIONAL CARDIOLOGY OUTPATIENT VISIT DATE December 24, 2021 OUTPATIENT VISIT TYPE CONSULTATION PRIMARY CARE PHYSICIAN: Domonique Guzman [address] [place] [address] REFERRING PHYSICIAN Maryam Emmanuel [address] [facility] [address] CHIEF COMPLAINT: Chest pain Irregular heart beat Palpitations HISTORY OF PRESENT ILLNESS: Cardiac consultation at the request of Dr. Maryam Emmanuel.A copy of this consultation note will be provided to the requesting physician by way of shared Medical record or letter to requesting physicianvia US mail. Ms. Bergeron is a 51 year old female who is seen today for . NURSING INTAKE: Ms. Bergeron is a 51 year old female from [place], [place] who is seen today for evaluation of atypicalchest pain. Past medical history includes HLD, MVP, FH of CAD (brother had premature CAD 37 years). Pt reports a long history of MVP and palpitations and has worn extended monitoring years ago and noarrhythmia She has had echocardiograms in past 24-HR Holter 11/26/2009: 24 hour Holter, quality fair, heavy intermittent artifact in all channels Sinus rhythm, mean heart rate 64 PA 0.14, QRS 0.08, No AV block 1 APD in 24 hour, No SVT, No A Fib Rare VPD (<1/hr), No VTach No pauses ST segments appear stable No symptoms reported Exercise Stress Echo 02/12/2011: CONCLUSIONS: - The exercise stress echo was negative for ischemia at 102 % of MPHR (8.5 METS) . Trivial MR. No evidence of MVP. - Trivial TR. RVSP 29mmHg. - No valvular stenosis. TTE 12/10/2020: CONCLUSIONS: - Exam indication: Palpitations - The left ventricle is normal in size. Left ventricular systolic function is normal. EF = 63 5% (2D biplane) Normal left ventricular diastolic function. - The right ventricle is normal in size. Right ventricular systolic function is normal. - There are no significant valvular abnormalities. - Exam was compared with the prior echocardiographic exam performed on 11/12/2010 (Stress). There has been no significant change in left ventricular systolic function. 1 month she presented to ED with a pain chest with breathing or moving She had ECG, CXR, Blood tests And told nothing found She was directed to go to the emergency room and went to [place] [facility]. However, no records are available from her ED visit. (Troponin 1 HS 3) She followed up in internal medicine on 12/12/2021. Per note:vital signs in ER were stable. Troponin was negative. Heart score in ER was 1. Chest x-ray negative for acute process. EKG showed normal sinus rhythm with no ectopy or ST or T wave changes.Impression was atypical chest pain and mitral valve prolapse. Prior to that she had been having chest pain Mid for months Occurring at rest, Once recently this occurred stretching exercises and subsided on own She has awakened and had to gasp a few time and feels her heart beating fast She deneis orthopnea, PND She had made appointment to be evaluated here Last Wednesday while at work she had episode of near syncope, Tunnel vision, 911 was called and had chest pain in ambulance She had CXR, blood, ECG and placed on 48 hr Holter monitor NSR Minimum HR 55 In Sinus bradycardia MAX HR 140 Sinus tachycardia Pt reported waking up to rapid heart rate Average 81 BMP Rare PAC's 1 atrial couplet 1 atrial run totaling 3 beats rate 135 Rare PVC's NO runs Longest R-R interval was `1-2 second The pt kept a 48 hr daily and noted rapid heart rate, palpitations, chest pain and sudden increase in HR/ Pounding and back pain which occasionally correlated with tachycardia and or ectopy She reports years of palpitations which would resolve with coughing She notes lightheadness with fluttering]ng in her chest and was told lightheadness due to dehydration 3 yeas ago She c/o pain whole leg She denies asthma,COPD She denies LE edema She had episode in past during dental visit where she was staring after being given Xanax And toldabsent seizure' But never had workup and nothing since Diet / Nutrition: No red meat or pork, healthy Weight: decreased 15 lbs 6 months Exercise: Stretching, toning, yoga Component Latest Ref Rng & Units 08/21/2021 12/12/2021 Protein, Total 6.3 - 8.0 g/dL 6.7 Albumin 3.9 - 4.9 g/dL 4.2 Calcium 8.5 - 10.2 mg/dL 9.3 Bilirubin, Total 0.2 - 1.3 mg/dL 0.4 Alkaline Phosphatase 34 - 123 U/L 38 AST 13 - 35 U/L 24 Glucose 74 - 99 mg/dL 94 BUN 7 - 21 mg/dL 14 Creatinine 0.58 - 0.96 mg/dL 0.66 Sodium 136 - 144 mmol/L 142 Potassium 3.7 - 5.1 mmol/L 4.2 Chloride 97 - 105 mmol/L 104 CO2 22 - 30 mmol/L 27 Anion Gap 9 - 18 mmol/L 11 ALT 7 - 38 U/L 11 eGFR- >60 eGFR-All Other Races . >60 Cholesterol, Total <200 mg/dL 166 Triglyceride <150 mg/dL 47 HDL Cholesterol >39 mg/dL 64 LDL Cholesterol <100 mg/dL 93 Non HDL Cholesterol <130 mg/dL 102 Fasting Time hrs 12 VLDL Cholesterol <30 mg/dL 9 TC:HDL Ratio <5.10 2.59 LDL:HDL Ratio <2.54 1.45 WSR 0 - 20 mm/hr 5 CRP <0.9 mg/dL <0.3 Component Latest Ref Rng & Units 12/30/2020 Sm Antibody <1.0 AI <0.2 EDGE GRINDER MACHINE Antibody <1.0 AI <0.2 SSA Antibody <1.0 AI 0.2 SSB Antibody <1.0 AI 1.3 (H) Centromere Ab <1.0 AI <0.2 Scleroderma Ab, IgG <1.0 AI <0.2 Corinne 1 Antibody <1.0 AI <0.2 Ribosomal EDGE GRINDER MACHINE <1.0 AI <0.2 Chromatin Antibody <1.0 AI <0.2 c-ANCA Fluorescence Negative Negative p-ANCA Fluorescence Negative Negative Proteinase-3 Antibody <1.0 AI Test not performed on samples negative by immunofluorescence. Myeloperoxidase Antibody (MPO) <1.0 AI Test not performed on samples negative by immunofluorescence. Interpretation (ANCA) Negative for C-ANCA and P-ANCA by indirect immunofluorescence. Staff Review (ANCA) Staff review not performed on samples negative by immunofluorescence. Negative Negative Titer Negative Negative Pattern Not applicable for negative result. Protein, Urine Random 0 - 20 mg/dL 9 Creatinine, Ur Random (UCRR) 20 - 300 mg/dL 120.9 Protein/Creat Ratio <0.2 0.1 C4 13 - 46 mg/dL 27 Rheumatoid Factor <16 IU/mL <10 CCP Antibody, IgG <20 Units <15 C3 86 - 166 mg/dL 121 DNA Antibody w/Confirmation <30 IU/mL <12 PAST MEDICAL HISTORY Diagnosis Date Arthritis Displacement of intervertebral disc, site unspecified, without myelopathy cervical and lower back Family history of early CAD Fibromyalgia Heart murmur Mammographic microcalcification Mitral valve disorders(424.0) MVP MVP (mitral valve prolapse) 11/06/2010 Near syncope Other and unspecified hyperlipidemia 2019 told high age 22 on RX on and off in past Seizure (HCC) pt told absent seizure' during dental appointment no workup PAST SURGICAL HISTORY Procedure Laterality Date DELIVERY ONLY , low cervical COLONOSCOPY FLX DX W/COLLJ SPEC WHEN PFRMD 03/18/2021 ESOPHAGOGASTRODUODENOSCOPY TRANSORAL DIAGNOSTIC 06/15/2013 EGD ESOPHAGOGASTRODUODENOSCOPY TRANSORAL DIAGNOSTIC 03/18/2021 EYE SURGERY HX PAST SURGICAL HISTORY OF urethra stretching age 2 PAST SURGICAL HISTORY OF D&C PAST SURGICAL HISTORY OF wisdom teeth RPR UMBILICAL HERNIA < 5 YRS REDUCIBLE 2000 Hernia repair, umbilical <5yr SOCIAL HISTORY Social History Tobacco Use Smoking status: Never Smoker Smokeless tobacco: Never Used Vaping Use Vaping Use: Never used Substance Use Topics Alcohol use: Yes Comment: 1-2 wine or beer a week Drug use: No FAMILY HISTORY Problem Relation Age of Onset Hypertension Mother Diabetes Mother Stroke Mother carotid disease Heart Father PA Hypertension Maternal Grandmother Heart Maternal Grandfather Diabetes Maternal Grandfather Breast Cancer Paternal Grandmother Heart Brother PA Hypertension Brother ALLERGIES: ALLERGIES Allergen Reactions Levaquin [Levofloxa* Other: See Comments Numbness, palpitations Aleve [Naproxen Sod* Other: See Comments BP elevation Codeine GI Upset Heart pounding Epinephrine Other: See Comments Heart races. Heart palpitations. MEDICATIONS: multivitamin (MULTIPLE VITAMINS ORAL) Take by mouth. [START ON 12/31/2021] rosuvastatin (CRESTOR) 10 mg tablet Take 1 tablet by mouth daily at bedtime. famotidine (PEPCID) 20 mg tablet Take 1 tablet by mouth twice daily. metoprolol succinate ER (TOPROL XL) 50 mg 24 hr tablet Take 1 tablet by mouth once daily. Cholecalciferol, Vitamin D3, 2,000 unit cap Take 2 capsules by mouth once daily. cyclobenzaprine (FLEXERIL) 5 mg tablet Take 5 mg at bedtime. Gradually increase to three times a day as tolerated acetaminophen/diphenhydramine (TYLENOL PM ORAL) Take by mouth. REVIEW OF SYSTEMS: GENERAL: chills and hot flashes HEENT: headaches, own teeth SKIN: no rashes and no ulcers RESPIRATORY: no cough, no shortness of breath, no dyspnea on exertion, no orthopnea, no paroxysmal nocturnal dyspnea, no asthma and no COPD CARDIOVASCULAR: no syncope, no claudication, no edema and See HPI GASTROINTESTINAL: no abdominal pain, no nausea, no vomiting and no melanotic stools GENITOURINARY: no dysuria MUSCULOSKELETAL: joint pain and muscle pain or myalgias NEUROLOGIC: numbness and tingling HEMATOLOGY: no bruising easily, no anemia and no cancer ENDOCRINE: no diabetes and no thyroid disease PSYCH: sleep disturbance PHYSICAL EXAMINATION: LMP 07/06/2021 CARDIOVASCULAR MEDICINE TESTING: IMPRESSION: Ms. Bergeron is a 51 year old female for c/p and palp Occ epigastric pain for yrs, sometimes awakening from sleep 2 weeks ago pleuritic an c/p relieved with NSAIDs Very strong fm hx for CAD Not terribly active but can walk up 2 FOS w/o c/p Had been on statins in the past and 08/19 LDL refects current dose Raynaud's ? Fibromyalgia Palp for 20+ yrs; if they get bad she can usually break them with cough (dx unclear, although may have MVP Last week ago had palp-> sense she was going to pass out with tunnel vision->ED->nothing found palp with largely neg Holter x occ 3 beat AAT Jt swelling with unclear dx (serologies largely neg) Thinks she may be k[place]- red and hot hands and feet x 30 min -> drenching sweat recently PE looks well Liungs- CTA Cor RR split S1 and 1/6 HSM (S1 doesn't move standing and lying) Extr- no edema Neuro- grossly intact worst palp sounds someone like SVT of some type9 (resp to cough) at risk by fm hx of CAD but sx not classical, spasm? 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 CONTACT INFORMATION: documented in this encounterBlanchard Valley Health System04-27-2022 Miscellaneous Notes* Telephone Encounter - Theresa Ty LPN - 12/24/2021 9:28 AM EDT rec'd results for feli from [facility] pt completed. Pt has appt with Dr. Quintana 12/24/21 this report was faxed to his office on 12/23/21. documented in this encounterBlanchard Valley Health System04-15-2022 History of Present illness Narrative* Maryam Emmanuel APRN.GENERAL MAINTENANCE HELPER - 12/12/2021 9:48 AM EDT SUBJECTIVE: DTAP,TDAP,TD(1 - Tdap) due on 10/21/2007 SHINGRIX VACCINE(1 of 2) Never done COVID-19 VACCINE(3 - Booster for Pfizer series) due on 04/18/2021 PAP TESTING due on 01/14/2022 HPV TESTING due on 01/14/2022 HPI Justine Bergeron is a 51 year old female. ACTIVE PROBLEM LIST Mvp (Mitral Valve Prolapse) Cervicalgia Family History of Ischemic Heart Disease History of Myositis Lumbago Hyperlipidemia Atypical Chest Pain Raynaud's Phenomenon Without Gangrene Lumbar Disc Herniation Annular Tear of Lumbar Disc Review of Systems Constitutional: Negative. Musculoskeletal: Positive for arthralgias. Presents today for emergency department follow-up visit. [facility]. She reported history of mitral valve prolapse and elevated cholesterol. No prior history of cardiac disease, DVT PE. No recent travel surgery or immobilization. She reported chest pain on the left side described as discomfort on the day prior to admissionwhich became more diffuse and present on both side of her chest when seen in the emergency department. Increased with movement. Not associated with exertion. Vital signs in ER were stable. Pulse ox 100% on room air. Exam was unremarkable. Chest wall was nontender on palpation as was abdomen. Neurolo gically intact, no motor deficits. Troponin was negative. Heart score in ER was 1. Chest x-ray negative for acute process. EKG showed normal sinus rhythm with no ectopy or ST or T wave changes.Impression was atypical chest pain and mitral valve prolapse. Today she notes discomfort continues. Notes improved since she was seen in the emergency department. Notes bilateral anterior chest wall discomfort. Achey and sharp across her left and right chest wall to bilateral axilla. Notes taking advil, does not seem to help. 400mg QD. Was taking BID. Notes worse with deep breathing. Notes heat seems to help. No known history of asthma. No associated symptoms. No recent illness or fever. No cough. She states concern regarding possible inflammation throughout her body, she notes left heel, bilateral knee and both hands with joint pain, chronic but seem worse currently. Pain everywhere. Was seen by rheumatology about 1 year ago and noted fibromyalgia. She notes chest pain associated with deep breathing or movement; not associated with walking or taking stairs. No change in functional capacity. No limits in taking stairs or walking a flat surface. History of MVP on chart review however had echocardiogram completed 2020 at which showed no significant valvular disease. Notes had maintained hydration on date seen in ER. No smoking. Not hypertensive. No hyperlipidemia. Notes her brother had premature heart disease, PA / CAD age 37 years. Her most recent lipid panels are: Cholesterol, Total (mg/dL) Date Value 08/21/2021 166 12/05/2020 193 HDL Cholesterol (mg/dL) Date Value 08/21/2021 64 12/05/2020 56 LDL Cholesterol (mg/dL) Date Value 08/21/2021 93 12/05/2020 124 Triglyceride (mg/dL) Date Value 08/21/2021 47 12/05/2020 67 No report of headache, chest pain, palpitations, dyspnea, peripheral edema, orthopnea, fatigue or PND. Last 3 Encounter BP Readings: Date: BP: 12/12/2021 122/76 08/13/2021 112/70 07/22/2021 103/68 Hyperlipidemia. Ms. Bergeron reports doing well on current therapy. No adverse effects noted on Crestor. Her most recent lipid panels are: Cholesterol, Total (mg/dL) Date Value 08/21/2021 166 12/05/2020 193 HDL Cholesterol (mg/dL) Date Value 08/21/2021 64 12/05/2020 56 LDL Cholesterol (mg/dL) Date Value 08/21/2021 93 12/05/2020 124 Triglyceride (mg/dL) Date Value 08/21/2021 47 12/05/[address] Pascal and Dr. Hansen for atypical chest pain. Continues with metoprolol succinate 50 mg once daily, rosuvastatin 10 mg once daily. Notes chronic /HB reflux for which she is taking famotidine twice daily. Not controlling as well asit used to currently. No report of nausea vomiting diarrhea constipation BRBPR black or tarry stools. Objective BP 122/76 Pulse 80 Resp 16 Wt 59 kg (130 lb) LMP 07/06/2021 BMI 25.39 kg/m Physical Exam Vitals and nursing note reviewed. Constitutional: Appearance: Normal appearance. HENT: Head: Normocephalic and atraumatic. Eyes: Conjunctiva/sclera: Conjunctivae normal. Neck: Thyroid: No thyroid mass or thyromegaly. Vascular: Normal carotid pulses. No carotid bruit or JVD. Cardiovascular: Rate and Rhythm: Normal rate and regular rhythm. Pulses: Carotid pulses are 2+ on the right side and 2+ on the left side. Radial pulses are 2+ on the right side and 2+ on the left side. Heart sounds: Normal heart sounds. Comments: TTP chest wall Pulmonary: Effort: Pulmonary effort is normal. Breath sounds: Normal breath sounds. Abdominal: General: Bowel sounds are normal. Palpations: Abdomen is soft. Tenderness: There is abdominal tenderness (epigastric). Skin: General: Skin is warm and dry. Neurological: General: No focal deficit present. Mental Status: She is alert and oriented to person, place, and time. ALLERGIES Allergen Reactions Levaquin [Levofloxa* Other: See Comments Numbness, palpitations Aleve [Naproxen Sod* Other: See Comments BP elevation Codeine GI Upset Heart pounding Epinephrine Other: See Comments Heart races. Heart palpitations. MEDICATIONS metoprolol succinate ER (TOPROL XL) 50 mg 24 hr tablet Take 1 tablet by mouth once daily. cyclobenzaprine (FLEXERIL) 5 mg tablet Take 5 mg at bedtime. Gradually increase to three times a day as tolerated acetaminophen/diphenhydramine (TYLENOL PM ORAL) Take by mouth. rosuvastatin (CRESTOR) 10 mg tablet Take 1 tablet by mouth daily at bedtime. famotidine (PEPCID) 20 mg tablet Take 1 tablet by mouth twice daily. Cholecalciferol, Vitamin D3, 2,000 unit cap Take 2 capsules by mouth once daily. ibuprofen (MOTRIN) 800 mg tablet Take 1 tablet by mouth every 8 hours as needed for pain. Take withfood. PAST MEDICAL HISTORY Diagnosis Date Arthritis Displacement of intervertebral disc, site unspecified, without myelopathy cervical and lower back Mammographic microcalcification Mitral valve disorders(424.0) MVP Other and unspecified hyperlipidemia Social History Tobacco Use Smoking status: Never Smoker Smokeless tobacco: Never Used Vaping Use Vaping Use: Never used Substance Use Topics Alcohol use: Yes Comment: 1-2 wine or beer a week Drug use: No Component Latest Ref Rng & Units 12/30/2020 08/21/2021 Sm Antibody <1.0 AI <0.2 EDGE GRINDER MACHINE Antibody <1.0 AI <0.2 SSA Antibody <1.0 AI 0.2 SSB Antibody <1.0 AI 1.3 (H) Centromere Ab <1.0 AI <0.2 Scleroderma Ab, IgG <1.0 AI <0.2 Corinne 1 Antibody <1.0 AI <0.2 Ribosomal EDGE GRINDER MACHINE <1.0 AI <0.2 Chromatin Antibody <1.0 AI <0.2 Cholesterol, Total <200 mg/dL 166 Triglyceride <150 mg/dL 47 HDL Cholesterol >39 mg/dL 64 LDL Cholesterol <100 mg/dL 93 Non HDL Cholesterol <130 mg/dL 102 Fasting Time hrs 12 VLDL Cholesterol <30 mg/dL 9 TC:HDL Ratio <5.10 2.59 LDL:HDL Ratio <2.54 1.45 c-ANCA Fluorescence Negative Negative p-ANCA Fluorescence Negative Negative Proteinase-3 Antibody <1.0 AI Test not performed on samples negative by immunofluorescence. Myeloperoxidase Antibody (MPO) <1.0 AI Test not performed on samples negative by immunofluorescence. Interpretation (ANCA) Negative for C-ANCA and P-ANCA by indirect immunofluorescence. Staff Review (ANCA) Staff review not performed on samples negative by immunofluorescence. Negative Negative Titer Negative Negative Pattern Not applicable for negative result. C4 13 - 46 mg/dL 27 Rheumatoid Factor <16 IU/mL <10 CCP Antibody, IgG <20 Units <15 C3 86 - 166 mg/dL 121 DNA Antibody w/Confirmation <30 IU/mL <12 TTE 12/10/2020 CONCLUSIONS: - Exam indication: Palpitations - The left ventricle is normal in size. Left ventricular systolic function is normal. EF = 63 5% (2D biplane) Normal left ventricular diastolic function. - The right ventricle is normal in size. Right ventricular systolic function is normal. - There are no significant valvular abnormalities. - Exam was compared with the prior echocardiographic exam performed on 11/12/2010 (Stress). There has been no significant change in left ventricular systolic function. EGD 03/18/21 Impression: - Normal examined jejunum. - Normal examined duodenum. - Gastritis. Biopsied. - Multiple gastric polyps. Biopsied. - Normal lower third of esophagus. Biopsied. - Normal middle third of esophagus. Biopsied. ASSESSMENT/PLAN: 1. Atypical chest pain - ICD9: 786.59, ICD10: R07.89 (primary diagnosis) Negative work-up to date. Does have family history of premature heart disease. Non-smoker. Treatingcholesterol. Not hypertensive. She has history of gastritis so we will treat with PPI in addition to H2 arnulfo for 6 to 8 weeks to see if improvement of chest pain. She does note previous visit with rheumatology and fibromyalgia diagnosis. It is possible that her discomfort could be related to fibromyalgia as well as tenderness on palpation in her visit today. Recommend she is scheduled with bead stringer for further evaluation and recommendations, Dr. Krystyna Li or preferred - CONSULT TO CARDIOLOGY 2. Family history of coronary artery disease - ICD9: V17.3, ICD10: Z82.49 - CONSULT TO CARDIOLOGY - ROSUVASTATIN 10 MG TABLET 3. History of gastritis - ICD9: V12.79, ICD10: Z87.19 4. Gastric polyp - ICD9: 211.1, ICD10: K31.7 We will add PPI for 6 to 8 weeks to see if this improves symptoms. - OMEPRAZOLE 20 MG CAPSULE,DELAYED RELEASE - FAMOTIDINE 20 MG TABLET 5. Fibromyalgia - ICD9: 729.1, ICD10: M79.7 6. Pain of left hip joint - ICD9: 719.45, ICD10: M25.552 7. Chronic pain of both knees - ICD9: 719.46, 338.29, ICD10: M25.561, M25.562, G89.29 8. 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 Will check CRP and ESR today. - CONSULT TO RHEUM/IMMUN DISEASE - [facility] - C-REACTIVE PROTEIN (CRP) 9. Pure hypercholesterolemia - ICD9: 272.0, ICD10: E78.00 Continue with current treatment unchanged for now. - ROSUVASTATIN 10 MG TABLET 6 mo follow up MD Maryam Arredondo APRN.CNS Medical Decision Making: Problems: Moderate: New problem with uncertain prognosis Data: Unique test(s) ordered: 2 Risk: Moderate: Drug management Medical Decision Making Level: 4 - Moderate documented in this encounterBlanchard Valley Health System04-03-2022 History of Present illness Narrative* Nessa Gonzáles APRN.ANALI - 11/30/2021 10:58 AM EDT [facility] Triage Note: Patient presented to [facility] for evaluation of chest pain. She has had this since Wednesday. She denies cough or congestion. She has had some joint pain and swelling and body aches. She is concerned she may have lupus. She is advised we cannot do a chest xray today and [facility] cannot evaluate chest pain. She elects to go to [facility] ER. Nessa Gonzáles APRN.ANALI documented in this encounterBlanchard Valley Health System01-05-2022 NotePap Smear Specimen AdequacyJanuary 2021 12:51pmCommentSatisfactory for evaluation. Endocervical and/or squamous metaplasticcells (endocervical component)are present.[facility] INTER[facility]ACED A#[id number] Hospitals St. John [facility] Center Work Phone: Comment on above:Satisfactory for evaluation. Endocervical and/or squamous metaplasticcells (endocervical component)are present.09-03-2021 NotePap Smear Specimen AdequacyJanuary 2021 12:51pm CommentSatisfactory for evaluation. Endocervical and/or squamous metaplasticcells (endocervical component)are present.[facility] INTER[facility]ED A#[id number] Hospitals St. John Medical Center Work Phone: Comment on above:Satisfactory for evaluation. Endocervical and/or squamous metaplasticcells (endocervical component)are present.09-03-2021 NotePap Smear Specimen AdequacyJanuary 2021 12:51pm CommentSatisfactory for evaluation. Endocervical and/or squamous metaplasticcells (endocervical component)are present.[facility] INTER[facility]ACED A#[id number] Hospitals St. John Medical Center Work Phone: Comment on above:Satisfactory for evaluation. Endocervical and/or squamous metaplasticcells (endocervical component)are present.08-13-2021 History of Present illness Narrative* Antione Hill RT(R) - 08/13/2021 6:00 PM EST Radiology Service Progress Note PATIENT NAME: Justine Bergeron DATE OF SERVICE: August 13, 2021 TIME: 6:03 PM PATIENT IDENTITY VERIFICATION COMPLETED USING TWO (2) IDENTIFIERS: Name and Date of confirmedby patient verbally. FALL SCREENING: Has the patient had 2 falls in the last year or 1 fall with injury or currently using an Ambulatory Assistive Device (Walker, Cane, Wheelchair, Crutches, etc.)? No PATIENT GENDER DATA: Female. status: : No status: NO. PATIENT RELEVANT IMPLANT DATA REVIEWED: Not Applicable RADIOLOGY DEPARTMENT: General X-ray: Exam(s) Completed: Upper Extremity X- Ray(s): Fingers/Thumb, right PERIPHERAL IV DATA: Not applicable SIGNED BY: RT Gia(R) August 13, 2021 6:03 PM documented in this encounterBl[facility] History of Past illness Narrative* Problem Noted Date Resolved Date Dysuria 01/08/2015 10/14/2015 Bilateral flank pain 01/08/2015 10/14/2015 Vaginal discharge 01/08/2015 10/14/2015 Epigastric pain 06/12/2013 10/14/2015 Other and unspecified hyperlipidemia 01/01/2009 10/14/2015 Overview: LDl 142, HDL 55, TG 64 in 01-05: rec dietary discretion (consider statins if no wt loss) Last Assessment & Plan: Component Latest Ref Rng 11/27/2009 Triglyceride, [place] 30 - 200 mg/dL 56 Cholesterol, [place] 0 - 200 mg/dL 192 HDL Chol, [place] 40 - 60 mg/dL 49 VLDL Chol, [place] 5 - 40 mg/dL 11 LDL Chol, [place] 0 - 129 mg/dL 132 (H) TC HDL Risk, [place] 0.0 - 5.0 3.9 TSH, [place] 0.400 - 5.500 uIU/mL 2.15 Noted around 6 pound wt loss over the past 3 yrs. Past hx of being on crestor; had stopped years ago and has been able to maintain without medication. Denies any routine exercise. Diet rich in fruits and vegetables; does not limit foods. 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 Takes BB. Lumbago 10/20/2007 03/16/2014 Overview: New episode in 08-05: went to ED and responded to prednisone Dermatophytosis of nail 10/20/2007 06/16/20 13 Overview: To ask insurance about empiric use of Lamisil as of 2- Overweight(278.02) 10/20/2007 10/14/2015 documented as of this encounter (statuses as of 11/30/2021) [facility] of Past illness Narrative* Problem Noted Date Resolved Date Dysuria 01/08/2015 10/14/2015 Bilateral flank pain 01/08/2015 10/14/2015 Vaginal discharge 01/08/2015 10/14/2015 Epigastric pain 06/12/2013 10/14/2015 MVP (mitral valve prolapse) 11/06/201011/28 Other and unspecified hyperlipidemia 01/01/2009 10/14/2015 Overview: LDl 142, HDL 55, TG 64 in 01-05: rec dietary discretion (consider statins if no wt loss) Last Assessment & Plan: Component Latest Ref Rng 11/27/2009 Triglyceride, [place] 30 - 200 mg/dL 56 Cholesterol, [place] 0 - 200 mg/dL 192 HDL Chol, [place] 40 - 60 mg/dL 49 VLDL Chol, [place] 5 - 40 mg/dL 11 LDL Chol, [place] 0 - 129 mg/dL 132 (H) TC HDL Risk, [place] 0.0 - 5.0 3.9 TSH, [place] 0.400 - 5.500 uIU/mL 2.15 Noted around 6 pound wt loss over the past 3 yrs. Past hx of being on crestor; had stopped years ago and has been able to maintain without medication. Denies any routine exercise. Diet rich in fruits and vegetables; does not limit foods. 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 Takes BB. Lumbago 10/20/2007 03/16/2014 Overview: New episode in 08-05: went to ED and responded to prednisone Dermatophytosis of nail 10/20/2007 06/16/20 13 Overview: To ask insurance about empiric use of Lamisil as of 208 Overweight(278.02) 10/20/2007 10/14/2015 documented as of this encounter (statuses as of 12/12/2021) [facility] of [facility] illness Narrative* Problem Noted Date Resolved Date Dysuria 01/08/2015 10/14/2015 Bilateral flank pain 01/08/2015 10/14/2015 Vaginal discharge 01/08/2015 10/14/2015 Epigastric pain 06/12/2013 10/14/2015 MVP (mitral valve prolapse) 11/06/201011/28 Other and unspecified hyperlipidemia 01/01/2009 10/14/2015 Overview: LDl 142, HDL 55, TG 64 in 01-05: rec dietary discretion (consider statins if no wt loss) Last Assessment & Plan: Component Latest Ref Rng 11/27/2009 Triglyceride, [place] 30 - 200 mg/dL 56 Cholesterol, [place] 0 - 200 mg/dL 192 HDL Chol, [place] 40 - 60 mg/dL 49 VLDL Chol, [place] 5 - 40 mg/dL 11 LDL Chol, [place] 0 - 129 mg/dL 132 (H) TC HDL Risk, [place] 0.0 - 5.0 3.9 TSH, [place] 0.400 - 5.500 uIU/mL 2.15 Noted around 6 pound wt loss over the past 3 yrs. Past hx of being on crestor; had stopped years ago and has been able to maintain without medication. Denies any routine exercise. Diet rich in fruits and vegetables; does not limit foods. 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 Takes BB. Lumbago 10/20/2007 03/16/2014 Overview: New episode in 08-05: went to ED and responded to prednisone Dermatophytosis of nail 10/20/2007 06/16/20 13 Overview: To ask insurance about empiric use of Lamisil as of 10-07 Overweight(278.02) 10/20/2007 10/14/2015 documented as of this encounter (statuses as of 12/24/2021) [facility] Narrative* Problem Noted Date Resolved Date Dysuria 01/08/2015 10/14/2015 Bilateral flank pain 01/08/2015 10/14/2015 Vaginal discharge 01/08/2015 10/14/2015 Epigastric pain 06/12/2013 10/14/2015 MVP (mitral valve prolapse) 11/06/201011/28 Other and unspecified hyperlipidemia 01/01/2009 10/14/2015 Overview: LDl 142, HDL 55, TG 64 in 01-05: rec dietary discretion (consider statins if no wt loss) Last Assessment & Plan: Component Latest Ref Rng 11/27/2009 Triglyceride, [place] 30 - 200 mg/dL 56 Cholesterol, [place] 0 - 200 mg/dL 192 HDL Chol, [place] 40 - 60 mg/dL 49 VLDL Chol, [place] 5 - 40 mg/dL 11 LDL Chol, [place] 0 - 129 mg/dL 132 (H) TC HDL Risk, [place] 0.0 - 5.0 3.9 TSH, [place] 0.400 - 5.500 uIU/mL 2.15 Noted around 6 pound wt loss over the past 3 yrs. Past hx of being on crestor; had stopped years ago and has been able to maintain without medication. Denies any routine exercise. Diet rich in fruits and vegetables; does not limit foods. 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 Takes BB. Lumbago 10/20/2007 03/16/2014 Overview: New episode in 08-05: went to ED and responded to prednisone Dermatophytosis of nail 10/20/2007 06/16/20 13 Overview: To ask insurance about empiric use of Lamisil as of 10-07 Overweight(278.02) 10/20/2007 10/14/2015 documented as of this encounter (statuses as of 12/24/2021) [facility] Narrative* Problem Noted Date Resolved Date Dysuria 01/08/2015 10/14/2015 Bilateral flank pain 01/08/2015 10/14/2015 Vaginal discharge 01/08/2015 10/14/2015 Epigastric pain 06/12/2013 10/14/2015 MVP (mitral valve prolapse) 11/06/201011/28 Other and unspecified hyperlipidemia 01/01/2009 10/14/2015 Overview: LDl 142, HDL 55, TG 64 in 01-05: rec dietary discretion (consider statins if no wt loss) Last Assessment & Plan: Component Latest Ref Rng 11/27/2009 Triglyceride, [place] 30 - 200 mg/dL 56 Cholesterol, [place] 0 - 200 mg/dL 192 HDL Chol, [place] 40 - 60 mg/dL 49 VLDL Chol, [place] 5 - 40 mg/dL 11 LDL Chol, [place] 0 - 129 mg/dL 132 (H) TC HDL Risk, [place] 0.0 - 5.0 3.9 TSH, [place] 0.400 - 5.500 uIU/mL 2.15 Noted around 6 pound wt loss over the past 3 yrs. Past hx of being on crestor; had stopped years ago and has been able to maintain without medication. Denies any routine exercise. Diet rich in fruits and vegetables; does not limit foods. 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 Takes BB. Lumbago 10/20/2007 03/16/2014 Overview: New episode in 08-05: went to ED and responded to prednisone Dermatophytosis of nail 10/20/2007 06/16/20 13 Overview: To ask insurance about empiric use of Lamisil as of 10-07 Overweight(278.02) 10/20/2007 10/14/2015 documented as of this encounter (statuses as of 12/25/2021) [facility] Narrative* Problem Noted Date Resolved Date Dysuria 01/08/2015 10/14/2015 Bilateral flank pain 01/08/2015 10/14/2015 Vaginal discharge 01/08/2015 10/14/2015 Epigastric pain 06/12/2013 10/14/2015 MVP (mitral valve prolapse) 11/06/201011/28 Other and unspecified hyperlipidemia 01/01/2009 10/14/2015 Overview: LDl 142, HDL 55, TG 64 in 01-05: rec dietary discretion (consider statins if no wt loss) Last Assessment & Plan: Component Latest Ref Rng 11/27/2009 Triglyceride, [place] 30 - 200 mg/dL 56 Cholesterol, [place] 0 - 200 mg/dL 192 HDL Chol, [place] 40 - 60 mg/dL 49 VLDL Chol, [place] 5 - 40 mg/dL 11 LDL Chol, [place] 0 - 129 mg/dL 132 (H) TC HDL Risk, [place] 0.0 - 5.0 3.9 TSH, [place] 0.400 - 5.500 uIU/mL 2.15 Noted around 6 pound wt loss over the past 3 yrs. Past hx of being on crestor; had stopped years ago and has been able to maintain without medication. Denies any routine exercise. Diet rich in fruits and vegetables; does not limit foods. 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 Takes BB. Lumbago 10/20/2007 03/16/2014 Overview: New episode in 08-05: went to ED and responded to prednisone Dermatophytosis of nail 10/20/2007 06/16/20 13 Overview: To ask insurance about empiric use of Lamisil as of 2- Overweight(278.02) 10/20/2007 10/14/2015 documented as of this encounter (statuses as of 12/26/2021) [facility] Narrative* Problem Noted Date Resolved Date Dysuria 01/08/2015 10/14/2015 Bilateral flank pain 01/08/2015 10/14/2015 Vaginal discharge 01/08/2015 10/14/2015 Epigastric pain 06/12/2013 10/14/2015 MVP (mitral valve prolapse) 11/06/201011/28 Other and unspecified hyperlipidemia 01/01/2009 10/14/2015 Overview: LDl 142, HDL 55, TG 64 in 01-05: rec dietary discretion (consider statins if no wt loss) Last Assessment & Plan: Component Latest Ref Rng 11/27/2009 Triglyceride, [place] 30 - 200 mg/dL 56 Cholesterol, [place] 0 - 200 mg/dL 192 HDL Chol, [place] 40 - 60 mg/dL 49 VLDL Chol, [place] 5 - 40 mg/dL 11 LDL Chol, [place] 0 - 129 mg/dL 132 (H) TC HDL Risk, [place] 0.0 - 5.0 3.9 TSH, [place] 0.400 - 5.500 uIU/mL 2.15 Noted around 6 pound wt loss over the past 3 yrs. Past hx of being on crestor; had stopped years ago and has been able to maintain without medication. Denies any routine exercise. Diet rich in fruits and vegetables; does not limit foods. 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 Takes BB. Lumbago 10/20/2007 03/16/2014 Overview: New episode in 08-05: went to ED and responded to prednisone Dermatophytosis of nail 10/20/2007 06/16/20 13 Overview: To ask insurance about empiric use of Lamisil as of 10-07 Overweight(278.02) 10/20/2007 10/14/2015 documented as of this encounter (statuses as of 01/01/2022) [facility] Narrative* Problem Noted Date Resolved Date Dysuria 01/08/2015 10/14/2015 Bilateral flank pain 01/08/2015 10/14/2015 Vaginal discharge 01/08/2015 10/14/2015 Epigastric pain 06/12/2013 10/14/2015 MVP (mitral valve prolapse) 11/06/201011/28 Other and unspecified hyperlipidemia 01/01/2009 10/14/2015 Overview: LDl 142, HDL 55, TG 64 in 01-05: rec dietary discretion (consider statins if no wt loss) Last Assessment & Plan: Component Latest Ref Rng 11/27/2009 Triglyceride, [place] 30 - 200 mg/dL 56 Cholesterol, [place] 0 - 200 mg/dL 192 HDL Chol, [place] 40 - 60 mg/dL 49 VLDL Chol, [place] 5 - 40 mg/dL 11 LDL Chol, [place] 0 - 129 mg/dL 132 (H) TC HDL Risk, [place] 0.0 - 5.0 3.9 TSH, [place] 0.400 - 5.500 uIU/mL 2.15 Noted around 6 pound wt loss over the past 3 yrs. Past hx of being on crestor; had stopped years ago and has been able to maintain without medication. Denies any routine exercise. Diet rich in fruits and vegetables; does not limit foods. 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 Takes BB. Lumbago 10/20/2007 03/16/2014 Overview: New episode in 08-05: went to ED and responded to prednisone Dermatophytosis of nail 10/20/2007 06/16/20 13 Overview: To ask insurance about empiric use of Lamisil as of 10-07 Overweight(278.02) 10/20/2007 10/14/2015 documented as of this encounter (statuses as of 01/06/2022) [facility] Narrative* Problem Noted Date Resolved Date Dysuria 01/08/2015 10/14/2015 Bilateral flank pain 01/08/2015 10/14/2015 Vaginal discharge 01/08/2015 10/14/2015 Epigastric pain 06/12/2013 10/14/2015 MVP (mitral valve prolapse) 11/06/201011/28 Other and unspecified hyperlipidemia 01/01/2009 10/14/2015 Overview: LDl 142, HDL 55, TG 64 in 01-05: rec dietary discretion (consider statins if no wt loss) Last Assessment & Plan: Component Latest Ref Rng 11/27/2009 Triglyceride, [place] 30 - 200 mg/dL 56 Cholesterol, [place] 0 - 200 mg/dL 192 HDL Chol, [place] 40 - 60 mg/dL 49 VLDL Chol, [place] 5 - 40 mg/dL 11 LDL Chol, [place] 0 - 129 mg/dL 132 (H) TC HDL Risk, [place] 0.0 - 5.0 3.9 TSH, [place] 0.400 - 5.500 uIU/mL 2.15 Noted around 6 pound wt loss over the past 3 yrs. Past hx of being on crestor; had stopped years ago and has been able to maintain without medication. Denies any routine exercise. Diet rich in fruits and vegetables; does not limit foods. 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 Takes BB. Lumbago 10/20/2007 03/16/2014 Overview: New episode in 08-05: went to ED and responded to prednisone Dermatophytosis of nail 10/20/2007 06/16/20 13 Overview: To ask insurance about empiric use of Lamisil as of 10-07 Overweight(278.02) 10/20/2007 10/14/2015 documented as of this encounter (statuses as of 01/15/2022) [facility] Narrative* Problem Noted Date Resolved Date Dysuria 01/08/2015 10/14/2015 Bilateral flank pain 01/08/2015 10/14/2015 Vaginal discharge 01/08/2015 10/14/2015 Epigastric pain 06/12/2013 10/14/2015 MVP (mitral valve prolapse) 11/06/201011/28 Other and unspecified hyperlipidemia 01/01/2009 10/14/2015 Overview: LDl 142, HDL 55, TG 64 in 01-05: rec dietary discretion (consider statins if no wt loss) Last Assessment & Plan: Component Latest Ref Rng 11/27/2009 Triglyceride, [place] 30 - 200 mg/dL 56 Cholesterol, [place] 0 - 200 mg/dL 192 HDL Chol, [place] 40 - 60 mg/dL 49 VLDL Chol, [place] 5 - 40 mg/dL 11 LDL Chol, [place] 0 - 129 mg/dL 132 (H) TC HDL Risk, [place] 0.0 - 5.0 3.9 TSH, [place] 0.400 - 5.500 uIU/mL 2.15 Noted around 6 pound wt loss over the past 3 yrs. Past hx of being on crestor; had stopped years ago and has been able to maintain without medication. Denies any routine exercise. Diet rich in fruits and vegetables; does not limit foods. 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 Takes BB. Lumbago 10/20/2007 03/16/2014 Overview: New episode in 08-05: went to ED and responded to prednisone Dermatophytosis of nail 10/20/2007 06/16/20 13 Overview: To ask insurance about empiric use of Lamisil as of 10-07 Overweight(278.02) 10/20/2007 10/14/2015 documented as of this encounter (statuses as of 01/28/2022) [facility] Narrative* Problem Noted Date Resolved Date Dysuria 01/08/2015 10/14/2015 Bilateral flank pain 01/08/2015 10/14/2015 Vaginal discharge 01/08/2015 10/14/2015 Epigastric pain 06/12/2013 10/14/2015 MVP (mitral valve prolapse) 11/06/201011/28 Other and unspecified hyperlipidemia 01/01/2009 10/14/2015 Overview: LDl 142, HDL 55, TG 64 in 01-05: rec dietary discretion (consider statins if no wt loss) Last Assessment & Plan: Component Latest Ref Rng 11/27/2009 Triglyceride, [place] 30 - 200 mg/dL 56 Cholesterol, [place] 0 - 200 mg/dL 192 HDL Chol, [place] 40 - 60 mg/dL 49 VLDL Chol, [place] 5 - 40 mg/dL 11 LDL Chol, [place] 0 - 129 mg/dL 132 (H) TC HDL Risk, [place] 0.0 - 5.0 3.9 TSH, [place] 0.400 - 5.500 uIU/mL 2.15 Noted around 6 pound wt loss over the past 3 yrs. Past hx of being on crestor; had stopped years ago and has been able to maintain without medication. Denies any routine exercise. Diet rich in fruits and vegetables; does not limit foods. 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 Takes BB. Lumbago 10/20/2007 03/16/2014 Overview: New episode in 08-05: went to ED and responded to prednisone Dermatophytosis of nail 10/20/2007 06/16/20 13 Overview: To ask insurance about empiric use of Lamisil as of 2-08 Overweight(278.02) 10/20/2007 10/14/2015 documented as of this encounter (statuses as of 01/29/2022) [facility] Narrative* Problem Noted Date Resolved Date Dysuria 01/08/2015 10/14/2015 Bilateral flank pain 01/08/2015 10/14/2015 Vaginal discharge 01/08/2015 10/14/2015 Epigastric pain 06/12/2013 10/14/2015 MVP (mitral valve prolapse) 11/06/201011/28 Other and unspecified hyperlipidemia 01/01/2009 10/14/2015 Overview: LDl 142, HDL 55, TG 64 in 01-05: rec dietary discretion (consider statins if no wt loss) Last Assessment & Plan: Component Latest Ref Rng 11/27/2009 Triglyceride, [place] 30 - 200 mg/dL 56 Cholesterol, [place] 0 - 200 mg/dL 192 HDL Chol, [place] 40 - 60 mg/dL 49 VLDL Chol, [place] 5 - 40 mg/dL 11 LDL Chol, [place] 0 - 129 mg/dL 132 (H) TC HDL Risk, [place] 0.0 - 5.0 3.9 TSH, [place] 0.400 - 5.500 uIU/mL 2.15 Noted around 6 pound wt loss over the past 3 yrs. Past hx of being on crestor; had stopped years ago and has been able to maintain without medication. Denies any routine exercise. Diet rich in fruits and vegetables; does not limit foods. 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 Takes BB. Lumbago 10/20/2007 03/16/2014 Overview: New episode in 08-05: went to ED and responded to prednisone Dermatophytosis of nail 10/20/2007 06/16/20 13 Overview: To ask insurance about empiric use of Lamisil as of 2-08 Overweight(278.02) 10/20/2007 10/14/2015 documented as of this encounter (statuses as of 01/30/2022) [facility] Narrative* Problem Noted Date Resolved Date Dysuria 01/08/2015 10/14/2015 Bilateral flank pain 01/08/2015 10/14/2015 Vaginal discharge 01/08/2015 10/14/2015 Epigastric pain 06/12/2013 10/14/2015 MVP (mitral valve prolapse) 11/06/201011/28 Other and unspecified hyperlipidemia 01/01/2009 10/14/2015 Overview: LDl 142, HDL 55, TG 64 in 01-05: rec dietary discretion (consider statins if no wt loss) Last Assessment & Plan: Component Latest Ref Rng 11/27/2009 Triglyceride, [place] 30 - 200 mg/dL 56 Cholesterol, [place] 0 - 200 mg/dL 192 HDL Chol, [place] 40 - 60 mg/dL 49 VLDL Chol, [place] 5 - 40 mg/dL 11 LDL Chol, [place] 0 - 129 mg/dL 132 (H) TC HDL Risk, [place] 0.0 - 5.0 3.9 TSH, [place] 0.400 - 5.500 uIU/mL 2.15 Noted around 6 pound wt loss over the past 3 yrs. Past hx of being on crestor; had stopped years ago and has been able to maintain without medication. Denies any routine exercise. Diet rich in fruits and vegetables; does not limit foods. 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 Takes BB. Lumbago 10/20/2007 03/16/2014 Overview: New episode in 08-05: went to ED and responded to prednisone Dermatophytosis of nail 10/20/2007 06/16/20 13 Overview: To ask insurance about empiric use of Lamisil as of 10-07 Overweight(278.02) 10/20/2007 10/14/2015 documented as of this encounter (statuses as of 02/04/2022) [facility] History of Past illness Narrative* Problem Noted Date Resolved Date Dysuria 01/08/2015 10/14/2015 Bilateral flank pain 01/08/2015 10/14/2015 Vaginal discharge 01/08/2015 10/14/2015 Epigastric pain 06/12/2013 10/14/2015 MVP (mitral valve prolapse) 11/06/201011/28 Other and unspecified hyperlipidemia 01/01/2009 10/14/2015 Overview: LDl 142, HDL 55, TG 64 in 01-05: rec dietary discretion (consider statins if no wt loss) Last Assessment & Plan: Component Latest Ref Rng 11/27/2009 Triglyceride, [place] 30 - 200 mg/dL 56 Cholesterol, [place] 0 - 200 mg/dL 192 HDL Chol, [place] 40 - 60 mg/dL 49 VLDL Chol, [place] 5 - 40 mg/dL 11 LDL Chol, [place] 0 - 129 mg/dL 132 (H) TC HDL Risk, [place] 0.0 - 5.0 3.9 TSH, [place] 0.400 - 5.500 uIU/mL 2.15 Noted around 6 pound wt loss over the past 3 yrs. Past hx of being on crestor; had stopped years ago and has been able to maintain without medication. Denies any routine exercise. Diet rich in fruits and vegetables; does not limit foods. 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 Takes BB. Lumbago 10/20/2007 03/16/2014 Overview: New episode in 08-05: went to ED and responded to prednisone Dermatophytosis of nail 10/20/2007 06/16/20 13 Overview: To ask insurance about empiric use of Lamisil as of 10-07 Overweight(278.02) 10/20/2007 10/14/2015 documented as of this encounter (statuses as of 02/17/2022) [facility] History of Past illness Narrative* Problem Noted Date Resolved Date Dysuria 01/08/2015 10/14/2015 Bilateral flank pain 01/08/2015 10/14/2015 Vaginal discharge 01/08/2015 10/14/2015 Epigastric pain 06/12/2013 10/14/2015 MVP (mitral valve prolapse) 11/06/201011/28 Other and unspecified hyperlipidemia 01/01/2009 10/14/2015 Overview: LDl 142, HDL 55, TG 64 in 01-05: rec dietary discretion (consider statins if no wt loss) Last Assessment & Plan: Component Latest Ref Rng 11/27/2009 Triglyceride, [place] 30 - 200 mg/dL 56 Cholesterol, [place] 0 - 200 mg/dL 192 HDL Chol, [place] 40 - 60 mg/dL 49 VLDL Chol, [place] 5 - 40 mg/dL 11 LDL Chol, [place] 0 - 129 mg/dL 132 (H) TC HDL Risk, [place] 0.0 - 5.0 3.9 TSH, [place] 0.400 - 5.500 uIU/mL 2.15 Noted around 6 pound wt loss over the past 3 yrs. Past hx of being on crestor; had stopped years ago and has been able to maintain without medication. Denies any routine exercise. Diet rich in fruits and vegetables; does not limit foods. 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 Takes BB. Lumbago 10/20/2007 03/16/2014 Overview: New episode in 08-05: went to ED and responded to prednisone Dermatophytosis of nail 10/20/2007 06/16/20 13 Overview: To ask insurance about empiric use of Lamisil as of 10-07 Overweight(278.02) 10/20/2007 10/14/2015 documented as of this encounter (statuses as of 04/22/2022) [facility] History of Past illness Narrative* Problem Noted Date Resolved Date Dysuria 01/08/2015 10/14/2015 Bilateral flank pain 01/08/2015 10/14/2015 Vaginal discharge 01/08/2015 10/14/2015 Epigastric pain 06/12/2013 10/14/2015 MVP (mitral valve prolapse) 11/06/201011/28 Other and unspecified hyperlipidemia 01/01/2009 10/14/2015 Overview: LDl 142, HDL 55, TG 64 in 01-05: rec dietary discretion (consider statins if no wt loss) Last Assessment & Plan: Component Latest Ref Rng 11/27/2009 Triglyceride, [place] 30 - 200 mg/dL 56 Cholesterol, [place] 0 - 200 mg/dL 192 HDL Chol, [place] 40 - 60 mg/dL 49 VLDL Chol, [place] 5 - 40 mg/dL 11 LDL Chol, [place] 0 - 129 mg/dL 132 (H) TC HDL Risk, [place] 0.0 - 5.0 3.9 TSH, [place] 0.400 - 5.500 uIU/mL 2.15 Noted around 6 pound wt loss over the past 3 yrs. Past hx of being on crestor; had stopped years ago and has been able to maintain without medication. Denies any routine exercise. Diet rich in fruits and vegetables; does not limit foods. 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 Takes BB. Lumbago 10/20/2007 03/16/2014 Overview: New episode in 08-05: went to ED and responded to prednisone Dermatophytosis of nail 10/20/2007 06/16/20 13 Overview: To ask insurance about empiric use of Lamisil as of 10-07 Overweight(278.02) 10/20/2007 10/14/2015 documented as of this encounter (statuses as of 05/13/2022) [facility] History of Past illness Narrative* Problem Noted Date Resolved Date Dysuria 01/08/2015 10/14/2015 Bilateral flank pain 01/08/2015 10/14/2015 Vaginal discharge 01/08/2015 10/14/2015 Epigastric pain 06/12/2013 10/14/2015 MVP (mitral valve prolapse) 11/06/201011/282 Other and unspecified hyperlipidemia 01/01/2009 10/14/2015 Overview: LDl 142, HDL 55, TG 64 in 01-05: rec dietary discretion (consider statins if no wt loss) Last Assessment & Plan: Component Latest Ref Rng 11/27/2009 Triglyceride, [place] 30 - 200 mg/dL 56 Cholesterol, [place] 0 - 200 mg/dL 192 HDL Chol, [place] 40 - 60 mg/dL 49 VLDL Chol, [place] 5 - 40 mg/dL 11 LDL Chol, [place] 0 - 129 mg/dL 132 (H) TC HDL Risk, [place] 0.0 - 5.0 3.9 TSH, [place] 0.400 - 5.500 uIU/mL 2.15 Noted around 6 pound wt loss over the past 3 yrs. Past hx of being on crestor; had stopped years ago and has been able to maintain without medication. Denies any routine exercise. Diet rich in fruits and vegetables; does not limit foods. 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 Takes BB. Lumbago 10/20/2007 03/16/2014 Overview: New episode in 08-05: went to ED and responded to prednisone Dermatophytosis of nail 10/20/2007 06/16/20 13 Overview: To ask insurance about empiric use of Lamisil as of 2-08 Overweight(278.02) 10/20/2007 10/14/2015 documented as of this encounter (statuses as of 06/30/2022) [facility] History of Past illness Narrative* Problem Noted Date Resolved Date Dysuria 01/08/2015 10/14/2015 Bilateral flank pain 01/08/2015 10/14/2015 Vaginal discharge 01/08/2015 10/14/2015 Epigastric pain 06/12/2013 10/14/2015 MVP (mitral valve prolapse) 11/06/201011/28 Other and unspecified hyperlipidemia 01/01/2009 10/14/2015 Overview: LDl 142, HDL 55, TG 64 in 01-05: rec dietary discretion (consider statins if no wt loss) Last Assessment & Plan: Component Latest Ref Rng 11/27/2009 Triglyceride, [place] 30 - 200 mg/dL 56 Cholesterol, [place] 0 - 200 mg/dL 192 HDL Chol, [place] 40 - 60 mg/dL 49 VLDL Chol, [place] 5 - 40 mg/dL 11 LDL Chol, [place] 0 - 129 mg/dL 132 (H) TC HDL Risk, [place] 0.0 - 5.0 3.9 TSH, [place] 0.400 - 5.500 uIU/mL 2.15 Noted around 6 pound wt loss over the past 3 yrs. Past hx of being on crestor; had stopped years ago and has been able to maintain without medication. Denies any routine exercise. Diet rich in fruits and vegetables; does not limit foods. 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 Takes BB. Lumbago 10/20/2007 03/16/2014 Overview: New episode in 08-05: went to ED and responded to prednisone Dermatophytosis of nail 10/20/2007 06/16/20 13 Overview: To ask insurance about empiric use of Lamisil as of 10-07 Overweight(278.02) 10/20/2007 10/14/2015 documented as of this encounter (statuses as of 07/02/2022) [facility] History of Past illness Narrative* Problem Noted Date Resolved Date Dysuria 01/08/2015 10/14/2015 Bilateral flank pain 01/08/2015 10/14/2015 Vaginal discharge 01/08/2015 10/14/2015 Epigastric pain 06/12/2013 10/14/2015 MVP (mitral valve prolapse) 11/06/201011/28 Other and unspecified hyperlipidemia 01/01/2009 10/14/2015 Overview: LDl 142, HDL 55, TG 64 in 01-05: rec dietary discretion (consider statins if no wt loss) Last Assessment & Plan: Component Latest Ref Rng 11/27/2009 Triglyceride, [place] 30 - 200 mg/dL 56 Cholesterol, [place] 0 - 200 mg/dL 192 HDL Chol, [place] 40 - 60 mg/dL 49 VLDL Chol, [place] 5 - 40 mg/dL 11 LDL Chol, [place] 0 - 129 mg/dL 132 (H) TC HDL Risk, [place] 0.0 - 5.0 3.9 TSH, [place] 0.400 - 5.500 uIU/mL 2.15 Noted around 6 pound wt loss over the past 3 yrs. Past hx of being on crestor; had stopped years ago and has been able to maintain without medication. Denies any routine exercise. Diet rich in fruits and vegetables; does not limit foods. 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 Takes BB. Lumbago 10/20/2007 03/16/2014 Overview: New episode in 08-05: went to ED and responded to prednisone Dermatophytosis of nail 10/20/2007 06/16/20 13 Overview: To ask insurance about empiric use of Lamisil as of 10-07 Overweight(278.02) 10/20/2007 10/14/2015 documented as of this encounter (statuses as of 07/03/2022) [facility] History of Past illness Narrative* Problem Noted Date Resolved Date Dysuria 01/08/2015 10/14/2015 Bilateral flank pain 01/08/2015 10/14/2015 Vaginal discharge 01/08/2015 10/14/2015 Epigastric pain 06/12/2013 10/14/2015 MVP (mitral valve prolapse) 11/06/201011/28 Other and unspecified hyperlipidemia 01/01/2009 10/14/2015 Overview: LDl 142, HDL 55, TG 64 in 01-05: rec dietary discretion (consider statins if no wt loss) Last Assessment & Plan: Component Latest Ref Rng 11/27/2009 Triglyceride, [place] 30 - 200 mg/dL 56 Cholesterol, [place] 0 - 200 mg/dL 192 HDL Chol, [place] 40 - 60 mg/dL 49 VLDL Chol, [place] 5 - 40 mg/dL 11 LDL Chol, [place] 0 - 129 mg/dL 132 (H) TC HDL Risk, [place] 0.0 - 5.0 3.9 TSH, [place] 0.400 - 5.500 uIU/mL 2.15 Noted around 6 pound wt loss over the past 3 yrs. Past hx of being on crestor; had stopped years ago and has been able to maintain without medication. Denies any routine exercise. Diet rich in fruits and vegetables; does not limit foods. 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 Takes BB. Lumbago 10/20/2007 03/16/2014 Overview: New episode in 08-05: went to ED and responded to prednisone Dermatophytosis of nail 10/20/2007 06/16/20 13 Overview: To ask insurance about empiric use of Lamisil as of 10-07 Overweight(278.02) 10/20/2007 10/14/2015 documented as of this encounter (statuses as of 10/15/2022) [facility] History of Past illness Narrative* Problem Noted Date Resolved Date Dysuria 01/08/2015 10/14/2015 Bilateral flank pain 01/08/2015 10/14/2015 Vaginal discharge 01/08/2015 10/14/2015 Epigastric pain 06/12/2013 10/14/2015 MVP (mitral valve prolapse) 11/06/201011/28 Other and unspecified hyperlipidemia 01/01/2009 10/14/2015 Overview: LDl 142, HDL 55, TG 64 in 01-05: rec dietary discretion (consider statins if no wt loss) Last Assessment & Plan: Component Latest Ref Rng 11/27/2009 Triglyceride, [place] 30 - 200 mg/dL 56 Cholesterol, [place] 0 - 200 mg/dL 192 HDL Chol, [place] 40 - 60 mg/dL 49 VLDL Chol, [place] 5 - 40 mg/dL 11 LDL Chol, [place] 0 - 129 mg/dL 132 (H) TC HDL Risk, [place] 0.0 - 5.0 3.9 TSH, [place] 0.400 - 5.500 uIU/mL 2.15 Noted around 6 pound wt loss over the past 3 yrs. Past hx of being on crestor; had stopped years ago and has been able to maintain without medication. Denies any routine exercise. Diet rich in fruits and vegetables; does not limit foods. 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 Takes BB. Lumbago 10/20/2007 03/16/2014 Overview: New episode in 08-05: went to ED and responded to prednisone Dermatophytosis of nail 10/20/2007 06/16/20 13 Overview: To ask insurance about empiric use of Lamisil as of 10-07 Overweight(278.02) 10/20/2007 10/14/2015 documented as of this encounter (statuses as of 01/11/2023) [facility] History of Past illness Narrative* Problem Noted Date Resolved Date Dysuria 01/08/2015 10/14/2015 Bilateral flank pain 01/08/2015 10/14/2015 Vaginal discharge 01/08/2015 10/14/2015 Epigastric pain 06/12/2013 10/14/2015 MVP (mitral valve prolapse) 11/06/201011/28 Other and unspecified hyperlipidemia 01/01/2009 10/14/2015 Overview: LDl 142, HDL 55, TG 64 in 01-05: rec dietary discretion (consider statins if no wt loss) Last Assessment & Plan: Component Latest Ref Rng 11/27/2009 Triglyceride, [place] 30 - 200 mg/dL 56 Cholesterol, [place] 0 - 200 mg/dL 192 HDL Chol, [place] 40 - 60 mg/dL 49 VLDL Chol, [place] 5 - 40 mg/dL 11 LDL Chol, [place] 0 - 129 mg/dL 132 (H) TC HDL Risk, [place] 0.0 - 5.0 3.9 TSH, [place] 0.400 - 5.500 uIU/mL 2.15 Noted around 6 pound wt loss over the past 3 yrs. Past hx of being on crestor; had stopped years ago and has been able to maintain without medication. Denies any routine exercise. Diet rich in fruits and vegetables; does not limit foods. 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 Takes BB. Lumbago 10/20/2007 03/16/2014 Overview: New episode in 08-05: went to ED and responded to prednisone Dermatophytosis of nail 10/20/2007 06/16/20 13 Overview: To ask insurance about empiric use of Lamisil as of 2-08 Overweight(278.02) 10/20/2007 10/14/2015 documented as of this encounter (statuses as of 02/23/2023) [facility] History of Past illness Narrative* Problem Noted Date Diagnosed Date Resolved Date Dysuria 01/08/2015 10/14/2015 Bilateral flank pain 01/08/2015 016 Vaginal discharge 01/08/2015 10/14/2015 Epigastric pain 06/12/2013 10/14/2015 MVP (mitral valve prolapse) 11/06/2010 12/12/2021 Other and unspecified hyperlipidemia 01/01/2009 10/14/2015 Overview: LDl 142, HDL 55, TG 64 in 01-05: rec dietary discretion (consider statins if no wt loss) Last Assessment & Plan: Component Latest Ref Rng 11/27/2009 Triglyceride, [place] 30 - 200 mg/dL 56 Cholesterol, [place] 0 - 200 mg/dL 192 HDL Chol, [place] 40 - 60 mg/dL 49 VLDL Chol, [place] 5 - 40 mg/dL 11 LDL Chol, [place] 0 - 129 mg/dL 132 (H) TC HDL Risk, [place] 0.0 - 5.0 3.9 TSH, [place] 0.400 - 5.500 uIU/mL 2.15 Noted around 6 pound wt loss over the past 3 yrs. Past hx of being on crestor; had stopped years ago and has been able to maintain without medication. Denies any routine exercise. Diet rich in fruits and vegetables; does not limit foods. 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 Takes BB. Lumbago 10/20/2007 03/16/2014 Overview: New episode in 08-05: went to ED and responded to prednisone Dermatophytosis of nail 10/20/200705/30 Overview: To ask insurance about empiric use of Lamisil as of 10-07 Overweight(278.02) 10/20/2007 6 documented as of this encounter (statuses as of 04/06/2023) [facility] History of Past illness Narrative* Problem Noted Date Diagnosed Date Resolved Date Dysuria 01/08/2015 10/14/2015 Bilateral flank pain 01/08/2015 016 Vaginal discharge 01/08/2015 10/14/2015 Epigastric pain 06/12/2013 10/14/2015 MVP (mitral valve prolapse) 11/06/2010 12/12/2021 Other and unspecified hyperlipidemia 01/01/2009 10/14/2015 Overview: LDl 142, HDL 55, TG 64 in 01-05: rec dietary discretion (consider statins if no wt loss) Last Assessment & Plan: Component Latest Ref Rng 11/27/2009 Triglyceride, [place] 30 - 200 mg/dL 56 Cholesterol, [place] 0 - 200 mg/dL 192 HDL Chol, [place] 40 - 60 mg/dL 49 VLDL Chol, [place] 5 - 40 mg/dL 11 LDL Chol, [place] 0 - 129 mg/dL 132 (H) TC HDL Risk, [place] 0.0 - 5.0 3.9 TSH, [place] 0.400 - 5.500 uIU/mL 2.15 Noted around 6 pound wt loss over the past 3 yrs. Past hx of being on crestor; had stopped years ago and has been able to maintain without medication. Denies any routine exercise. Diet rich in fruits and vegetables; does not limit foods. 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 Takes BB. Lumbago 10/20/2007 03/16/2014 Overview: New episode in 08-05: went to ED and responded to prednisone Dermatophytosis of nail 10/20/200705/30 Overview: To ask insurance about empiric use of Lamisil as of 10-07 Overweight(278.02) 10/20/2007 6 documented as of this encounter (statuses as of 04/16/2023) [facility] History of Past illness Narrative* Problem Noted Date Diagnosed Date Resolved Date Dysuria 01/08/2015 10/14/2015 Bilateral flank pain 01/08/2015 016 Vaginal discharge 01/08/2015 10/14/2015 Epigastric pain 06/12/2013 10/14/2015 MVP (mitral valve prolapse) 11/06/2010 12/12/2021 Other and unspecified hyperlipidemia 01/01/2009 10/14/2015 Overview: LDl 142, HDL 55, TG 64 in 01-05: rec dietary discretion (consider statins if no wt loss) Last Assessment & Plan: Component Latest Ref Rng 11/27/2009 Triglyceride, [place] 30 - 200 mg/dL 56 Cholesterol, [place] 0 - 200 mg/dL 192 HDL Chol, [place] 40 - 60 mg/dL 49 VLDL Chol, [place] 5 - 40 mg/dL 11 LDL Chol, [place] 0 - 129 mg/dL 132 (H) TC HDL Risk, [place] 0.0 - 5.0 3.9 TSH, [place] 0.400 - 5.500 uIU/mL 2.15 Noted around 6 pound wt loss over the past 3 yrs. Past hx of being on crestor; had stopped years ago and has been able to maintain without medication. Denies any routine exercise. Diet rich in fruits and vegetables; does not limit foods. 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 Takes BB. Lumbago 10/20/2007 03/16/2014 Overview: New episode in 08-05: went to ED and responded to prednisone Dermatophytosis of nail 10/20/200705/30 Overview: To ask insurance about empiric use of Lamisil as of 10-07 Overweight(278.02) 10/20/2007 6 documented as of this encounter (statuses as of 04/21/2023) [facility] of Past illness Narrative* Problem Noted Date Diagnosed Date Resolved Date Dysuria 01/08/2015 10/14/2015 Bilateral flank pain 01/08/2015 016 Vaginal discharge 01/08/2015 10/14/2015 Epigastric pain 06/12/2013 10/14/2015 MVP (mitral valve prolapse) 11/06/2010 12/12/2021 Other and unspecified hyperlipidemia 01/01/2009 10/14/2015 Overview: LDl 142, HDL 55, TG 64 in 01-05: rec dietary discretion (consider statins if no wt loss) Last Assessment & Plan: Component Latest Ref Rng 11/27/2009 Triglyceride, [place] 30 - 200 mg/dL 56 Cholesterol, [place] 0 - 200 mg/dL 192 HDL Chol, [place] [place] 40 - 60 mg/dL 49 VLDL Chol, [place] 5 - 40 mg/dL 11 LDL Chol, [place] 0 - 129 mg/dL 132 (H) TC HDL Risk, [place] 0.0 - 5.0 3.9 TSH, [place] 0.400 - 5.500 uIU/mL 2.15 Noted around 6 pound wt loss over the past 3 yrs. Past hx of being on crestor; had stopped years ago and has been able to maintain without medication. Denies any routine exercise. Diet rich in fruits and vegetables; does not limit foods. 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 Takes BB. Lumbago 10/20/2007 03/16/2014 Overview: New episode in 08-05: went to ED and responded to prednisone Dermatophytosis of nail 10/20/200705/30 Overview: To ask insurance about empiric use of Lamisil as of 10-07 Overweight(278.02) 10/20/2007 6 documented as of this encounter (statuses as of 04/22/2023) [facility] History of Past illness Narrative* Problem Noted Date Diagnosed Date Resolved Date Dysuria 01/08/2015 10/14/2015 Bilateral flank pain 01/08/2015 016 Vaginal discharge 01/08/2015 10/14/2015 Epigastric pain 06/12/2013 10/14/2015 MVP (mitral valve prolapse) 11/06/2010 12/12/2021 Other and unspecified hyperlipidemia 01/01/2009 10/14/2015 Overview: LDl 142, HDL 55, TG 64 in 01-05: rec dietary discretion (consider statins if no wt loss) Last Assessment & Plan: Component Latest Ref Rng 11/27/2009 Triglyceride, [place] 30 - 200 mg/dL 56 Cholesterol, [place] 0 - 200 mg/dL 192 HDL Chol, [place] 40 - 60 mg/dL 49 VLDL Chol, [place] 5 - 40 mg/dL 11 LDL Chol, [place] 0 - 129 mg/dL 132 (H) TC HDL Risk, [place] 0.0 - 5.0 3.9 TSH, [place] 0.400 - 5.500 uIU/mL 2.15 Noted around 6 pound wt loss over the past 3 yrs. Past hx of being on crestor; had stopped years ago and has been able to maintain without medication. Denies any routine exercise. Diet rich in fruits and vegetables; does not limit foods. 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 Takes BB. Lumbago 10/20/2007 03/16/2014 Overview: New episode in 08-05: went to ED and responded to prednisone Dermatophytosis of nail 10/20/200705/30 Overview: To ask insurance about empiric use of Lamisil as of 2-08 Overweight(278.02) 10/20/2007 6 documented as of this encounter (statuses as of 05/12/2023) [facility] History of Past illness Narrative* Problem Noted Date Diagnosed Date Resolved Date Dysuria 01/08/2015 10/14/2015 Bilateral flank pain 01/08/2015 016 Vaginal discharge 01/08/2015 10/14/2015 Epigastric pain 06/12/2013 10/14/2015 MVP (mitral valve prolapse) 11/06/2010 12/12/2021 Other and unspecified hyperlipidemia 01/01/2009 10/14/2015 Overview: LDl 142, HDL 55, TG 64 in 01-05: rec dietary discretion (consider statins if no wt loss) Last Assessment & Plan: Component Latest Ref Rng 11/27/2009 Triglyceride, [place] 30 - 200 mg/dL 56 Cholesterol, [place] 0 - 200 mg/dL 192 HDL Chol, [place] 40 - 60 mg/dL 49 VLDL Chol, [place] 5 - 40 mg/dL 11 LDL Chol, [place] 0 - 129 mg/dL 132 (H) TC HDL Risk, [place] 0.0 - 5.0 3.9 TSH, [place] 0.400 - 5.500 uIU/mL 2.15 Noted around 6 pound wt loss over the past 3 yrs. Past hx of being on crestor; had stopped years ago and has been able to maintain without medication. Denies any routine exercise. Diet rich in fruits and vegetables; does not limit foods. 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 Takes BB. Lumbago 10/20/2007 03/16/2014 Overview: New episode in 08-05: went to ED and responded to prednisone Dermatophytosis of nail 10/20/200705/30 Overview: To ask insurance about empiric use of Lamisil as of 10-07 Overweight(278.02) 10/20/2007 6 documented as of this encounter (statuses as of 05/17/2023) [facility] History of Past illness Narrative* Problem Noted Date Diagnosed Date Resolved Date Dysuria 01/08/2015 10/14/2015 Bilateral flank pain 01/08/2015 016 Vaginal discharge 01/08/2015 10/14/2015 Epigastric pain 06/12/2013 10/14/2015 MVP (mitral valve prolapse) 11/06/2010 12/12/2021 Other and unspecified hyperlipidemia 01/01/2009 10/14/2015 Overview: LDl 142, HDL 55, TG 64 in 01-05: rec dietary discretion (consider statins if no wt loss) Last Assessment & Plan: Component Latest Ref Rng 11/27/2009 Triglyceride, [place] 30 - 200 mg/dL 56 Cholesterol, [place] 0 - 200 mg/dL 192 HDL Chol, [place] 40 - 60 mg/dL 49 VLDL Chol, [place] 5 - 40 mg/dL 11 LDL Chol, [place] 0 - 129 mg/dL 132 (H) TC HDL Risk, [place] 0.0 - 5.0 3.9 TSH, [place] 0.400 - 5.500 uIU/mL 2.15 Noted around 6 pound wt loss over the past 3 yrs. Past hx of being on crestor; had stopped years ago and has been able to maintain without medication. Denies any routine exercise. Diet rich in fruits and vegetables; does not limit foods. 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 Takes BB. Lumbago 10/20/2007 03/16/2014 Overview: New episode in 08-05: went to ED and responded to prednisone Dermatophytosis of nail 10/20/200705/30 Overview: To ask insurance about empiric use of Lamisil as of 10-07 Overweight(278.02) 10/20/2007 6 documented as of this encounter (statuses as of 05/25/2023) [facility] History of Past illness Narrative* Problem Noted Date Diagnosed Date Resolved Date Dysuria 01/08/2015 10/14/2015 Bilateral flank pain 01/08/2015 016 Vaginal discharge 01/08/2015 10/14/2015 Epigastric pain 06/12/2013 10/14/2015 MVP (mitral valve prolapse) 11/06/2010 12/12/2021 Other and unspecified hyperlipidemia 01/01/2009 10/14/2015 Overview: LDl 142, HDL 55, TG 64 in 01-05: rec dietary discretion (consider statins if no wt loss) Last Assessment & Plan: Component Latest Ref Rng 11/27/2009 Triglyceride, [place] 30 - 200 mg/dL 56 Cholesterol, [place] 0 - 200 mg/dL 192 HDL Chol, [place] 40 - 60 mg/dL 49 VLDL Chol, [place] 5 - 40 mg/dL 11 LDL Chol, [place] 0 - 129 mg/dL 132 (H) TC HDL Risk, [place] 0.0 - 5.0 3.9 TSH, [place] 0.400 - 5.500 uIU/mL 2.15 Noted around 6 pound wt loss over the past 3 yrs. Past hx of being on crestor; had stopped years ago and has been able to maintain without medication. Denies any routine exercise. Diet rich in fruits and vegetables; does not limit foods. 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 Takes BB. Lumbago 10/20/2007 03/16/2014 Overview: New episode in 08-05: went to ED and responded to prednisone Dermatophytosis of nail 10/20/200705/30 Overview: To ask insurance about empiric use of Lamisil as of 10-07 Overweight(278.02) 10/20/2007 6 documented as of this encounter (statuses as of 07/13/2023) [facility] History of Past illness Narrative* Problem Noted Date Diagnosed Date Resolved Date Dysuria 01/08/2015 10/14/2015 Bilateral flank pain 01/08/2015 016 Vaginal discharge 01/08/2015 10/14/2015 Epigastric pain 06/12/2013 10/14/2015 MVP (mitral valve prolapse) 11/06/2010 12/12/2021 Other and unspecified hyperlipidemia 01/01/2009 10/14/2015 Overview: LDl 142, HDL 55, TG 64 in 01-05: rec dietary discretion (consider statins if no wt loss) Last Assessment & Plan: Component Latest Ref Rng 11/27/2009 Triglyceride, [place] 30 - 200 mg/dL 56 Cholesterol, [place] 0 - 200 mg/dL 192 HDL Chol, [place] 40 - 60 mg/dL 49 VLDL Chol, [place] 5 - 40 mg/dL 11 LDL Chol, [place] 0 - 129 mg/dL 132 (H) TC HDL Risk, [place] 0.0 - 5.0 3.9 TSH, [place] 0.400 - 5.500 uIU/mL 2.15 Noted around 6 pound wt loss over the past 3 yrs. Past hx of being on crestor; had stopped years ago and has been able to maintain without medication. Denies any routine exercise. Diet rich in fruits and vegetables; does not limit foods. 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 Takes BB. Lumbago 10/20/2007 03/16/2014 Overview: New episode in 08-05: went to ED and responded to prednisone Dermatophytosis of nail 10/20/200705/30 Overview: To ask insurance about empiric use of Lamisil as of 10-07 Overweight(278.02) 10/20/2007 6 documented as of this encounter (statuses as of 07/16/2023) [facility] History of Past illness Narrative* Problem Noted Date Diagnosed Date Resolved Date Dysuria 01/08/2015 10/14/2015 Bilateral flank pain 01/08/2015 016 Vaginal discharge 01/08/2015 10/14/2015 Epigastric pain 06/12/2013 10/14/2015 MVP (mitral valve prolapse) 11/06/2010 12/12/2021 Other and unspecified hyperlipidemia 01/01/2009 10/14/2015 Overview: LDl 142, HDL 55, TG 64 in 01-05: rec dietary discretion (consider statins if no wt loss) Last Assessment & Plan: Component Latest Ref Rng 11/27/2009 Triglyceride, [place] 30 - 200 mg/dL 56 Cholesterol, [place] 0 - 200 mg/dL 192 HDL Chol, [place] 40 - 60 mg/dL 49 VLDL Chol, [place] 5 - 40 mg/dL 11 LDL Chol, [place] 0 - 129 mg/dL 132 (H) TC HDL Risk, [place] 0.0 - 5.0 3.9 TSH, [place] 0.400 - 5.500 uIU/mL 2.15 Noted around 6 pound wt loss over the past 3 yrs. Past hx of being on crestor; had stopped years ago and has been able to maintain without medication. Denies any routine exercise. Diet rich in fruits and vegetables; does not limit foods. 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 Takes BB. Lumbago 10/20/2007 03/16/2014 Overview: New episode in 08-05: went to ED and responded to prednisone Dermatophytosis of nail 10/20/200705/30 Overview: To ask insurance about empiric use of Lamisil as of 10-07 Overweight(278.02) 10/20/2007 6 documented as of this encounter (statuses as of 08/09/2023) [facility] History of Past illness Narrative* Problem Noted Date Diagnosed Date Resolved Date Dysuria 01/08/2015 10/14/2015 Bilateral flank pain 01/08/2015 016 Vaginal discharge 01/08/2015 10/14/2015 Epigastric pain 06/12/2013 10/14/2015 MVP (mitral valve prolapse) 11/06/2010 12/12/2021 Other and unspecified hyperlipidemia 01/01/2009 10/14/2015 Overview: LDl 142, HDL 55, TG 64 in 01-05: rec dietary discretion (consider statins if no wt loss) Last Assessment & Plan: Component Latest Ref Rng 11/27/2009 Triglyceride, [place] 30 - 200 mg/dL 56 Cholesterol, [place] 0 - 200 mg/dL 192 HDL Chol, [place] 40 - 60 mg/dL 49 VLDL Chol, [place] 5 - 40 mg/dL 11 LDL Chol, [place] 0 - 129 mg/dL 132 (H) TC HDL Risk, [place] 0.0 - 5.0 3.9 TSH, [place] 0.400 - 5.500 uIU/mL 2.15 Noted around 6 pound wt loss over the past 3 yrs. Past hx of being on crestor; had stopped years ago and has been able to maintain without medication. Denies any routine exercise. Diet rich in fruits and vegetables; does not limit foods. 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 Takes BB. Lumbago 10/20/2007 03/16/2014 Overview: New episode in 08-05: went to ED and responded to prednisone Dermatophytosis of nail 10/20/200705/30 Overview: To ask insurance about empiric use of Lamisil as of 2 Overweight(278.02) 10/20/2007 6 documented as of this encounter (statuses as of 10/11/2023) [facility] History of Past illness Narrative* Problem Noted Date Diagnosed Date Resolved Date Dysuria 01/08/2015 10/14/2015 Bilateral flank pain 01/08/2015 016 Vaginal discharge 01/08/2015 10/14/2015 Epigastric pain 06/12/2013 10/14/2015 MVP (mitral valve prolapse) 11/06/2010 12/12/2021 Other and unspecified hyperlipidemia 01/01/2009 10/14/2015 Overview: LDl 142, HDL 55, TG 64 in 01-05: rec dietary discretion (consider statins if no wt loss) Last Assessment & Plan: Component Latest Ref Rng 11/27/2009 Triglyceride, [place] 30 - 200 mg/dL 56 Cholesterol, [place] 0 - 200 mg/dL 192 HDL Chol, [place] 40 - 60 mg/dL 49 VLDL Chol, [place] 5 - 40 mg/dL 11 LDL Chol, [place] 0 - 129 mg/dL 132 (H) TC HDL Risk, [place] 0.0 - 5.0 3.9 TSH, [place] 0.400 - 5.500 uIU/mL 2.15 Noted around 6 pound wt loss over the past 3 yrs. Past hx of being on crestor; had stopped years ago and has been able to maintain without medication. Denies any routine exercise. Diet rich in fruits and vegetables; does not limit foods. 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 Takes BB. Lumbago 10/20/2007 03/16/2014 Overview: New episode in 08-05: went to ED and responded to prednisone Dermatophytosis of nail 10/20/200705/30 Overview: To ask insurance about empiric use of Lamisil as of 10-07 Overweight(278.02) 10/20/2007 6 documented as of this encounter (statuses as of 11/11/2023) [facility] of Past illness Narrative* Problem Noted Date Diagnosed Date Resolved Date Dysuria 01/08/2015 10/14/2015 Bilateral flank pain 01/08/2015 016 Vaginal discharge 01/08/2015 10/14/2015 Epigastric pain 06/12/2013 10/14/2015 MVP (mitral valve prolapse) 11/06/2010 12/12/2021 Other and unspecified hyperlipidemia 01/01/2009 10/14/2015 Overview: LDl 142, HDL 55, TG 64 in 01-05: rec dietary discretion (consider statins if no wt loss) Last Assessment & Plan: Component Latest Ref Rng 11/27/2009 Triglyceride, [place] 30 - 200 mg/dL 56 Cholesterol, [place] 0 - 200 mg/dL 192 HDL Chol, [place] 40 - 60 mg/dL 49 VLDL Chol, [place] 5 - 40 mg/dL 11 LDL Chol, [place] 0 - 129 mg/dL 132 (H) TC HDL Risk, [place] 0.0 - 5.0 3.9 TSH, [place] 0.400 - 5.500 uIU/mL 2.15 Noted around 6 pound wt loss over the past 3 yrs. Past hx of being on crestor; had stopped years ago and has been able to maintain without medication. Denies any routine exercise. Diet rich in fruits and vegetables; does not limit foods. 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 Takes BB. Lumbago 10/20/2007 03/16/2014 Overview: New episode in 08-05: went to ED and responded to prednisone Dermatophytosis of nail 10/20/200705/30 Overview: To ask insurance about empiric use of Lamisil as of 10-07 Overweight(278.02) 10/20/2007 6 documented as of this encounter (statuses as of 11/13/2023) [facility] Past illness Narrative* Problem Noted Date Diagnosed Date Resolved Date Dysuria 01/08/2015 10/14/2015 Bilateral flank pain 01/08/2015 016 Vaginal discharge 01/08/2015 10/14/2015 Epigastric pain 06/12/2013 10/14/2015 MVP (mitral valve prolapse) 11/06/2010 12/12/2021 Other and unspecified hyperlipidemia 01/01/2009 10/14/2015 Overview: LDl 142, HDL 55, TG 64 in 01-05: rec dietary discretion (consider statins if no wt loss) Last Assessment & Plan: Component Latest Ref Rng 11/27/2009 Triglyceride, [place] 30 - 200 mg/dL 56 Cholesterol, [place] 0 - 200 mg/dL 192 HDL Chol, [place] 40 - 60 mg/dL 49 VLDL Chol, [place] 5 - 40 mg/dL 11 LDL Chol, [place] 0 - 129 mg/dL 132 (H) TC HDL Risk, [place] 0.0 - 5.0 3.9 TSH, [place] 0.400 - 5.500 uIU/mL 2.15 Noted around 6 pound wt loss over the past 3 yrs. Past hx of being on crestor; had stopped years ago and has been able to maintain without medication. Denies any routine exercise. Diet rich in fruits and vegetables; does not limit foods. 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 Takes BB. Lumbago 10/20/2007 03/16/2014 Overview: New episode in 08-05: went to ED and responded to prednisone Dermatophytosis of nail 10/20/200705/30 Overview: To ask insurance about empiric use of Lamisil as of 10-07 Overweight(278.02) 10/20/2007 6 documented as of this encounter (statuses as of 11/22/2023) [facility] Onset Date Resolution Status Encounter for screening for COVID-[address] [facility] Work Phone: Evaluation note* Diagnosis Chest pain, unspecified type- Primary documented in this encounter [facility] note* Diagnosis Atypical chest pain- Primary Other chest pain Family history of coronary artery disease Family history of ischemic heart disease History of gastritis Personal history of other diseases of digestive system Gastric polyp Benign neoplasm of stomach Fibromyalgia Mylagia and myositis, unspecified Pain of left hip joint Chronic pain of both knees Bilateral hand pain Pain in limb Pure hypercholesterolemia [facility] Diagnosis Palpitations- Primary Atypical chest pain Other chest pain Family history of coronary artery disease Family history of ischemic heart disease ACS (acute coronary syndrome) (HCC) Intermediate coronary syndrome [facility] Diagnosis Palpitations- Primary [facility] noteNo assessment information [facility]* Diagnosis Atypical chest pain- Primary Other chest pain Palpitations [facility]* Diagnosis ACS (acute coronary syndrome) (HCC) Intermediate coronary syndrome [facility] Diagnosis Bruit- Primary Other symptoms involving cardiovascular system Mixed hyperlipidemia [facility]* Diagnosis Raynaud's phenomenon without gangrene- Primary Fibromyalgia Mylagia and myositis, unspecified Positive (antinuclear antibody) Other and unspecified nonspecific immunological findings Vitamin D deficiency Unspecified vitamin D deficiency Pain in joint, multiple sites Pain in left hip Pain in joint, pelvic region and thigh Hypermobile joints Other joint derangement, not elsewhere classified, unspecified site Primary osteoarthritis of right hand Primary localized osteoarthrosis, hand [facility]* Diagnosis Pain in joint, multiple sites Pain in left hip Pain in joint, pelvic region and thigh [facility]* Diagnosis Routine medical exam- Primary Routine general medical examination at a health care facility Pure hypercholesterolemia Costochondritis Tietze's disease Localized primary osteoarthritis of carpometacarpal (CMC) joint of right wrist Encounter for long-term current use of medication Need for vaccination Need for prophylactic vaccination and inoculation against unspecified single disease [facility] Diagnosis Encounter for immunization- Primary Need for other specified prophylactic vaccination against single bacterial disease Screening for cervical cancer Screening for malignant neoplasm of the cervix Encounter for screening mammogram for breast cancer [facility] Diagnosis Positive (antinuclear antibody)- Primary Other and unspecified nonspecific immunological findings Trigger thumb of right hand Trigger finger (acquired) Raynaud's phenomenon without gangrene Hypermobile joints Other joint derangement, not elsewhere classified, unspecified site [facility]* Diagnosis Onset Date Resolution Status Atrophic vaginitis acute Hematuria acute Encounter for routine gynecological examination noneactive Vaginal burning noneactive [facility] Work Phone: Evaluation note* Diagnosis Palpitations- Primary Coronary artery disease involving [place] coronary artery of [place] heart without angina pectoris [facility] Diagnosis Acute pain of right shoulder- Primary [facility]* Diagnosis Positive (antinuclear antibody)- Primary Other and unspecified nonspecific immunological findings Trigger thumb of right hand Trigger finger (acquired) Raynaud's phenomenon without gangrene Hypermobile joints Other joint derangement, not elsewhere classified, unspecified site [facility]* Diagnosis Neoplasm of unspecified behavior of bone, soft tissue, and skin- Primary Dermatofibroma Benign neoplasm of skin, site unspecified Seborrheic keratoses Other seborrheic keratosis documented in this [facility] [facility]* Diagnosis Pure hypercholesterolemia- Primary Vitamin D deficiency Unspecified vitamin D deficiency [facility] Diagnosis Abdominal pain, RUQ (right upper quadrant)- Primary Abdominal pain, right upper quadrant Gastroesophageal reflux disease without esophagitis Esophageal reflux History of gastritis Personal history of other diseases of digestive system [facility] Diagnosis Wellness examination- Primary Gastroesophageal reflux disease without esophagitis Esophageal reflux Raynaud's phenomenon without gangrene Pain of right heel Pain in limb Encounter for immunization Need for other specified prophylactic vaccination against single bacterial disease [facility] Diagnosis Family history of coronary artery disease Family history of ischemic heart disease Pure hypercholesterolemia documented in [facility] Diagnosis Basal cell carcinoma of face Basal cell carcinoma of skin of other and unspecified parts of face [facility] Diagnosis Basal cell carcinoma of face- Primary Basal cell carcinoma of skin of other and unspecified parts of face [facility] Diagnosis Encounter for screening mammogram for breast cancer [facility] Diagnosis Acute left-sided thoracic back pain- Primary [facility] Diagnosis Encounter for screening mammogram for breast cancer [facility] Diagnosis Seborrheic keratoses- Primary Other seborrheic keratosis Multiple nevi Benign neoplasm of skin, site unspecified Lentigines Other dyschromia Siegel angioma Nevus, non-neoplastic Skin cancer screening Screening for malignant neoplasm of the skin Family history of melanoma Family history of other specified malignant neoplasm Hx of nonmelanoma skin cancer Personal history of other malignant neoplasm of skin [facility] Diagnosis Palpitations- Primary Family history of ischemic heart disease Pure hypercholesterolemia Raynaud's phenomenon without gangrene [facility] Diagnosis Acute left-sided thoracic back pain [facility] Diagnosis Pain of right thumb Pain in limb [facility] Diagnosis Wellness examination- Primary Screening for depression Encounter for screening examination for other mental health and behavioral disorders Encounter for therapeutic drug monitoring Vitamin D deficiency Unspecified vitamin D deficiency Memory impairment Memory loss Screening for lipid disorders [facility] Diagnosis Multiple benign nevi- Primary Benign neoplasm of skin, site unspecified Siegel angioma Nevus, non-neoplastic Skin exam, screening for cancer Screening for malignant neoplasm of the skin Hx of nonmelanoma skin cancer Personal history of other malignant neoplasm of skin Lentigines Other dyschromia Seborrheic keratosis Other seborrheic keratosis Contact dermatitis, unspecified contact dermatitis type, unspecified trigger Acrochordon Unspecified hypertrophic and atrophic condition of skin [facility] Diagnosis Family history of coronary artery disease Family history of ischemic heart disease Pure hypercholesterolemia [facility] Diagnosis Dermatofibroma- Primary Benign neoplasm of skin, site unspecified [facility] Diagnosis History of gastritis Personal history of other diseases of digestive system [facility] Diagnosis Bruit- Primary Other symptoms involving cardiovascular system Family history of coronary artery disease Family history of ischemic heart disease Pure hypercholesterolemia Precordial pain Palpitations [facility] Diagnosis Family history of coronary artery disease Family history of ischemic heart disease Pure hypercholesterolemia documented [facility] Diagnosis Encounter for screening mammogram for breast cancer [facility] Diagnosis Mixed hyperlipidemia- Primary [facility] Diagnosis History of gastritis Personal history of other diseases of digestive system Family history of coronary artery disease Family history of ischemic heart disease Pure hypercholesterolemia documented in this encounter [facility]* Diagnosis Allergic contact dermatitis due to metals- Primary Dermatitis due to metals Hx of nonmelanoma skin cancer Personal history of other malignant neoplasm of skin Skin exam, screening for cancer Screening for malignant neoplasm of the skin Multiple benign nevi Benign neoplasm of skin, site unspecified Siegel angioma Nevus, non-neoplastic Lentigines Other dyschromia Seborrheic keratosis Other seborrheic keratosis Dermatofibroma Benign neoplasm of skin, site unspecified Photoaging of skin Other dermatitis due to solar radiation documented in this encounter [facility] Work Phone: Reason for referral (narrative)* Outpatient Procedure (Routine) - Pending Review Specialty Diagnoses / Procedures Referred By Justoac t Referred To Contact [facility] Diagnoses Bruit Procedures US CAROTID ARTERIES TELMA VAS LAB DUPLEX SCAN EXTRACRANIAL ART COMPL BI STUDY Jimmy Quintana MD [address] [place] [address] [facility] [place] [facility] [place] [address] Referral ID Status Reason Start Date Expiration Date Visits Requested Visits Authorized [id number] Pending Review Auto-Generat ed Referral 02/27/2022 01/28/2023 1 1 [facility] for referral (narrative)* Diagnostic Procedure Only (Routine) - Closed Specialty Diagnoses / Procedures Referred By Contac t Referred To Contact XR IMAGING Diagnoses Pain in joint, multiple sites Pain in left hip Procedures XR HIP GENERAL 3V PELV/AP/LAT LEFT RADEX HIP UNILATERAL WITH PELVIS 2-3 VIEWS Samantha Butler MD [address] [place] [id number] Xr Imaging Referral ID Status Reason Start Date Expiration Date V isits Requested Visits Authorized [id number] Closed Auto-Generate d Referral 01/29/2022 02/28/2023 1 1 * Diagnostic Procedure Only (Routine) - Closed Specialty Diagnoses / Procedures Referred By Contac t Referred To Contact XR IMAGING Diagnoses Pain in joint, multiple sites Procedures XR ELBOW GENERAL 2V AP/LAT LEFT RADEX ELBOW 2 VIEWS Samantha Butler MD [address] [place] [address] Xr Imaging Referral ID Status Reason Start Date Expiration Date V isits Requested Visits Authorized [id number] Closed Auto-Generate d Referral 01/29/2022 02/28/2023 1 1 * Diagnostic Procedure Only (Routine) - Closed Specialty Diagnoses / Procedures Referred By Contac t Referred To Contact XR IMAGING Diagnoses Pain in joint, multiple sites Procedures XR ELBOW GENERAL 2V AP/LAT RIGHT RADEX ELBOW 2 VIEWS Samantha Butler MD [address] [place] [address] Xr Imaging Referral ID Status Reason Start Date Expiration Date V isits Requested Visits Authorized [id number] Closed Auto-Generate d Referral 01/29/2022 02/28/2023 1 1 * Diagnostic Procedure Only (Routine) - Closed Specialty Diagnoses / Procedures Referred By Contac t Referred To Contact XR IMAGING Diagnoses Pain in joint, multiple sites Procedures XR HAND GENERAL 3V PA/LAT/OBL BILATERAL RADEX HAND MINIMUM 3 VIEWS Samantha Butler MD [address] [place] [address] Xr Imaging Referral ID Status Reason Start Date Expiration Date V isits Requested Visits Authorized [id number] Closed Auto-Generate d Referral 01/29/2022 02/28/2023 1 1 [facility] for referral (narrative)* Diagnostic Procedure Only (Routine) - Pending Review Specialty Diagnoses / Procedures Referred By Cecille t Referred To Contact BR IMAGING Diagnoses Encounter for screening mammogram for breast cancer Procedures DESTINEE SCREENING SCREENING MAMMOGRAPHY BI 2-VIEW BREAST INC Maryam Milton APRN.CNS [address] [place] [address] Br Imaging [address] [place] [address] Referral ID Status Reason Start Date Expiration Date Visits Requested Visits Authorized [id number] Pending Review Auto-Generat ed Referral 06/30/2022 07/30/2023 1 1 [facility] for referral (narrative)* Diagnostic Procedure Only (Routine) - Authorized Specialty Diagnoses / Procedures Referred By Cecille t Referred To Contact US IMAGING Diagnoses Abdominal pain, RUQ (right upper quadrant) Procedures US ABD RIGHT UPPER QUADRANT US ABDOMINAL REAL TIME W/IMAGE LIMITED Sydnee Sumner APRN.CNP [address] [place] [address] [facility] Referral ID Status Reason Start Date Expiration Date Visits Requested Visits Authorized [id number] Authorized Auto-Generat ed Referral 04/21/2023 05/20/2024 1 1 [facility] for referral (narrative)* Diagnostic Procedure Only (Routine) - Pending Review Specialty Diagnoses / Procedures Referred By Contac t Referred To Contact BR IMAGING Diagnoses Encounter for screening mammogram for breast cancer Procedures DESTINEE SCREENING SCREENING MAMMOGRAPHY BI 2-VIEW BREAST INC Domonique Cabrera MD [address] [place] [address] Br Imaging [address] [place] [address] Referral ID Status Reason Start Date Expiration Date Visits Requested Visits Authorized [id number] Pending Review Auto-Generat ed Referral 08/04/2023 09/02/2024 1 1 [facility] for referral (narrative)* Diagnostic Procedure Only (Routine) - Closed Specialty Diagnoses / Procedures Referred By Contac t Referred To Contact XR IMAGING Diagnoses Acute left-sided thoracic back pain Procedures XR THORACIC LIMITED 2V AP/LAT RADEX SPINE THORACIC 2 VIEWS Sydnee Sumner APRN.KOSHER DIETARY SERVICE MANAGER [address] [place] [address] [place] [address] Referral ID Status Reason Start Date Expiration Date V isits Requested Visits Authorized [id number] Closed Auto-Generate d Referral 10/11/2023 11/09/2024 1 1 [facility] for referral (narrative)* Outpatient Procedure (Routine) - Authorized Specialty Diagnoses / Procedures Referred By Contac t Referred To Contact [facility] Diagnoses Palpitations Family history of ischemic heart disease Pure hypercholesterolemia Raynaud's phenomenon without gangrene Procedures ECG COMPLETE ECG ROUTINE ECG W/LEAST 12 LDS W/I&R Jimmy Quintana MD [address] [place] [id number] [facility] [place] [address] [place] [address] Referral ID Status Reason Start Date Expiration Date Visits Requested Visits Authorized [id number] Authorized Auto-Generat ed Referral 03/01/2024 03/01/2025 1 1 [facility] for referral (narrative)* Diagnostic Procedure Only (Routine) - Closed Specialty Diagnoses / Procedures Referred By Contac t Referred To Contact XR IMAGING Diagnoses Acute left-sided thoracic back pain Procedures XR THORACIC LIMITED 2V AP/LAT RADEX SPINE THORACIC 2 VIEWS Sydnee Sumner APRN.KOSHER DIETARY SERVICE MANAGER [address] [place] [address] [place] [address] Referral ID Status Reason Start Date Expiration Date V isits Requested Visits Authorized [id number] Closed Auto-Generate d Referral 10/11/2023 11/09/2024 1 1 [facility] for referral (narrative)* Diagnostic Procedure Only (Routine) - Closed Specialty Diagnoses / Procedures [facility] Ref[facility] To Contact XR IMAGING Diagnoses Pain of right thumb Procedures XR DIGIT GENERAL 3V FRONTAL/LAT/OBL RIGHT X-RAY EXAM OF FINGER(S) Chelsy Oscar APRN.KOSHER DIETARY SERVICE MANAGER [address] [place] [address] Xr Imaging [place] [address] Referral ID Status Reason Start Date Expiration Date V isits Requested Visits Authorized [id number] Closed Auto-Generate d Referral 08/13/2021 09/12/2022 1 1 [facility] for referral (narrative)* Diagnostic Procedure Only (Routine) - Authorized Specialty Diagnoses / Procedures Referred By [facility] Referred To Contact MOLECULAR & FUNCTIONAL IMAGING Diagnoses Encounter for screening for cardiovascular disorders Procedures NM CARDIAC PERF STRESS/EXERCISE MYOCARDIAL SPECT MULTIPLE STUDIES Jimmy Quintana MD [address] [place] [address] Molecular & Functional Imaging [address] [place] [address] Referral ID Status Reason Start Date Expiration Date Visits Requested Visits Authorized [id number] Authorized Auto-Generat ed Referral 09/27/2024 10/20/2025 1 1 * Transition of Care (Routine) - Authorized Specialty Diagnoses / Procedures Referred By [facility] Referred To Contact [facility] Procedures CARDIOVASCULAR MEDICINE OP FOLLOW UP APPT ORDER Jimmy Quintana MD [address] [place] [address] [facility] [place] [address] [place] [address] Referral ID Status Reason Start Date Expiration Date Visits Requested Visits Authorized [id number] Authorized PCP Requested Referral 12/19/2024 09/20/2025 1 1 * Outpatient Procedure (Routine) - Authorized Specialty Diagnoses / Procedures Referred By Cecille moe Referred To Contact [facility] Diagnoses Bruit Procedures US CAROTID ARTERIES TELMA VAS LAB DUPLEX SCAN EXTRACRANIAL ART COMPL BI STUDY Jimmy Quintana MD [address] [place] [address] [address] Referral ID Status Reason Start Date Expiration Date Visits Requested Visits Authorized [id number] Authorized Auto-Generat ed Referral 09/27/2024 09/20/2025 1 1 [facility] for referral (narrative)* Diagnostic Procedure Only (Routine) - Closed Specialty Diagnoses / Procedures Referred By Cecille moe Referred To Contact MOLECULAR & FUNCTIONAL IMAGING Diagnoses Encounter for screening for cardiovascular disorders Procedures NM CARDIAC PERF STRESS/EXERCISE MYOCARDIAL SPECT MULTIPLE STUDIES Jimmy Quintana MD [address] [place] [address] Molecular [facility] Functional Imaging [address] [place] [address] Referral ID Status Reason Start Date Expiration Date V isits Requested Visits Authorized [id number] Closed Auto-Generate d Referral 09/27/2024 10/20/2025 2 2 [facility] for referral (narrative)No reason for referral information availableWUniversity [facility] Work Phone: Reason for referral (narrative)* Transition of Care (Routine) - Authorized Specialty Diagnoses / Procedures Referred By Cecille moe Referred To Contact [facility] Procedures CARDIOVASCULAR MEDICINE OP FOLLOW UP APPT ORDER Jimmy Quintana MD [address] [place] [address] Phone: tel: fax: [address] [address] Referral ID Status Reason Start Date Expiration Date Visits Requested Visits Authorized [id number] Authorized PCP Requested Referral 5 12/20/2025 1 1 [facility] for visit Narrative* Diagnostic Procedure Only (Routine) - Closed Specialty Diagnoses / Procedures Referred By Contac t Referred To Contact BR IMAGING Diagnoses Encounter for screening mammogram for breast cancer Procedures DESTINEE SCREENING SCREENING MAMMOGRAPHY BI 2-VIEW BREAST INC CAD Domonique Guzman MD [address] [place] [address] Br Imaging [address] [place] [address] Referral ID Status Reason Start Date Expiration Date V isits Requested Visits Authorized [id number] Closed Auto-Generate d Referral 08/04/2023 09/02/2024 1 1 [facility] for visit Narrative* Diagnostic Procedure Only (Routine) - Closed Specialty Diagnoses / Procedures Referred By Contac t Referred To Contact XR IMAGING Diagnoses Acute left-sided thoracic back pain Procedures XR THORACIC LIMITED 2V AP/LAT RADEX SPINE THORACIC 2 VIEWS Sydnee Sumner ASSOCIATE DIRECTOR FINANCIAL AID.KOSHER DIETARY SERVICE MANAGER [address] [place] [address] [place] [address] Referral ID Status Reason Start Date Expiration Date V isits Requested Visits Authorized [id number] Closed Auto-Generate d Referral 10/11/2023 11/09/2024 1 1 [facility] for visit Narrative* Diagnostic Procedure Only (Routine) - Closed Specialty Diagnoses / Procedures Referred By Contac t Referred To Contact XR IMAGING Diagnoses Pain of right thumb Procedures XR DIGIT GENERAL 3V FRONTAL/LAT/OBL RIGHT X-RAY EXAM OF FINGER(S) Chelsy Oscar, ASSOCIATE DIRECTOR FINANCIAL AID.KOSHER DIETARY SERVICE MANAGER [address] [place] [address] [place] [address] Referral ID Status Reason Start Date Expiration Date V isits Requested Visits Authorized [id number] Closed Auto-Generate d Referral 08/13/2021 09/12/2022 1 1 [facility] for visit Narrative* Diagnostic Procedure Only (Routine) - Closed Specialty Diagnoses / Procedures Referred By Contac t Referred To Contact MOLECULAR & FUNCTIONAL IMAGING Diagnoses Encounter for screening for cardiovascular disorders Procedures NM CARDIAC PERF STRESS/EXERCISE MYOCARDIAL SPECT MULTIPLE STUDIES Jimmy Quintana MD [address] [place] [address] Molecular & Functional Imaging [address] [place] [address] Referral ID Status Reason Start Date Expiration Date V isits Requested Visits Authorized [id number] Closed Auto-Generate d Referral 09/27/2024 10/20/2025 2 2 [facility] Diagnostic Procedure Only (Routine) - Closed Specialty Diagnoses / Procedures Referred By Contac t Referred To Contact BR IMAGING Diagnoses Encounter for screening mammogram for breast cancer Procedures DESTINEE SCREENING W PAULINO SCREENING DIGITAL BREAST TOMOSYNTHESIS BI SCREENING MAMMOGRAPHY BI 2-VIEW BREAST INC Sydnee Flowers, JOHN.KOSHER DIETARY SERVICE MANAGER [address] [place] [address] Phone: tel: fax: BR IMAGING [address] [place] [address] Referral ID Status Reason Start Date Expiration Date V isits Requested Visits Authorized [id number] Closed Auto-Generate d Referral 11/10/2024 12/10/2025 1 1 [facility] Chief Complaint and Reason for Visit Chief Complaint SYMPTOMS, COVID TEST Annual (NEWSPAPER EDITOR) CHEST PAIN Reason for Visit Encounter for screen ing for COVID-19 Chief Complaint SYMPTOMS, COVID TEST Annual (NEWSPAPER EDITOR) CHEST PAIN palpitations 48 HOUR HOLTER MONITOR Reason for Visit Encounter for screen ing for COVID-19 Chief Complaint Annual (NEWSPAPER EDITOR) CHEST PAIN palpitations 48 HOUR HOLTER MONITOR Chief Complaint CHEST PAIN palpitations 48 HOUR HOLTER MONITOR DIZZINESS Chief Complaint Annual (NEWSPAPER EDITOR) Reason for Visit Atrophic vaginitis Hematuria Encounter for routine gynecological examination Vaginal burning Chief Complaint Admit Date Annual (NEWSPAPER EDITOR) October 30, 2024 8:11 am Reason for Visit Admit Date Atrophic vaginitis October 30, 2024 8:11 am Encounter for routine gynecological exam ination October 30, 2024 8:11am Vaginal odor October 30, 2024 8:11 am Chief Complaint Admit Date FALL April 02, 2025 3:3 9pm Family History Relationship Condition Age at Onset Recorded Date/T jennifer Not Specified Diabetes mellitus Unknown Cardiac disease Unknown Hypertension Unknown Advance Directives Advance Directive Response Recorded Date/ Time Living Will No November 30, 2021 11:17am Power of Manufacturing Support Engineer No November 30 11:17am Documents on File Type Date Recorded 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 Advance Directive(s) 08/26/2021 7:34 AM Advance Directive(s) 07/17/2021 9:23 AM Advance Directive(s) 07/14/2021 2:34 PM Advance Directive(s) 03/18/2021 12:08 PM Advance Directive(s) 03/12/2021 4:12 PM Advance Directive(s) 05/14/2020 10:32 AM Documents on File Type Date Recorded 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 Advance Directive(s) 08/26/2021 7:34 AM Advance Directive(s) 07/17/2021 9:23 AM Advance Directive(s) 07/14/2021 2:34 PM Advance Directive(s) 03/18/2021 12:08 PM Advance Directive(s) 03/12/2021 4:12 PM Advance Directive(s) 05/14/2020 10:32 AM Advance Directive Response Recorded Date/ Time Living Will No December 19, 2021 11:46am Power of Manufacturing Support Engineer No December 19 11:46am Advance Directive Response Recorded Date/ Time Living Will No January 05, 2022 12 :33pm Power of Manufacturing Support Engineer No January 05, 2022 12:33pm Advance Directive Response Recorded Date/ Time Living Will No January 05, 2022 11 :33am Power of Manufacturing Support Engineer No January 05, 2022 11:33am Advance Directive Response Recorded Date/ Time Do you have a Healthcare Power of Manufacturing Support Engineer? No April 02, 2025 3:39pm Reason for Referral Specialty Diagnoses / Procedures Referred By Cecille moe Referred To Contact Cardiology Diagnoses Atypical chest pain Family history of coronary artery disease Procedures CONSULT TO CARDIOLOGY OFFICE/OUTPATIENT [facility] MDM 60-74 MINUTES Maryam Emmanuel APRN.GENERAL MAINTENANCE HELPER [address] [place] [address] Referral ID Status Reason Start Date Expiration Date Visits Requested Visits Authorized [id number] Authorized PCP Requested Referral 12/12/2021 12/12/2022 1 1 Specialty Diagnoses / Procedures Referred By Cecille moe Referred To Contact Rheumatology Diagnoses Fibromyalgia Procedures CONSULT TO RHEUM/IMMUN DISEASE OFFICE/OUTPATIENT [facility] 60-74 MINUTES Maryam Emmanuel, ASSOCIATE DIRECTOR FINANCIAL AID.GENERAL MAINTENANCE HELPER [address] [place] [address] Referral ID Status Reason Start Date Expiration Date Visits Requested Visits Authorized [id number] Authorized PCP Requested Referral 12/12/2021 12/12/2022 1 1 Specialty Diagnoses / Procedures Referred By Contac t Referred To Contact CT IMAGING Diagnoses ACS (acute coronary syndrome) (HCC) Procedures CTA CORONARY W IVCON CTA HRT CORNRY ART/BYPASS GRFTS CONTRST 3D POST Jimmy Quintana MD [address] [place] [address] Ct Imaging Referral ID Status Reason Start Date Expiration Date Visits Requested Visits Authorized [id number] Authorized Auto-Generat ed Referral 12/31/2021 02/07/2022 1 1 Referral ID Status Reason Start Date Expiration Date V isits Requested Visits Authorized [id number] Closed Auto-Generate d Referral 12/31/2021 02/07/2022 1 1 Specialty Diagnoses / Procedures Referred By Contac t Referred To Contact [facility] Diagnoses Primary osteoarthritis of right hand Procedures CONSULT TO EXAMINER RATING CLERK OCCUPATIONAL THERAPY EVAL HIGH COMPLEX 60 MINS Samantha Butler MD [address] [facility] [address] [address] [facility] [place] [address] Referral ID Status Reason Start Date Expiration Date Visits Requested Visits Authorized [id number] Pending Review Auto-Generat ed Referral 01/29/2022 01/29/2023 1 1 Specialty Diagnoses / Procedures Referred By Contac t Referred To Contact [facility] Diagnoses Hypermobile joints Procedures CONSULT TO PHYSICAL THERAPY PHYSICAL THERAPY EVALUATION HIGH COMPLEX 45 MINS Samantha Butler MD [address] [facility] [address] [address] [facility] [address] [id number] Referral ID Status Reason Start Date Expiration Date Visits Requested Visits Authorized [id number] Pending Review Auto-Generat ed Referral 01/29/2022 01/29/2023 1 1 Specialty Diagnoses / Procedures Referred By Contac t Referred To Contact XR IMAGING Diagnoses Pain in joint, multiple sites Pain in left hip Procedures XR HIP GENERAL 3V PELV/AP/LAT LEFT RADEX HIP UNILATERAL WITH PELVIS 2-3 VIEWS Samantha Butler MD [address] [place] [address] Xr Imaging Referral ID Status Reason Start Date Expiration Date V isits Requested Visits Authorized [id number] Closed Auto-Generate d Referral 01/29/2022 02/28/2023 1 1 Specialty Diagnoses / Procedures Referred By Contac t Referred To Contact XR IMAGING Diagnoses Pain in joint, multiple sites Procedures XR ELBOW GENERAL 2V AP/LAT LEFT RADEX ELBOW 2 VIEWS Samantha Butler MD [address] [place] [address] Xr Imaging Referral ID Status Reason Start Date Expiration Date V isits Requested Visits Authorized [id number] Closed Auto-Generate d Referral 01/29/2022 02/28/2023 1 1 Specialty Diagnoses / Procedures Referred By Contac t Referred To Contact XR IMAGING Diagnoses Pain in joint, multiple sites Procedures XR ELBOW GENERAL 2V AP/LAT RIGHT RADEX ELBOW 2 VIEWS Samantha Butler MD [address] [place] [address] Xr Imaging Referral ID Status Reason Start Date Expiration Date V isits Requested Visits Authorized [id number] Closed Auto-Generate d Referral 01/29/2022 02/28/2023 1 1 Specialty Diagnoses / Procedures Referred By Contac t Referred To Contact XR IMAGING Diagnoses Pain in joint, multiple sites Procedures XR HAND GENERAL 3V PA/LAT/OBL BILATERAL RADEX HAND MINIMUM 3 VIEWS Samantha Butler MD [address] [place] [address] Xr Imaging Referral ID Status Reason Start Date Expiration Date V isits Requested Visits Authorized [id number] Closed Auto-Generate d Referral 01/29/2022 02/28/2023 1 1 Specialty Diagnoses / Procedures Referred By Contac t Referred To Contact Orthopedics Diagnoses Trigger thumb of right hand Procedures CONSULT PANEL TO ORTHOPAEDICS OFFICE/OUTPATIENT [facility] 60-74 MINUTES Samantha Butler MD [address] [place] [address] Referral ID Status Reason Start Date Expiration Date Visits Requested Visits Authorized [id number] Authorized PCP Requested Referral 07/02/2022 07/02/2023 1 1 Specialty Diagnoses / Procedures Referred By Contac t Referred To Contact Orthopedics Diagnoses Acute pain of right shoulder Procedures CONSULT TO ORTHOPAEDICS OFFICE/OUTPATIENT [facility] 60-74 MINUTES Maryam Emmanuel, ASSOCIATE DIRECTOR FINANCIAL AID.GENERAL MAINTENANCE HELPER [address] [place] [address] Referral ID Status Reason Start Date Expiration Date Visits Requested Visits Authorized [id number] Authorized PCP Requested Referral 01/11/2023 01/11/2024 1 1 Specialty Diagnoses / Procedures Referred By Contac t Referred To Contact XR IMAGING Diagnoses Acute pain of right shoulder Procedures XR SHOULDER GENERAL 3V OR MORE AP/TRUE AP/OTHER RIGHT RADEX SHOULDER COMPLETE MINIMUM 2 VIEWS Maryam Emmanuel, ASSOCIATE DIRECTOR FINANCIAL AID.GENERAL MAINTENANCE HELPER [address] [place] [address] Xr Imaging Referral ID Status Reason Start Date Expiration Date Visits Requested Visits Authorized [id number] Pending Review Auto-Generat ed Referral 01/11/2023 02/10/2024 1 1 Specialty Diagnoses / Procedures Referred By Contac t Referred To Contact Dermatology Diagnoses Basal cell carcinoma of face Procedures MOHS OFFICE/OUTPATIENT [facility] 60-74 MINUTES Suyapa Peraza [place]-C [address] [place] [address] Referral ID Status Reason Start Date Expiration Date V isits Requested Visits Authorized [id number] Closed PCP Requested Referral 04/19/2023 04/18/2024 1 1 Summary Purpose Additional Source Comments Goals (unrecognized section and content) Goals may be documented in a n alternate sectionGoals may be documented in an alternate sectionGoals may be documented in an alternate sectionGoals may be documented in an alternate sectionGoals may be documented in an alternate sectionGoals may be documented in an alternate sectionGoals may be documented in an alternate section Source Comments (unrecognize d section and content) In the event this informatio n is protected by the Federal Confidentiality of Alcohol and Drug Abuse Patient Records regulations: The Federal rules restrict any use of the information to criminally investigate or prosecute any alcohol or drug abuse patient.[facility] the event this information is protected by the Federal Confidentiality of Alcohol and Drug Abuse Patient Records regulations: The Federal rules restrict any use of the information to criminally investigate or prosecute any alcohol or drug abuse patient.[facility] SystemIn the event this information is protected by the Federal Confidentiality of Alcohol and Drug Abuse Patient Records regulations: The Federal rules restrict any use of the information to criminally investigate or prosecute any alcohol or drug abuse patient.[facility] SystemIn the event this information is protected by the Federal Confidentiality of Alcohol and Drug Abuse Patient Records regulations: The Federal rules restrict any use of the information to criminally investigate or prosecute any alcohol or drug abuse patient.[facility] SystemIn the event this information is protected by the Federal Confidentiality of Alcohol and Drug Abuse Patient Records regulations: The Federal rules restrict any use of the information to criminally investigate or prosecute any alcohol or drug abuse patient.[facility] SystemIn the event this information is protected by the Federal Confidentiality of Alcohol and Drug Abuse Patient Records regulations: The Federal rules restrict any use of the information to criminally investigate or prosecute any alcohol or drug abuse patient.[facility] SystemIn the event this information is protected by the Federal Confidentiality of Alcohol and Drug Abuse Patient Records regulations: The Federal rules restrict any use of the information to criminally investigate or prosecute any alcohol or drug abuse patient.[facility] SystemIn the event this information is protected by the Federal Confidentiality of Alcohol and Drug Abuse Patient Records regulations: The Federal rules restrict any use of the information to criminally investigate or prosecute any alcohol or drug abuse patient.[facility] SystemIn the event this information is protected by the Federal Confidentiality of Alcohol and Drug Abuse Patient Records regulations: The Federal rules restrict any use of the information to criminally investigate or prosecute any alcohol or drug abuse patient.[facility] SystemIn the event this information is protected by the Federal Confidentiality of Alcohol and Drug Abuse Patient Records regulations: The Federal rules restrict any use of the information to criminally investigate or prosecute any alcohol or drug abuse patient.[facility] SystemIn the event this information is protected by the Federal Confidentiality of Alcohol and Drug Abuse Patient Records regulations: The Federal rules restrict any use of the information to criminally investigate or prosecute any alcohol or drug abuse patient.[facility] SystemIn the event this information is protected by the Federal Confidentiality of Alcohol and Drug Abuse Patient Records regulations: The Federal rules restrict any use of the information to criminally investigate or prosecute any alcohol or drug abuse patient.[facility] SystemIn the event this information is protected by the Federal Confidentiality of Alcohol and Drug Abuse Patient Records regulations: The Federal rules restrict any use of the information to criminally investigate or prosecute any alcohol or drug abuse patient.[facility] SystemIn the event this information is protected by the Federal Confidentiality of Alcohol and Drug Abuse Patient Records regulations: The Federal rules restrict any use of the information to criminally investigate or prosecute any alcohol or drug abuse patient.[facility] SystemIn the event this information is protected by the Federal Confidentiality of Alcohol and Drug Abuse Patient Records regulations: The Federal rules restrict any use of the information to criminally investigate or prosecute any alcohol or drug abuse patient.[facility] SystemIn the event this information is protected by the Federal Confidentiality of Alcohol and Drug Abuse Patient Records regulations: The Federal rules restrict any use of the information to criminally investigate or prosecute any alcohol or drug abuse patient.[facility] SystemIn the event this information is protected by the Federal Confidentiality of Alcohol and Drug Abuse Patient Records regulations: The Federal rules restrict any use of the information to criminally investigate or prosecute any alcohol or drug abuse patient.[facility] SystemIn the event this information is protected by the Federal Confidentiality of Alcohol and Drug Abuse Patient Records regulations: The Federal rules restrict any use of the information to criminally investigate or prosecute any alcohol or drug abuse patient.[facility] SystemIn the event this information is protected by the Federal Confidentiality of Alcohol and Drug Abuse Patient Records regulations: The Federal rules restrict any use of the information to criminally investigate or prosecute any alcohol or drug abuse patient.[facility] SystemIn the event this information is protected by the Federal Confidentiality of Alcohol and Drug Abuse Patient Records regulations: The Federal rules restrict any use of the information to criminally investigate or prosecute any alcohol or drug abuse patient.[facility] SystemIn the event this information is protected by the Federal Confidentiality of Alcohol and Drug Abuse Patient Records regulations: The Federal rules restrict any use of the information to criminally investigate or prosecute any alcohol or drug abuse patient.[facility] SystemIn the event this information is protected by the Federal Confidentiality of Alcohol and Drug Abuse Patient Records regulations: The Federal rules restrict any use of the information to criminally investigate or prosecute any alcohol or drug abuse patient.[facility] SystemIn the event this information is protected by the Federal Confidentiality of Alcohol and Drug Abuse Patient Records regulations: The Federal rules restrict any use of the information to criminally investigate or prosecute any alcohol or drug abuse patient.[facility] SystemIn the event this information is protected by the Federal Confidentiality of Alcohol and Drug Abuse Patient Records regulations: The Federal rules restrict any use of the information to criminally investigate or prosecute any alcohol or drug abuse patient.[facility] SystemIn the event this information is protected by the Federal Confidentiality of Alcohol and Drug Abuse Patient Records regulations: The Federal rules restrict any use of the information to criminally investigate or prosecute any alcohol or drug abuse patient.[facility] SystemIn the event this information is protected by the Federal Confidentiality of Alcohol and Drug Abuse Patient Records regulations: The Federal rules restrict any use of the information to criminally investigate or prosecute any alcohol or drug abuse patient.[facility] SystemIn the event this information is protected by the Federal Confidentiality of Alcohol and Drug Abuse Patient Records regulations: The Federal rules restrict any use of the information to criminally investigate or prosecute any alcohol or drug abuse patient.[facility] SystemIn the event this information is protected by the Federal Confidentiality of Alcohol and Drug Abuse Patient Records regulations: The Federal rules restrict any use of the information to criminally investigate or prosecute any alcohol or drug abuse patient.[facility] SystemIn the event this information is protected by the Federal Confidentiality of Alcohol and Drug Abuse Patient Records regulations: The Federal rules restrict any use of the information to criminally investigate or prosecute any alcohol or drug abuse patient.[facility] SystemIn the event this information is protected by the Federal Confidentiality of Alcohol and Drug Abuse Patient Records regulations: The Federal rules restrict any use of the information to criminally investigate or prosecute any alcohol or drug abuse patient.[facility] SystemIn the event this information is protected by the Federal Confidentiality of Alcohol and Drug Abuse Patient Records regulations: The Federal rules restrict any use of the information to criminally investigate or prosecute any alcohol or drug abuse patient.[facility] SystemIn the event this information is protected by the Federal Confidentiality of Alcohol and Drug Abuse Patient Records regulations: The Federal rules restrict any use of the information to criminally investigate or prosecute any alcohol or drug abuse patient.[facility] SystemIn the event this information is protected by the Federal Confidentiality of Alcohol and Drug Abuse Patient Records regulations: The Federal rules restrict any use of the information to criminally investigate or prosecute any alcohol or drug abuse patient.[facility] SystemIn the event this information is protected by the Federal Confidentiality of Alcohol and Drug Abuse Patient Records regulations: The Federal rules restrict any use of the information to criminally investigate or prosecute any alcohol or drug abuse patient.[facility] SystemIn the event this information is protected by the Federal Confidentiality of Alcohol and Drug Abuse Patient Records regulations: The Federal rules restrict any use of the information to criminally investigate or prosecute any alcohol or drug abuse patient.[facility] SystemIn the event this information is protected by the Federal Confidentiality of Alcohol and Drug Abuse Patient Records regulations: The Federal rules restrict any use of the information to criminally investigate or prosecute any alcohol or drug abuse patient.[facility] SystemIn the event this information is protected by the Federal Confidentiality of Alcohol and Drug Abuse Patient Records regulations: The Federal rules restrict any use of the information to criminally investigate or prosecute any alcohol or drug abuse patient.[facility] SystemIn the event this information is protected by the Federal Confidentiality of Alcohol and Drug Abuse Patient Records regulations: The Federal rules restrict any use of the information to criminally investigate or prosecute any alcohol or drug abuse patient.[facility] SystemIn the event this information is protected by the Federal Confidentiality of Alcohol and Drug Abuse Patient Records regulations: The Federal rules restrict any use of the information to criminally investigate or prosecute any alcohol or drug abuse patient.[facility] SystemIn the event this information is protected by the Federal Confidentiality of Alcohol and Drug Abuse Patient Records regulations: The Federal rules restrict any use of the information to criminally investigate or prosecute any alcohol or drug abuse patient.[facility] SystemIn the event this information is protected by the Federal Confidentiality of Alcohol and Drug Abuse Patient Records regulations: The Federal rules restrict any use of the information to criminally investigate or prosecute any alcohol or drug abuse patient.[facility] SystemIn the event this information is protected by the Federal Confidentiality of Alcohol and Drug Abuse Patient Records regulations: The Federal rules restrict any use of the information to criminally investigate or prosecute any alcohol or drug abuse patient.[facility] SystemIn the event this information is protected by the Federal Confidentiality of Alcohol and Drug Abuse Patient Records regulations: The Federal rules restrict any use of the information to criminally investigate or prosecute any alcohol or drug abuse patient.[facility] SystemIn the event this information is protected by the Federal Confidentiality of Alcohol and Drug Abuse Patient Records regulations: The Federal rules restrict any use of the information to criminally investigate or prosecute any alcohol or drug abuse patient.[facility] SystemIn the event this information is protected by the Federal Confidentiality of Alcohol and Drug Abuse Patient Records regulations: The Federal rules restrict any use of the information to criminally investigate or prosecute any alcohol or drug abuse patient.[facility] SystemIn the event this information is protected by the Federal Confidentiality of Alcohol and Drug Abuse Patient Records regulations: The Federal rules restrict any use of the information to criminally investigate or prosecute any alcohol or drug abuse patient.[facility] SystemIn the event this information is protected by the Federal Confidentiality of Alcohol and Drug Abuse Patient Records regulations: The Federal rules restrict any use of the information to criminally investigate or prosecute any alcohol or drug abuse patient.[facility] SystemIn the event this information is protected by the Federal Confidentiality of Alcohol and Drug Abuse Patient Records regulations: The Federal rules restrict any use of the information to criminally investigate or prosecute any alcohol or drug abuse patient.[facility] SystemIn the event this information is protected by the Federal Confidentiality of Alcohol and Drug Abuse Patient Records regulations: The Federal rules restrict any use of the information to criminally investigate or prosecute any alcohol or drug abuse patient.[facility] SystemIn the event this information is protected by the Federal Confidentiality of Alcohol and Drug Abuse Patient Records regulations: The Federal rules restrict any use of the information to criminally investigate or prosecute any alcohol or drug abuse patient.[facility] SystemIn the event this information is protected by the Federal Confidentiality of Alcohol and Drug Abuse Patient Records regulations: The Federal rules restrict any use of the information to criminally investigate or prosecute any alcohol or drug abuse patient.[facility] SystemIn the event this information is protected by the Federal Confidentiality of Alcohol and Drug Abuse Patient Records regulations: The Federal rules restrict any use of the information to criminally investigate or prosecute any alcohol or drug abuse patient.[facility] SystemIn the event this information is protected by the Federal Confidentiality of Alcohol and Drug Abuse Patient Records regulations: The Federal rules restrict any use of the information to criminally investigate or prosecute any alcohol or drug abuse patient.[facility] SystemIn the event this information is protected by the Federal Confidentiality of Alcohol and Drug Abuse Patient Records regulations: The Federal rules restrict any use of the information to criminally investigate or prosecute any alcohol or drug abuse patient.[facility] SystemIn the event this information is protected by the Federal Confidentiality of Alcohol and Drug Abuse Patient Records regulations: The Federal rules restrict any use of the information to criminally investigate or prosecute any alcohol or drug abuse patient.[facility] SystemIn the event this information is protected by the Federal Confidentiality of Alcohol and Drug Abuse Patient Records regulations: The Federal rules restrict any use of the information to criminally investigate or prosecute any alcohol or drug abuse patient.[facility] SystemIn the event this information is protected by the Federal Confidentiality of Alcohol and Drug Abuse Patient Records regulations: The Federal rules restrict any use of the information to criminally investigate or prosecute any alcohol or drug abuse patient.[facility] SystemIn the event this information is protected by the Federal Confidentiality of Alcohol and Drug Abuse Patient Records regulations: The Federal rules restrict any use of the information to criminally investigate or prosecute any alcohol or drug abuse patient.[facility] SystemIn the event this information is protected by the Federal Confidentiality of Alcohol and Drug Abuse Patient Records regulations: The Federal rules restrict any use of the information to criminally investigate or prosecute any alcohol or drug abuse patient.[facility] SystemIn the event this information is protected by the Federal Confidentiality of Alcohol and Drug Abuse Patient Records regulations: The Federal rules restrict any use of the information to criminally investigate or prosecute any alcohol or drug abuse patient.[facility] SystemIn the event this information is protected by the Federal Confidentiality of Alcohol and Drug Abuse Patient Records regulations: The Federal rules restrict any use of the information to criminally investigate or prosecute any alcohol or drug abuse patient.[facility] SystemIn the event this information is protected by the Federal Confidentiality of Alcohol and Drug Abuse Patient Records regulations: The Federal rules restrict any use of the information to criminally investigate or prosecute any alcohol or drug abuse patient.[facility] Care Teams (unrecognized sec tion and content) Wired Sweatband Cutter Relationship Specialty Start Date End Date Domonique Guzman MD [facility] [place] [address] PCP - General Internal Medicine 05/26/16 Wired Sweatband Cutter Relationship Specialty Start Date End Date Domonique Guzman MD [address] [place] [id number] PCP - General Internal Medicine 05/26/16 Wired Sweatband Cutter Relationship Specialty Start Date End Date Domonique Guzman MD [address] [place] [id number] PCP - General Internal Medicine 05/26/16 Wired Sweatband Cutter Relationship Specialty Start Date End Date Domonique Guzman MD [address] [place] [address] [place] [address] PCP - General Internal Medicine 05/26/16 Wired Sweatband Cutter Relationship Specialty Start Date End Date Domonique Guzman MD [address] [place] [id number] PCP - General Internal Medicine 05/26/16 Wired Sweatband Cutter Relationship Specialty Start Date End Date Domonique Guzman MD [address] [place] [address] [place] [address] PCP - General Internal Medicine 05/26/16 Wired Sweatband Cutter Relationship Specialty Start Date End Date Domonique Guzman MD [address] [place] [address] [place] [address] PCP - General Internal Medicine 05/26/16 Wired Sweatband Cutter Relationship Specialty Start Date End Date Domonique Guzman MD [address] [place] [address] PCP - General Internal Medicine 05/26/16 Jimmy Quintana MD [address] [place] [address] Primary Staff Physician Cardiology 01/28/22 Wired Sweatband Cutter Relationship Specialty Start Date End Date Domonique Guzman MD [address] [place] [address] PCP - General Internal Medicine 05/26/16 Jimmy Quintana MD [address] [place] [address] Primary Staff Physician Cardiology 01/28/22 Wired Sweatband Cutter Relationship Specialty Start Date End Date Domonique Guzman MD [address] [place] [address] PCP - General Internal Medicine 05/26/16 Jimmy Quintana MD [address] [place] [address] Primary Staff Physician Cardiology 01/28/22 Wired Sweatband Cutter Relationship Specialty Start Date End Date Domonique Guzman MD [address] [facility] [place] [address] PCP - General Internal Medicine 05/26/16 Jimmy Quintana MD [address] [place] [address] Primary Staff Physician Cardiology 01/28/22 Wired Sweatband Cutter Relationship Specialty Start Date End Date Domonique Guzman MD [address] [facility] [place] [address] PCP - General Internal Medicine 05/26/16 Jimmy Quintana MD [address] [place] [address] Primary Staff Physician Cardiology 01/28/22 Wired Sweatband Cutter Relationship Specialty Start Date End Date Domonique Guzman MD [address] [facility] [place] [address] PCP - General Internal Medicine 05/26/16 Jimmy Quintana MD [address] [place] [address] Primary Staff Physician Cardiology 01/28/22 Wired Sweatband Cutter Relationship Specialty Start Date End Date Domonique Guzman MD [address] [facility] [place] [address] PCP - General Internal Medicine 05/26/16 Jimmy Quintana MD [address] [place] [address] Primary Staff Physician Cardiology 01/28/22 Wired Sweatband Cutter Relationship Specialty Start Date End Date Domonique Guzman MD [address] [facility] [place] [address] PCP - General Internal Medicine 05/26/16 Jimmy Quintana MD [address] [place] [address] Primary Staff Physician Cardiology 01/28/22 Wired Sweatband Cutter Relationship Specialty Start Date End Date Domonique Guzman MD [address] [facility] [place] [address] PCP - General Internal Medicine 05/26/16 Jimmy Quintana MD [address] [place] [address] Primary Staff Physician Cardiology 01/28/22 Team Status: Active Member Role Status Dates Dr. Domonique Guzman MD Family Provider Active Dr. Domonique Guzman MD Primary Care Provider Active Team Status: Inactive Member Role Status Dates Dr. Domonique Guzman MD Primary Care Provider, Referr ing Provider Active Mahsa Fischer BUILDING TRADES INSTRUCTOR, BUILDING TRADES INSTRUCTOR-C Attending Provider Active Team Status: Inactive Member Role Status Dates Dr. Domonique Guzman MD Primary Care Provider Active Mahsa Fischer BUILDING TRADES INSTRUCTOR, BUILDING TRADES INSTRUCTOR-C Attending Provider Active Wired Sweatband Cutter Relationship Specialty Start Date End Date Domonique Guzman MD [address] [place] [address] PCP - General Internal Medicine 05/26/16 Jimmy Quintana MD [address] [place], [place] [id number] Primary Staff Physician Cardiology 01/28/22 Wired Sweatband Cutter Relationship Specialty Start Date End Date Domonique Guzman MD [address] [place] [address] PCP - General Internal Medicine 05/26/16 Jimmy Quintana MD [address] [place], [place] [id number] Primary Staff Physician Cardiology 01/28/22 Wired Sweatband Cutter Relationship Specialty Start Date End Date Domonique Guzman MD [address] [place] [address] PCP - General Internal Medicine 05/26/16 Jimmy Quintana MD [address] [place], [place] [id number] Primary Staff Physician Cardiology 01/28/22 Wired Sweatband Cutter Relationship Specialty Start Date End Date Domonique Guzman MD [address] [place] [address] PCP - General Internal Medicine 05/26/16 Jimmy Quintana MD [address] [facility] [place] [address] Primary Staff Physician Cardiology 01/28/22 Wired Sweatband Cutter Relationship Specialty Start Date End Date Domonique Guzman MD [address] [place], [place] 567[address] PCP - General Internal Medicine 05/26/16 Jimmy Quintana MD [address] [facility] [place] [address] Primary Staff Physician Cardiology 01/28/22 Wired Sweatband Cutter Relationship Specialty Start Date End Date Domonique Guzman MD [address] [place], [place] [address] PCP - General Internal Medicine 05/26/16 Jimmy Quintana MD [address] [place], [place] [id number] Primary Staff Physician Cardiology 01/28/22 Wired Sweatband Cutter Relationship Specialty Start Date End Date Domonique Guzman MD [address] [place], [place] 513161 PCP - General Internal Medicine 05/26/16 Jimmy Quintana MD [address] [place] [address] Primary Staff Physician Cardiology 01/28/22 Wired Sweatband Cutter Relationship Specialty Start Date End Date Domonique Guzman MD [address] [place] [address] PCP - General Internal Medicine 05/26/16 Jimmy Quintana MD [address] [place] [address] Primary Staff Physician Cardiology 01/28/22 Wired Sweatband Cutter Relationship Specialty Start Date End Date Domonique Guzman MD [address] [place] [address] PCP - General Internal Medicine 05/26/16 Jimmy Quintana MD [address] [place] [address] Primary Staff Physician Cardiology 01/28/22 Wired Sweatband Cutter Relationship Specialty Start Date End Date Domonique Guzman MD [address] [place] [address] PCP - General Internal Medicine 05/26/16 Jimmy Quintana MD [address] [place] [address] Primary Staff Physician Cardiology 01/28/22 Wired Sweatband Cutter Relationship Specialty Start Date End Date Domonique Guzman MD [address] [place] [address] PCP - General Internal Medicine 05/26/16 Jimmy Quintana MD [address] [place] [address] Primary Staff Physician Cardiology 01/28/22 Wired Sweatband Cutter Relationship Specialty Start Date End Date Domonique Guzman MD [address] [place] [address] PCP - General Internal Medicine 05/26/16 Jimmy Quintana MD [address] [place] [address] Primary Staff Physician Cardiology 01/28/22 Wired Sweatband Cutter Relationship Specialty Start Date End Date Domonique Guzman MD [address] [place] [address] PCP - General Internal Medicine 05/26/16 Jimmy Quintana MD [address] [facility] [place] [address] Primary Staff Physician Cardiology 01/28/22 Wired Sweatband Cutter Relationship Specialty Start Date End Date Domonique Guzman MD [address] [place] [address] PCP - General Internal Medicine 05/26/16 Wired Sweatband Cutter Relationship Specialty Start Date End Date Domonique Guzman MD [address] [place] [address] PCP - General Internal Medicine 05/26/16 Jimmy Quintana MD [address] [place] [address] Primary Staff Physician Cardiology 01/28/22 Wired Sweatband Cutter Relationship Specialty Start Date End Date Domonique Guzman MD [address] [place] [address] PCP - General Internal Medicine 05/26/16 Jimmy Quintana MD [address] [place] [address] Primary Staff Physician Cardiology 01/28/22 Wired Sweatband Cutter Relationship Specialty Start Date End Date Domonique Guzman MD [address] [place] [address] PCP - General Internal Medicine 05/26/16 Jimmy Quintana MD [address] [facility] [place] [address] Primary Staff Physician Cardiology 01/28/22 Maryam Emmanuel, ASSOCIATE DIRECTOR FINANCIAL AID.GENERAL MAINTENANCE HELPER [address] [place] [address] [facility] 08/07/24 Sydnee Sumner ASSOCIATE DIRECTOR FINANCIAL AID.KOSHER DIETARY SERVICE MANAGER [address] [place] [address] [facility] Internal Medicine 08/07/24 Wired Sweatband Cutter Relationship Specialty Start Date End Date Domonique Guzman MD [address] [place] [address] PCP - General Internal Medicine 05/26/16 Jimmy Quintana MD [address] [facility] [place] [address] Primary Staff Physician Cardiology 01/28/22 Maryam Emmanuel, ASSOCIATE DIRECTOR FINANCIAL AID.GENERAL MAINTENANCE HELPER [address] [place] [address] [facility] Internal Medicine 08/07/24 Sydnee Sumner ASSOCIATE DIRECTOR FINANCIAL AID.KOSHER DIETARY SERVICE MANAGER [address] [place] [address] [facility] Internal Medicine 08/07/24 Wired Sweatband Cutter Relationship Specialty Start Date End Date Domonique Guzman MD [address] [place] [address] PCP - General Internal Medicine 05/26/16 Jimmy Quintana MD [address] [place], [place] [id number] Primary Staff Physician Cardiology 01/28/22 Maryam Emmanuel, ASSOCIATE DIRECTOR FINANCIAL AID.GENERAL MAINTENANCE HELPER [address] [place] [address] [facility] Internal Medicine 08/07/24 Sydnee Sumner ASSOCIATE DIRECTOR FINANCIAL AID.KOSHER DIETARY SERVICE MANAGER [address] [place] [address] [facility] Internal Medicine 08/07/24 Wired Sweatband Cutter Relationship Specialty Start Date End Date Domonique Guzman MD [address] [place] [address] PCP - General Internal Medicine 05/26/16 Jimmy Quintana MD [address] [place] [address] Primary Staff Physician Cardiology 01/28/22 Maryam Emmanuel, ASSOCIATE DIRECTOR FINANCIAL AID.GENERAL MAINTENANCE HELPER [address] [place] [address] [facility] Internal Medicine 08/07/24 Sydnee Sumner, ASSOCIATE DIRECTOR FINANCIAL AID.KOSHER DIETARY SERVICE MANAGER [address] [place] [address] [facility] Internal Medicine 08/07/24 Wired Sweatband Cutter Relationship Specialty Start Date End Date Domonique Guzman MD [address] [place] [address] PCP - General Internal Medicine 05/26/16 Jimmy Quintana MD [address] [place], [place] [id number] Primary Staff Physician Cardiology 01/28/22 Maryam Emmanuel, ASSOCIATE DIRECTOR FINANCIAL AID.GENERAL MAINTENANCE HELPER [address] [place] [address] [facility] 08/07/24 Sydnee Sumner ASSOCIATE DIRECTOR FINANCIAL AID.KOSHER DIETARY SERVICE MANAGER [address] [place] [address] [facility] 08/07/24 Wired Sweatband Cutter Relationship Specialty Start Date End Date Domonique Guzman MD [address] [place] [address] PCP - General Internal Medicine 05/26/16 Jimmy Quintana MD [address] [facility] [place] [address] Primary Staff Physician Cardiology 01/28/22 Maryam Emmanuel, ASSOCIATE DIRECTOR FINANCIAL AID.GENERAL MAINTENANCE HELPER [address] [place] [address] [facility] Internal Medicine 08/07/24 Sydnee Sumner, ASSOCIATE DIRECTOR FINANCIAL AID.KOSHER DIETARY SERVICE MANAGER [facility] [place] [address] [facility] Internal Medicine 08/07/24 Wired Sweatband Cutter Relationship Specialty Start Date End Date Domonique Guzman MD [address] [place] [address] PCP - General Internal Medicine 05/26/16 Jimmy Quintana MD [address] [place] [address] Primary Staff Physician Cardiology 01/28/22 Maryam Emmanuel, ASSOCIATE DIRECTOR FINANCIAL AID.GENERAL MAINTENANCE HELPER [address] [place] [address] [facility] Internal Medicine 08/07/24 Sydnee Sumner, ASSOCIATE DIRECTOR FINANCIAL AID.KOSHER DIETARY SERVICE MANAGER [address] [place] [address] [facility] Internal Medicine 08/07/24 Wired Sweatband Cutter Relationship Specialty Start Date End Date Domonique Guzman MD [address] [place] [address] PCP - General Internal Medicine 05/26/16 Jimmy Quintana MD [address] [place], [place] [id number] Primary Staff Physician Cardiology 01/28/22 Maryam Emmanuel, ASSOCIATE DIRECTOR FINANCIAL AID.GENERAL MAINTENANCE HELPER [address] [place] [address] [facility] Internal Medicine 08/07/24 Sydnee Sumner, ASSOCIATE DIRECTOR FINANCIAL AID.KOSHER DIETARY SERVICE MANAGER [address] [place] [address] [facility] Internal Medicine 08/07/24 Wired Sweatband Cutter Relationship Specialty Start Date End Date Domonique Guzman MD [address] [place] [address] PCP - General Internal Medicine 05/26/16 Jimmy Quintana MD [address] [place], [place] 5838[address] Primary Staff Physician Cardiology 01/28/22 Maryam Emmanuel, ASSOCIATE DIRECTOR FINANCIAL AID.GENERAL MAINTENANCE HELPER [address] [place] [address] [facility] 08/07/24 Sydnee Sumner, ASSOCIATE DIRECTOR FINANCIAL AID.KOSHER DIETARY SERVICE MANAGER [address] [place] [address] [facility] 08/07/24 Wired Sweatband Cutter Relationship Specialty Start Date End Date Domonique Guzman MD [address] [place] [address] PCP - General Internal Medicine 05/26/16 Jimmy Quintana MD [address] [place] [address] Primary Staff Physician Cardiology 01/28/22 Maryam Emmanuel, ASSOCIATE DIRECTOR FINANCIAL AID.GENERAL MAINTENANCE HELPER [address] [place] [address] [facility] Internal Medicine 08/07/24 Sydnee Sumner ASSOCIATE DIRECTOR FINANCIAL AID.KOSHER DIETARY SERVICE MANAGER [address] [place] [address] [facility] Internal Medicine 08/07/24 Wired Sweatband Cutter Relationship Specialty Start Date End Date Domonique Guzman MD [address] [place] [address] PCP - General Internal Medicine 05/26/16 Jimmy Quintana MD [address] [place] [address] Primary Staff Physician Cardiology 01/28/22 Maryam Emmanuel, ASSOCIATE DIRECTOR FINANCIAL AID.GENERAL MAINTENANCE HELPER [address] [place], [place] [address] [facility] Internal Medicine 08/07/24 Sydnee Sumner APRN.KOSHER DIETARY SERVICE MANAGER [address] [place], [place] 3[address] [facility] Internal Medicine 08/07/24 Wired Sweatband Cutter Relationship Specialty Start Date End Date Domonique Guzman MD [address] [place], [place] [address] PCP - General Internal Medicine 05/26/16 Jimmy Quintana MD [address] [place] [address] Primary Staff Physician Cardiology 01/28/22 Maryam Emmanuel APRN.GENERAL MAINTENANCE HELPER [address] [place], [place] [address] [facility] Internal Medicine 08/07/24 Team Status: Inactive Member Role Status Dates Dr. Domonique Guzman MD Primary Care Provider Active Start: October 30, 2024 End: October 30, 2024 Dr. Domonique Guzman MD Referring Provider Active Start: October 30, 2024 End: October 30, 2024 Mahsa Fischer BUILDING TRADES INSTRUCTOR, BUILDING TRADES INSTRUCTOR-C Attending Provider Active Start: October 30, 2024 End: October 30, 2024 Team Status: Inactive Member Role Status Dates Dr. Domonique Guzman MD Primary Care Provider Active Start: October 30, 2024 End: October 30, 2024 Mahsa Fischer BUILDING TRADES INSTRUCTOR, BUILDING TRADES INSTRUCTOR-C Attending Provider Active Start: October 30, 2024 End: October 30, 2024 Mahsa Fischer BUILDING TRADES INSTRUCTOR, BUILDING TRADES INSTRUCTOR-C Referring Provider Active Start: October 30, 2024 End: October 30, 2024 Wired Sweatband Cutter Relationship Specialty Start Date End Date Domonique Guzman MD [address] [place], [place] [address] PCP - General Internal Medicine 05/26/16 Jimmy Quintana MD [address] [facility] [place] [address] Primary Staff Physician Cardiology 01/28/22 Maryam Emmanuel, ASSOCIATE DIRECTOR FINANCIAL AID.GENERAL MAINTENANCE HELPER [address] [place] [address] [facility] 08/07/24 Sydnee Sumner ASSOCIATE DIRECTOR FINANCIAL AID.KOSHER DIETARY SERVICE MANAGER [address] [place] [address] [facility] Internal Medicine 11/21/24 Wired Sweatband Cutter Relationship Specialty Start Date End Date Domonique Guzman MD [address] [place] [address] PCP - General Internal Medicine 05/26/16 Jimmy Quintana MD [address] [place] [address] Primary Staff Physician Cardiology 01/28/22 Maryam Emmanuel, ASSOCIATE DIRECTOR FINANCIAL AID.GENERAL MAINTENANCE HELPER [address] [place] [address] [facility] Internal Medicine 08/07/24 Sydnee Sumner, ASSOCIATE DIRECTOR FINANCIAL AID.KOSHER DIETARY SERVICE MANAGER [address] [place] [address] [facility] Internal Medicine 11/21/24 Wired Sweatband Cutter Relationship Specialty Start Date End Date Domonique Guzman MD [address] [place] [address] PCP - General Internal Medicine 05/26/16 Jimmy Quintana MD [address] [place] [address] Primary Staff Physician Cardiology 01/28/22 Maryam Emmanuel, JOHN.GENERAL MAINTENANCE HELPER [address] [place] [address] [facility] 08/07/24 Sydnee Sumner APRN.KOSHER DIETARY SERVICE MANAGER [address] [place] [place] [address] [facility] 11/21/24 Wired Sweatband Cutter Relationship Specialty Start Date End Date Domonique Guzman MD [address] [place] [address] PCP - General Internal Medicine 05/26/16 Jimmy Quintana MD [address] [place] [address] Primary Staff Physician Cardiology 01/28/22 Maryam Emmanuel APRN.GENERAL MAINTENANCE HELPER [address] [place] [place] [address] [facility] 08/07/24 01/16/25 Sydnee Sumner APRN.KOSHER DIETARY SERVICE MANAGER [address] [place] [place] [address] [facility] Internal Medicine 11/21/24 Maryam Emmanuel APRN.GENERAL MAINTENANCE HELPER [address] [place] [place] [address] [facility] Internal Medicine 01/17/25 Wired Sweatband Cutter Relationship Specialty Start Date End Date Domonique Guzman MD [address] [place] [address] PCP - General Internal Medicine 05/26/16 Jimmy Quintana MD [address] [place] [address] Primary Staff Physician Cardiology 01/28/22 Sydnee Sumner APRN.KOSHER DIETARY SERVICE MANAGER [address] [place] [address] [facility] 11/21/24 Maryam Emmanuel APRN.GENERAL MAINTENANCE HELPER [address] [place], [place] [address] [facility] 01/17/25 Team Status: Active Member Role/Relationship Status Dates Dr. Domonique Guzman MD Primary Care Provider Active Team Status: Inactive Member Role/Relationship Status Dates Dr. Domonique Guzman MD Primary Care Provider Active Start: April 02, 2025 End: April 02, 2025 Dr. Samson Cohn MD Emergency Provider Active Start: April 02, 2025 End: April 02, 2025 Reason for Visit (unrecogniz ed section and content) Reason Comments Hospital F/U Reason Comments Palpitations Chest Pain Specialty Diagnoses / Procedures Referred By Contac t Referred To Contact Cardiology Diagnoses Atypical chest pain Family history of coronary artery disease Procedures CONSULT TO CARDIOLOGY OFFICE/OUTPATIENT [facility] 60-74 MINUTES Maryam Emmanuel APRN.GENERAL MAINTENANCE HELPER [address] [place] [address] Referral ID Status Reason Start Date Expiration Date V isits Requested Visits Authorized [id number] Closed PCP Requested Referral 12/12/2021 12/12/2022 1 1 Reason Comments Results Reason Comments Holter Monitor Application Reason Comments Patient Question advil Reason Comments COVID positive Home test Reason Comments Radiology CT Specialty Diagnoses / Procedures Referred By Contac t Referred To Contact CT IMAGING Diagnoses ACS (acute coronary syndrome) (HCC) Procedures CTA CORONARY W IVCON CTA HRT CORNRY ART/BYPASS GRFTS CONTRST 3D POST Jimmy Quintana MD [address] [place] [id number] Ct Imaging Referral ID Status Reason Start Date Expiration Date V isits Requested Visits Authorized [id number] Closed Auto-Generate d Referral 12/31/2021 02/07/2022 1 1 Reason Comments Follow Up 1 month Specialty Diagnoses / Procedures Referred By Contac t Referred To Contact Rheumatology Diagnoses Fibromyalgia Procedures CONSULT TO RHEUM/IMMUN DISEASE OFFICE/OUTPATIENT [facility] 60-74 MINUTES [place], ASSOCIATE DIRECTOR FINANCIAL AID.GENERAL MAINTENANCE HELPER [address] [place] [address] Referral ID Status Reason Start Date Expiration Date V isits Requested Visits Authorized [id number] Closed PCP Requested Referral 12/12/2021 12/12/2022 1 1 Reason Comments Radio Gen A21 Specialty Diagnoses / Procedures Referred By Contac t Referred To Contact XR IMAGING Diagnoses Pain in joint, multiple sites Pain in left hip Procedures XR HIP GENERAL 3V PELV/AP/LAT LEFT RADEX HIP UNILATERAL WITH PELVIS 2-3 VIEWS Samantha Butler MD [address] [place] [address] Xr Imaging Referral ID Status Reason Start Date Expiration Date V isits Requested Visits Authorized [id number] Closed Auto-Generate d Referral 01/29/2022 02/28/2023 1 1 Reason Comments Medication Problem Reason Comments Orders Reason Comments Yearly Exam Specialty Diagnoses / Procedures Referred By Contac t Referred To Contact Rheumatology / RHEUMATOLOGY Diagnoses Fibromyalgia Procedures CONSULT TO RHEUM/IMMUN DISEASE OFFICE/OUTPATIENT [facility] 60-74 MINUTES Maryam Emmanuel, ASSOCIATE DIRECTOR FINANCIAL AID.GENERAL MAINTENANCE HELPER [address] [place] [address] [facility] [address] [place] [address] Referral ID Status Reason Start Date Expiration Date Visits Requested Visits Authorized [id number] Authorized PCP Requested Referral 12/12/2021 01/27/2023 3 3 Reason Comments Pain R shoulder pain Reason Onset Date Comments Refill Request 04/04/2023 Reason Comments LESION, SKIN Reason Comments Abdominal Pain Reason Comments Question Reason Onset Date Comments Refill Request 05/24/2023 Reason Comments Mohs Specialty Diagnoses / Procedures Referred By Contac t Referred To Contact Dermatology Diagnoses Basal cell carcinoma of face Procedures MOHS OFFICE/OUTPATIENT NEW HIGH MDM 60-74 MINUTES Suyapa Peraza PA-C [address] [place] [address] Referral ID Status Reason Start Date Expiration Date V isits Requested Visits Authorized [id number] Closed PCP Requested Referral 04/19/2023 04/18/2024 1 1 Reason Comments Results Reason Comments Back Pain Reason Comments Full Body Skin Check Reason Comments Physical Reason Comments Appointment Rescheduled Reason Comments Refill Request Reason Onset Date Comments Refill Request 09/14/2024 Reason Comments Follow Up Chest Pain Intermittent Reason Onset Date Comments Refill Request 09/21/2024 Reason Comments Reminder Call Reason Comments Coronary Artery Disease raynaud Reason Onset Date Comments Refill Request 02/21/2025 INFORMATION SOURCE (unrecogn ized section and content) DATE CREATED AUTHOR 10/03/2024 [facility] DATE CREATED AUTHOR AUTHOR'S ORGANIZ ATION 11/13/2024 [facility] DATE CREATED AUTHOR AUTHOR'S ORGANIZ ATION 01/29/2025 [facility] FOR RECORDS PERTAINING TO PATIENTS WHO ARE OR HAVE BEEN ENROLLED IN A CHEMICAL DEPENDENCY/SUBSTANCEABUSE PROGRAM, SOME INFORMATION MAY BE OMITTED. This clinical summary was aggregated from multiple sources. Caution should be exercised in using it in the provision of clinical care. This summary normalizes information from multiple sources, and as a consequence, information in this document may materially change the coding, format and clinical context of patient data. In addition, data may be omitted in some cases. CLINICAL DECISIONS SHOULD BE BASED ON THE PRIMARY CLINICAL RECORDS. [employer] provides no warranty or guarantee of the accuracy or completeness of information in this document.
--- OUTSIDE RECORDS SUMMARY | 2025-04-02 22:57 | XMS RPT_ITS | CCD ---
Author Organization [facility] CliniSywy Care Team Providers Care Ampoule Filler And Sealer Name Role Phone Dr. Domonique Guzman Primary Care Provider Dr. Domonique Guzman Referring Provider Ronak BATES, JANA Thrasher Attending Provider Amado RETAIL SALESWORKER, RETAIL SALESWORKER-Isac Bragg Attending Provider Domonique Guzman MD Primary Care Provider Dr. Domonique Guzman Primary Care Provider Dr. Domonique Guzman Referring Provider Jimmy Quintana MD Unavailable [phone] Domonique Guzman MD Primary Care Provider Jimmy Quintana MD Unavailable [phone] Dr. Domonique Guzman Primary Care Provider Dr. Domonique Guzman Referring Provider Amado RETAIL SALESWORKER, ROSELIA-Isac Bragg Attending Provider Domonique Guzman MD Primary Care Provider Jimmy Quintana MD Unavailable [phone] Jimmy Quintana MD Unavailable Domonique Guzman MD Primary Care Provider Cholo BREED TO WEAN PRODUCTION TECHNICIAN.NAIL FEEDER, Maryam Unavailable Taisha BREED TO WEAN PRODUCTION TECHNICIAN.TRACK REPAIR LABORER, Sydnee Unavailable PROVIDER, UNKNOWN Referring Unavailable DOMONIQUE GUZMAN Primary Care Unavailable DOMONIQUE GUZMAN Primary Care Unavailable PROVIDER, UNKNOWN Referring Unavailable CHALO, TEJAL W Attending Unavailable TALAMPAS, DOMONIQUE D Primary Care Unavailable Taisha BREED TO WEAN PRODUCTION TECHNICIAN.TRACK REPAIR LABORER, Sydnee Unavailable [place] RETAIL SALESWORKER, Mahsa Attending Unavailable Talampas, Domonique D Primary Care Unavailable Talampas, Domonique D Referring Unavailable [place] RETAIL SALESWORKER, Mahsa Attending Unavailable [place] RETAIL SALESWORKER, Mahsa Referring Unavailable Talampas, Domonique D Primary Care Unavailable Arjun CALLAHAN, Dr. Domonique Pritchard Primary Care Provider Dr. Domonique Guzman MD Referring Provider Amado RETAIL SALESWORKER-C, Mahsa Attending Provider [place] RETAIL SALESWORKER-C, Mahsa Referring Provider Taisha BREED TO WEAN PRODUCTION TECHNICIAN.TRACK REPAIR LABORER, Sydnee Unavailable Emmanuel BREED TO WEAN PRODUCTION TECHNICIAN.NAIL FEEDER, Maryam Unavailable Emmanuel BREED TO WEAN PRODUCTION TECHNICIAN.NAIL FEEDER, Maryam Unavailable TALAMPAS, DOMONIQUE D Primary Care Unavailable TAISHA, SYDNEE Referring Unavailable TALAMPAS, DOMONIQUE D Primary Care Unavailable CARLTON PABON Attending Unavailabl e NOHEMY HILL Attending Unavailable TALAMPAS, DOMONIQUE D Primary Care Unavailable JIMMY QUINTANA Referring Unavailable TALAMPAS, DOMONIQUE D Primary Care [...] Unavailable TALAMPAS, DOMONIQUE D Primary Care Unavailable ACRLTON PABON Attending Unavailabl e TALAMPAS, DOMONIQUE D Primary Care Unavailable TAISHASYDNEE Attending Unavailable SELF Referring Unavailable Arjun CALLAHAN, Dr. Domonique Pritchard Primary Care Provider [phone] Lalit CALLAHAN, Dr. Davies Emergency Provider Allergies Allergy Classification Reported Allergen(s) Allergy Type Date of Onset Reaction(s) Facility (20 sources) Codeine; Translations: [CODEINE] Drug Allergy 8 GI Upset [facility] Work Phone: (20 sources) levoFLOXacin; Translations: [LEVOFLOXACIN] Drug Allergy 1 Other: See Comments [facility] Work Phone: (7 sources) Naproxen Drug Allergy 2 Tachycardia [facility] (20 sources) EPINEPHrine; Translations: [EPINEPHRINE] Drug Allergy 0 Other: See Comments [facility] (20 sources) Naproxen; Translations: [NAPROXEN SODIUM] Drug Allergy 3 Other: See Comments [facility] Work Phone: (1 source) Codeine Drug Allergy 5 [facility] Repository (1 source) levoFLOXacin Drug Allergy 5 [facility] Repository (1 source) Naproxen Drug Allergy 5 [facility] Repository Medications Current Medications Medication Drug Class(es) [...] on above: Take 1 capsule by mo [facility] daily before breakfast. triamcinolone acetonide 1 [...] above: [facility]. Completed/Discontinued Medications Medication Drug Class(es) [...] Test Name Value Interpretation Reference Range Facility [facility] 01-29-2025 CNCO Letter Text Normal [facility] CNOVon 01-03-2025 CNOV Office Visit (DERMMN ) JUSTINE BERGERON ([id number]) 1970 F Date Time Provider Department 01/03/25 [...] Past Histories independently gathered by the clinical operations support representative and the remaining scribed note accurately describes [...] Comments Comme (more content not included)... Normal [facility] CNOVon 12-20-2024 CNOV Office Visit (CATHMN ) JUSTINE BERGERON ([id number]) 1970 F Date Time Provider Department 12/20/24 11:00 AM JIMMY QUINTANA CATHMN During your visit today, we recorded the following information about you: Pulse Respiration Blood pressure Weight 69/minute 14/minute 118/78 62.9 kg Height 1.524 m Jimmy Quintana MD 12/20/2024 11:03 AM Signed Heart, Vascular and Thoracic Lily Dixie Matthew Department of Cardiovascular Medicine SECTION OF INTERVENTIONAL CARDIOLOGY OUTPATIENT VISIT DATE December 20, 2024 OUTPATIENT VISIT TYPE ESTABLISHED PRIMARY CARE PHYSICIAN: Domonique Guzman [address] [place] [address] REFERRING PHYSICIAN: Jimmy Quintana [facility] [address] CHIEF COMPLAINT: No chief complaint on file. [...] Mother 67 Cancer Father Heart Father 64 SD coronary stent Heart Brother 37 SD 3 stents Hypertension Brother other (Hemophelia) Brother [...] No STEMI Confirmed by TEJAL ISABEL MD ([id number]) on 09/22/2024 7:29:15 PM IMPRESSION: Ms. Bergeron [...] related to (more content not included)... Normal [facility] Comprehensive metabolic 2000 panelon 12-19-2024 Albumin [Mass/Vol] 4.3 g/dL Normal 3.9-4.9 [facility] Comment on above: Order Comment: Christian sears Type: BLOOD SPECIMENOrdering Facility: [facility] Address: [address] [place] [address] Performed By: #### 2 4323-8, 38155-0 ####[facility] LABCLIA [id number] [address] [place] ALP [Catalytic activity/Vol] 48 U/L Normal 34-123 [facility] Comment on above: Order Comment: Treei renu Type: BLOOD SPECIMENOrdering Facility: [facility] Address: [address] [place] [address] Performed By: #### 2 4323-8, 26569-5 ####[facility] LABCLIA [id number] [place] [address] [place] ALT [Catalytic activity/Vol] 20 U/L Normal 7-38 [facility] Comment on above: Order Comment: Speci men Type: BLOOD SPECIMENOrdering Facility: [facility] Address: [address] [place] [id number] Performed By: #### 2 4323-8, 27207-9 ####[facility] LABCLIA [id number] [address] [address] [place] Anion gap [Moles/Vol] 10 mmol/L Normal 8-15 [facility] Comment on above: Order Comment: Speci men Type: BLOOD SPECIMENOrdering Facility: [facility] Address: [address] [place] [address] Performed By: #### 2 4323-8, 32393-5 ####[facility] LABCLIA [id number] [place] [address] [place] AST [Catalytic activity/Vol] 34 U/L Normal 13-35 [facility] Comment on above: Order Comment: Speci men Type: BLOOD SPECIMENOrdering Facility: [facility] Address: [address] [place], [place] [address] Performed By: #### 2 4323-8, 45077-5 ####[facility] LABCLIA [id number] [place] [address] [place] Bilirubin [Mass/Vol] 0.6 mg/dL Normal 0.2-1.3 [facility] Comment on above: Order Comment: Speci men Type: BLOOD SPECIMENOrdering Facility: [facility] Address: [address] [place], [place] [address] Performed By: #### 2 4323-8, 56838-6 ####[facility] LABCLIA [id number] [address] [address] [place] Calcium [Mass/Vol] 9.6 mg/dL Normal 8.5-10.2 [facility] Comment on above: Order Comment: Speci men Type: BLOOD SPECIMENOrdering Facility: [facility] Address: [address] [place], [place] [address] Performed By: #### 2 4323-8, 96603-2 ####[facility] LABCLIA [id number] [place] [address] [place] Chloride [Moles/Vol] 104 mmol/L Normal 98-107 [facility] Comment on above: Order Comment: Speci men Type: BLOOD SPECIMENOrdering Facility: [facility] Address: [address] [place] [address] Performed By: #### 2 4323-8, 53588-7 ####[facility] LABIA [id number] [place] [address] [place] CO2 [Moles/Vol] 28 mmol/L Normal 22-30 [facility] Comment on above: Order Comment: Speci men Type: BLOOD SPECIMENOrdering Facility: [facility] Address: [address] [place] [address] Performed By: #### 2 4323-8, 13153-0 ####[facility] LABIA [id number] [address] [place] Creatinine [Mass/Vol] 0.67 mg/dL Normal 0.58-0.96 [facility] Comment on above: Order Comment: Speci men Type: BLOOD SPECIMENOrdering Facility: [facility] Address: [address] [place] [address] Performed By: #### 2 4323-8, 01858-1 ####[facility] [id number] [place] [address] [place] Creatinine and Glomerular filtration rate.predicted panel (S/P/Bld) 104 mL/min/1.73m??? Normal >=60 [facility] Comment on above: Order Comment: Speci men Type: BLOOD SPECIMENOrdering Facility: [facility] Address: [address] [place] [address] Result Comment: Radha mated Glomerular Filtration Rate [...] actual GFR. Performed By: #### 2 4323-8, 85537-2 ####[facility] LABCLIA [id number] [facility] [id number] [place] [address] [place] Glucose [Mass/Vol] 85 mg/dL Normal 74-99 [facility] Comment on above: Order Comment: Christian sears Type: BLOOD SPECIMENOrdering Facility: [facility] Address: [address] [place] [address] Result Comment: The [place] Diabetes Association (ADA) provides guidance for cutoff [...] Standards of Medical Care in Diabetes 2016, [place] Diabetes Association. Diabetes Care. 2016.39(Suppl 1). Performed By: #### 2 4323-8, 94093-2 ####[facility] LABCLIA [id number] [facility] RackHuntJACOBS MEDICAL CENTERK [id number] [place] [address] [place] Potassium [Moles/Vol] 3.8 mmol/L Normal 3.7-5.1 [facility] Comment on above: Order Comment: Christian sears Type: BLOOD SPECIMENOrdering Facility: [facility] Address: [address] [place] [address] Performed By: #### 2 4323-8, 78515-1 ####[facility] LABCLIA [id number] [facility] [id number] [address] [place] Protein [Mass/Vol] 6.8 g/dL Normal 6.3-8.0 [facility] Comment on above: Order Comment: Speci men Type: BLOOD SPECIMENOrdering Facility: [facility] Address: [address] [place], [place] [address] Performed By: #### 2 4323-8, 20585-9 ####[facility] LABCLIA [id number] [address] [place] [address] [place] Sodium [Moles/Vol] 142 mmol/L Normal 136-144 [facility] Comment on above: Order Comment: Speci men Type: BLOOD SPECIMENOrdering Facility: [facility] Address: [address] [place] [address] Performed By: #### 2 4323-8, 36487-1 ####[facility] LABIA [id number] [place] [address] [place] Urea nitrogen [Mass/Vol] 16 mg/dL Normal 7-21 [facility] Comment on above: Order Comment: Speci men Type: BLOOD SPECIMENOrdering Facility: [facility] Address: [address] [place] [address] Performed By: #### 2 4323-8, 33996-5 ####[facility] LABIA [id number] [address] [place] [address] [place] Lipid 1996 panelon 5 Cholesterol [Mass/Vol] 150 mg/dL Normal <200 [facility] Comment on above: Order Comment: Speci men Type: BLOOD SPECIMENOrdering Facility: [facility] Address: [address] [place], [place] [address] Result Comment: <200 mg/dL, Desirable 200-239 mg/dL, Borderline high >239 mg/dL, High Performed By: #### 2 4323-8, 26470-5 ####[facility] LABIA [id number] [address] [address] [place] Cholesterol in HDL [Mass/Vol] 63 mg/dL Normal >39 [facility] Comment on above: Order Comment: Speci men Type: BLOOD SPECIMENOrdering Facility: [facility] Address: [address] [place] [address] Result Comment: 40-5 9 mg/dL, Acceptable >59 mg/dL, High: Negative risk factor for coronary heart disease <40 mg/dL, Low: Positive risk factor for coronary heart disease Performed By: #### 2 4323-8, 56652-3 ####[facility] LABCLIA [id number] [place] [address] [place] Cholesterol in LDL [Mass/Vol] 76 mg/dL Normal <100 [facility] Comment on above: Order Comment: Speci men Type: BLOOD SPECIMENOrdering Facility: [facility] Address: [address] [place] [address] Result Comment: <100 mg/dL, Optimal 100-129 mg/dL, Near optimal/above optimal 130-159 mg/dL, Borderline high 160-189 mg/dL, High >189 mg/dL, Very high Secondary prevention optimal LDL Cholesterol levels are recommended to be <70 mg/dL LDL cholesterol is calculated using the Rosado-NIH equation. Performed By: #### 2 4323-8, ####[facility] LABCLIA [id number] [address] STATES OF [facility] Cholesterol in LDL/Cholesterol in HDL [Mass ratio] 1.21 {ratio} Normal <2.54 [facility] Comment on above: Order Comment: Speci men Type: BLOOD SPECIMENOrdering Facility: [facility] Address: [address] [place] [address] Result Comment: [place] johnce: 1. National Cholesterol Education Program ATP III Guideline At-A-Glance Quick Desk Reference: National Heart, Lung, and Blood Lily. National Institutes of Health. 2001: NIH Publication No. 01-3305. 2. An International Atherosclerosis Society position paper: global recommendations for the management of dyslipidemia: executive summary, Atherosclerosis. 2014: 232(2):410-413. Performed By: #### 2 4323-8, 47512-3 ####[facility] LABCLIA [id number] [address] [address] [place] Cholesterol in VLDL [Mass/Vol] 7 mg/dL Normal <30 [facility] Comment on above: Order Comment: Speci men Type: BLOOD SPECIMENOrdering Facility: [facility] Address: [address] [place] [address] Performed By: #### 2 4323-8, 97135-0 ####[facility] LABCLIA [id number] [facility]IL[facility]K [address] [place] [address] [place] Cholesterol non HDL [Mass/Vol] 87 mg/dL Normal <130 [facility] Comment on above: Order Comment: Speci men Type: BLOOD SPECIMENOrdering Facility: [facility] Address: [address] [place] [address] Result Comment: <130 mg/dL, Optimal 130-159 mg/dL, Near optimal/above optimal 160-189 mg/dL, Borderline high 190-219 mg/dL, High >219 mg/dL, Very high Secondary prevention optimal non HDL Cholesterol levels are recommended to be <100 mg/dL Performed By: #### 2 4323-8, ####[facility] LABCLIA [id number] [facility] [place] [address] [place] Cholesterol.total/Chol esterol in HDL [Mass ratio] 2.38 {ratio} Normal <5.10 [facility] Comment on above: Order Comment: Speci men Type: BLOOD SPECIMENOrdering Facility: [facility] Address: [address] [place] [address] Performed By: #### 2 4323-8, ####[facility] LABCLIA [id number] [facility] AVENUEJACOBS MEDICAL CENTERK [address] [place] [address] [place] FASTING TIME 12 hrs Normal [facility] Comment on above: Order Comment: Speci men Type: BLOOD SPECIMENOrdering Facility: [facility] Address: [address] [place] [address] Performed By: #### 2 4323-8, 40396-0 ####[facility] LABCLIA [id number] [place] [id number] [place] Triglyceride [Mass/Vol] 49 mg/dL Normal <150 [facility] Comment on above: Order Comment: Speci men Type: BLOOD SPECIMENOrdering Facility: [facility] Address: [address] [place] [address] Result Comment: <150 mg/dL, Normal 150-199 mg/dL, Borderline high 200-499 mg/dL, High >499 mg/dL, Very high Performed By: #### 2 4323-8, 37986-1 ####[facility] LABCLIA [id number] [place] [address] [place] DESTINEE SCREENING W TOMOon 11-20 [place]STINEE SCREENING W PAULINO * * *Final Report* * * DATE OF EXAM: Nov 20 2024 2:34PM WRW 0582 - DESTINEE SCREENING W PAULINO / PROCEDURE REASON: Encounter for screening mammogram for breast cancer * * * * Physician Interpretation * * * * RESULT: [place] [address] [place] [address] #[id number] - DESTINEE SCREENING W PAULINO HISTORY: 54 [...] Eddie Mackay M.D. Electronically signed on: 11/22/2024 Financial Processing Clerk: COY Transcribe Date/Time: Nov 20 2024 2:25P Dictated by: EDDIE MACKAY MD This examination was interpreted and the report reviewed and electronically signed by: EDDIE MACKAY MD on Nov 22 2024 9:17PM EST [id number] Normal [facility] Genital Culture Comprehensiv joey 11-02-2024 VAC Reason for Exam: vaginal irritation Normal vaginal kuldeep isolated. No yeast, Gardnerella, Neisseria or beta-hemolytic Streptococcus isolated. Normal [facility] Comment on above: Performed By: #### Price 100.3200, M100.1999 #### [facility] [address] [place], [place], [address] Genital cultureOrdered By: Price Fischer on 10-30-2024 Genital Culture Neisseria or beta-hemolytic Streptococcus isolated. [facility] Gram Stainon 10-30-2024 GS Reason for Exam: vaginal irritation Gram Stain No organisms seen No cells seen Normal [facility] Comment on above: Performed By: #### Price 100.3200, M100.1999 #### [facility] [address] [place], [place], [address] Gram stainOrdered By: Mahsa Fischer on 10-30-2024 Microscopic observation Gram stain Nom (Unsp spec) [facility] Extractor Operator Office Visit Reporton 10-30-2024 Extractor Operator Office Visit Report [facility] [address], [address] [place] [address] OFFICE VISIT Date of Service: 10/30/24 MR#: [id number] Acct: [id number] Name: JUSTINE BERGERON Rep #: [id number] : 1970 Provider: AIDEE herman Age/Sex: 54/F Location[facility] Status: Signed Intake Vital Signs 10/27/23 13:19 10/30/24 08:12 10/30/24 08:17 Height 5 ft 5 ft 5 ft Weight: 145 lb 6 oz BMI 28.3 BP 122/70 H 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 Normal [facility] US CAROTID ARTERIES TELMA VAS LABon 10-09-2024 US CAROTID ARTERIES [facility]ELMA VAS LAB Non-Invasive Vascular Laboratory [place] [facility] Carotid Duplex Bilateral/Complete Date [...] Subclavian artery: Patent. Technologist: Deja Xavier RVT, [facility] Ordering physician: JIMMY QUINTANA Interpreting physician: Aguila Crowley MD, TOMAS Final CC [employer] [facility] Image : [id number] See Link below for Image Normal [facility] CARDIAC PERF STRESS/EXERC ISEon 10-02-2024 [place] CARDIAC PERF STRESS/EXERCISE * * *Final Report* * * DATE OF EXAM: Oct 02 2024 9:58AM SIOBHAN 0004 - [place] CARDIAC PERF STRESS/EXERCISE / PROCEDURE REASON: * * * * Physician Interpretation * * * * Stress Recycling Technician Report: [facility] Date of service: 10/02/2024 8:05:06 AM Supervising [...] later. See administered radiotracer and doses below. [facility] Date of service: 10/02/2024 8:05:06 AM Ordering [...] * * * ------ Stress ECG Report: [facility] Date of service: 10/02/2024 8:05:06 AM Ordering physician: JIMMY QUINTANA accounts payable specialist: Liberty Hubbard Gate Supervisor: Myranda Reyes Interpreting physician: Krysta Willis MD [...] 176/94 mmHg. The double product achieved was [id number]. Medications: Last Used ASPIRIN PEPCID METOPROLOL CRESTOR [...] 146 1 (more content not included)... Normal [facility] W multipl e states of exerciseon 10-02-2024 * * *Final Report* * * DATE OF EXAM: Oct 02 2024 9:58AM SIOBHAN 0004 - [place] CARDIAC PERF STRESS/EXERCISE / PROCEDURE REASON: * * * * Physician Interpretation * * * * Stress Recycling Technician Report: [facility] Date of service: 10/02/2024 8:05:06 AM Supervising [...] later. See administered radiotracer and doses below. [facility] Date of service: 10/02/2024 8:05:06 AM Ordering [...] * * * ------ Stress ECG Report: [facility] Date of service: 10/02/2024 8:05:06 AM Ordering physician: JIMMY QUINTANA accounts payable specialist: Liberty Hubbard Gate Supervisor: Myranda Reyes Interpreting physician: Krysta Willis MD [...] 176/94 mmHg. The double product achieved was [id number]. Medications: Last Used ASPIRIN PEPCID METOPROLOL CRESTOR [...] +--- ------+ + (more content not included)... [facility] Provider, Rocco Monsalve - 10/02/2024 * * *Final Report* * * DATE OF EXAM: Oct 02 2024 9:58AM SIOBHAN 0004 - [place] CARDIAC PERF STRESS/EXERCISE / PROCEDURE REASON: * * * * Physician Interpretation * * * * Stress Recycling Technician Report: [facility] Date of service: 10/02/2024 8:05:06 AM Supervising [...] later. See administered radiotracer and doses below. [facility] Date of service: 10/02/2024 8:05:06 AM Ordering [...] * * * ------ Stress ECG Report: [facility] Date of service: 10/02/2024 8:05:06 AM Ordering physician: JIMMY QUINTANA accounts payable specialist: Liberty Hubbard Gate Supervisor: Myranda Reyes Interpreting physician: Krysta Willis MD [...] 176/94 mmHg. The double product [place] [id number]. Medications: Last Used ASPIRIN PEPCID METOPROLOL FUADABI [...] +--- ------+ + (more content not included)... [facility] Radiology Study observation (narrative) [facility] NM Heart Perfusion W multipl e states of exerciseOrdered By: Ccf Provider on 10-02-2024 [facility] CNPNon 09-29-2024 CNPN Telephone (CDLBME) JUSTINE BERGREON ([id number]) 1970 F Date Time Provider Department 09/29/24 [facility] During your visit today, we recorded [...] Fully Assessed Reason for Visit: Reminder Call [[id number]] Prescriptions as of 09/29/2024 - rosuvastatin (CRESTOR) [...] Status:Closed by LIBERTY HUBBARD on 09/29/24 Normal [facility] CBC W Auto Differential pane l (Bld)on 09-22-2024 Basophils (Bld) [#/Vol] 0.05 10*3/uL Normal <0.11 [facility] Comment on above: Order Comment: Speci men Type: BLOOD SPECIMEN Ordering Facility: [facility] Address: [address] [place] [address] Performed By: #### 5 7021-8 #### [facility] CLIA [id number] [address] Basophils/100 WBC (Bld) 0.8 % Normal [facility] Comment on above: Order Comment: Speci men Type: BLOOD SPECIMEN Ordering Facility: [facility] Address: [address] [place] [address] Performed By: #### 5 7021-8 #### [facility] CLIA [id number] [address] [place] Differential cell count method Nom (Bld) Auto Normal [facility] Comment on above: Order Comment: Speci men Type: BLOOD SPECIMEN Ordering Facility: [facility] Address: [address] [place] [address] Performed By: #### 5 7021-8 #### [facility] CLIA [id number] [address] [place] [address] [place] Eosinophils (Bld) [#/Vol] 0.14 10*3/uL Normal <0.46 [facility] Comment on above: Order Comment: Speci men Type: BLOOD SPECIMEN Ordering Facility: [facility] Address: [address] [place] [address] Performed By: #### 5 7021-8 #### [facility] CLIA [id number] [address] [place] [facility] Eosinophils/100 WBC (Bld) 2.2 % Normal [facility] Comment on above: Order Comment: Speci men Type: BLOOD SPECIMEN Ordering Facility: [facility] Address: [address] [place] [address] Performed By: #### 5 7021-8 #### [facility] CLIA [id number] [address] [place] Erythrocyte distribution width (RBC) [Ratio] 11.6 % Normal 11.5-15.0 [facility] Comment on above: Order Comment: Speci men Type: BLOOD SPECIMEN Ordering Facility: [facility] Address: [address] [place] [address] Performed By: #### 5 7021-8 #### [facility] CLIA [id number] [address] [place] Hematocrit (Bld) [Volume fraction] 38.7 % Normal 36.0-46.0 [facility] Comment on above: Order Comment: Speci men Type: BLOOD SPECIMEN Ordering Facility: [facility] Address: [address] [place] [address] Performed By: #### 5 7021-8 #### [facility] CLIA [id number] [address] [place] Hemoglobin (Bld) [Mass/Vol] 13.4 g/dL Normal 11.5-15.5 [facility] Comment on above: Order Comment: Speci men Type: BLOOD SPECIMEN Ordering Facility: [facility] Address: [address] [place] [address] Performed By: #### 5 7021-8 #### [facility] CLIA [id number] [address] [place] Immature granulocytes (Bld) [#/Vol] 10*3/uL Normal <0.10 [facility] Comment on above: Order Comment: Speci men Type: BLOOD SPECIMEN Ordering Facility: [facility] Address: [address] [place] [address] Performed By: #### 5 7021-8 #### [facility] CLIA [id number] [address] Immature granulocytes/100 WBC (Bld) 0.0 % Normal [facility] Comment on above: Order Comment: Speci men Type: BLOOD SPECIMEN Ordering Facility: [facility] Address: [address] [place] [address] Performed By: #### 5 7021-8 #### [facility] CLIA [id number] [address] Lymphocytes (Bld) [#/Vol] 3.05 10*3/uL Normal 1.00-4.00 [facility] Comment on above: Order Comment: Speci men Type: BLOOD SPECIMEN Ordering Facility: [facility] Address: [address] [place] [address] Performed By: #### 5 7021-8 #### [facility] CLIA [id number] [address] Lymphocytes/100 WBC (Bld) 47.4 % Normal [facility] Comment on above: Order Comment: Speci men Type: BLOOD SPECIMEN Ordering Facility: [facility] Address: [address] [place] [address] Performed By: #### 5 7021-8 #### [facility] CLIA [id number] [address] MCH (RBC) [Entitic mass] 31.5 pg Normal 26.0-34.0 [facility] Comment on above: Order Comment: Speci men Type: BLOOD SPECIMEN Ordering Facility: [facility] Address: [address] [place] [address] Performed By: #### 5 7021-8 #### [facility] CLIA [id number] [address] MCHC (RBC) [Mass/Vol] 34.6 g/dL Normal 30.5-36.0 [facility] Comment on above: Order Comment: Speci men Type: BLOOD SPECIMEN Ordering Facility: [facility] Address: [address] [place] [address] Performed By: #### 5 7021-8 #### [facility] CLIA [id number] [address] MCV (RBC) [Entitic vol] 91.1 fL Normal 80.0-100.0 [facility] Comment on above: Order Comment: Speci men Type: BLOOD SPECIMEN Ordering Facility: [facility] Address: [address] [place] [address] Performed By: #### 5 7021-8 #### [facility] CLIA [id number] [address] [place] [address] [place] Monocytes (Bld) [#/Vol] 0.56 10*3/uL Normal <0.87 [facility] Comment on above: Order Comment: Speci men Type: BLOOD SPECIMEN Ordering Facility: [facility] Address: [address] [place] [address] Performed By: #### 5 7021-8 #### [facility] CLIA [id number] [address] [place] Monocytes/100 WBC (Bld) 8.7 % Normal [facility] Comment on above: Order Comment: Speci men Type: BLOOD SPECIMEN Ordering Facility: [facility] Address: [address] [place] [address] Performed By: #### 5 7021-8 #### [facility] CLIA [id number] [address] [place] Neutrophils (Bld) [#/Vol] 2.63 10*3/uL Normal 1.45-7.50 [facility] Comment on above: Order Comment: Speci men Type: BLOOD SPECIMEN Ordering Facility: [facility] Address: [address] [place] [address] Performed By: #### 5 7021-8 #### [facility] CLIA [id number] [address] [place] Neutrophils/100 WBC (Bld) 40.9 % Normal [facility] Comment on above: Order Comment: Speci men Type: BLOOD SPECIMEN Ordering Facility: [facility] Address: [address] [place] [address] Performed By: #### 5 7021-8 #### [facility] CLIA [id number] [address] [place] [address] [place] Nucleated RBC (Bld) [#/Vol] 10*3/uL Normal <0.01 [facility] Comment on above: Order Comment: Speci men Type: BLOOD SPECIMEN Ordering Facility: [facility] Address: [address] [place] [address] Performed By: #### 5 7021-8 #### [facility] CLIA [id number] [address] [place] [address] [place] Nucleated RBC/100 WBC (Bld) [Ratio] 0.0 /100 WBC Normal [facility] Comment on above: Order Comment: Speci men Type: BLOOD SPECIMEN Ordering Facility: [facility] Address: [address] [place] [address] Performed By: #### 5 7021-8 #### [facility] CLIA [id number] [address] [place] [address] [place] Platelet mean volume (Bld) [Entitic vol] 10.1 fL Normal 9.0-12.7 [facility] Comment on above: Order Comment: Speci men Type: BLOOD SPECIMEN Ordering Facility: [facility] Address: [address] [place] [address] Performed By: #### 5 7021-8 #### [facility] CLIA [id number] [address] [place] Platelets (Bld) [#/Vol] 238 10*3/uL Normal 150-400 [facility] Comment on above: Order Comment: Speci men Type: BLOOD SPECIMEN Ordering Facility: [facility] Address: [address] [place] [address] Performed By: #### 5 7021-8 #### [facility] CLIA [id number] [address] [place] RBC (Bld) [#/Vol] 4.25 10*6/uL Normal 3.90-5.[address] [facility] Comment on above: Order Comment: Speci men Type: BLOOD SPECIMEN Ordering Facility: [facility] Address: [address] [place] [address] Performed By: #### 5 7021-8 #### [facility] CLIA [id number] [address] [place] WBC (Bld) [#/Vol] 6.43 10*3/uL Normal 3.70-11.[address] [facility] Comment on above: Order Comment: Speci men Type: BLOOD SPECIMEN Ordering Facility: [facility] Address: [address], [place] [address] Performed By: #### 5 7021-8 #### [facility] [id number] [address] [place] [address] [facility] Giovanna 09-22-2024 CNPN Telephone (CATHMN) JUSTINE BERGERON ([id number]) 1970 F Date Time Provider Department 09/22/24 JIMMY QUINTANA [facility] During your visit today, we recorded the following information about you: Jing Sagastume 09/22/2024 12:36 PM Signed Call from patient with concern about the EKG results in [facility]. Patient can be reached at [phone] Allergies As of Date: 09/22/2024 Noted Allergy [...] Status:Closed by LUIS RICKS on 09/26/24 Normal [facility] metabolic 2000 panelon 09-22-2024 Albumin [Mass/Vol] 4.3 g/dL Normal 3.9-4.9 [facility] Comment on above: Order Comment: Speci men Type: BLOOD SPECIMEN Ordering Facility: [facility] Address: [address] [place] [id number] Performed By: #### 2 4323-8, [id number], 67772-1, 3040-3 #### [facility] CLIA [id number] [address] [place] [address] [place] ALP [Catalytic activity/Vol] 46 U/L Normal 34-123 [facility] Comment on above: Order Comment: Speci men Type: BLOOD SPECIMEN Ordering Facility: [facility] Address: [address] [place] [address] Performed By: #### 2 4323-8, [id number], 52042-0, 3040-3 #### [facility] CLIA [id number] [address] [place] ALT [Catalytic activity/Vol] 16 U/L Normal 7-38 [facility] Comment on above: Order Comment: Speci men Type: BLOOD SPECIMEN Ordering Facility: [facility] Address: [address] [facility] [place] [address] Performed By: #### 2 4323-8, [id number], 91837-2, 0-3 #### [facility] CLIA [id number] [address] [place] [address] [place] [facility] Anion gap [Moles/Vol] 10 mmol/L Normal 8-15 [facility] Comment on above: Order Comment: Speci men Type: BLOOD SPECIMEN Ordering Facility: [facility] Address: [address] [place] [address] Performed By: #### 2 4323-8, [id number], 26597-3, 3040-3 #### [facility] CLIA [id number] [address] [place] [address] [place] AST [Catalytic activity/Vol] 26 U/L Normal 13-35 [facility] Comment on above: Order Comment: Speci men Type: BLOOD SPECIMEN Ordering Facility: [facility] Address: [address] [place] [address] Performed By: #### 2 4323-8, [id number], 45300-5, 3040-3 #### [facility] CLIA [id number] [address] [place] [address] [place] Bilirubin [Mass/Vol] 0.9 mg/dL Normal 0.2-1.3 [facility] Comment on above: Order Comment: Speci men Type: BLOOD SPECIMEN Ordering Facility: [facility] Address: [address] [place] [address] Performed By: #### 2 4323-8, [id number], 87708-8, 3040-3 #### [facility] CLIA [id number] [address] [place] [address] [place] Calcium [Mass/Vol] 10.1 mg/dL Normal 8.5-10.2 [facility] Comment on above: Order Comment: Speci men Type: BLOOD SPECIMEN Ordering Facility: [facility] Address: [address] [place] [address] Performed By: #### 2 4323-8, [id number], , 0-3 #### [facility] CLIA [id number] [address] [place] [address] [place] Chloride [Moles/Vol] 100 mmol/L Normal 98-107 [facility] Comment on above: Order Comment: Speci men Type: BLOOD SPECIMEN Ordering Facility: [facility] Address: [address] [place] [address] Performed By: #### 2 4323-8, [id number], , 0-3 #### [facility] CLIA [id number] [address] [place] CO2 [Moles/Vol] 28 mmol/L Normal 22-30 [facility] Comment on above: Order Comment: Speci men Type: BLOOD SPECIMEN Ordering Facility: [facility] Address: [address] [place] [address] Performed By: #### 2 4323-8, [id number], , 3040-3 #### [facility] CLIA [id number] [address] [place] [address] [place] Creatinine [Mass/Vol] 0.70 mg/dL Normal 0.58-0.96 [facility] Comment on above: Order Comment: Speci men Type: BLOOD SPECIMEN Ordering Facility: [facility] Address: [address] [place] [address] Performed By: #### 2 4323-8, [id number], 96154-8, 0-3 #### [facility] CLIA [id number] [address] [place] [address] [place] Creatinine and Glomerular filtration rate.predicted panel (S/P/Bld) 103 mL/min/1.73m??? Normal >=60 [facility] Comment on above: Order Comment: Christian sears Type: BLOOD SPECIMEN Ordering Facility: [facility] Address: [address] [place] [address] Result Comment: Radha mated Glomerular Filtration Rate [...] actual GFR. Performed By: #### 2 4323-8, [id number], 89280-0, 0-3 #### [facility] CLIA [id number] [address] [place] [address] [place] Glucose [Mass/Vol] 107 mg/dL High 74-99 [facility] Comment on above: Order Comment: Christian sears Type: BLOOD SPECIMEN Ordering Facility: [facility] Address: [address] [place] [address] Result Comment: The [place] Diabetes Association (ADA) provides guidance for cutoff [...] Standards of Medical Care in Diabetes 2016, [place] [employer]. Diabetes Care. 2016.39(Suppl 1). Performed By: #### 2 4323-8, ULP6698, 05724-5, 0-3 #### [facility] CLIA [id number] [address] [place] [address] [place] Potassium [Moles/Vol] 3.6 mmol/L Low 3.7-5.1 [facility] Comment on above: Order Comment: Speci men Type: BLOOD SPECIMEN Ordering Facility: [facility] Address: [address] [place] [address] Performed By: #### 2 4323-8, [id number], , 0-3 #### [facility] CLIA [id number] [address] [place] [address] [place] Protein [Mass/Vol] 7.2 g/dL Normal 6.3-8.0 [facility] Comment on above: Order Comment: Speci men Type: BLOOD SPECIMEN Ordering Facility: [facility] Address: [address] [place] [address] Performed By: #### 2 4323-8, [id number], , 0-3 #### [facility] CLIA [id number] [address] [place] Sodium [Moles/Vol] 138 mmol/L Normal 136-144 [facility] Comment on above: Order Comment: Speci men Type: BLOOD SPECIMEN Ordering Facility: [facility] Address: [address] [place] [address] Performed By: #### 2 4323-8, [id number], , 0-3 #### [facility] CLIA [id number] [address] [place] [address] [place] Urea nitrogen [Mass/Vol] 16 mg/dL Normal 7-21 [facility] Comment on above: Order Comment: Speci men Type: BLOOD SPECIMEN Ordering Facility: 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 Normal [facility] ED NOTE HNO ID: [id number] Author: NEO FERMIN RN Service: Nursing Author Type: Registered Nurse Type: ED Notes Filed: 09/22/2024 21:09 Note Text: Pt is to follow up with her medical dr as per instructed po fluids were encouraged return to the er for any changes Normal [facility] ED NOTE HNO ID: [id number] Author: NEO FERMIN RN Service: Nursing Author Type: Registered Nurse Type: ED Notes Filed: 09/22/2024 20:47 Note Text: Dr Isabel has rounded Normal [facility] ED NOTE HNO ID: [id number] Author: NEO FERMIN RN Service: Nursing Author Type: Registered Nurse Type: ED Notes Filed: 09/22/2024 19:56 Note Text: Pt to radiology per the er cart for a chest xray her remains at the bedside Normal [facility] ED NOTE HNO ID: [id number] Author: NEO FERMIN RN Service: Nursing Author Type: Registered Nurse Type: ED Notes Filed: 09/22/2024 19:56 Note Text: Pt is in a position of comfort denies needs states she has an occasional chest pain right side which started last evening denies sweating denies nausea or vomiting Normal [facility] ED PROV NOTEon 09-22-2024 ED PROV NOTE HNO ID: [id number] Author: TEJAL ISABEL MD Service: ? Author [...] and spreads out. She just saw her chief catalyst operator 2 days ago and had a positive [...] Mother 67 Cancer Father Heart Father 64 SD coronary stent Heart Brother 37 SD 3 stents Hypertension Brother other (Hemophelia) Brother [...] No STEMI Confirmed by TEJAL ISABEL MD ([id number]) on 09/22/2024 7:29:15 PM Procedures ED Course [...] of uncer (more content not included)... Normal [facility] EKGon 09-22-2024 Electrocardiogram Ventricular Rate : 7 0 BPM Atrial Rate : 70 BPM P-R Interval : 126 ms QRS Duration : 88 ms Q-T Interval : 390 ms QTC Calculation(Bazett) : 421 ms Calculated P Mundelein : 57 degrees Calculated R Mundelein : 33 degrees Calculated T Mundelein : 40 degrees NORMAL SINUS RHYTHM NORMAL ECG No STEMI Confirmed by TEJAL ISABEL MD ([id number]) on 09/22/2024 7:29:15 PM NAME : JUSTINE BERGERON PID : [id number] : 1970 Gender : Female Race : ORD : Procedure Date : Sep 22 2024 19:20:01 Edit Date : Sep 22 2024 19:29:16 Diagnosis: NORMAL SINUS RHYTHM NORMAL ECG No STEMI Confirmed by TJEAL ISABEL MD ([id number]) on 09/22/2024 7:29:15 PM Test Reason : Location : 1 : ER ED Overread By : TEJAL ISABEL MD Edited By : TEJAL ISABEL MD Referred By : , Acquired by : [id number], [facility] HIGH SENSITIVITY TROPONIN T (INITIAL)on 09-22-2024 Troponin T.cardiac High sensitivity method [Mass/Vol] <6 Normal <12 [facility] Comment on above: Order Comment: Christian sears Type: BLOOD SPECIMEN Ordering Facility: [facility] Address: [address] [place] [address] Performed By: #### 2 4323-8, [id number], 57161-3, 0-3 #### [facility] CLIA [id number] [address] [place] [address] [place] HIGH SENSITIVITY TROPONIN T (SECOND)on 09-22-2024 Troponin T.cardiac High sensitivity method [Mass/Vol] <6 Normal <12 [facility] Comment on above: Order Comment: Christian sears Type: BLOOD SPECIMEN Ordering Facility: [facility] Address: [address] [place] [address] Performed By: #### L [id number] #### [facility] CLIA [id number] [address] [place] [address] [place] Lipase SerPl-cCncon 09-22-19 25 Lipase [Catalytic activity/Vol] 44 U/L Normal 16-61 [facility] Comment on above: Order Comment: Christian sears Type: BLOOD SPECIMEN Ordering Facility: [facility] Address: [address] [place] [address] Performed By: #### 2 4323-8, [id number], 43717-5, 3040-3 #### [facility] CLIA [id number] [address] [place] [address] [place] Magnesium SerPl-mCncon 09-22 Magnesium [Mass/Vol] 2.0 mg/dL Normal 1.7-2.3 [facility] Comment on above: Order Comment: Speci men Type: BLOOD SPECIMEN Ordering Facility: [facility] Address: [address] [place] [address] Performed By: #### 2 4323-8, [id number], 46192-4, 3039-3 #### [facility] CLIA [id number] [address] [place] [address] [place] XR CHEST 2V [...] tissues: Unremarkable. IMPRESSION: No acute radiographic abnormality. Financial Processing Clerk: PSCB Transcribe Date/Time: Sep 22 2024 8:21P Dictated by : MABLE POLANCO MD This examination was interpreted and the report reviewed and electronically signed by: MABLE POLANCO MD on Sep 22 2024 8:22PM EST [id number] Normal [facility] CNOVon 09-20-2024 CNOV Office Visit (CATHMN ) JUSTINE BERGERON ([id number]) 1970 F Date Time Provider Department 09/20/24 11:00 AM JIMMY QUINTANA CATHMATT During your visit today, we recorded the following information about you: Pulse Respiration Blood pressure Weight 64/minute 14/minute 118/71 66.7 kg Height 1.524 m Jimmy Quintana MD 09/20/2024 11:15 AM Signed [facility] Thor[facility] Lily Andrzej and Iva Matthew Department of Cardiovascular Medicine SECTION OF INTERVENTIONAL CARDIOLOGY OUTPATIENT VISIT DATE September 20, 2024 OUTPATIENT VISIT TYPE ESTABLISHED PRIMARY CARE PHYSICIAN: Domonique Guzman [address] [place] [address] REFERRING PHYSICIAN: Jimmy Quintana [address] [facility] [address] CHIEF COMPLAINT: No chief complaint on file. [...] Mother 67 Cancer Father Heart Father 64 SD coronary stent Heart Brother 37 SD 3 stents Hypertension Brother other (Hemophelia) Brother [...] Doesn't exercise d/t fear of palp and SD Whooshing in left neck ECG normal x mild PRWP 06/22 labs Hb 12.3 Cr 0.8 LDL 85 asa top (more content not included)... Normal [facility] ECG COMPLETEon 09-20-2024 ECG COMPLETE Ventricular Rate : 6 4 BPM Atrial Rate : 64 BPM P-R Interval : 134 ms QRS Duration : 82 ms Q-T Interval : 388 ms QTC Calculation(Bazett) : 400 ms Calculated P Mundelein : 58 degrees Calculated R Mundelein : 32 degrees Calculated T Mundelein : 44 degrees NORMAL SINUS RHYTHM NORMAL ECG Confirmed by MD LLAMAS TAMANNA ([id number]) on 10/02/2024 12:30:37 PM NAME : JUSTINE BERGERON PID : [id number] : 1970 Gender : Female Race : ORD : [id number] Procedure Date : Sep 20 2024 10:05:43 Edit Date : Oct 02 2024 12:30:40 Diagnosis: NORMAL SINUS RHYTHM NORMAL ECG Confirmed by MD LLAMAS TAMANNA ([id number]) on 10/02/2024 12:30:37 PM Test Reason : Location : 314 : [facility] J1-4 Overread By : MD LLAMAS TAMANNA Edited By : MD LLAMAS TAMANNA Referred By : JIMMY QUINTANA Acquired by : MATY JOINER [facility] CNOVon 09-15-2024 CNOV Office Visit (STFLD) JUSTINE BERGERON ([id number]) 1970 F Date Time Provider Department 09/15/24 [...] Past Histories independently gathered by the clinical operations support representative and the remaining scribed note accurately describes [...] Encounter Status:Closed by NOHEMY HILL [facility]15/[facility] NEOJUSTINE ([id number]) 1970 F Date Time Provider Department 09/05/24 JIMMY QUINTANA During your visit today, we recorded the following information about you: Luis Ricksoine 09/05/2024 3:13 PM Signed Pt called to have lab orders submitted for her upcoming appt on 09/19/24 Pt will have labs completed at [facility] once she sees the orders. Allergies As [...] Encounter Status:Closed by REYNALDO WHATLEY on 09/05/24 [facility] Giovanna 08-24-2024 CNPN Telephone (CATHMN) JUSTINE BERGERON ([id number]) 1970 F Date Time Provider Department 08/24/24 [...] Encounter Status:Closed by LUIS RICKS on 08/24/24 [facility] CNOVon 06-06-2024 CNOV Office Visit (DERMMN ) JUSTINE BERGERON ([id number]) 1970 F Date Time Provider Department 06/06/24 [...] Additional information can be obtained at: [email or web address] 2. In many cases, skin cancer [...] Past Histories independently gathered by the clinical operations support representative and the remaining scribed note accurately describes my personal service to the patient. Carlton Pabon MD June 06, 2024 Medical Decision Making: Problems: Low: 2+ self-limited or minor problems and Stable chronic ill (more content not included)... Normal [facility] 25(OH)[facility] 25-hydroxyvitamin D3 [Mass/Vol] 42.2 ng/mL Normal 31.0-80.0 [facility] Comment on above: Order Comment: Speci men Type: BLOOD SPECIMENOrdering Facility: [facility] Address: [address] [place] [address] Result Comment: Clas sification of 25 OH Vitamin D status: Deficiency/Insufficiency: < or = 30 ng/ml. Sufficiency/Optimal Levels: 31-80 ng/mL Toxicity: > 100 ng/mL. Test performed by chemiluminescent immunoassay. Performed By: #### 1 989-3 ####[facility] LABCLIA [id number] [place] [address] [place] CBC W Auto Differential pane l (Bld)on 06-01-2024 Basophils (Bld) [#/Vol] 0.04 10*3/uL Normal <0.11 [facility] Comment on above: Order Comment: Speci men Type: BLOOD SPECIMENOrdering Facility: [facility] Address: [address] [place] [address] Performed By: #### 5 7021-8 ####[facility] LABCLIA [id number] [place] [address] [place] Basophils/100 WBC (Bld) 1.0 % Normal [facility] Comment on above: Order Comment: Speci men Type: BLOOD SPECIMENOrdering Facility: [facility] Address: [address] [place] [address] Performed By: #### 5 7021-8 ####[facility] LABCLIA [id number] [place] [address] [place] Differential cell count method Nom (Bld) Auto Normal [facility] Comment on above: Order Comment: Speci men Type: BLOOD SPECIMENOrdering Facility: [facility] Address: [address] [place] [address] Performed By: #### 5 7021-8 ####[facility] LABCLIA [id number] [place] [address] [place] Eosinophils (Bld) [#/Vol] 0.13 10*3/uL Normal <0.46 [facility] Comment on above: Order Comment: Speci men Type: BLOOD SPECIMENOrdering Facility: [facility] Address: [address] [place] [address] Performed By: #### 5 7021-8 ####[facility] LABCLIA [id number] [place] [address] [place] Eosinophils/100 WBC (Bld) 3.1 % Normal [facility] Comment on above: Order Comment: Speci men Type: BLOOD SPECIMENOrdering Facility: [facility] Address: [address] [place] [address] Performed By: #### 5 7021-8 ####[facility] LABCLIA [id number] [place] [address] [place] Erythrocyte distribution width (RBC) [Ratio] 11.8 % Normal 11.5-15.0 [facility] Comment on above: Order Comment: Speci men Type: BLOOD SPECIMENOrdering Facility: [facility] Address: [address] [place] [address] Performed By: #### 5 7021-8 ####[facility] LABCLIA [id number] [place] [address] [place] Hematocrit (Bld) [Volume fraction] 37.2 % Normal 36.0-46.0 [facility] Comment on above: Order Comment: Speci men Type: BLOOD SPECIMENOrdering Facility: [facility] Address: [address] [place] [address] Performed By: #### 5 7021-8 ####[facility] LABCLIA [id number] [place] [address] [place] Hemoglobin (Bld) [Mass/Vol] 12.3 g/dL Normal 11.5-15.5 [facility] Comment on above: Order Comment: Speci men Type: BLOOD SPECIMENOrdering Facility: [facility] Address: [address] [place] [address] Performed By: #### 5 7021-8 ####[facility] LABCLIA [id number] [place] [address] [place] Immature granulocytes (Bld) [#/Vol] 10*3/uL Normal <0.10 [facility] Comment on above: Order Comment: Speci men Type: BLOOD SPECIMENOrdering Facility: [facility] Address: [address] [place] [address] Performed By: #### 5 7021-8 ####[facility] LABCLIA [id number] [place] [address] [place] Immature granulocytes/100 WBC (Bld) 0.2 % Normal [facility] Comment on above: Order Comment: Speci men Type: BLOOD SPECIMENOrdering Facility: [facility] Address: [address] [place] [address] Performed By: #### 5 7021-8 ####[facility] LABCLIA [id number] [place] [address] [place] Lymphocytes (Bld) [#/Vol] 1.90 10*3/uL Normal 1.00-4.00 [facility] Comment on above: Order Comment: Speci men Type: BLOOD SPECIMENOrdering Facility: [facility] Address: [address] [place] [address] Performed By: #### 5 7021-8 ####[facility] LABCLIA [id number] [place] [address] [place] Lymphocytes/100 WBC (Bld) 45.5 % Normal [facility] Comment on above: Order Comment: Speci men Type: BLOOD SPECIMENOrdering Facility: [facility] Address: [address] [place] [address] Performed By: #### 5 7021-8 ####[facility] LABCLIA [id number] [place] [address] [place] MCH (RBC) [Entitic mass] 31.1 pg Normal 26.0-34.0 [facility] Comment on above: Order Comment: Speci men Type: BLOOD SPECIMENOrdering Facility: [facility] Address: [address] [place] [address] Performed By: #### 5 7021-8 ####[facility] LABCLIA [id number] [place] [address] [place] MCHC (RBC) [Mass/Vol] 33.1 g/dL Normal 30.5-36.0 [facility] Comment on above: Order Comment: Speci men Type: BLOOD SPECIMENOrdering Facility: [facility] Address: [address] [place] [address] Performed By: #### 5 7021-8 ####[facility] LABCLIA [id number] [place] [address] [place] MCV (RBC) [Entitic vol] 94.2 fL Normal 80.0-100.0 [facility] Comment on above: Order Comment: Speci men Type: BLOOD SPECIMENOrdering Facility: [facility] Address: [address] [place] [address] Performed By: #### 5 7021-8 ####[facility] LABCLIA [id number] [place] [address] [place] Monocytes (Bld) [#/Vol] 0.47 10*3/uL Normal <0.87 [facility] Comment on above: Order Comment: Speci men Type: BLOOD SPECIMENOrdering Facility: [facility] Address: [address] [place] [address] Performed By: #### 5 7021-8 ####[facility] LABCLIA [id number] [place] [address] [place] Monocytes/100 WBC (Bld) 11.2 % Normal [facility] Comment on above: Order Comment: Speci men Type: BLOOD SPECIMENOrdering Facility: [facility] Address: [address] [place] [address] Performed By: #### 5 7021-8 ####[facility] LABCLIA [id number] [place] [address] [place] Neutrophils (Bld) [#/Vol] 1.63 10*3/uL Normal 1.45-7.50 [facility] Comment on above: Order Comment: Speci men Type: BLOOD SPECIMENOrdering Facility: [facility] Address: [address] [place] [address] Performed By: #### 5 7021-8 ####[facility] LABCLIA [id number] [place] [address] [place] Neutrophils/100 WBC (Bld) 39.0 % Normal [facility] Comment on above: Order Comment: Speci men Type: BLOOD SPECIMENOrdering Facility: [facility] Address: [address] [place] [address] Performed By: #### 5 7021-8 ####[facility] LABCLIA [id number] [place] [address] [place] Nucleated RBC (Bld) [#/Vol] 10*3/uL Normal <0.01 [facility] Comment on above: Order Comment: Speci men Type: BLOOD SPECIMENOrdering Facility: [facility] Address: [address] [place] [address] Performed By: #### 5 7021-8 ####[facility] LABCLIA [id number] [place] [address] [place] Nucleated RBC/100 WBC (Bld) [Ratio] 0.0 /100 WBC Normal [facility] Comment on above: Order Comment: Speci men Type: BLOOD SPECIMENOrdering Facility: [facility] Address: [address] [place] [address] Performed By: #### 5 7021-8 ####[facility] LABCLIA [id number] [place] [address] [place] Platelet mean volume (Bld) [Entitic vol] 10.6 fL Normal 9.0-12.7 [facility] Comment on above: Order Comment: Speci men Type: BLOOD SPECIMENOrdering Facility: [facility] Address: [address] [place] [address] Performed By: #### 5 7021-8 ####[facility] LABCLIA [id number] [address] [address] [place] Platelets (Bld) [#/Vol] 245 10*3/uL Normal 150-400 [facility] Comment on above: Order Comment: Speci men Type: BLOOD SPECIMENOrdering Facility: [facility] Address: [address] [place] [address] Performed By: #### 5 7021-8 ####[facility] LABCLIA [id number] [place] [address] [place] RBC (Bld) [#/Vol] 3.95 10*6/uL Normal 3.90-5.[address] [facility] Comment on above: Order Comment: Speci men Type: BLOOD SPECIMENOrdering Facility: [facility] Address: [address] [place] [address] Performed By: #### 5 7021-8 ####[facility] LABCLIA [id number] [place] [address] [place] WBC (Bld) [#/Vol] 4.18 10*3/uL Normal 3.70-11.[address] [facility] Comment on above: Order Comment: Speci men Type: BLOOD SPECIMENOrdering Facility: [facility] Address: [address] [place] [address] Performed By: #### 5 7021-8 ####[facility] LABCLIA [id number] [place] [address] [place] Comprehensive metabolic 2000 panelon 06-01-2024 Albumin [Mass/Vol] 4.0 g/dL Normal 3.9-4.9 [facility] Comment on above: Order Comment: Speci men Type: BLOOD SPECIMENOrdering Facility: [facility] Address: [address] [place] [address] Performed By: #### 3 016-3, 69791-5, 50428-0, ####[facility] LABCLIA [id number] [place] [address] [place] ALP [Catalytic activity/Vol] 42 U/L Normal 34-123 [facility] Comment on above: Order Comment: Speci men Type: BLOOD SPECIMENOrdering Facility: [facility] Address: [address] [place] [address] Performed By: #### 3 016-3, 26571-7, 74209-7, ####[facility] LABCLIA [id number] [place] [address] [place] ALT [Catalytic activity/Vol] 18 U/L Normal 7-38 [facility] Comment on above: Order Comment: Speci men Type: BLOOD SPECIMENOrdering Facility: [facility] Address: [address] [place] [address] Performed By: #### 3 016-3, 24950-6, 04987-7, ####[facility] LABCLIA [id number] [place] [address] [place] Anion gap [Moles/Vol] 11 mmol/L Normal 8-15 [facility] Comment on above: Order Comment: Speci men Type: BLOOD SPECIMENOrdering Facility: [facility] Address: [address] [place] [address] Performed By: #### 3 016-3, 32858-4, 53224-9, 26942-2 ####[facility] LABCLIA [id number] [place] [address] [place] AST [Catalytic activity/Vol] 36 U/L High 13-35 [facility] Comment on above: Order Comment: Speci men Type: BLOOD SPECIMENOrdering Facility: [facility] Address: [address] [place], [place] [address] Performed By: #### 3 016-3, 45457-6, 57118-9, 10529-4 ####[facility] LABCLIA [id number] [address] [address] [place] Bilirubin [Mass/Vol] 0.6 mg/dL Normal 0.2-1.3 [facility] Comment on above: Order Comment: Speci men Type: BLOOD SPECIMENOrdering Facility: [facility] Address: [address] [place] [address] Performed By: #### 3 016-3, 96697-0, 48693-3, 09043-0 ####[facility] LABCLIA [id number] [place] [address] [place] Calcium [Mass/Vol] 9.5 mg/dL Normal 8.5-10.2 [facility] Comment on above: Order Comment: Speci men Type: BLOOD SPECIMENOrdering Facility: [facility] Address: [address] [place] [address] Performed By: #### 3 016-3, 20508-3, 72555-8, 20264-1 ####[facility] LABCLIA [id number] [place] [address] [place] Chloride [Moles/Vol] 104 mmol/L Normal 98-107 [facility] Comment on above: Order Comment: Speci men Type: BLOOD SPECIMENOrdering Facility: [facility] Address: [address] [place], [place] [address] Performed By: #### 3 016-3, 30282-9, 00172-1, 92712-7 ####[facility] LABCLIA [id number] [place] [address] [place] CO2 [Moles/Vol] 27 mmol/L Normal 22-30 [facility] Comment on above: Order Comment: Speci men Type: BLOOD SPECIMENOrdering Facility: [facility] Address: [address] [place] [address] Performed By: #### 3 016-3, 11488-8, 77877-9, 20964-5 ####[facility] LABIA [id number] [place] [address] [place] Creatinine [Mass/Vol] 0.75 mg/dL Normal 0.58-0.96 [facility] Comment on above: Order Comment: Specannie men Type: BLOOD SPECIMENOrdering Facility: [facility] Address: [address] [place] [address] Performed By: #### 3 016-3, 89236-7, 71542-3, ####[facility] [id number] [address] [place] Creatinine and Glomerular filtration rate.predicted panel (S/P/Bld) 95 mL/min/1.73m??? Normal >=60 [facility] Comment on above: Order Comment: Christian men Type: BLOOD SPECIMENOrdering Facility: [facility] Address: [address] [place] [address] Result Comment: Radha mated Glomerular Filtration Rate [...] actual GFR. Performed By: #### 3 016-3, 70701-9, 15892-4, ####[facility] LABR[facility] [id number] [place] [address] [place] Glucose [Mass/Vol] 92 mg/dL Normal 74-99 [facility] Comment on above: Order Comment: Christian men Type: BLOOD SPECIMENOrdering Facility: [facility] Address: [address] [place] [address] Result Comment: The [place] Diabetes Association (ADA) provides guidance for cutoff [...] Standards of Medical Care in Diabetes 2016, [place] [employer]. Diabetes Care. 2016.39(Suppl 1). Performed By: #### 3 016-3, 41954-4, 91772-7, ####[facility] LABIA [id number] [place] [address] [place] Potassium [Moles/Vol] 4.4 mmol/L Normal 3.7-5.1 [facility] Comment on above: Order Comment: Speci men Type: BLOOD SPECIMENOrdering Facility: [facility] Address: [address] [place] [address] Performed By: #### 3 016-3, 50150-7, 11144-2, ####[facility] LABIA [id number] [place] [address] [place] Protein [Mass/Vol] 6.5 g/dL Normal 6.3-8.0 [facility] Comment on above: Order Comment: Speci men Type: BLOOD SPECIMENOrdering Facility: [facility] Address: [address] [place] [address] Performed By: #### 3 016-3, 11492-5, 11633-4, ####[facility] LABIA [id number] [place] [address] [place] Sodium [Moles/Vol] 142 mmol/L Normal 136-144 [facility] Comment on above: Order Comment: Speci men Type: BLOOD SPECIMENOrdering Facility: [facility] Address: [address] [place] [id number] Performed By: #### 3 016-3, 36675-9, 70210-8, ####[facility] LABCLIA [id number] [place] [address] [place] Urea nitrogen [Mass/Vol] 17 mg/dL Normal 7-21 [facility] Comment on above: Order Comment: Speci men Type: BLOOD SPECIMENOrdering Facility: [facility] Address: [address] [place] [address] Performed By: #### 3 016-3, 52690-7, 85562-8, ####[facility] LABCLIA [id number] [place] [address] [place] Lipid 1996 panelon 4 Cholesterol [Mass/Vol] 154 mg/dL Normal <200 [facility] Comment on above: Order Comment: Speci men Type: BLOOD SPECIMENOrdering Facility: [facility] Address: [address] [place] [address] Result Comment: <200 mg/dL, Desirable 200-239 mg/dL, Borderline high >239 mg/dL, High Performed By: #### 3 016-3, 43927-0, 23907-6, ####[facility] LABCLIA [id number] [place] [address] [place] Cholesterol in HDL [Mass/Vol] 60 mg/dL Normal >39 [facility] Comment on above: Order Comment: Speci men Type: BLOOD SPECIMENOrdering Facility: [facility] Address: [address] [place] [address] Result Comment: 40-5 9 mg/dL, Acceptable >59 mg/dL, High: Negative risk factor for coronary heart disease <40 mg/dL, Low: Positive risk factor for coronary heart disease Performed By: #### 3 016-3, 97362-6, 83081-7, ####[facility] LABCLIA [id number] [place] [address] [place] Cholesterol in LDL [Mass/Vol] 85 mg/dL Normal <100 [facility] Comment on above: Order Comment: Christian men Type: BLOOD SPECIMENOrdering Facility: [facility] Address: [address] [place] [address] Result Comment: <100 mg/dL, Optimal 100-129 mg/dL, Near optimal/above optimal 130-159 mg/dL, Borderline high 160-189 mg/dL, High >189 mg/dL, Very high Secondary prevention optimal LDL Cholesterol levels are recommended to be < 70 mg/dL Performed By: #### 3 016-3, 28784-3, 99697-0, 44214-9 ####[facility] LABCLIA [id number] [address] [place] Cholesterol in LDL/Cholesterol in HDL [Mass ratio] 1.42 {ratio} Normal <2.54 [facility] Comment on above: Order Comment: Christian sears Type: BLOOD SPECIMENOrdering Facility: [facility] Address: [address] [place] [address] Result Comment: Refe rence: 1. National Cholesterol Education Program ATP III Guideline At-A-Glance Quick Desk Reference: National Heart, Lung, and Blood Lily. National Institutes of Health. 2001: NIH Publication No. 01-3305. 2. An International Atherosclerosis Society position paper: global recommendations for the management of dyslipidemia: executive summary, Atherosclerosis. 2014: 232(2):410-413. Performed By: #### 3 016-3, 89207-0, 91905-9, 52854-3 ####[facility] LABCLIA [id number] [place] [address] [place] Cholesterol in VLDL [Mass/Vol] 9 mg/dL Normal <30 [facility] Comment on above: Order Comment: Christian men Type: BLOOD SPECIMENOrdering Facility: [facility] Address: [address] [place] [address] Performed By: #### 3 016-3, 04735-0, 97928-0, 32949-8 ####[facility] LABCLIA [id number] [place] [address] [place] Cholesterol non HDL [Mass/Vol] 94 mg/dL Normal <130 [facility] Comment on above: Order Comment: Speci men Type: BLOOD SPECIMENOrdering Facility: [facility] Address: [address] [place] [address] Result Comment: <130 mg/dL, Optimal 130-159 mg/dL, Near optimal/above optimal 160-189 mg/dL, Borderline high 190-219 mg/dL, High >219 mg/dL, Very high Secondary prevention optimal non HDL Cholesterol levels are recommended to be <100 mg/dL Performed By: #### 3 016-3, 51432-4, 57952-2, ####[facility] LABCLIA [id number] [place] [address] [place] Cholesterol.total/Chol esterol in HDL [Mass ratio] 2.57 {ratio} Normal <5.10 [facility] Comment on above: Order Comment: Speci men Type: BLOOD SPECIMENOrdering Facility: [facility] Address: [address] [place] [address] Performed By: #### 3 016-3, 16474-9, 63297-5, ####[facility] LABCLIA [id number] [place] [address] [place] FASTING TIME 12 hrs Normal [facility] Comment on above: Order Comment: Speci men Type: BLOOD SPECIMENOrdering Facility: [facility] Address: [address] [place] [address] Performed By: #### 3 016-3, 44705-0, 89547-3, ####[facility] LABCLIA [id number] [place] [address] [place] Triglyceride [Mass/Vol] 47 mg/dL Normal <150 [facility] Comment on above: Order Comment: Speci men Type: BLOOD SPECIMENOrdering Facility: [facility] Address: [facility] [place] [address] Result Comment: <150 mg/dL, Normal 150-199 mg/dL, Borderline high 200-499 mg/dL, High >499 mg/dL, Very high Performed By: #### 3 016-3, 68655-9, 11706-9, ####[facility] LABCLIA [id number] [place] [address] [place] Magnesium SerPl-mCncon 06-01 Magnesium [Mass/Vol] 2.0 mg/dL Normal 1.7-2.3 [facility] Comment on above: Order Comment: Speci men Type: BLOOD SPECIMENOrdering Facility: [facility] Address: [address] [place] [address] Performed By: #### 3 016-3, 31483-0, 22723-4, ####[facility] LABCLIA [id number] [place] [address] [place] TSH SerPl-aCncon 06-01-2024 TSH Qn 1.310 m[IU]/L Normal 0.270-4.200 [facility] Comment on above: Order Comment: Speci men Type: BLOOD SPECIMENOrdering Facility: [facility] Address: [address] [place] [address] Performed By: #### 3 016-3, 12702-1, 62271-5, ####[facility] LABCLIA [id number] [place] [address] [place] Vit B12 SerPl-mCncon 024 Cobalamin (Vitamin B12) [Mass/Vol] 352 pg/mL Normal 232-1245 [facility] Comment on above: Order Comment: Speci men Type: BLOOD SPECIMENOrdering Facility: [facility] Address: [address] [place] [address] Performed By: #### 2 132-9 ####[facility] LABCLIA [id number] [address] [address] [place] CNOVon 05-31-2024 CNOV Office Visit (INTMWS ) JUSTINE BERGERON ([id number]) 1970 F Date Time Provider Department 05/31/24 2:40 PM SYDNEE SUMNER INTMWS During your visit today, we recorded the following information about you: Pulse Blood pressure Weight Height 70/minute 115/78 66.8 kg 1.499 m Last Period 02/07/24 Sydnee Sumner APRN.TRACK REPAIR LABORER 05/31/2024 3:17 PM Signed CHIEF COMPLAINT: Patient [...] in her back on occasion. 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 Neck: (more content not included)... 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 Financial Processing Clerk: LESLIE Transcribe Date/Time: Oct 11 2023 5:28P Dictated by : MABLE POLANCO MD This examination was interpreted and the report reviewed and electronically signed by: MABLE POLANCO MD on Oct 11 2023 5:29PM [facility] DIVISION OF RADIOLOGY * * *Final Report* [...] Thoracic spine degenerative changes as described above. Financial Processing Clerk: PSCB Transcribe Date/Time: Oct 11 2023 5:28P Dictated by : MABLE POLANCO MD This examination was interpreted and the report reviewed and electronically signed by: MABLE POLANCO MD on Oct 11 2023 5:29PM EST [facility] Radiology Study observation (narrative) [facility] XR Thoracic spine AP and Lat eralOrdered By: Ccf Provider on 10-11-2023 [facility] Thin prep Papanicolaou smear with manual screeningOrdered By: Mahsa Fischer on 09-11-2022 Genital Culture Streptococcus agalactiae (B) [facility] Culture, urineOrdered By: Richard Fischer on 09-10-2022 Bacteria identified Cx Nom (U) Culture exhibits no growth. [facility] Gram stain for investigation of transfusion reactionOrdered By: Mahsa Fischer on 09-09-2022 Microscopic observation Gram stain Nom (Unsp spec) [facility] Laboratory - Chemistry and C hemistry - challengeon 09-08-2022 Bilirubin Ql (U) Negative [facility] Glucose Ql (U) Negative [facility] Ketones Ql (U) Negative [facility] pH (U) 5.0 [pH] [facility] Specific gravity (U) [Rel density] 1.030 [facility] Urobilinogen (U) [Mass/Vol] Negative [facility] Laboratory - Hematology and Cell countson 09-08-2022 Hemoglobin Ql (U) Moderate [facility] Laboratory - Specimen inform ationon 09-08-2022 Clarity (U) Clear [facility] Color (U) Yellow [facility] Laboratory - Urinalysison Nitrite Ql (U) Negative [facility] Protein Ql (U) Negative [facility] No Panel Informationon 09-08 Urine Leukocytes Negatve [facility] Urine Non-Hemolyzed Blood [facility] C3 COMPLEMENT [facility] 01-30-20 Complement C3 [Mass/Vol] 121 mg/dL 86 - 166 mg/dL [facility] C4 COMPLEMENT [facility] 01-30-20 Complement C4 [Mass/Vol] 29 mg/dL 13 - 46 mg/dL [facility] CBC W Auto Differential pane l (Bld)on 01-29-2022 Abs Immature Gran <0.03 <0.10 k/uL [facility] Basophils (Bld) [#/Vol] 0.06 10*3/uL <0.11 k/uL [facility] Basophils/100 WBC (Bld) 0.9 % [facility] Differential cell count method Nom (Bld) Auto [facility] Eosinophils (Bld) [#/Vol] 0.11 10*3/uL <0.46 k/uL [facility] Eosinophils/100 WBC (Bld) 1.6 % [facility] Erythrocyte distribution width (RBC) [Ratio] 11.9 % 11.5 - 15.0 % [facility] Hematocrit (Bld) [Volume fraction] 37.7 % 36.0 - 46.0 % [facility] Hemoglobin (Bld) [Mass/Vol] 12.3 g/dL 11.5 - 15.5 g/dL [facility] Immature Gran % 0.3 % [facility] Lymphocytes (Bld) [#/Vol] 1.80 10*3/uL 1.00 - 4.00 k/uL [facility] Lymphocytes/100 WBC (Bld) 26.7 % [facility] MCH (RBC) [Entitic mass] 30.7 pg 26.0 - 34.0 pg [facility] MCHC (RBC) [Mass/Vol] 32.6 g/dL 30.5 - 36.0 g/dL [facility] MCV (RBC) [Entitic vol] 94.0 fL 80.0 - 100.0 fL [facility] Monocytes (Bld) [#/Vol] 0.67 10*3/uL <0.87 k/uL [facility] Monocytes/100 WBC (Bld) 9.9 % [facility] Neutrophils (Bld) [#/Vol] 4.09 10*3/uL 1.45 - 7.50 k/uL [facility] Neutrophils/100 WBC (Bld) 60.6 % [facility] Nucleated RBC (Bld) [#/Vol] 10*3/uL <0.01 k/uL [facility] Nucleated RBC/100 WBC (Bld) [Ratio] 0.0 /100 WBC [facility] Platelet mean volume (Bld) [Entitic vol] 10.3 fL 9.0 - 12.7 fL [facility] Platelets (Bld) [#/Vol] 251 10*3/uL 150 - 400 k/uL [facility] RBC (Bld) [#/Vol] 4.01 10*6/uL 3.90 - 5.2 0 m/uL [facility] WBC (Bld) [#/Vol] 6.75 10*3/uL 3.70 - 11. 00 k/uL [facility] MAGNESIUM BLDon 01-29-2022 Magnesium [Mass/Vol] 1.9 mg/dL 1.7 - 2 .3 mg/dL [facility] No Panel Informationon 01-29 [facility] VITAMIN D 25 HYDROXYon 01-29 25-hydroxyvitamin D3 [Mass/Vol] 47.9 ng/mL 31.0 - 80.0 ng/mL [facility] CTA CORONARY W IVCONon 01-14 [facility] Basophil percentageon 2021 Chloride [Moles/Vol] 101 mmol/L 98-107 [facility] Work Phone: Glucose [Mass/Vol] 109 mg/dL 74-106 [facility] Work Phone: Comment on above: Fasting Glucose resu lt from 100 to 125 mg/dL suggests IMPAIRED HOMEOSTASIS per A.D.A. criteria. Potassium [Moles/Vol] 4.3 mmol/L 3.5-5.1 [facility] Work Phone: Sodium [Moles/Vol] 137 mmol/L 136-145 [facility] Work Phone: WBC (Bld) [#/Vol] 8.2 10*3/uL 4.4-11.0 [facility] Work Phone: Blood erythrocytes count (nu mber/volume)on 01-05-2022 RBC (Bld) [#/Vol] 4.33 10*6/uL 4.2-5.4 [facility]: Blood hemoglobin measurement (mass/volume)on 01-05-2022 Hemoglobin (Bld) [Mass/Vol] 13.6 g/dL 12.0-15.0 [facility] Work Phone: Blood platelet mean volumeon 01-05-2022 Platelet mean volume (Bld) [Entitic vol] 9.8 fL 6.2-12.0 [facility] Work Phone: Determination of erythrocyte mean corpuscular volume (MCV)on 01-05-2022 MCV (RBC) [Entitic vol] 91.7 fL 81-99 [facility] Work Phone: Hematocrit Auto (Bld) [Volum e fraction]on 01-05-2022 Hematocrit (Bld) [Volume fraction] 39.7 % 37-47 [facility] Work Phone: Laboratory - Chemistry and C hemistry - challengeon 01-05-2022 CO2 [Moles/Vol] 29.0 mmol/L 21.0-32.0 [facility] Work Phone: Urea nitrogen/Creatinine [Mass ratio] 21.3 mg/mg 10-20 [facility] Work Phone: Laboratory - Hematology and Cell countson 01-05-2022 Erythrocyte distribution width (RBC) [Entitic vol] 38.2 fL 35.1-43.9 [facility] Work Phone: Erythrocyte distribution width (RBC) [Ratio] 11.2 % 11.6-14.6 [facility] Work Phone: MCH (RBC) [Entitic mass] 31.4 pg 27.0-32.0 [facility] Work Phone: MCHC Auto (RBC) [Mass/Vol]on 05-09-2022 MCHC (RBC) [Mass/Vol] 34.3 g/dL 32-36 [facility] Work Phone: No Panel Informationon 01-05 Estimated Creatinine Clearance Calc 63.74 ml/min [facility] Work Phone: Estimated GFR (MDRD) Amer 104 mL/min >60 [facility] Work Phone: Comment on above: GFR Calc Estimated GFR (MDRD) Non-Af Amer 86 mL/min >60 [facility] Work Phone: Comment on above: Non- GFR Calc Platelets bldon 01-05-2022 Platelets (Bld) [#/Vol] 320 10*3/uL 150-450 [facility] Work Phone: Serum or plasma calcium ronni urement (mass/volume)on 01-05-2022 Calcium [Mass/Vol] 9.9 mg/dL 8.5-10.1 [facility] Work Phone: Serum or plasma creatinine m easurement (mass/volume)on 01-05-2022 Creatinine [Mass/Vol] 0.75 mg/dL 0.55-1.02 [facility] Work Phone: Comment on above: The validity of the calculated GFR & GFRAA in patients over 70 years has not been determined. Clinical correlation is essential. Serum or plasma urea nitroge n measurement (mass/volume)on 01-05-2022 Urea nitrogen [Mass/Vol] 16 mg/dL 7-18 [facility] Work Phone: Thin prep Papanicolaou smear with manual screeningon 01-05-2022 Thin prep Papanicolaou smear with manual screening 7 5-15 [facility] Work Phone: Absolute lymphocyte counton 12-19-2021 Lymphocytes Auto (Unsp spec) [#/Vol] 2.71 10*3/uL 0.83-4.51 [facility] Work Phone: Basophil percentageon 2021 Chloride [Moles/Vol] 104 mmol/L 98-[address] [facility] Work Phone: Glucose [Mass/Vol] 97 mg/dL 74-106 [facility] Work Phone: [phone] Potassium [Moles/Vol] 4.0 mmol/L 3.5-5.1 [address] [facility] Work Phone: [phone] Sodium [Moles/Vol] 140 mmol/L 136-145 [facility] Work Phone: [phone] Basophils/100 WBC (Bld) 0.8 % 0-1 [facility] Work Phone: [phone] Eosinophils/100 WBC (Bld) 1.1 % 0-5 [facility] Work Phone: [phone] Neutrophils (Bld) [#/Vol] 2.7 10*3/uL 2.0-7.7 [facility] Work Phone: Neutrophils/100 WBC (Bld) 44.8 % 47-70 [facility] Work Phone: [phone] WBC (Bld) [#/Vol] 6.1 10*3/uL 4.4-11.0 [facility] Work Phone: Blood erythrocytes count (nu mber/volume)on 12-19-2021 RBC (Bld) [#/Vol] 4.28 10*6/uL 4.2-5.4 [facility] Work Phone: Blood hemoglobin measurement (mass/volume)on 12-19-2021 Hemoglobin (Bld) [Mass/Vol] 13.6 g/dL 12.0-15.0 [facility] Work Phone: [phone] Blood lymphocytes/100 leukoc yteson 12-19-2021 Lymphocytes/100 WBC (Bld) 44.3 % 19-41 [facility] Work Phone: [phone] Blood monocytes/100 leukocyt eson 12-19-2021 Monocytes/100 WBC (Bld) 8.8 % 0-10 [facility] Work Phone: Blood platelet mean volumeon 12-19-2021 Platelet mean volume (Bld) [Entitic vol] 10.8 fL 6.2-12.0 [facility] Work Phone: Determination of erythrocyte mean corpuscular volume (MCV)on 12-19-2021 MCV (RBC) [Entitic vol] 93.0 fL 81-99 [facility] Work Phone: Hematocrit Auto (Bld) [Volum e fraction]on 12-19-2021 Hematocrit (Bld) [Volume fraction] 39.8 % 37-47 [facility] Work Phone: Laboratory - Chemistry and C hemistry - challengeon 12-19-2021 CO2 [Moles/Vol] 30.0 mmol/L 21.0-32.0 [facility] Work Phone: Urea nitrogen/Creatinine [Mass ratio] 21.0 mg/mg 10-20 [facility] Work Phone: Laboratory - Hematology and Cell countson 12-19-2021 Erythrocyte distribution width (RBC) [Entitic vol] 40.3 fL 35.1-43.9 [facility] Work Phone: Erythrocyte distribution width (RBC) [Ratio] 13.9 % 11.6-14.6 [facility] Work Phone: Immature granulocytes/100 WBC (Bld) 0.200 % 0.0-0.9 [facility] Work Phone: Comment on above: IG% - Immature Granu locytes (promyelocytes, myelocytes and metamyelocytes) > 1% indicates that a LEFT SHIFT is Present. MCH (RBC) [Entitic mass] 31.8 pg 27.0-32.0 [facility] Work Phone: Nucleated RBC/100 WBC (Bld) [Ratio] 0 % 0-5 [facility] Work Phone: MCHC Auto (RBC) [Mass/Vol]on 12-19-2021 MCHC (RBC) [Mass/Vol] 34.2 g/dL 32-36 [facility] Work Phone: No Panel Informationon 12-19 Estimated Creatinine Clearance Calc 67.33 ml/min [facility] Work Phone: Estimated GFR (MDRD) Amer 111 mL/min >60 [facility] Work Phone: Comment on above: GFR Calc Estimated GFR (MDRD) Non-Af Amer 92 mL/min >60 [facility] Work Phone: Comment on above: Non- GFR Calc Troponin I High Sensitivity 11 pg/mL 3.0-54.0 [facility] Work Phone: Comment on above: Please Note: New Juanita t Units and Gender Specific Reference Ranges. For more information see Policy Stat Procedure [place] High Sensitivity Troponin (TNIH) and attachments. Platelets bldon 12-19-2021 Platelets (Bld) [#/Vol] 272 10*3/uL 150-450 [facility] Work Phone: Serum or plasma calcium ronni urement (mass/volume)on 12-19-2021 Calcium [Mass/Vol] 9.2 mg/dL 8.5-10.1 [facility] Work Phone: Serum or plasma creatinine m easurement (mass/volume)on 12-19-2021 Creatinine [Mass/Vol] 0.71 mg/dL 0.55-1.02 [facility] Work Phone: Comment on above: The validity of the calculated GFR & GFRAA in patients over 70 years has not been determined. Clinical correlation is essential. Serum or plasma urea nitroge n measurement (mass/volume)on 12-19-2021 Urea nitrogen [Mass/Vol] 15 mg/dL 7-18 [facility] Work Phone: Thin prep Papanicolaou smear with manual screeningon 12-19-2021 Thin prep Papanicolaou smear with manual screening 6 5-15 [facility] Work Phone: Absolute lymphocyte counton 11-30-2021 Lymphocytes Auto (Unsp spec) [#/Vol] 2.64 10*3/uL 0.83-4.51 [facility] Work Phone: Basophil percentageon 2021 Basophils/100 WBC (Bld) 0.9 % 0-1 [facility] Work Phone: Chloride [Moles/Vol] 105 mmol/L 98-107 [facility] Work Phone: Eosinophils/100 WBC (Bld) 1.6 % 0-5 [facility] Work Phone: Glucose [Mass/Vol] 110 mg/dL 74-106 [facility] Work Phone: Comment on above: Fasting Glucose resu lt from 100 to 125 mg/dL suggests IMPAIRED HOMEOSTASIS per A.D.A. criteria. Neutrophils (Bld) [#/Vol] 2.3 10*3/uL 2.0-7.7 [facility] Work Phone: Neutrophils/100 WBC (Bld) 41.3 % 47-70 [facility] Work Phone: Potassium [Moles/Vol] 3.5 mmol/L 3.5-5.1 [facility] Work [facility]: Sodium [Moles/Vol] 140 mmol/L 136-145 [facility] Work Phone: WBC (Bld) [#/Vol] 5.7 10*3/uL 4.4-11.0 [facility] Work Phone: Blood erythrocytes count (nu mber/volume)on 11-30-2021 RBC (Bld) [#/Vol] 4.18 10*6/uL 4.2-5.4 [facility] Work Phone: Blood hemoglobin measurement (mass/volume)on 11-30-2021 Hemoglobin (Bld) [Mass/Vol] 13.0 g/dL 12.0-15.0 [facility] Work Phone: Blood lymphocytes/100 leukoc yteson 11-30-2021 Lymphocytes/100 WBC (Bld) 46.6 % 19-41 [facility] Work Phone: Blood monocytes/100 leukocyt eson 11-30-2021 Monocytes/100 WBC (Bld) 9.4 % 0-10 [facility] Work Phone: Blood platelet mean volumeon 11-30-2021 Platelet mean volume (Bld) [Entitic vol] 9.9 fL 6.2-12.0 [facility] Work Phone: Determination of erythrocyte mean corpuscular volume (MCV)on 11-30-2021 MCV (RBC) [Entitic vol] 91.9 fL 81-99 [facility] Work Phone: Hematocrit Auto (Bld) [Volum e fraction]on 11-30-2021 Hematocrit (Bld) [Volume fraction] 38.4 % 37-47 [facility] Work Phone: Laboratory - Chemistry and C hemistry - challengeon 11-30-2021 CO2 [Moles/Vol] 28.0 mmol/L 21.0-32.0 [facility] Work Phone: Urea nitrogen/Creatinine [Mass ratio] 21.1 mg/mg 10-20 [facility] Work Phone: Laboratory - Hematology and Cell countson 11-30-2021 Erythrocyte distribution width (RBC) [Entitic vol] 40.1 fL 35.1-43.9 [facility] Work Phone: Erythrocyte distribution width (RBC) [Ratio] 11.8 % 11.6-14.6 [facility] Work Phone: Immature granulocytes/100 WBC (Bld) 0.200 % 0.0-0.9 [facility] Work Phone: Comment on above: IG% - Immature Granu locytes (promyelocytes, myelocytes and metamyelocytes) > 1% indicates that a LEFT SHIFT is Present. MCH (RBC) [Entitic mass] 31.1 pg 27.0-32.0 [facility] Work Phone: Nucleated RBC/100 WBC (Bld) [Ratio] 0 % 0-5 [facility] Work Phone: MCHC Auto (RBC) [Mass/Vol]on 11-30-2021 MCHC (RBC) [Mass/Vol] 33.9 g/dL 32-36 [facility] Work Phone: No Panel Informationon 11-30 Estimated Creatinine Clearance Calc 82.15 ml/min [facility] Work Phone: Estimated GFR (MDRD) Amer 103 mL/min >60 [facility] Work Phone: Comment on above: GFR Calc Estimated GFR (MDRD) Non-Af Amer 85 mL/min >60 [facility] Work Phone: Comment on above: Non- GFR Calc Troponin I High Sensitivity 3 pg/mL 3.0-54.0 [facility] Work Phone: Comment on above: Please Note: New Juanita t Units and Gender Specific Reference Ranges. For more information see Policy Stat Procedure [place] High Sensitivity Troponin (TNIH) and attachments. Platelets bldon 11-30-2021 Platelets (Bld) [#/Vol] 283 10*3/uL 150-450 [facility] Work Phone: Serum or plasma calcium ronni urement (mass/volume)on 11-30-2021 Calcium [Mass/Vol] 9.7 mg/dL 8.5-10.1 [facility] Work Phone: Serum or plasma creatinine m easurement (mass/volume)on 11-30-2021 Creatinine [Mass/Vol] 0.76 mg/dL 0.55-1.02 [facility] Work Phone: Comment on above: The validity of the calculated GFR & GFRAA in patients over 70 years has not been determined. Clinical correlation is essential. Serum or plasma urea nitroge n measurement (mass/volume)on 11-30-2021 Urea nitrogen [Mass/Vol] 16 mg/dL 7-18 [facility] Work Phone: Thin prep Papanicolaou smear with manual screeningon 11-30-2021 Thin prep Papanicolaou smear with manual screening 7 -15 [facility] Work Phone: Cervical or vagninal specime n microscopic examination by cytology stain (reported ason 09-03-2021 Cytology report Cyto stain Doc (Cvx/Vag) Comment [facility] Work Phone: Comment on above: The Pap [...] DNA Probe+sig amp Ql (Cvx) Negative Negative [facility] Work Phone: Comment on above: This nucleic acid am plification test detects fourteen high- risk HPV types (16,18,31,33,35,39,45,51,52,56,58,59,66,68)without differentiation.Performed at: - [facility] [id number] Director: Lisandra Adams MD, Phone: [phone] at: =G - [facility] [address] [id number] Director: Lisandra Adams MD, Phone: [phone] Laboratory - Cytologyon Chipper Operator Cyto stain Nom (Cvx/Vag) [ID] Comment [facility] Work Phone: Comment on above: Alyse Mark [employer] hnologist (ASCP) Laboratory - Miscellaneous t estson 09-03-2021 Service comment (Unsp spec) [Interp] Comment [facility] Work Phone: Comment on above: This liquid based Th inPrep(R) pap test was screened withthe use of an image guided system. Service comment (Unsp spec) [Interp] . [facility] Work Phone: No Panel Informationon 09-03 Pathology report final diagnosis Narrative Comment [facility] Work Phone: Comment on above: NEGATIVE FOR INTRAEP ITHELIAL LESION OR MALIGNANCY. No Panel Informationon 08-27 POC SARS CoV-2 Antigen Negative [facility] Work Phone: XR Finger - right AP and Lat eral and obliqueon 2021 IMPRESSION: Tiny accessory bone versus tiny foreign body along the interphalangeal joint. Financial Processing Clerk: LESLIE Transcribe Date/Time: 2021 8:10A Dictated by : MABLE POLANCO MD This examination was interpreted and the report reviewed and electronically signed by: MABLE POLANCO MD on 2021 8:13AM [facility] DIVISION OF RADIOLOGY * * *Final Report* [...] swelling. DIVISION OF RADIOLOGY Provider, Gia [facility] - 2021 * * *Final Report* * [...] tiny foreign body along the interphalangeal joint. Financial Processing Clerk: PSCB Transcribe Date/Time: 2021 8:10A Dictated by : MABLE POLANCO MD This examination was interpreted and the report reviewed and electronically signed by: MABLE POLANCO MD on 2021 8:13AM EST [facility] XR Finger - right AP and Lat eral and obliqueOrdered By: Ccf Provider on 2021 [facility] XR Finger - right AP and Lat eral and obliqueon 08-13-2021 Radiology Study observation (narrative) [facility] SKIN / NAIL BIOPSY [facility] Vital Signs Date Time Vital Sign Value Performing Clinician Facility 04-02-2025 18:11-0400 Body temperature 98 [degF] Dr. Domonique Guzman MD Work Phone: [facility] 04-02-2025 18:11-0400 Diastolic blood pressure 74 mm[Hg] Dr. Domonique Guzman MD Work Phone: [facility] 04-02-2025 18:11-0400 Heart rate 78 /min Dr. Domonique Guzman MD Work Phone: [facility] 04-02-2025 18:11-0400 Respiratory rate 18 /min Dr. Domonique Guzman MD Work Phone: [facility] 04-02-2025 18:11-0400 SaO2% (BldA) [Mass fraction] 99 % Dr. Domonique Guzman MD Work Phone: [facility] 04-02-2025 18:11-0400 Systolic blood pressure 136 mm[Hg] Dr. Domonique Guzman MD Work Phone: [address]04-2025 15:39-0400 Body height 152.[address] Domonique Guzman MD Work Phone: [facility] 04-02-2025 15:39-0400 Body mass index (BMI) [Ratio] 28.1 kg/m2 Dr. Domonique Guzman MD Work Phone: [facility] 04-02-2025 15:39-0400 Body weight 65.[address] Domonique Guzman MD Work Phone: [facility] 12-20-2024 10:46-0400 Body height 152.4 cm Jimmy Quintana MD Work Phone: [facility] 12-20-2024 10:46-0400 Body mass index (BMI) [Ratio] 27.07 kg/m2 Jimmy Quintana MD Work Phone: [facility] 12-20-2024 10:46-0400 Body weight 62.87 kg Jimmy Quintana MD Work Phone: [facility] 12-20-2024 10:46-0400 Diastolic blood pressure 78 mm[Hg] Jimmy Quintana MD Work Phone: [facility] 12-20-2024 10:46-0400 Heart rate 69 /min Jimmy Quintana MD Work Phone: [facility] 12-20-2024 10:46-0400 Respiratory rate 14 /min Jimmy Quintana MD Work Phone: [facility] 12-20-2024 10:46-0400 SaO2% (BldA) [Mass fraction] 98 % Jimmy Quintana MD Work Phone: [facility] 12-20-2024 10:46-0400 Systolic blood pressure 118 mm[Hg] Jimmy Quintana MD Work Phone: [facility] 10-30-2024 08:17-0500 Body height 152.[address] Domonique Guzman MD Work Phone: [facility] 10-30-2024 08:12-0500 Body mass index (BMI) [Ratio] 28.3 kg/m2 Dr. Domonique Guzman MD Work Phone: [facility] 10-30-2024 08:12-0500 Body weight 65.[address] Domonique Guzman MD Work Phone: [facility] 10-30-2024 08:12-0500 Diastolic blood pressure 70 mm[Hg] Dr. Domonique Guzman MD Work Phone: [facility] 10-30-2024 08:12-0500 Systolic blood pressure 122 mm[Hg] Dr. Domonique Guzman MD Work Phone: [facility] 09-20-2024 10:39-0500 Body height 152.4 cm Jimmy Quintana MD Work Phone: [facility] 09-20-2024 10:39-0500 Body mass index (BMI) [Ratio] 28.71 kg/m2 Jimmy Quintana MD Work Phone: [facility] 09-20-2024 10:39-0500 Body weight 66.68 kg Jimmy Quintana MD Work Phone: [facility] 09-20-2024 10:39-0500 Diastolic blood pressure 71 mm[Hg] Jimmy Quintana MD Work Phone: [facility] 09-20-2024 10:39-0500 Heart rate 64 /min Jimmy Quintana MD Work Phone: [facility] 09-20-2024 10:39-0500 Respiratory rate 14 /min Jimmy Quintana MD Work Phone: [facility] 09-20-2024 10:39-0500 SaO2% (BldA) [Mass fraction] 100 % Jimmy Quintana MD Work Phone: [facility] 09-20-2024 10:39-0500 Systolic blood pressure 118 mm[Hg] Jimmy Quintana MD Work Phone: [facility] 05-31-2024 14:32-0400 Body height 149.9 cm Sydnee Taisha BREED TO WEAN PRODUCTION TECHNICIAN.TRACK REPAIR LABORER Work Phone: [facility] 05-31-2024 14:32-0400 Body mass index (BMI) [Ratio] 29.74 kg/m2 Sydnee Taisha BREED TO WEAN PRODUCTION TECHNICIAN.TRACK REPAIR LABORER Work Phone: [facility] 05-31-2024 14:32-0400 Body weight 66.8 kg Sydnee Taisha BREED TO WEAN PRODUCTION TECHNICIAN.TRACK REPAIR LABORER Work Phone: [facility] 05-31-2024 14:32-0400 Diastolic blood pressure 78 mm[Hg] Sydnee Taisha BREED TO WEAN PRODUCTION TECHNICIAN.TRACK REPAIR LABORER Work Phone: [facility] 05-31-2024 14:32-0400 Heart rate 70 /min Sydnee Taisha BREED TO WEAN PRODUCTION TECHNICIAN.TRACK REPAIR LABORER Work Phone: [facility] 05-31-2024 14:32-0400 Systolic blood pressure 115 mm[Hg] Sydnee Taisha BREED TO WEAN PRODUCTION TECHNICIAN.TRACK REPAIR LABORER Work Phone: [facility] 10-11-2023 14:47-0500 Body height 152.4 cm Sydnee Taisha BREED TO WEAN PRODUCTION TECHNICIAN.TRACK REPAIR LABORER Work Phone: [facility] 10-11-2023 14:47-0500 Body weight 66.54 kg Sydnee Taisha BREED TO WEAN PRODUCTION TECHNICIAN.TRACK REPAIR LABORER Work Phone: [facility] 10-11-2023 14:47-0500 Diastolic blood pressure 80 mm[Hg] Sydnee Taisha BREED TO WEAN PRODUCTION TECHNICIAN.TRACK REPAIR LABORER Work Phone: [facility] 10-11-2023 14:47-0500 Heart rate 77 /min Sydnee Taisha BREED TO WEAN PRODUCTION TECHNICIAN.TRACK REPAIR LABORER Work Phone: [facility] 10-11-2023 14:47-0500 Respiratory rate 16 /min Sydnee Taisha BREED TO WEAN PRODUCTION TECHNICIAN.TRACK REPAIR LABORER Work Phone: [facility] 10-11-2023 14:47-0500 Systolic blood pressure 124 mm[Hg] Sydnee Taisha BREED TO WEAN PRODUCTION TECHNICIAN.TRACK REPAIR LABORER Work Phone: [facility] 07-12-2023 10:41-0500 Diastolic blood pressure 76 mm[Hg] Rufina Tomlinson MD Work Phone: [facility] 07-12-2023 10:41-0500 Heart rate 77 /min Rufina Tomlinson MD Work Phone: [facility] 07-12-2023 10:41-0500 Systolic blood pressure 124 mm[Hg] Rufina Tomlinson MD Work Phone: [facility] 05-12-2023 13:25-0400 Body height 148.6 cm Sydnee Taisha BREED TO WEAN PRODUCTION TECHNICIAN.TRACK REPAIR LABORER Work Phone: [facility] 05-12-2023 13:25-0400 Body weight 63.5 kg Sydnee Taisha BREED TO WEAN PRODUCTION TECHNICIAN.TRACK REPAIR LABORER Work Phone: [facility] 05-12-2023 13:25-0400 Diastolic blood pressure 64 mm[Hg] Sydnee Taisha BREED TO WEAN PRODUCTION TECHNICIAN.TRACK REPAIR LABORER Work Phone: [facility] 05-12-2023 13:25-0400 Heart rate 85 /min Sydnee Taisha BREED TO WEAN PRODUCTION TECHNICIAN.TRACK REPAIR LABORER Work Phone: [facility] 05-12-2023 13:25-0400 SaO2% (BldA) [Mass fraction] 98 % Sydnee Taisha BREED TO WEAN PRODUCTION TECHNICIAN.TRACK REPAIR LABORER Work Phone: [facility] 05-12-2023 13:25-0400 Systolic blood pressure 114 mm[Hg] Sydnee Taisha BREED TO WEAN PRODUCTION TECHNICIAN.TRACK REPAIR LABORER Work Phone: [facility] 04-21-2023 14:34-0400 Body weight 64.41 kg Sdynee Taisha BREED TO WEAN PRODUCTION TECHNICIAN.TRACK REPAIR LABORER Work Phone: [facility] 04-21-2023 14:34-0400 Diastolic blood pressure 60 mm[Hg] Sydnee Taisha BREED TO WEAN PRODUCTION TECHNICIAN.TRACK REPAIR LABORER Work Phone: [facility] 04-21-2023 14:34-0400 Heart rate 78 /min Sydnee Taisha BREED TO WEAN PRODUCTION TECHNICIAN.TRACK REPAIR LABORER Work Phone: [facility] 04-21-2023 14:34-0400 SaO2% (BldA) [Mass fraction] 99 % Sydnee Taisha BREED TO WEAN PRODUCTION TECHNICIAN.TRACK REPAIR LABORER Work Phone: [facility] 04-21-2023 14:34-0400 Systolic blood pressure 100 mm[Hg] Sydnee Taisha BREED TO WEAN PRODUCTION TECHNICIAN.TRACK REPAIR LABORER Work Phone: [facility] 02-23-2023 08:19-0400 Body height 149.9 cm Samantha Butler MD Work Phone: [facility] 02-23-2023 08:19-0400 Body temperature 98.91 [degF] Samantha Butler MD Work Phone: [facility] 02-23-2023 08:19-0400 Body weight 64.41 kg Samantha Butler MD Work Phone: [facility] 02-23-2023 08:19-0400 Diastolic blood pressure 67 mm[Hg] Samantha Butler MD Work Phone: [facility] 02-23-2023 08:19-0400 Heart rate 70 /min Samantha Butler MD Work Phone: [facility] 02-23-2023 08:19-0400 SaO2% (BldA) [Mass fraction] 100 % Samantha Butler MD Work Phone: [facility] 02-23-2023 08:19-0400 Systolic blood pressure 132 mm[Hg] Samantha Butler MD Work Phone: [facility] 01-11-2023 12:54-0400 Body weight 63.96 kg Maryam Emmanuel BREED TO WEAN PRODUCTION TECHNICIAN.NAIL FEEDER Work Phone: [facility] 01-11-2023 12:54-0400 Diastolic blood pressure 70 mm[Hg] Maryam Emmanuel BREED TO WEAN PRODUCTION TECHNICIAN.NAIL FEEDER Work Phone: [facility] 01-11-2023 12:54-0400 Heart rate 68 /min Maryam Emmanuel BREED TO WEAN PRODUCTION TECHNICIAN.NAIL FEEDER Work Phone: [facility] 01-11-2023 12:54-0400 Respiratory rate 16 /min Maryam Emmanuel BREED TO WEAN PRODUCTION TECHNICIAN.NAIL FEEDER Work Phone: [facility] 01-11-2023 12:54-0400 Systolic blood pressure 122 mm[Hg] Maryam Emmanuel BREED TO WEAN PRODUCTION TECHNICIAN.NAIL FEEDER Work Phone: [facility] 10-14-2022 12:47-0500 Body height 149.9 cm Jimmy Quintana MD Work Phone: [facility] 10-14-2022 12:47-0500 Body weight 60.78 kg Jimmy Quintana MD Work Phone: [facility] 10-14-2022 12:47-0500 Diastolic blood pressure 82 mm[Hg] Jimmy Quintana MD Work Phone: [facility] 10-14-2022 12:47-0500 Heart rate 59 /min Jimmy Quintana MD Work Phone: [facility] 10-14-2022 12:47-0500 SaO2% (BldA) [Mass fraction] 100 % Jimmy Quintana MD Work Phone: [facility] 10-14-2022 12:47-0500 Systolic blood pressure 133 mm[Hg] Jimmy Quintana MD Work Phone: [facility] 09-08-2022 08:34-0500 Body height 152.[address] Domonique Guzman Work Phone: [facility] 09-08-2022 08:27-0500 Body mass index (BMI) [Ratio] 26.2 kg/m2 Dr. Domonique Guzman Work Phone: [facility] 09-08-2022 08:27-0500 Body weight [address] Domonique Guzman Work Phone: [facility] 09-08-2022 08:27-0500 Diastolic blood pressure 72 mm[Hg] Dr. Domonique Gzuman Work Phone: [facility] 09-08-2022 08:27-0500 Systolic blood pressure 114 mm[Hg] Dr. Domonique Guzman Work Phone: [facility] 07-02-2022 10:59-0400 Body temperature 98.91 [degF] Samantha Butler MD Work Phone: [facility] 07-02-2022 10:59-0400 Body weight 60.33 kg Samantha Butler MD Work Phone: [facility] 07-02-2022 10:59-0400 Diastolic blood pressure 70 mm[Hg] Samantha Butler MD Work Phone: [facility] 07-02-2022 10:59-0400 Heart rate 69 /min Samantha Butler MD Work Phone: [facility] 07-02-2022 10:59-0400 Systolic blood pressure 124 mm[Hg] Samantha Butler MD Work Phone: [facility] 04-22-2022 13:02-0400 Body height 149.9 cm Domonique Guzman MD Work Phone: [facility] 04-22-2022 13:02-0400 Body weight 60.33 kg Domonique Guzman MD Work Phone: [facility] 04-22-2022 13:02-0400 Diastolic blood pressure 78 mm[Hg] Domonique Guzman MD Work Phone: [facility] 04-22-2022 13:02-0400 Heart rate 67 /min Domonique Guzman MD Work Phone: [facility] 04-22-2022 13:02-0400 SaO2% (BldA) [Mass fraction] 97 % Domonique Guzman MD Work Phone: [facility] 04-22-2022 13:02-0400 Systolic blood pressure 118 mm[Hg] Domonique Guzman MD Work Phone: [facility] 01-29-2022 10:24-0400 Body height 152.4 cm Samantha Butler MD Work Phone: [facility] 01-29-2022 10:24-0400 Body temperature 99.19 [degF] Samantha Butler MD Work Phone: [facility] 01-29-2022 10:24-0400 Body weight 59.83 kg Samantha Butler MD Work Phone: [facility] 01-29-2022 10:24-0400 Diastolic blood pressure 69 mm[Hg] Samantha Butler MD Work Phone: [facility] 01-29-2022 10:24-0400 Heart rate 67 /min Samantha Butler MD Work Phone: [facility] 01-29-2022 10:24-0400 Systolic blood pressure 120 mm[Hg] Samantha Butler MD Work Phone: [facility] 01-28-2022 10:40-0400 Body height 152.4 cm Jimmy Quintana MD Work Phone: [facility] 01-28-2022 10:40-0400 Body weight 58.15 kg Jimmy Quintana MD Work Phone: [facility] 01-28-2022 10:40-0400 Diastolic blood pressure 75 mm[Hg] Jimmy Quintana MD Work Phone: [facility] 01-28-2022 10:40-0400 Heart rate 75 /min Jimmy Quintana MD Work Phone: [facility] 01-28-2022 10:40-0400 Respiratory rate 16 /min Jimmy Quintana MD Work Phone: [facility] 01-28-2022 10:40-0400 SaO2% (BldA) [Mass fraction] 100 % Jimmy Quintana MD Work Phone: [facility] 01-28-2022 10:40-0400 Systolic blood pressure 112 mm[Hg] Jimmy Quintana MD Work Phone: [facility] 01-14-2022 15:30-0400 Diastolic blood pressure 76 mm[Hg] Ct (I-Stat) Work Phone: [facility] 01-14-2022 15:30-0400 Heart rate 72 /min Ct (I-Stat) Work Phone: [facility] 01-14-2022 15:30-0400 Systolic blood pressure 117 mm[Hg] Ct (I-Stat) Work Phone: [facility] 01-05-2022 14:12-0400 Diastolic blood pressure 83 mm[Hg] [facility] Work Phone: 01-05-2022 14:12-0400 Heart rate 71 /min [facility] Work Phone: 01-05-2022 14:12-0400 Respiratory rate 18 /min [facility] Work Phone: 01-05-2022 14:12-0400 Systolic blood pressure 144 mm[Hg] [facility] Work Phone: 01-05-2022 13:27-0400 SaO2% (BldA) [Mass fraction] 98 % [facility] Work Phone: 01-05-2022 12:26-0400 Body height 152.[address] [facility] Work Phone: 01-05-2022 12:26-0400 Body mass index (BMI) [Ratio] 25 kg/m2 [facility] Work Phone: 01-05-2022 12:26-0400 Body temperature 98 [degF] [facility] Work Phone: 01-05-2022 12:26-0400 Body weight 58.[address] [facility] Work Phone: 12-24-2021 13:27-0400 Diastolic blood pressure 94 mm[Hg] Jimmy Quintana MD Work Phone: [facility] 12-24-2021 13:27-0400 Systolic blood pressure 157 mm[Hg] Jimmy Quintana MD Work Phone: [facility] 12-24-2021 13:26-0400 SaO2% (BldA) [Mass fraction] 100 % Jimmy Quintana MD Work Phone: [facility] 12-24-2021 13:24-0400 Body height 152.4 cm Jimmy Quintana MD Work Phone: [facility] 12-24-2021 13:24-0400 Body weight 56.52 kg Jimmy Quintana MD Work Phone: [facility] 12-19-2021 14:21-0400 Diastolic blood pressure 86 mm[Hg] Dr. Domonique Guzman Work Phone: [facility] Work Phone: 12-19-2021 14:21-0400 Heart rate 88 /min Dr. Domonique Guzman Work Phone: [facility] Work Phone: 12-19-2021 14:21-0400 Respiratory rate 18 /min Dr. Domonique Guzman Work Phone: [facility] Work Phone: 12-19-2021 14:21-0400 SaO2% (BldA) [Mass fraction] 98 % Dr. Domonique Guzman Work Phone: [facility] Work Phone: 12-19-2021 14:21-0400 Systolic blood pressure 125 mm[Hg] Dr. Domonique Guzman Work Phone: [facility] Work Phone: 12-19-2021 11:42-0400 Body height 152.[address] Domonique Guzman Work Phone: [facility] Work Phone: 12-19-2021 11:42-0400 Body mass index (BMI) [Ratio] 27.7 kg/m2 Dr. Domonique Guzman Work Phone: [facility] Work Phone: 12-19-2021 11:42-0400 Body temperature 98.3 [degF] Dr. Domonique Guzman Work Phone: [facility] Work Phone: 12-19-2021 11:42-0400 Body weight 64.[address] Domonique Guzman Work Phone: [facility] Work Phone: 12-12-2021 09:33-0400 Body weight 58.97 kg Maryam Emmanuel BREED TO WEAN PRODUCTION TECHNICIAN.NAIL FEEDER Work Phone: [facility] 12-12-2021 09:33-0400 Diastolic blood pressure 76 mm[Hg] Maryam Emmanuel BREED TO WEAN PRODUCTION TECHNICIAN.NAIL FEEDER Work Phone: [facility] 12-12-2021 09:33-0400 Heart rate 80 /min Maryam Emmanuel BREED TO WEAN PRODUCTION TECHNICIAN.NAIL FEEDER Work Phone: [facility] 12-12-2021 09:33-0400 Respiratory rate 16 /min Maryam Emmanuel BREED TO WEAN PRODUCTION TECHNICIAN.NAIL FEEDER Work Phone: [facility] 12-12-2021 09:33-0400 Systolic blood pressure 122 mm[Hg] Maryam Emmanuel BREED TO WEAN PRODUCTION TECHNICIAN.NAIL FEEDER Work Phone: [facility] 11-30-2021 12:12-0400 Diastolic blood pressure 91 mm[Hg] Dr. Domonique Guzman Work Phone: [facility] Work Phone: 11-30-2021 12:12-0400 Heart rate 70 /min Dr. Domonique Guzman Work Phone: [facility] Work Phone: 11-30-2021 12:12-0400 Respiratory rate 13 /min Dr. Domonique Guzman Work Phone: [facility] Work Phone: 11-30-2021 12:12-0400 SaO2% (BldA) [Mass fraction] 100 % Dr. Domonique Guzman Work Phone: [facility] Work Phone: 11-30-2021 12:12-0400 Systolic blood pressure 140 mm[Hg] Dr. Domonique Guzman Work Phone: [facility] Work Phone: 11-30-2021 11:09-0400 Body height 172.[address] Domonique Guzman Work Phone: [facility] Work Phone: 11-30-2021 11:09-0400 Body mass index (BMI) [Ratio] 19.9 kg/m2 Dr. Domonique Guzman Work Phone: [facility] Work Phone: 11-30-2021 11:09-0400 Body temperature 97.6 [degF] Dr. Domonique Guzman Work Phone: [facility] Work Phone: 11-30-2021 11:09-0400 Body weight 59.[address] Domonique Guzman Work Phone: [facility] Work Phone: 09-03-2021 09:12-0500 Body mass index (BMI) [Ratio] 25.2 kg/m2 Dr. Domonique Guzman Work Phone: [facility] Work Phone: 09-03-2021 09:12-0500 Body weight 58.[address] Domonique Guzman Work Phone: [facility] Work Phone: 09-03-2021 09:12-0500 Diastolic blood pressure 70 mm[Hg] Dr. Domonique Guzman Work Phone: [facility] Work Phone: 09-03-2021 09:12-0500 Systolic blood pressure 120 mm[Hg] Dr. Domonique Guzman Work Phone: [facility] Work Phone: 08-27-2021 09:55-0500 Body mass index (BMI) [Ratio] 25.6 kg/m2 Dr. Domonique Guzman Work Phone: [facility] Work Phone: 08-27-2021 09:55-0500 Body temperature 98 [degF] Dr. Domonique Guzman Work Phone: [facility] Work Phone: 08-27-2021 09:55-0500 Body weight 59.[address] Domonique Guzman Work Phone: [facility] Work Phone: 08-27-2021 09:55-0500 Diastolic blood pressure 72 mm[Hg] Dr. Domonique Guzman Work Phone: [facility] Work Phone: 08-27-2021 09:55-0500 Heart rate 66 /min Dr. Domonique Guzman Work Phone: [facility] Work Phone: 08-27-2021 09:55-0500 Respiratory rate 16 /min Dr. Domonique Guzman Work Phone: [facility] Work Phone: 08-27-2021 09:55-0500 SaO2% (BldA) [Mass fraction] 98 % Dr. Domonique Guzman Work Phone: [facility] Work Phone: 08-27-2021 09:55-0500 Systolic blood pressure 122 mm[Hg] Dr. Domonique Guzman Work Phone: [facility] Work Phone: Encounters Encounter Date Encounter Type [...] Start: 01-03-2025 End: 01-03-2025 ambulatory DOMONIQUE STAPLETONKENDELL Facility:[facility] Start: 12-20-2024 End: 12-20-2024 Patient encounter procedure Jimmy Quintana MD Work Phone: Cardiology Comment on above: History of gastritis ; Family history of coronary artery disease; Pure hypercholesterolemia Start: 12-20-2024 End: 12-20-2024 [facility] Start: 12-19-2024 End: 12-19-2024 ambulatory DOMONIQUE Francheska [facility] Start: 11-30-2024 End: 12-07-2024 ambulatory Jimmy Quintana MD Work Phone: Cardiology Comment on above: Blood work Start: 11-24-2024 End: 01-24-2025 Follow-up encounter Sydnee Sumner APRN.CNP Work Phone: [facility] Start: 11-20-2024 End: 11-20-2024 ambulatory SYDNEE SUMNER Facility:[facility] Start: 11-20-2024 End: 11-20-2024 Subsequent hospital visit by physician Screen Mammo [facility] Comment on above: Encounter for screen ing mammogram for breast cancer [Z12.31] Start: 11-02-2024 End: 11-10-2024 Get Medical Advice Domonique Guzman MD Work Phone: [facility] [place] Comment on above: Mammogram order Start: 10-30-2024 End: 10-30-[address] Domonique Guzman MD Work Phone: [facility] Work Phone: Start: 10-30-2024 End: 10-30-2024 Patient encounter procedure Mahsa Fischer RETAIL SALESWORKER-C -Laboratory, Specimen Work Phone: Start: 10-30-2024 End: 10-30-2024 Patient encounter procedure Mahsa Fischer RETAIL SALESWORKER-C -[facility] Work Phone: Start: 10-30-2024 End: 10-30-2024 Patient encounter status Mahsa Fischer RETAIL SALESWORKER-C [facility] Start: 10-30-2024 End: 10-30-2024 ambulatory Mahsa Fischer RETAIL SALESWORKER Facility[facility] Start: 10-30-2024 End: 10-30-2024 ambulatory Mahsa Fischer ROSELIA Facility:[facility] Start: 10-09-2024 End: 10-09-2024 ambulatory JIMMY QUINTANA Facility:[facility] Start: 10-03-2024 End: 10-04-2024 Refill Reynaldo Whatley APRN.CNP Work Phone: Cardiology Comment on above: Refill Request Start: 10-02-2024 ambulatory DOMONIQUE GUZMAN Facilit y:[facility] Start: 10-02-2024 End: 10-02-2024 Subsequent hospital visit by physician Stress Lab 1 [facility] Work Phone: Cardiology Lab Start: 10-02-2024 ambulatory UNKNOWN PROVIDER Facili ty:[facility] Start: 10-02-2024 End: 10-02-2024 Subsequent hospital visit by physician [facility] Work Phone: Molecular Imaging Start: 09-29-2024 End: 09-29-2024 Telephone encounter Liberty Hubbard RN Cardiology Lab Comment on above: Reminder Call Start: 09-22-2024 End: 09-22-2024 Emergency department patient visit TEJAL ISABEL Facility:[facility] Start: 09-22-2024 End: 09-26-2024 Telephone encounter Jimmy [...] Start: 09-20-2024 End: 09-20-2024 ambulatory JIMMY QUINTANA Facility:[facility] Start: 09-15-2024 End: 09-15-2024 ambulatory NOHEMY HILL Facility:[facility] Start: 09-15-2024 End: 09-15-2024 Patient encounter procedure Nohemy Hill DO Work Phone: Dermatology [facility] Comment on above: Dermatofibroma (Prim skyler Dx) Start: 09-14-2024 End: 09-15-2024 Refill Sydnee Sumner BREED TO WEAN PRODUCTION TECHNICIAN.TRACK REPAIR LABORER Work Phone: [facility] [place] Comment on above: Refill Request Start: 09-07-2024 [...] trigger; [employer] Start: 06-06-2024 End: 06-06-2024 ambulatory [facility] Facility:[facility] Start: 06-01-2024 End: 06-01-2024 ambulatory [facility] Facility:[facility] Start: 05-31-2024 End: 05-31-2024 Patient encounter procedure Sydnee Sumner BREED TO WEAN PRODUCTION TECHNICIAN.TRACK REPAIR LABORER Work Phone: [facility] [place] Comment on above: Wellness examination (Primary Dx); Screening for depression; Encounter for screening examination for other mental health and behavioral disorders; Encounter for therapeutic drug monitoring; Vitamin D deficiency; Memory impairment; Screening for lipid disorders Start: 05-31-2024 End: 05-31-2024 Patient encounter status Sydnee Sumner APRN.TRACK REPAIR LABORER Work Phone: [facility] Work Phone: Start: 05-31-2024 End: 05-31-2024 ambulatory DOMONIQUE D TALAMPAS Facility:[facility] Start: 05-31-2024 Encounter for genera l adult medical examination without abnormal findings SYDNEE SUMNER [facility] Start: 03-01-2024 Orders Only Jimmy sorensen MD [...] 11-11-2023 Documentation procedure Mammog esha Coordinator [facility] Start: 11-11-2023 Letter encounter Mammography Coordinator [facility] Department Start: 11-10-2023 End: 11-10-2023 Subsequent hospital visit by physician Screen Mammo [facility] Comment on above: Encounter for screen ing mammogram for breast cancer [Z12.31] Start: 10-11-2023 End: 10-11-2023 Subsequent hospital visit by physician Xr [facility] [place] Work Phone: Radiology Comment on above: Acute left-sided tho racic back pain [M54.6] Start: 10-11-2023 End: 10-11-2023 Patient encounter procedure Sydnee Sumner APRN.TRACK REPAIR LABORER Work Phone: [facility] [place] Comment on above: Acute left-sided tho racic back pain (Primary Dx) Start: 08-04-2023 ambulatory Domonique sorensen MD Work Phone: Internal [facility] [place] Start: 07-12-2023 End: 07-12-2023 Patient encounter procedure Rufina Tomlinson MD Work Phone: Dermatology Comment on above: Basal cell carcinoma of face Start: 05-24-2023 Refill Sydnee Taisha BREED TO WEAN PRODUCTION TECHNICIAN.TRACK REPAIR LABORER Work Phone: [facility] [place] Comment on above: Refill Request Start: 05-14-2023 Telephone encounter Suyapa BATES-C Work Phone: Dermatology Comment on above: Question Start: 05-12-2023 End: 05-12-2023 Patient encounter procedure Sydnee Taisha BREED TO WEAN PRODUCTION TECHNICIAN.TRACK REPAIR LABORER Work Phone: [facility] [place] Comment on above: Wellness examination (Primary Dx); Gastroesophageal reflux disease without esophagitis; Raynaud's phenomenon without gangrene; Pain of right heel; Encounter for immunization Start: 05-12-2023 End: 05-12-2023 Patient encounter status Sydnee Taisha BREED TO WEAN PRODUCTION TECHNICIAN.TRACK REPAIR LABORER Work Phone: [facility] Work Phone: Start: 04-21-2023 End: 04-21-2023 Patient encounter procedure Sydnee Taisha BREED TO WEAN PRODUCTION TECHNICIAN.TRACK REPAIR LABORER Work Phone: [facility] [place] Comment on above: Abdominal pain, RUQ (right [...] Office outpatient visit 15 minutes Maryam Emmanuel APRNDaiNAIL FEEDER Work Phone: [facility] [place] Comment on above: Acute pain of right shoulder (Primary Dx) Start: 10-14-2022 End: 10-14-2022 Patient encounter procedure Jimmy Quintana MD Work Phone: Cardiology Comment on above: Palpitations (Primar y Dx); Coronary artery disease involving [place] coronary artery of [place] heart without angina pectoris Start: 09-08-2022 End: 09-08-[address] Domonique Guzman Work Phone: [facility] Work Phone: Start: 09-08-2022 End: 09-08-[address] Domonique Guzman Work Phone: [facility]-Laboratory, Specimen Start: 09-08-2022 End: 09-08-[address] Domonique Guzman Work Phone: [facility] Start: 07-02-2022 End: 07-02-2022 Patient encounter procedure Samantha Butler MD Work Phone: Rheumatology Comment on above: Positive (antinu clear antibody) (Primary Dx); Trigger thumb of right hand; Raynaud's phenomenon without gangrene; Hypermobile joints Start: 07-01-2022 Documentation procedure Mammog esha Coordinator [facility] Start: 07-01-2022 Letter encounter Mammography Coordinator [facility] Department Start: 06-14-2022 Get Medical Advice Domonique griffiths MD Work Phone: [facility] [place] Comment on above: Requesting order for a mammogram Start: 04-22-2022 End: 04-22-2022 Patient encounter procedure Domonique Guzman MD Work Phone: [facility] [place] Comment on above: Routine medical exam (Primary Dx); Pure hypercholesterolemia; Costochondritis; Localized primary osteoarthritis of carpometacarpal (CMC) joint of right wrist; Encounter for long-term current use of medication; Need for vaccination Start: 04-22-2022 End: 04-22-2022 Patient encounter status Domonique Guzman MD Work Phone: [facility] [place] Start: 04-15-2022 [facility] Get Medical Advice Domonique griffiths MD Work Phone: [facility] [place] Comment on above: Request for choleste rol/liver [...] 01-05-2022 End: 01-05-2022 Emergency department patient visit [facility]-Emergency Department Start: 01-02-2022 Telephone encounter Jimmy Quintana MD Work Phone: [facility] Comment on above: Orders Start: 12-31-2021 Telephone encounter Domonique carmona MD Work Phone: [facility] [place] Comment on above: COVID positive (Home test) Start: 12-26-2021 Telephone encounter Jimmy Quintana MD Work Phone: Cardiology Comment on above: Patient Question (ad red) Start: 12-25-2021 End: 12-25-2021 Nursing evaluation of patient and report Nurse Card Admin [facility] Work Phone: Cardiology Comment on above: Palpitations (Primar y Dx) Start: 12-24-2021 Telephone encounter Domonique carmona MD Work Phone: [facility] [place] Comment on above: Results Holter Monitor Appli cation Start: 12-24-2021 End: 12-24-2021 Patient encounter procedure Jimmy Quintana MD Work Phone: Cardiology Comment on above: Palpitations (Primar y Dx); Atypical chest pain; Family history of coronary artery disease; ACS (acute coronary syndrome) (HCC) Start: 12-19-2021 End: 12-19-[address] Domonique Guzman Work Phone: [facility] Start: 12-19-2021 End: 12-19-2021 Emergency department patient visit Dr. Domonique Guzman Work Phone: [facility]-Emergency Department Start: 12-12-2021 End: 12-12-2021 Patient encounter procedure Maryam Emmanuel APRN.CNS Work Phone: [facility] [place] Comment on above: Atypical chest pain (Primary Dx); Family history of coronary artery disease; History of gastritis; Gastric polyp; Fibromyalgia; Pain of left hip joint; Chronic pain of both knees; Bilateral hand pain; Pure hypercholesterolemia Start: 11-30-2021 End: 11-30-2021 Emergency department patient visit Dr. Domonique Guzman Work Phone: [facility]Emergency Department Start: 11-30-2021 End: 11-30-2021 Patient encounter procedure Nessa BolañosJordanLong TRACK REPAIR LABORER Work Phone: [facility] Comment on above: Chest pain, unspecif ied type (Primary Dx) Start: 09-03-2021 End: 09-03-[address] Domonique Guzman Work Phone: [facility]-Laboratory, Specimen Start: 09-03-2021 End: 09-03-[address] Domonique Guzman Work Phone: [facility] Start: 08-27-2021 End: 08-27-[address] Domonique Guzman Work Phone: [facility] Start: 08-13-2021 End: 08-13-2021 Subsequent hospital visit by physician [facility] Work Phone: Radiology Comment on above: Pain [...] Adult depression scr eening assessment Sydnee Taisha BREED TO WEAN PRODUCTION TECHNICIAN.TRACK REPAIR LABORER Work Phone: Start: 10-11-2023 Radex spine thoracic 2 views Sydnee Taisha BREED TO WEAN PRODUCTION TECHNICIAN.TRACK REPAIR LABORER Work Phone: Start: 04-22-2023 Lipid 1995 panel - S fredis or Plasma Sydnee Taisha BREED TO WEAN PRODUCTION TECHNICIAN.TRACK REPAIR LABORER Work Phone: Start: 04-16-2023 SKIN / NAIL [...] Adult depression scr eening assessment Maryam Emmanuel BREED TO WEAN PRODUCTION TECHNICIAN.NAIL FEEDER Work Phone: Start: 11-30-2021 Plain chest X-ray Dr. Maday Guzman Work Phone: Start: 08-13-2021 Radex fingr minimum 2 views Chelsy M Celestina BREED TO WEAN PRODUCTION TECHNICIAN.TRACK REPAIR LABORER Work Phone: Start: 06-12-2021 Mammography Nessa Eldridge BREED TO WEAN PRODUCTION TECHNICIAN.TRACK REPAIR LABORER Work Phone: Start: 03-18-2021 Colonoscopy Nessa Eldridge BREED TO WEAN PRODUCTION TECHNICIAN.TRACK REPAIR LABORER Work Phone: Start: 02-22-2021 Adult depression scr eening assessment Nessa Nivia BREED TO WEAN PRODUCTION TECHNICIAN.TRACK REPAIR LABORER Work Phone: Cytopathology proced ure, preparation of smear, genital source Dr. Domonique Guzman Work Phone: Investigation of transfusion reaction Dr. Domonique Guzman Work Phone: Urine culture Dr. Domonique fowler Work Phone: Plan of Treatment Date Care Activity Detail Author Start: 03-18-2031 Colonoscopy COLONOSCOPY [facility] Start: 03-18-2031 COLORECTAL CANCER SCREENING COLORECTAL CANCER SCREENING [facility] Start: 03-18-2031 Screening for malignant neoplasm of colon [facility] Start: 12-19-2029 Lipid panel Lipid Screening [facility] Start: 06-01-2029 Lipid panel Lipid Screening [facility] Start: 04-22-2028 Lipid 1996 panel - Serum or Plasma Lipid Screening [facility] Start: 04-22-2028 Lipid panel Lipid Screening [facility] Start: 12-20-2027 Diabetes Screening Diabetes Screening [facility] Start: 10-12-2027 LIPID SCREEN LIPID SCREEN [facility] Start: 09-22-2027 Diabetes Screening Diabetes Screening [facility] Start: 06-01-2027 Diabetes Screening Diabetes Screening [facility] Start: 05-13-2027 LIPID SCREEN LIPID SCREEN [facility] Start: 08-21-2026 LIPID SCREEN LIPID SCREEN [facility] Start: 02-19-2026 DIABETES SCREEN DIABETES SCREEN [facility] Start: 02-19-2026 Diabetes Screening Diabetes Screening [facility] Start: 11-20-2025 Screening for malignant neoplasm of breast Mammogram Screening [facility] Start: 10-12-2025 DIABETES SCREEN DIABETES SCREEN [facility] Start: 06-27-2025 End: 06-27-2025 Patient encounter procedure 06/27/2025 10:30 AM EDT Office Visit Cardiology [address] [place] [address] Jimmy Quintana MD [address] [place] [address] Family history of coronary artery disease Cardiology Comment on above: Family history of coronary artery disekendell krishna Start: 06-26-2025 End: 06-26-2025 Patient encounter procedure 06/26/2025 9:00 AM EDT Office Visit Cardiology [address] [id number] Reynaldo Whatley, BREED TO WEAN PRODUCTION TECHNICIAN.TRACK REPAIR LABORER [address] [facility] [address] [place] [address] DX: Family history of coronary artery disease Cardiology Comment on above: DX: Family history of coronary artery di sease Start: 06-15-2025 End: 06-15-2025 Patient encounter procedure 06/15/2025 8:00 AM EDT Office Visit [facility] [place] [address] [place], [place] [address] Domonique Guzman MD [address] [place], [place] [address] physical [facility] [place] Comment on above: physical Start: 05-31-2025 Anxiety Screening Anxiety Screening [facility] Start: 05-31-2025 Depression Screening Depression Screening [facility] Start: 05-13-2025 DIABETES SCREEN DIABETES SCREEN [facility] Start: 04-30-2025 Influenza vaccination Influenza Vaccine (Season Ended) [facility] Start: 04-02-2025 [facility] Start: 01-03-2025 End: 01-03-2025 Patient encounter procedure 01/03/2025 3:40 PM EDT Office Visit Dermatology [address] [id number] Carlton Pabon MD [address] [id number] [facility] D[facility]atology Comment on above: [facility] Start: 12-20-2024 End: 12-20-2024 Patient encounter procedure 12/20/2024 11:00 AM EDT Office Visit Cardiology [address] [id number] Jimmy Quintana MD [address] [place] [address] Encounter for screening for cardiovascular disorders Cardiology Comment on above: Encounter for screening for cardiovascul ar disorders Start: 12-08-2024 End: 03-09-2025 Comprehensive metabolic 2000 panel - Serum or Plasma COMPREHENSIVE METABOLIC PANEL Lab Routine Mixed hyperlipidemia Expected: 12/08/2024, Expires: 03/09/2025 [facility] Work Phone: Comment on above: Expected: 12/08/2024, Expires: Start: 12-07-2024 End: 03-08-2025 Lipid 1996 panel - Serum or Plasma LIPID PANEL, FASTING Lab Routine Mixed hyperlipidemia Expected: 12/07/2024, Expires: 03/08/2025 [facility] Comment on above: Expected: 12/07/2024, Expires: Start: 11-20-2024 End: 11-20-2024 Patient encounter procedure 11/20/2024 2:30 PM EDT Appointment Mammogram [address] [place] [address] Mammogram Start: 11-09-2024 Screening for malignant neoplasm of breast Mammogram Screening [facility] Start: 10-09-2024 End: 10-09-2024 Patient encounter procedure 10/09/2024 12:30 PM EST Office Visit Vascular Surgery [address] [address] Bruit [R09.89] Vascular Surgery Comment on above: Bruit [R09.89] Start: 10-02-2024 Subsequent hospital visit by physician 10/02/2024 9:00 AM EST Hospital Encounter Cardiology Lab [address] [place] [address] Cardiology Lab Start: 10-02-2024 End: 10-02-2024 Patient encounter procedure Molecular Imaging Comment on above: stress test Start: 09-27-2024 End: 10-21-2025 NM Heart Perfusion W multiple states of exercise NM CARDIAC PERF STRESS/EXERCISE Radiology Routine Expected: 09/27/2024, Expires: 10/21/2025 [facility] Comment on above: Expected: 09/27/2024, Expires: Start: 09-27-2024 End: 09-20-2025 US Carotid arteries - bilateral US CAROTID ARTERIES [facility] Vascular Lab Routine Bruit Expected: 09/27/2024, Expires: 09/20/2025 [facility] Work Phone: Comment on above: Expected: 09/27/2024, Expires: Start: 09-20-2024 End: 09-20-2024 Patient encounter procedure 09/20/2024 11:00 AM EST Office Visit Cardiology [address] [place], [place] [phone] Jimmy Quintana MD [address] [place], [place] [id number] DX: Palpitations; Family history of ischemic heart disease; Pure hypercholesterolemia; Raynaud's phenomenon without gangrene Cardiology Comment on above: DX: Palpitations; Family history of isch emic heart disease; Pure hypercholesterolemia; Raynaud's phenomenon without gangrene Start: 09-20-2024 End: 09-20-2024 ambulatory 09/20/2024 10:00 AM EST Results Only Cardiology [address] [place], [place] [id number] DX: Palpitations; Family history of ischemic heart disease; Pure hypercholesterolemia; Raynaud's phenomenon without gangrene Cardiology Comment on above: DX: Palpitations; Family history of isch emic heart disease; Pure hypercholesterolemia; Raynaud's phenomenon without gangrene Start: 09-04-2024 End: 09-04-2024 Patient encounter procedure 09/04/2024 12:00 PM EST Office Visit Cardiology [address] [place], [place] [phone] [place] [address] [place] [id number] Clinician, Interventional [address] [place] [id number] dx: Palpitations; Family history of ischemic heart disease; Pure hypercholesterolemia; Raynaud's phenomenon without gangrene Cardiology Comment on above: dx: Palpitations; Family history of isch emic heart disease; Pure hypercholesterolemia; Raynaud's phenomenon without gangrene Start: 09-04-2024 End: 09-04-2024 ambulatory 09/04/2024 11:15 AM EST Results Only Cardiology [address] [place] [address] dx: Palpitations; Family history of ischemic heart disease; Pure hypercholesterolemia; Raynaud's phenomenon without gangrene Cardiology Comment on above: dx: Palpitations; Family history of isch emic heart disease; Pure hypercholesterolemia; Raynaud's phenomenon without gangrene Start: 08-21-2024 DIABETES SCREEN DIABETES SCREEN [facility] Start: 06-06-2024 End: 06-06-2024 Patient encounter procedure 06/06/2024 2:40 PM EDT Office Visit Dermatology [address] [address] Carlton Pabon MD [address] [place] [address] skin check Dermatology Comment on above: skin check Start: 06-01-2024 End: 08-31-2024 25-hydroxyvitamin D3 [Mass/volume] in Serum or Plasma VITAMIN D 25 HYDROXY Lab Routine Vitamin D deficiency Expected: 06/01/2024, Expires: 08/31/2024 [facility] Comment on above: Expected: 06/01/2024, Expires: Start: 06-01-2024 End: 08-31-2024 CBC W Auto Differential panel - Blood COMPLETE BLOOD COUNT AND DIFFERENTIAL Lab Routine Encounter for therapeutic drug monitoring Expected: 06/01/2024, Expires: 08/31/2024 [facility] Work Phone: Comment on above: Expected: 06/01/2024, Expires: Start: 06-01-2024 End: 08-31-2024 Cobalamin (Vitamin B12) [Mass/volume] in Serum or Plasma VITAMIN B12 Lab Routine Memory impairment Expected: 06/01/2024, Expires: 08/31/2024 [facility] Comment on above: Expected: 06/01/2024, Expires: Start: 06-01-2024 End: 08-31-2024 Comprehensive metabolic 2000 panel - Serum or Plasma COMPREHENSIVE METABOLIC PANEL Lab Routine Encounter for therapeutic drug monitoring Expected: 06/01/2024, Expires: 08/31/2024 [facility] Comment on above: Expected: 06/01/2024, Expires: Start: 06-01-2024 End: 08-31-2024 Lipid 1996 panel - Serum or Plasma LIPID PANEL BASIC Lab Routine Screening for lipid disorders Expected: 06/01/2024, Expires: 08/31/2024 [facility] Comment on above: Expected: 06/01/2024, Expires: Start: 06-01-2024 End: 08-31-2024 Magnesium [Mass/volume] in Serum or Plasma MAGNESIUM Lab Routine Encounter for therapeutic drug monitoring Expected: 06/01/2024, Expires: 08/31/2024 [facility] Comment on above: Expected: 06/01/2024, Expires: Start: 06-01-2024 End: 08-31-2024 Thyrotropin [Units/volume] in Serum or Plasma THYROID STIMULATING HORMONE Lab Routine Memory impairment Expected: 06/01/2024, Expires: 08/31/2024 [facility] Comment on above: Expected: 06/01/2024, Expires: Start: 05-31-2024 End: 05-31-2024 Patient encounter procedure 05/31/2024 2:40 PM EDT Office Visit Internal Medicine [address] [id number] Sydnee Sumner APRN.TRACK REPAIR LABORER [address] [place] [id number] Physical [facility] [place] Comment on above: Physical Start: 05-16-2024 End: 05-16-2024 Patient encounter procedure 05/16/2024 11:40 AM EDT Office Visit Dermatology [facility] [address] [place], [place] [phone] Mamie Zaldivar PA-C [address] [place] [address] skin check Dermatology [facility] Comment on above: skin check Start: 04-30-2024 Covid-19 Vaccine () Covid-19 Vaccine () [facility] Start: 04-30-2024 Covid-19 Vaccine () Covid-19 Vaccine () [facility] Start: 04-30-2024 Influenza vaccination Influenza Vaccine (#1) [facility] Start: 02-27-2024 Influenza vaccination Influenza Vaccine (#1) [facility] Comment on above: Postponed from 04/30/2023 (Declined at t his time) Start: 08-30-2023 Behavioral Health Screening Behavioral Health Screening [facility] Start: 08-30-2023 Depression Assessment Depression Assessment [facility] Start: 07-12-2023 Hzv zoster vacc recombinant adjuvanted im njx ZOSTER VACCINE, RECOMBINANT (SHINGRIX) Immunization/Injection Routine Encounter for immunization Expected: 07/12/2023 [facility] Work Phone: Comment on above: Expected: 07/12/2023 Start: 06-30-2023 Mammography [facility] Start: 06-30-2023 Screening for malignant neoplasm of breast Mammogram Screening [facility] Start: 04-30-2023 Covid-19 Vaccine () Covid-19 Vaccine () [facility] Start: 04-30-2023 Influenza vaccination [facility] Start: 04-22-2023 End: 06-22-2023 25-hydroxyvitamin D3 [Mass/volume] in Serum or Plasma VITAMIN D 25 HYDROXY Lab Routine Vitamin D deficiency Expected: 04/22/2023, Expires: 06/22/2023 [facility] Work Phone: Comment on above: Expected: 04/22/2023, Expires: Start: 04-22-2023 HEPATITIS B (1 of 3 - 3-dose series) HEPATITIS B (1 of 3 - 3-dose series) [facility] Comment on above: Postponed from 1970 (Declined at t his time) Start: 04-22-2023 End: 06-22-2023 Lipid 1996 panel - Serum or Plasma LIPID PANEL BASIC Lab Routine Pure hypercholesterolemia Expected: 04/22/2023, Expires: 06/22/2023 [facility] Work Phone: Comment on above: Expected: 04/22/2023, Expires: 3 Start: 04-22-2023 SHINGRIX VACCINE (1 of 2) SHINGRIX VACCINE (1 of 2) [facility] Comment on above: Postponed from 2020 (Declined at t his time) Start: 01-27-2023 Adult depression screening assessment DEPRESSION SCREENING [facility] Start: 12-12-2022 Adult depression screening assessment DEPRESSION SCREENING [facility] Start: 10-02-2022 End: 12-02-2022 POLYMYOSITIS AND DERMATOMYOSITIS PANEL POLYMYOSITIS AND DERMATOMYOSITIS PANEL Lab Routine Positive (antinuclear antibody) Expected: 10/02/2022 (Approximate), Expires: 12/02/2022 [facility] Work Phone: Comment on above: Expected: 10/02/2022 (Approximate), Expi res: 12/02/2022 Start: 08-30-2022 DEPRESSION ASSESSMENT DEPRESSION ASSESSMENT [facility] Start: 07-02-2022 End: 09-01-2022 POLYMYOSITIS AND DERMATOMYOSITIS PANEL [facility] Work Phone: Comment on above: Expected: 07/02/2022, Expires: 3 Start: 06-12-2022 Mammography MAMMOGRAM [facility] Start: 04-30-2022 Influenza vaccination [facility] Start: 04-23-2022 Urine microalbumin profile [facility] Start: 04-22-2022 End: 06-22-2022 CBC W Auto Differential panel - Blood CBC + DIFF Lab Routine Encounter for long-term current use of medication Expected: 04/22/2022, Expires: 06/22/2022 [facility] Work Phone: Comment on above: Expected: 04/22/2022, Expires: 2 Start: 04-22-2022 End: 06-22-2022 Comprehensive metabolic 2000 panel - Serum or Plasma COMP METABOLIC PANEL Lab Routine Encounter for long-term current use of medication Expected: 04/22/2022, Expires: 06/22/2022 [facility] Work Phone: Comment on above: Expected: 04/22/2022, Expires: 2 Start: 04-22-2022 End: 06-22-2022 Lipid 1996 panel - Serum or Plasma LIPID PANEL BASIC Lab Routine Pure hypercholesterolemia Expected: 04/22/2022, Expires: 06/22/2022 [facility] Work Phone: Comment on above: Expected: 04/22/2022, Expires: 2 Start: 02-27-2022 End: 01-28-2023 US CAROTID ARTERIES [facility] US CAROTID ARTERIES [facility] Vascular Lab Routine Bruit Expected: 02/27/2022, Expires: 01/28/2023 [facility] Work Phone: Comment on above: Expected: 02/27/2022, Expires: 3 Start: 01-29-2022 End: 03-31-2022 DNA double strand Ab [Units/volume] in Serum by Immunoassay [facility] Work Phone: Comment on above: Expected: 01/29/2022, Expires: 2 Start: 01-29-2022 End: 03-31-2022 Urinalysis complete panel - Urine [facility] Work Phone: Comment on above: Expected: 01/29/2022, Expires: 2 Start: 01-28-2022 End: 03-30-2022 Comprehensive metabolic 2000 panel - Serum or Plasma COMP METABOLIC PANEL Lab Routine Mixed hyperlipidemia Expected: 01/28/2022, Expires: 03/30/2022 [facility] Work Phone: Comment on above: Expected: 01/28/2022, Expires: 2 Start: 01-28-2022 End: 03-30-2022 LIPID PANEL BASIC LIPID PANEL BASIC Lab Routine Mixed hyperlipidemia Expected: 01/28/2022, Expires: 03/30/2022 [facility] Work Phone: Comment on above: Expected: 01/28/2022, Expires: 2 Start: 01-14-2022 HPV TESTING HPV TESTING [facility] Start: 01-14-2022 PAP TESTING PAP TESTING [facility] Start: 01-14-2022 Screening for malignant neoplasm of cervix [facility] Start: 12-31-2021 End: 01-23-2023 Cta hrt cornry art/bypass grfts contrst 3d post CTA CORONARY W IVCON Radiology Routine ACS (acute coronary syndrome) (HCC) Expected: 12/31/2021, Expires: 01/23/2023 [facility] Work Phone: Comment on above: Expected: 12/31/2021, Expires: 3 Start: 12-12-2021 End: 02-11-2022 C reactive protein [Mass/volume] in Serum or Plasma [facility] Work Phone: Comment on above: Expected: 12/12/2021, Expires: 2 Start: 12-12-2021 End: 02-11-2022 Erythrocyte sedimentation rate [facility] Work Phone: Comment on above: Expected: 12/12/2021, Expires: 2 Start: 10-21-2021 Adult depression screening assessment DEPRESSION SCREENING [facility] Start: 08-30-2021 DEPRESSION ASSESSMENT DEPRESSION ASSESSMENT [facility] Start: 04-18-2021 COVID-19 VACCINE (3 - Booster for Pfizer series) COVID-19 VACCINE (3 - Booster for Pfizer series) [facility] Start: 01-11-2021 COVID-19 VACCINE (3 - Booster for Pfizer series) COVID-19 VACCINE (3 - Booster for Pfizer series) [facility] Start: 01-11-2021 COVID-19 VACCINE (3 - Pfizer series) COVID-19 VACCINE (3 - Pfizer series) [facility] Start: 2020 Pneumococcal Vaccine: 50+ (1 of 1 - PCV) Pneumococcal Vaccine: 50+ (1 of 1 - PCV) [facility] Start: 2020 SHINGRIX VACCINE (1 of 2) SHINGRIX VACCINE (1 of 2) [facility] Start: 2015 COLOGUARD (FIT-DNA) COLOGUARD (FIT-DNA) [facility] Start: [address] COLONOGRAPHY [facility] Start: 2015 FECAL OCCULT BLOOD FECAL OCCULT BLOOD [facility] Start: 2015 Screening for malignant neoplasm of colon [facility] Start: 2015 SIGMOIDOSCOPY SIGMOIDOSCOPY [facility] Start: 10-21-2007 Urine microalbumin profile DTAP,TDAP,TD (1 - Tdap) [facility] Start: 1989 Hepatitis B Vaccine (1 of 3 - 19+ 3-dose series) Hepatitis B Vaccine (1 of 3 - 19+ 3-dose series) [facility] Start: 1988 Anxiety Screening Anxiety Screening [facility] Start: 1988 Depression Screening Depression Screening [facility] Start: 1970 Hepatitis B Vaccine (1 of 3 - 3-dose series) Hepatitis B Vaccine (1 of 3 - 3-dose series) [facility] End: 07-02-2023 CBC W Auto Differential panel - Blood CBC + DIFF Lab Routine Positive (antinuclear antibody) Every 6 months for 2 Occurrences starting 07/02/2022 until 07/02/2023 [facility] Work Phone: Comment on above: Every 6 months for 2 Occurrences startin g 07/02/2022 until 07/02/2023 End: 07-02-2023 Complement C3 [Mass/volume] in Serum or Plasma C3 COMPLEMENT BLD Lab Routine Positive (antinuclear antibody) Every 6 months for 2 Occurrences starting 07/02/2022 until 07/02/2023 [facility] Work Phone: Comment on above: Every 6 months for 2 Occurrences startin g 07/02/2022 until 07/02/2023 End: 07-02-2023 Complement C4 [Mass/volume] in Serum or Plasma C4 COMPLEMENT BLD Lab Routine Positive (antinuclear antibody) Every 6 months for 2 Occurrences starting 07/02/2022 until 07/02/2023 [facility] Work Phone: Comment on above: Every 6 months for 2 Occurrences startin g 07/02/2022 until 07/02/2023 End: 07-02-2023 Comprehensive metabolic 2000 panel - Serum or Plasma COMP METABOLIC PANEL Lab Routine Positive (antinuclear antibody) Every 6 months for 2 Occurrences starting 07/02/2022 until 07/02/2023 [facility] Work Phone: Comment on above: Every 6 months for 2 Occurrences startin g 07/02/2022 until 07/02/2023 End: 12-10-2025 DBT Breast - bilateral screening DESTINEE SCREENING W PAULINO Radiology Routine Encounter for screening mammogram for breast cancer 1 Occurrences starting 11/10/2024 until 12/10/2025 [facility] Work Phone: Comment on above: 1 Occurrences starting 11/10/2024 until 12/10/2025 DBT Breast - bilater al screening DESTINEE SCREENING W PAULINO Radiology Routine Encounter for screening mammogram for breast cancer 11/20/2024 2:34 PM EDT [facility] Work Phone: End: 03-01-2025 ECG COMPLETE ECG COMPLETE ECG Routine Palpitations Family history of ischemic heart disease Pure hypercholesterolemia Raynaud's phenomenon without gangrene 1 Occurrences starting 03/01/2024 until 03/01/2025 [facility] Work Phone: Comment on above: 1 Occurrences starting 03/01/2024 until 03/01/2025 End: 09-02-2024 DESTINEE SCREENING DESTINEE SCREENING Radiology Routine Encounter for screening mammogram for breast cancer 1 Occurrences starting 08/04/2023 until 09/02/2024 [facility] Work Phone: Comment on above: 1 Occurrences starting 08/04/2023 until 09/02/2024 MG Breast Screening DESTINEE SCREENIN G Radiology Routine Encounter for screening mammogram for breast cancer 11/10/2023 3:38 PM EDT [facility] Work Phone: OUTSIDE VENDOR CARDI AC OUTPATIENT EXTENDED RHYTHM RECORDING (WITHOUT TELEMETRY) OUTSIDE VENDOR CARDIAC OUTPATIENT EXTENDED RHYTHM RECORDING (WITHOUT TELEMETRY) Holter Routine Palpitations Ordered: 12/24/2021 [facility] Work Phone: Comment on above: Ordered: 12/24/2021 OUTSIDE VENDOR CARDI AC OUTPATIENT EXTENDED RHYTHM RECORDING (WITHOUT TELEMETRY) OUTSIDE VENDOR CARDIAC OUTPATIENT EXTENDED RHYTHM RECORDING (WITHOUT TELEMETRY) Holter Routine Atypical chest pain Palpitations Ordered: 01/06/2022 [facility] Work Phone: Comment on above: Ordered: 01/06/2022 Patient Education [facility] Work Phone: Patient referral [facility] Work Phone: End: 07-30-2023 Screening mammography bi 2-view breast inc cad DESTINEE SCREENING Radiology Routine Encounter for screening mammogram for breast cancer 1 Occurrences starting 06/30/2022 until 07/30/2023 [facility] Work Phone: Comment on above: 1 Occurrences starting 06/30/2022 until 07/30/2023 SURGICAL PATHOLOGY S KIN ONLY [facility] Work Phone: Comment on above: Release Upon Ordering for 1 Occurrences starting 04/16/2023, 1 completed End: 07-02-2023 Urinalysis complete panel - Urine URINALYSIS, WITH MICROSCOPIC Lab Routine Positive (antinuclear antibody) Every 6 months for 2 Occurrences starting 07/02/2022 until 07/02/2023 [facility] Work Phone: Comment on above: Every 6 months for 2 Occurrences startin g 07/02/2022 until 07/02/2023 End: 05-20-2024 US ABD RIGHT UPPER QUADRANT US ABD RIGHT UPPER QUADRANT Radiology Routine Abdominal pain, RUQ (right upper quadrant) 1 Occurrences starting 04/21/2023 until 05/20/2024 [facility] Work Phone: Comment on above: 1 Occurrences starting 04/21/2023 until 05/20/2024 End: 02-10-2024 XR SHOULDER GENERAL 3V OR MORE AP/TRUE AP/OTHER RIGHT XR SHOULDER GENERAL 3V OR MORE AP/TRUE AP/OTHER RIGHT Radiology Routine Acute pain of right shoulder 1 Occurrences starting 01/11/2023 until 02/10/2024 [facility] Work Phone: Comment on above: 1 Occurrences starting 01/11/2023 until 02/10/2024 [facility] Immunizations Immunization Date Immunization Notes Care Provider Jone acevedo 04-22-2022 tetanus and diphther ia toxoids, adsorbed, preservative free, for adult use (2 Lf of tetanus toxoid and 2 Lf of diphtheria toxoid) Domonique Guzman MD Work Phone: [facility] 11-16-2020 COVID-19 vaccine, ag e 12+ yr (PFIZER-BIONTECH - PURPLE TOP) Nessa Gonzáles APRN.[facility] Work Phone: [facility] Work Phone: 10-26-2020 COVID-19 vaccine, ag e 12+ yr (PFIZER-BIONTECH - PURPLE TOP) Nessa Gonzáles APRN.[facility] Work Phone: [facility] Work Phone: 05-13-2017 influenza virus vaccine, unspecified formulation Sydnee Sumner BREED TO WEAN PRODUCTION 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 2018 Unknown MMO MMO [employer] [id number] 2018-Present [phone] [address] [place] [address] PPO [id number] 2018 Unknown [id number] 2018 Unknown [id number] Unknown [id number] Unknown [id number] Unknown [id number] Unknown [id number] Social History Date Type Detail Facility Start: 11-30-2021 End: 09-08-2022 Tobacco smoking status NHIS Unknown if ever smoked [facility] Start: 1970 Sex Assigned At Female W [facility] Start: 01-24-2015 End: 04-02-2025 Tobacco smoking status NHIS Never smoked tobacco [facility] Start: 06-02-2021 End: 12-20-2024 Alcohol intake Current drinker of alcohol (finding) [facility] Start: 12-26-2019 History SDOH Alcohol Frequency 3 [facility] Start: 12-26-2019 End: 08-12-2021 History SDOH Alcohol Std Drinks 1 [facility] Start: 12-26-2019 History SDOH Social Connections Phone 5 [facility] Start: 12-26-2019 History SDOK Social Connections Get Together 4 [facility] Start: 12-26-2019 End: 08-12-2021 History SDOH Social Connections Membership 2 [facility] Start: 12-25-2019 Education 21 [facility] Start: 1970 Sex Assigned At Not on file [facility] Start: 07-14-2021 End: 07-02-2022 Exposure to SARS-CoV-2 (event) Not sure [facility] Work Phone: Start: 01-24-2015 Tobacco use and exposure Smoke less tobacco non-user [facility] Start: 12-25-2019 End: 02-23-2023 History of Social function [facility] Start: 12-25-2019 End: 02-23-2023 Social connection and isolation panel [facility] Do you belong to any clubs or organizations such as rastafarian groups, unions, fraternal or athletic groups, or school groups? No [facility] Attends Club or Organization Meetings Not on file [facility] Are you now , , , , never or living with a partner? [facility] How often to you hav e a drink containing alcohol? 2-4 times a month [facility] How many standard dr inks containing alcohol do you have on a typical day? 1 or 2 [facility] How often do you hav e 6 or more drinks on 1 occasion? Never [facility] Do you feel stress - tense, restless, nervous, or anxious, or unable to sleep at night because your mind is troubled all the time - these days [OSQ] Not at all [facility] (I/We) worried jam er (my/our) food would run out before (I/we) got money to buy more. Never true [facility] Do you feel stress - tense, restless, nervous, or anxious, or unable to sleep at night because your mind is troubled all the time - these days [OSQ] Only a little [facility] Start: 11-10-2024 Sex Female (finding) [place] [facility] Goals Date Patient Goal Desired Activity /State Personal health goal Functional Status Date Assessment Result Facility 11-09-2017 Are you deaf, or do you have serious difficulty hearing No 11/09/2017 5:19 PM EDT Domonique Guzman MD No [facility] 11-09-2017 Are you blind, or do you have serious difficulty seeing, even when wearing glasses No 11/09/2017 5:19 PM EDT Domonique Guzman MD No [facility] 11-09-2017 Do you have serious difficulty walking or climbing stairs No 11/09/2017 5:19 PM EDT Domonique Guzman MD No [facility] 11-09-2017 Do you have difficul ty dressing or bathing No 11/09/2017 5:19 PM EDT Domonique Guzman MD No [facility] 11-09-2017 Because of a physica l, mental, or emotional condition, do you have difficulty doing errands alone such as visiting a physician's office or shopping No 11/09/2017 5:19 PM EDT Domonique Guzman MD No [facility] Mental Status Date Assessment Result Facility 01-05-2022 Cognitive function Level Of Cons ciousness Awake;Alert;Appropriate;Fol lows Commands [facility] Work Phone: 12-19-2021 Cognitive function Voice/Name [facility] Work Phone: 11-30-2021 Cognitive function Voice/Name [facility] Work Phone: 11-09-2017 Because of a physica l, mental, or emotional condition, do you have serious difficulty concentrating, remembering, or making decisions No 11/09/2017 5:19 PM EDT Domonique Guzman MD [facility] Clinical Notes 01-08-2015 to 04-02-2025 Note Date & Type Note Facility 04-02-2025 Discharge summary [facility] 04-02-2025 Radiology Diagnostic study note [facility] Imaging Services [address], [place] [id number] Spine Cervical without Contras MR#: [id number] Acct: [id number] Name: JUSTINE BERGERON Rep #: [id number] : 1970 F 54 From: Jefferson Wahl MD PCP: Dr. Domonique Guzman MD Status: RE G ER Study:Spine Cervical without Contras Date of Exam: 04/02/25 Exam# [id number] Ordering Dr: Silvia Cohn MD PROCEDURE: SPINE [...] Cohn MD; Dr. Domonique Guzman MD ~ Financial Processing Clerk: Signed [facility] 04-02-2025 Radiology Diagnostic study note [facility] Imaging Services [address] [place] [id number] Brain/Head without Contrast MR#: [id number] Acct: [id number] Name: JUSTINE BERGERON Rep #: [id number] : 1970 F 54 From: Jefferson Wahl MD PCP: Dr. Domonique Guzman MD Status: RE G ER Study:Brain/Head without Contrast Date of Exa m: 04/02/25 Exam# [id number] Ordering Dr: Silvia Cohn MD PROCEDURE: BRAIN/HEAD [...] [facility] CC: Dr. Samson Conh MD; Dr. Domonique Guzman MD ~ Financial Processing Clerk: Signed [facility] 04-02-2025 Discharge summary Note Date/Time April 02, 2025 5:51pm [facility] Medical Records Department [address] [place] [address] Emergency Department Summary 04/02/25 MR#: [id number] Acct: [id number] Name: JUSTINE BERGERON Rep #:[id number] : 1970 54 From: Samson Cohn MD [...] tingling weakness in her arm or leg. [facility] Medical History GERD (gastroesophageal reflux disease) Fibromyalgia [...] 1 current occupational status: employed current occupation: [employer] [place] pets and animals: Yes Smoking Status: Never [...] 1 Week if not improving Print Language: Macedonian Disposition Disposition: Home, Self Care What to do if you have Problems For any increased pain, shortness of breath, bleeding, nausea or vomiting, chestpain, or any unexpected problems, contact your Primary Care Provider. Call [facility] ([phone]) or report to the closest Emergency Room. Call 911 if necessary. 04/02/25 1751 <Electronically signed by Samson Cohn MD> Cosigner Signature (if applicable): CC: Dr. Domonique Guzman MD ~ Signed [facility] Work Phone: 1(858) 804-483506-25-2025 Telephone encounter Note* Telephone Encounter - Luis Ricks - 02/21/2025 3:07 PM EDT Call from pharmacy requesting refill. Requested Prescriptions Pending Prescriptions Disp Refills rosuvastatin (CRESTOR) 20 mg tablet 90 tablet 3 Sig: Take 1 tablet by mouth daily at bedtime. Patient last seen 12/20/24 Luis Ricks [facility]06-25-2025 Miscellaneous Notes* Telephone Encounter - Luis Ricks - 02/21/2025 3:07 PM EDT Call from pharmacy requesting refill. Requested Prescriptions Pending Prescriptions Disp Refills rosuvastatin (CRESTOR) 20 mg tablet 90 tablet 3 Sig: Take 1 tablet by mouth daily at bedtime. Patient last seen 12/20/24 Luis Ricks documented [facility] History of Present illness Narrative* Carlton Pabon [...] Past Histories independently gathered by the clinical operations support representative and the remaining scribed note accurately describes my personal service to the patient. Carlton Pabon MD January 03, 2025 documented in this encounterMer[facility]05-07-2025 NoteHNO ID: [id number] Author: CARLTON PABON MD Service: ? Author [...] Past Histories independently gathered by the clinical operations support representative and the remaining scribed note accurately describes my personal service to the patient. Carlton Pabon MD [facility] 03[facility]04-23-[facility]25 NoteHNO ID: [id number] Author: JIMMY QUINTANA MD Service: ? Author Type: Physician Type: Progress Notes Filed: 12/20/2024 11:03 Note Text: Heart, Vascular and Thoracic Lily Dixie Matthew Department of Cardiovascular Medicine SECTION OF INTERVENTIONAL CARDIOLOGY OUTPATIENT VISIT DATE December 20, 2024 OUTPATIENT VISIT TYPE ESTABLISHED PRIMARY CARE PHYSICIAN: Domonique Guzman [address] [place] [address] REFERRING PHYSICIAN: Jimmy Quintana [address] [facility] [address] CHIEF COMPLAINT: No chief complaint on file. [...] Mother 67 Cancer Father Heart Father 64 SD coronary stent Heart Brother 37 SD 3 stents Hypertension Brother other (Hemophelia) Brother [...] No STEMI Confirmed by TEJAL ISABEL MD ([id number]) on 09/22/2024 7:29:15 PM IMPRESSION: Ms. Bergeron [...] PLAN AND RECOMMENDATIONS: cont current plan CONTACT INFORMATION:[facility]04-23-2025 History of Present illness Narrative* Jimmy Quintana MD - 12/20/2024 10:35 AM EDT Images from the original note were not included. Heart, Vascular and Thoracic Lily Dixie Matthew Department of Cardiovascular Medicine SECTION OF INTERVENTIONAL CARDIOLOGY OUTPATIENT VISIT DATE December 20, 2024 OUTPATIENT VISIT TYPE ESTABLISHED PRIMARY CARE PHYSICIAN: Domonique Guzman [address] [place] [address] REFERRING PHYSICIAN: Jimmy Quintana [address] [facility] [address] CHIEF COMPLAINT: No chief complaint on file. [...] Mother 67 Cancer Father Heart Father 64 SD coronary stent Heart Brother 37 SD 3 stents Hypertension Brother other (Hemophelia) Brother [...] No STEMI Confirmed by TEJAL ISABEL MD ([id number]) on 09/22/2024 7:29:15 PM IMPRESSION: Ms. Bergeron [...] current plan CONTACT INFORMATION: documented in this encounterMer[facility]04-11-2025 Progress note* Result Encounter Note - Maryam Emmanuel APRN.CNS - 12/08/2024 4:28 PM EDT Benign finding, 1 year follow-up screening [facility]04-11-2025 Miscellaneous Notes* Result Encounter Note - Maryam Emmanuel APRN.CNS - 12/08/2024 4:28 PM EDT Benign finding, 1 year follow-up screening documented in this encounterMer[facility]03-24-2025 History of Present illness Narrative* Victorino Bowie [...] PATIENT PRESENTS WITH AN IMPLANTABLE OR ATTACHED VALVE TECHNICIAN: No RADIOLOGY DEPARTMENT: Mammography PERIPHERAL IV DATA: Not applicable SIGNED BY: Sweetie Penny November 20, 2024 3:16 PM documented in this encounterMercer County [facility] Hospital03-24-2025 NoteHNO ID: [id number] Author: VICTORINO BOWIE Mammo Tech Service: ? Author Type: Hydraulic Lift Operator Type: Progress Notes Filed: 11/20/2024 15:17 [...] PATIENT PRESENTS WITH AN IMPLANTABLE OR ATTACHED VALVE TECHNICIAN: No RADIOLOGY DEPARTMENT: Mammography PERIPHERAL IV DATA: Not applicable SIGNED BY: Abbi Pennyo Tech November 20, 2024 3:16 [facility]03-03-2025 Evaluation note* Diagnosis Onset Date Resolution Status Admit Date Atrophic vaginitis acute October 30, 2024 8:11am Encounter for routine gynecological examination noneactive October 30, 2024 8:11am Vaginal odor noneactive October 30 8:11am [facility] Work Phone: 1(553) 170-440002-05-2025 Telephone encounter Note* Telephone Encounter - Jing [...] daily Patient last seen 09/20/2024 Jing Sagastume [facility]02-05-2025 Miscellaneous Notes* Telephone Encounter - Jing Sagastume [...] seen 09/20/2024 Jing Sagastume documented in this encounterMercer County [facility] Hospital02-03-2025 History of Present illness Narrative* Ollie Wilcox, [...] PATIENT PRESENTS WITH AN IMPLANTABLE OR ATTACHED VALVE TECHNICIAN: No CREATININE: Creatinine Date Value Ref Range [...] Discontinued PROCEDURE TYPE: NM Stress: 14.1 mCi [id number]-Vdrnxrc was administered IV for Rest Imaging at 08:01 by MM. 34.5 mCi Aj07u-Sbwzsbl was administered IV for Stress Imaging at 08:56 by . PATIENT DISCHARGED TO: Ambulatory patient, left NH department area. Is this a therapy: No A Diagnostic radioactive procedure has taken place, with no further precautions necessary other than routine body substance precautions. More information regarding radiation safety can be found usingAmSafes link: [email or web address] SIGNATURE: DOLORES Etienne PATIENT NAME: Justine Bergeron DATE: October 02, 2024 TIME: 8:29 AM PAGER/CONTACT #: documented in this encounterMercer County Community Hospital02-03-2025 NoteHNO ID: [id number] Author: OLLIE WILCOX CT Service: Nuclear Medicine [...] PATIENT PRESENTS WITH AN IMPLANTABLE OR ATTACHED VALVE TECHNICIAN: No CREATININE: Creatinine Date Value Ref Range [...] Discontinued PROCEDURE TYPE: NM Stress: 14.1 mCi Hi54j-Drnvtnl was administered IV for Rest Imaging at 08:01 by MM. 34.5 mCi Ga26q-Butrvmc was administered IV for Stress Imaging at [...] October 02, 2024 TIME: 8:29 AM PAGER/CONTACT #[facility] [id number] Telephone encounter Note * Telephone Encounter - Liberty Hubbard RN - 09/29/2024 12:18 PM EST Spoke to pt regarding reminder and instructions for stress test on Wednesday. This included where to check in, length of test and no caffeine for 24 hours prior to test. [facility]01-31-2025 Miscellaneous Notes* Telephone Encounter - Liberty Hubbard RN - 09/29/2024 12:18 PM EST Spoke to pt regarding reminder and instructions for stress test on Wednesday. This included where to check in, length of test and no caffeine for 24 hours prior to test. documented in this encounterMercer County Community Hospital01-24-2025 NoteHNO ID: [id number] Author: ODALIS FIGUEROA RT(R) Service: ? Author [...] PATIENT PRESENTS WITH AN IMPLANTABLE OR ATTACHED VALVE TECHNICIAN: No RADIOLOGY DEPARTMENT: General X-ray: Exam(s) Completed: Chest X-Ray PERIPHERAL IV DATA: Not applicable SIGNED BY: RT Zeb(R) September 22, 2024 8:06 PMAdena P[facility] Medical [id number] Telephone encounter Note* Telephone Encounter - Jing Sagastume - 09/22/2024 12:34 PM EST Call from patient with concern about the EKG results in MyChart. Patient can be reached at [phone] [facility]01-24-2025 Miscellaneous Notes* Telephone Encounter - Jing Sagastume - 09/22/2024 12:34 PM EST Call from patient with concern about the EKG results in MyChart. Patient can be reached at [phone] documented in this encounterMercer County [facility] Hospital01-24-2025 Telephone encounter Note * Telephone Encounter - Luis Ricks - 09/22/2024 9:35 AM EST Call from patient requesting refill. Requested Prescriptions Pending Prescriptions Disp Refills rosuvastatin (CRESTOR) 20 mg tablet 90 tablet 3 Sig: Take 1 tablet by mouth daily at bedtime. Patient last seen 09/20/24 Luis Velazquezoinerendira Ricks [facility]01-24-2025 Miscellaneous Notes* Telephone Encounter - Luis Ricks - 09/22/2024 9:35 AM EST Call from patient requesting refill. Requested Prescriptions Pending Prescriptions Disp Refills rosuvastatin (CRESTOR) 20 mg tablet 90 tablet 3 Sig: Take 1 tablet by mouth daily at bedtime. Patient last seen 09/20/24 Lusi Ricks documented in this encounterMercer County Community Hospital01-22-2025 NoteHNO ID: [id number] Author: JIMMY QUINTANA MD Service: ? Author Type: Physician Type: Progress Notes Filed: 09/20/2024 11:15 Note Text: Heart, Vascular and Thoracic Lily Dixie Matthew Department of Cardiovascular Medicine SECTION OF INTERVENTIONAL CARDIOLOGY OUTPATIENT VISIT DATE September 20, 2024 OUTPATIENT VISIT TYPE ESTABLISHED PRIMARY CARE PHYSICIAN: Domonique Guzman [address] [place] [address] REFERRING PHYSICIAN: Jimmy Quintana [address] [facility] [address] CHIEF COMPLAINT: No chief complaint on file. [...] Mother 67 Cancer Father Heart Father 64 SD coronary stent Heart Brother 37 SD 3 stents Hypertension Brother other (Hemophelia) Brother [...] Doesn't exercise d/t fear of palp and SD Whooshing in left neck ECG normal x [...] pulses, tr edema Neuro: (more content not included)...[facility]01-22-2025 History of Present illness Narrative* Jimmy Quintana MD - 09/20/2024 10:29 AM EST Images from the original note were not included. Heart, Vascular and Thoracic Lily Dixie Matthew Department of Cardiovascular Medicine SECTION OF INTERVENTIONAL CARDIOLOGY OUTPATIENT VISIT DATE September 20, 2024 OUTPATIENT VISIT TYPE ESTABLISHED PRIMARY CARE PHYSICIAN: Domonique Guzman [address] [place] [address] REFERRING PHYSICIAN: Jimmy Quintana [address] [facility] [address] CHIEF COMPLAINT: No chief complaint on file. [...] Mother 67 Cancer Father Heart Father 64 SD coronary stent Heart Brother 37 SD 3 stents Hypertension Brother other (Hemophelia) Brother [...] Doesn't exercise d/t fear of palp and SD Whooshing in left neck ECG normal x [...] 3 mos CONTACT INFORMATION: documented in this encounterMercer County Community Hospital01-17-2025 Telephone encounter Note * Telephone Encounter - Domonique Guzman MD - 09/15/2024 1:13 PM EST The following approved medication requests have been transmitted electronically. Requested Prescriptions Signed Prescriptions Disp Refills famotidine (PEPCID) 20 mg tablet 180 tablet 3 Sig: Take 1 tablet by mouth two times a day. Authorizing Provider: DOMONIQUE GUZMAN MD [facility]01-17-2025 Miscellaneous Notes* Telephone Encounter - Domonique Guzman [...] 15, 2024 7:58 AM documented in this encounterMercer County Community Hospital01-17-2025 NoteHNO ID: [id number] Author: NOHEMY HILL DO Service: ? Author [...] Past Histories independently gathered by the clinical operations support representative and the remaining scribed note accurately describes my personal service to the patient. Nohemy Hill, [facility]01-17-2025 History of Present illness Narrative* Nohemy [...] Past Histories independently gathered by the clinical operations support representative and the remaining scribed note accurately describes my personal service to the patient. Nohemy Hill DO documented in this encounterMercer County Community Hospital01-17-2025 Telephone encounter Note * Telephone Encounter - [...] Mederos LPN September 15, 2024 7:58 AM [facility]01-10-2025 Telephone encounter Note* Telephone Encounter - Jing [...] up with Dr. Quintana 09/20/2024 Jing Sagastume [facility]01-10-2025 Miscellaneous Notes* Telephone Encounter - Jing Sagastume [...] Quintana 09/20/2024 Jing Sagastume documented in this encounterMercer County Community Hospital01-09-2025 Telephone encounter Note * Telephone Encounter - [...] seen 09/02/23; next appt 09/20/24 Luis Ricks [facility]01-09-2025 Miscellaneous Notes* Telephone Encounter - Luis Ricks [...] appt 09/20/24 Luis Ricks documented in this encounterMercer County Community Hospital01-07-2025 Telephone encounter Note * Telephone Encounter - Luis Ricks - 09/05/2024 3:12 PM EST Pt called to have lab orders submitted for her upcoming appt on 09/19/24 Pt will have labs completed at [facility] once she sees the orders.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 Department of Cardiovascular Medicine SECTION OF INTERVENTIONAL CARDIOLOGY OUTPATIENT VISIT DATE December 24, 2021 OUTPATIENT VISIT TYPE CONSULTATION PRIMARY CARE PHYSICIAN: Domonique Guzman [address] [place] [address] REFERRING PHYSICIAN Maryam Emmanuel [address] [facility] [address] CHIEF COMPLAINT: Chest pain Irregular heart beat [...] is a 51 year old female from [place], [place] who is seen today for evaluation [...] to the emergency room and went to [place] ED. However, no records are available from [...] Units 12/30/2020 Sm Antibody <1.0 AI <0.2 CONSUMER SERVICES CONSULTANT Antibody <1.0 AI <0.2 SSA Antibody <1.0 AI 0.2 SSB Antibody <1.0 AI 1.3 (H) Centromere Ab <1.0 AI <0.2 Scleroderma Ab, IgG <1.0 AI <0.2 Corinne 1 Antibody <1.0 AI <0.2 Ribosomal CONSUMER SERVICES CONSULTANT <1.0 AI <0.2 Chromatin Antibody <1.0 AI [...] Mother Stroke Mother carotid disease Heart Father SD Hypertension Maternal Grandmother Heart Maternal Grandfather Diabetes Maternal Grandfather Breast Cancer Paternal Grandmother Heart Brother SD Hypertension Brother ALLERGIES: ALLERGIES Allergen Reactions Levaquin [...] getting p-ANCA but will defer to her clinic director I personally interviewed, confirmed and edited the above information as obtained by others. CONTACT INFORMATION: documented in this encounterMercer County Community Hospital04-27-2022 Miscellaneous Notes* Telephone Encounter - Theresa Ty LPN - 12/24/2021 9:28 AM EDT rec'd results for feli from [facility] pt completed. Pt has appt with Dr. Quintana 12/24/21 this report was faxed to his office on 12/23/21. documented in this encounterMercer County Community Hospital04-15-2022 History of Present illness Narrative* Maryam Emmanuel APRN.NAIL FEEDER - 12/12/2021 9:48 AM EDT SUBJECTIVE: DTAP,TDAP,TD(1 [...] department follow[facility]. [facility] [...] Notes her brother had premature heart disease, SD / CAD age 37 years. Her most [...] 12/30/2020 08/21/2021 Sm Antibody <1.0 AI <0.2 CONSUMER SERVICES CONSULTANT Antibody <1.0 AI <0.2 SSA Antibody <1.0 AI 0.2 SSB Antibody <1.0 AI 1.3 (H) Centromere Ab <1.0 AI <0.2 Scleroderma Ab, IgG <1.0 AI <0.2 Corinne 1 Antibody <1.0 AI <0.2 Ribosomal CONSUMER SERVICES CONSULTANT <1.0 AI <0.2 Chromatin Antibody <1.0 AI [...] visit today. Recommend she is scheduled with chief catalyst operator for further evaluation and recommendations, Dr. 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 Will check CRP and ESR today. - CONSULT TO RHEUM/IMMUN DISEASE - [facility] BIG STONE GAPERGREN - C-REACTIVE PROTEIN (CRP) 9. Pure hypercholesterolemia - ICD9: 272.0, ICD10: E78.00 Continue with current treatment unchanged for now. - ROSUVASTATIN 10 MG TABLET 6 mo follow up MD Maryam Arredondo APRN.CNS Medical Decision Making: Problems: Moderate: New problem with uncertain prognosis Data: Unique test(s) ordered: 2 Risk: Moderate: Drug management Medical Decision Making Level: 4 - Moderate documented in this encounterMercer County Community Hospital04-03-2022 History of Present illness Narrative* Nessa Gonzáles APRN.ANALI - 11/30/2021 10:58 AM EDT [facility] Triage Note: Patient presented to [facility] for evaluation of chest pain. She has had this since Wednesday. She denies cough or congestion. She has had some joint pain and swelling and body aches. She is concerned she may have lupus. She is advised we cannot do a chest xray today and [facility] cannot evaluate chest pain. She elects to go to [facility] ER. Nessa Gonzáles APRN.ANALI documented in this encounterMercer County Community Hospital01-05-2022 NotePap Smear Specimen AdequacyJanuary 2021 12:51pmCommentSatisfactory for evaluation. Endocervical and/or squamous metaplasticcells (endocervical component)are present.[facility] A#[id number] Cross Hospital Work Phone: Comment on above:Satisfactory for evaluation. Endocervical and/or squamous metaplasticcells (endocervical component)are present.09-03-2021 NotePap Smear Specimen AdequacyJanuary 2021 12:51pm CommentSatisfactory for evaluation. Endocervical and/or squamous metaplasticcells (endocervical component)are present.[facility] A#[id number] Cross Hospital Work Phone: Comment on above:Satisfactory for evaluation. Endocervical and/or squamous metaplasticcells (endocervical component)are present.09-03-2021 NotePap Smear Specimen AdequacyJanuary 2021 12:51pm CommentSatisfactory for evaluation. Endocervical and/or squamous metaplasticcells (endocervical component)are present.[facility] A#[id number] Cross Hospital Work Phone: Comment on above:Satisfactory for evaluation. [...] 13, 2021 6:03 PM documented in this encounterMercer County Community Hospital05-12-2015 History of Past illness Narrative* Problem Noted Date Resolved Date Dysuria 01/08/2015 10/14/2015 Bilateral flank pain 01/08/2015 10/14/2015 Vaginal discharge 01/08/2015 10/14/2015 Epigastric pain 06/12/2013 10/14/2015 Other and unspecified hyperlipidemia 01/01/2009 10/14/2015 Overview: LDl 142, HDL 55, TG 64 in 01-05: rec dietary discretion (consider statins if no wt loss) Last Assessment & Plan: Component Latest Ref Rng 11/27/2009 Triglyceride, [place] 30 - 200 mg/dL 56 Cholesterol, [place] 0 - 200 mg/dL 192 HDL Chol, [place] 40 - 60 mg/dL 49 VLDL Chol, [place] 5 - 40 mg/dL 11 LDL Chol, [place] 0 - 129 mg/dL 132 (H) TC HDL Risk, [place] 0.0 - 5.0 3.9 TSH, [place] 0.400 [...] monitor 2-06 per outside records (Lori in [facility]) Lori 07-08-06 ([phone]): reports SVT with short PA responsive to [...] of this encounter (statuses as of 11/30/2021) [facility] of Past illness Narrative* Problem Noted [...] Plan: Component Latest Ref Rng 11/27/2009 Triglyceride, [place] 30 - 200 mg/dL 56 Cholesterol, [place] 0 - 200 mg/dL 192 HDL Chol, [place] 40 - 60 mg/dL 49 VLDL Chol, [place] 5 - 40 mg/dL 11 LDL Chol, [place] 0 - 129 mg/dL 132 (H) TC HDL Risk, [place] 0.0 - 5.0 3.9 TSH, [place] 0.400 - 5.500 uIU/mL 2.15 Noted around [...] monitor 2-06 per outside records (Lori in [facility]) Lori 07-08-06 ([phone]): reports SVT with short PA responsive to [...] of this encounter (statuses as of 12/12/2021) [facility] of Past illness Narrative* Problem Noted [...] 129 mg/dL 132 (H) TC HDL Risk, [place] 0.0 - 5.0 3.9 TSH, [place] 0.400 [...] monitor 2-06 per outside records (Lori in [facility]) Lori 07-08-06 ([phone]): reports SVT with short PA responsive to [...] of this encounter (statuses as of 12/24/2021) [facility] of Past illness Narrative* Problem Noted [...] Plan: Component Latest Ref Rng 11/27/2009 Triglyceride, [place] 30 - 200 mg/dL 56 Cholesterol, [place] 0 - 200 mg/dL 192 HDL Chol, [place] 40 - 60 mg/dL 49 VLDL Chol, [place] 5 - 40 mg/dL 11 LDL Chol, [place] 0 - 129 mg/dL 132 (H) TC HDL Risk, [place] 0.0 - 5.0 3.9 TSH, [place] 0.400 [...] monitor 2-06 per outside records (Lori in [facility]) Milandomingo 07-08-06 ([phone]): reports SVT with short PA responsive to [...] of this encounter (statuses as of 12/24/2021) [facility] of [facility] illness Narrative* Problem Noted [...] Plan: Component Latest Ref Rng 11/27/2009 Triglyceride, [place] 30 - 200 mg/dL 56 Cholesterol, [place] 0 - 200 mg/dL 192 HDL Chol, [place] 40 - 60 mg/dL 49 VLDL Chol, [place] 5 - 40 mg/dL 11 LDL Chol, [place] 0 - 129 mg/dL 132 (H) TC HDL Risk, [place] 0.0 - 5.0 3.9 TSH, [place] 0.400 - 5.500 uIU/mL 2.15 Noted around [...] monitor - per outside records (Lori in [facility]) Lori 07-08-06 ([phone]): reports SVT with short PA responsive to [...] of this encounter (statuses as of 12/25/2021) [facility] of [facility] illness Narrative* Problem Noted [...] 0 - 200 mg/dL 192 HDL Chol, [place] 40 - 60 mg/dL 49 VLDL Chol, [place] 5 - 40 mg/dL 11 LDL Chol, [place] 0 - 129 mg/dL 132 (H) TC HDL Risk, [place] 0.0 - 5.0 3.9 TSH, [place] 0.400 - 5.500 uIU/mL 2.15 Noted around [...] monitor 2-06 per outside records (Lori in [facility]) Lori 07-08-06 ([phone]): reports SVT with short PA responsive to [...] of this encounter (statuses as of 12/26/2021) [facility] of [facility] illness Narrative* Problem Noted [...] Plan: Component Latest Ref Rng 11/27/2009 Triglyceride, [place] 30 - 200 mg/dL 56 Cholesterol, [place] 0 - 200 mg/dL 192 HDL Chol, [place] 40 - 60 mg/dL 49 VLDL Chol, [place] 5 - 40 mg/dL 11 LDL Chol, [place] 0 - 129 mg/dL 132 (H) TC HDL Risk, [place] 0.0 - 5.0 3.9 TSH, [place] 0.400 - 5.500 uIU/mL 2.15 Noted around [...] monitor 2-06 per outside records (Lori in [facility]) Lori 07-08-06 ([phone]): reports SVT with short PA responsive to [...] of this encounter (statuses as of 01/01/2022) [facility] Narrative* Problem Noted [...] Plan: Component Latest Ref Rng 11/27/2009 Triglyceride, [place] 30 - 200 mg/dL 56 Cholesterol, [place] 0 - 200 mg/dL 192 HDL Chol, [place] 40 - 60 mg/dL 49 VLDL Chol, [place] 5 - 40 mg/dL 11 LDL Chol, [place] 0 - 129 mg/dL 132 (H) TC HDL Risk, [place] 0.0 - 5.0 3.9 TSH, [place] 0.400 - 5.500 uIU/mL 2.15 Noted around [...] monitor 2-06 per outside records (Lori in [facility]) Lori 07-08-06 ([phone]): reports SVT with short PA responsive to [...] of this encounter (statuses as of 01/06/2022) [facility] Narrative* Problem Noted [...] 0 - 200 mg/dL 192 HDL Chol, [place] 40 - 60 mg/dL 49 VLDL Chol, [place] 5 - 40 mg/dL 11 LDL Chol, [place] 0 - 129 mg/dL 132 (H) TC HDL Risk, [place] 0.0 - 5.0 3.9 TSH, [place] 0.400 - 5.500 uIU/mL 2.15 Noted around [...] monitor 2-06 per outside records (Lori in [facility]) Lori 07-08-06 ([phone]): reports SVT with short PA responsive to [...] of this encounter (statuses as of 01/15/2022) [facility] Narrative* Problem Noted [...] [place] 30 - 200 mg/dL 56 Cholesterol, [place] 0 - 200 mg/dL 192 HDL Chol, [place] 40 - 60 mg/dL 49 VLDL Chol, [place] 5 - 40 mg/dL 11 LDL Chol, [place] 0 - 129 mg/dL 132 (H) TC HDL Risk, [place] 0.0 - 5.0 3.9 TSH, [place] 0.400 - 5.500 uIU/mL 2.15 Noted around [...] monitor 2- per outside records (Lori in [facility]) Lori 07-08-06 ([phone]): reports SVT with short PA responsive to [...] of this encounter (statuses as of 01/28/2022) [facility] Narrative* Problem Noted [...] [place] 30 - 200 mg/dL 56 Cholesterol, [place] 0 - 200 mg/dL 192 HDL Chol, [place] 40 - 60 mg/dL 49 VLDL Chol, [place] 5 - 40 mg/dL 11 LDL Chol, [place] 0 - 129 mg/dL 132 (H) TC HDL Risk, [place] 0.0 - 5.0 3.9 TSH, [place] 0.400 [...] monitor 2-06 per outside records (Lori in [facility]) Lori 07-08-06 ([phone]): reports SVT with short PA responsive to [...] of this encounter (statuses as of 01/29/2022) [facility] Narrative* Problem Noted [...] 5 - 40 mg/dL 11 LDL Chol, [place] 0 - 129 mg/dL 132 (H) TC HDL Risk, [place] 0.0 - 5.0 3.9 TSH, [place] 0.400 - 5.500 uIU/mL 2.15 Noted around [...] monitor 2-06 per outside records (Lori in [facility]) Lori 07-08-06 ([phone]): reports SVT with short PA responsive to [...] of this encounter (statuses as of 01/30/2022) [facility] Narrative* Problem Noted [...] Plan: Component Latest Ref Rng 11/27/2009 Triglyceride, [place] 30 - 200 mg/dL 56 Cholesterol, [place] 0 - 200 mg/dL 192 HDL Chol, [place] 40 - 60 mg/dL 49 VLDL Chol, [place] 5 - 40 mg/dL 11 LDL Chol, [place] 0 - 129 mg/dL 132 (H) TC HDL Risk, [place] 0.0 - 5.0 3.9 TSH, [place] 0.400 [...] monitor 2-06 per outside records (Lori in [facility]) Lori 07-08-06 ([phone]): reports SVT with short PA responsive to [...] of this encounter (statuses as of 02/04/2022) [facility] Narrative* Problem Noted [...] 40 - 60 mg/dL 49 VLDL Chol, [place] 5 - 40 mg/dL 11 LDL Chol, [place] 0 - 129 mg/dL 132 (H) TC [...] monitor 2-06 per outside records (Lori in [facility]) Lori 07-08-06 ([phone]): reports SVT with short PA responsive to [...] of this encounter (statuses as of 02/17/2022) [facility] Narrative* Problem Noted [...] Plan: Component Latest Ref Rng 11/27/2009 Triglyceride, [place] 30 - 200 mg/dL 56 Cholesterol, [place] 0 - 200 mg/dL 192 HDL Chol, [place] 40 - 60 mg/dL 49 VLDL Chol, [place] 5 - 40 mg/dL 11 LDL Chol, [place] 0 - 129 mg/dL 132 (H) TC HDL Risk, [place] 0.0 - 5.0 3.9 TSH, [place] 0.400 - 5.500 uIU/mL 2.15 Noted around [...] monitor 2-06 per outside records (Lori in [facility]) Lori 07-08-06 ([phone]): reports SVT with short PA responsive to [...] of this encounter (statuses as of 04/22/2022) [facility] Narrative* Problem Noted [...] [place] 30 - 200 mg/dL 56 Cholesterol, [place] 0 - 200 mg/dL 192 HDL Chol, [place] 40 - 60 mg/dL 49 VLDL Chol, [...] monitor 2-06 per outside records (Lori in [facility]) Lori 07-08-06 ([phone]): reports SVT with short PA responsive to [...] of this encounter (statuses as of 05/13/2022) [facility] Narrative* Problem Noted [...] Plan: Component Latest Ref Rng 11/27/2009 Triglyceride, [place] 30 - 200 mg/dL 56 Cholesterol, [place] 0 - 200 mg/dL 192 HDL Chol, [place] 40 - 60 mg/dL 49 VLDL Chol, [place] 5 - 40 mg/dL 11 LDL Chol, [...] monitor 2-06 per outside records (Lori in [facility]) Lori 07-08-06 ([phone]): reports SVT with short PA responsive to [...] of this encounter (statuses as of 06/30/2022) [facility] Narrative* Problem Noted [...] Plan: Component Latest Ref Rng 11/27/2009 Triglyceride, [place] 30 - 200 mg/dL 56 Cholesterol, [place] 0 - 200 mg/dL 192 HDL Chol, [place] 40 - 60 mg/dL 49 VLDL Chol, [place] 5 - 40 mg/dL 11 LDL Chol, [place] 0 - 129 mg/dL 132 (H) TC HDL Risk, [place] 0.0 - 5.0 3.9 TSH, [place] 0.400 - 5.500 uIU/mL 2.15 Noted around [...] monitor 2-06 per outside records (Lori in [facility]) Lori 07-08-06 ([phone]): reports SVT with short PA responsive to [...] of this encounter (statuses as of 07/02/2022) [facility] Narrative* Problem Noted [...] 0 - 200 mg/dL 192 HDL Chol, [place] 40 - 60 mg/dL 49 VLDL Chol, [place] 5 - 40 mg/dL 11 LDL Chol, [...] monitor 2-06 per outside records (Lori in [facility]) Lori 07-08-06 ([phone]): reports SVT with short PA responsive to [...] of this encounter (statuses as of 07/03/2022) [facility] Narrative* Problem Noted [...] [place] 30 - 200 mg/dL 56 Cholesterol, [place] 0 - 200 mg/dL 192 HDL Chol, [place] 40 - 60 mg/dL 49 VLDL Chol, [...] monitor 2-06 per outside records (Lori in [facility]) Lori 07-08-06 ([phone]): reports SVT with short PA responsive to [...] of this encounter (statuses as of 10/15/2022) [facility] Narrative* Problem Noted [...] 0 - 200 mg/dL 192 HDL Chol, [place] 40 - 60 mg/dL 49 VLDL Chol, [...] monitor 2-06 per outside records (Lori in [facility]) Lori 07-08-06 ([phone]): reports SVT with short PA responsive to [...] of this encounter (statuses as of 01/11/2023) [facility] Narrative* Problem Noted [...] 0 - 200 mg/dL 192 HDL Chol, [place] 40 - 60 mg/dL 49 VLDL Chol, [...] monitor 2-06 per outside records (Lori in [facility]) Lori 07-08-06 ([phone]): reports SVT with short PA responsive to [...] of this encounter (statuses as of 02/23/2023) [facility] Narrative* Problem Noted [...] Plan: Component Latest Ref Rng 11/27/2009 Triglyceride, [place] 30 - 200 mg/dL 56 Cholesterol, [place] 0 - 200 mg/dL 192 HDL Chol, [place] 40 - 60 mg/dL 49 VLDL Chol, [place] 5 - 40 mg/dL 11 LDL Chol, [place] 0 - 129 mg/dL 132 (H) TC HDL Risk, [place] 0.0 - 5.0 3.9 TSH, [place] 0.400 - 5.500 uIU/mL 2.15 Noted around [...] monitor 2-06 per outside records (Lori in [facility]) Lori 07-08-06 ([phone]): reports SVT with short PA responsive to [...] of this encounter (statuses as of 04/06/2023) [facility] Narrative* Problem Noted [...] 0 - 200 mg/dL 192 HDL Chol, [place] 40 - 60 mg/dL 49 VLDL Chol, [place] 5 - 40 mg/dL 11 LDL Chol, [...] monitor 2-06 per outside records (Lori in [facility]) Lori 07-08-06 ([phone]): reports SVT with short PA responsive to [...] of this encounter (statuses as of 04/16/2023) [facility] Narrative* Problem Noted [...] 40 - 60 mg/dL 49 VLDL Chol, [place] 5 - 40 mg/dL 11 LDL Chol, [place] 0 - 129 mg/dL 132 (H) TC HDL Risk, [place] 0.0 - 5.0 3.9 TSH, [place] 0.400 - 5.500 uIU/mL 2.15 Noted around [...] monitor 2-06 per outside records (Davidmariela in [facility]) Lori 07-08-06 ([phone]): reports SVT with short PA responsive to [...] of this encounter (statuses as of 04/21/2023) [facility] Narrative* Problem Noted [...] 0 - 200 mg/dL 192 HDL Chol, [place] 40 - 60 mg/dL 49 VLDL Chol, [place] 5 - 40 mg/dL 11 LDL Chol, [...] monitor 2-06 per outside records (Lori in [facility]) Lori 07-08-06 ([phone]): reports SVT with short PA responsive to [...] of this encounter (statuses as of 04/22/2023) [facility] Narrative* Problem Noted [...] [place] 30 - 200 mg/dL 56 Cholesterol, [place] 0 - 200 mg/dL 192 HDL Chol, [place] 40 - 60 mg/dL 49 VLDL Chol, [place] 5 - 40 mg/dL 11 LDL Chol, [place] 0 - 129 mg/dL 132 (H) TC [...] monitor 2-06 per outside records (Lori in [facility]) Lori 07-08-06 ([phone]): reports SVT with short PA responsive to [...] of this encounter (statuses as of 05/12/2023) [facility] Narrative* Problem Noted [...] [place] 30 - 200 mg/dL 56 Cholesterol, [place] 0 - 200 mg/dL 192 HDL Chol, [place] 40 - 60 mg/dL 49 VLDL Chol, [place] 5 - 40 mg/dL 11 LDL Chol, [place] 0 - 129 mg/dL 132 (H) TC HDL Risk, [place] 0.0 - 5.0 3.9 TSH, [place] 0.400 - 5.500 uIU/mL 2.15 Noted around [...] monitor 2-06 per outside records (Lori in [facility]) Lori 07-08-06 ([phone]): reports SVT with short PA responsive to [...] of this encounter (statuses as of 05/17/2023) [facility] Narrative* Problem Noted [...] Plan: Component Latest Ref Rng 11/27/2009 Triglyceride, [place] 30 - 200 mg/dL 56 Cholesterol, [place] 0 - 200 mg/dL 192 HDL Chol, [place] 40 - 60 mg/dL 49 VLDL Chol, [place] 5 - 40 mg/dL 11 LDL Chol, [place] 0 - 129 mg/dL 132 (H) TC HDL Risk, [place] 0.0 - 5.0 3.9 TSH, [place] 0.400 [...] monitor 2-06 per outside records (Lori in [facility]) Lori 07-08-06 ([phone]): reports SVT with short PA responsive to [...] of this encounter (statuses as of 05/25/2023) [facility] Narrative* Problem Noted [...] 0 - 200 mg/dL 192 HDL Chol, [place] 40 - 60 mg/dL 49 VLDL Chol, [...] monitor 2-06 per outside records ([place] in [facility]) Lori 07-08-06 ([phone]): reports SVT with short PA responsive to [...] of this encounter (statuses as of 07/13/2023) [facility] Narrative* Problem Noted [...] Plan: Component Latest Ref Rng 11/27/2009 Triglyceride, [place] 30 - 200 mg/dL 56 Cholesterol, [place] 0 - 200 mg/dL 192 HDL Chol, [place] 40 - 60 mg/dL 49 VLDL Chol, [place] 5 - 40 mg/dL 11 LDL Chol, [place] 0 - 129 mg/dL 132 (H) TC HDL Risk, [place] 0.0 - 5.0 3.9 TSH, [place] 0.400 - 5.500 uIU/mL 2.15 Noted around [...] monitor 2-06 per outside records (Lori in [facility]) Lori 07-08-06 ([phone]): reports SVT with short PA responsive to [...] of this encounter (statuses as of 07/16/2023) [facility]05-12-2015 History of Past illness Narrative* Problem Noted [...] 40 - 60 mg/dL 49 VLDL Chol, Dinwiddie 5 - 40 mg/dL 11 LDL Chol, Bethany 0 - 129 mg/dL 132 (H) TC HDL Risk, [place]ie 0.0 - 5.0 3.9 TSH, Bethany 0.400 [...] monitor 2-06 per outside records (Lori in [facility]) Lori 07-08-06 ([phone]): reports SVT with short PA responsive to [...] of this encounter (statuses as of 08/09/2023) [facility] History of Past illness Narrative* Problem Noted [...] 0 - 200 mg/dL 192 HDL Chol, Dinwiddie 40 - 60 mg/dL 49 VLDL Chol, [place]widdie 5 - 40 mg/dL 11 LDL Chol, [place]ie 0 - 129 mg/dL 132 (H) TC HDL Risk, [place] 0.0 - 5.0 3.9 TSH, Bethany 0.400 [...] monitor 2-06 per outside records (Lori in [facility]) Lori 07-08-06 ([phone]): reports SVT with short PA responsive to [...] of this encounter (statuses as of 10/11/2023) [facility] History of Past illness Narrative* Problem Noted [...] monitor 2-06 per outside records (Lori in [facility]) Lori 07-08-06 ([phone]): reports SVT with short PA responsive to [...] of this encounter (statuses as of 11/11/2023) [facility] History of Past illness Narrative* Problem Noted [...] Plan: Component Latest Ref Rng 11/27/2009 Triglyceride, Dinwiddie 30 - 200 mg/dL 56 Cholesterol, Bethany 0 - 200 mg/dL 192 HDL Chol, Bethany 40 - 60 mg/dL 49 VLDL Chol, [place]widdie 5 - 40 mg/dL 11 LDL Chol, Bethany 0 - 129 mg/dL 132 (H) TC HDL Risk, [place] 0.0 - 5.0 3.9 TSH, Bethany 0.400 [...] monitor 2- per outside records (Lori in [facility]) Lori 07-08-06 ([phone]): reports SVT with short PA responsive to [...] of this encounter (statuses as of 11/13/2023) [facility] History of Past illness Narrative* Problem Noted [...] Bethany 30 - 200 mg/dL 56 Cholesterol, Dinwiddie 0 - 200 mg/dL 192 HDL Chol, [place]ie 40 - 60 mg/dL 49 VLDL Chol, [place]ie 5 - 40 mg/dL 11 LDL Chol, [place] 0 - 129 mg/dL 132 (H) TC HDL Risk, Bethany 0.0 - 5.0 3.9 TSH, [place]ie 0.400 - 5.500 uIU/mL 2.15 Noted around [...] monitor 2-06 per outside records (Lori in [facility]) Lori 07-08-06 ([phone]): reports SVT with short PA responsive to [...] of this encounter (statuses as of 11/22/2023) [facility] Onset Date Resolution Status Encounter for screening for COVID-19 acute [facility] Work Phone: Evaluation note* Diagnosis Chest pain, unspecified type- Primary documented in this encounter [facility] note* Diagnosis Atypical chest pain- Primary [...] limb Pure hypercholesterolemia [facility] Diagnosis Palpitations- Primary Atypical chest pain Other chest pain Family history of coronary artery disease Family history of ischemic heart disease ACS (acute coronary syndrome) (HCC) Intermediate coronary syndrome [facility] Diagnosis Palpitations- Primary [facility] noteNo assessment information [facility] Work [facility]: [facility]* Diagnosis Atypical chest pain- Primary Other chest pain Palpitations [facility]* Diagnosis ACS (acute coronary syndrome) (HCC) Intermediate coronary syndrome [facility] Diagnosis Bruit- Primary Other symptoms involving cardiovascular system Mixed hyperlipidemia [facility]* Diagnosis Raynaud's phenomenon without gangrene- [...] localized osteoarthrosis, hand [facility]* Diagnosis Pain in joint, multiple sites Pain in left hip Pain in joint, pelvic region and thigh [facility]* Diagnosis Routine medical exam- Primary Routine general medical examination at a health care facility Pure hypercholesterolemia Costochondritis Tietze's disease Localized primary osteoarthritis of carpometacarpal (CMC) joint of right wrist Encounter for long-term current use of medication Need for vaccination Need for prophylactic vaccination and inoculation against unspecified single disease [facility] Diagnosis Encounter for immunization- Primary Need for other specified prophylactic vaccination against single bacterial disease Screening for cervical cancer Screening for malignant neoplasm of the cervix Encounter for screening mammogram for breast cancer [facility] Diagnosis Positive (antinuclear antibody)- Primary Other and unspecified nonspecific immunological findings Trigger thumb of right hand Trigger finger (acquired) Raynaud's phenomenon without gangrene Hypermobile joints Other joint derangement, not elsewhere classified, unspecified site [facility] Diagnosis Onset Date Resolution Status Atrophic vaginitis acute Hematuria acute Encounter for routine gynecological examination noneactive Vaginal burning noneactive [facility] Work Phone: Evaluation note* Diagnosis Palpitations- Primary Coronary artery disease involving [place] coronary artery of [place] heart without angina pectoris [facility] Acute pain of right shoulder- Primary [facility] Diagnosis Positive (antinuclear antibody)- Primary Other and unspecified nonspecific immunological findings Trigger thumb of right hand Trigger finger (acquired) Raynaud's phenomenon without gangrene Hypermobile joints Other joint derangement, not elsewhere classified, unspecified site [facility]* Diagnosis Neoplasm of unspecified behavior of bone, soft tissue, and skin- Primary Dermatofibroma Benign neoplasm of skin, site unspecified Seborrheic keratoses Other seborrheic keratosis [facility]* Diagnosis Pure hypercholesterolemia- Primary Vitamin D deficiency Unspecified vitamin D deficiency [facility]* Diagnosis Abdominal pain, RUQ (right upper quadrant)- Primary Abdominal pain, right upper quadrant Gastroesophageal reflux disease without esophagitis Esophageal reflux History of gastritis Personal history of other diseases of digestive system [facility]* Diagnosis Wellness examination- Primary Gastroesophageal reflux disease without esophagitis Esophageal reflux Raynaud's phenomenon without gangrene Pain of right heel Pain in limb Encounter for immunization Need for other specified prophylactic vaccination against single bacterial disease [facility] Diagnosis Family history of coronary artery disease Family history of ischemic heart disease Pure hypercholesterolemia [facility]* Diagnosis Basal cell carcinoma of face Basal cell carcinoma of skin of other and unspecified parts of face [facility] Diagnosis Basal cell carcinoma of face- Primary Basal cell carcinoma of skin of other and unspecified parts of face [facility]* Diagnosis Encounter for screening mammogram for breast cancer [facility] Diagnosis Acute left-sided thoracic back pain- Primary [facility] Diagnosis Encounter for screening mammogram [...] neoplasm of skin [facility] Diagnosis Palpitations- Primary Family history of ischemic heart disease Pure hypercholesterolemia Raynaud's phenomenon without gangrene [facility] Diagnosis Acute left-sided thoracic back pain [facility] Diagnosis Pain of right thumb Pain in limb [facility] Diagnosis Wellness examination- Primary Screening for depression Encounter for screening examination for other mental health and behavioral disorders Encounter for therapeutic drug monitoring Vitamin D deficiency Unspecified vitamin D deficiency Memory impairment Memory loss Screening for lipid disorders [facility] Diagnosis Multiple benign nevi- Primary Benign [...] condition of skin [facility] Diagnosis Family history of coronary artery disease Family history of ischemic heart disease Pure hypercholesterolemia [facility] Diagnosis Dermatofibroma- Primary Benign neoplasm of skin, site unspecified [facility] Diagnosis History of gastritis Personal history of other diseases of digestive system [facility] Diagnosis Bruit- Primary Other symptoms involving cardiovascular system Family history of coronary artery disease Family history of ischemic heart disease Pure hypercholesterolemia Precordial pain Palpitations [facility] Diagnosis Family history of coronary artery disease Family history of ischemic heart disease Pure hypercholesterolemia [facility] Diagnosis Encounter for screening mammogram for breast cancer [facility] Diagnosis Mixed hyperlipidemia- Primary [facility] Diagnosis History of gastritis Personal history of other diseases of digestive system Family history of coronary artery disease Family history of ischemic heart disease Pure hypercholesterolemia documented in this encounter [facility] note* Diagnosis Allergic contact dermatitis due [...] to solar radiation documented in this encounter [facility] Work Phone: Reason for referral (narrative)* Outpatient Procedure (Routine) - Pending Review Specialty Diagnoses / Procedures Referred By Justoac t Referred To Contact [facility] Diagnoses Bruit Procedures US CAROTID ARTERIES TELMA VAS LAB DUPLEX SCAN EXTRACRANIAL ART COMPL BI STUDY Jimmy Quintana MD [address] [place] [address] [facility] [place] [address] Referral ID Status Reason Start Date Expiration Date Visits Requested Visits Authorized [id number] Pending Review Auto-Generat ed Referral 02/27/2022 01/28/2023 1 1 [facility] for referral (narrative)* Diagnostic Procedure Only (Routine) - Closed Specialty Diagnoses / Procedures Referred By Contac t Referred To Contact XR IMAGING Diagnoses Pain in joint, multiple sites Pain in left hip Procedures XR HIP GENERAL 3V PELV/AP/LAT LEFT RADEX HIP UNILATERAL WITH PELVIS 2-3 VIEWS Samantha Butler MD [address] [place] [id number] Xr Imaging Referral ID Status Reason Start Date Expiration Date V isits Requested Visits Authorized [id number] Closed Auto-Generate d Referral 01/29/2022 02/28/2023 1 1 * Diagnostic Procedure Only (Routine) - Closed Specialty Diagnoses / Procedures Referred By Contac t Referred To Contact XR IMAGING Diagnoses Pain in joint, multiple sites Procedures XR ELBOW GENERAL 2V AP/LAT LEFT RADEX ELBOW 2 VIEWS Samantha Butler MD [address] [place] [address] Xr Imaging Referral ID Status Reason Start Date Expiration Date V isits Requested Visits Authorized [id number] Closed Auto-Generate d Referral 01/29/2022 02/28/2023 1 1 * Diagnostic Procedure Only (Routine) - Closed Specialty Diagnoses / Procedures Referred By Contac t Referred To Contact XR IMAGING Diagnoses Pain in joint, multiple sites Procedures XR ELBOW GENERAL 2V AP/LAT RIGHT RADEX ELBOW 2 VIEWS Samantha Butler MD [address] [place] [address] Xr Imaging Referral ID Status Reason Start Date Expiration Date V isits Requested Visits Authorized [id number] Closed Auto-Generate d Referral 01/29/2022 02/28/2023 1 1 * Diagnostic Procedure Only (Routine) - Closed Specialty Diagnoses / Procedures Referred By Contac t Referred To Contact XR IMAGING Diagnoses Pain in joint, multiple sites Procedures XR HAND GENERAL 3V PA/LAT/OBL BILATERAL RADEX HAND MINIMUM 3 VIEWS Samantha Butler MD [address] [place] [address] Xr Imaging Referral ID Status Reason Start Date Expiration Date V isits Requested Visits Authorized [id number] Closed Auto-Generate d Referral 01/29/2022 02/28/2023 1 1 [facility] for referral (narrative)* Diagnostic Procedure Only (Routine) - Pending Review Specialty Diagnoses / Procedures Referred By Cecille t Referred To Contact BR IMAGING Diagnoses Encounter for screening mammogram for breast cancer Procedures DESTINEE SCREENING SCREENING MAMMOGRAPHY BI 2-VIEW BREAST INC Maryam Milton APRN.CNS [address] [place] [address] Br Imaging [address] [place] [address] Referral ID Status Reason Start Date Expiration Date Visits Requested Visits Authorized [id number] Pending Review Auto-Generat ed Referral 06/30/2022 07/30/2023 1 1 [facility] for referral (narrative)* Diagnostic Procedure Only (Routine) - Authorized Specialty Diagnoses / Procedures Referred By Cecille t Referred To Contact US IMAGING Diagnoses Abdominal pain, RUQ (right upper quadrant) Procedures US ABD RIGHT UPPER QUADRANT US ABDOMINAL REAL TIME W/IMAGE LIMITED Sydnee Sumner APRN.CNP [address] [place] [address] Us Imaging [facility]95 Referral ID Status Reason Start Date Expiration Date Visits Requested Visits Authorized [id number] Authorized Auto-Generat ed Referral 04/21/2023 05/20/2024 1 1 [facility] for referral (narrative)* Diagnostic Procedure Only (Routine) - Pending Review Specialty Diagnoses / Procedures Referred By Contac t Referred To Contact BR IMAGING Diagnoses Encounter for screening mammogram for breast cancer Procedures DESTINEE SCREENING SCREENING MAMMOGRAPHY BI 2-VIEW BREAST INC Domonique Cabrera MD [address] [place] [address] Br Imaging [address] [place] [address] Referral ID Status Reason Start Date Expiration Date Visits Requested Visits Authorized [id number] Pending Review Auto-Generat ed Referral 08/04/2023 09/02/2024 1 1 [facility] for referral (narrative)* Diagnostic Procedure Only (Routine) - Closed Specialty Diagnoses / Procedures Referred By Contac t Referred To Contact XR IMAGING Diagnoses Acute left-sided thoracic back pain Procedures XR THORACIC LIMITED 2V AP/LAT RADEX SPINE THORACIC 2 VIEWS Sydnee Sumner APRN.TRACK REPAIR LABORER [address] [place] [address] [place] [address] Referral ID Status Reason Start Date Expiration Date V isits Requested Visits Authorized [id number] Closed Auto-Generate d Referral 10/11/2023 11/09/2024 1 1 [facility] for referral (narrative)* Outpatient Procedure (Routine) - Authorized Specialty Diagnoses / Procedures Referred By Contac t Referred To Contact [facility] Diagnoses Palpitations Family history of ischemic heart disease Pure hypercholesterolemia Raynaud's phenomenon without gangrene Procedures ECG COMPLETE ECG ROUTINE ECG W/LEAST 12 LDS W/I&R Jimmy Quintana MD [address] [place] [id number] [facility] [address] [place] [address] Referral ID Status Reason Start Date Expiration Date Visits Requested Visits Authorized [id number] Authorized Auto-Generat ed Referral 03/01/2024 03/01/2025 1 1 [facility] for referral (narrative)* Diagnostic Procedure Only (Routine) - Closed Specialty Diagnoses / Procedures Referred By Contac t Referred To Contact XR IMAGING Diagnoses Acute left-sided thoracic back pain Procedures XR THORACIC LIMITED 2V AP/LAT RADEX SPINE THORACIC 2 VIEWS Sydnee Sumner APRN.TRACK REPAIR LABORER [address] [place] [address] [place] [address] Referral ID Status Reason Start Date Expiration Date V isits Requested Visits Authorized [id number] Closed Auto-Generate d Referral 10/11/2023 11/09/2024 1 1 [facility] for referral (narrative)* Diagnostic Procedure Only (Routine) - Closed Specialty Diagnoses / Procedures [facility] Referred To Contact XR IMAGING Diagnoses Pain of right thumb Procedures XR DIGIT GENERAL 3V FRONTAL/LAT/OBL RIGHT X-RAY EXAM OF FINGER(S) Chelsy Oscar APRN.TRACK REPAIR LABORER [address] [place] [address] Xr Imaging [place] [address] Referral ID Status Reason Start Date Expiration Date V isits Requested Visits Authorized [id number] Closed Auto-Generate d Referral 08/13/2021 09/12/2022 1 1 [facility] for referral (narrative)* Diagnostic Procedure Only (Routine) - Authorized Specialty Diagnoses / Procedures Referred By [facility] Referred To Contact MOLECULAR & FUNCTIONAL IMAGING Diagnoses Encounter for screening for cardiovascular disorders Procedures NM CARDIAC PERF STRESS/EXERCISE MYOCARDIAL SPECT MULTIPLE STUDIES Jimmy Quintana MD [address] [place] [address] Molecular & Functional Imaging [address] [place] [address] Referral ID Status Reason Start Date Expiration Date Visits Requested Visits Authorized [id number] Authorized Auto-Generat ed Referral 09/27/2024 10/20/2025 1 1 * Transition of Care (Routine) - Authorized Specialty Diagnoses / Procedures Referred By [facility] Referred To Contact [facility] Procedures CARDIOVASCULAR MEDICINE OP FOLLOW UP APPT ORDER Jimmy Quintana MD [address] [place] [address] [facility] [address] [place] [address] Referral ID Status Reason Start Date Expiration Date Visits Requested Visits Authorized [id number] Authorized PCP Requested Referral 12/19/2024 09/20/2025 1 1 * Outpatient Procedure (Routine) - Authorized Specialty Diagnoses / Procedures Referred By Cecille moe Referred To Contact [facility] Diagnoses Bruit Procedures US CAROTID ARTERIES TELMA VAS LAB DUPLEX SCAN EXTRACRANIAL ART COMPL BI STUDY Jimmy Quintana MD [address] [place] [address] [address] Referral ID Status Reason Start Date Expiration Date Visits Requested Visits Authorized [id number] Authorized Auto-Generat ed Referral 09/27/2024 09/20/2025 1 1 [facility] for referral (narrative)* Diagnostic Procedure Only (Routine) - Closed Specialty Diagnoses / Procedures Referred By Cecille moe Referred To Contact [facility]LECULAR [facility] FUNCTIONAL IMAGING Diagnoses Encounter for screening for cardiovascular disorders Procedures NM CARDIAC PERF STRESS/EXERCISE MYOCARDIAL SPECT MULTIPLE STUDIES Jimmy Quintana MD [address] [place] [address] Molecular & Functional Imaging [address] [place] [address] Referral ID Status Reason Start Date Expiration Date V isits Requested Visits Authorized [id number] Closed Auto-Generate d Referral 09/27/2024 10/20/2025 2 2 [facility] for referral (narrative)No reason for referral information availableWAultman [facility] Work Phone: Reason for referral (narrative)* Transition of Care (Routine) - Authorized Specialty Diagnoses / Procedures Referred By Cecille moe Referred To Contact [facility] Procedures CARDIOVASCULAR MEDICINE OP FOLLOW UP APPT ORDER Jimmy Quintana MD [address] [place] [address] Phone: tel: fax: [address] [address] Referral ID Status Reason Start Date Expiration Date Visits Requested Visits Authorized [id number] Authorized PCP Requested Referral 5 12/20/2025 1 1 [facility] for visit Narrative* Diagnostic Procedure Only (Routine) - Closed Specialty Diagnoses / Procedures Referred By Contac t Referred To Contact BR IMAGING Diagnoses Encounter for screening mammogram for breast cancer Procedures DESTINEE SCREENING SCREENING MAMMOGRAPHY BI 2-VIEW BREAST INC CAD Domonique Guzman MD [address] [place] [address] Br Imaging [address] [place] [address] Referral ID Status Reason Start Date Expiration Date V isits Requested Visits Authorized [id number] Closed Auto-Generate d Referral 08/04/2023 09/02/2024 1 1 [facility] for visit Narrative* Diagnostic Procedure Only (Routine) - Closed Specialty Diagnoses / Procedures Referred By Contac t Referred To Contact XR IMAGING Diagnoses Acute left-sided thoracic back pain Procedures XR THORACIC LIMITED 2V AP/LAT RADEX SPINE THORACIC 2 VIEWS Sydnee Sumner BREED TO WEAN PRODUCTION TECHNICIAN.TRACK REPAIR LABORER [address] [place] [address] [place] [address] Referral ID Status Reason Start Date Expiration Date V isits Requested Visits Authorized [id number] Closed Auto-Generate d Referral 10/11/2023 11/09/2024 1 1 [facility] for visit Narrative* Diagnostic Procedure Only (Routine) - Closed Specialty Diagnoses / Procedures Referred By Contac t Referred To Contact XR IMAGING Diagnoses Pain of right thumb Procedures XR DIGIT GENERAL 3V FRONTAL/LAT/OBL RIGHT X-RAY EXAM OF FINGER(S) Chelsy Oscar, BREED TO WEAN PRODUCTION TECHNICIAN.TRACK REPAIR LABORER [address] [place] [address] [place] [address] Referral ID Status Reason Start Date Expiration Date V isits Requested Visits Authorized [id number] Closed Auto-Generate d Referral 08/13/2021 09/12/2022 1 1 [facility] for visit Narrative* Diagnostic Procedure Only (Routine) - Closed Specialty Diagnoses / Procedures Referred By Contac t Referred To Contact MOLECULAR & FUNCTIONAL IMAGING Diagnoses Encounter for screening for cardiovascular disorders Procedures NM CARDIAC PERF STRESS/EXERCISE MYOCARDIAL SPECT MULTIPLE STUDIES Jimmy Quintana MD [address] [place] [address] Molecular & Functional Imaging [address] [place] [address] Referral ID Status Reason Start Date Expiration Date V isits Requested Visits Authorized [id number] Closed Auto-Generate d Referral 09/27/2024 10/20/2025 2 2 [facility] Diagnostic Procedure Only (Routine) - Closed Specialty Diagnoses / Procedures Referred By Contac t Referred To Contact BR IMAGING Diagnoses Encounter for screening mammogram for breast cancer Procedures DESTINEE SCREENING W PAULINO SCREENING DIGITAL BREAST TOMOSYNTHESIS BI SCREENING MAMMOGRAPHY BI 2-VIEW BREAST INC Sydnee Flowers, JOHN.TRACK REPAIR LABORER [address] [place] [address] Phone: tel: fax: [facility]ING [address] [place] [address] Referral ID Status Reason Start Date Expiration Date V isits Requested Visits Authorized [id number] Closed Auto-Generate d Referral 11/10/2024 12/10/2025 1 1 [facility] Chief Complaint and Reason for Visit Chief Complaint SYMPTOMS, COVID TEST 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) CHEST PAIN Reason for Visit Encounter for screen ing for COVID-19 Chief Complaint SYMPTOMS, COVID TEST 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) CHEST PAIN palpitations 48 HOUR HOLTER MONITOR Reason for Visit Encounter for screen ing for COVID-19 Chief Complaint 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) CHEST PAIN palpitations 48 HOUR HOLTER MONITOR Chief Complaint CHEST PAIN palpitations 48 HOUR HOLTER MONITOR DIZZINESS Chief Complaint 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) Reason for Visit Atrophic vaginitis Hematuria Encounter for routine gynecological examination Vaginal burning Chief Complaint Admit Date 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) October 30, 2024 8:11 am Reason for [...] No November 30, 2021 11:17am Power of Mowing Machine Operator No November 30 11:17am Documents on File Type Date Recorded Patient Sub Arc Operator Expl anation Advance Directive(s) 08/26/2021 7:34 AM Advance Directive(s) 07/17/2021 9:23 AM Advance Directive(s) 07/14/2021 2:34 PM Advance Directive(s) 03/18/2021 12:08 PM Advance Directive(s) 03/12/2021 4:12 PM Advance Directive(s) 05/14/2020 10:32 AM Documents on File Type Date Recorded Patient Sub Arc Operator Expl anation Advance Directive(s) 08/26/2021 7:34 AM Advance Directive(s) 07/17/2021 9:23 AM Advance Directive(s) 07/14/2021 2:34 PM Advance Directive(s) 03/18/2021 12:08 PM Advance Directive(s) 03/12/2021 4:12 PM Advance Directive(s) 05/14/2020 10:32 AM Advance Directive Response Recorded Date/ Time Living Will No December 19, 2021 11:46am Power of Mowing Machine Operator No December 19 11:46am Advance Directive Response Recorded Date/ Time Living Will No January 05, 2022 12 :33pm Power of Mowing Machine Operator No January 05, 2022 12:33pm Advance Directive Response Recorded Date/ Time Living Will No January 05, 2022 11 :33am Power of Mowing Machine Operator No January 05, 2022 11:33am Advance Directive Response Recorded Date/ Time Do you have a Healthcare Power of Mowing Machine Operator? No April 02, 2025 3:39pm Reason for Referral Specialty Diagnoses / Procedures Referred By Cecille moe Referred To Contact Cardiology Diagnoses Atypical chest pain Family history of coronary artery disease Procedures CONSULT TO CARDIOLOGY OFFICE/OUTPATIENT [facility] MDM 60-74 MINUTES Maryam Emmanuel APRN.NAIL FEEDER [address] [place] [address] Referral ID Status Reason Start Date Expiration Date Visits Requested Visits Authorized [id number] Authorized PCP Requested Referral 12/12/2021 12/12/2022 1 1 Specialty Diagnoses / Procedures Referred By Cecille moe Referred To Contact Rheumatology Diagnoses Fibromyalgia Procedures CONSULT TO RHEUM/IMMUN DISEASE OFFICE/OUTPATIENT [facility] 60-74 MINUTES Maryam Emmanuel, BREED TO WEAN PRODUCTION TECHNICIAN.NAIL FEEDER [address] [place] [address] Referral ID Status Reason Start Date Expiration Date Visits Requested Visits Authorized [id number] Authorized PCP Requested Referral 12/12/2021 12/12/2022 1 1 Specialty Diagnoses / Procedures Referred By Contac t Referred To Contact CT IMAGING Diagnoses ACS (acute coronary syndrome) (HCC) Procedures CTA CORONARY W IVCON CTA HRT CORNRY ART/BYPASS GRFTS CONTRST 3D POST Jimmy Quintana MD [address] [place] [address] Ct Imaging Referral ID Status Reason Start Date Expiration Date Visits Requested Visits Authorized [id number] Authorized Auto-Generat ed Referral 12/31/2021 02/07/2022 1 1 Referral ID Status Reason Start Date Expiration Date V isits Requested Visits Authorized [id number] Closed Auto-Generate d Referral 12/31/2021 02/07/2022 1 1 Specialty Diagnoses / Procedures Referred By Contac t Referred To Contact [facility] Diagnoses Primary osteoarthritis of right hand Procedures CONSULT TO HOTEL GUEST SERVICE AGENT OCCUPATIONAL THERAPY EVAL HIGH COMPLEX 60 MINS Samantha Butler MD [address] [facility] [address] [address] [facility] [place] [address] Referral ID Status Reason Start Date Expiration Date Visits Requested Visits Authorized [id number] Pending Review Auto-Generat ed Referral 01/29/2022 01/29/2023 1 1 Specialty Diagnoses / Procedures Referred By Contac t Referred To Contact [facility] Diagnoses Hypermobile joints Procedures CONSULT TO PHYSICAL THERAPY PHYSICAL THERAPY EVALUATION HIGH COMPLEX 45 MINS Samantha Butler MD [address] [facility] [address] [address] [facility] [address] [address] Referral ID Status Reason Start Date Expiration Date Visits Requested Visits Authorized [id number] Pending Review Auto-Generat ed Referral 01/29/2022 01/29/2023 1 1 Specialty Diagnoses / Procedures Referred By Contac t Referred To Contact XR IMAGING Diagnoses Pain in joint, multiple sites Pain in left hip Procedures XR HIP GENERAL 3V PELV/AP/LAT LEFT RADEX HIP UNILATERAL WITH PELVIS 2-3 VIEWS Samantha Butler MD [address] [place] [address] Xr Imaging Referral ID Status Reason Start Date Expiration Date V isits Requested Visits Authorized [id number] Closed Auto-Generate d Referral 01/29/2022 02/28/2023 1 1 Specialty Diagnoses / Procedures Referred By Contac t Referred To Contact XR IMAGING Diagnoses Pain in joint, multiple sites Procedures XR ELBOW GENERAL 2V AP/LAT LEFT RADEX ELBOW 2 VIEWS Samantha Butler MD [address] [place] [address] Xr Imaging Referral ID Status Reason Start Date Expiration Date V isits Requested Visits Authorized [id number] Closed Auto-Generate d Referral 01/29/2022 02/28/2023 1 1 Specialty Diagnoses / Procedures Referred By Contac t Referred To Contact XR IMAGING Diagnoses Pain in joint, multiple sites Procedures XR ELBOW GENERAL 2V AP/LAT RIGHT RADEX ELBOW 2 VIEWS Samantha Butler MD [address] [place] [address] Xr Imaging Referral ID Status Reason Start Date Expiration Date V isits Requested Visits Authorized [id number] Closed Auto-Generate d Referral 01/29/2022 02/28/2023 1 1 Specialty Diagnoses / Procedures Referred By Contac t Referred To Contact XR IMAGING Diagnoses Pain in joint, multiple sites Procedures XR HAND GENERAL 3V PA/LAT/OBL BILATERAL RADEX HAND MINIMUM 3 VIEWS Samantha Butler MD [address] [place] [address] Xr Imaging Referral ID Status Reason Start Date Expiration Date V isits Requested Visits Authorized [id number] Closed Auto-Generate d Referral 01/29/2022 02/28/2023 1 1 Specialty Diagnoses / Procedures Referred By Contac t Referred To Contact Orthopedics Diagnoses Trigger thumb of right hand Procedures CONSULT PANEL TO ORTHOPAEDICS OFFICE/OUTPATIENT [facility] 60-74 MINUTES Samantha Butler MD [address] [place] [address] Referral ID Status Reason Start Date Expiration Date Visits Requested Visits Authorized [id number] Authorized PCP Requested Referral 07/02/2022 07/02/2023 1 1 Specialty Diagnoses / Procedures Referred By Contac t Referred To Contact Orthopedics Diagnoses Acute pain of right shoulder Procedures CONSULT TO ORTHOPAEDICS OFFICE/OUTPATIENT [facility] 60-74 MINUTES Maryam Emmanuel, BREED TO WEAN PRODUCTION TECHNICIAN.NAIL FEEDER [address] [place] [address] Referral ID Status Reason Start Date Expiration Date Visits Requested Visits Authorized [id number] Authorized PCP Requested Referral 01/11/2023 01/11/2024 1 1 Specialty Diagnoses / Procedures Referred By Contac t Referred To Contact XR IMAGING Diagnoses Acute pain of right shoulder Procedures XR SHOULDER GENERAL 3V OR MORE AP/TRUE AP/OTHER RIGHT RADEX SHOULDER COMPLETE MINIMUM 2 VIEWS Maryam Emmanuel, BREED TO WEAN PRODUCTION TECHNICIAN.NAIL FEEDER [address] [place] [address] Xr Imaging Referral ID Status Reason Start Date Expiration Date Visits Requested Visits Authorized [id number] Pending Review Auto-Generat ed Referral 01/11/2023 02/10/2024 1 1 Specialty Diagnoses / Procedures Referred By Contac t Referred To Contact Dermatology Diagnoses Basal cell carcinoma of face Procedures MOHS OFFICE/OUTPATIENT [facility] 60-74 MINUTES Suyapa Peraza PA-C [address] [place] [address] Referral ID Status Reason Start Date Expiration Date V isits Requested Visits Authorized [id number] Closed PCP Requested Referral 04/19/2023 04/18/2024 1 [...] or prosecute any alcohol or drug abuse patient.[facility] the event this information is protected by the Federal Confidentiality of Alcohol and Drug Abuse Patient Records regulations: The Federal rules restrict any use of the information to criminally investigate or prosecute any alcohol or drug abuse patient.[facility] HospitalIn the event this information is protected by the Federal Confidentiality of Alcohol and Drug Abuse Patient Records regulations: The Federal rules restrict any use of the information to criminally investigate or prosecute any alcohol or drug abuse patient.[facility]In the event this information is protected by the Federal Confidentiality of Alcohol and Drug Abuse Patient Records regulations: The Federal rules restrict any use of the information to criminally investigate or prosecute any alcohol or drug abuse patient.[facility] HospitalIn the event this information is protected by the Federal Confidentiality of Alcohol and Drug Abuse Patient Records regulations: The Federal rules restrict any use of the information to criminally investigate or prosecute any alcohol or drug abuse patient.[facility] HospitalIn the event this information is protected by the Federal Confidentiality of Alcohol and Drug Abuse Patient Records regulations: The Federal rules restrict any use of the information to criminally investigate or prosecute any alcohol or drug abuse patient.[facility] HospitalIn the event this information is protected by the Federal Confidentiality of Alcohol and Drug Abuse Patient Records regulations: The Federal rules restrict any use of the information to criminally investigate or prosecute any alcohol or drug abuse patient.[facility] HospitalIn the event this information is protected by the Federal Confidentiality of Alcohol and Drug Abuse Patient Records regulations: The Federal rules restrict any use of the information to criminally investigate or prosecute any alcohol or drug abuse patient.[facility] HospitalIn the event this information is protected by the Federal Confidentiality of Alcohol and Drug Abuse Patient Records regulations: The Federal rules restrict any use of the information to criminally investigate or prosecute any alcohol or drug abuse patient.[facility] HospitalIn the event this information is protected by the Federal Confidentiality of Alcohol and Drug Abuse Patient Records regulations: The Federal rules restrict any use of the information to criminally investigate or prosecute any alcohol or drug abuse patient.[facility] HospitalIn the event this information is protected by the Federal Confidentiality of Alcohol and Drug Abuse Patient Records regulations: The Federal rules restrict any use of the information to criminally investigate or prosecute any alcohol or drug abuse patient.[facility] HospitalIn the event this information is protected by the Federal Confidentiality of Alcohol and Drug Abuse Patient Records regulations: The Federal rules restrict any use of the information to criminally investigate or prosecute any alcohol or drug abuse patient.[facility] HospitalIn the event this information is protected by the Federal Confidentiality of Alcohol and Drug Abuse Patient Records regulations: The Federal rules restrict any use of the information to criminally investigate or prosecute any alcohol or drug abuse patient.[facility] HospitalIn the event this information is protected by the Federal Confidentiality of Alcohol and Drug Abuse Patient Records regulations: The Federal rules restrict any use of the information to criminally investigate or prosecute any alcohol or drug abuse patient.[facility] HospitalIn the event this information is protected by the Federal Confidentiality of Alcohol and Drug Abuse Patient Records regulations: The Federal rules restrict any use of the information to criminally investigate or prosecute any alcohol or drug abuse patient.[facility] HospitalIn the event this information is protected by the Federal Confidentiality of Alcohol and Drug Abuse Patient Records regulations: The Federal rules restrict any use of the information to criminally investigate or prosecute any alcohol or drug abuse patient.[facility] HospitalIn the event this information is protected by the Federal Confidentiality of Alcohol and Drug Abuse Patient Records regulations: The Federal rules restrict any use of the information to criminally investigate or prosecute any alcohol or drug abuse patient.[facility] HospitalIn the event this information is protected by the Federal Confidentiality of Alcohol and Drug Abuse Patient Records regulations: The Federal rules restrict any use of the information to criminally investigate or prosecute any alcohol or drug abuse patient.[facility] HospitalIn the event this information is protected by the Federal Confidentiality of Alcohol and Drug Abuse Patient Records regulations: The Federal rules restrict any use of the information to criminally investigate or prosecute any alcohol or drug abuse patient.[facility] HospitalIn the event this information is protected by the Federal Confidentiality of Alcohol and Drug Abuse Patient Records regulations: The Federal rules restrict any use of the information to criminally investigate or prosecute any alcohol or drug abuse patient.[facility] HospitalIn the event this information is protected by the Federal Confidentiality of Alcohol and Drug Abuse Patient Records regulations: The Federal rules restrict any use of the information to criminally investigate or prosecute any alcohol or drug abuse patient.[facility] HospitalIn the event this information is protected by the Federal Confidentiality of Alcohol and Drug Abuse Patient Records regulations: The Federal rules restrict any use of the information to criminally investigate or prosecute any alcohol or drug abuse patient.[facility] HospitalIn the event this information is protected by the Federal Confidentiality of Alcohol and Drug Abuse Patient Records regulations: The Federal rules restrict any use of the information to criminally investigate or prosecute any alcohol or drug abuse patient.[facility] HospitalIn the event this information is protected by the Federal Confidentiality of Alcohol and Drug Abuse Patient Records regulations: The Federal rules restrict any use of the information to criminally investigate or prosecute any alcohol or drug abuse patient.[facility] HospitalIn the event this information is protected by the Federal Confidentiality of Alcohol and Drug Abuse Patient Records regulations: The Federal rules restrict any use of the information to criminally investigate or prosecute any alcohol or drug abuse patient.[facility] HospitalIn the event this information is protected by the Federal Confidentiality of Alcohol and Drug Abuse Patient Records regulations: The Federal rules restrict any use of the information to criminally investigate or prosecute any alcohol or drug abuse patient.[facility] HospitalIn the event this information is protected by the Federal Confidentiality of Alcohol and Drug Abuse Patient Records regulations: The Federal rules restrict any use of the information to criminally investigate or prosecute any alcohol or drug abuse patient.[facility] HospitalIn the event this information is protected by the Federal Confidentiality of Alcohol and Drug Abuse Patient Records regulations: The Federal rules restrict any use of the information to criminally investigate or prosecute any alcohol or drug abuse patient.[facility] HospitalIn the event this information is protected by the Federal Confidentiality of Alcohol and Drug Abuse Patient Records regulations: The Federal rules restrict any use of the information to criminally investigate or prosecute any alcohol or drug abuse patient.[facility] HospitalIn the event this information is protected by the Federal Confidentiality of Alcohol and Drug Abuse Patient Records regulations: The Federal rules restrict any use of the information to criminally investigate or prosecute any alcohol or drug abuse patient.[facility] HospitalIn the event this information is protected by the Federal Confidentiality of Alcohol and Drug Abuse Patient Records regulations: The Federal rules restrict any use of the information to criminally investigate or prosecute any alcohol or drug abuse patient.[facility] HospitalIn the event this information is protected by the Federal Confidentiality of Alcohol and Drug Abuse Patient Records regulations: The Federal rules restrict any use of the information to criminally investigate or prosecute any alcohol or drug abuse patient.[facility] HospitalIn the event this information is protected by the Federal Confidentiality of Alcohol and Drug Abuse Patient Records regulations: The Federal rules restrict any use of the information to criminally investigate or prosecute any alcohol or drug abuse patient.[facility] HospitalIn the event this information is protected by the Federal Confidentiality of Alcohol and Drug Abuse Patient Records regulations: The Federal rules restrict any use of the information to criminally investigate or prosecute any alcohol or drug abuse patient.[facility] HospitalIn the event this information is protected by the Federal Confidentiality of Alcohol and Drug Abuse Patient Records regulations: The Federal rules restrict any use of the information to criminally investigate or prosecute any alcohol or drug abuse patient.[facility] HospitalIn the event this information is protected by the Federal Confidentiality of Alcohol and Drug Abuse Patient Records regulations: The Federal rules restrict any use of the information to criminally investigate or prosecute any alcohol or drug abuse patient.[facility] HospitalIn the event this information is protected by the Federal Confidentiality of Alcohol and Drug Abuse Patient Records regulations: The Federal rules restrict any use of the information to criminally investigate or prosecute any alcohol or drug abuse patient.[facility] HospitalIn the event this information is protected by the Federal Confidentiality of Alcohol and Drug Abuse Patient Records regulations: The Federal rules restrict any use of the information to criminally investigate or prosecute any alcohol or drug abuse patient.[facility] HospitalIn the event this information is protected by the Federal Confidentiality of Alcohol and Drug Abuse Patient Records regulations: The Federal rules restrict any use of the information to criminally investigate or prosecute any alcohol or drug abuse patient.[facility] HospitalIn the event this information is protected by the Federal Confidentiality of Alcohol and Drug Abuse Patient Records regulations: The Federal rules restrict any use of the information to criminally investigate or prosecute any alcohol or drug abuse patient.[facility] HospitalIn the event this information is protected by the Federal Confidentiality of Alcohol and Drug Abuse Patient Records regulations: The Federal rules restrict any use of the information to criminally investigate or prosecute any alcohol or drug abuse patient.[facility] HospitalIn the event this information is protected by the Federal Confidentiality of Alcohol and Drug Abuse Patient Records regulations: The Federal rules restrict any use of the information to criminally investigate or prosecute any alcohol or drug abuse patient.[facility] HospitalIn the event this information is protected by the Federal Confidentiality of Alcohol and Drug Abuse Patient Records regulations: The Federal rules restrict any use of the information to criminally investigate or prosecute any alcohol or drug abuse patient.[facility] HospitalIn the event this information is protected by the Federal Confidentiality of Alcohol and Drug Abuse Patient Records regulations: The Federal rules restrict any use of the information to criminally investigate or prosecute any alcohol or drug abuse patient.[facility] HospitalIn the event this information is protected by the Federal Confidentiality of Alcohol and Drug Abuse Patient Records regulations: The Federal rules restrict any use of the information to criminally investigate or prosecute any alcohol or drug abuse patient.[facility] HospitalIn the event this information is protected by the Federal Confidentiality of Alcohol and Drug Abuse Patient Records regulations: The Federal rules restrict any use of the information to criminally investigate or prosecute any alcohol or drug abuse patient.[facility] HospitalIn the event this information is protected by the Federal Confidentiality of Alcohol and Drug Abuse Patient Records regulations: The Federal rules restrict any use of the information to criminally investigate or prosecute any alcohol or drug abuse patient.[facility] HospitalIn the event this information is protected by the Federal Confidentiality of Alcohol and Drug Abuse Patient Records regulations: The Federal rules restrict any use of the information to criminally investigate or prosecute any alcohol or drug abuse patient.[facility] HospitalIn the event this information is protected by the Federal Confidentiality of Alcohol and Drug Abuse Patient Records regulations: The Federal rules restrict any use of the information to criminally investigate or prosecute any alcohol or drug abuse patient.[facility] HospitalIn the event this information is protected by the Federal Confidentiality of Alcohol and Drug Abuse Patient Records regulations: The Federal rules restrict any use of the information to criminally investigate or prosecute any alcohol or drug abuse patient.[facility] HospitalIn the event this information is protected by the Federal Confidentiality of Alcohol and Drug Abuse Patient Records regulations: The Federal rules restrict any use of the information to criminally investigate or prosecute any alcohol or drug abuse patient.[facility] HospitalIn the event this information is protected by the Federal Confidentiality of Alcohol and Drug Abuse Patient Records regulations: The Federal rules restrict any use of the information to criminally investigate or prosecute any alcohol or drug abuse patient.[facility] HospitalIn the event this information is protected by the Federal Confidentiality of Alcohol and Drug Abuse Patient Records regulations: The Federal rules restrict any use of the information to criminally investigate or prosecute any alcohol or drug abuse patient.[facility] HospitalIn the event this information is protected by the Federal Confidentiality of Alcohol and Drug Abuse Patient Records regulations: The Federal rules restrict any use of the information to criminally investigate or prosecute any alcohol or drug abuse patient.[facility] HospitalIn the event this information is protected by the Federal Confidentiality of Alcohol and Drug Abuse Patient Records regulations: The Federal rules restrict any use of the information to criminally investigate or prosecute any alcohol or drug abuse patient.[facility] HospitalIn the event this information is protected by the Federal Confidentiality of Alcohol and Drug Abuse Patient Records regulations: The Federal rules restrict any use of the information to criminally investigate or prosecute any alcohol or drug abuse patient.[facility] HospitalIn the event this information is protected by the Federal Confidentiality of Alcohol and Drug Abuse Patient Records regulations: The Federal rules restrict any use of the information to criminally investigate or prosecute any alcohol or drug abuse patient.[facility] HospitalIn the event this information is protected by the Federal Confidentiality of Alcohol and Drug Abuse Patient Records regulations: The Federal rules restrict any use of the information to criminally investigate or prosecute any alcohol or drug abuse patient.[facility] HospitalIn the event this information is protected by the Federal Confidentiality of Alcohol and Drug Abuse Patient Records regulations: The Federal rules restrict any use of the information to criminally investigate or prosecute any alcohol or drug abuse patient.[facility] HospitalIn the event this information is protected by the Federal Confidentiality of Alcohol and Drug Abuse Patient Records regulations: The Federal rules restrict any use of the information to criminally investigate or prosecute any alcohol or drug abuse patient.[facility] HospitalIn the event this information is protected by the Federal Confidentiality of Alcohol and Drug Abuse Patient Records regulations: The Federal rules restrict any use of the information to criminally investigate or prosecute any alcohol or drug abuse patient.[facility] HospitalIn the event this information is protected by the Federal Confidentiality of Alcohol and Drug Abuse Patient Records regulations: The Federal rules restrict any use of the information to criminally investigate or prosecute any alcohol or drug abuse patient.[facility] Care Teams (unrecognized sec tion and content) Ampoule Filler And Sealer Relationship Specialty Start Date End Date Domonique Guzman MD [facility] [place] [address] PCP - General Internal Medicine 05/26/16 Ampoule Filler And Sealer Relationship Specialty Start Date End Date Domonique Guzman MD [address] [place] [address] PCP - General Internal Medicine 05/26/16 Ampoule Filler And Sealer Relationship Specialty Start Date End Date Domonique Guzman MD [address] [place] [address] PCP - General Internal Medicine 05/26/16 Ampoule Filler And Sealer Relationship Specialty Start Date End Date Domonique Guzman MD [address] [place] [address] [place] [address] PCP - General Internal Medicine 05/26/16 Ampoule Filler And Sealer Relationship Specialty Start Date End Date Domonique Guzman MD [address] [place] [address] PCP - General Internal Medicine 05/26/16 Ampoule Filler And Sealer Relationship Specialty Start Date End Date Domonique Guzman MD [address] [place] [address] [place] [address] PCP - General Internal Medicine 05/26/16 Ampoule Filler And Sealer Relationship Specialty Start Date End Date Domonique Guzman MD [address] [place] [address] [place] [address] PCP - General Internal Medicine 05/26/16 Ampoule Filler And Sealer Relationship Specialty Start Date End Date Domonique Guzman MD [address] [place] [address] PCP - General Internal Medicine 05/26/16 Jimmy Quintana MD [address] [place] [address] Primary Staff Physician Cardiology 01/28/22 Ampoule Filler And Sealer Relationship Specialty Start Date End Date Domonique Guzman MD [address] [place] [address] PCP - General Internal Medicine 05/26/16 Jimmy Quintana MD [address] [place] [address] Primary Staff Physician Cardiology 01/28/22 Ampoule Filler And Sealer Relationship Specialty Start Date End Date Domonique Guzman MD [address] [place] [address] PCP - General Internal Medicine 05/26/16 Jimmy Quintana MD [address] [place] [address] Primary Staff Physician Cardiology 01/28/22 Ampoule Filler And Sealer Relationship Specialty Start Date End Date Domonique Guzman MD [address] [place] [address] PCP - General Internal Medicine 05/26/16 Jimmy Quintana MD [address] [place] [address] Primary Staff Physician Cardiology 01/28/22 Ampoule Filler And Sealer Relationship Specialty Start Date End Date Domonique Guzman MD [address] [place] [address] PCP - General Internal Medicine 05/26/16 Jimmy Quintana MD [address] [place] [address] Primary Staff Physician Cardiology 01/28/22 Ampoule Filler And Sealer Relationship Specialty Start Date End Date Domonique Guzman MD [address] [place] [address] PCP - General Internal Medicine 05/26/16 Jimmy Quintana MD [address] [place] [address] Primary Staff Physician Cardiology 01/28/22 Ampoule Filler And Sealer Relationship Specialty Start Date End Date Domonique Guzman MD [address] [place] [address] PCP - General Internal Medicine 05/26/16 Jimmy Quintana MD [address] [place] [address] Primary Staff Physician Cardiology 01/28/22 Ampoule Filler And Sealer Relationship Specialty Start Date End Date Domonique Guzman MD [address] [place] [address] PCP - General Internal Medicine 05/26/16 Jimmy Quintana MD [address] [place] [address] Primary Staff Physician Cardiology 01/28/22 Ampoule Filler And Sealer Relationship Specialty Start Date End Date Domonique Guzman MD [address] [place] [address] PCP - General Internal Medicine 05/26/16 Jimmy Quintana MD [address] [place] [address] Primary Staff Physician Cardiology 01/28/22 Team Status: Active Member Role Status Dates Dr. Domonique Guzman MD Family Provider Active Dr. Domonique Guzman MD Primary Care Provider Active Team Status: Inactive Member Role Status Dates Dr. Domonique Guzman MD Primary Care Provider, Referr ing Provider Active Mahsa Fischer RETAIL SALESWORKER, RETAIL SALESWORKER-C Attending Provider Active Team Status: Inactive Member Role Status Dates Dr. Domonique Guzman MD Primary Care Provider Active Mahsa Fischer RETAIL SALESWORKER, RETAIL SALESWORKER-C Attending Provider Active Ampoule Filler And Sealer Relationship Specialty Start Date End Date Domonique Guzman MD [address] [place] [address] PCP - General Internal Medicine 05/26/16 Jimmy Quintana MD [address] [place], [place] 9437495 Primary Staff Physician Cardiology 01/28/22 Ampoule Filler And Sealer Relationship Specialty Start Date End Date Domonique Guzman MD [address] [place] [address] PCP - General Internal Medicine 05/26/16 Jimmy Quintana MD [address] [place], [place] 0351395 Primary Staff Physician Cardiology 01/28/22 Ampoule Filler And Sealer Relationship Specialty Start Date End Date Domonique Guzman MD [address] [place] [address] PCP - General Internal Medicine 05/26/16 Jimmy Quintana MD [address] [place], [place] 3231195 Primary Staff Physician Cardiology 01/28/22 Ampoule Filler And Sealer Relationship Specialty Start Date End Date Domonique Guzman MD [address] [place] [address] PCP - General Internal Medicine 05/26/16 Jimmy Quintana MD [address] [facility] [place] [address] Primary Staff Physician Cardiology 01/28/22 Ampoule Filler And Sealer Relationship Specialty Start Date End Date Domonique Guzman MD [address] [place], [place] 413731 PCP - General Internal Medicine 05/26/16 Jimmy Quintana MD [address] [facility] [place] [place] [address] Primary Staff Physician Cardiology 01/28/22 Ampoule Filler And Sealer Relationship Specialty Start Date End Date Domonique Guzman MD [address] [place], [place] 464831 PCP - General Internal Medicine 05/26/16 Jimmy Quintana MD [address] [place], [place] 6766895 Primary Staff Physician Cardiology 01/28/22 Ampoule Filler And Sealer Relationship Specialty Start Date End Date Domonique Guzman MD [address] [place], [place] 513011 PCP - General Internal Medicine 05/26/16 Jimmy Quintana MD [address] [place] [address] Primary Staff Physician Cardiology 01/28/22 Ampoule Filler And Sealer Relationship Specialty Start Date End Date Domonique Guzman MD [address] [place] [address] PCP - General Internal Medicine 05/26/16 Jimmy Quintana MD [address] [place] [address] Primary Staff Physician Cardiology 01/28/22 Ampoule Filler And Sealer Relationship Specialty Start Date End Date Domonique Guzman MD [address] [place] [address] PCP - General Internal Medicine 05/26/16 Jimmy Quintana MD [address] [place] [address] Primary Staff Physician Cardiology 01/28/22 Ampoule Filler And Sealer Relationship Specialty Start Date End Date Domonique Guzman MD [address] [place] [address] PCP - General Internal Medicine 05/26/16 Jimmy Quintana MD [address] [place] [address] Primary Staff Physician Cardiology 01/28/22 Ampoule Filler And Sealer Relationship Specialty Start Date End Date Domonique Guzman MD [address] [place] [address] PCP - General Internal Medicine 05/26/16 Jimmy Quintana MD [address] [place] [address] Primary Staff Physician Cardiology 01/28/22 Ampoule Filler And Sealer Relationship Specialty Start Date End Date Domonique Guzman MD [address] [place] [address] PCP - General Internal Medicine 05/26/16 Jimmy Quintana MD [address] [place] [address] Primary Staff Physician Cardiology 01/28/22 Ampoule Filler And Sealer Relationship Specialty Start Date End Date Domonique Guzman MD [address] [place] [address] PCP - General Internal Medicine 05/26/16 Jimmy Quintana MD [address] [facility] [place] [place] [address] Primary Staff Physician Cardiology 01/28/22 Ampoule Filler And Sealer Relationship Specialty Start Date End Date Domonique Guzman MD [address] [place] [address] PCP - General Internal Medicine 05/26/16 Ampoule Filler And Sealer Relationship Specialty Start Date End Date Domonique Guzman MD [address] [place] [address] PCP - General Internal Medicine 05/26/16 Jimmy Quintana MD [address] [place] [address] Primary Staff Physician Cardiology 01/28/22 Ampoule Filler And Sealer Relationship Specialty Start Date End Date Domonique Guzman MD [address] [place] [address] PCP - General Internal Medicine 05/26/16 Jimmy Quintana MD [address] [place] [address] Primary Staff Physician Cardiology 01/28/22 Ampoule Filler And Sealer Relationship Specialty Start Date End Date Dmoonique Guzman MD [address] [place] [address] PCP - General Internal Medicine 05/26/16 Jimmy Quintana MD [address] [facility] [place] [address] Primary Staff Physician Cardiology 01/28/22 Maryam Emmanuel, BREED TO WEAN PRODUCTION TECHNICIAN.NAIL FEEDER [address] [place] [address] Premium Cancellation Clerk Internal Medicine 08/07/24 Sydnee Sumner BREED TO WEAN PRODUCTION TECHNICIAN.TRACK REPAIR LABORER [address] [place] [address] [facility] Internal Medicine 08/07/24 Ampoule Filler And Sealer Relationship Specialty Start Date End Date Domonique Guzman MD [address] [place] [address] PCP - General Internal Medicine 05/26/16 Jimmy Quintana MD [address] [facility] [place] [place] [address] Primary Staff Physician Cardiology 01/28/22 Maryam Emmanuel, BREED TO WEAN PRODUCTION TECHNICIAN.NAIL FEEDER [address] [place] [address] [facility] Internal Medicine 08/07/24 Sydnee Sumner BREED TO WEAN PRODUCTION TECHNICIAN.TRACK REPAIR LABORER [address] [place] [address] [facility] Internal Medicine 08/07/24 Ampoule Filler And Sealer Relationship Specialty Start Date End Date Domonique Guzman MD [address] [place] [address] PCP - General Internal Medicine 05/26/16 Jimmy Quintana MD [address] [place], [place] 8778295 Primary Staff Physician Cardiology 01/28/22 Maryam Emmanuel, BREED TO WEAN PRODUCTION TECHNICIAN.NAIL FEEDER [address] [place] [address] [facility] Internal Medicine 08/07/24 Sydnee Sumner BREED TO WEAN PRODUCTION TECHNICIAN.TRACK REPAIR LABORER [address] [place] [address] [facility] Internal Medicine 08/07/24 Ampoule Filler And Sealer Relationship Specialty Start Date End Date Domonique Guzman MD [address] [place] [address] PCP - General Internal Medicine 05/26/16 Jimmy Quintana MD [address] [place] [address] Primary Staff Physician Cardiology 01/28/22 Maryam Emmanuel, BREED TO WEAN PRODUCTION TECHNICIAN.NAIL FEEDER [address] [place] [address] [facility] Internal Medicine 08/07/24 Sydnee Sumner, BREED TO WEAN PRODUCTION TECHNICIAN.TRACK REPAIR LABORER [address] [place] [address] [facility] Internal Medicine 08/07/24 Ampoule Filler And Sealer Relationship Specialty Start Date End Date Domonique Guzman MD [address] [place] [address] PCP - General Internal Medicine 05/26/16 Jimmy Quintana MD [address] [place], [place] [address] Primary Staff Physician Cardiology 01/28/22 Maryam Emmanuel, BREED TO WEAN PRODUCTION TECHNICIAN.NAIL FEEDER [address] [place] [address] Premium Cancellation Clerk Internal Medicine 08/07/24 Sydnee Sumner BREED TO WEAN PRODUCTION TECHNICIAN.TRACK REPAIR LABORER [address] [place] [address] Premium Cancellation Clerk Internal Medicine 08/07/24 Ampoule Filler And Sealer Relationship Specialty Start Date End Date Domonique Guzman MD [address] [place] [address] PCP - General Internal Medicine 05/26/16 Jimmy Quintana MD [address] [facility] [place] [address] Primary Staff Physician Cardiology 01/28/22 Maryam Emmanuel, BREED TO WEAN PRODUCTION TECHNICIAN.NAIL FEEDER [address] [place] [address] [facility] Internal Medicine 08/07/24 Sydnee Sumner, BREED TO WEAN PRODUCTION TECHNICIAN.TRACK REPAIR LABORER [facility] [place] [address] [facility] Internal Medicine 08/07/24 Ampoule Filler And Sealer Relationship Specialty Start Date End Date Domonique Guzman MD [address] [place] [address] PCP - General Internal Medicine 05/26/16 Jimmy Quintana MD [address] [place] [address] Primary Staff Physician Cardiology 01/28/22 Maryam Emmanuel, BREED TO WEAN PRODUCTION TECHNICIAN.NAIL FEEDER [address] [place] [address] [facility] Internal Medicine 08/07/24 Sydnee Sumner, BREED TO WEAN PRODUCTION TECHNICIAN.TRACK REPAIR LABORER [address] [place] [address] [facility] Internal Medicine 08/07/24 Ampoule Filler And Sealer Relationship Specialty Start Date End Date Domonique Guzman MD [address] [place] [address] PCP - General Internal Medicine 05/26/16 Jimmy Quintana MD [address] [place], [place] 7717995 Primary Staff Physician Cardiology 01/28/22 Maryam Emmanuel, BREED TO WEAN PRODUCTION TECHNICIAN.NAIL FEEDER [address] [place] [address] [facility] Internal Medicine 08/07/24 Sydnee Sumner, BREED TO WEAN PRODUCTION TECHNICIAN.TRACK REPAIR LABORER [address] [place] [address] [facility] Internal Medicine 08/07/24 Ampoule Filler And Sealer Relationship Specialty Start Date End Date Domonique Guzman MD [address] [place] [address] PCP - General Internal Medicine 05/26/16 Jimmy Quintana MD [address] [place], [place] 88925[address] Primary Staff Physician Cardiology 01/28/22 Maryam Emmanuel, BREED TO WEAN PRODUCTION TECHNICIAN.NAIL FEEDER [address] [place] [address] Premium Cancellation Clerk Internal Medicine 08/07/24 Sydnee Sumner, BREED TO WEAN PRODUCTION TECHNICIAN.TRACK REPAIR LABORER [address] [place] [address] Premium Cancellation Clerk Internal Medicine 08/07/24 Ampoule Filler And Sealer Relationship Specialty Start Date End Date Domonique Guzman MD [address] [place] [address] PCP - General Internal Medicine 05/26/16 Jimmy Quintana MD [address] [place] [address] Primary Staff Physician Cardiology 01/28/22 Maryam Emmanuel, BREED TO WEAN PRODUCTION TECHNICIAN.NAIL FEEDER [address] [place] [address] [facility] Internal Medicine 08/07/24 Sydnee Sumner BREED TO WEAN PRODUCTION TECHNICIAN.TRACK REPAIR LABORER [address] [place] [address] [facility] Internal Medicine 08/07/24 Ampoule Filler And Sealer Relationship Specialty Start Date End Date Domonique Guzman MD [address] [place] [address] PCP - General Internal Medicine 05/26/16 Jimmy Quintana MD [address] [place] [address] Primary Staff Physician Cardiology 01/28/22 Maryam Emmanuel, BREED TO WEAN PRODUCTION TECHNICIAN.NAIL FEEDER [address] [place], [place] [address] [facility] Internal Medicine 08/07/24 Sydnee Sumner APRN.TRACK REPAIR LABORER [address] [place], [place] [address] [facility] Internal Medicine 08/07/24 Ampoule Filler And Sealer Relationship Specialty Start Date End Date Domonique Guzman MD [address] [place], [place] 468441 PCP - General Internal Medicine 05/26/16 Jimmy Quintana MD [address] [place] [address] Primary Staff Physician Cardiology 01/28/22 Maryam Emmanuel APRN.NAIL FEEDER [address] [place], [place] [address] [facility] Internal Medicine 08/07/24 Team Status: Inactive Member Role Status Dates Dr. Domonique Guzman MD Primary Care Provider Active Start: October 30, 2024 End: October 30, 2024 Dr. Domonique Guzman MD Referring Provider Active Start: October 30, 2024 End: October 30, 2024 Mahsa Fischer RETAIL SALESWORKER, RETAIL SALESWORKER-C Attending Provider Active Start: October 30, 2024 End: October 30, 2024 Team Status: Inactive Member Role Status Dates Dr. Domonique Guzman MD Primary Care Provider Active Start: October 30, 2024 End: October 30, 2024 Mahsa Fischer RETAIL SALESWORKER, RETAIL SALESWORKER-C Attending Provider Active Start: October 30, 2024 End: October 30, 2024 Mahsa Fischer RETAIL SALESWORKER, RETAIL SALESWORKER-C Referring Provider Active Start: October 30, 2024 End: October 30, 2024 Ampoule Filler And Sealer Relationship Specialty Start Date End Date Domonique Guzman MD [address] [place], [place] [address]48[address] PCP - General Internal Medicine 05/26/16 Jimmy Quintana MD [address] [facility] [place] [address] Primary Staff Physician Cardiology 01/28/22 Maryam Emmanuel, BREED TO WEAN PRODUCTION TECHNICIAN.NAIL FEEDER [address] [place] [address] Premium Cancellation Clerk Internal Medicine 08/07/24 Sydnee Sumner BREED TO WEAN PRODUCTION TECHNICIAN.TRACK REPAIR LABORER [address] [place] [address] [facility] Internal Medicine 11/21/24 Ampoule Filler And Sealer Relationship Specialty Start Date End Date Domonique Guzman MD [address] [place] [address] PCP - General Internal Medicine 05/26/16 Jimmy Quintana MD [address] [place] [address] Primary Staff Physician Cardiology 01/28/22 Maryam Emmanuel, BREED TO WEAN PRODUCTION TECHNICIAN.NAIL FEEDER [address] [place] [address] [facility] Internal Medicine 08/07/24 Sydnee Sumner, BREED TO WEAN PRODUCTION TECHNICIAN.TRACK REPAIR LABORER [address] [place] [address] [facility] Internal Medicine 11/21/24 Ampoule Filler And Sealer Relationship Specialty Start Date End Date Domonique Guzman MD [address] [place] [address] PCP - General Internal Medicine 05/26/16 Jimmy Quintana MD [address] [place] [address] Primary Staff Physician Cardiology 01/28/22 Maryam Emmanuel, JOHN.NAIL FEEDER [address] [place] [address] Premium Cancellation Clerk Internal Medicine 08/07/24 Sydnee Sumner APRN.TRACK REPAIR LABORER [address] [place] [address] Premium Cancellation Clerk Internal Medicine 11/21/24 Ampoule Filler And Sealer Relationship Specialty Start Date End Date Domonique Guzman MD [address] [place] [address] PCP - General Internal Medicine 05/26/16 Jimmy Quintana MD [address] [place] [address] Primary Staff Physician Cardiology 01/28/22 Maryam Emmanuel APRN.NAIL FEEDER [address] [place] [address] Premium Cancellation Clerk Internal Medicine 08/07/24 01/16/25 Sydnee Sumner APRN.TRACK REPAIR LABORER [address] [place] [address] [facility] Internal Medicine 11/21/24 Maryam Emmanuel APRN.NAIL FEEDER [address] [place] [address] [facility] Internal Medicine 01/17/25 Ampoule Filler And Sealer Relationship Specialty Start Date End Date Domonique Guzman MD [address] [place] [address] PCP - General Internal Medicine 05/26/16 Jimmy Quintana MD [address] [place] [address] Primary Staff Physician Cardiology 01/28/22 Sydnee Sumner APRN.TRACK REPAIR LABORER [address] [place] [address] Premium Cancellation Clerk Internal Medicine 11/21/24 Maryam Emmanuel APRN.NAIL FEEDER [address] [place], [place] [address] Premium Cancellation Clerk Internal Medicine 01/17/25 Team Status: Active Member [...] artery disease Procedures CONSULT TO CARDIOLOGY OFFICE/OUTPATIENT [facility] 60-74 MINUTES Maryam Emmanuel APRN.NAIL FEEDER [address] [place] [address] Referral ID Status Reason Start Date Expiration Date V isits Requested Visits Authorized [id number] Closed PCP Requested Referral 12/12/2021 12/12/2022 1 [...] POST Jimmy Quintana MD [address] [place] [id number] Imaging Referral ID Status Reason Start Date Expiration Date V isits Requested Visits Authorized [id number] Closed Auto-Generate d Referral 12/31/2021 02/07/2022 1 1 Reason Comments Follow Up 1 month Specialty Diagnoses / Procedures Referred By Contac t Referred To Contact Rheumatology Diagnoses Fibromyalgia Procedures CONSULT TO RHEUM/IMMUN DISEASE OFFICE/OUTPATIENT [facility] 60-74 MINUTES ParkMaryam, BREED TO WEAN PRODUCTION TECHNICIAN.NAIL FEEDER [address] [place] [address] Referral ID Status Reason Start Date Expiration Date V isits Requested Visits Authorized [id number] Closed PCP Requested Referral 12/12/2021 12/12/2022 1 1 Reason Comments Radio Gen A21 Specialty Diagnoses / Procedures Referred By Contac t Referred To Contact XR IMAGING Diagnoses Pain in joint, multiple sites Pain in left hip Procedures XR HIP GENERAL 3V PELV/AP/LAT LEFT RADEX HIP UNILATERAL WITH PELVIS 2-3 VIEWS Samantha Butler MD [address] [place] [address] Xr Imaging Referral ID Status Reason Start Date Expiration Date V isits Requested Visits Authorized [id number] Closed Auto-Generate d Referral 01/29/2022 02/28/2023 1 1 Reason Comments Medication Problem Reason Comments Orders Reason Comments Yearly Exam Specialty Diagnoses / Procedures Referred By Contac t Referred To Contact Rheumatology / RHEUMATOLOGY Diagnoses Fibromyalgia Procedures CONSULT TO RHEUM/IMMUN DISEASE OFFICE/OUTPATIENT [facility] 60-74 MINUTES Maryam Emmanuel, BREED TO WEAN PRODUCTION TECHNICIAN.NAIL FEEDER [address] [place] [address] [employer] [address] [place] [address] Referral ID Status Reason Start Date Expiration Date Visits Requested Visits Authorized [id number] Authorized PCP Requested Referral 12/12/2021 01/27/2023 3 [...] HIGH MDM 60-74 MINUTES Suyapa Peraza PA-C [id number] [place] [address] Referral ID Status Reason Start Date Expiration Date V isits Requested Visits Authorized [id number] Closed PCP Requested Referral 04/19/2023 04/18/2024 1 [...] section and content) DATE CREATED AUTHOR 10/03/2024 [facility] DATE CREATED AUTHOR AUTHOR'S ORGANIZ ATION 11/13/2024 [facility] DATE CREATED AUTHOR AUTHOR'S ORGANIZ ATION 01/29/2025 [facility] FOR RECORDS PERTAINING TO PATIENTS WHO ARE [...] BE BASED ON THE PRIMARY CLINICAL RECORDS. [employer] provides no warranty or guarantee of the accuracy or completeness of information in this document.
== END 2025-04-02 18:12 | disposition home or self-care (01) ==
PROVIDERS: Emergency Provider Emergency Medicine; PCP Internal Medicine; Visit Provider Emergency Medicine
DX: S09.90XA Unspecified injury of head, initial encounter (principal); E78.5 Hyperlipidemia, unspecified; Y93.89 Activity, other specified; K21.9 Gastro-esophageal reflux disease without esophagitis; Z79.899 Other long term (current) drug therapy; W01.198A Fall on same level from slipping, tripping and stumbling with subsequent striking against other object, initial encounter; S16.1XXA Strain of muscle, fascia and tendon at neck level, initial encounter
CPT/HCPCS: 70450; 72125; 99282